=== PATIENT | female | born 1950 | race Caucasian/White ===

== ENCOUNTER → 2017-11-12 09:31 | Outpatient (CLI) | payer MEDICARE, OTHER, SELFPAY ==
[2017-11-12 11:04] LABS: Protein, Urine (Random) 10.1 mg/dL (<11.9); Protein:Creat Ratio 115 mg/g CRE (0-200)
[2017-11-12 11:13] LABS: Albumin, Serum 3.8 g/dL (3.2-5.0); BUN 15 mg/dL (7-18); BUN/Creat Ratio 11.8 RATIO (10-20); Calcium,Total 9.5 mg/dL (8.5-10.1); Chloride 105 mmol/L (98-107); Creatinine, Serum 1.27 mg/dL (0.55-1.02); EST Glomerular Filtration Rate 44 mL/min (>60); Est Glom Filt Rate - Afr Amer 54 mL/min (>60); Glucose 147 mg/dL (74-106); Phosphorus 3.4 mg/dL (2.5-4.9); Potassium 4.6 mmol/L (3.5-5.1); Sodium Level 138 mmol/L (136-145)
== END ==
PROVIDERS: Family Provider Family Medicine; PCP Family Medicine; Visit Provider Internal Medicine Nephrology
DX: E11.22 Type 2 diabetes mellitus with diabetic chronic kidney disease (principal); N18.3 Chronic kidney disease, stage 3 (moderate)
CPT/HCPCS: 36415; 80069; 82570; 84156

== ENCOUNTER → 2018-01-30 15:08 | Outpatient (CLI) | payer MEDICARE, OTHER, SELFPAY ==
--- NOTE | 2018-01-30 15:14 | RAD_ITS ---
STUDY: X-RAY - SACROILIAC JOINTS REASON FOR EXAM: Female, 67 years old. Sacroiliac joint dysfunction TECHNIQUE: 3 view(s) of the sacroiliac joints were obtained. COMPARISON: None. FINDINGS: There are degenerative changes of the bilateral sacroiliac joints left worse than right. Normal visualized sacral ala and sacrum. Normal visualized iliac bones. Normal visualized soft tissue structures. RAD/S-I Jts 3 or More Views IMPRESSION: Degenerative changes of the bilateral sacroiliac joints, as described above. Sacroiliac joints are patent. Electronically Signed: Denver Carter DO at 1:39 EDT , Service support ,
--- NOTE | 2018-01-30 15:14 | RAD_ITS ---
STUDY: X-RAY - PELVIS AND RIGHT HIP REASON FOR EXAM: Female, 67 years old. Sacroiliac joint dysfunction TECHNIQUE: Radiological exam, hip, unilateral, with pelvis when performed; 2 or 3 views. COMPARISON: None. FINDINGS: There is a non-specific bowel gas pattern. Normal visualized soft tissue structures. There is cortical sclerosis of the sacroiliac joints consistent with degenerative osteoarthritic changes. Normal bilateral superior and inferior pubic rami. Normal pubic symphysis. Normal bilateral ischial tuberosities. Normal visualized femoral head. Normal acetabulum. There is mild articular joint space narrowing of the hip. RAD/Hip 2-3 Views with Pelvis IMPRESSION: Mild hip joint space narrowing. No fracture or dislocation. Mild arthrosis of the sacroiliac joints with sclerosis. Electronically Signed: Denver Carter DO at 1:53 EDT , Service support ,
[2018-01-30 17:50] LABS: Absolute Lymphocyte Count 2.26 X10^3/ul (0.83-4.51); Absolute Neutrophil Count 4.5 X10^3/uL (2.0-7.7); Basophil# 0.03 X10^3/uL; Basophil% 0.4 % (0-1); Eosinophil# 0.09 X10^3/uL; Eosinophils% 1.2 % (0-5); Hematocrit 38.9 % (37-47); Hemoglobin 12.9 g/dl (12.0-15.0); Lymphocyte # 2.26 X10^3/ul (4.0); Lymphocyte % 29.5 % (19-41); Mean Corp Hgb Conc 33.2 g/gl (32-36); Mean Corpuscular Hgb 31.9 pg (27.0-32.0); Mean Corpuscular Volume 96.3 fL (81-99); Mean Platelet Vol. 10.2 fl (6.2-12.0); Monocyte# 0.75 X10^3/uL; Monocyte% 9.8 % (0-10); Neutrophil # 4.53 X10^3/uL (2.7-7.7); Platelet Count 259 K/mm3 (150-450); RBC Distribution Width CV 13.3 % (11.6-14.6); RBC Distribution Width SD 45.1 fl (35.1-43.9); Red Blood Count 4.04 M/mm3 (4.2-5.4); White Blood Count 7.7 K/mm3 (4.4-11.0)
[2018-01-30 17:51] LABS: POSITIVE COUNT NO; POSITIVE DIFFERENTIAL NO; POSITIVE MORPHOLOGY NO
[2018-01-30 18:19] LABS: ALB/GLOB Ratio 1.1 RATIO (0.9-2.4); AST(SGOT) 18 U/L (15-37); Alanine Aminotransfer ALT/SGPT 19 U/L (13-56); Albumin, Serum 4.1 g/dL (3.2-5.0); Alkaline Phosphatase 73 U/L (45-117); Anion Gap 10 (5-15); BUN 18 mg/dL (7-18); BUN/Creat Ratio 14.9 RATIO (10-20); CRP < 2.90 mg/L (0.0-3.0); Calcium,Total 9.3 mg/dL (8.5-10.1); Chloride 109 mmol/L (98-107); Cholesterol 103 mg/dL (200); Creatinine, Serum 1.21 mg/dL (0.55-1.02); EST Glomerular Filtration Rate 47 mL/min (>60); Est Glom Filt Rate - Afr Amer 57 mL/min (>60); Globulin 3.6 g/dL (2.2-4.2); Glucose 86 mg/dL (74-106); High Density Lipoprotein 45 mg/dL; Potassium 4.2 mmol/L (3.5-5.1); Protein, Total 7.7 g/dL (6.4-8.2); Sodium Level 141 mmol/L (136-145); T4 Free Direct 1.29 ng/dL (0.76-1.46); Thyroid Stim Hormone (TSH) 1.61 uIU/mL (0.358-3.74); Triglycerides 95 mg/dL; Very Low Density Lipoprotein 19 mg/dL (5-40)
[2018-01-30 18:20] LABS: Hemoglobin A1c 6.8 % (4.2-6.3)
[2018-01-30 18:24] LABS: Microalbumin,Random Urine 22.2 mg/L (NO RANGE EST.); Microalbumin:Creatinine Ratio 28.1 mg/g CRE (<30 mg/g CRE)
== END ==
PROVIDERS: Family Provider Family Medicine; PCP Family Medicine; Visit Provider Family Medicine
DX: M53.3 Sacrococcygeal disorders, not elsewhere classified (principal); I10 Essential (primary) hypertension; E11.8 Type 2 diabetes mellitus with unspecified complications
CPT/HCPCS: 36415; 72202; 73502; 80053; 80061; 82043; 82570; 83036; 84439; 84443; 85025; 86140

== ENCOUNTER → 2018-02-21 12:51 | Outpatient (CLI) | payer MEDICARE, OTHER, SELFPAY ==
--- NOTE | 2018-02-21 12:53 | BI_ITS ---
MAMMOGRAPHY - BILATERAL SCREENING REASON FOR EXAM: Female, 67 years old. Routine annual screening examination. PERTINENT HISTORY: Aunt with breast cancer. TECHNIQUE: Digital bilateral breast tavia (3D mammographic acquisition) in the CC and MLO projections. 2-D mediolateral oblique (MLO) and craniocaudad (CC) views of both breasts were obtained. CAD: Full Field Digital Mammography with Computer Added Detection was performed. COMPARISON: Comparison is made with prior study dated August 30, 2012. FINDINGS: Breast Composition: There are scattered areas of fibroglandular density. There are no dominant masses or suspicious calcifications. Stable benign appearing bilateral axillary lymph nodes. Stable 2.6 mm well-defined nodule in the axillary portion of the right breast suggests a very small lymph node. No other significant abnormalities are identified. There has been no significant change since the prior study. BI/SCREENING MAMM (CAD), BILAT IMPRESSION: Stable bilateral screening mammogram. Yearly follow-up mammogram recommended. (A) ASSESSMENT CATEGORY: BIRADS Category 2: Benign. A letter regarding these results will be sent to the patient by the facility within 30 days. Approximately 10% of breast cancers are not detected by mammography. A normal mammogram should not delay biopsy of a clinically suspicious abnormality. [id number] Electronically Signed: Andrey Berry MD at 15:33 EDT Tel [phone], Service support ,
--- NOTE | 2018-02-21 13:00 | BD_ITS ---
STUDY: DUAL ENERGY X-RAY ABSORPTIOMETRY / DXA REASON FOR EXAM: Female, 67 years old. The patient is postmenopausal. Loss of height. TECHNIQUE: Bone Mineral Density (BMD) measurements of lumbar spine and bilateral hips were obtained. COMPARISON: None. FINDINGS: Lumbar Spine (L1-L4): g/cm2 (1.095) / T-score (-0.6) / Z-score (1.0) Findings are suggestive of normal bone density with a low fracture risk. Left Femur Total: g/cm2 (0.900) / T-score (-0.9) / Z-score (0.6) Left Femoral Neck: g/cm2 (0.853) / T-score (-1.3) / Z-score (0.3) Right Femur Total: g/cm2 (0.882) / T-score (-1.0) / Z-score (0.4) Right Femoral Neck: g/cm2 (0.875) / T-score (-1.2) / Z-score (0.5) BD/Dexa Bone Density Study IMPRESSION: The patient is considered osteopenic as outlined below according to World [place] Organization (WHO) criteria with a moderate fracture risk. Reference Information: The T-score is the number of standard deviations above or below the standard which is normal for young adults at their peak bone mineral density. The World Health Organization (WHO) interprets the T-scores as follows: Above -1 Normal bone density Between -1 and -2.5 Osteopenia Equal to / or below -2.5 Osteoporosis As a practical clinical guideline, osteopenia may be graded as follows: Mild -1 through -1.5 Moderate -1.6 through -2.0 Severe -2.1 through -2.4 The Z-score is the number of standard deviations above or below age-matched controls. A Z-score of less than -1.5 would be considered abnormal. References: 1. NIH Osteoporosis and Related Bone Diseases http://www.osteo.org 2. International Society for Clinical Densitometry http://www.iscd.org 3. National Osteoporosis Foundation http://www.nof.org Electronically Signed: Andrey Berry MD at 15:47 EDT Tel [phone], Service support ,
== END ==
PROVIDERS: Family Provider Family Medicine; PCP Family Medicine; Visit Provider Family Medicine
DX: Z12.31 Encounter for screening mammogram for malignant neoplasm of breast (principal); Z78.0 Asymptomatic menopausal state; M85.80 Other specified disorders of bone density and structure, unspecified site
CPT/HCPCS: 77063; 77067; 77080

== ENCOUNTER → 2018-07-16 08:41 | Outpatient (CLI) | payer MEDICARE, OTHER, SELFPAY ==
[2018-07-16 10:07] LABS: Albumin, Serum 3.7 g/dL (3.2-5.0); BUN 13 mg/dL (7-18); BUN/Creat Ratio 11.5 RATIO (10-20); Calcium,Total 9.3 mg/dL (8.5-10.1); Chloride 108 mmol/L (98-107); Creatinine, Serum 1.13 mg/dL (0.55-1.02); EST Glomerular Filtration Rate 51 mL/min (>60); Est Glom Filt Rate - Afr Amer 61 mL/min (>60); Glucose 122 mg/dL (74-106); Phosphorus 3.6 mg/dL (2.5-4.9); Potassium 4.2 mmol/L (3.5-5.1); Sodium Level 143 mmol/L (136-145)
[2018-07-16 11:14] LABS: Protein, Urine (Random) 12.6 mg/dL (<11.9); Protein:Creat Ratio 105 mg/g CRE (0-200)
== END ==
PROVIDERS: Family Provider Family Medicine; PCP Family Medicine; Referring Provider Internal Medicine Nephrology; Visit Provider Internal Medicine Nephrology
DX: E11.22 Type 2 diabetes mellitus with diabetic chronic kidney disease (principal); N18.3 Chronic kidney disease, stage 3 (moderate)
CPT/HCPCS: 36415; 80069; 82570; 84156

== ENCOUNTER → 2019-02-26 09:00 | Outpatient (CLI) | payer MEDICARE, OTHER, SELFPAY ==
[2018-03-26 13:05] VITALS: BMI 31.8
[2019-02-26 10:30] LABS: Albumin, Serum 3.9 g/dL (3.2-5.0); BUN 17 mg/dL (7-18); BUN/Creat Ratio 13.7 RATIO (10-20); Calcium,Total 9.1 mg/dL (8.5-10.1); Chloride 109 mmol/L (98-107); Creatinine, Serum 1.24 mg/dL (0.55-1.02); EST Glomerular Filtration Rate 45 mL/min (>60); Est Glom Filt Rate - Afr Amer 55 mL/min (>60); Glucose 128 mg/dL (74-106); Phosphorus 3.3 mg/dL (2.5-4.9); Potassium 4.4 mmol/L (3.5-5.1); Sodium Level 140 mmol/L (136-145)
[2019-02-26 10:39] LABS: PTHIN 62.9 pg/mL (18.4-80.1)
[2019-02-26 13:24] LABS: Protein:Creat Ratio 168 mg/g CRE (0-200)
[2019-02-26 16:25] LABS: Hemoglobin A1c 6.7 % (4.2-6.3)
[2019-02-26 16:26] LABS: Thyroid Stim Hormone (TSH) 0.91 uIU/mL (0.358-3.74)
== END ==
PROVIDERS: Internal Medicine Nephrology; Family Provider Family Medicine; PCP Family Medicine; Referring Provider Family Medicine; Visit Provider Family Medicine
DX: E11.22 Type 2 diabetes mellitus with diabetic chronic kidney disease (principal); N18.3 Chronic kidney disease, stage 3 (moderate); E03.9 Hypothyroidism, unspecified
CPT/HCPCS: 36415; 80069; 82570; 83036; 83970; 84156; 84443

== ENCOUNTER → 2019-03-19 14:48 | Outpatient (CLI) | payer MEDICARE, SELFPAY ==
--- NOTE | 2019-03-19 14:54 | BI_ITS ---
MAMMOGRAPHY - BILATERAL SCREENING REASON FOR EXAM: Female, 68 years old. Routine annual screening examination. PERTINENT HISTORY: Aunt with breast cancer. TECHNIQUE: Digital bilateral breast saira (3D mammographic acquisition) in the CC and MLO projections. 2-D mediolateral oblique (MLO) and craniocaudad (CC) views of both breasts were obtained. CAD: Full Field Digital Mammography with Computer Added Detection was performed. COMPARISON: Comparison is made with prior study dated February 21, 2018 and August 30, 2012. FINDINGS: Breast Composition: There are scattered areas of fibroglandular density. There are no dominant masses or suspicious calcifications. Stable 2.6 mm well-defined nodule in the axillary portion of the right breast. Stable appearance of the bilateral axillary lymph nodes. No other significant abnormalities are identified. There has been no significant change since the prior study. BI/SCREEN MAMM (CAD) W/SAIRA BILAT IMPRESSION: Stable bilateral screening mammogram. Yearly follow-up mammogram recommended. (A) ASSESSMENT CATEGORY: BIRADS Category 2: Benign. A letter regarding these results will be sent to the patient by the facility within 30 days. Approximately 10% of breast cancers are not detected by mammography. A normal mammogram should not delay biopsy of a clinically suspicious abnormality. [id number] Electronically Signed: Andrey Berry, at 15:50 EDT , Service support ,
== END ==
PROVIDERS: Family Provider Family Medicine; PCP Family Medicine; Referring Provider Nurse Practitioner Adult Health; Visit Provider Nurse Practitioner Adult Health
DX: Z12.31 Encounter for screening mammogram for malignant neoplasm of breast (principal)
CPT/HCPCS: 77063; 77067

== ENCOUNTER → 2019-03-26 09:25 | Outpatient (CLI) | payer MEDICARE, OTHER, SELFPAY ==
[2019-03-25 12:45] VITALS: BMI 31.5
[2019-03-26 10:33] LABS: BNP,B-Type NATRIURETIC PEPTIDE 202.1 pg/mL (0-100)
[2019-03-26 10:36] LABS: AST(SGOT) 17 U/L (15-37); Alanine Aminotransfer ALT/SGPT 18 U/L (13-56); Albumin, Serum 3.9 g/dL (3.2-5.0); Alkaline Phosphatase 71 U/L (45-117); Anion Gap 6 (5-15); BUN 17 mg/dL (7-18); BUN/Creat Ratio 13.3 RATIO (10-20); Bilirubin, Direct 0.18 mg/dL (0.00-0.30); Calcium,Total 9.2 mg/dL (8.5-10.1); Chloride 109 mmol/L (98-107); Cholesterol 145 mg/dL (200); Creatinine, Serum 1.28 mg/dL (0.55-1.02); EST Glomerular Filtration Rate 44 mL/min (>60); Est Glom Filt Rate - Afr Amer 53 mL/min (>60); Globulin 3.5 g/dL (2.2-4.2); Glucose 136 mg/dL (74-106); High Density Lipoprotein 46 mg/dL; Potassium 4.2 mmol/L (3.5-5.1); Protein, Total 7.4 g/dL (6.4-8.2); Sodium Level 139 mmol/L (136-145); Thyroid Stim Hormone (TSH) 0.91 uIU/mL (0.358-3.74); Triglycerides 171 mg/dL; Very Low Density Lipoprotein 34 mg/dL (5-40)
== END ==
PROVIDERS: Family Provider Family Medicine; PCP Family Medicine; Referring Provider Internal Medicine Cardiovascular Disease; Visit Provider Internal Medicine Cardiovascular Disease
DX: I50.32 Chronic diastolic (congestive) heart failure (principal); E78.2 Mixed hyperlipidemia
CPT/HCPCS: 36415; 80048; 80061; 80076; 83880; 84443

== ENCOUNTER → 2019-04-11 13:44 | Outpatient (CLI) | payer MEDICARE, OTHER, SELFPAY ==
[2019-03-25 12:45] VITALS: BMI 31.5
--- NOTE | 2019-04-11 13:46 | ECHOD_ITS ---
Reason For Study: AFIB/BLUTTER Procedure This was a 2D Doppler, Color Flow transthoracic echocardiogram. The study was technically difficult. Due to arrhythmia. Exam performed in department. Left Ventricle Normal LV size. Left ventricular systolic function is lower limits of normal. The estimated ejection fraction is 53 %. Unable to assess diastolic dysfunction due to arrhythmia. No regional wall motion abnormalities noted. Right Ventricle Normal RV size. Normal systolic function. Atria Normal left atrium. Normal right atrium. Mitral Valve Moderate focal mitral valve calcification, bileaflet. Moderate focal mitral valve calcification of the anterior leaflet. Mild (1+) eccentric mitral valve insufficiency. Tricuspid Valve Normal tricuspid valve. Mild tricuspid valve insufficiency. Pulmonary artery systolic pressure is 26 mmHg. Aortic Valve Trisinus/trileaflet aortic valve. Mild (1+) aortic valve insufficiency. Pulmonic Valve Normal pulmonic valve. Great Vessels Normal aortic root. The pulmonary artery is normal size. Normal inferior vena cava. Pericardium/Pleural No pericardial effusion. MMode/2D Measurements & Calculations LVIDd: 4.1 cm IVSd: 1.0 cm LVOT diam: 2.0 cm LVIDs: 2.9 cm LVPWd: 1.0 cm LVOT area: 3.2 cm2 RVDd: 3.0 cm FS: 29.8 % Ao root diam: 3.5 cm LAV(MOD-bp): 66.5 ml EDV(MOD-sp4): 50.5 ml LAV(MOD-bp) Indexed: 36.1 ml/m2 ESV(MOD-sp4): 20.5 ml LAV(MOD-sp2): 66.9 ml EF(MOD-sp4): 59.5 % LAV(MOD-sp4): 60.4 ml EDV(MOD-sp2): 53.7 ml SV(MOD-sp4): 30.1 ml SV(MOD-sp2): 29.1 ml EF(MOD-sp2): 54.3 % LA A4 area: 19.2 cm2 LA dimension(2D): 4.0 cm RA A4 area: 16.4 cm2 Doppler Measurements & Calculations MV E max tonya: 117.3 cm/sec MV V2 max: 123.8 cm/sec Ao V2 max: 143.0 cm/sec MV max P.1 mmHg Ao max P.2 mmHg MV V2 mean: 59.6 cm/sec Ao V2 mean: 106.9 cm/sec MV mean P.8 mmHg Ao mean P.8 mmHg MV V2 VTI: 30.1 cm Ao V2 VTI: 26.4 cm MVA(VTI): 2.1 cm2 OTIS(I,D): 2.3 cm2 OTIS(V,D): 2.2 cm2 AI max tonya: 410.2 cm/sec LV V1 max: 97.6 cm/sec MR max tonya: 460.4 cm/sec AI max P.3 mmHg LV V1 max P.8 mmHg MR max P.8 mmHg LV V1 mean P.3 mmHg MR mean tonya: 362.1 cm/sec AI dec slope: 179.8 cm/sec2 LV V1 mean: 72.7 cm/sec MR mean P.4 mmHg AI P1/2t: 668.1 msec LV V1 VTI: 19.2 cm MR VTI: 146.7 cm SV(LVOT): 61.8 ml PA V2 max: 73.8 cm/sec TR max tonya: 234.3 cm/sec TR max P.0 mmHg Interpretation Summary Normal LV size. Left ventricular systolic function is lower limits of normal. The estimated ejection fraction is 53 %. Unable to assess diastolic dysfunction due to arrhythmia. Mild tricuspid valve insufficiency. Ordering Physician: Mike Joiner Referring Physician: Cuong Patel Performed By: Blele Pal, FER, RVT
== END ==
PROVIDERS: Family Provider Family Medicine; PCP Family Medicine; Referring Provider Internal Medicine Cardiovascular Disease; Visit Provider Internal Medicine Cardiovascular Disease
DX: I34.0 Nonrheumatic mitral (valve) insufficiency (principal); I34.2 Nonrheumatic mitral (valve) stenosis; I48.91 Unspecified atrial fibrillation
CPT/HCPCS: 93306

== ENCOUNTER → 2019-04-21 07:35 | Outpatient (CLI) | payer MEDICARE, OTHER, SELFPAY ==
[2019-03-25 12:45] VITALS: BMI 31.5
[2019-04-21 08:38] LABS: Albumin, Serum 3.8 g/dL (3.2-5.0); BUN 27 mg/dL (7-18); BUN/Creat Ratio 19.1 RATIO (10-20); Calcium,Total 9.2 mg/dL (8.5-10.1); Chloride 106 mmol/L (98-107); Creatinine, Serum 1.41 mg/dL (0.55-1.02); EST Glomerular Filtration Rate 39 mL/min (>60); Est Glom Filt Rate - Afr Amer 47 mL/min (>60); Glucose 157 mg/dL (74-106); Phosphorus 3.2 mg/dL (2.5-4.9); Sodium Level 142 mmol/L (136-145)
== END ==
PROVIDERS: Family Provider Family Medicine; PCP Family Medicine; Referring Provider Internal Medicine Nephrology; Visit Provider Internal Medicine Nephrology
DX: N18.3 Chronic kidney disease, stage 3 (moderate) (principal)
CPT/HCPCS: 36415; 80069

== ENCOUNTER → 2019-05-16 07:45 | Outpatient (CLI) | payer MEDICARE, OTHER, SELFPAY ==
[2019-03-25 12:45] VITALS: BMI 31.5
[2019-05-16 08:43] LABS: Absolute Lymphocyte Count 2.03 X10^3/uL (0.83-4.51); Absolute Neutrophil Count 5.6 X10^3/uL (2.0-7.7); Basophil# 0.02 X10^3/uL; Basophil% 0.2 % (0-1); Eosinophil# 0.09 X10^3/uL; Eosinophils% 1.1 % (0-5); Hematocrit 40.3 % (37-47); Hemoglobin 13.5 g/dL (12.0-15.0); Lymphocyte # 2.03 X10^3/ul (4.0); Lymphocyte % 23.8 % (19-41); Mean Corp Hgb Conc 33.5 g/dL (32-36); Mean Corpuscular Hgb 32.5 pg (27.0-32.0); Mean Corpuscular Volume 96.9 fL (81-99); Mean Platelet Vol. 9.4 fl (6.2-12.0); Monocyte# 0.81 X10^3/uL; Monocyte% 9.5 % (0-10); NRBC Flagged by Analyzer 0 % (0-5); Neutrophil # 5.55 X10^3/uL (2.7-7.7); Neutrophil % 65.2 % (47-70); Platelet Count 231 K/mm3 (150-450); RBC Distribution Width CV 13.2 % (11.6-14.6); RBC Distribution Width SD 46.6 fl (35.1-43.9); Red Blood Count 4.16 M/mm3 (4.2-5.4); White Blood Count 8.5 K/mm3 (4.4-11.0)
[2019-05-16 09:15] LABS: Anion Gap 8 (5-15); BUN 20 mg/dL (7-18); BUN/Creat Ratio 14.8 RATIO (10-20); Calcium,Total 9.1 mg/dL (8.5-10.1); Chloride 109 mmol/L (98-107); Creatinine, Serum 1.35 mg/dL (0.55-1.02); EST Glomerular Filtration Rate 41 mL/min (>60); Est Glom Filt Rate - Afr Amer 50 mL/min (>60); Glucose 145 mg/dL (74-106); Sodium Level 143 mmol/L (136-145)
== END ==
PROVIDERS: Family Provider Family Medicine; PCP Family Medicine; Referring Provider Physician Assistant Medical; Visit Provider Physician Assistant Medical
DX: I48.1 Persistent atrial fibrillation (principal); I11.0 Hypertensive heart disease with heart failure; I50.32 Chronic diastolic (congestive) heart failure
CPT/HCPCS: 36415; 80048; 83735; 85025

== ENCOUNTER 2023-03-19 18:38 | Inpatient (IN) | payer MEDICARE, OTHER, SELFPAY ==
[2023-03-19] VITALS (21 sets, daily range): BP systolic 66–133; BP diastolic 28–98; PULSE 38–89; RESP 13–25; TEMP 36.2–37.1; O2SAT 89–100; BMI 30.2; BMI 28.3
--- NOTE | 2023-03-19 18:39 | ED.RN ---
This nurse started triaging pt in room d/t no rooms being available. while getting pt in computer pt went unresponsive and HR read 20 on monitor. staff assist called and pt taken back to room 2, dr. vazquez at bedside.
[2023-03-19] MEDS: Atropine Sulfate 1 MG/10 ML Syringe IV (18:42)
[2023-03-19] MEDS: Epinephrine IV 1 mg/10 ml syringe 0.5 MG IV (18:47)
[2023-03-19] MEDS: Metoclopramide 10 MG/2 ML Vial 5 MG IV (18:50)
[2023-03-19 19:03] LABS: Bedside Glucose 185 mg/dL (74-106)
[2023-03-19 19:03] LABS: Absolute Neutrophil Count 5.7 X10^3/uL (2.0-7.7); Basophil# 0.06 X10^3/uL; Basophil% 0.6 % (0-1); Eosinophils% 1.1 % (0-5); Hematocrit 37.4 % (37-47); Hemoglobin 11.8 g/dL (12.0-15.0); Lymphocyte % 27.8 % (19-41); Mean Corp Hgb Conc 31.6 g/dL (32-36); Mean Corpuscular Hgb 29.9 pg (27.0-32.0); Mean Corpuscular Volume 94.7 fL (81-99); Mean Platelet Vol. 10.1 fl (6.2-12.0); Monocyte# 0.83 X10^3/uL; Monocyte% 8.9 % (0-10); NRBC Flagged by Analyzer 0 % (0-5); Neutrophil # 5.72 X10^3/uL (2.7-7.7); Neutrophil % 61.1 % (47-70); Platelet Count 230 K/mm3 (150-450); RBC Distribution Width CV 15.5 % (11.6-14.6); RBC Distribution Width SD 53.3 fl (35.1-43.9); Red Blood Count 3.95 M/mm3 (4.2-5.4); White Blood Count 9.4 K/mm3 (4.4-11.0)
[2023-03-19 19:20] LABS: Anion Gap 10 (5-15); BUN 40 mg/dL (7-18); BUN/Creat Ratio 19.8 RATIO (10-20); Calcium,Total 9.3 mg/dL (8.5-10.1); Chloride 109 mmol/L (98-107); Creatinine, Serum 2.02 mg/dL (0.55-1.02); EST Glomerular Filtration Rate 26 mL/min (>60); Est Glom Filt Rate - Afr Amer 31 mL/min (>60); Estimated Creatinine Clearance 21.99 ml/min; Glucose 205 mg/dL (74-106); Potassium 5.2 mmol/L (3.5-5.1); Sodium Level 137 mmol/L (136-145); Troponin-I HS (w/2H Reflex) 20 pg/mL (3.0-54.0)
[2023-03-19] MEDS: fentaNYL 100 MCG/2 ML Ampul 12.5 MCG IV (19:49)
--- NOTE | 2023-03-19 19:57 | EDS_ITS ---
HPI History of Present Illness Chief Complaint: Chest Pain Detail of Chief Complaint: Syncope Informant: patient and family Onset/Context/Timing Onset: Today Narrative Narrative: Patient presents via private vehicle secondary to syncopal episodes at home. Patient had a syncopal episode in triage with a heart rate documented in the 20s. She was immediately brought back to room 2. She was placed in Trendelenburg position. Blood pressure was 66 systolic and heart rate was in the low 30s. Family states that she is started complaining of some chest pressure not feeling well about 15 minutes before they arrived. Once the patient is awake and able to tell us her history she states that she has not felt well all day. She does report some chest pressure. She does have a history of atrial fibrillation. She denies any recent medication changes. Her doctors are in [place] and she just arrived to the area 4 days ago. It does appear patient used to live locally and we do have some old records on her. Patient is anticoagulated on Eliquis and is confident that she has not missed any doses. [facility] Medical History (Updated 03/19/23 @ 20:[address] Sanam Stubbs MD) Chronic diastolic (congestive) heart failure Chronic kidney disease (CKD) Essential (primary) hypertension Hyperlipidemia Incomplete left bundle branch block (LBBB) Nonrheumatic mitral valve stenosis with insufficiency Nonrheumatic tricuspid (valve) insufficiency Obesity Persistent atrial fibrillation Secondary pulmonary arterial hypertension Type 2 diabetes mellitus Home Medications insulin detemir U-100 100 unit/mL (3 mL) subcutaneous pen 8 unit subcut DAILY 03/26/18 [History Last Taken Unknown] levothyroxine 25 mcg tablet 25 mcg PO QDAY 03/26/18 [History Last Taken Unknown] metformin 500 mg tablet 500 mg PO BID 03/26/18 [History Last Taken Unknown] apixaban 5 mg tablet (Eliquis) 5 mg PO BID #60 tabs 03/09/20 [Rx Last Taken Unknown] diltiazem HCl 300 mg capsule,extended release 24 hr 300 mg PO QDAY #90 caps 04/13/20 [Rx Last Taken Unknown] cyanocobalamin (vitamin B-12) 1,000 mcg tablet (Vitamin B-12) 1,000 mcg PO DAILY 03/19/23 [History Last Taken Unknown] furosemide 20 mg tablet 20 mg PO BID 03/19/23 [History Last Taken Unknown] metoprolol tartrate 100 mg tablet 150 mg PO BID 03/19/23 [History Last Taken Unknown] olmesartan 20 mg tablet 10 mg PO DAILY 03/19/23 [History Last Taken Unknown] rosuvastatin 10 mg tablet 10 mg PO DAILY 03/19/23 [History Last Taken Unknown] Allergy/AdvReac Type Severity Reaction Status Date / Time MARCO Inhibitors AdvReac Cough Verified 03/19/23 18:45 Family History Mother CAD (coronary artery disease) Brother , Age 65 [place] CAD (coronary artery disease) Atrial fibrillation Myocardial infarction Father , in MVA No problems noted. Surgical History History of cholecystectomy S/P ALY (total abdominal hysterectomy) Social History Smoking Status: Former smoker how long ago did patient quit smoking: greater than 20 years alcohol intake: never ROS ROS ED Constitutional Constitutional ED: Denies chills or fever(s) Eyes Eyes: Denies change in vision ENT ENT ED: Denies sore throat Cardiovascular Cardiovascular: Reports chest pain Respiratory/Chest Respiratory/Chest: Denies cough or dyspnea Gastrointestinal Gastrointestinal: Reports nausea and vomiting; Denies abdominal pain Musculoskeletal Musculoskeletal: Denies back pain Neurologic Neurologic: Denies headache(s) or paresthesias EXAM Physical Exam Const Vital Signs: 03/19/23 18:41 03/19/23 18:45 03/19/23 18:52 Temperature 97.2 F L Temperature Source Temporal Pulse Rate 38 L 42 L 81 Respiratory Rate 18 13 Respiratory Effort Respiratory Pattern Blood Pressure 121/28 H 66/49 L 94/65 Blood Pressure Mean 59 54 74 Pulse Ox 97 94 Oxygen Delivery Method Room Air Room Air Oxygen Flow Rate (L/min) 03/19/23 18:55 03/19/23 19:01 03/19/23 19:02 Temperature Temperature Source Pulse Rate 56 L 47 L Respiratory Rate 16 Respiratory Effort Respiratory Pattern Blood Pressure 104/73 78/53 L Blood Pressure Mean 83 61 Pulse Ox 99 95 Oxygen Delivery Method Room Air Nasal Cannula Nasal Cannula Oxygen Flow Rate (L/min) 5 5 03/19/23 19:09 03/19/23 19:14 03/19/23 19:18 Temperature Temperature Source Pulse Rate 48 L 41 L Respiratory Rate 16 15 Respiratory Effort Normal Respiratory Pattern Normal Blood Pressure 81/47 L 78/55 L Blood Pressure Mean 58 62 Pulse Ox 92 Oxygen Delivery Method Nasal Cannula Oxygen Flow Rate (L/min) 5 03/19/23 19:34 03/19/23 19:53 Temperature Temperature Source Pulse Rate 56 L 60 Respiratory Rate 21 H 15 Respiratory Effort Respiratory Pattern Blood Pressure 108/80 122/93 H Blood Pressure Mean 89 102 Pulse Ox 96 95 Oxygen Delivery Method Nasal Cannula Oxygen Flow Rate (L/min) 5 5 Positive well nourished and well developed General Appearance ED: well developed HEENT Reports dry mucous membranes Mouth ED: Yes dry mucous membranes Mouth: dry mucous membranes Eyes EOMs intact bilaterally Chest Wall inspection of chest normal and palpation of chest normal Resp normal respiratory effort and clear to auscultation bilaterally Cardio Rate: bradycardia GI non-tender Palpation: soft Extremity normal to inspection Neuro oriented x3 Neuro Narrative: No focal neurologic deficits. MDM MDM MDM Narrative Medical decision making narrative: Pacer pads were placed and the patient IV line was established. Patient was given atropine with no response in her heart rate. IV fluids are initiated. Patient is given 0.5 epinephrine with improvement in her heart rate and blood pressure. Labwork obtained to evaluate for leukocytosis, anemia, and electrolyte derangement. Chest x-ray obtained to evaluate for acute lung pathology, cardiac size, or mediastinal abnormality. EKG obtained to evaluate for cardiac arrhythmia/ischemia. After several minutes patient's heart rate did slowly drop back down into the 40s and blood pressure did drop. She was initiated on an epinephrine drip. Lab Data Attestation: I reviewed the patient's lab results. Labs: Laboratory Results - last 24 hr 03/19/23 03/19/23 03/19/23 18:42 18:42 18:44 WBC 9.4 RBC 3.95 L Hgb 11.8 L Hct 37.4 MCV 94.7 MCH 29.9 MCHC 31.6 L RDW Std Deviation 53.3 H RDW Coeff of [place] 15.5 H Plt Count 230 MPV 10.1 Immature Gran % (Auto) 0.500 Neut % (Auto) 61.1 Lymph % (Auto) 27.8 [place] % (Auto) 8.9 Eos % (Auto) 1.1 Baso % (Auto) 0.6 Absolute Neuts (auto) 5.7 Absolute Lymphs (auto) 2.60 Nucleated RBC % 0 Sodium 137 Potassium 5.2 H Chloride 109 H Carbon Dioxide 18.0 L Anion Gap 10 BUN 40 H Creatinine 2.02 H Estim Creat Clear Calc 21.99 Est GFR (MDRD) Af Amer 31 L Est GFR (MDRD) Non-Af 26 L BUN/Creatinine Ratio 19.8 Glucose 205 H Calcium 9.3 Troponin I High Sens 20 POC Glucose 185 H EKG Initial EKG: Attestation: I personally reviewed and interpreted this EKG as follows: Interpretation: Atrial Fibrillation (Atrial fibrillation with a ventricular response of 30. No significant ST change.) Follow-up EKG: Attestation: I personally reviewed and interpreted this EKG as follows: Interpretation: Atrial Fibrillation (Atrial fibrillation with a rate of 54 bpm.) Treatment and Re-Evaluation :: CBC is unremarkable. Chemistry studies reveal a bicarb of 18, BUN of 40, creatinine of 2.02. Glucose is 205. Troponin is 20. Chest x-ray is pending at this time. EKG x2 reveals atrial fibrillation with no specific ST change. On epinephrine drip at 0.3 mics per kilo heart rate is in the 50s and blood pressure is between 100-110 systolic. Given that she is on Cardizem she was given calcium gluconate. I spoke with Dr. Wynn, on-call for cardiology. He recommended switching her epinephrine drip to dopamine and placing her in the ICU. Her rate control medicines should be held. I will speak with the hospitalist. Critical Care Time Critical Care Time: Yes Critical care time (excluding procedures): 30-74 minutes (45 mins), Discussing w/Patient &/or Family/Lubricating Machine Tender, Discussing w/Consultants, Arranging Admission or Transfer and Performing Direct Patient Care at Bedside Discharge Plan Triage Chief Complaint: Chest Pain ED Provider: Sanam Stubbs Dx/Rx/DC Orders Clinical Impression: Bradycardia, Syncope Prescriptions: No Action levothyroxine 25 mcg tablet 25 mcg PO QDAY metformin 500 mg tablet 500 mg PO BID insulin detemir U-100 100 unit/mL (3 mL) insulin pen 8 unit SC DAILY metoprolol tartrate 100 mg Tablet 150 mg PO BID furosemide 20 mg Tablet 20 mg PO BID olmesartan 20 mg Tablet 10 mg PO DAILY rosuvastatin 10 mg Tablet 10 mg PO DAILY cyanocobalamin (vitamin B-12) [Vitamin B-12] 1,000 mcg Tablet 1,000 mcg PO DAILY Eliquis 5 mg tablet 5 mg PO BID Qty: 60 11RF diltiazem HCl 300 mg capsule,extended release 24hr 300 mg PO QDAY Qty: 90 3RF Primary Care Provider: Care Physician,No Primary Referrals: Care Physician,No Primary [Primary Care Provider] - Disposition Disposition: Acute Care Hospital [facility]
--- NOTE | 2023-03-19 20:05 | RAD_ITS ---
INDICATION: chest pain EXAMINATION/TECHNIQUE: X-RAY - XR Chest 1 View COMPARISON: Chest x-ray August 11, 2015. FINDINGS: LINES/DEVICES: None. LUNGS: Symmetric normal lung volumes. No airspace opacity or abnormal interstitial pattern. No nodule or mass. No pleural effusion or pneumothorax. MEDIASTINUM AND CARDIOVASCULAR STRUCTURES: Normal size and contour of the cardiomediastinal silhouette. No evidence of pulmonary vascular congestion. Aortic arch intimal calcifications noted. BONES AND SOFT TISSUES: No fracture or focal osseous lesion. Mild lateral curvature lower thoracic spine, convex right. Degenerative endplate changes noted. RAD/Chest 1 View (Portable) IMPRESSION: 1. No radiographic evidence of acute cardiopulmonary disease. Electronically Signed: Gennaro Donaldson DO at 20:33 EDT ,
[2023-03-19] MEDS: DOPamine IV 800 MG/250 ML IV.SOLN. 7.7 MG CONT INF (20:06)
--- NOTE | 2023-03-19 20:28 | HP.PCM.HOS_ITS ---
HPI - General General Date of Admission: 03/19/23 Date of Service: 03/19/23 Chief Complaint: Syncope HPI Narrative AMALIA CORRAL, is a 72 F with a significant history of hypothyroidism; atrial fibrillation; and hypertension who presents emergency department with multiple episodes of syncope on the same day of presentation. Associated with her symptoms is lightheadedness, nausea, vomiting, blurry vision and malaise. At the triage of the emergency department patient's passed out and her heart rate was in the 20s. At the emergency department initially systolic blood pressure was in the 60s and heart rate was in the 30s. Patient was placed in reverse Trendelenburg position. Patient continued to vomit at the emergency department. Patient was given atropine, epinephrine and was started on epinephrine drip. Patient is on calcium channel rajinder at home and also on a beta-rajinder. She was given calcium gluconate in an attempt to reverse the calcium channel rajinder. Emergent department discussed the case with cardiology who recommended the patient be started on dopamine drip. Patient denies any other symptoms except the posterior side of her right knee. She is on Eliquis and reportedly has been compliant with her Eliquis. Reportedly she moved from [place] 2 days ago and lives with a daughter. Her was recently flown to [facility] for head bleed. [facility] Medical History (Updated 03/20/23 @ 07:[address] Geeta Michaud DO) Chronic diastolic (congestive) heart failure Chronic kidney disease (CKD) Essential (primary) hypertension Hyperlipidemia Incomplete left bundle branch block (LBBB) Nonrheumatic mitral valve stenosis with insufficiency Nonrheumatic tricuspid (valve) insufficiency Obesity Persistent atrial fibrillation Secondary pulmonary arterial hypertension Type 2 diabetes mellitus Home Medications insulin detemir U-100 100 unit/mL (3 mL) subcutaneous pen 8 unit subcut DAILY 03/26/18 [History Last Taken Unknown] levothyroxine 25 mcg tablet 25 mcg PO QDAY 03/26/18 [History Last Taken Unknown] metformin 500 mg tablet 500 mg PO BID 03/26/18 [History Last Taken Unknown] apixaban 5 mg tablet (Eliquis) 5 mg PO BID #60 tabs 03/09/20 [Rx Last Taken Unknown] diltiazem HCl 300 mg capsule,extended release 24 hr 300 mg PO QDAY #90 caps 04/13/20 [Rx Last Taken Unknown] cyanocobalamin (vitamin B-12) 1,000 mcg tablet (Vitamin B-12) 1,000 mcg PO DAILY 03/19/23 [History Last Taken Unknown] furosemide 20 mg tablet 20 mg PO BID 03/19/23 [History Last Taken Unknown] metoprolol tartrate 100 mg tablet 150 mg PO BID 03/19/23 [History Last Taken Unknown] olmesartan 20 mg tablet 10 mg PO DAILY 03/19/23 [History Last Taken Unknown] rosuvastatin 10 mg tablet 10 mg PO DAILY 03/19/23 [History Last Taken Unknown] Allergy/AdvReac Type Severity Reaction Status Date / Time MARCO Inhibitors AdvReac Cough Verified 03/19/23 18:45 Family History Mother CAD (coronary artery disease) Brother , Age 65 [place] CAD (coronary artery disease) Atrial fibrillation Myocardial infarction Father , in MVA No problems noted. Surgical History History of cholecystectomy S/P ALY (total abdominal hysterectomy) Social History Smoking Status: Former smoker how long ago did patient quit smoking: greater than 20 years alcohol intake: never ROS ROS Narrative Pertinent positives and pertinent negatives as noted in HPI. All other systems were reviewed and are negative Vital Signs Vital Signs Vital Signs: 03/19/23 18:41 03/19/23 18:45 03/19/23 18:52 Temperature 97.2 F L Temperature Source Temporal Pulse Rate 38 L 42 L 81 Respiratory Rate 18 13 Respiratory Effort Respiratory Pattern Blood Pressure 121/28 H 66/49 L 94/65 Blood Pressure Mean 59 54 74 Pulse Ox 97 94 Oxygen Delivery Method Room Air Room Air Oxygen Flow Rate (L/min) 03/19/23 18:55 03/19/23 19:01 03/19/23 19:02 Temperature Temperature Source Pulse Rate 56 L 47 L Respiratory Rate 16 Respiratory Effort Respiratory Pattern Blood Pressure 104/73 78/53 L Blood Pressure Mean 83 61 Pulse Ox 99 95 Oxygen Delivery Method Room Air Nasal Cannula Nasal Cannula Oxygen Flow Rate (L/min) 5 5 03/19/23 19:09 03/19/23 19:14 03/19/23 19:18 Temperature Temperature Source Pulse Rate 48 L 41 L Respiratory Rate 16 15 Respiratory Effort Normal Respiratory Pattern Normal Blood Pressure 81/47 L 78/55 L Blood Pressure Mean 58 62 Pulse Ox 92 Oxygen Delivery Method Nasal Cannula Oxygen Flow Rate (L/min) 5 03/19/23 19:34 03/19/23 19:53 03/19/23 20:06 Temperature Temperature Source Pulse Rate 56 L 60 46 L Respiratory Rate 21 H 15 15 Respiratory Effort Respiratory Pattern Blood Pressure 108/80 122/93 H 92/59 L Blood Pressure Mean 89 102 70 Pulse Ox 96 95 99 Oxygen Delivery Method Nasal Cannula Nasal Cannula Oxygen Flow Rate (L/min) 5 5 5 03/19/23 20:17 03/19/23 20:25 Temperature 97.6 F L Temperature Source Temporal Pulse Rate 56 L 73 Respiratory Rate 21 H 19 H Respiratory Effort Respiratory Pattern Blood Pressure 83/52 L 95/56 L Blood Pressure Mean 62 69 Pulse Ox 99 99 Oxygen Delivery Method Nasal Cannula Room Air Oxygen Flow Rate (L/min) 5 Weight Weight: 82.5 kg Body Mass Index (BMI) 30.2 Physical Exam Narrative Physical exam: General: Patient in reverse Trendelenburg position and vomiting Head: Normocephalic, atraumatic, no tenderness Eyes: Vision is grossly intact. EOMI ENT, no trauma, moist mucous membranes, no rhinorrhea Neck: Nontender, No thyromegaly. CVS: Bradycardia; irregularly irregular rate and rhythm. Respiratory : clear to auscultation bilaterally, chest wall nontender Abdomen: Soft, nontender, nondistended, normal bowel sounds, no masses : Deferred Back: Nontender, no CVA tenderness, no midline spinal tenderness, deformities, step-offs Extremities: Nontender full range of motion, no trauma Skin: Normal color, no trauma, abrasions Neuro: Alert, oriented, cranial nerves II through XII grossly intact. Psychiatry: Normal mood. Normal affect. Not depressed. Not anxious. Results Lab / Micro Data Result Diagrams: 03/20/23 05:05 03/20/23 05:05 Labs: Laboratory Results - last 24 hr 03/19/23 18:42: WBC 9.4, RBC 3.95 L, Hgb 11.8 L, Hct 37.4, MCV 94.7, MCH 29.9, MCHC 31.6 L, RDW Std Deviation 53.3 H, RDW Coeff of [place] 15.5 H, Plt Count 230, MPV 10.1, Immature Gran % (Auto) 0.500, Neut % (Auto) 61.1, Lymph % (Auto) 27.8, [place] % (Auto) 8.9, Eos % (Auto) 1.1, Baso % (Auto) 0.6, Absolute Neuts (auto) 5.7, Absolute Lymphs (auto) 2.60, Nucleated RBC % 0 03/19/23 18:42: Sodium 137, Potassium 5.2 H, Chloride 109 H, Carbon Dioxide 18.0 L, Anion Gap 10, BUN 40 H, Creatinine 2.02 H, Estim Creat Clear Calc 21.99, Est GFR (MDRD) Af Amer 31 L, Est GFR (MDRD) Non-Af 26 L, BUN/Creatinine Ratio 19.8, Glucose 205 H, Calcium 9.3, Troponin I High Sens 20 03/19/23 18:44: POC Glucose 185 H Assessment & Plan Assessment/Plan (1) Bradycardia: (2) Syncope: PLAN: Plan Symptomatic bradycardia/syncope Syncope EKG independently reviewed A-fib with bradycardia with a QTc prolongation. Home beta-rajinder and calcium channel rajinder held. Also all home antihypertensives held. Lasix held. Check TSH and magnesium. Check echocardiogram. Check echocardiogram. Cardiology consult. Acute anemia Hemoglobin 11.8 on presentation. Etiology unclear. Trend CBC CKD stage IV. Trend Stable Hold home Lasix. DVT prophylaxis: SCDs ordered. Home Eliquis held at this time. Charges/Coding Visit Charges Inpatient E&M: 59750 Init Hosp L3
[2023-03-19] MEDS: proCHLORPERazine 10 MG/2 ML Vial 5 MG IV (20:47)
[2023-03-19 21:00] LABS: Reflex Troponin-HS? (from REC) Y
--- NOTE | 2023-03-19 21:15 | ECHOCS_ITS ---
Reason For Study: Syncope Procedure This was a 2D Doppler, Color Flow transthoracic echocardiogram. The study was technically difficult. Contrast injection was performed. Exam performed portable in ICU/CCU. Left Ventricle Normal size and thickness. Mild global left ventricular systolic dysfunction. The left ventricular ejection fraction is 45 %. At least stage 2 diastolic dysfunction. Right Ventricle Normal right ventricle. Atria The left atrium is severely enlarged. The right atrium is moderately enlarged. Mitral Valve Moderately severe (3+) eccentric mitral valve insufficiency. Tricuspid Valve Moderate (2+) tricuspid valve insufficiency. Right ventricular systolic pressure estimated to be 51 mmHg. Aortic Valve Mild diffuse aortic valve thickening. Mild-Moderate (1-2+) aortic valve insufficiency. Pulmonic Valve The pulmonic valve is not well visualized. Trivial pulmonic valve insufficiency. Great Vessels Mildly dilated aortic root. Pericardium/Pleural Trivial pericardial effusion. Medication Diluted definity 2ml given slow IV push to enhance endocardial definition. MMode/2D Measurements & Calculations LVIDd: 4.8 cm IVSd: 0.91 cm Ao root diam: 3.7 cm LVIDs: 4.1 cm LVPWd: 0.93 cm LA dimension: 4.8 cm RVDd: 4.1 cm FS: 15.1 % LAV(MOD-bp): 116.1 ml LVAd ap4: 33.1 cm2 LVAd ap2: 32.9 cm2 LAV(MOD-bp) Indexed: 62.1 ml/m2 LVLd ap4: 7.8 cm LVLd ap2: 7.2 cm LAV(MOD-sp2): 105.8 ml EDV(MOD-sp4): 117.2 ml EDV(MOD-sp2): 126.1 ml LAV(MOD-sp4): 117.1 ml EDV(sp4-el): 119.9 ml EDV(sp2-el): 127.0 ml LVAs ap4: 23.6 cm2 LVAs ap2: 22.7 cm2 LVLs ap4: 6.7 cm LVLs ap2: 6.4 cm ESV(MOD-sp4): 68.6 ml ESV(MOD-sp2): 69.5 ml ESV(sp4-el): 71.0 ml ESV(sp2-el): 68.6 ml EF(MOD-sp4): 41.4 % EF(MOD-sp2): 44.9 % EF(sp4-el): 40.8 % SV(MOD-sp4): 48.5 ml SV(MOD-sp2): 56.6 ml SV(sp4-el): 48.9 ml LA A4 area: 31.4 cm2 RA A4 area: 20.5 cm2 TAPSE: 1.7 cm Doppler Measurements & Calculations MV E max lit: 181.0 cm/sec Lat Peak E' Lit: 8.9 cm/sec Med Peak E' Lit: 6.4 cm/sec E/E' lat: 20.3 E/E' med: 28.4 MV V2 max: 208.2 cm/sec MV P1/2t max lit: 209.2 cm/sec Ao V2 max: 190.9 cm/sec MV max P.4 mmHg MV P1/2t: 84.1 msec Ao max P.9 mmHg MV V2 mean: 96.2 cm/sec MV dec slope: 728.3 cm/sec2 Ao V2 mean: 133.2 cm/sec MV mean P.8 mmHg Ao mean P.2 mmHg MV V2 VTI: 54.2 cm MVA(P1/2t): 2.6 cm2 Ao V2 VTI: 36.2 cm AV (velocity ratio): 0.68 AI max lit: 448.4 cm/sec LV V1 max: 115.4 cm/sec MR max lit: 576.5 cm/sec AI max P.5 mmHg LV V1 max P.4 mmHg MR max P.9 mmHg AI dec slope: 234.9 cm/sec2 LV V1 mean P.2 mmHg MR mean lit: 447.5 cm/sec AI P1/2t: 559.2 msec LV V1 mean: 85.2 cm/sec MR mean P.4 mmHg LV V1 VTI: 24.6 cm MR VTI: 189.6 cm PA V2 max: 102.6 cm/sec TR max lit: 340.4 cm/sec PA V2 mean: 67.6 cm/sec TR max P.3 mmHg ECHO/Echo Complete W/ Contrast Interpretation Summary Mild global left ventricular systolic dysfunction. The left ventricular ejection fraction is 45 %. At least stage 2 diastolic dysfunction. The left atrium is severely enlarged. The right atrium is moderately enlarged. Moderately severe (3+) eccentric mitral valve insufficiency. Moderate (2+) tricuspid valve insufficiency. Right ventricular systolic pressure estimated to be 51 mmHg. Mild-Moderate (1-2+) aortic valve insufficiency. Mildly dilated aortic root. Ordering Physician: Ricco Rod Performed By: Scotty Love RCS
[2023-03-19 22:18] LABS: Troponin-I HS 27 pg/mL (3.0-54.0)
[2023-03-19] MEDS: APIXABAN 5 MG TABLET PO (23:31)
[2023-03-19] MEDS: Insulin Lispro 100 UNIT/ML INSULN.PEN SC (23:32)
[2023-03-19] MEDS: Atorvastatin Calcium 20 MG Tablet PO (23:32)
[2023-03-19 23:52] LABS: Bedside Glucose 197 mg/dL (74-106)
[2023-03-20] VITALS (34 sets, daily range): BP systolic 79–148; BP diastolic 50–99; PULSE 68–102; RESP 14–29; TEMP 36.4–37.1; O2SAT 84–99; BMI 28.3
[2023-03-20] MEDS: Levothyroxine 25 MCG TABLET PO (05:07)
[2023-03-20 05:13] LABS: Absolute Lymphocyte Count 1.33 X10^3/uL (0.83-4.51); Absolute Neutrophil Count 9.3 X10^3/uL (2.0-7.7); Basophil# 0.04 X10^3/uL; Basophil% 0.3 % (0-1); Hematocrit 34.5 % (37-47); Hemoglobin 11.3 g/dL (12.0-15.0); Lymphocyte # 1.33 X10^3/ul (0.83-4.51); Lymphocyte % 10.9 % (19-41); Mean Corp Hgb Conc 32.8 g/dL (32-36); Mean Corpuscular Hgb 30.3 pg (27.0-32.0); Mean Corpuscular Volume 92.5 fL (81-99); Mean Platelet Vol. 9.5 fl (6.2-12.0); Monocyte# 1.48 X10^3/uL; Monocyte% 12.2 % (0-10); NRBC Flagged by Analyzer 0 % (0-5); Neutrophil # 9.26 X10^3/uL (2.7-7.7); Neutrophil % 76.1 % (47-70); Platelet Count 214 K/mm3 (150-450); RBC Distribution Width SD 50.9 fl (35.1-43.9); Red Blood Count 3.73 M/mm3 (4.2-5.4); White Blood Count 12.2 K/mm3 (4.4-11.0)
[2023-03-20 05:34] LABS: Phosphorus 3.7 mg/dL (2.5-4.9)
[2023-03-20 05:40] LABS: Anion Gap 10 (5-15); BUN 42 mg/dL (7-18); BUN/Creat Ratio 22.5 RATIO (10-20); Calcium,Total 9.2 mg/dL (8.5-10.1); Chloride 113 mmol/L (98-107); Creatinine, Serum 1.87 mg/dL (0.55-1.02); EST Glomerular Filtration Rate 28 mL/min (>60); Est Glom Filt Rate - Afr Amer 34 mL/min (>60); Estimated Creatinine Clearance 24.71 ml/min; Glucose 180 mg/dL (74-106); Magnesium 1.7 mg/dL (1.6-2.6); Potassium 4.7 mmol/L (3.5-5.1); Sodium Level 141 mmol/L (136-145); Thyroid Stim Hormone (TSH) 1.17 uIU/mL (0.358-3.74)
[2023-03-20] MEDS: Insulin Lispro 100 UNIT/ML INSULN.PEN SC ×2 (06:07→16:09)
--- NOTE | 2023-03-20 07:15 | PN.HOSP_ITS ---
Reason for Visit Reason for Visit: Syncope Subjective Subjective Mrs. Ayala is a 72-year-old white female who presented to emergency department at [facility] on 03/19/2023 via private vehicle due to syncopal episodes that were occurring at home. She had a syncopal episode in the triage area and her heart rate was noted to be in the 20s at that time. She was immediately brought back to a room and placed in Trendelenburg position with a noted blood pressure of 66 systolic and a heart rate in the low 30s. Family reported that she was complaining of some chest pressure and not feeling well about 15 minutes before they arrived. Once the patient was more awake she indicated she not been feeling well all day and was having some intermittent chest pressure. The patient does have a noted history of atrial fibrillation and had been living in [place] up until recently (4 days ago). She was noted to be on diltiazem and metoprolol for her history of atrial fibrillation. She takes apixaban and has not missed any doses. Pacer pads were placed immediately and she was given atropine with no response in her heart rate. IV fluids were given and she was given half amp of epinephrine with improvement in her heart rate and blood pressure. Heart rate did drop back down once epinephrine started to wear off with heart rates in the 40s and hypotension as well and she was initiated on epinephrine drip. The case was discussed with the on-call glost placer for the ER and they recommended transitioning her from epinephrine to dopamine. She was given calcium gluconate as well. Her rate limiting medications were held on admission and she was admitted to the ICU. At this time cardiology consult and echocardiogram are pending. Objective Data Objective Data Vital Signs: Vital Signs Temp Pulse Resp BP Pulse Ox O2 Del Method O2 Flow Rate 98.8 F 93 20 H 115/99 H 94 Nasal Cannula 4 03/20/23 04:00 03/20/23 07:00 03/20/23 05:00 03/20/23 05:00 03/20/23 05:00 03/20/23 05:00 03/20/23 05:00 Oxygen Flow Rate (L/min) 4 Oxygen Delivery Method Nasal Cannula Weight: 80 kg Body Mass Index (BMI) 28.3 Intake & Output: Intake and Output for Last 24 Hours 03/18/23 03/19/23 03/20/23 23:59 23:59 23:59 Intake Total 411.86 / 427.36 104.51 / 104.51 Balance 411.86 / 427.36 104.51 / 104.51 Lab / Micro Data Result Diagrams: 03/20/23 05:05 03/20/23 05:05 Labs: Laboratory Results - last 24 hr 03/19/23 18:42: WBC 9.4, RBC 3.95 L, Hgb 11.8 L, Hct 37.4, MCV 94.7, MCH 29.9, MCHC 31.6 L, RDW Std Deviation 53.3 H, RDW Coeff of [place] 15.5 H, Plt Count 230, MPV 10.1, Immature Gran % (Auto) 0.500, Neut % (Auto) 61.1, Lymph % (Auto) 27.8, [place] % (Auto) 8.9, Eos % (Auto) 1.1, Baso % (Auto) 0.6, Absolute Neuts (auto) 5.7, Absolute Lymphs (auto) 2.60, Nucleated RBC % 0 03/19/23 18:42: Sodium 137, Potassium 5.2 H, Chloride 109 H, Carbon Dioxide 18.0 L, Anion Gap 10, BUN 40 H, Creatinine 2.02 H, Estim Creat Clear Calc 21.99, Est GFR (MDRD) Af Amer 31 L, Est GFR (MDRD) Non-Af 26 L, BUN/Creatinine Ratio 19.8, Glucose 205 H, Calcium 9.3, Troponin I High Sens 20 03/19/23 18:44: POC Glucose 185 H 03/19/23 21:30: Troponin I High Sens 27 03/19/23 23:26: POC Glucose 197 H 03/20/23 05:05: WBC 12.2 H, RBC 3.73 L, Hgb 11.3 L, Hct 34.5 L, MCV 92.5, MCH 30.3, MCHC 32.8, RDW Std Deviation 50.9 H, RDW Coeff of [place] 15.0 H, Plt Count 2 14, MPV 9.5, Immature Gran % (Auto) 0.500, Neut % (Auto) 76.1 H, Lymph % (Auto) 10.9 L, [place] % (Auto) 12.2 H, Eos % (Auto) 0.0, Baso % (Auto) 0.3, Absolute Neuts (auto) 9.3 H, Absolute Lymphs (auto) 1.33, Nucleated RBC % 0 03/20/23 05:05: Sodium 141, Potassium 4.7, Chloride 113 H, Carbon Dioxide 18.0 L , Anion Gap 10, BUN 42 H, Creatinine 1.87 H, Estim Creat Clear Calc 24.71, Est GFR (MDRD) Af Amer 34 L, Est GFR (MDRD) Non-Af 28 L, BUN/Creatinine Ratio 22.5 H , Glucose 180 H, Calcium 9.2, Magnesium 1.7, TSH 1.17 03/20/23 05:05: Phosphorus 3.7 Radiography Diagnostic Testing: Radiology Impression Chest X-Ray 03/19/23 20:05 IMPRESSION: 1. No radiographic evidence of acute cardiopulmonary disease. Electronically Signed: Gennaro Donaldson DO at 20:33 EDT , Physical Exam Const alert, oriented x3, no apparent distress and well nourished Constitutional Narrative: Older white female lying in bed, magnetic testing technician at bedside finishing echocardiogram, patient appears comfortable at this time, nontoxic HEENT head/scalp atraumatic HEENT Narrative: Dentition is fair for age, Mallampati is 2, no thrush, mucous membranes are slightly dry Resp normal respiratory effort, no retractions, no use of accessory muscles and clear to auscultation bilaterally Auscultation: Negative for rales, rhonchi or wheezes Cardio regular rate, S1 normal heart sound, S2 normal heart sound, no murmurs, no rub, no gallops and no clicks Cardio Narrative: Irregularly irregular rhythm GI normal to inspection, nondistended, normoactive bowel sounds and soft to palpation Extremity no clubbing, cyanosis or edema Extremity Narrative: Pedal pulses Neuro oriented x3, moves all extremities and no focal motor deficits Speech: speech normal Psych Psych Narrative: Affect is slightly flat however eye contact is good and mood seems to be appr opriate given situation Assessment & Plan Assessment/Plan (1) Bradycardia: (2) Syncope: (3) Elevated serum creatinine: (4) Hypoxia: PLAN: Plan Symptomatic bradycardia -Several syncopal episodes prior to admission -Heart rate in the 20s at lowest -Now on dopamine drip and heart rates are 70-90--> slowly being weaned to keep heart rate greater than 70 per cardiology instructions -No new medications -Continue to hold Cardizem and metoprolol -Echocardiogram pending -Last echocardiogram from 04/11/2019 showed a normal EF at 53% and diastolic dysfunction cannot be estimated due to arrhythmia with atrial fibrillation and moderate mitral valve calcification with stenosis at 1+ insufficiency, pulmonary artery systolic pressures were 26 mmHg -TSH is within normal limits -Cardiology consult pending Hypoxia -Patient is currently on 4 L nasal cannula with oxygen saturations anywhere from 94 to 96% -Etiology is unclear at this time -Echocardiogram is pending -Wean oxygen as able -Chest x-ray is unremarkable Elevated serum creatinine on CKD -Baseline is unclear -Baseline serum creatinine from 2019 appears to be between 1.2 and 1.4 -Creatinine admission was 2.02 with current creatinine at 1.87 -We will follow trend and see if we can establish her current baseline -Avoid nephrotoxins as able -Continue to monitor Persistent atrial fibrillation -Came in with bradycardia -Could be sick sinus syndrome versus medication effect -Continue to monitor on telemetry -Hold rate controlling medications given bradycardia -Continue Eliquis Hypothyroidism -TSH is within normal limits -Continue levothyroxine DM-2 -Continue Lantus 8 units -Monitor closely as patient is currently n.p.o. but a.m. fasting blood sugars 180 -SSI every 6 -Accu-Cheks as ordered -We will start diet if it does not appear that any intervention will be performed today Hyperlipidemia -Continue statin Hypertension -Hypotensive with her bradycardia -Pressures are now better with improved heart rate however we will continue to hold all antihypertensives History of mitral valve stenosis with insufficiency -Echocardiogram is pending Secondary pulmonary hypertension -Suspect who group 2 or 3 -Diuresis currently on hold -We will restart when appropriate -Last echo done in 2019 showed pulmonary artery systolic pressures at 26 mmHg History of tobacco abuse -Remote DVT prophylaxis -Continue Eliquis CODE STATUS -full code Charges/Coding Visit Charges Inpatient E&M: 40690 Subs Hosp L2
[2023-03-20] MEDS: TITRATION PARAMETER CHANGE 1 EACH IV (08:30)
--- NOTE | 2023-03-20 09:01 | PCM.CONS.C ---
Assessment & Plan Assessment/Plan (1) Syncope: PLAN: Secondary to symptomatic bradycardia and hypotension. Likely iatrogenic. Stop calcium channel rajinder. Hold beta-blockers. (2) Bradycardia: PLAN: Underlying rhythm atrial fibrillation. Symptomatic bradycardia with syncope. Stop calcium channel blockers. Hold beta-blockers. Patient's heart rate better this morning. Try to wean off dopamine. If needed, will reintroduce beta-blockers and/or calcium channel blockers at a lower dose and see the response. (3) Chronic kidney disease (CKD): PLAN: As per internal medicine. (4) Essential (primary) hypertension: PLAN: Monitor. (5) Persistent atrial fibrillation: PLAN: On Eliquis. See #1 and 2 above. HPI Consult Data Date of Consult: 03/20/23 HPI Narrative Reason for Consultation: Syncope HPI Narrative: Patient has history of diabetes mellitus, dyslipidemia, hypertension and permanent atrial fibrillation. She presented to the emergency room with complaints of multiple syncopal episodes at home. She complained of lightheadedness nausea vomiting and weakness with these syncopal episodes. No chest pain. In the emergency room triage, she had another syncopal episodes. Her heart rate was noted to be in the 20s and blood pressure in the 60s. She was resuscitated with epinephrine. She became asymptomatic after her heart rate came up and blood pressure improved. Please note that the patient was on diltiazem extended release 300 mg once daily and metoprolol 150 mg twice daily at home. [facility] Medical History (Updated 03/20/23 @ 09:[address] Sharon Wynn MD) Chronic diastolic (congestive) heart failure Chronic kidney disease (CKD) Essential (primary) hypertension Hyperlipidemia Incomplete left bundle branch block (LBBB) Nonrheumatic mitral valve stenosis with insufficiency Nonrheumatic tricuspid (valve) insufficiency Obesity Persistent atrial fibrillation Secondary pulmonary arterial hypertension Type 2 diabetes mellitus Home Medications insulin detemir U-100 100 unit/mL (3 mL) subcutaneous pen 8 unit subcut DAILY 03/26/18 [History Last Taken Unknown] levothyroxine 25 mcg tablet 25 mcg PO QDAY 03/26/18 [History Last Taken Unknown] metformin 500 mg tablet 500 mg PO BID 03/26/18 [History Last Taken Unknown] apixaban 5 mg tablet (Eliquis) 5 mg PO BID #60 tabs 03/09/20 [Rx Last Taken Unknown] diltiazem HCl 300 mg capsule,extended release 24 hr 300 mg PO QDAY #90 caps 04/13/20 [Rx Last Taken Unknown] cyanocobalamin (vitamin B-12) 1,000 mcg tablet (Vitamin B-12) 1,000 mcg PO DAILY 03/19/23 [History Last Taken Unknown] furosemide 20 mg tablet 20 mg PO BID 03/19/23 [History Last Taken Unknown] metoprolol tartrate 100 mg tablet 150 mg PO BID 03/19/23 [History Last Taken Unknown] olmesartan 20 mg tablet 10 mg PO DAILY 03/19/23 [History Last Taken Unknown] rosuvastatin 10 mg tablet 10 mg PO DAILY 03/19/23 [History Last Taken Unknown] Allergy/AdvReac Type Severity Reaction Status Date / Time MARCO Inhibitors AdvReac Cough Verified 03/19/23 18:45 Family History Mother CAD (coronary artery disease) Brother , Age 65 [place] CAD (coronary artery disease) Atrial fibrillation Myocardial infarction Father , in MVA No problems noted. Surgical History History of cholecystectomy S/P ALY (total abdominal hysterectomy) Social History Smoking Status: Former smoker how long ago did patient quit smoking: greater than 20 years alcohol intake: never Physical Exam Narrative Comfortable. No apparent distress. Heart sounds 1 and 2 noted. Irregularly irregular. Chest clear to auscultation bilaterally. Alert oriented x3. No ankle edema noted. Risk Stratification Risk Stratification Applicable: No Objective Data Vital Signs: Vital Signs Temp Pulse Resp BP Pulse Ox O2 Del Method O2 Flow Rate 98.8 F 85 20 H 120/63 94 Nasal Cannula 4 03/20/23 04:00 03/20/23 08:35 03/20/23 05:00 03/20/23 08:35 03/20/23 05:00 03/20/23 05:00 03/20/23 05:00 Oxygen Flow Rate (L/min) 4 Oxygen Delivery Method Nasal Cannula Weight: 176 lb 5.917 oz Body Mass Index (BMI) 28.3 Intake & Output: Intake and Output for Last 24 Hours 03/18/23 03/19/2323 23:59 23:59 23:59 Intake Total 411.86 / 427.36 116.70 / 116.70 Balance 411.86 / 427.36 116.70 / 116.70 Lab / Micro Data Result Diagrams: 03/20/23 05:05 03/20/23 05:05 Labs: Laboratory Results - last 24 hr 03/19/23 18:42: WBC 9.4, RBC 3.95 L, Hgb 11.8 L, Hct 37.4, MCV 94.7, MCH 29.9, MCHC 31.6 L, RDW Std Deviation 53.3 H, RDW Coeff of [place] 15.5 H, Plt Count 230, MPV 10.1, Immature Gran % (Auto) 0.500, Neut % (Auto) 61.1, Lymph % (Auto) 27.8, [place] % (Auto) 8.9, Eos % (Auto) 1.1, Baso % (Auto) 0.6, Absolute Neuts (auto) 5.7, Absolute Lymphs (auto) 2.60, Nucleated RBC % 0 03/19/23 18:42: Sodium 137, Potassium 5.2 H, Chloride 109 H, Carbon Dioxide 18.0 L, Anion Gap 10, BUN 40 H, Creatinine 2.02 H, Estim Creat Clear Calc 21.99, Est GFR (MDRD) Af Amer 31 L, Est GFR (MDRD) Non-Af 26 L, BUN/Creatinine Ratio 19.8, Glucose 205 H, Calcium 9.3, Troponin I High Sens 20 03/19/23 18:44: POC Glucose 185 H 03/19/23 21:30: Troponin I High Sens 27 03/19/23 23:26: POC Glucose 197 H 03/20/23 05:05: WBC 12.2 H, RBC 3.73 L, Hgb 11.3 L, Hct 34.5 L, MCV 92.5, MCH 30.3, MCHC 32.8, RDW Std Deviation 50.9 H, RDW Coeff of [place] 15.0 H, Plt Count 214, MPV 9.5, Immature Gran % (Auto) 0.500, Neut % (Auto) 76.1 H, Lymph % (Auto) 10.9 L, [place] % (Auto) 12.2 H, Eos % (Auto) 0.0, Baso % (Auto) 0.3, Absolute Neuts (auto) 9.3 H, Absolute Lymphs (auto) 1.33, Nucleated RBC % 0 03/20/23 05:05: Sodium 141, Potassium 4.7, Chloride 113 H, Carbon Dioxide 18.0 L, Anion Gap 10, BUN 42 H, Creatinine 1.87 H, Estim Creat Clear Calc 24.71, Est GFR (MDRD) Af Amer 34 L, Est GFR (MDRD) Non-Af 28 L, BUN/Creatinine Ratio 22.5 H, Glucose 180 H, Calcium 9.2, Magnesium 1.7, TSH 1.17 03/20/23 05:05: Phosphorus 3.7 Cardiology Labs/Tests 03/19/23 18:42: WBC 9.4, RBC 3.95 L, Hgb 11.8 L, Hct 37.4, MCV 94.7, MCH 29.9, MCHC 31.6 L, Plt Count 230, MPV 10.1, Immature Gran % (Auto) 0.500, Neut % (Auto) 61.1, Lymph % (Auto) 27.8, [place] % (Auto) 8.9, Eos % (Auto) 1.1, Baso % (Auto) 0.6, Absolute Neuts (auto) 5.7, Nucleated RBC % 0 03/19/23 18:42: Sodium 137, Potassium 5.2 H, Chloride 109 H, Carbon Dioxide 18.0 L, Anion Gap 10, BUN 40 H, Creatinine 2.02 H, Est GFR (MDRD) Af Amer 31 L, Est GFR (MDRD) Non-Af 26 L, BUN/Creatinine Ratio 19.8, Glucose 205 H, Calcium 9.3 03/20/23 05:05: WBC 12.2 H, RBC 3.73 L, Hgb 11.3 L, Hct 34.5 L, MCV 92.5, MCH 30.3, MCHC 32.8, Plt Count 214, MPV 9.5, Immature Gran % (Auto) 0.500, Neut % (Auto) 76.1 H, Lymph % (Auto) 10.9 L, [place] % (Auto) 12.2 H, Eos % (Auto) 0.0, Baso % (Auto) 0.3, Absolute Neuts (auto) 9.3 H, Nucleated RBC % 0 03/20/23 05:05: Sodium 141, Potassium 4.7, Chloride 113 H, Carbon Dioxide 18.0 L, Anion Gap 10, BUN 42 H, Creatinine 1.87 H, Est GFR (MDRD) Af Amer 34 L, Est GFR (MDRD) Non-Af 28 L, BUN/Creatinine Ratio 22.5 H, Glucose 180 H, Calcium 9.2, Magnesium 1.7 03/20/23 05:05: Phosphorus 3.7 Rhythm: EKG: ECHO: Stress Test: Cardiac Cath: PCI: CT Surgery: Holter monitor: EPS: PPM: CXR: Chest CT Scan: Radiography Diagnostic Testing: Radiology Impression Chest X-Ray 03/19/23 20:05 IMPRESSION: 1. No radiographic evidence of acute cardiopulmonary disease. Electronically Signed: Gennaro Donaldson DO at 20:33 EDT ,
[2023-03-20] MEDS: 0.9% Saline Lock 10 ML Syringe IV (09:42)
[2023-03-20] MEDS: APIXABAN 5 MG TABLET PO ×2 (09:43→22:13)
[2023-03-20] MEDS: Cyanocobalamin 500 MCG Tablet 1000 MCG PO (09:44)
[2023-03-20] MEDS: Insulin Glargine-YFGN 100 UNIT/ML Pen 8 UNIT SC (10:47)
[2023-03-20 12:09] LABS: Bedside Glucose 123 mg/dL (74-106)
--- NOTE | 2023-03-20 13:58 | CASEMGMT ---
Addendum entered by Lizett Morin 03/20/23 16:04: Provided pt dtr with a verbal local list of DME companies, she chose [employer] if needed for oxygen, AD at dc. Original Note: REAL CHOI Assessment: Face to Face with pt for initial transition planning/care coordination assessment. REAL CHOI introduced self and role at [facility], pt voices understanding and consents to assessment. Pt with family members present at bedside. Pt agreeable to assessment with family present. Pt on oxygen in no distress. Pt answered all assessment questions. Pt recently moved from [place] 4 days ago with dtr.Pt moved back as well but was life flighted to [facility] for brain bleed. Unclear if pt did not know assessment questions d/t moving back from the area or confusion. Once finished, pt family member came into miguel and states pt is having periods of confusion. She asked for REAL CHOI to call pt dtr Elham. At that time Elham called her phone and REAL CHOI completed assessment with pt dtr. Care providers, pharmacy, and demographics verified/updated. Admitting Dx:symptomatic bradycardia with syncope PCP:Pt to establish at [facility]- dtr working on this Specialists:FELISA Wynn to follow Preferred Pharmacy: [facility] Insurance: [facility], [facility] [place] Prescription Benefit: yes LNOK: Corazon Esquivel, dtr; Callum Ayala, Living Arrangements: Pt lives with dtr, once out of hospital and 10 year old grandson in a two story home with 1 step to enter. Pt living arrangements are on the main level. Transportation: Pt drives self and denies concerns with transportation. Pt dtr is able to transport pt if needed. DME/HHC/SNF: Pt did not use any AD prior. Per dtr, pt will need DME if recommended. Pt has no hx of HHC or SNF stays. Pt states no concerns with going home at time of dc. 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 Pt dtr states she is trying to handle pt and her father at the same time and does not know how to manage this. She is aware that therapy has not yet worked with pt. She states she would be open to any recommendations. Order received per hospitalist. Updated SW on pt recent move and changing life conditions. Pt and dtr states no further concerns/needs. CM to follow. Advised pt to ask CM if any further question/concerns/needs arise, voices understanding. Pt Goal: Home with dtr Plan: TBD pending therapy and course of hospitalization
[2023-03-20 16:30] LABS: Bedside Glucose 152 mg/dL (74-106)
--- NOTE | 2023-03-20 17:38 | NURSING ---
03/20/23@1739- REPORT CALLED TO REAL RAHMAN ON PCU.
[2023-03-20] MEDS: Atorvastatin Calcium 20 MG Tablet PO (22:12)
[2023-03-20] MEDS: Haloperidol Lactate 5 MG/ML Vial 2 MG IM (23:30)
[2023-03-21] VITALS (21 sets, daily range): BP systolic 120–158; BP diastolic 72–120; PULSE 89–139; RESP 14–27; TEMP 36.4–36.7; O2SAT 93–100; BMI 28.6
[2023-03-21] MEDS: DiphenhydrAMINE 25 MG Capsule PO (04:39)
[2023-03-21] MEDS: Amiodarone 360 MG in Dextrose 5% Viaflo Bag 192.8 ML 33.3 MG CONT INF (06:44)
[2023-03-21 06:45] LABS: Absolute Lymphocyte Count 1.43 X10^3/uL (0.83-4.51); Absolute Neutrophil Count 7.7 X10^3/uL (2.0-7.7); Basophil# 0.03 X10^3/uL; Basophil% 0.3 % (0-1); Eosinophil# 0.01 X10^3/uL; Eosinophils% 0.1 % (0-5); Hematocrit 34.3 % (37-47); Hemoglobin 11.3 g/dL (12.0-15.0); Lymphocyte # 1.43 X10^3/ul (0.83-4.51); Lymphocyte % 14.1 % (19-41); Mean Corp Hgb Conc 32.9 g/dL (32-36); Mean Corpuscular Hgb 29.9 pg (27.0-32.0); Mean Corpuscular Volume 90.7 fL (81-99); Mean Platelet Vol. 9.7 fl (6.2-12.0); Monocyte# 0.93 X10^3/uL; Monocyte% 9.1 % (0-10); NRBC Flagged by Analyzer 0 % (0-5); Neutrophil # 7.71 X10^3/uL (2.7-7.7); Neutrophil % 75.8 % (47-70); Platelet Count 210 K/mm3 (150-450); RBC Distribution Width CV 15.1 % (11.6-14.6); RBC Distribution Width SD 49.8 fl (35.1-43.9); Red Blood Count 3.78 M/mm3 (4.2-5.4); White Blood Count 10.2 K/mm3 (4.4-11.0)
[2023-03-21] MEDS: Levothyroxine 25 MCG TABLET PO (06:51)
[2023-03-21] MEDS: Insulin Lispro 100 UNIT/ML INSULN.PEN SC ×2 (06:57→11:06)
[2023-03-21 07:12] LABS: Anion Gap 12 (5-15); BUN 33 mg/dL (7-18); BUN/Creat Ratio 26.2 RATIO (10-20); Calcium,Total 9.9 mg/dL (8.5-10.1); Chloride 111 mmol/L (98-107); Creatinine, Serum 1.26 mg/dL (0.55-1.02); EST Glomerular Filtration Rate 44 mL/min (>60); Est Glom Filt Rate - Afr Amer 53 mL/min (>60); Estimated Creatinine Clearance 36.67 ml/min; Glucose 171 mg/dL (74-106); Potassium 3.7 mmol/L (3.5-5.1); Sodium Level 140 mmol/L (136-145)
[2023-03-21 07:31] LABS: Bedside Glucose 178 mg/dL (74-106)
[2023-03-21] MEDS: APIXABAN 5 MG TABLET PO ×2 (08:40→20:47)
[2023-03-21] MEDS: Cyanocobalamin 500 MCG Tablet 1000 MCG PO (08:40)
[2023-03-21] MEDS: Furosemide 20 MG Tablet PO (08:41)
[2023-03-21] MEDS: Insulin Glargine-YFGN 100 UNIT/ML Pen 8 UNIT SC (08:41)
[2023-03-21] MEDS: Losartan Potassium 50 MG Tablet PO (08:41)
--- NOTE | 2023-03-21 10:07 | PN.CARD_ITS ---
Subjective Subjective Denies any complaints. Overnight she was started on amiodarone for rapid ventricular response with her atrial fibrillation. Objective Data Vital Signs: Vital Signs Temp Pulse Resp BP Pulse Ox O2 Del Method O2 Flow Rate 98 F 123 H 26 H 123/78 H 96 Room Air 2 03/21/23 06:58 03/21/23 09:00 03/21/23 09:00 03/21/23 09:00 03/21/23 09:00 03/21/23 09:00 03/21/23 07:08 FiO2 94 03/21/23 07:08 Oxygen Flow Rate (L/min) 2 Oxygen Delivery Method Room Air Weight: 177 lb 7.554 oz Body Mass Index (BMI) 28.6 Intake & Output: Intake and Output for Last 24 Hours 03/19/23 03/20/23 03/21/23 23:59 23:59 23:59 Intake Total 411.86 / 427.36 549.95 / 549.95 178.50 / 178.50 Balance 411.86 / 427.36 549.95 / 549.95 178.50 / 178.50 Lab / Micro Data Result Diagrams: 03/21/23 05:49 03/21/23 05:49 Labs: Laboratory Results - last 24 hr 03/20/23 10:43: POC Glucose 123 H 03/20/23 16:08: POC Glucose 152 H 03/21/23 05:49: WBC 10.2, RBC 3.78 L, Hgb 11.3 L, Hct 34.3 L, MCV 90.7, MCH 29.9, MCHC 32.9, RDW Std Deviation 49.8 H, RDW Coeff of [place] 15.1 H, Plt Count 210, MPV 9.7, Immature Gran % (Auto) 0.600, Neut % (Auto) 75.8 H, Lymph % (Auto) 14.1 L, [place] % (Auto) 9.1, Eos % (Auto) 0.1, Baso % (Auto) 0.3, Absolute Neuts (auto) 7.7, Absolute Lymphs (auto) 1.43, Nucleated RBC % 0 03/21/23 05:49: Sodium 140, Potassium 3.7, Chloride 111 H, Carbon Dioxide 17.0 L , Anion Gap 12, BUN 33 H, Creatinine 1.26 H, Estim Creat Clear Calc 36.67, Est GFR (MDRD) Af Amer 53 L, Est GFR (MDRD) Non-Af 44 L, BUN/Creatinine Ratio 26.2 H , Glucose 171 H, Calcium 9.9 03/21/23 06:57: POC Glucose 178 H Cardiology Labs/Tests 03/21/23 05:49: WBC 10.2, RBC 3.78 L, Hgb 11.3 L, Hct 34.3 L, MCV 90.7, MCH 29.9, MCHC 32.9, Plt Count 210, MPV 9.7, Immature Gran % (Auto) 0.600, Neut % (Auto) 75.8 H, Lymph % (Auto) 14.1 L, [place] % (Auto) 9.1, Eos % (Auto) 0.1, Baso % (Auto) 0.3, Absolute Neuts (auto) 7.7, Nucleated RBC % 0 03/21/23 05:49: Sodium 140, Potassium 3.7, Chloride 111 H, Carbon Dioxide 17.0 L , Anion Gap 12, BUN 33 H, Creatinine 1.26 H, Est GFR (MDRD) Af Amer 53 L, Est GFR (MDRD) Non-Af 44 L, BUN/Creatinine Ratio 26.2 H, Glucose 171 H, Calcium 9.9 Rhythm: EKG: ECHO: Stress Test: Cardiac Cath: PCI: CT Surgery: Holter monitor: EPS: PPM: CXR: Chest CT Scan: Radiography Diagnostic Testing: Radiology Impression Echocardiogram 03/19/23 21:15 Interpretation Summary Mild global left ventricular systolic dysfunction. The left ventricular ejection fraction is 45 %. At least stage 2 diastolic dysfunction. The left atrium is severely enlarged. The right atrium is moderately enlarged. Moderately severe (3+) eccentric mitral valve insufficiency. Moderate (2+) tricuspid valve insufficiency. Right ventricular systolic pressure estimated to be 51 mmHg. Mild-Moderate (1-2+) aortic valve insufficiency. Mildly dilated aortic root. Ordering Physician: Ricco Rod Performed By: Scotty Love RCS Physical Exam Narrative Comfortable. No apparent distress. Heart sounds 1 and 2 noted. Irregularly irregular. Chest clear to auscultation bilaterally. Alert oriented x3. No ankle edema noted. Assessment & Plan Assessment/Plan (1) Syncope: PLAN: Secondary to symptomatic bradycardia and hypotension. Likely iatrogenic. Resolved with stopping her negative chronotropic medications.. (2) Sick sinus syndrome: PLAN: Presently with rapid ventricular response with her atrial fibrillation. Will reintroduce beta-blockers at a lower dose. Stop amiodarone. Start calcium channel blockers at a low dose as well. If the patient's heart rate would not be controlled with low-dose beta-blockers and calcium channel blockers, then she will probably need a backup pacemaker because of her history of significant bradycardia with higher doses of medications. (3) Persistent atrial fibrillation: PLAN: On Eliquis. See #1 and 2 above. (4) Chronic kidney disease (CKD): PLAN: As per internal medicine. (5) Essential (primary) hypertension: PLAN: Monitor. (6) Diastolic dysfunction without heart failure: PLAN: Start on Lasix. Start on SGLT2 inhibitors.
--- NOTE | 2023-03-21 10:18 | MRI_ITS ---
HISTORY: confusion, EPISODES OF SYNCOPE, BLURRED VISION, HALLUCINATING, NAUSEA AND VOMITING. TECHNIQUE: Multiplanar and multisequence MR images of the brain were obtained before and after the intravenous administration of 15 cc Clariscan. 329 images. COMPARISON: None. FINDINGS: BRAIN PARENCHYMA: Moderate foci and small zones of increased T2 FLAIR signal in the bilateral cerebral white matter. Small chronic left parietal occipital infarct. No enhancing lesion in the brain parenchyma. No abnormal focus of restricted diffusion. No acute intracranial hemorrhage identified. CSF SPACES: Mild generalized volume loss. No significant midline shift or other mass effect.No extra-axial fluid collection. VASCULAR SYSTEM: Major intracranial flow voids are maintained. PARANASAL SINUSES AND MASTOID AIR CELLS: No significant air fluid levels. ORBITS: Symmetric contents. MRI/Brain W/WO Contrast IMPRESSION: No evidence for acute infarct or enhancing intracranial mass. Chronic involutional and white matter changes. Old left occipital infarct. Electronically Signed: Caro Molina MD at 15:59 EDT ,
[2023-03-21 10:27] LABS: Mucous, Urine 0 SEEN /hpf (<or=2+)
[2023-03-21 10:33] LABS: Color, Urine Yellow (Yellow); Glucose, Dipstick 250 mg/dl (Normal); Ketone-Dipstick 15 mg/dl (Negative); Leukocyte Esterase-Dipstick 25 /ul (Negative); Nitrite-Dipstick Positive (Negative); Occult Blood-Urine 150 /ul (Negative); Protein-Dipstick 30 mg/dl (Negative); Specific Gravity, Urine 1.015 (1.002-1.030); Urine Bilirubin Dipstick Negative (Negative); Urine Clarity Sl. Cloudy (Clear); Urine Urobilinogen Normal (Normal)
[2023-03-21 10:42] LABS: Bacteria 1+ /hpf (None Seen); Red Blood Cells-Urine 10-25 SEEN /hpf (0-5); Squamous Epithelial Cells - UA 0-5 SEEN /hpf (5-10); White Blood Cells 0-5 SEEN /hpf (0-5)
[2023-03-21] MEDS: Empagliflozin 10 MG Tablet PO (10:55)
[2023-03-21] MEDS: Metoprolol Tartrate 25 MG Tablet PO ×2 (10:55→20:48)
[2023-03-21] MEDS: dilTIAZem 30 MG Tablet PO ×2 (10:56→16:32)
[2023-03-21 11:24] LABS: Bedside Glucose 235 mg/dL (74-106)
--- NOTE | 2023-03-21 11:56 | PN.HOSP_ITS ---
Reason for Visit Reason for Visit: Syncope Subjective Subjective Patient with marked confusion and agitation overnight. Per discussion with her family who is at the bedside today she does not have any dementia or memory issues at baseline and her behaviors and memory issues while she is hospitalized are completely new. They have talked to her on the phone over the last 4 years but not seen her in person as she was living in [place]. They had no concerning phone conversations with her during that time. That would lead them to believe she was having any issues with dementia or memory loss. Patient also developed RVR overnight. She was placed on amiodarone drip and cardiology has since restarted some beta-rajinder on her. Objective Data Objective Data Vital Signs: Vital Signs Temp Pulse Resp BP Pulse Ox O2 Del Method O2 Flow Rate 98 F 139 H 24 H 158/72 H 97 Room Air 2 03/21/23 06:58 03/21/23 11:00 03/21/23 11:00 03/21/23 11:00 03/21/23 11:00 03/21/23 11:00 03/21/23 07:08 FiO2 94 03/21/23 07:08 Oxygen Flow Rate (L/min) 2 Oxygen Delivery Method Room Air Weight: 80.5 kg Body Mass Index (BMI) 28.6 Intake & Output: Intake and Output for Last 24 Hours 03/19/23 03/20/23 03/21/23 23:59 23:59 23:59 Intake Total 411.86 / 427.36 549.95 / 549.95 245.10 / 245.10 Balance 411.86 / 427.36 549.95 / 549.95 245.10 / 245.10 Lab / Micro Data Result Diagrams: 03/21/23 05:49 03/21/23 05:49 Labs: Laboratory Results - last 24 hr 03/20/23 10:43: POC Glucose 123 H 03/20/23 16:08: POC Glucose 152 H 03/21/23 05:49: WBC 10.2, RBC 3.78 L, Hgb 11.3 L, Hct 34.3 L, MCV 90.7, MCH 29.9, MCHC 32.9, RDW Std Deviation 49.8 H, RDW Coeff of [place] 15.1 H, Plt Count 210, MPV 9.7, Immature Gran % (Auto) 0.600, Neut % (Auto) 75.8 H, Lymph % (Auto) 14.1 L, [place] % (Auto) 9.1, Eos % (Auto) 0.1, Baso % (Auto) 0.3, Absolute Neuts (auto) 7.7, Absolute Lymphs (auto) 1.43, Nucleated RBC % 0 03/21/23 05:49: Sodium 140, Potassium 3.7, Chloride 111 H, Carbon Dioxide 17.0 L , Anion Gap 12, BUN 33 H, Creatinine 1.26 H, Estim Creat Clear Calc 36.67, Est GFR (MDRD) Af Amer 53 L, Est GFR (MDRD) Non-Af 44 L, BUN/Creatinine Ratio 26.2 H , Glucose 171 H, Calcium 9.9 03/21/23 06:57: POC Glucose 178 H 03/21/23 10:20: Urine Color Yellow, Urine Clarity Sl. Cloudy, Urine pH 5.0, Ur Specific [place] 1.015, Urine Protein 30 H, Urine Glucose (UA) 250 H, Urine Ketones 15 H, Urine Occult Blood 150 H, Urine Nitrite Positive H, Urine Bilirubin Negative, Urine Urobilinogen Normal, Ur Leukocyte Esterase 25 H, Urine RBC 10-25 SEEN, Urine WBC 0-5 SEEN, Ur Squamous Epith Cells 0-5 SEEN, Urine Bacteria 1+, Urine Mucus 0 SEEN 03/21/23 11:05: POC Glucose 235 H Physical Exam Const alert, no apparent distress and well nourished Constitutional Narrative: Older white female sitting up in a chair at the bedside, multiple family members including her siblings present at the bedside, patient is confused and only paul ented to self Orientation / Consciousness: confused HEENT head/scalp atraumatic and moist oral mucous membranes HEENT Narrative: Dentition is fair for age, Mallampati is 2-3, no thrush Head and Scalp: normocephalic Eyes PERRL, EOMs intact bilaterally and conjunctivae normal Eyes Narrative: No scleral icterus Neck no lymphadenopathy and supple Neck Narrative: Trachea midline, no thyroid enlargement Resp normal respiratory effort, no retractions, no use of accessory muscles and clear to auscultation bilaterally Auscultation: Negative for rales, rhonchi or wheezes Cardio regular rhythm, S1 normal heart sound, S2 normal heart sound, no murmurs, no rub, no gallops and no clicks Cardio Narrative: Irregularly irregular rhythm, tachycardic GI normal to inspection, nondistended, normoactive bowel sounds, soft to palpation and non-tender Extremity no clubbing, cyanosis or edema Extremity Narrative: Pedal pulses Skin no wounds, skin turgor normal, no jaundice, no petechiae and no mottling Skin Narrative: Ecchymosis in area of left antecubital IV consistent with bruising Neuro CN's II-XII intact bilaterally, moves all extremities and no focal motor deficits Neuro Narrative: Oriented to self only, strength is 4 approximately bilateral lower extremities 4+ proximally bilateral lower extremities and 5 distal upper and lower extremities Sensorium / Orientation: awake, alert and oriented to person Speech: speech normal Psych Psych Narrative: Patient with significant confusion, seems to be somewhat anxious, thought processes tangential Assessment & Plan Assessment/Plan (1) Bradycardia: (2) Syncope: (3) Elevated serum creatinine: (4) Hypoxia: (5) Toxic metabolic encephalopathy: (6) Diastolic dysfunction without heart failure: (7) Sick sinus syndrome: (8) Chronic kidney disease (CKD): PLAN: Plan Symptomatic bradycardia -Several syncopal episodes prior to admission -Heart rate in the 20s at lowest -Suspect iatrogenic related to her calcium channel rajinder and beta-rajinder -Off dopamine drip -Now tachycardic with A-fib with RVR -Echocardiogram shows mild global left ventricular dysfunction with an EF of 45% and at least stage II diastolic dysfunction, severe biatrial enlargement, moderate mitral valve insufficiency, right ventricular systolic pressure 51 mmHg, mild to moderate aortic valve insufficiency, mildly dilated aortic root -Last echocardiogram from 04/11/2019 showed a normal EF at 53% and diastolic dysfunction cannot be estimated due to arrhythmia with atrial fibrillation and moderate mitral valve calcification with stenosis at 1+ insufficiency, pulmonary artery systolic pressures were 26 mmHg -TSH is within normal limits -Cardiology is following Atrial fibrillation with RVR -Suspect SSS -Amiodarone bolus and drip started overnight -Plan is to discontinue amiodarone and restart low-dose beta-rajinder and calcium channel rajinder -It does appear that cardiology feels she may need a backup pacemaker with her history of significant bradycardia at higher doses of her medication -Continue Eliquis -Wait further input from cardiology Toxic/metabolic encephalopathy -Patient with significant delirium through the night -Patient does not have memory impairment at baseline as far as anyone is aware of -We will check MRI of the brain -Start Risperdal 1 mg at at bedtime -Discontinue Haldol -Would avoid antihistamines Possible UTI -Urine culture was obtained earlier this morning -Does have nitrates and leuk esterase with bacteria and small amount of white cells -Check urine culture -Start ceftriaxone 1 g every 24 hours Hypoxia -Resolved SUNNY on CKD stage IIIb -SUNNY has resolved -Baseline appears to be at 1.2-1.4 as noted previously -Creatinine admission was 2.02 with current creatinine at 1.26 -Avoid nephrotoxins as able -Continue to monitor HFpEF -Likely due to diastolic dysfunction -Restart Lasix -Jardiance initiated by cardiology today Hypothyroidism -TSH is within normal limits -Continue levothyroxine DM-2 -Continue Lantus 8 units -SSI before meals and at bedtime -Accu-Cheks as ordered -Cardiac/carb controlled diet Hyperlipidemia -Continue statin Hypertension -Restart home Lasix next-restart home ARB -Beta-rajinder/calcium channel rajinder per cardiology History of mitral valve stenosis with insufficiency -Echocardiogram is pending Secondary pulmonary hypertension -Suspect who group 2 or 3 -Start diuresis -Last echo done in 2018 showed pulmonary artery systolic pressures at 26 mmHg--> worse this echocardiogram showing a right ventricular systolic pressure 51 mmHg History of tobacco abuse -Remote DVT prophylaxis -Continue Eliquis CODE STATUS -full code Charges/Coding Visit Charges Inpatient E&M: 87764 Subs Hosp L3
[2023-03-21] MEDS: Ceftriaxone 1 GM/50 ML BAG IV (13:18)
--- NOTE | 2023-03-21 13:37 | CHAPLAIN ---
Type of Pastoral Visit _x__ Initial Visit ___ Follow-up Visit ___ On-call Visit ___ General Patient Visit ___ Spiritual Assessment ___ Family Conference ___ Bereavement ___ Rapid Response ___ Code Blue ___ Other (describe below) Pastoral Care Referral From ___ Patient _x__ Family ___ Nurse ___ Physician ___ Desktop Specialist ___ Smoke Inspector ___ Other (describe below) Sacrament/Intervention _x__ Active listening ___ Anointing ___ Congregational ___ Bereavement ___ Communion ___ Marlena exploration ___ _x__ Life review _x__ Prayer ___ Reconciliation ___ Sacrament of Sick _x__ Supportive presence ___ Wedding ___ Other (describe below) Pastoral Comments sister of patient is sitting with pt in the room; both are welcoming; sister gives information of pt's recent move back to [place] and then the spouse's brain bleed and hospitalization in [place]; pt admits that this is all overwhelming; pt has difficulty getting some words or correct information out and looks to sister for answers or to fill in the blanks; pt welcomes time to talk and receive the emotional support of another person; pt also welcomes prayer for self and spouse
[2023-03-21] MEDS: LORazepam 1 MG Tablet PO (13:49)
[2023-03-21 16:49] LABS: Bedside Glucose 138 mg/dL (74-106)
[2023-03-21] MEDS: MELATONIN 10 MG TABLET PO (20:47)
[2023-03-21] MEDS: RisperiDONE 1 MG Tablet PO (20:47)
[2023-03-21] MEDS: Atorvastatin Calcium 20 MG Tablet PO (20:50)
[2023-03-21] MEDS: 0.9% Saline Lock 10 ML Syringe IV (21:04)
[2023-03-22] VITALS (10 sets, daily range): BP systolic 101–131; BP diastolic 67–86; PULSE 86–126; RESP 16–18; TEMP 36.6–37; O2SAT 91–100; BMI 26.8
[2023-03-22] MEDS: dilTIAZem 30 MG Tablet PO (05:45)
[2023-03-22] MEDS: Levothyroxine 25 MCG TABLET PO (05:45)
[2023-03-22 07:12] LABS: Absolute Lymphocyte Count 1.06 X10^3/uL (0.83-4.51); Absolute Neutrophil Count 5.7 X10^3/uL (2.0-7.7); Basophil# 0.03 X10^3/uL; Basophil% 0.4 % (0-1); Eosinophil# 0.07 X10^3/uL; Eosinophils% 0.9 % (0-5); Hemoglobin 10.7 g/dL (12.0-15.0); Lymphocyte # 1.06 X10^3/ul (0.83-4.51); Lymphocyte % 13.8 % (19-41); Mean Corp Hgb Conc 32.4 g/dL (32-36); Mean Corpuscular Hgb 30.1 pg (27.0-32.0); Mean Corpuscular Volume 92.7 fL (81-99); Mean Platelet Vol. 9.7 fl (6.2-12.0); Monocyte# 0.77 X10^3/uL; NRBC Flagged by Analyzer 0 % (0-5); Neutrophil # 5.73 X10^3/uL (2.7-7.7); Neutrophil % 74.5 % (47-70); Platelet Count 190 K/mm3 (150-450); RBC Distribution Width CV 15.1 % (11.6-14.6); RBC Distribution Width SD 51.8 fl (35.1-43.9); Red Blood Count 3.56 M/mm3 (4.2-5.4); White Blood Count 7.7 K/mm3 (4.4-11.0)
[2023-03-22 07:19] LABS: Bedside Glucose 81 mg/dL (74-106)
[2023-03-22 08:11] LABS: Anion Gap 9 (5-15); BUN 23 mg/dL (7-18); BUN/Creat Ratio 20.5 RATIO (10-20); Calcium,Total 9.4 mg/dL (8.5-10.1); Chloride 112 mmol/L (98-107); Creatinine, Serum 1.12 mg/dL (0.55-1.02); EST Glomerular Filtration Rate 51 mL/min (>60); Est Glom Filt Rate - Afr Amer 61 mL/min (>60); Estimated Creatinine Clearance 41.25 ml/min; Glucose 79 mg/dL (74-106); Potassium 3.5 mmol/L (3.5-5.1); Sodium Level 142 mmol/L (136-145)
--- NOTE | 2023-03-22 09:58 | PCM.PN.CARD ---
Subjective Subjective Denies any plaints. Heart rate improved but still in the high 90s to low 100s. Objective Data Vital Signs: Vital Signs Temp Pulse Resp BP Pulse Ox O2 Del Method O2 Flow Rate 97.9 F 89 16 121/86 H 91 Room Air 2 03/22/23 04:16 03/22/23 04:16 03/22/23 04:16 03/22/23 04:16 03/22/23 06:48 03/22/23 08:11 03/21/23 07:08 FiO2 94 03/21/23 07:08 Oxygen Flow Rate (L/min) 2 Oxygen Delivery Method Room Air Weight: 166 lb 3.657 oz Body Mass Index (BMI) 26.8 Intake & Output: Intake and Output for Last 24 Hours 03/20/23 03/21/23 03/22/23 23:59 23:59 23:59 Intake Total 549.95 / 549.95 702.28 / 702.28 Output Total 300 / 300 Balance 549.95 / 549.95 402.28 / 402.28 Lab / Micro Data Result Diagrams: 03/22/23 06:41 03/22/23 06:41 Labs: Laboratory Results - last 24 hr 03/21/23 10:20: Urine Color Yellow, Urine Clarity Sl. Cloudy, Urine pH 5.0, Ur Specific [place] 1.015, Urine Protein 30 H, Urine Glucose (UA) 250 H, Urine Ketones 15 H, Urine Occult Blood 150 H, Urine Nitrite Positive H, Urine Bilirubin Negative, Urine Urobilinogen Normal, Ur Leukocyte Esterase 25 H, Urine RBC 10-25 SEEN, Urine WBC 0-5 SEEN, Ur Squamous Epith Cells 0-5 SEEN, Urine Bacteria 1+, Urine Mucus 0 SEEN 03/21/23 11:05: POC Glucose 235 H 03/21/23 16:31: POC Glucose 138 H 03/22/23 06:41: WBC 7.7, RBC 3.56 L, Hgb 10.7 L, Hct 33.0 L, MCV 92.7, MCH 30.1, MCHC 32.4, RDW Std Deviation 51.8 H, RDW Coeff of [place] 15.1 H, Plt Count 190, MPV 9.7, Immature Gran % (Auto) 0.400, Neut % (Auto) 74.5 H, Lymph % (Auto) 13.8 L, [place] % (Auto) 10.0, Eos % (Auto) 0.9, Baso % (Auto) 0.4, Absolute Neuts (auto) 5.7, Absolute Lymphs (auto) 1.06, Nucleated RBC % 0 03/22/23 06:41: Sodium 142, Potassium 3.5, Chloride 112 H, Carbon Dioxide 21.0, Anion Gap 9, BUN 23 H, Creatinine 1.12 H, Estim Creat Clear Calc 41.25, Est GFR (MDRD) Af Amer 61, Est GFR (MDRD) Non-Af 51 L, BUN/Creatinine Ratio 20.5 H, Glucose 79, Calcium 9.4 03/22/23 06:53: POC Glucose 81 Cardiology Labs/Tests 03/21/23 10:20: Urine Color Yellow, Urine Clarity Sl. Cloudy, Urine pH 5.0, Ur Specific [place] 1.015, Urine Protein 30 H, Urine Glucose (UA) 250 H, Urine Ketones 15 H, Urine Occult Blood 150 H, Urine Nitrite Positive H, Urine Bilirubin Negative, Urine Urobilinogen Normal, Ur Leukocyte Esterase 25 H, Urine RBC 10-25 SEEN, Urine WBC 0-5 SEEN 03/22/23 06:41: WBC 7.7, RBC 3.56 L, Hgb 10.7 L, Hct 33.0 L, MCV 92.7, MCH 30.1, MCHC 32.4, Plt Count 190, MPV 9.7, Immature Gran % (Auto) 0.400, Neut % (Auto) 74.5 H, Lymph % (Auto) 13.8 L, [place] % (Auto) 10.0, Eos % (Auto) 0.9, Baso % (Auto) 0.4, Absolute Neuts (auto) 5.7, Nucleated RBC % 0 03/22/23 06:41: Sodium 142, Potassium 3.5, Chloride 112 H, Carbon Dioxide 21.0, Anion Gap 9, BUN 23 H, Creatinine 1.12 H, Est GFR (MDRD) Af Amer 61, Est GFR (MDRD) Non-Af 51 L, BUN/Creatinine Ratio 20.5 H, Glucose 79, Calcium 9.4 Rhythm: EKG: ECHO: Stress Test: Cardiac Cath: PCI: CT Surgery: Holter monitor: EPS: PPM: CXR: Chest CT Scan: Radiography Diagnostic Testing: Radiology Impression Brain MRI 03/21/23 10:18 IMPRESSION: No evidence for acute infarct or enhancing intracranial mass. Chronic involutional and white matter changes. Old left occipital infarct. Electronically Signed: Caro Molina MD at 15:59 EDT , Physical Exam Narrative Comfortable. No apparent distress. Heart sounds 1 and 2 noted. Irregularly irregular. Chest clear to auscultation bilaterally. Alert oriented x3. No ankle edema noted. Assessment & Plan Assessment/Plan (1) Syncope: PLAN: Secondary to symptomatic bradycardia and hypotension. Likely iatrogenic. Resolved with stopping her negative chronotropic medications.. (2) Sick sinus syndrome: PLAN: Atrial fibrillation. Ventricular rate improved but still not optimal. Will increase diltiazem to 60 mg every 6 hours. (3) Persistent atrial fibrillation: PLAN: On Eliquis. See #1 and 2 above. (4) Chronic kidney disease (CKD): PLAN: As per internal medicine. (5) Essential (primary) hypertension: PLAN: Monitor. (6) Diastolic dysfunction without heart failure: PLAN: Started on Lasix. Start on SGLT2 inhibitors.
[2023-03-22] MEDS: Cyanocobalamin 500 MCG Tablet 1000 MCG PO (10:07)
[2023-03-22] MEDS: Empagliflozin 10 MG Tablet PO (10:09)
[2023-03-22] MEDS: RisperiDONE 0.25 MG Tablet PO (10:09)
[2023-03-22] MEDS: Furosemide 20 MG Tablet PO (10:09)
[2023-03-22] MEDS: Insulin Glargine-YFGN 100 UNIT/ML Pen 8 UNIT SC (10:10)
[2023-03-22] MEDS: APIXABAN 5 MG TABLET PO ×2 (10:10→23:49)
[2023-03-22] MEDS: Metoprolol Tartrate 25 MG Tablet PO ×2 (10:12→18:48)
[2023-03-22] MEDS: Ceftriaxone 1 GM/50 ML BAG IV (10:32)
[2023-03-22 11:10] LABS: Bedside Glucose 137 mg/dL (74-106)
--- NOTE | 2023-03-22 11:22 | PCM.PN.HOSP ---
Reason for Visit Reason for Visit: Syncope Subjective Subjective Patient had some mild agitation and confusion last night around 730 but after took her Risperdal she slept well through the night with no further agitation. Mental status seems much improved this morning and daughter who is at the bedside agrees. Her daughter does admit that she does have some baseline mild memory impairment but nothing severe. She still drives and has normal conversations and is able to take care of herself at this point. I did discuss with her the possibility of some mild cognitive impairment at baseline and recommended further testing after discharge to see if there is any signs of early dementia. Heart rates are overall better but still somewhat tachycardic. Cardiology has increased her Cardizem. Physical therapy saw the patient and she will not be needing any further therapy after discharge. Objective Data Objective Data Vital Signs: Vital Signs Temp Pulse Resp BP Pulse Ox O2 Del Method O2 Flow Rate 97.8 F 88 17 101/73 95 Room Air 2 03/22/23 09:30 03/22/23 10:12 03/22/23 09:30 03/22/23 09:30 03/22/23 09:30 03/22/23 09:30 03/21/23 07:08 FiO2 94 03/21/23 07:08 Oxygen Flow Rate (L/min) 2 Oxygen Delivery Method Room Air Weight: 75.4 kg Body Mass Index (BMI) 26.8 Intake & Output: Intake and Output for Last 24 Hours 03/20/23 03/21/23 03/22/23 23:59 23:59 23:59 Intake Total 549.95 / 549.95 702.28 / 702.28 Output Total 300 / 300 Balance 549.95 / 549.95 402.28 / 402.28 Lab / Micro Data Result Diagrams: 03/22/23 06:41 03/22/23 06:41 Labs: Laboratory Results - last 24 hr 03/21/23 11:05: POC Glucose 235 H 03/21/23 16:31: POC Glucose 138 H 03/22/23 06:41: WBC 7.7, RBC 3.56 L, Hgb 10.7 L, Hct 33.0 L, MCV 92.7, MCH 30.1, MCHC 32.4, RDW Std Deviation 51.8 H, RDW Coeff of [place] 15.1 H, Plt Count 190, MPV 9.7, Immature Gran % (Auto) 0.400, Neut % (Auto) 74.5 H, Lymph % (Auto) 13.8 L, [place] % (Auto) 10.0, Eos % (Auto) 0.9, Baso % (Auto) 0.4, Absolute Neuts (auto) 5.7, Absolute Lymphs (auto) 1.06, Nucleated RBC % 0 03/22/23 06:41: Sodium 142, Potassium 3.5, Chloride 112 H, Carbon Dioxide 21.0, Anion Gap 9, BUN 23 H, Creatinine 1.12 H, Estim Creat Clear Calc 41.25, Est GFR (MDRD) Af Amer 61, Est GFR (MDRD) Non-Af 51 L, BUN/Creatinine Ratio 20.5 H, Glucose 79, Calcium 9.4 03/22/23 06:53: POC Glucose 81 03/22/23 10:04: POC Glucose 137 H Micro: Microbiology 03/21/23 10:20 Urine, Clean Catch Urine Culture - Preliminary Presumptive E. coli Radiography Diagnostic Testing: Radiology Impression Brain MRI 03/21/23 10:18 IMPRESSION: No evidence for acute infarct or enhancing intracranial mass. Chronic involutional and white matter changes. Old left occipital infarct. Electronically Signed: Caro Molina MD at 15:59 EDT , Physical Exam Const alert, oriented x3, no apparent distress and well nourished Constitutional Narrative: Older white female sitting up in bed, daughter and grandson at the bedside, patient's orientation and mental status is much improved today with very minimal confusion compared to yesterday HEENT head/scalp atraumatic and moist oral mucous membranes HEENT Narrative: Mallampati is 2, no thrush Head and Scalp: normocephalic Resp normal respiratory effort, no retractions, no use of accessory muscles and clear to auscultation bilaterally Auscultation: Negative for rales, rhonchi or wheezes Cardio S1 normal heart sound, S2 normal heart sound, no murmurs, no rub, no gallops and no clicks Cardio Narrative: Irregularly irregular rhythm, mildly tachycardic GI normal to inspection, nondistended, normoactive bowel sounds, soft to palpation and non-tender Extremity no clubbing, cyanosis or edema Extremity Narrative: Pedal pulses are 2+ Neuro oriented x3, moves all extremities and no focal motor deficits Neuro Narrative: Patient is oriented x3 today, still some mild confusion with current events but remembering her family members and overall mental status is significantly better Speech: speech normal Psych affect normal Psych Narrative: Patient with mild confusion, no anxiety at this time, thought processes is much less tangential Assessment & Plan Assessment/Plan (1) Bradycardia: (2) Syncope: (3) Elevated serum creatinine: (4) Hypoxia: (5) Toxic metabolic encephalopathy: (6) Diastolic dysfunction without heart failure: (7) Sick sinus syndrome: (8) Chronic kidney disease (CKD): (9) E. coli UTI: PLAN: Plan Symptomatic bradycardia -Several syncopal episodes prior to admission -Heart rate in the 20s at lowest -Suspect iatrogenic related to her calcium channel rajinder and beta-rajinder -Now tachycardic with A-fib with RVR but rates improving with up titration of her calcium channel rajinder/beta-rajinder -Echocardiogram showed mild global left ventricular dysfunction with an EF of 45% and at least stage II diastolic dysfunction, severe biatrial enlargement, moderate mitral valve insufficiency, right ventricular systolic pressure 51 mmHg, mild to moderate aortic valve insufficiency, mildly dilated aortic root -Last echocardiogram from 04/11/2019 showed a normal EF at 53% and diastolic dysfunction cannot be estimated due to arrhythmia with atrial fibrillation and moderate mitral valve calcification with stenosis at 1+ insufficiency, pulmonary artery systolic pressures were 26 mmHg -TSH is within normal limits -Cardiology is following-appreciate input -Per documentation they suspect that she will be able to be controlled with medications only and no pacemaker required at this time however that could change Atrial fibrillation with RVR -Suspect SSS -Continue Cardizem and metoprolol -Cardizem was uptitrated slightly today -Backup pacemaker is not off the table at this point however it sounds as if cardiology is going to hold off currently -Continue Eliquis Toxic/metabolic encephalopathy -Suspect multifactorial--> bradycardia, mild cognitive impairment at baseline, UTI, medication induced -Still with some delirium however much improved -Daughter at the bedside today reports some mild cognitive impairment at baseline and forgetfulness but no significant impairment -MRI of the brain done yesterday 03/21/2023 showed no evidence of acute infarct or enhancing intracranial mass but did show chronic involutional and white matter changes and an old left occipital infarct. -Continue Risperdal 1 mg at bedtime -Add respite all 0.5 mg this morning -Overall much improved -I do recommend the patient undergo cognitive testing for memory loss after discharge E. coli UTI -Culture sensitivities are pending -Continue ceftriaxone CKD stage IIIb -Baseline appears to be at 1.2-1.4 as noted previously -Avoid nephrotoxins as able -Continue to monitor Chronic HFpEF-compensated -Likely due to diastolic dysfunction -Continue Lasix -Continue Jardiance and will continue at discharge Hypothyroidism -TSH is within normal limits -Continue levothyroxine DM-2 -Continue Lantus 8 units -SSI before meals and at bedtime -Accu-Cheks as ordered -Cardiac/carb controlled diet Hyperlipidemia -Continue statin Hypertension -Continue Lasix -Continue home ARB -Continue beta-rajinder/calcium channel rajinder per cardiology History of mitral valve stenosis with insufficiency -Currently stable Secondary pulmonary hypertension -Suspect who group 2 or 3 -Continue home Lasix -Last echo done in 2018 showed pulmonary artery systolic pressures at 26 mmHg--> worse this echocardiogram showing a right ventricular systolic pressure 51 mmHg History of tobacco abuse -Remote DVT prophylaxis -Continue Eliquis CODE STATUS -full code Charges/Coding Visit Charges Inpatient E&M: 43927 Subs Hosp L2
[2023-03-22] MEDS: Losartan Potassium 50 MG Tablet PO (12:03)
[2023-03-22] MEDS: dilTIAZem 60 MG Tablet PO ×3 (12:08→23:47)
[2023-03-22 16:14] LABS: Bedside Glucose 99 mg/dL (74-106)
[2023-03-22] MEDS: MELATONIN 10 MG TABLET PO (23:47)
[2023-03-22] MEDS: Atorvastatin Calcium 20 MG Tablet PO (23:48)
[2023-03-22] MEDS: RisperiDONE 1 MG Tablet PO (23:50)
[2023-03-23] VITALS (21 sets, daily range): BP systolic 113–144; BP diastolic 56–96; PULSE 92–154; RESP 13–25; TEMP 36.1–36.8; O2SAT 93–99; BMI 26.6
[2023-03-23 00:22] LABS: Bedside Glucose 113 mg/dL (74-106)
[2023-03-23] MEDS: Amiodarone 360 MG in Dextrose 5% Viaflo Bag 192.8 ML 33.3 MG CONT INF (02:24)
--- NOTE | 2023-03-23 02:55 | NURSING ---
Emergency Charting in effect as of 03/22/23 @ [id number]
--- NOTE | 2023-03-23 03:00 | ED.RN ---
Emergency charting in effect 03/22/23 @ [id number]
[2023-03-23] MEDS: dilTIAZem 60 MG Tablet PO (06:17)
[2023-03-23] MEDS: Levothyroxine 25 MCG TABLET PO (06:18)
[2023-03-23 06:32] LABS: Absolute Lymphocyte Count 1.07 X10^3/uL (0.83-4.51); Absolute Neutrophil Count 5.5 X10^3/uL (2.0-7.7); Basophil# 0.01 X10^3/uL; Basophil% 0.1 % (0-1); Eosinophil# 0.03 X10^3/uL; Eosinophils% 0.4 % (0-5); Hematocrit 35.8 % (37-47); Hemoglobin 11.8 g/dL (12.0-15.0); Lymphocyte # 1.07 X10^3/ul (0.83-4.51); Lymphocyte % 14.7 % (19-41); Mean Corpuscular Hgb 29.7 pg (27.0-32.0); Mean Corpuscular Volume 90.2 fL (81-99); Mean Platelet Vol. 9.4 fl (6.2-12.0); Monocyte% 9.6 % (0-10); NRBC Flagged by Analyzer 0 % (0-5); Neutrophil # 5.48 X10^3/uL (2.7-7.7); Neutrophil % 75.1 % (47-70); Platelet Count 197 K/mm3 (150-450); RBC Distribution Width CV 14.9 % (11.6-14.6); RBC Distribution Width SD 48.8 fl (35.1-43.9); Red Blood Count 3.97 M/mm3 (4.2-5.4); White Blood Count 7.3 K/mm3 (4.4-11.0)
[2023-03-23 06:41] LABS: Bedside Glucose 107 mg/dL (74-106)
[2023-03-23 07:06] LABS: AST(SGOT) 15 U/L (15-37); Alanine Aminotransfer ALT/SGPT 27 U/L (13-56); Albumin, Serum 3.2 g/dL (3.2-5.0); Alkaline Phosphatase 79 U/L (45-117); Anion Gap 10 (5-15); BUN 18 mg/dL (7-18); BUN/Creat Ratio 17.5 RATIO (10-20); Bilirubin, Direct 0.23 mg/dL (0.00-0.30); Calcium,Total 9.2 mg/dL (8.5-10.1); Chloride 109 mmol/L (98-107); Creatinine, Serum 1.03 mg/dL (0.55-1.02); EST Glomerular Filtration Rate 56 mL/min (>60); Est Glom Filt Rate - Afr Amer 67 mL/min (>60); Estimated Creatinine Clearance 44.86 ml/min; Globulin 3.7 g/dL (2.2-4.2); Glucose 101 mg/dL (74-106); Protein, Total 6.9 g/dL (6.4-8.2); Sodium Level 139 mmol/L (136-145)
[2023-03-23] MEDS: APIXABAN 5 MG TABLET PO ×2 (09:48→22:11)
[2023-03-23] MEDS: Losartan Potassium 50 MG Tablet PO (09:48)
[2023-03-23] MEDS: Empagliflozin 10 MG Tablet PO (09:48)
[2023-03-23] MEDS: Cyanocobalamin 500 MCG Tablet 1000 MCG PO (09:49)
[2023-03-23] MEDS: Furosemide 20 MG Tablet PO (09:49)
[2023-03-23] MEDS: RisperiDONE 0.25 MG Tablet PO (09:49)
[2023-03-23] MEDS: 0.9% Saline Lock 10 ML Syringe IV ×2 (09:50→20:29)
[2023-03-23] MEDS: Ceftriaxone 1 GM/50 ML BAG IV (09:53)
[2023-03-23] MEDS: Metoprolol Tartrate 50 MG Tablet PO ×2 (09:54→22:09)
[2023-03-23] MEDS: dilTIAZem CD 120 MG Capsule PO (09:55)
--- NOTE | 2023-03-23 09:55 | PN.CARD_ITS ---
Subjective Subjective Ventricular rate still not optimally controlled. Diltiazem increased this morning. Continue on beta-blockers. Objective Data Vital Signs: Vital Signs Temp Pulse Resp BP Pulse Ox O2 Del Method O2 Flow Rate 98.1 F 106 H 16 123/67 H 97 Room Air 2 03/23/23 06:13 03/23/23 06:13 03/23/23 06:13 03/23/23 06:13 03/23/23 07:30 03/23/23 07:30 03/21/23 07:08 FiO2 94 03/21/23 07:08 Oxygen Flow Rate (L/min) 2 Oxygen Delivery Method Room Air Weight: 165 lb 5.547 oz Body Mass Index (BMI) 26.6 Intake & Output: Intake and Output for Last 24 Hours 03/21/23 03/22/23 03/23/23 23:59 23:59 23:59 Intake Total 702.28 / 702.28 1550 / 1650 422.89 / 422.89 Output Total 300 / 300 Balance 402.28 / 402.28 1550 / 1650 422.89 / 422.89 Lab / Micro Data Result Diagrams: 03/23/23 05:57 03/23/23 05:57 Labs: Laboratory Results - last 24 hr 03/22/23 10:04: POC Glucose 137 H 03/22/23 15:53: POC Glucose 99 03/22/23 23:45: POC Glucose 113 H 03/23/23 05:57: WBC 7.3, RBC 3.97 L, Hgb 11.8 L, Hct 35.8 L, MCV 90.2, MCH 29.7, MCHC 33.0, RDW Std Deviation 48.8 H, RDW Coeff of [place] 14.9 H, Plt Count 197, MPV 9.4, Immature Gran % (Auto) 0.100, Neut % (Auto) 75.1 H, Lymph % (Auto) 14.7 L, [place] % (Auto) 9.6, Eos % (Auto) 0.4, Baso % (Auto) 0.1, Absolute Neuts (auto) 5.5, Absolute Lymphs (auto) 1.07, Nucleated RBC % 0 03/23/23 05:57: Sodium 139, Potassium 3.0 L, Chloride 109 H, Carbon Dioxide 20.0 L, Anion Gap 10, BUN 18, Creatinine 1.03 H, Estim Creat Clear Calc 44.86, Est GFR (MDRD) Af Amer 67, Est GFR (MDRD) Non-Af 56 L, BUN/Creatinine Ratio 17.5, Glucose 101, Calcium 9.2, Total Bilirubin 0.70, Direct Bilirubin 0.23, AST 15, ALT 27, Alkaline Phosphatase 79, Total Protein 6.9, Albumin 3.2, Globulin 3.7 03/23/23 06:11: POC Glucose 107 H Micro: Microbiology 03/21/23 10:20 Urine, Clean Catch Urine Culture - Final Presumptive E. coli Cardiology Labs/Tests 03/23/23 05:57: WBC 7.3, RBC 3.97 L, Hgb 11.8 L, Hct 35.8 L, MCV 90.2, MCH 29.7, MCHC 33.0, Plt Count 197, MPV 9.4, Immature Gran % (Auto) 0.100, Neut % (Auto) 75.1 H, Lymph % (Auto) 14.7 L, [place] % (Auto) 9.6, Eos % (Auto) 0.4, Baso % (Auto) 0.1, Absolute Neuts (auto) 5.5, Nucleated RBC % 0 03/23/23 05:57: Sodium 139, Potassium 3.0 L, Chloride 109 H, Carbon Dioxide 20.0 L, Anion Gap 10, BUN 18, Creatinine 1.03 H, Est GFR (MDRD) Af Amer 67, Est GFR (MDRD) Non-Af 56 L, BUN/Creatinine Ratio 17.5, Glucose 101, Calcium 9.2, Total Bilirubin 0.70, Direct Bilirubin 0.23 Rhythm: EKG: ECHO: Stress Test: Cardiac Cath: PCI: CT Surgery: Holter monitor: EPS: PPM: CXR: Chest CT Scan: Physical Exam Narrative Comfortable. No apparent distress. Heart sounds 1 and 2 noted. Irregularly irregular. Chest clear to auscultation bilaterally. Alert oriented x3. No ankle edema noted. Assessment & Plan Assessment/Plan (1) Syncope: PLAN: Secondary to symptomatic bradycardia and hypotension. Likely iatrogenic. Resolved with stopping her negative chronotropic medications.. (2) Sick sinus syndrome: PLAN: Atrial fibrillation. Ventricular rate improved but still not optimal. Diltiazem and metoprolol dose increased. Monitor. (3) Persistent atrial fibrillation: PLAN: On Eliquis. See #1 and 2 above. (4) Chronic kidney disease (CKD): PLAN: As per internal medicine. (5) Essential (primary) hypertension: PLAN: Monitor. (6) Diastolic dysfunction without heart failure: PLAN: Started on Lasix. Start on SGLT2 inhibitors.
[2023-03-23] MEDS: Insulin Glargine-YFGN 100 UNIT/ML Pen 8 UNIT SC (10:04)
[2023-03-23] MEDS: Potassium Chloride Oral Tablet 20 MEQ 60 MEQ PO (10:14)
[2023-03-23 10:28] LABS: Bedside Glucose 131 mg/dL (74-106)
--- NOTE | 2023-03-23 11:52 | PN.HOSP_ITS ---
Reason for Visit Reason for Visit: Syncope Subjective Subjective No issues overnight. Mental status is back to baseline and no issues with hallucinations or delirium. Heart rates did elevate to as high as 150 through the night. [employer] restarted amiodarone drip but this has since been stopped and adjustments made by cardiology and medication regimen. Patient will be able to be discharged once heart rates are better controlled. I discussed with with her and she voiced understanding. Objective Data Objective Data Vital Signs: Vital Signs Temp Pulse Resp BP Pulse Ox O2 Del Method O2 Flow Rate 97.0 F L 135 H 21 H 113/66 95 Room Air 2 03/23/23 09:00 03/23/23 09:54 03/23/23 09:00 03/23/23 09:54 03/23/23 09:00 03/23/23 09:00 03/21/23 07:08 FiO2 94 03/21/23 07:08 Oxygen Flow Rate (L/min) 2 Oxygen Delivery Method Room Air Weight: 75 kg Body Mass Index (BMI) 26.6 Intake & Output: Intake and Output for Last 24 Hours 03/21/23 03/22/23 03/23/23 23:59 23:59 23:59 Intake Total 702.28 / 702.28 1550 / 1650 553.00 / 553.00 Output Total 300 / 300 Balance 402.28 / 402.28 1550 / 1650 553.00 / 553.00 Lab / Micro Data Result Diagrams: 03/23/23 05:57 03/23/23 05:57 Labs: Laboratory Results - last 24 hr 03/22/23 15:53: POC Glucose 99 03/22/23 23:45: POC Glucose 113 H 03/23/23 05:57: WBC 7.3, RBC 3.97 L, Hgb 11.8 L, Hct 35.8 L, MCV 90.2, MCH 29.7, MCHC 33.0, RDW Std Deviation 48.8 H, RDW Coeff of [place] 14.9 H, Plt Count 197, MPV 9.4, Immature Gran % (Auto) 0.100, Neut % (Auto) 75.1 H, Lymph % (Auto) 14.7 L, [place] % (Auto) 9.6, Eos % (Auto) 0.4, Baso % (Auto) 0.1, Absolute Neuts (auto) 5.5, Absolute Lymphs (auto) 1.07, Nucleated RBC % 0 03/23/23 05:57: Sodium 139, Potassium 3.0 L, Chloride 109 H, Carbon Dioxide 20.0 L, Anion Gap 10, BUN 18, Creatinine 1.03 H, Estim Creat Clear Calc 44.86, Est GFR (MDRD) Af Amer 67, Est GFR (MDRD) Non-Af 56 L, BUN/Creatinine Ratio 17.5, Glucose 101, Calcium 9.2, Total Bilirubin 0.70, Direct Bilirubin 0.23, AST 15, ALT 27, Alkaline Phosphatase 79, Total Protein 6.9, Albumin 3.2, Globulin 3.7 03/23/23 06:11: POC Glucose 107 H 03/23/23 10:03: POC Glucose 131 H Micro: Microbiology 03/21/23 10:20 Urine, Clean Catch Urine Culture - Final Presumptive E. coli Physical Exam Const alert, oriented x3, no apparent distress and well nourished Constitutional Narrative: Older white female, sitting up in bed, appears comfortable and nontoxic, mental status is at baseline, nursing at bedside at time Orientation / Consciousness: Negative for confused, disoriented or lethargic HEENT head/scalp atraumatic and moist oral mucous membranes HEENT Narrative: Mallampati 2, no thrush Head and Scalp: normocephalic Resp normal respiratory effort, no retractions, no use of accessory muscles and clear to auscultation bilaterally Auscultation: Negative for rales, rhonchi or wheezes Cardio regular rate, regular rhythm, S1 normal heart sound, S2 normal heart sound, no murmurs, no rub, no gallops and no clicks Cardio Narrative: Irregularly irregular rhythm, mildly tachycardic with heart rates in the 110-120 range GI normal to inspection, nondistended, normoactive bowel sounds, soft to palpation and non-tender Extremity no clubbing, cyanosis or edema Extremity Narrative: Pedal pulses are 2+ Neuro oriented x3, moves all extremities and no focal motor deficits Neuro Narrative: No confusion and mental status appears to be back to baseline, mild generalized weakness but no focal deficits Sensorium / Orientation: awake, alert, oriented to person, oriented to place and oriented to time Speech: speech normal Psych affect normal Psych Narrative: Very pleasant, appropriately interactive Assessment & Plan Assessment/Plan (1) Bradycardia: (2) Syncope: (3) Elevated serum creatinine: (4) Hypoxia: (5) Toxic metabolic encephalopathy: (6) Diastolic dysfunction without heart failure: (7) Sick sinus syndrome: (8) Chronic kidney disease (CKD): (9) E. coli UTI: (10) Hypokalemia: PLAN: Plan Symptomatic bradycardia -Several syncopal episodes prior to admission -Heart rate in the 20s at lowest -Suspect iatrogenic related to her calcium channel rajinder and beta-rajinder -Remains tachycardic with A-fib with RVR but rates improving with up titration of her calcium channel rajinder/beta-rajinder -Unfortunately had further heart rate elevation to the night and amiodarone drip was reinitiated--> we will stop and make adjustments in beta-rajinder today per discussion with cardiology -Echocardiogram showed mild global left ventricular dysfunction with an EF of 45% and at least stage II diastolic dysfunction, severe biatrial enlargement, moderate mitral valve insufficiency, right ventricular systolic pressure 51 mmHg, mild to moderate aortic valve insufficiency, mildly dilated aortic root -Last echocardiogram from 04/11/2019 showed a normal EF at 53% and diastolic dysfunction cannot be estimated due to arrhythmia with atrial fibrillation and moderate mitral valve calcification with stenosis at 1+ insufficiency, pulmonary artery systolic pressures were 26 mmHg -TSH is within normal limits -Cardiology is following-appreciate input -Per documentation they suspect that she will be able to be controlled with medications only and no pacemaker required at this time -Will need 48-hour Holter monitor at discharge Atrial fibrillation with RVR -Suspect SSS -Continue Cardizem and metoprolol -Cardizem transition to 120 mg p.o. twice daily -Increase metoprolol to 50 mg twice daily (previous home baseline doses were 150 mg p.o. twice daily of metoprolol and 300 mg daily of diltiazem) -Backup pacemaker is not off the table at this point however it sounds as if cardiology is going to hold off currently -Continue Eliquis Hypokalemia -P.o. potassium replacement ordered -Repeat lab in a.m. and check a.m. magnesium level Toxic/metabolic encephalopathy -Suspect multifactorial--> bradycardia, mild cognitive impairment at baseline, UTI, medication induced -Still with some delirium however much improved -Daughter at the bedside today reports some mild cognitive impairment at baseline and forgetfulness but no significant impairment -MRI of the brain done yesterday 03/21/2023 showed no evidence of acute infarct or enhancing intracranial mass but did show chronic involutional and white matter changes and an old left occipital infarct. -Continue Risperdal 1 mg at bedtime -Add respite all 0.5 mg this morning -Overall much improved -I do recommend the patient undergo cognitive testing for memory loss after discharge E. coli UTI -Organism is resistant to ceftriaxone -We will discontinue ceftriaxone and transition to ciprofloxacin 250 mg p.o. twice daily x3 days CKD stage IIIb -Baseline appears to be at 1.2-1.4 as noted previously -Serum creatinine currently 1.03 -Avoid nephrotoxins as able -Continue to monitor Chronic HFpEF-compensated -Likely due to diastolic dysfunction -Continue Lasix -Continue Jardiance and will continue at discharge Hypothyroidism -TSH is within normal limits -Continue levothyroxine DM-2 -Continue Lantus 8 units -SSI before meals and at bedtime -Blood sugars are fairly well controlled with current regimen -Accu-Cheks as ordered -Cardiac/carb controlled diet Hyperlipidemia -Continue statin Hypertension -Continue Lasix -Continue home ARB -Continue beta-rajinder/calcium channel rajinder per cardiology History of mitral valve stenosis with insufficiency -Currently stable Secondary pulmonary hypertension -Suspect who group 2 or 3 -Continue home Lasix -Last echo done in 2019 showed pulmonary artery systolic pressures at 26 mmHg--> worse this echocardiogram showing a right ventricular systolic pressure 51 mmHg History of tobacco abuse -Remote DVT prophylaxis -Continue Eliquis CODE STATUS -full code Charges/Coding Visit Charges Inpatient E&M: 71844 Subs Hosp L2
[2023-03-23] MEDS: Ciprofloxacin 250 MG Tablet PO ×2 (13:00→22:11)
[2023-03-23 17:28] LABS: Bedside Glucose 154 mg/dL (74-106)
[2023-03-23] MEDS: Digoxin 250 MCG/ML Ampul 500 MCG IV (20:25)
[2023-03-23] MEDS: dilTIAZem CD 180 MG Capsule PO (22:08)
[2023-03-23] MEDS: MELATONIN 10 MG TABLET PO (22:09)
[2023-03-23] MEDS: Atorvastatin Calcium 20 MG Tablet PO (22:09)
[2023-03-23] MEDS: RisperiDONE 1 MG Tablet PO (22:10)
[2023-03-24] VITALS (8 sets, daily range): BP systolic 113–152; BP diastolic 52–89; PULSE 74–94; RESP 12–18; TEMP 36.5–36.7; O2SAT 92–100; BMI 25.9
[2023-03-24 02:05] LABS: Bedside Glucose 121 mg/dL (74-106)
[2023-03-24] MEDS: Levothyroxine 25 MCG TABLET PO (06:40)
[2023-03-24 07:10] LABS: Anion Gap 10 (5-15); BUN 17 mg/dL (7-18); Calcium,Total 9.7 mg/dL (8.5-10.1); Chloride 109 mmol/L (98-107); Creatinine, Serum 1.06 mg/dL (0.55-1.02); EST Glomerular Filtration Rate 54 mL/min (>60); Est Glom Filt Rate - Afr Amer 65 mL/min (>60); Estimated Creatinine Clearance 43.59 ml/min; Glucose 79 mg/dL (74-106); Magnesium 2.1 mg/dL (1.6-2.6); Potassium 3.7 mmol/L (3.5-5.1); Sodium Level 139 mmol/L (136-145)
[2023-03-24 07:17] LABS: Bedside Glucose 71 mg/dL (74-106)
--- NOTE | 2023-03-24 09:15 | EKG12_ITS ---
Test Reason : post medication Blood Pressure : / mmHG Vent. Rate : 075 BPM Atrial Rate : 000 BPM P-R Int : 000 ms QRS Dur : 116 ms QT Int : 368 ms P-R-T Axes : 000 -23 168 degrees QTc Int : 410 ms Atrial fibrillation Incomplete left bundle branch block Minimal voltage criteria for LVH, may be normal variant ( [place] product ) ST & T wave abnormality, consider lateral ischemia Abnormal ECG When compared with ECG of 19-MAR-2023 19:01, ST now depressed in Lateral leads T wave inversion now evident in Lateral leads QT has shortened Confirmed by RACQUEL VALLE, JUJU ([id number]), writer editor KRISTA SHOOK ([id number]) on 03/26/2023 2:29:42 PM Referred By: Jaswant Confirmed By:JUJU CLEMENT MD
[2023-03-24] MEDS: Ciprofloxacin 250 MG Tablet PO ×2 (09:49→22:28)
[2023-03-24] MEDS: Insulin Glargine-YFGN 100 UNIT/ML Pen 8 UNIT SC (09:49)
[2023-03-24] MEDS: Losartan Potassium 50 MG Tablet PO (09:49)
[2023-03-24] MEDS: dilTIAZem CD 180 MG Capsule PO ×2 (09:49→22:28)
[2023-03-24] MEDS: APIXABAN 5 MG TABLET PO ×2 (09:49→22:28)
[2023-03-24] MEDS: Furosemide 20 MG Tablet PO (09:50)
[2023-03-24] MEDS: Metoprolol Tartrate 50 MG Tablet PO ×2 (09:50→22:28)
[2023-03-24] MEDS: Empagliflozin 10 MG Tablet PO (09:50)
[2023-03-24] MEDS: RisperiDONE 0.25 MG Tablet PO (09:51)
[2023-03-24] MEDS: Cyanocobalamin 500 MCG Tablet 1000 MCG PO (09:51)
--- NOTE | 2023-03-24 11:58 | PN.CARD_ITS ---
Subjective Subjective Denies any complaints. Ventricular rate better. Objective Data Vital Signs: Vital Signs Temp Pulse Resp BP Pulse Ox O2 Del Method O2 Flow Rate 98.0 F 79 14 150/78 H 99 Room Air 2 03/24/23 09:42 03/24/23 09:50 03/24/23 09:42 03/24/23 09:42 03/24/23 09:42 03/24/23 09:42 03/21/23 07:08 FiO2 94 03/21/23 07:08 Oxygen Flow Rate (L/min) 2 Oxygen Delivery Method Room Air Weight: 160 lb 14.999 oz Body Mass Index (BMI) 25.9 Intake & Output: Intake and Output for Last 24 Hours 03/22/23 03/23/23 03/24/23 23:59 23:59 23:59 Intake Total 1550 / 1650 1273.00 / 1273.00 Balance 1550 / 1650 1273.00 / 1273.00 Lab / Micro Data Result Diagrams: 03/23/23 05:57 03/24/23 05:31 Labs: Laboratory Results - last 24 hr 03/23/23 17:09: POC Glucose 154 H 03/23/23 22:07: POC Glucose 121 H 03/24/23 05:31: Sodium 139, Potassium 3.7, Chloride 109 H, Carbon Dioxide 20.0 L , Anion Gap 10, BUN 17, Creatinine 1.06 H, Estim Creat Clear Calc 43.59, Est GFR (MDRD) Af Amer 65, Est GFR (MDRD) Non-Af 54 L, BUN/Creatinine Ratio 16.0, Gl ucose 79, Calcium 9.7, Magnesium 2.1 03/24/23 06:38: POC Glucose 71 L Micro: Microbiology 03/21/23 10:20 Urine, Clean Catch Urine Culture - Final Presumptive E. coli Cardiology Labs/Tests 03/24/23 05:31: Sodium 139, Potassium 3.7, Chloride 109 H, Carbon Dioxide 20.0 L , Anion Gap 10, BUN 17, Creatinine 1.06 H, Est GFR (MDRD) Af Amer 65, Est GFR (MDRD) Non-Af 54 L, BUN/Creatinine Ratio 16.0, Glucose 79, Calcium 9.7, Magnesium 2.1 Rhythm: EKG: ECHO: Stress Test: Cardiac Cath: PCI: CT Surgery: Holter monitor: EPS: PPM: CXR: Chest CT Scan: Physical Exam Narrative Comfortable. No apparent distress. Heart sounds 1 and 2 noted. Irregularly irregular. Chest clear to auscultation bilaterally. Alert oriented x3. No ankle edema noted. Assessment & Plan Assessment/Plan (1) Syncope: PLAN: Secondary to symptomatic bradycardia and hypotension. Likely iatrogenic. Resolved with stopping her negative chronotropic medications.. (2) Sick sinus syndrome: PLAN: Atrial fibrillation. Ventricular rate controlled. (3) Persistent atrial fibrillation: PLAN: On Eliquis. See #1 and 2 above. (4) Chronic kidney disease (CKD): PLAN: As per internal medicine. (5) Essential (primary) hypertension: PLAN: Monitor. (6) Diastolic dysfunction without heart failure: PLAN: Started on Lasix. Start on SGLT2 inhibitors. (7) Mitral regurgitation: PLAN: Continue diuretics. Continue afterload reduction with angiotensin receptor rajinder. (8) Left ventricular systolic dysfunction (LVSD): PLAN: Continue angiotensin receptor rajinder. Continue beta-blockers. On Jardiance. Will consider outpatient stress test.
[2023-03-24] MEDS: Digoxin 125 MCG Tablet PO (12:45)
--- NOTE | 2023-03-24 13:57 | PN.HOSP_ITS ---
Reason for Visit Reason for Visit: Syncope Subjective Subjective Patient still with intermittent hallucinations and confusion. Per daughter had a really good day yesterday but last evening she got agitated again and was confused and having hallucinations. Is better this morning. Seems back to baseline at this time. I did discuss with the daughter that her urine culture did show E. coli but was unfortunately resistant to the antibiotic we had her on and ceftriaxone and she has been transitioned to ciprofloxacin. EKG this morning shows normal intervals with no QTc prolongation. I do highly suspect that the patient may have some baseline dementia. The daughter states that there are some pill bottles at home and the appropriate amount of medication has not been taken for the dates on the bottles. We will have neurology see her but strongly recommend outpatient neuropsych testing to further assess for cognitive impairment. Heart rates did trend up again last evening. She was given digoxin by cardiology and her heart rates do look better this morning. Objective Data Objective Data Vital Signs: Vital Signs Temp Pulse Resp BP Pulse Ox O2 Del Method O2 Flow Rate 98.0 F 78 14 150/78 H 99 Room Air 2 03/24/23 09:42 03/24/23 12:45 03/24/23 09:42 03/24/23 09:42 03/24/23 09:42 03/24/23 09:42 03/21/23 07:08 FiO2 94 03/21/23 07:08 Oxygen Flow Rate (L/min) 2 Oxygen Delivery Method Room Air Weight: 73 kg Body Mass Index (BMI) 25.9 Intake & Output: Intake and Output for Last 24 Hours 03/22/23 03/23/23 03/24/23 23:59 23:59 23:59 Intake Total 1550 / 1650 1273.00 / 1273.00 Balance 1550 / 1650 1273.00 / 1273.00 Lab / Micro Data Result Diagrams: 03/23/23 05:57 03/24/23 05:31 Labs: Laboratory Results - last 24 hr 03/23/23 17:09: POC Glucose 154 H 03/23/23 22:07: POC Glucose 121 H 03/24/23 05:31: Sodium 139, Potassium 3.7, Chloride 109 H, Carbon Dioxide 20.0 L , Anion Gap 10, BUN 17, Creatinine 1.06 H, Estim Creat Clear Calc 43.59, Est GFR (MDRD) Af Amer 65, Est GFR (MDRD) Non-Af 54 L, BUN/Creatinine Ratio 16.0, Glucose 79, Calcium 9.7, Magnesium 2.1 03/24/23 06:38: POC Glucose 71 L Micro: Microbiology 03/21/23 10:20 Urine, Clean Catch Urine Culture - Final Presumptive E. coli Physical Exam Const alert, oriented x3, no apparent distress and well nourished Constitutional Narrative: Older white female, sitting up in side, daughters at the bedside,, appears comfortable and nontoxic, mental status is at baseline currently Orientation / Consciousness: Negative for confused, disoriented or lethargic HEENT head/scalp atraumatic and moist oral mucous membranes HEENT Narrative: Dentition is fair for age, Mallampati is 2-3, no thrush Head and Scalp: normocephalic Resp normal respiratory effort, no retractions, no use of accessory muscles and clear to auscultation bilaterally Auscultation: Negative for rales, rhonchi or wheezes Cardio regular rate, S1 normal heart sound, S2 normal heart sound, no murmurs, no rub, no gallops and no clicks; Negative for regular rhythm Cardio Narrative: Irregularly irregular rhythm, rhythm is currently well controlled GI normal to inspection, nondistended, normoactive bowel sounds, soft to palpation and non-tender Extremity no clubbing, cyanosis or edema Extremity Narrative: Pedal pulses are 2+ Neuro oriented x3, moves all extremities and no focal motor deficits Neuro Narrative: Mentating well at this time Speech: speech normal Psych affect normal Psych Narrative: Very pleasant, appropriately interactive Assessment & Plan Assessment/Plan (1) Bradycardia: (2) Syncope: (3) Elevated serum creatinine: (4) Hypoxia: (5) Toxic metabolic encephalopathy: (6) Diastolic dysfunction without heart failure: (7) Sick sinus syndrome: (8) Chronic kidney disease (CKD): (9) E. coli UTI: (10) Hypokalemia: PLAN: Plan Symptomatic bradycardia -Several syncopal episodes prior to admission -Heart rate in the 20s at lowest -Suspect iatrogenic related to her calcium channel rajinder and beta-rajinder -Remains tachycardic with A-fib with RVR but rates improving with up titration of her calcium channel rajinder/beta-rajinder -Unfortunately had further heart rate elevation to the night and amiodarone drip was reinitiated--> we will stop and make adjustments in beta-rajinder today per discussion with cardiology -Echocardiogram showed mild global left ventricular dysfunction with an EF of 45% and at least stage II diastolic dysfunction, severe biatrial enlargement, moderate mitral valve insufficiency, right ventricular systolic pressure 51 mmHg, mild to moderate aortic valve insufficiency, mildly dilated aortic root -Last echocardiogram from 04/11/2019 showed a normal EF at 53% and diastolic dysfunction cannot be estimated due to arrhythmia with atrial fibrillation and moderate mitral valve calcification with stenosis at 1+ insufficiency, pulmonary artery systolic pressures were 26 mmHg -TSH is within normal limits -Cardiology is following-appreciate input -Per documentation they suspect that she will be able to be controlled with medications only and no pacemaker required at this time -Will need 48-hour Holter monitor at discharge Atrial fibrillation with RVR -Suspect SSS -Continue Cardizem and metoprolol -Cardizem transition to 120 mg p.o. twice daily -Increase metoprolol to 50 mg twice daily (previous home baseline doses were 150 mg p.o. twice daily of metoprolol and 300 mg daily of diltiazem) -Backup pacemaker is not off the table at this point however it sounds as if cardiology is going to hold off currently -Continue Eliquis Hypokalemia -Resolved Toxic/metabolic encephalopathy -Suspect multifactorial--> bradycardia, mild cognitive impairment at baseline, UTI, medication induced -Still with intermittent delirium that seems more consistent with -MRI of the brain done yesterday 03/21/2023 showed no evidence of acute infarct or enhancing intracranial mass but did show chronic involutional and white matter changes and an old left occipital infarct. -Continue Risperdal 1 mg at bedtime and 0.25 mg in the a.m. -Overall much improved -I do recommend the patient undergo cognitive testing for memory loss after discharge--> we will make referral to geriatric center at [facility] after discharge -Consult neurology to see if they have any further input E. coli UTI -Continue ciprofloxacin 250 mg p.o. twice daily x3 days--> day 2 of 3 CKD stage IIIb -Baseline appears to be at 1.2-1.4 as noted previously -Serum creatinine currently 1.03 -Avoid nephrotoxins as able -Continue to monitor Chronic HFpEF-compensated -Likely due to diastolic dysfunction -Continue Lasix -Continue Jardiance and will continue at discharge Hypothyroidism -TSH is within normal limits -Continue levothyroxine DM-2 -Continue Lantus 8 units -SSI before meals and at bedtime -Blood sugars are well controlled -Accu-Cheks as ordered -Cardiac/carb controlled diet Hyperlipidemia -Continue statin Hypertension -Continue Lasix -Continue home ARB -Continue beta-rajinder/calcium channel rajinder per cardiology History of mitral valve stenosis with insufficiency -Currently stable Secondary pulmonary hypertension -Suspect who group 2 or 3 -Continue home Lasix -Last echo done in 2018 showed pulmonary artery systolic pressures at 26 mmHg--> worse this echocardiogram showing a right ventricular systolic pressure 51 mmHg History of tobacco abuse -Remote DVT prophylaxis -Continue Eliquis CODE STATUS -full code Charges/Coding Visit Charges Inpatient E&M: 49141 Subs Hosp L2
[2023-03-24 16:35] LABS: Bedside Glucose 124 mg/dL (74-106)
[2023-03-24] MEDS: Atorvastatin Calcium 20 MG Tablet PO (22:28)
[2023-03-24] MEDS: RisperiDONE 1 MG Tablet PO (22:28)
[2023-03-24] MEDS: MELATONIN 10 MG TABLET PO (22:28)
[2023-03-24] MEDS: 0.9% Saline Lock 10 ML Syringe IV (22:29)
[2023-03-24 22:51] LABS: Bedside Glucose 109 mg/dL (74-106)
[2023-03-25 04:15] VITALS: BP 109/75; PULSE 87; RESP 16; TEMP 36.6; O2SAT 97
[2023-03-25 04:29] VITALS: BMI 25.9
[2023-03-25] MEDS: Levothyroxine 25 MCG TABLET PO (06:31)
[2023-03-25 06:53] LABS: Bedside Glucose 101 mg/dL (74-106)
[2023-03-25] MEDS: Ciprofloxacin 250 MG Tablet PO (07:43)
[2023-03-25] MEDS: Losartan Potassium 50 MG Tablet PO (07:43)
[2023-03-25] MEDS: dilTIAZem CD 180 MG Capsule PO (07:43)
[2023-03-25] MEDS: Insulin Glargine-YFGN 100 UNIT/ML Pen 8 UNIT SC (07:44)
[2023-03-25] MEDS: APIXABAN 5 MG TABLET PO (07:44)
[2023-03-25] MEDS: Empagliflozin 10 MG Tablet PO (07:44)
[2023-03-25 07:45] VITALS: PULSE 90
[2023-03-25] MEDS: Digoxin 125 MCG Tablet PO (07:45)
[2023-03-25] MEDS: Furosemide 20 MG Tablet PO (07:45)
[2023-03-25] MEDS: Metoprolol Tartrate 50 MG Tablet PO (07:45)
[2023-03-25] MEDS: RisperiDONE 0.25 MG Tablet PO (07:46)
[2023-03-25] MEDS: Cyanocobalamin 500 MCG Tablet 1000 MCG PO (07:46)
[2023-03-25 07:50] VITALS: O2SAT 98
[2023-03-25 08:00] VITALS: BP 109/69; PULSE 90; RESP 14; TEMP 36.7; O2SAT 99
--- NOTE | 2023-03-25 10:45 | PCM.DC.SUM ---
Providers Date of Admission: 03/19/23 Date of Discharge: 03/25/23 Primary Care Physician: No Primary Care Phys Consultations 03/19/23 21:15 Consult: Cardiology Routine Consulting Provider: Sharon Wynn Reason for Consult: Bradycardia with syncope EMERGENT Consult: No MD Notified: Yes Date Notified: 03/19/23 Time Notified: 20:26 Method of Notification: ED Physician Initiated Reason For Visit: SYMPTOMATIC BRADYCARDIA WITH SYNCOPE Diagnosis Discharge Diagnosis (1) Bradycardia: Status: Acute Code(s): R00.1 - Bradycardia, unspecified (2) Syncope: Status: Acute Code(s): R55 - Syncope and collapse (3) Elevated serum creatinine: Status: Acute Code(s): R79.89 - Other specified abnormal findings of blood chemistry (4) Hypoxia: Status: Resolved Code(s): R09.02 - Hypoxemia (5) Toxic metabolic encephalopathy: Status: Acute Code(s): G92.8 - Other toxic encephalopathy (6) Diastolic dysfunction without heart failure: Status: Acute Code(s): I51.89 - Other ill-defined heart diseases (7) Sick sinus syndrome: Status: Acute Code(s): I49.5 - Sick sinus syndrome (8) Chronic kidney disease (CKD): Status: Chronic Code(s): N18.9 - Chronic kidney disease, unspecified (9) E. coli UTI: Status: Acute Code(s): N39.0 - Urinary tract infection, site not specified; B96.20 - Unspecified Escherichia coli [E. coli] as the cause of diseases classified elsewhere (10) Hypokalemia: Status: Acute Code(s): E87.6 - Hypokalemia Medications at Discharge Home Medications insulin detemir U-100 100 unit/mL (3 mL) subcutaneous pen 8 unit subcut DAILY 03/26/18 levothyroxine 25 mcg tablet 25 mcg PO QDAY 03/26/18 metformin 500 mg tablet 500 mg PO BID 03/26/18 apixaban 5 mg tablet (Eliquis) 5 mg PO BID #60 tabs 03/09/20 cyanocobalamin (vitamin B-12) 1,000 mcg tablet (Vitamin B-12) 1,000 mcg PO DAILY 03/19/23 olmesartan 20 mg tablet 10 mg PO DAILY 03/19/23 rosuvastatin 10 mg tablet 10 mg PO DAILY 03/19/23 ciprofloxacin HCl 250 mg tablet 250 mg PO BID #3 tabs 03/25/23 digoxin 125 mcg (0.125 mg) tablet 125 mcg PO DAILY #30 tabs 03/25/23 diltiazem HCl 180 mg capsule,extended release 24 hr 180 mg PO Q12 #60 caps 03/25/23 empagliflozin 10 mg tablet (Jardiance) 10 mg PO DAILY #30 tabs 03/25/23 furosemide 20 mg tablet 20 mg PO DAILY #30 tabs 03/25/23 metoprolol tartrate 50 mg tablet 50 mg PO BID #60 tabs 03/25/23 risperidone 1 mg tablet 1 mg PO QHS #30 tabs 03/25/23 Hospital Course Procedures 2-D Echocardiogram, EKG and - (Chest x-ray/MRI brain) Summary of Care Provided Minutes Spent on Discharge: 38 Hospital Course: Mrs. Ayala is a 72-year-old white female who presented to the emergency department at [facility] on 03/19/2023 via private vehicle due to a syncopal episodes that had been occurring at home. She had a syncopal episode in the triage area and her heart rate was noted to be 20s at that time. She was immediately brought back to a room and placed in Trendelenburg position with a noted blood pressure of 66 systolic and heart rate in the low 30s. Family reported that she was complaining of chest pain prior to presentation and had not been feeling well for about 15 minutes prior to arrival. Once the patient was more awake she indicated she had not been feeling well all day and had been having some intermittent chest pressure. The patient does have a history of atrial fibrillation and had been living in [place] up until recently (4 days ago). She was noted to be on diltiazem and metoprolol at high doses for her history of atrial fibrillation and she is on apixaban chronically. Initially reported that she did not miss any doses however upon further investigation there is high suspicion that she had not been taking any of her regular medications completely as directed. Pacer pads were placed immediately and she was given atropine with no response in her heart rate. IV fluids were given and she was given half amp of epinephrine with improvement of heart rate and blood pressure. Her heart rate did drop back down once epinephrine started to wear off with heart rates in the 40s and hypotension was noted as well. She was started on epinephrine drip at that time. The case was discussed with the on-call tube buffer in the emergency department and they recommended transitioning her from epinephrine to dopamine. The patient was also given calcium gluconate. Her rate limiting medications were held and she was admitted to the ICU on a dopamine drip. She was evaluated by cardiology the following morning and her heart rates had been stable. Her dopamine was weaned at that time and was able to be turned off by the late afternoon of the same day. An echocardiogram was performed and demonstrated an EF of 45%. At least stage II diastolic dysfunction, severe left atrial enlargement and moderate right atrial enlargement, severe mitral valve insufficiency, moderate tricuspid valve insufficiency and a right ventricular systolic pressure of 51 mmHg. There is also some mild to moderate aortic valve insufficiency and a mildly dilated aortic root. Jardiance was started for her heart failure at 10 mg daily and she was discharged with this. Overnight from 03/20/2023 to 03/21/2023 the patient developed worsening tachycardia for which she was started on amiodarone drip. Cardiology came in the next day reevaluated the patient and restarted lower doses of Cardizem and metoprolol. Her tachycardia persisted and these medications were uptitrated and eventually digoxin had to be added at a low dose of 125 mcg daily. The addition of digoxin seem to control her heart rate and rates at discharge or anywhere from 70-95. After her first night of hospitalization she developed some delirium and hallucinations. A UA was performed and was consistent with infection. She was started on ceftriaxone and his urine culture was sent. Urine culture was resulted and unfortunately was resistant to ceftriaxone she was then transition to ciprofloxacin which she continued and was discharged with 3 more tablets to complete a 3-day course. Her mental status during the day seem to be good however in the evening she would develop intermittent delirium, hallucinations, and agitation. This seemed very consistent with sundowning and underlying dementia. None of her family had seen her recently and we were unable to talk to her as he is currently hospitalized at [facility] ([place], [place]) for a spontaneous head bleed. Family had noted some mild forgetfulness but she had never been diagnosed with any dementia and was still caring for herself and driving prior to to coming to [place] from [place]. We started some Risperdal to help with her behaviors in the evening and this did seem to help. She was sent home on this medication at 1 mg nightly. 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 There is no recollection by the patient or family of ever receiving a diagnosis of a stroke. Despite treatment ofHer urinary tract infection she remained with some delirium and hallucinations. We did have neurology see her. Are working diagnosis was probably some underlying dementia in association with some delirium from being hospitalized and having a urinary tract infection. They agreed with our diagnosis and agreed with treatment with respite all. I did discuss with the patient and her family about neurocognitive testing after discharge and information to follow-up with regards to this was given to the patient and family and they were instructed to call for follow-up. They voiced understanding and indicated they would do this. We will have them dose for Risperdal dose at 6 PM as she seems to start at that point. She was able to be discharged in stable condition on 03/25/2023 to her daughter's home. New prescriptions for diltiazem, metoprolol, digoxin, Jardiance, Risperdal, and her ciprofloxacin to complete treatment for her UTI was all sent to local pharmacy prior to discharge. She is to establish with a primary care physician which she has not done so as of yet being new to the area again. We recommended she do this is soon as possible and follow-up as soon as appointment is available. She is to call on 03/26/2023 to set up an appointment to be seen in Dr. Wynn's office for ongoing cardiology care. Discharge diagnoses: Symptomatic bradycardia-suspect iatrogenic A-fib with RVR Hypokalemia-resolved Toxic/metabolic encephalopathy Suspected mild cognitive impairment versus dementia E. coli UTI CKD stage IIIb Chronic HFrEF-compensated Hypothyroidism DM-2 Hyperlipidemia Hypertension History of mitral valve stenosis with insufficiency Secondary pulmonary artery hypertension-who group 2/3 History of tobacco abuse Physical Exam Const alert, oriented x3, no apparent distress and well nourished Constitutional Narrative: Older white female, sitting up in side, watching television, appears comfortable and nontoxic, mental status is at baseline currently General Appearance: cooperative, comfortable, well kempt and well developed Orientation / Consciousness: awake, oriented to person, oriented to place and oriented to time; Negative for confused, disoriented or lethargic Exam Limitations: no limitations Nutritional Appearance: overweight HEENT normocephalic, head/scalp atraumatic, hearing grossly normal bilaterally and moist oral mucous membranes HEENT Narrative: Mallampati 2, no thrush Eyes PERRL, EOMs intact bilaterally and conjunctivae normal Eyes Narrative: No scleral icterus Neck no lymphadenopathy and supple Neck Narrative: Trachea midline, no thyroid enlargement Resp normal respiratory effort, no retractions, no use of accessory muscles and clear to auscultation bilaterally Auscultation: Negative for rales, rhonchi or wheezes Cardio regular rate, S1 normal heart sound, S2 normal heart sound, no murmurs, no rub, no gallops and no clicks; Negative for regular rhythm Cardio Narrative: Irregularly irregular rhythm, rhythm is currently well controlled GI normal to inspection, nondistended, normoactive bowel sounds, soft to palpation and non-tender Extremity no clubbing, cyanosis or edema Extremity Narrative: Pedal pulses are 2+ Skin no rashes or lesions noted, no wounds, skin turgor normal, no jaundice, no petechiae and no mottling Neuro oriented x3, CN's II-XII intact bilaterally, moves all extremities and no focal motor deficits Sensorium / Orientation: awake, alert, oriented to person, oriented to place and oriented to time Speech: speech normal Psych affect normal Psych Narrative: Very pleasant, appropriately interactive Weight / BMI Weight Weight: 73 kg Body Mass Index (BMI) 25.9 ABG / Lab / Microbiology Data Result Diagrams: 03/23/23 05:57 03/24/23 05:31 Laboratory: Laboratory Results - last 24 hr 03/24/23 16:17: POC Glucose 124 H 03/24/23 22:24: POC Glucose 109 H 03/25/23 06:29: POC Glucose 101 Microbiology: Microbiology 03/21/23 10:20 Urine, Clean Catch Urine Culture - Final Presumptive E. coli D/C Instructions Discharge Diet: Low fat / Low cholesterol and 1800 Calorie Control Diet Discharge Activity: Return to Normal Activity and May Not Drive Meaningful Use Info Meaningful Use Diagnoses (Choose all that apply): None applicable Discharge Plan Admission Admit Date/Time: 03/19/23 20:14 Primary Reason for Your Visit: Syncope Attending Provider: Geeta Michaud Primary Care Provider: Care Physician,No Primary Consulting Providers: Ricco Rod ; Sharon Wynn Instructions Additional Instructions / Restrictions: 1. Please call the [facility] at [phone] to have further neurocognitive testing after discharge as I do suspect there is some underlying dementia 2. Would recommend establishing with a primary care physician to be seen as soon as possible as a new patient. 3. Would recommend dosing Risperdal at 6 or 7 PM to help with sundowning issues Discharge Orders/Prescriptions Prescriptions: New ciprofloxacin HCl 250 mg Tablet 250 mg PO BID Qty: 3 0RF digoxin 125 mcg (0.125 mg) Tablet 125 mcg PO DAILY Qty: 30 0RF diltiazem HCl 180 mg Capsule,Extended Release 24hr 180 mg PO Q12 Qty: 60 0RF Jardiance 10 mg Tablet 10 mg PO DAILY Qty: 30 0RF metoprolol tartrate 50 mg Tablet 50 mg PO BID Qty: 60 0RF risperidone 1 mg Tablet 1 mg PO QHS Qty: 30 0RF furosemide 20 mg Tablet 20 mg PO DAILY Qty: 30 0RF Continued levothyroxine 25 mcg tablet 25 mcg PO QDAY metformin 500 mg tablet 500 mg PO BID insulin detemir U-100 100 unit/mL (3 mL) insulin pen 8 unit SC DAILY olmesartan 20 mg Tablet 10 mg PO DAILY rosuvastatin 10 mg Tablet 10 mg PO DAILY cyanocobalamin (vitamin B-12) [Vitamin B-12] 1,000 mcg Tablet 1,000 mcg PO DAILY Eliquis 5 mg tablet 5 mg PO BID Qty: 60 11RF Discontinued metoprolol tartrate 100 mg Tablet 150 mg PO BID furosemide 20 mg Tablet 20 mg PO BID diltiazem HCl 300 mg capsule,extended release 24hr 300 mg PO QDAY Qty: 90 3RF Other Ambulatory Orders: Cardiac Holter Monitor, 48 Hrs (Routine) Timeframe: 1 Day Facility: [facility] - Location: Cardiovascular Services Ordered By: Dr. Geeta Michaud Referrals / Follow Up: Sharon Wynn MD [Med Staff - Active Staff] - See Referral Note (Call on Sunday am 03/26/2023 for appt to be seen in 2 weeks) Care Physician,No Primary [Primary Care Provider] - Disposition Disposition (needs filled in before D/C Order can be placed): Home, Self Care Charges/Coding Visit Charges Inpatient E&M: 36723 Disch Hosp >30min
== END 2023-03-25 13:04 | disposition home or self-care (01) | DRG 308 ==
LOC: ED 20:19 → ICU 20:25 → PCU 03-21 11:58
PROVIDERS: Admitting Provider Hospitalist; Emergency Provider Emergency Medicine; Visit Provider Internal Medicine
DX: R00.1 Bradycardia, unspecified (principal); G92.8 Other toxic encephalopathy; I13.0 Hypertensive heart and chronic kidney disease with heart failure and stage 1 through stage 4 chronic kidney disease, or unspecified chronic kidney disease; F05 Delirium due to known physiological condition; N39.0 Urinary tract infection, site not specified; N17.9 Acute kidney failure, unspecified; I50.32 Chronic diastolic (congestive) heart failure; I27.29 Other secondary pulmonary hypertension; I05.2 Rheumatic mitral stenosis with insufficiency; E11.22 Type 2 diabetes mellitus with diabetic chronic kidney disease; B96.20 Unspecified Escherichia coli [E. coli] as the cause of diseases classified elsewhere; I49.5 Sick sinus syndrome; I48.19 Other persistent atrial fibrillation; Z79.4 Long term (current) use of insulin; N18.32 Chronic kidney disease, stage 3b; F03.90 Unspecified dementia, unspecified severity, without behavioral disturbance, psychotic disturbance, mood disturbance, and anxiety; E03.9 Hypothyroidism, unspecified; E78.5 Hyperlipidemia, unspecified; I08.0 Rheumatic disorders of both mitral and aortic valves; E87.6 Hypokalemia; I95.89 Other hypotension; R09.02 Hypoxemia; Z79.01 Long term (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 of 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; R55 Syncope and collapse; Z79.84 Long term (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 of oral hypoglycemic drugs; Z79.899 Other long term (current) drug therapy; Z87.891 Personal history of nicotine dependence; T46.1X5A Adverse effect of calcium-channel blockers, initial encounter; T44.7X5A Adverse effect of beta-adrenoreceptor antagonists, initial encounter; R00.0 Tachycardia, unspecified
CPT/HCPCS: 36415; 70553; 71045; 80048; 80076; 81001; 82962; 83735; 84100; 84443; 84484; 85025; 87086; 87088; 87186; 93005; 93306; 94762; 97110; 97116; 97162; 97166; 97802; 99285; A9575; J7040; J7050; Q9957; A4216; C8929; J0612

== ENCOUNTER → 2023-03-25 | Outpatient (CLI) | payer MEDICARE, OTHER, SELFPAY | END | disposition home or self-care (01) | LOC: CVS 11:46 | PROVIDERS: Visit Provider Internal Medicine Cardiovascular Disease | DX: Z00.00 Encounter for general adult medical examination without abnormal findings (principal) ==

== ENCOUNTER → 2023-04-12 | Outpatient (CLI) | payer MEDICARE, OTHER, SELFPAY ==
--- NOTE | 2023-04-13 09:10 | STRESSREP ---
Stress Test Report Date: 04/12/2023 Procedure: Pharmacologic stress nuclear imaging study Indications: CHF Consent: Per the patient Procedure: The patient underwent pharmacologic (Regadenoson 0.4mg ) evaluation with a peak heart rate of 81 beats per minute (55%predicted maximal heart rate) and a peak blood pressure of 134/66 mmHg. The baseline ECG demonstrated atrial fibrillation. The peak pharmacologic ECG demonstrated no ischemic change. There were no cardiac dysrhythmias pretest, during pharmacologic infusion, or recovery. There was no complaint of chest discomfort during pharmacologic infusion or recovery. The patient was injected with 11.9 millicuries of technetium 99m Cardiolite and subsequently rest SPECT Cardiolite nuclear imaging was obtained in the horizontal long, vertical long, and short axis views. The patient underwent pharmacologic (Regadenoson) evaluation. The patient was injected with 33.7 millicuries of technetium 99m Cardiolite and subsequently stress SPECT Cardiolite nuclear imaging was obtained in the horizontal long, vertical long, and short axis views. A gated Cardiolite study at peak stress was obtained. The examination was stopped secondary to completion of protocol. Rest and stress SPECT Cardiolite nuclear imaging status post realignment, normalization, and attenuation correction demonstrate small to moderate size anterior and apical reversible defect suggestive of ischemia. There is end systolic thickening and brightening. The gated Cardiolite study demonstrates myocardial thickening and inward wall motion. The reported LVEF is 69%. Impression: 1. Pharmacologic (Regadenoson) evaluation 2. Peak pharmacologic ECG with no ischemic change. 3. There were no cardiac dysrhythmias pretest, during pharmacologic infusion, or recovery. 5. Small to moderate size apical and anterior reversible perfusion defect suggestive of ischemia. 6. The gated Cardiolite study reports an LVEF of 69%. This note was generated with [employer] software. It may contain incorrect words, spelling, and punctuation that were not noted in checking the note before signing.
== END | disposition home or self-care (01) ==
LOC: CVS 06:08
PROVIDERS: PCP Family Medicine; Referring Provider Internal Medicine Cardiovascular Disease; Visit Provider Internal Medicine Cardiovascular Disease
DX: I50.32 Chronic diastolic (congestive) heart failure (principal); I49.5 Sick sinus syndrome; I51.89 Other ill-defined heart diseases; I34.0 Nonrheumatic mitral (valve) insufficiency
CPT/HCPCS: 78452; 93017; A9500; A4216; J2785

== ENCOUNTER → 2023-05-08 | Outpatient (CLI) | payer MEDICARE, OTHER, SELFPAY ==
[2023-05-08 18:01] LABS: Absolute Lymphocyte Count 1.98 X10^3/uL (0.83-4.51); Absolute Neutrophil Count 5.6 X10^3/uL (2.0-7.7); Basophil# 0.04 X10^3/uL; Basophil% 0.5 % (0-1); Eosinophil# 0.04 X10^3/uL; Eosinophils% 0.5 % (0-5); Hematocrit 39.5 % (37-47); Lymphocyte # 1.98 X10^3/ul (0.83-4.51); Lymphocyte % 22.7 % (19-41); Mean Corp Hgb Conc 32.9 g/dL (32-36); Mean Corpuscular Hgb 30.3 pg (27.0-32.0); Mean Corpuscular Volume 92.1 fL (81-99); Mean Platelet Vol. 9.5 fl (6.2-12.0); Monocyte# 0.99 X10^3/uL; Monocyte% 11.4 % (0-10); NRBC Flagged by Analyzer 0 % (0-5); Neutrophil # 5.64 X10^3/uL (2.7-7.7); Neutrophil % 64.6 % (47-70); Platelet Count 286 K/mm3 (150-450); RBC Distribution Width CV 15.6 % (11.6-14.6); RBC Distribution Width SD 52.6 fl (35.1-43.9); Red Blood Count 4.29 M/mm3 (4.2-5.4); White Blood Count 8.7 K/mm3 (4.4-11.0)
[2023-05-08 18:32] LABS: Vitamin B12 588 pg/mL (211-911)
[2023-05-08 18:44] LABS: ALB/GLOB Ratio 1.1 RATIO (0.9-2.4); AST(SGOT) 20 U/L (15-37); Alanine Aminotransfer ALT/SGPT 20 U/L (13-56); Alkaline Phosphatase 74 U/L (45-117); Anion Gap 11 (5-15); BUN 21 mg/dL (7-18); BUN/Creat Ratio 11.7 RATIO (10-20); Calcium,Total 9.4 mg/dL (8.5-10.1); Chloride 104 mmol/L (98-107); EST Glomerular Filtration Rate 29 mL/min (>60); Est Glom Filt Rate - Afr Amer 35 mL/min (>60); Globulin 3.8 g/dL (2.2-4.2); Glucose 122 mg/dL (74-106); Potassium 4.1 mmol/L (3.5-5.1); Protein, Total 7.8 g/dL (6.4-8.2); Sodium Level 137 mmol/L (136-145); Thyroid Stim Hormone (TSH) 3.91 uIU/mL (0.358-3.74)
== END | disposition home or self-care (01) ==
LOC: MFPLAB 16:42
PROVIDERS: Internal Medicine Cardiovascular Disease; PCP Family Medicine; Visit Provider Family Medicine
DX: R94.39 Abnormal result of other cardiovascular function study (principal); E11.8 Type 2 diabetes mellitus with unspecified complications; I51.89 Other ill-defined heart diseases; E53.8 Deficiency of other specified B group vitamins; R41.89 Other symptoms and signs involving cognitive functions and awareness; I44.7 Left bundle-branch block, unspecified
CPT/HCPCS: 36415; 80053; 82607; 82746; 83036; 84439; 84443; 85025

== ENCOUNTER 2023-05-24 08:32 | Day surgery (SDC) | payer MEDICARE, OTHER, SELFPAY ==
[2023-05-23 08:51] VITALS: BMI 25.0
[2023-05-23 14:40] LABS: International Normalized Ratio 1.1; Partial Thromboplast Time 28.7 Seconds (24.1-36.2); Prothrombin Time (Protime)PT. 13.7 SECONDS (11.7-14.9)
[2023-05-24 09:02] LABS: Anion Gap 7 (5-15); BUN 19 mg/dL (7-18); BUN/Creat Ratio 10.8 RATIO (10-20); Calcium,Total 9.6 mg/dL (8.5-10.1); Chloride 105 mmol/L (98-107); Creatinine, Serum 1.76 mg/dL (0.55-1.02); EST Glomerular Filtration Rate 30 mL/min (>60); Est Glom Filt Rate - Afr Amer 36 mL/min (>60); Estimated Creatinine Clearance 26.25 ml/min; Glucose 162 mg/dL (74-106); Potassium 3.9 mmol/L (3.5-5.1); Sodium Level 137 mmol/L (136-145)
--- NOTE | 2023-05-24 10:41 | CL.D_ITS ---
Patient Name: AMALIA CORRAL Study Date: 05/24/2023 Performing: Sharon Wynn MD Ht: 66 inches 167.64 cm : 1950 Wt: 155.01 lbs 70.31 kg Age: 72 Gender: female BSA: 1.79 PROCEDURE(S) PERFORMED DC02-(01974)C/COR CLINICAL PROFILE AND INDICATIONS Indications: Suspected CAD Heart Failure: None Stress/Imaging Stress Test w/SPECT MPI: Yes Result: Positive Intermediate RiskStress Test with SPECT MPI: Positive Intermediate Risk CAD Presentations: No Sxs, no angina. CONCLUSIONS 60% ostial LMCA 90% Prox LAd; 70% Mid LAD 50% Prox RCA; 80% Prox large RPLV RECOMMENDATIONS Surgery consult for coronary revascularization/possible mitral valve repair DESCRIPTION OF PROCEDURE The patient arrived to the procedure lab. The risks and benefits of the procedure as well as a full description of our services here and current unavailability of surgical backup were fully explained to the patient and/or their significant other prior to the catheterization. The Timeout was completed, verifying the correct patient and procedure. The patient's procedural site was prepped and draped in the usual fashion. Local anesthetic was given subcutaneously to right radial region with Lidocaine 2%. Using a modified Seldinger technique, arterial access was obtained via the right radial artery, a 6Fr sheath was inserted. Left Coronary Artery selective angiography was performed in multiple views using a 5 Fr. 4.0 [place] catheter. Right Coronary Artery selective angiography was then performed in multiple views using a 5 Fr. 4.0 [place] catheter.The arterial sheath was pulled and a TR Band was applied for hemostasis w/ 7ml air CORONARY ANGIOGRAPHY DOMINANCE: Right Dominant LEFT MAIN: Eccentric 60% Ostial lesion in Left Main LEFT ANTERIOR DESCENDING ARTERY: LAD: Calcified 90% Proximal lesion in LAD Tubular 70% Mid lesion in LAD CIRCUMFLEX ARTERY: Angiographically normal RIGHT CORONARY ARTERY: RCA: Tubular 50% Proximal lesion in RCA RPLS: Tubular 80% Mid lesion in RPL1 COMPLICATIONS No Complications PROCEDURE MEDICATIONS Versed 1 mg IV Fentanyl 50 mcg IV Baby Aspirin (81mg) 1 Tabs PO @ 05/24/2023 09:29:44 Heparin given IA 05/24/2023 10:13:23 IV Fluids: .9 NaCl IV started @ 100 ml/hr 05/24/2023 09:29:32 SUMMARY OF HEMODYNAMIC DATA Time AIR REST ECG 09:26:53 ECG 10:13:59 AO 88/42 (64) SA 10:16:53 AO 94/54 (68) 10:17:18 AIR REST 10:36:18 Signed By Sharon Wynn MD On 05/24/2023 10:41:21 Sharon Wynn MD
== END 2023-05-24 14:30 | disposition home or self-care (01) ==
LOC: CLSP 08:33
PROVIDERS: PCP Family Medicine; Referring Provider Internal Medicine Cardiovascular Disease; Visit Provider Internal Medicine Cardiovascular Disease
DX: I25.9 Chronic ischemic heart disease, unspecified (principal); I50.32 Chronic diastolic (congestive) heart failure; I13.0 Hypertensive heart and chronic kidney disease with heart failure and stage 1 through stage 4 chronic kidney disease, or unspecified chronic kidney disease; I48.19 Other persistent atrial fibrillation; I49.5 Sick sinus syndrome; Z79.84 Long term (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 of oral hypoglycemic drugs; Z79.890 Hormone replacement therapy; Z79.899 Other long term (current) drug therapy; N18.9 Chronic kidney disease, unspecified; E78.5 Hyperlipidemia, unspecified; E66.9 Obesity, unspecified; Z87.891 Personal history of nicotine dependence; R94.30 Abnormal result of cardiovascular function study, unspecified; Z79.01 Long term (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 of 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; I34.0 Nonrheumatic mitral (valve) insufficiency
CPT/HCPCS: 36415; 80048; 85610; 85730; 93454; 99152; 99153; J7040; Q9967; C1769; C1894

== ENCOUNTER → 2023-05-25 | Outpatient (CLI) | payer MEDICARE, OTHER, SELFPAY ==
[2023-05-25 11:27] LABS: Anion Gap 6 (5-15); BUN 16 mg/dL (7-18); BUN/Creat Ratio 9.7 RATIO (10-20); Calcium,Total 9.1 mg/dL (8.5-10.1); Chloride 107 mmol/L (98-107); Creatinine, Serum 1.65 mg/dL (0.55-1.02); EST Glomerular Filtration Rate 32 mL/min (>60); Est Glom Filt Rate - Afr Amer 39 mL/min (>60); Glucose 284 mg/dL (74-106); Potassium 3.7 mmol/L (3.5-5.1); Sodium Level 137 mmol/L (136-145)
== END | disposition home or self-care (01) ==
LOC: LAB 10:14
PROVIDERS: PCP Family Medicine; Referring Provider Internal Medicine Cardiovascular Disease; Visit Provider Internal Medicine Cardiovascular Disease
DX: R79.89 Other specified abnormal findings of blood chemistry (principal); I50.32 Chronic diastolic (congestive) heart failure; I11.0 Hypertensive heart disease with heart failure
CPT/HCPCS: 36415; 80048

== ENCOUNTER 2023-05-28 21:24 | Emergency (ER) | payer MEDICARE, OTHER, SELFPAY ==
[2023-05-28 21:25] VITALS: BP 117/66; PULSE 74; RESP 18; TEMP 36.6; O2SAT 98
--- NOTE | 2023-05-28 21:33 | EKG12_ITS ---
Test Reason : CP Blood Pressure : / mmHG Vent. Rate : 078 BPM Atrial Rate : 000 BPM P-R Int : 000 ms QRS Dur : 122 ms QT Int : 376 ms P-R-T Axes : 000 -46 137 degrees QTc Int : 428 ms Atrial fibrillation Left anterior fascicular block Minimal voltage criteria for LVH, may be normal variant ( Calhan product ) Septal infarct , age undetermined ST & T wave abnormality, consider lateral ischemia Abnormal ECG Confirmed by BEBETO VALLE, WESLEY ([id number]), purchase request editor JOE AVENDAÑO ([id number]) on 06/21/2023 2:25:09 PM Referred By: Confirmed By:BRITNEY TATE MD
--- NOTE | 2023-05-28 21:35 | RAD_ITS ---
EXAM: XR CHEST, 1 VIEW CLINICAL INDICATION: chest pain TECHNIQUE: Frontal view of the chest. COMPARISON: Single view chest 03/19/2023 FINDINGS: LUNGS AND PLEURAL SPACES: Unremarkable. No consolidation or edema. No pneumothorax. No effusion. HEART: Unremarkable. Cardiac silhouette not enlarged. MEDIASTINUM: Central airways and mediastinal contour are unremarkable. BONES/JOINTS: Unremarkable. SOFT TISSUES: Unremarkable. RAD/Chest 1 View (Portable) IMPRESSION: No radiographic evidence of acute cardiopulmonary disease. Electronically Signed: Gordon Tovar MD at 21:46 EDT ,
[2023-05-28 21:46] LABS: Absolute Lymphocyte Count 0.91 X10^3/uL (0.83-4.51); Absolute Neutrophil Count 12.2 X10^3/uL (2.0-7.7); Basophil# 0.03 X10^3/uL; Basophil% 0.2 % (0-1); Eosinophil# 0.07 X10^3/uL; Eosinophils% 0.5 % (0-5); Hematocrit 44.5 % (37-47); Hemoglobin 14.6 g/dL (12.0-15.0); Lymphocyte # 0.91 X10^3/ul (0.83-4.51); Lymphocyte % 6.4 % (19-41); Mean Corp Hgb Conc 32.8 g/dL (32-36); Mean Corpuscular Hgb 30.8 pg (27.0-32.0); Mean Corpuscular Volume 93.9 fL (81-99); Mean Platelet Vol. 9.2 fl (6.2-12.0); Monocyte# 1.01 X10^3/uL; Monocyte% 7.1 % (0-10); NRBC Flagged by Analyzer 0 % (0-5); Neutrophil # 12.23 X10^3/uL (2.7-7.7); Neutrophil % 85.4 % (47-70); Platelet Count 255 K/mm3 (150-450); RBC Distribution Width CV 15.6 % (11.6-14.6); RBC Distribution Width SD 53.6 fl (35.1-43.9); Red Blood Count 4.74 M/mm3 (4.2-5.4); White Blood Count 14.3 K/mm3 (4.4-11.0)
[2023-05-28 22:08] LABS: Anion Gap 9 (5-15); BUN 18 mg/dL (7-18); BUN/Creat Ratio 10.3 RATIO (10-20); Calcium,Total 9.8 mg/dL (8.5-10.1); Chloride 105 mmol/L (98-107); Creatinine, Serum 1.75 mg/dL (0.55-1.02); EST Glomerular Filtration Rate 30 mL/min (>60); Est Glom Filt Rate - Afr Amer 37 mL/min (>60); Glucose 190 mg/dL (74-106); Potassium 4.1 mmol/L (3.5-5.1); Sodium Level 140 mmol/L (136-145); Troponin-I HS (w/2H Reflex) 33 pg/mL (3.0-54.0)
[2023-05-28 22:13] VITALS: BMI 24.4
--- NOTE | 2023-05-28 22:22 | EDS_ITS ---
HPI History of Present Illness Chief Complaint: Chest Pain Informant: patient Onset/Context/Timing Onset: Today Activity at onset: gradual Timing: Waxes and wanes Quality: Positive for Heaviness Location: Right Chest Current Severity: Mild Maximum Severity: Moderate Narrative Narrative: Patient presents secondary to right-sided chest pain with nausea and vomiting. Symptoms started this afternoon and were gradual in onset. No fever or chills. No diarrhea. Patient was recently seen on May 24 for a heart cath. At that time she was found to have a 90% proximal LAD lesion and a 70% mid LAD lesion. There are other blockages including an 80% proximal large RPLV lesion. Patient was referred to cardiovascular surgery at [facility] and has an appointment in June. We received a phone call from the roof painter here in town stating the patient was coming back into the emergency room. They recommended work-up and transfer to [facility] if at all possible given her current symptoms. [facility] Medical History Chronic diastolic (congestive) heart failure Chronic kidney disease (CKD) Diastolic dysfunction without heart failure Essential (primary) hypertension Hyperlipidemia Incomplete left bundle branch block (LBBB) Left ventricular systolic dysfunction (LVSD) Mitral regurgitation Nonrheumatic mitral valve stenosis with insufficiency Nonrheumatic tricuspid (valve) insufficiency Obesity Persistent atrial fibrillation Secondary pulmonary arterial hypertension Sick sinus syndrome Type 2 diabetes mellitus Home Medications insulin detemir U-100 100 unit/mL (3 mL) subcutaneous pen 8 unit subcut DAILY 03/26/18 [History Last Taken Unknown] metformin 500 mg tablet 500 mg PO BID 03/26/18 [History Last Taken 05/22/23] cyanocobalamin (vitamin B-12) 1,000 mcg tablet (Vitamin B-12) 1,000 mcg PO DAILY 03/19/23 [History Last Taken Unknown] apixaban 5 mg tablet (Eliquis) 5 mg PO BID #60 tabs 03/28/23 [Rx Last Taken 05/21/23] levothyroxine 25 mcg tablet 25 mcg PO QDAY #90 tabs 04/09/23 [Rx Last Taken 05/24/23] rosuvastatin 10 mg tablet 10 mg PO DAILY #90 tabs 04/09/23 [Rx Last Taken Unknown] digoxin 125 mcg (0.125 mg) tablet 125 mcg PO DAILY #90 tabs 04/18/23 [Rx Last Taken 05/24/23] diltiazem HCl 180 mg capsule,extended release 24 hr 180 mg PO Q12 #180 caps 04/18/23 [Rx Last Taken 05/24/23] furosemide 20 mg tablet 20 mg PO DAILY #90 tabs 04/18/23 [Rx Last Taken Unknown] metoprolol tartrate 50 mg tablet 50 mg PO BID #180 tabs 04/18/23 [Rx Last Taken 05/24/23] olmesartan 20 mg tablet 10 mg (1/2 x 20 mg) PO DAILY #90 tabs 04/18/23 [Rx Last Taken Unknown] risperidone 1 mg tablet 1 mg PO QHS 05/07/23 [History Last Taken Unknown] Allergy/AdvReac Type Severity Reaction Status Date / Time MARCO Inhibitors AdvReac Cough Verified 05/07/23 14:12 Family History Mother CAD (coronary artery disease) Brother , Age 65 [place] CAD (coronary artery disease) Atrial fibrillation Myocardial infarction Father , in MVA No problems noted. Surgical History History of cholecystectomy Hx of cardiac catheterization (~05/24/23) S/P ALY (total abdominal hysterectomy) Social History Smoking Status: Former smoker how long ago did patient quit smoking: greater than 20 years alcohol intake: never substance use type: does not use caffeine: Yes Type: coffee Number of servings: 1 ROS ROS ED Constitutional Constitutional ED: Denies chills or fever(s) Eyes Eyes: Denies change in vision ENT ENT ED: Denies rhinorrhea or sore throat Cardiovascular Cardiovascular: Reports chest pain; Denies palpitations Respiratory/Chest Respiratory/Chest: Denies cough or dyspnea Gastrointestinal Gastrointestinal: Reports nausea and vomiting; Denies abdominal pain or diarrhea Genitourinary Genitourinary ED: Denies dysuria Musculoskeletal Musculoskeletal: Denies back pain or extremity pain Integumentary Denies Abrasions or rash Neurologic Neurologic: Denies headache(s) Psychiatric Psychiatric: Denies anxiety or depression Allergic/Immunologic Allergic/Immunologic ED: Denies lip swelling or urticaria EXAM Physical Exam Const Vital Signs: 05/28/23 21:25 05/28/23 22:11 05/28/23 22:39 Temperature 97.9 F Temperature Source Temporal Pulse Rate 74 74 Respiratory Rate 18 21 H Blood Pressure 117/66 115/91 H Blood Pressure Mean 83 99 Pulse Ox 98 96 Oxygen Delivery Method Room Air Room Air Room Air 05/28/23 23:00 05/29/23 00:00 Temperature Temperature Source Pulse Rate 69 77 Respiratory Rate 24 H 19 H Blood Pressure 116/60 120/83 H Blood Pressure Mean 77 94 Pulse Ox 96 98 Oxygen Delivery Method Positive well nourished and well developed General Appearance ED: well developed HEENT Reports normocephalic and head/scalp atraumatic Eyes PERRL and EOMs intact bilaterally Neck supple Chest Wall inspection of chest normal and palpation of chest normal Resp normal respiratory effort and clear to auscultation bilaterally Cardio regular rate and regular rhythm GI GI Narrative: Abdomen soft and nontender. Hypoactive bowel sounds. Palpation: soft Extremity normal to inspection Neuro oriented x3 and no sensory deficits noted Sensorium / Orientation: alert Motor Exam: strength 5/5 throughout Psych mental status grossly normal Skin no rashes or lesions noted Heart Score History: Moderately Suspicious ECG: Normal Age: >/= 65 years Risk Factors: >/= 3 Risk Factors or History of CAD Troponin: </= Normal Limit Score: 5 MDM MDM MDM Narrative Medical decision making narrative: Labs and x-ray initiated via nursing protocol. History & Record Review Discussion w/independent historian: Patient and Family Additional record(s) reviewed:: Prior outpatient record and Prior labs Lab Data Attestation: I reviewed the patient's lab results. Labs: Laboratory Results - last 24 hr 05/28/23 05/28/23 21:37 23:57 WBC 14.3 H RBC 4.74 Hgb 14.6 Hct 44.5 MCV 93.9 MCH 30.8 MCHC 32.8 RDW Std Deviation 53.6 H RDW Coeff of [place] 15.6 H Plt Count 255 MPV 9.2 Immature Gran % (Auto) 0.400 Neut % (Auto) 85.4 H Lymph % (Auto) 6.4 L [place] % (Auto) 7.1 Eos % (Auto) 0.5 Baso % (Auto) 0.2 Absolute Neuts (auto) 12.2 H Absolute Lymphs (auto) 0.91 Nucleated RBC % 0 Sodium 140 Potassium 4.1 Chloride 105 Carbon Dioxide 26.0 Anion Gap 9 BUN 18 Creatinine 1.75 H Est GFR (MDRD) Af Amer 37 L Est GFR (MDRD) Non-Af 30 L BUN/Creatinine Ratio 10.3 Glucose 190 H Calcium 9.8 Troponin I High Sens 33 25 Radiography Chest X-Ray - ED: 1 View, Read by ED Physician, Normal, Heart, Lungs and Mediastinum Diagnostic Testing: Clinical Impression(s) from Imaging Studies Chest X-Ray 05/28/23 21:35 IMPRESSION: No radiographic evidence of acute cardiopulmonary disease. Electronically Signed: Gordon Tovar MD at 21:46 EDT , EKG Initial EKG: Attestation: I personally reviewed and interpreted this EKG as follows: Interpretation: Atrial Fibrillation (Atrial fibrillation at 78 bpm. Left anterior fascicular block. No significant ST change no significant change when compared to prior study.) Treatment and Re-Evaluation :: At the time of my examination patient is ordered Zofran and IV fluids. Labwork is already returned and is reviewed. White count is elevated at 14.3 with 85% neutrophils. This may be from her vomiting. Chemistry studies significant for creatinine 1.75 which appears consistent with her baseline. Glucose is 190. Troponin is normal at 33. Call was placed to [facility]. They are only excepting transfers that require ICU level of care at this time. This was discussed with patient and family at bedside. They are comfortable with any facility capable of caring for the patient. I spoke with Ashia Dyer patient has been accepted to the cafeteria monitor floor. Repeat troponin is 25. On repeat evaluation patient feels improved and has been stable during her ED observation time. Discharge Plan Triage Chief Complaint: Chest Pain ED Provider: Sanam Stubbs Dx/Rx/DC Orders Clinical Impression: Coronary artery disease, Chest pain Prescriptions: No Action metformin 500 mg tablet 500 mg PO BID levothyroxine 25 mcg tablet 25 mcg PO QDAY Qty: 90 3RF rosuvastatin 10 mg tablet 10 mg PO DAILY Qty: 90 3RF risperidone 1 mg tablet 1 mg PO QHS insulin detemir U-100 100 unit/mL (3 mL) insulin pen 8 unit SC DAILY cyanocobalamin (vitamin B-12) [Vitamin B-12] 1,000 mcg Tablet 1,000 mcg PO DAILY Eliquis 5 mg tablet 5 mg PO BID Qty: 60 11RF digoxin 125 mcg (0.125 mg) tablet 125 mcg PO DAILY Qty: 90 3RF diltiazem HCl 180 mg capsule,extended release 24hr 180 mg PO Q12 Qty: 180 3RF furosemide 20 mg tablet 20 mg PO DAILY Qty: 90 3RF metoprolol tartrate 50 mg tablet 50 mg PO BID Qty: 180 3RF olmesartan 20 mg tablet 10 mg PO DAILY Qty: 90 3RF Primary Care Provider: Cuong Patel Referrals: Cuong Patel MD [Primary Care Provider] - Disposition Disposition: Acute Care Hospital Discharge Location: [facility]
[2023-05-28] MEDS: Ondansetron 4 MG/2 ML Vial IV (22:35)
[2023-05-28] MEDS: 0.9% Normal Saline 1,000 ML 150 ML IV (22:38)
[2023-05-28 22:39] VITALS: BP 115/91; PULSE 74; RESP 21; O2SAT 96
[2023-05-28 23:00] VITALS: BP 116/60; PULSE 69; RESP 24; O2SAT 96
[2023-05-28 23:43] LABS: Reflex Troponin-HS? (from REC) Y
[2023-05-29] VITALS: BP 120/83; PULSE 77; RESP 19; O2SAT 98
[2023-05-29 00:33] LABS: Troponin-I HS 25 pg/mL (3.0-54.0)
[2023-05-29 01:00] VITALS: BP 121/67; PULSE 70; RESP 29; O2SAT 97
--- NOTE | 2023-05-29 01:36 | ED.RN ---
[facility] called and gave bed assignment. transport called [id number] daughter called and updated on condition at this time
[2023-05-29 03:08] VITALS: BP 133/62; PULSE 77; RESP 25; O2SAT 98
[2023-05-29 05:42] LABS: Troponin-I HS 28 pg/mL (3.0-54.0)
[2023-05-29 06:10] VITALS: BP 113/81; PULSE 107; RESP 25; TEMP 36.6; O2SAT 98
[2023-05-29] MEDS: dilTIAZem CD 180 MG Capsule PO (07:07)
[2023-05-29] MEDS: Metoprolol Tartrate 25 MG Tablet 50 MG PO (07:07)
[2023-05-29 07:10] VITALS: BP 156/94; PULSE 88; RESP 17; O2SAT 98
== END 2023-05-29 07:18 | disposition short-term general hospital (02) ==
PROVIDERS: Emergency Provider Emergency Medicine; PCP Family Medicine; Visit Provider Emergency Medicine
DX: R07.89 Other chest pain (principal); I13.0 Hypertensive heart and chronic kidney disease with heart failure and stage 1 through stage 4 chronic kidney disease, or unspecified chronic kidney disease; I50.32 Chronic diastolic (congestive) heart failure; I27.21 Secondary pulmonary arterial hypertension; E11.22 Type 2 diabetes mellitus with diabetic chronic kidney disease; I48.19 Other persistent atrial fibrillation; Z79.4 Long term (current) use of insulin; N18.9 Chronic kidney disease, unspecified; Z87.891 Personal history of nicotine dependence; R11.2 Nausea with vomiting, unspecified; I25.10 Atherosclerotic heart disease of native coronary artery without angina pectoris; E78.5 Hyperlipidemia, unspecified; Z79.899 Other long term (current) drug therapy; Z79.01 Long term (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 of 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
CPT/HCPCS: 71045; 80048; 84484; 85025; 93005; 96361; 96374; 99284; J7030; A4216; J2405

== ENCOUNTER → 2023-06-19 | Outpatient (CLI) | payer MEDICARE, OTHER, SELFPAY ==
--- NOTE | 2023-06-19 10:11 | CR.ITP_ITS ---
Diagnosis General Information Admitting Diagnosis: PTCA, PCI w/coronary stenting Non-STEMI Secondary Diagnosis: Hypertension, hyperlipidemia, diabetes type II Personal Learning Style:: Audio/Visual and Written Barriers to Learning: Vision Impairment Stage of change r/t lifestyle modifications:: Action Gave educational material for:: Treating Heart Disease, How The Heart Works, What it means to have Heart Disease, How Coronary Artery Disease is Diagnosed, Heart Procedures, What Heart Medications Do, Risk Factors & Modifications, Living an Active Life, Nutrition, Emotions & Heart Disease, Stress Management & Relaxation and Sleep Disorders & Heart Disease Education/Goals Individual Counseling: Initial Assessment: Abnormal Cholesterol Levels, High Blo od Pressure, Diabetes and Sedentary Lifestyle Cardiac Rehabilitation Goals Personal Goals: Initial Assessment: Improve management of stress and emotions, Improve energy level, Participate in home exercise program, Improve muscle strength and endurance, Improve diet and eating habits (eat healthier) and Control risk factors (learn risk factor modification) Scale for measuring improvement of personal goals Diagnosis & Disease Process Outcomes/Goals: Pt IDs own risk factors & lifestyle modifications by Session 10, Verbalizes symptoms of angina & response by session 3. and Pt independently manages Plan/Interventions: Assist Pt to ID & engage in lifestyle modification to reduce CVD risk, Instruct on individual risk factors, Review symptoms of angina & emergency actions and Review secondary diagnosis & identify educational needs. Safety Referral to Physical Therapy: No Referral to [facility] Case Management: No Fall Risk Assessed:: Yes Assistive Devices:: Walker (assistance with ambulation) Exercise - Initial Assessment Visit Date of Eval: 06/19/23 Session #:: 0 (Pre-cardiac rehab evaluation) Mets: Pre-: >5 METS for 30 minutes by discharge Physician Prescribed Exercise Modalities: Treadmill, Airdyne, NuStep and SciFit Frequency: 3x/week for 12 weeks [36 sessions] Intensity: 60-80% of age predicted maximum heart rate reserve Duration: 30 - 45 minutes METs - Progression 0.5-1.0 weekly:: 3.0 Target Heart Rate:: 88-110 Resting Blood Pressure: 113/68 EKG Type: Persistent atrail fibrillation Current Physical Activity or Exercising minutes: < 1 hour Outcomes & Goals Goals:: Verbalizes understanding of THR, RPE & goal METS by session 6, Documents in home exercise log/reports 30 min aerobic 5 day/wk by DC and Demonstrates accurate pulse taking by DC Intervention & Plan Exercise Program Goals: Instruct on personal THR & RPE, Instruct on MET level & personal MET goal, Show patient to take own pulse /validate performance until accurate and Instruct on home exercise Physical Activity Home Exercise Physical Activity - Home Exercise: Safe Exercise, Warm-up, Self-monitoring, Cool-Down, Home Exercise > 30 min Daily and Sitting Time <3 hours/daily Outcomes & Goals Outcomes/Goals: Demonstrates correct Warm-up/exercise Cool-Down (S3) if = 2.5 METs, Verbalizes symptoms of exercise intolerance by Session 3 (S3) and Demonstrate safe equipment use (S3) & follows exercise prescrition (6) Intervention & Plan Plan/Intervention: Instruct warm-up & cool-down if exercising at > 2 METs, Instruct on symptoms of exercise intolerance & actions to take, Instruct & monitor on saf and Assess intial functional capacity & safety risk Nutrition - Initial Assessment Program Goals Nutrition Program Goals Patient has diagnosis of Hyperlipidemia (ICD E78)?: Yes Visit Date of Eval: 06/19/23 Session #:: 0 (Pre-program evaluation) Cholesterol/Lipids (Other Core Measures) Determine presence & major risk factors that modify LDL goal: Hypertension or hypertensive medication, Family history of premature CHD in Male < 55 years: female <65 yearsFa and Age men > 45 years; women >/= 55 years Outcomes/Goals: Pt IDs own risk factors & lifestyle modifications by Session 10, Verbalizes symptoms of angina & response by session 3. and Pt independently manages Intervention/Plan: Instruct on personal lipid levels & lipid goals/NCEP guidelines and Instruct on cholesterol Referral to dietitian:: Yes Diabetes (Other Core Measures) Diabetes Type: Diagnosis Type II ICD-10 E11 Fasting blood glucose:: 190 Insulin dependent injection/pump?: Yes Non-Insulin Dependent?: Yes Do you monitor your blood sugar at home?: Yes Referral to Diabetic Clinic:: Yes Outcomes/Goals:: Able to state symptoms of, Able to state and Able to state Intervention/Plan:: Instruct on, Refer to and Instruct on Weight Mgt (Other Care) Not Applicable: Yes Height: 5 ft 4 in Weight:: 157 lb BMI: 26.9 Diagnosis Overweight/Obesity BMI> 30% ICD-10 E66: No Diagnosis High BMI/Morbid Obesity BMI> 35% ICD-10 Z68: No Outcomes/Goals: Pt sets, maintains & shows weight loss goal & trend during rehab Intervention/Plan: Instruct on ideal BMI & set weight loss goal w/patient Healthy Eating Habits Will attend diet classes:: Yes Outcomes/Goals:: Consume diet rich in vegs,fruits,whole grain/high fiber,fish,lean meat and Limit sat/trans fats,cholesterol & added salts & sugars Intervention/Plan:: Assess current eating habits Education Gave educational materials for:: Signs & symptoms of hypoglycemia, Signs & symptoms of hyperglycemia, Relate diabetes to coronary artery disease and Healthy eating Core - Initial Assessment Visit Date of Eval: 06/19/23 Session #:: 0 (pre-program evaluation) Medication Compliance Preventative Medication(s):: Aspirin, Statin/lipid and Beta rajinder H/O mental health issues: depression, anxiety, or addiction?: No Doesn?t believe in the benefits of treatment?: No Believes medications are unnecessary or harmful?: No Expresses concern over the cost of medications?: No Outcomes/Goals: Verbalizes medications,desired effect & common side effects @ DC, Pt self-reports following medication regimen and Keeps card in wallet w/medications listed by DC Interventions/plans: Instruct on medication effects & side effects, Review medication list w/patient every two weeks and Instruct importance of taking meds as ordered & assist problem solving Tobacco Use Tobacco Use: Non-smoker Hypertension Hypertension Diagnosis:: Hypertension ICD-10 I10 Resting Blood Pressure:: 113/68 [employer] Hypertension Guidelines Outcomes/Goals: Able to verbalize/achieve optimal blood pressure <130/80 and Incorporates diet changes & exercise for blood pressure control by DC Interventions/plan: Instruct on optimal blood pressure, hypertension & medications and Instruct on effects of sodium, alcohol, stress, exercise &hypertension Tobacco Cessation Referral Individual Education/Counseling:: No Education Schedule Given:: Yes Psychosocial - Initial Assess VIsit Date of Eval: 06/19/23 Session #:: 0 (pre-program evaluation) Not Applicable: Yes History of previous Mental disease:: No Target Goals Target Goals Psychosocial Test Tool Used:: Soricimed QOL Cardiac and PHQ-9 Questionnaire phq-9 Severity Referral to Behavioral Health PS - Interventions: Yes: Attend Stress Management Classes and No: Referral to Behavioral Health if PHQ-9 score >9:, No: Referral to [facility] and No: Referral to Physician if PHQ-9 if score is 5-9: Outcomes/Goals: See list Psychosocial Outcomes/Goals:: ID's personal stressors & 2 strategies to manage stress by discharge Intervention/Plan: See List Interventions/Plan:: Assess stressors,coping strategies & signs of derpression on admission, Instruct/assist pt to develop coping & personal stress Mgt strategies, Instruct patient to recognize signs & symptoms of depression and Instruct patient to recog Patient Health Questionnaire PHQ-9 Screening Initial Assessment: 1. Little interest or pleasure in doing things: Not at all 2. Feeling down, depressed, or hopeless: Not at all 3. Trouble falling or staying asleep, or sleeping too much: More than half the days 4. Feeling tired or having little energy: More than half the days 5. Poor appetite or overeating: More than half the days 6. Feeling bad about yourself -- or that you are a failure or have let yourself or your family down: Several days 7. Trouble concentrating on things, such as reading the newspaper or watching television: Several days 8. Moving or speaking so slowly that other people could have noticed. Or the opposite - being so fidgety or restless that you have been moving around a lot more than usual: Not at all 9. Thoughts that you would be better off , or of hurting yourself in some way: Not at all How difficult have these problems made it for you to do your work, take care of things at home, or get along with other people?: Somewhat difficult Total Score: 8 CRISTHIAN-Q SV Test Statements CAD is a disease of the arteries in the heart: True Examples of risk factors for heart disease: True Angina is chest pain or discomfort: True The benefits of resistance training include: True Eating more meat and dairy products: False Anti-platelet medications such as aspirin are important: I Don't Know The only effective way to manage stress: True An exercise warm-up slowly increases heart rate: True Prepared, processed foods usually have high sodium: False Depression is common after a heart attack: True The statin medications lower cholesterol: True To control blood pressure, lower the amount of sodium: True If someone gets chest discomfort during walking: False Transfats are partially hydrogenated vegetable oils: True Sleep apnea that is not treated increases the risk: True To control cholesterol, one should become a vegetarian: False Someone knows if he/she is exercising at the right level: True Diabetes cannot be prevented with exercise & health eating: False Stress is a large risk for heart attack: True A diet that can help lower blood pressure is rich in: True Total Score Total Correct Responses: 15 Self-Efficacy 6-Item Scale Initial Assessment: We would like to know how confident you are in doing certain activities. Please select your confidence level for: Fatigue Select Number: 4 Physical Discomfort or Pain Select Number: 2 Emotional Distress Select Number: 4 Other Symptoms or Health Problems Select Number: 4 Different Tasks and Activities Select Number: 4 Medication Select Number: 8 Total Score:: 4 Nutrition Survey Nutrition Survey Instructions Scoring Instructions Nutrition Survey Initial: Have you lost >10 lbs over the past 2 months without trying?: Yes Are you following a special diet at home for diabetes, low fat, or low salt?: Yes Are you interested in meeting with a dietitian for help understanding your diet?: No Do you eat less than 3 meals a day?: Yes Do you eat fatty meats (elias, sausage, ribs, etc), fried foods, desserts, large amounts of salad dressings, margarine, butter, or cheese most days?: No Do you have food allergies? [Enter types in comment field]: No Do you eat in restaurants more than 3 times a week?: No Do you season food with salt, seasoning salt, or garlic salt?: Yes Do you used canned, boxed, frozen meals, or soups, seasoning packets?: Yes Total Score:: 5 Exercise - Final/Discharge Physician Prescribed Exercise Modalities: Treadmill, Airdyne, NuStep and SciFit Frequency: 3x/week for 12 weeks [36 sessions] Intensity: 60-80% of age predicted maximum heart rate reserve METs - Progression 0.5-1.0 weekly:: 3.0 Target Heart Rate:: 88-110 Nutrition - 30-Day Assessment Weight Mgt (Other Care) Height: 5 ft 4 in Weight:: 157 lb BMI: 26.9 Nutrition - 60-Day Assessment Weight Mgt (Other Care) Height: 5 ft 4 in Weight:: 157 lb BMI: 26.9 Core - 30-Day Assessment Visit Session #:: 0 (Pre-cardiac rehab evaluation) Core - Final Assessment Hypertension Resting Blood Pressure:: 113/68 [employer] Hypertension Guidelines Core - 60-Day Assessment Hypertension Resting Blood Pressure:: 113/68 [employer] Hypertension Guidelines Psychosocial - 30-Day Assess Target Goals Target Goals Referral to Behavioral Health PS - Interventions: Yes: Attend Stress Management Classes and No: Referral to Behavioral Health if PHQ-9 score >9:, No: Referral to [facility] and No: Referral to Physician if PHQ-9 if score is 5-9: Psychosocial - 60-Day Assess Target Goals Target Goals Referral to Behavioral Health PS - Interventions: Yes: Attend Stress Management Classes and No: Referral to Behavioral Health if PHQ-9 score >9:, No: Referral to [facility] and No: Referral to Physician if PHQ-9 if score is 5-9: Psychosocial - 90-Day Assess Target Goals Target Goals Referral to Behavioral Health PS - Interventions: Yes: Attend Stress Management Classes and No: Referral to Behavioral Health if PHQ-9 score >9:, No: Referral to [facility] and No: Referral to Physician if PHQ-9 if score is 5-9: Psychosocial - Final Assessmen Target Goals Target Goals Referral to Behavioral Health PS - Interventions: Yes: Attend Stress Management Classes and No: Referral to Behavioral Health if PHQ-9 score >9:, No: Referral to [facility] and No: Referral to Physician if PHQ-9 if score is 5-9: Nutrition - 90-Day Assessment Weight Mgt (Other Care) Height: 5 ft 4 in Weight:: 157 lb BMI: 26.9 Nutrition - Final Assessment Program Goals Patient has diagnosis of Hyperlipidemia (ICD E78)?: Yes Weight Mgt (Other Care) Height: 5 ft 4 in Weight:: 157 lb BMI: 26.9
--- NOTE | 2023-06-19 10:11 | CR.HP_ITS ---
CR - History & Physical General Arrival date:: 06/19/23 Arrival time:: 10:15 Date of Referral:: 06/01/23 Date of CR Evaluation:: 06/19/23 Referring Physician: Dr. Hughes Primary Diagnosis: NSTEMI, PCI w/coronary stenting angioplasty History of Present Cardiac Event Onset Date Acute Myocardial Infarction within 12 months:: Yes PTCA or coronary stenting:: Yes Vessel: LAD 90% blockage in the artery Type of Symptoms:: Weakness started around fathers day. Becoming more somber, bradycardia and changed medications. Sick sinus syndrome. Becoming more shortness of breath and weaker. Interventions with present event:: Stress test heart cath here at [facility] and was then transferred to [facility] Were there any complications?: none Medications Ambulatory Orders Medication Instructions Recorded insulin detemir U-100 100 unit/mL 8 unit subcut DAILY 03/26/18 (3 mL) subcutaneous pen metformin 500 mg tablet 1,000 mg PO BID 03/26/18 cyanocobalamin (vitamin B-12) 1,000 mcg PO DAILY 03/19/23 1,000 mcg tablet (Vitamin B-12) apixaban 5 mg tablet (Eliquis) 5 mg PO BID #60 tabs 03/28/23 levothyroxine 25 mcg tablet 25 mcg PO QDAY #90 tabs 04/09/23 digoxin 125 mcg (0.125 mg) tablet 125 mcg PO DAILY #90 tabs 04/18/23 furosemide 20 mg tablet 20 mg PO DAILY #90 tabs 04/18/23 clopidogrel 75 mg tablet 75 mg PO DAILY 06/19/23 metoprolol succinate 25 mg capsule 25 mg PO DAILY 06/19/23 sprinkle, ext. release 24 hr (Kapspargo Sprinkle) Allergies Allergies MARCO Inhibitors Adverse Reaction (Verified 05/07/23 14:12) Cough Sleep Disorder Evaluation Hx of Sleep Apnea: No Do you snore loudly (louder than talking or can be heard through closed doors)?: No Do you often feel tired/ fatigued/ sleepy during daytime?: Yes Has anyone observed you stop breathing during sleep?: No History of Hypertension (for STOP score): Yes STOP Results: Positive Advanced Directives Advanced Directives Power of Chair Pad Maker: Yes (Daughter is her POA healthcare) Living Will: Yes Advance Directives Information Provided: No Advance Directives on File: Yes DNR Order?:: No MOLST See MOLST form: No Past Medical History Covid-19 Screening Physicial Symptoms Fever: No Unexplained muscle aches: No Current respiratory symptoms: No Upper respiratory infections symptoms: No Gastro-intestinal symptoms: No Tto-Piox-Wgench symptoms: No Other Clinical Concerns Has tested positive for COVID-19 in last 30 days: No Exposure Risk Had contact w/person w/symptoms or Covid-19 (+) last 14 days: No Has High Risk Exposures ID'd by Health dept/Inf Control team: No Pertinent Comorbidities 65 years or older:: Yes Lives in Assisted Living facility:: No Has a chronic lung disease or moderate to severe asthma:: No Has a serious heart condition:: No Immunocompromised:: No Severely obese (Body Mass Index of 40 or higher):: No Diabetic:: Yes Has chronic kidney disease undergoing dialysis:: No Has liver disease:: No Past Medical Illness Medical History Chronic diastolic (congestive) heart failure Chronic kidney disease (CKD) Diastolic dysfunction without heart failure Essential (primary) hypertension Hyperlipidemia Incomplete left bundle branch block (LBBB) Left ventricular systolic dysfunction (LVSD) Mitral regurgitation Nonrheumatic mitral valve stenosis with insufficiency Nonrheumatic tricuspid (valve) insufficiency Obesity Persistent atrial fibrillation Secondary pulmonary arterial hypertension Sick sinus syndrome Type 2 diabetes mellitus Past Surgical History Surgical History History of cholecystectomy Hx of cardiac catheterization (~05/24/23) S/P ALY (total abdominal hysterectomy) Surgical History: cholecystectomy and hysterectomy Family History Summary Family History Mother CAD (coronary artery disease) Brother , Age 65 [place] CAD (coronary artery disease) Atrial fibrillation Myocardial infarction Father , in MVA No problems noted. 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 Hobbies, Recreation, Social Activities Hobbies: Sewing and Other (baking) Recreational Activities: I am able to engage in all my recreational activities, I am able to engage in most, but not all activities, I am able to engage in a few activities, I can hardly do any recreational activities and I cannot do any recreational activities at all Social Environment Status Marital Status: Current Living Arrangements Living Environment:: Family and Spouse Children How many children do you have?: 3 Do any of your children live nearby?: Yes Safety Do you feel safe in your surroundings?: Yes Assistance Do you need any assistance at home?: uses a walker for assistance with ambulation Review of Systems Review of Systems Hints Review of Present Symptoms: Reports Shortness of Breath with Exertion, Angina (discomfort in chest area, nothing that would require nitro), Fatigue, Heart Arrhythmia/Irregularities ( atrial fibrillation) and Appetite - Special Diet (Diabetic Type II); Denies Shortness of Breath at Rest, Operative Discomfort, Dizziness/Lightheadedness or Appetite - Normal (loss of appetite been occurring since mid March ) Pain Is Patient Pain Free?: No Pain Location: back (occurs more when walking from arthritis in the lower back.) Pain Level: 10 Risk Factor Assessment Vital Signs Temperature: 98.8 F Respiratory Rate: 14 Pulse Ox: 95 Blood Pressure: 113/68 Nailbeds:: pink good refill Pulse Pulse Rate: 78 Pulse Rhythm: Regular Hypertension On medication(s)?: yes Blood Pressure Sitting - Right Arm: 113/68 Diabetes Diabetic History: Type II Nutrition Referral for Diabetes: Yes Obesity Height: 5 ft 7 in Weight:: 157 lb Weight in Pounds: 157.0 lbs Weight Source: Stated by Patient Body Mass Index (BMI): 24.5 Nutritional Referral for Obesity: No Physical Inactivity Physical Inactivity: None Risk Stratification Risk Guidelines: Lowest Risk: Risk Factor for Smoking, Risk Factor for Obesity, Risk Factor for Hypertension and Risk Factor for Depression, Moderate Risk: Risk Factor for Sedentary Lifestyle (Moderate to high risk) and Highest Risk: Risk Factor for Diabetes (Glucose 190) and Risk Factor for Sedentary Lifestyle (Moderate to high risk) For Smoking Smoking Risk Guidelines For Dyslipidemia Dyslipidemia Risk Guidelines For Diabetes Mellitus Diabetes Risk Guidelines For Obesity/Overweight Obesity/Overweight Risk Guidelines For Hypertension Hypertension Risk Guidelines For Sedentary Lifestyle Sedentary Lifestyle Risk Guidelines For Depression Depression Risk Guidelines Family History Family History Mother CAD (coronary artery disease) Brother CAD (coronary artery disease) Atrial fibrillation Myocardial infarction Father No problems noted. Motivation Motivation to Participate On a scale of 1 to 10, how prepared are you to commit to attending program?: 6 What do you see as barriers to successfully being able to complete the program?: transportation inconvenience of daughter bringing her to What do you see as the benefits of succesfully completing the program? In other words, what do you hope to get out of participating in the program?: feel better, getting around better, being able to shop Are there issues you are dealing with that will interfere with completing the program?: no Do you have a spouse or signficant other, family or friends who will help support you to complete the program?: Yes
[2023-06-19 10:25] VITALS: BP 113/68; PULSE 78; RESP 14; TEMP 37.1; O2SAT 95; BMI 24.5
[2023-06-19 10:34] VITALS: BP 113/68; BMI 26.9
== END | disposition home or self-care (01) ==
LOC: CR 09:29
PROVIDERS: PCP Family Medicine; Referring Provider Internal Medicine Interventional Cardiology; Visit Provider Internal Medicine Interventional Cardiology
DX: Z95.5 Presence of coronary angioplasty implant and graft (principal); I21.4 Non-ST elevation (NSTEMI) myocardial infarction; I10 Essential (primary) hypertension

== ENCOUNTER 2023-06-20 09:23 | Emergency (ER) | payer MEDICARE, OTHER, SELFPAY ==
[2023-06-19 10:34] VITALS: BMI 26.9
[2023-06-20 09:24] VITALS: BP 93/59; PULSE 165; RESP 14; TEMP 36.4; O2SAT 100; BMI 25.2
--- NOTE | 2023-06-20 09:33 | EKG12_ITS ---
Test Reason : POSS A FIB Blood Pressure : / mmHG Vent. Rate : 158 BPM Atrial Rate : 000 BPM P-R Int : 000 ms QRS Dur : 110 ms QT Int : 252 ms P-R-T Axes : 000 -46 130 degrees QTc Int : 408 ms Critical Test Result: High HR Atrial fibrillation with rapid ventricular response Left anterior fascicular block Septal infarct , age undetermined ST & T wave abnormality, consider lateral ischemia Abnormal ECG Confirmed by RACQUEL VALLE, JUJU ([id number]), editor map JOE AVENDAÑO ([id number]) on 07/05/2023 1:55:49 PM Referred By: RU/TA Confirmed By:JUJU CLEMENT MD
--- NOTE | 2023-06-20 09:37 | EDS_ITS ---
HPI History of Present Illness Chief Complaint: Palpitations Detail of Chief Complaint: Tachycardia Informant: patient and family Narrative Narrative: Patient presents to the emergency department from cardiac rehab with concern for tachycardia. Patient is without symptoms and they noted that her heart rate was in the 160s so she was referred to the emergency department. Patient does have history of atrial fibrillation. Daughter tells me patient had 2 cardiac stents placed on June 01 at [facility]. When she came home they had taken her off her digoxin as well as her Cardizem and decrease her metoprolol. Patient denies chest pain or shortness of breath. Denies feeling lightheaded or dizzy. Patient currently on apixaban and 25 mg of metoprolol. Patient developed little bit of a cough this morning and a slight runny nose. [facility] Medical History Chronic diastolic (congestive) heart failure Chronic kidney disease (CKD) Diastolic dysfunction without heart failure Essential (primary) hypertension Hyperlipidemia Incomplete left bundle branch block (LBBB) Left ventricular systolic dysfunction (LVSD) Mitral regurgitation Nonrheumatic mitral valve stenosis with insufficiency Nonrheumatic tricuspid (valve) insufficiency Obesity Persistent atrial fibrillation Secondary pulmonary arterial hypertension Sick sinus syndrome Type 2 diabetes mellitus Home Medications insulin detemir U-100 100 unit/mL (3 mL) subcutaneous pen 8 unit subcut DAILY 03/26/18 [History Last Taken Unknown] metformin 500 mg tablet 1,000 mg PO BID 03/26/18 [History Last Taken 05/22/23] cyanocobalamin (vitamin B-12) 1,000 mcg tablet (Vitamin B-12) 1,000 mcg PO DAILY 03/19/23 [History Last Taken Unknown] apixaban 5 mg tablet (Eliquis) 5 mg PO BID #60 tabs 03/28/23 [Rx Last Taken 05/21/23] levothyroxine 25 mcg tablet 25 mcg PO QDAY #90 tabs 04/09/23 [Rx Last Taken 05/24/23] digoxin 125 mcg (0.125 mg) tablet 125 mcg PO DAILY #90 tabs 04/18/23 [Rx Last Taken 05/24/23] furosemide 20 mg tablet 20 mg PO DAILY #90 tabs 04/18/23 [Rx Last Taken Unknown] clopidogrel 75 mg tablet 75 mg PO DAILY 06/19/23 [History Last Taken Unknown] metoprolol succinate 25 mg capsule sprinkle, ext. release 24 hr (Kapspargo Sprinkle) 25 mg PO DAILY 06/19/23 [History Last Taken Unknown] diltiazem HCl 120 mg capsule,extended release 24 hr (Cardizem CD) 120 mg PO DAILY #30 caps 06/20/23 [Rx Last Taken Unknown] Allergy/AdvReac Type Severity Reaction Status Date / Time MARCO Inhibitors AdvReac Cough Verified 06/20/23 09:24 Family History Mother CAD (coronary artery disease) Brother , Age 65 [place] CAD (coronary artery disease) Atrial fibrillation Myocardial infarction Father , in MVA No problems noted. Surgical History History of cholecystectomy Hx of cardiac catheterization (~05/24/23) S/P ALY (total abdominal hysterectomy) Social History Smoking Status: Former smoker how long ago did patient quit smoking: greater than 20 years alcohol intake: never substance use type: does not use caffeine: Yes Type: coffee Number of servings: 1 ROS ROS ED Review of Systems ROS Unobtainable: other Constitutional Constitutional ED: Reports lethargy; Denies chills, fever(s), sweats or weight loss Eyes Eyes: Denies blurry vision, change in vision or diplopia ENT ENT ED: Denies rhinorrhea or sore throat Cardiovascular Cardiovascular: Reports racing heartbeat; Denies chest pain or orthopnea Respiratory/Chest Respiratory/Chest: Reports cough; Denies dyspnea, dyspnea on exertion, orthopnea or sputum Gastrointestinal Gastrointestinal: Denies abdominal pain, diarrhea, nausea or vomiting Genitourinary Genitourinary ED: Denies dysuria, hematuria or urinary frequency Musculoskeletal Musculoskeletal: Denies arthralgias, back pain, myalgias or neck pain Integumentary Denies abscess, Abrasions or rash Neurologic Neurologic: Denies headache(s) or weakness Psychiatric Psychiatric: Denies anxiety, depression or suicidal thoughts Endocrine Endocrinology: Denies polydipsia, polyphagia or polyuria Hematologic/Lymphatic Hematologic/Lymphatic: Denies easy bleeding, easy bruising or lymphadenopathy Allergic/Immunologic Allergic/Immunologic ED: Denies mouth swelling, tongue swelling or urticaria EXAM Physical Exam Const Vital Signs: 06/20/23 09:24 06/20/23 09:53 06/20/23 10:38 Temperature 97.6 F L Temperature Source Temporal Pulse Rate 165 H 109 H Respiratory Rate 14 16 Respiratory Effort Normal Non-Labored Blood Pressure 93/59 L 96/75 Blood Pressure Mean 70 Pulse Ox 100 98 Oxygen Delivery Method Room Air 06/20/23 11:04 Temperature Temperature Source Pulse Rate 107 H Respiratory Rate 18 Respiratory Effort Blood Pressure 94/61 Blood Pressure Mean 72 Pulse Ox 98 Oxygen Delivery Method Room Air Positive well nourished and well developed General Appearance ED: well developed and NAD HEENT Reports TM's clear and moist mucous membranes normocephalic and atraumatic; Negative for trauma or tenderness Tympanic Membrane ED: Yes TM's clear Eyes PERRL and EOMs intact bilaterally General Eye ED: Negative for pale conjunctiva or scleral icterus Neck no lymphadenopathy, supple and no JVD General: Negative for tenderness Chest Wall inspection of chest normal and palpation of chest normal Chest: Negative for tenderness Resp normal respiratory effort and clear to auscultation bilaterally Effort and Inspection: Negative for respiratory distress or pain with movement Auscultation: Negative for rhonchi, wheezes or diminished lung sounds Cardio S1 normal heart sound, S2 normal heart sound and no murmurs; Negative for regular rate or regular rhythm Rate: tachycardic Rhythm: abnormal rhythm irregularly irregular Peripheral Pulses: pulses 2+ throughout GI normal to inspection, nondistended, normoactive bowel sounds, soft to palpation, non-tender, non-distended and no masses Back/Spine no CVA tenderness and no thoracic nor lumbar tenderness Extremity normal to inspection General Extremety ED: Negative for edema General Extremity: Negative for edema Neuro oriented x3, CN's II-XII intact bilaterally, no sensory deficits noted and gait normal Sensorium / Orientation: awake, alert, oriented to person, oriented to place and oriented to time Motor Exam: strength 5/5 throughout and strength abnormal Psych mental status grossly normal Skin no rashes or lesions noted and no wounds MDM MDM MDM Narrative Medical decision making narrative: Patient presents with asymptomatic tachycardia from cardiac rehab. Known history of A-fib. Recent adjustments in her medications. Patient chronically in A-fib per her daughter. Patient on apixaban. IV line will be established. Patient will be placed on a retarder operator. I will give her 20 mg of Cardizem IV. Basic labs will be obtained. EKG obtained on arrival showed atrial fibrillation with a rate of [address] changes. After Cardizem patient heart rate in the 110's. Patient was ordered metoprolol IV. CBC with differential and chemistries unremarkable. Troponin was normal. I discussed case with cap jewel plate assembler on-call Dr. Farfan who recommended starting patient on Cardizem CD and having her follow-up with her cap jewel plate assembler next week. Patient and daughter comfortable with plan. She will be discharged to home Lab Data Attestation: I reviewed the patient's lab results. Labs: Laboratory Results - last 24 hr 06/20/23 09:40 WBC 9.3 RBC 3.30 L Hgb 10.7 L Hct 32.5 L MCV 98.5 MCH 32.4 H MCHC 32.9 RDW Std Deviation 54.8 H RDW Coeff of [place] 15.3 H Plt Count 371 MPV 8.9 Immature Gran % (Auto) 0.300 Neut % (Auto) 80.2 H Lymph % (Auto) 9.2 L [place] % (Auto) 9.3 Eos % (Auto) 0.6 Baso % (Auto) 0.4 Absolute Neuts (auto) 7.5 Absolute Lymphs (auto) 0.86 Nucleated RBC % 0 Sodium 135 L Potassium 4.3 Chloride 105 Carbon Dioxide 25.0 Anion Gap 5 BUN 21 H Creatinine 1.37 H Estim Creat Clear Calc 32.42 Est GFR (MDRD) Af Amer 48 L Est GFR (MDRD) Non-Af 40 L BUN/Creatinine Ratio 15.3 Glucose 137 H Calcium 9.4 Troponin I High Sens 25 Radiography Diagnostic Testing: Clinical Impression(s) from Imaging Studies Chest X-Ray 06/20/23 09:52 IMPRESSION: No acute amount is seen. Stable examination. Electronically Signed: Andrey Berry MD at 9:59 EDT , 1 view chest x-ray obtained interpreted by myself as no evidence of infiltrate or pneumothorax or acute disease process. EKG Initial EKG: Attestation: I personally reviewed and interpreted this EKG as follows: Comments: Atrial fibrillation with a rate of [address] changes Discharge Plan Triage Chief Complaint: Palpitations ED Provider: Jana Merino Dx/Rx/DC Orders Clinical Impression: Atrial fibrillation Instructions: ED AFIB Prescriptions: New diltiazem HCl [Cardizem CD] 120 mg capsule,extended release 24hr 120 mg PO DAILY Qty: 30 0RF No Action metformin 500 mg tablet 1,000 mg PO BID levothyroxine 25 mcg tablet 25 mcg PO QDAY Qty: 90 3RF insulin detemir U-100 100 unit/mL (3 mL) insulin pen 8 unit SC DAILY cyanocobalamin (vitamin B-12) [Vitamin B-12] 1,000 mcg Tablet 1,000 mcg PO DAILY clopidogrel 75 mg tablet 75 mg PO DAILY Kapspargo Sprinkle 25 mg capsule,sprinkle,ER 24hr 25 mg PO DAILY Eliquis 5 mg tablet 5 mg PO BID Qty: 60 11RF digoxin 125 mcg (0.125 mg) tablet 125 mcg PO DAILY Qty: 90 3RF furosemide 20 mg tablet 20 mg PO DAILY Qty: 90 3RF Primary Care Provider: Cuong Patel Referrals: Sharon Wynn MD [Med Staff - Active Staff] - 3-5 Days Cuong Patel MD [Primary Care Provider] - Disposition Disposition: Home, Self Care Discharge Date/Time: 06/20/23 11:26
[2023-06-20 09:49] LABS: Absolute Lymphocyte Count 0.86 X10^3/uL (0.83-4.51); Absolute Neutrophil Count 7.5 X10^3/uL (2.0-7.7); Basophil# 0.04 X10^3/uL; Basophil% 0.4 % (0-1); Eosinophil# 0.06 X10^3/uL; Eosinophils% 0.6 % (0-5); Hematocrit 32.5 % (37-47); Hemoglobin 10.7 g/dL (12.0-15.0); Lymphocyte # 0.86 X10^3/ul (0.83-4.51); Lymphocyte % 9.2 % (19-41); Mean Corp Hgb Conc 32.9 g/dL (32-36); Mean Corpuscular Hgb 32.4 pg (27.0-32.0); Mean Corpuscular Volume 98.5 fL (81-99); Mean Platelet Vol. 8.9 fl (6.2-12.0); Monocyte# 0.87 X10^3/uL; Monocyte% 9.3 % (0-10); NRBC Flagged by Analyzer 0 % (0-5); Neutrophil # 7.45 X10^3/uL (2.7-7.7); Neutrophil % 80.2 % (47-70); Platelet Count 371 K/mm3 (150-450); RBC Distribution Width CV 15.3 % (11.6-14.6); RBC Distribution Width SD 54.8 fl (35.1-43.9); White Blood Count 9.3 K/mm3 (4.4-11.0)
[2023-06-20] MEDS: 0.9% Normal Saline (1000mL) 1,000 ML 150 ML IV (09:50)
[2023-06-20] MEDS: dilTIAZem 25 MG/5 ML Vial 20 MG IV BOLUS (09:51)
--- NOTE | 2023-06-20 09:52 | RAD_ITS ---
STUDY: X-RAY CHEST REASON FOR EXAM: Female, 72 years old. Tachycardia TECHNIQUE: Single AP portable view of the chest. COMPARISON: Comparison is made with prior study May 28, 2023. FINDINGS: EKG electrodes are seen. Stable mild elevation of the right hemidiaphragm. The lungs are clear and expanded. There is no demonstrated pleural abnormality. Normal size heart. Normal mediastinum and nevaeh. Normal visualized pulmonary arteries. There is atherosclerotic calcification of the aortic arch with tortuosity. There are diffuse degenerative changes of the visualized thoracic spine. There is degenerative osteoarthritis of the bilateral shoulders. There is no demonstrated abnormality of the visualized soft tissue structures of the upper abdomen. RAD/Chest 1 View (Portable) IMPRESSION: No acute amount is seen. Stable examination. Electronically Signed: Andrey Berry MD at 9:59 EDT ,
[2023-06-20 10:06] LABS: Anion Gap 5 (5-15); BUN 21 mg/dL (7-18); BUN/Creat Ratio 15.3 RATIO (10-20); Calcium,Total 9.4 mg/dL (8.5-10.1); Chloride 105 mmol/L (98-107); Creatinine, Serum 1.37 mg/dL (0.55-1.02); EST Glomerular Filtration Rate 40 mL/min (>60); Est Glom Filt Rate - Afr Amer 48 mL/min (>60); Estimated Creatinine Clearance 32.42 ml/min; Glucose 137 mg/dL (74-106); Potassium 4.3 mmol/L (3.5-5.1); Sodium Level 135 mmol/L (136-145); Troponin-I HS 25 pg/mL (3.0-54.0)
[2023-06-20] MEDS: Metoprolol Tartrate 5 MG/5 ML Vial IV ×2 (10:17→10:55)
[2023-06-20] MEDS: 0.9% Normal Saline (500mL Bag) 500 ML 999 ML IV (10:20)
[2023-06-20 10:38] VITALS: BP 96/75; PULSE 109; RESP 16; O2SAT 98
[2023-06-20 11:04] VITALS: BP 94/61; PULSE 107; RESP 18; O2SAT 98
== END 2023-06-20 11:26 | disposition home or self-care (01) ==
PROVIDERS: Emergency Provider Emergency Medicine; PCP Family Medicine; Visit Provider Emergency Medicine
DX: I48.19 Other persistent atrial fibrillation (principal); I13.0 Hypertensive heart and chronic kidney disease with heart failure and stage 1 through stage 4 chronic kidney disease, or unspecified chronic kidney disease; I50.32 Chronic diastolic (congestive) heart failure; I27.21 Secondary pulmonary arterial hypertension; E11.22 Type 2 diabetes mellitus with diabetic chronic kidney disease; Z79.4 Long term (current) use of insulin; N18.9 Chronic kidney disease, unspecified; E78.5 Hyperlipidemia, unspecified; Z79.01 Long term (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 of 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; Z79.890 Hormone replacement therapy; Z79.899 Other long term (current) drug therapy; Z87.891 Personal history of nicotine dependence; Z95.5 Presence of coronary angioplasty implant and graft; Z79.02 Long term (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 of antithrombotics/antiplatelets
CPT/HCPCS: 71045; 80048; 84484; 85025; 93005; 96361; 96374; 99284; J7030; A4216

== ENCOUNTER 2023-07-02 05:35 | Outpatient (RCR) | payer MEDICARE, OTHER, SELFPAY ==
[2023-06-19 10:34] VITALS: BMI 26.9
== END 2023-07-31 23:59 ==
LOC: CR 05:35
PROVIDERS: PCP Family Medicine; Referring Provider Internal Medicine Interventional Cardiology; Visit Provider Internal Medicine Cardiovascular Disease
DX: Z95.5 Presence of coronary angioplasty implant and graft (principal)
CPT/HCPCS: 93798

== ENCOUNTER → 2023-07-11 | Outpatient (CLI) | payer MEDICARE, OTHER, SELFPAY ==
[2023-06-19 10:34] VITALS: BMI 26.9
[2023-07-11 11:11] LABS: Cholesterol 152 mg/dL (200); High Density Lipoprotein 49 mg/dL; Triglycerides 109 mg/dL; Very Low Density Lipoprotein 22 mg/dL (5-40)
== END | disposition home or self-care (01) ==
LOC: LAB 10:04
PROVIDERS: PCP Family Medicine; Referring Provider Internal Medicine Cardiovascular Disease; Visit Provider Internal Medicine Cardiovascular Disease
DX: I10 Essential (primary) hypertension (principal)
CPT/HCPCS: 36415; 80061

== ENCOUNTER 2023-08-01 06:32 | Outpatient (RCR) | payer MEDICARE, OTHER, SELFPAY ==
[2023-06-19 10:34] VITALS: BMI 26.9
== END 2023-08-30 23:59 ==
LOC: CR 06:32
PROVIDERS: PCP Family Medicine; Referring Provider Internal Medicine Interventional Cardiology; Visit Provider Internal Medicine Cardiovascular Disease
DX: I25.2 Old myocardial infarction (principal); Z95.4 Presence of other heart-valve replacement
CPT/HCPCS: 93798

== ENCOUNTER → 2023-08-06 | Outpatient (CLI) | payer MEDICARE, OTHER, SELFPAY ==
[2023-06-19 10:34] VITALS: BMI 26.9
[2023-08-06 09:47] LABS: Vitamin B12 471 pg/mL (211-911)
== END | disposition home or self-care (01) ==
LOC: LAB 08:14
PROVIDERS: PCP Family Medicine
DX: R41.3 Other amnesia (principal)
CPT/HCPCS: 36415; 82607; 82746

== ENCOUNTER → 2023-08-20 | Outpatient (CLI) | payer MEDICARE, OTHER, SELFPAY ==
[2023-06-19 10:34] VITALS: BMI 26.9
[2023-08-20 13:50] LABS: Digoxin Level 1.01 ng/mL (0.80-2.00)
== END | disposition home or self-care (01) ==
LOC: LAB 12:31
PROVIDERS: PCP Family Medicine
DX: R00.2 Palpitations (principal); I50.9 Heart failure, unspecified; Z79.899 Other long term (current) drug therapy
CPT/HCPCS: 36415; 80162

== ENCOUNTER → 2023-09-05 | Outpatient (CLI) | payer MEDICARE, OTHER, SELFPAY ==
[2023-06-19 10:34] VITALS: BMI 26.9
[2023-09-05 10:45] LABS: Hematocrit 40.7 % (37-47); Hemoglobin 12.7 g/dL (12.0-15.0); Mean Corp Hgb Conc 31.2 g/dL (32-36); Mean Corpuscular Hgb 28.6 pg (27.0-32.0); Mean Corpuscular Volume 91.7 fL (81-99); Mean Platelet Vol. 8.7 fl (6.2-12.0); Platelet Count 361 K/mm3 (150-450); RBC Distribution Width CV 15.4 % (11.6-14.6); RBC Distribution Width SD 52.1 fl (35.1-43.9); Red Blood Count 4.44 M/mm3 (4.2-5.4); White Blood Count 8.6 K/mm3 (4.4-11.0)
[2023-09-05 11:36] LABS: ALB/GLOB Ratio 0.8 RATIO (0.9-2.4); AST(SGOT) 15 U/L (15-37); Alanine Aminotransfer ALT/SGPT 15 U/L (13-56); Albumin, Serum 3.8 g/dL (3.2-5.0); Alkaline Phosphatase 76 U/L (45-117); Anion Gap 5 (5-15); BUN 18 mg/dL (7-18); BUN/Creat Ratio 14.4 RATIO (10-20); Calcium,Total 9.9 mg/dL (8.5-10.1); Chloride 109 mmol/L (98-107); Creatinine, Serum 1.25 mg/dL (0.55-1.02); EST Glomerular Filtration Rate 44 mL/min (>60); Est Glom Filt Rate - Afr Amer 54 mL/min (>60); Globulin 4.9 g/dL (2.2-4.2); Glucose 154 mg/dL (74-106); Magnesium 2.1 mg/dL (1.6-2.6); Potassium 4.7 mmol/L (3.5-5.1); Protein, Total 8.7 g/dL (6.4-8.2); Sodium Level 136 mmol/L (136-145)
[2023-09-05 12:12] LABS: Digoxin Level 1.93 ng/mL (0.80-2.00)
== END | disposition home or self-care (01) ==
PROVIDERS: PCP Family Medicine; Referring Provider Family Medicine; Visit Provider Family Medicine
DX: N18.30 Chronic kidney disease, stage 3 unspecified (principal); I48.91 Unspecified atrial fibrillation; Z51.81 Encounter for therapeutic drug level monitoring
CPT/HCPCS: 36415; 80053; 80162; 83735; 85027

== ENCOUNTER → 2023-09-07 | Outpatient (CLI) | payer MEDICARE, OTHER, SELFPAY ==
[2023-06-19 10:34] VITALS: BMI 26.9
[2023-09-07 17:42] LABS: ALB/GLOB Ratio 0.9 RATIO (0.9-2.4); AST(SGOT) 18 U/L (15-37); Alanine Aminotransfer ALT/SGPT 19 U/L (13-56); Albumin, Serum 3.7 g/dL (3.2-5.0); Alkaline Phosphatase 73 U/L (45-117); Anion Gap 3 (5-15); BUN 23 mg/dL (7-18); BUN/Creat Ratio 16.7 RATIO (10-20); Calcium,Total 10.1 mg/dL (8.5-10.1); Chloride 106 mmol/L (98-107); Creatinine, Serum 1.38 mg/dL (0.55-1.02); EST Glomerular Filtration Rate 40 mL/min (>60); Est Glom Filt Rate - Afr Amer 48 mL/min (>60); Globulin 4.3 g/dL (2.2-4.2); Glucose 273 mg/dL (74-106); Potassium 4.8 mmol/L (3.5-5.1); Sodium Level 137 mmol/L (136-145)
[2023-09-07 17:55] LABS: Digoxin Level 1.09 ng/mL (0.80-2.00)
== END | disposition home or self-care (01) ==
LOC: LAB 16:35
PROVIDERS: PCP Family Medicine; Referring Provider Family Medicine; Visit Provider Family Medicine
DX: I48.91 Unspecified atrial fibrillation (principal); Z51.81 Encounter for therapeutic drug level monitoring
CPT/HCPCS: 36415; 80053; 80162

== ENCOUNTER → 2024-03-04 | Outpatient (CLI) | payer MEDICARE, OTHER, MEDICAID, SELFPAY ==
[2023-06-19 10:34] VITALS: BMI 26.9
[2024-03-04 10:02] LABS: AST(SGOT) 24 U/L (15-37); Alanine Aminotransfer ALT/SGPT 33 U/L (13-56); Albumin, Serum 3.7 g/dL (3.2-5.0); Alkaline Phosphatase 72 U/L (45-117); Anion Gap 7 (5-15); BUN 22 mg/dL (7-18); BUN/Creat Ratio 17.2 RATIO (10-20); Calcium,Total 9.9 mg/dL (8.5-10.1); Chloride 110 mmol/L (98-107); Creatinine, Serum 1.28 mg/dL (0.55-1.02); EST Glomerular Filtration Rate 43 mL/min (>60); Est Glom Filt Rate - Afr Amer 52 mL/min (>60); Globulin 3.7 g/dL (2.2-4.2); Glucose 135 mg/dL (74-106); Hemoglobin A1c 6.9 % (3.8-5.6); Potassium 4.7 mmol/L (3.5-5.1); Protein, Total 7.4 g/dL (6.4-8.2); Sodium Level 138 mmol/L (136-145); Thyroid Stim Hormone (TSH) 2.16 uIU/mL (0.358-3.74)
== END | disposition home or self-care (01) ==
LOC: MFPLAB 08:56
PROVIDERS: PCP Family Medicine; Visit Provider Family Medicine
DX: L85.3 Xerosis cutis (principal); E11.8 Type 2 diabetes mellitus with unspecified complications
CPT/HCPCS: 36415; 80053; 83036; 84443

== ENCOUNTER 2024-03-24 09:52 | Emergency (ER) | payer MEDICARE, OTHER, MEDICAID, SELFPAY ==
[2023-06-19 10:34] VITALS: BMI 26.9
[2024-03-24 09:53] VITALS: BP 117/54; PULSE 70; RESP 16; TEMP 37.5; O2SAT 97; BMI 24.7
--- NOTE | 2024-03-24 10:56 | EDS_ITS ---
HPI History of Present Illness Chief Complaint: Confusion Informant: patient and family Onset/Context/Timing Onset: Days (2) Context: Gradual Onset Timing: Waxes and wanes Quality: Confused Location: Generalized Worsened by: Nothing Relieved by: Nothing Narrative Narrative: Patient presents with increasing confusion and urinary incontinence. Daughter states that patient has been having increasing incontinence and foul-smelling urine for the past couple days. Daughter states it is gradually gotten worse. Daughter states her symptoms seem to be waxing and waning. Daughter states patient has been more fatigued than usual. Patient has a history of dementia and is a poor informant. Daughter states patient was complaining of some chills recently. Daughter denies any fevers. Patient admits to a slight cough. [facility] Medical History Atherosclerosis of [place] coronary artery of [place] heart without angina pectoris Coronary artery disease Abnormal cardiovascular stress test Decreased left ventricular systolic function Left ventricular systolic dysfunction (LVSD) Mitral regurgitation E. coli UTI Diastolic dysfunction without heart failure Sick sinus syndrome Obesity Nonrheumatic mitral valve stenosis with insufficiency Chronic diastolic (congestive) heart failure Essential (primary) hypertension Secondary pulmonary arterial hypertension Nonrheumatic tricuspid (valve) insufficiency Incomplete left bundle branch block (LBBB) Chronic kidney disease (CKD) Persistent atrial fibrillation Hyperlipidemia Type 2 diabetes mellitus Home Medications ?Medication ?Instructions ?Recorded ?Last Taken ?Type metformin 500 mg tablet 1,000 mg PO BID 03/26/18 03/24/24 History cyanocobalamin (vitamin B-12) 1,000 mcg PO DAILY 03/19/23 03/24/24 History 1,000 mcg tablet (Vitamin B-12) apixaban 5 mg tablet (Eliquis) 5 mg PO BID #60 tabs 03/28/23 03/24/24 Rx levothyroxine 25 mcg tablet 25 mcg PO QDAY #90 tabs 04/09/23 03/24/24 Rx clopidogrel 75 mg tablet 75 mg PO DAILY 06/19/23 03/24/24 History metoprolol tartrate 50 mg tablet 50 mg PO BID #60 tabs 07/09/23 03/24/24 Rx pravastatin 20 mg tablet 20 mg PO DAILY #90 tabs 07/19/23 03/23/24 Rx nitroglycerin 0.4 mg sublingual 0.4 mg sublingual Q5-15M PRN chest 08/16/23 Unknown History tablet pain cephalexin 500 mg capsule 500 mg PO Q6 #20 CAPSULES 03/24/24 Unknown Rx donepezil 10 mg tablet 10 mg PO QHS 03/24/24 03/24/24 History insulin glargine 100 unit/mL (3 6 unit subcut BID 03/24/24 03/24/24 History mL) subcutaneous pen (Basaglar KwikPen U-100 Insulin) Allergy/AdvReac Type Severity Reaction Status Date / Time MARCO Inhibitors AdvReac Cough Verified 03/24/24 09:52 Family History Mother CAD (coronary artery disease) Brother , Age 65 [place] CAD (coronary artery disease) Atrial fibrillation Myocardial infarction Father , in MVA No problems noted. Surgical History History of coronary artery stent placement Hx of cardiac catheterization (~05/24/23) History of cholecystectomy S/P ALY (total abdominal hysterectomy) Social History Smoking Status: Former smoker how long ago did patient quit smoking: greater than 20 years alcohol intake: never substance use type: does not use caffeine: Yes Type: coffee Number of servings: 1 ROS ROS ED Constitutional Constitutional ED: Reports chills; Denies fever(s) Eyes Eyes: Denies blurry vision or change in vision ENT ENT ED: Denies rhinorrhea or sore throat Cardiovascular Cardiovascular: Denies chest pain or palpitations Respiratory/Chest Respiratory/Chest: Reports cough; Denies dyspnea Gastrointestinal Gastrointestinal: Denies nausea or vomiting Genitourinary Genitourinary ED: Denies dysuria or hematuria Musculoskeletal Musculoskeletal: Denies back pain or neck pain Integumentary Denies abscess or rash Neurologic Neurologic: Denies headache(s) or weakness Allergic/Immunologic Allergic/Immunologic ED: Denies mouth swelling or urticaria EXAM Physical Exam Const Vital Signs: 03/24/24 09:53 03/24/24 12:00 03/24/24 13:25 Temperature 99.5 F H 97.8 F Temperature Source Temporal Pulse Rate 70 77 74 Respiratory Rate 16 16 15 Blood Pressure 117/54 L 123/69 H 143/68 H Blood Pressure Mean 75 87 93 Pulse Ox 97 98 95 Oxygen Delivery Method Room Air Room Air Positive well nourished and well developed General Appearance ED: well developed and NAD HEENT Reports moist mucous membranes Neck supple and no JVD Resp normal respiratory effort and clear to auscultation bilaterally Cardio regular rate and regular rhythm GI non-tender and non-distended Palpation: soft Extremity normal to inspection General Extremety ED: Negative for edema or tenderness General Extremity: Negative for edema Neuro CN's II-XII intact bilaterally and no sensory deficits noted Sensorium / Orientation: alert Psych mental status grossly normal MDM MDM MDM Narrative Medical decision making narrative: Differential diagnosis includes urinary tract infection, sepsis, electrolyte abnormality, cardiac dysrhythmia, cardiac ischemia. EKG will be obtained to assess for cardiac dysrhythmia and cardiac ischemia. Chest x-ray will be obtained to assess for pneumonia and pneumothorax. CBC will be obtained to as sess for leukocytosis and anemia. Basic metabolic profile will be obtained to assess for electrolyte abnormality and renal function. Urinalysis will be obtained to assess for urinary tract infection.. Urine culture will be obtained to assess for urinary tract infection. Lab Data Attestation: I reviewed the patient's lab results. Lab results narrative: CBC was reviewed. There is a mild leukocytosis of 13.8. There is also mild anemia with a hemoglobin of 10.2 and hematocrit 33.3. Platelets were normal. Basic metabolic profile was reviewed. BUN was 23 and creatinine was 1.51. This is consistent with previous results. Urinalysis was reviewed. Leukocyte esterase was 500 with 25-50 white blood cells and 3+ bacteria. Occult blood was 250 with 25-50 red blood cells. Labs: Laboratory Results - last 24 hr 03/24/24 03/24/24 10:05 11:00 WBC 13.8 H RBC 3.96 L Hgb 10.2 L Hct 33.3 L MCV 84.1 MCH 25.8 L MCHC 30.6 L RDW Std Deviation 52.7 H RDW Coeff of [place] 17.1 H Plt Count 261 MPV 8.9 Immature Gran % (Auto) 0.400 Neut % (Auto) 83.2 H Lymph % (Auto) 4.1 L [place] % (Auto) 12.1 H Eos % (Auto) 0.1 Baso % (Auto) 0.1 Absolute Neuts (auto) 11.4 H Absolute Lymphs (auto) 0.57 L Nucleated RBC % [address] Review May foll Reactive Lymphocytes 1+ Sodium 135 L Potassium 3.6 Chloride 105 Carbon Dioxide 23.0 Anion Gap 7 BUN 23 H Creatinine 1.51 H Estim Creat Clear Calc 28.97 Est GFR (MDRD) Af Amer 43 L Est GFR (MDRD) Non-Af 36 L BUN/Creatinine Ratio 15.2 Glucose 125 H Calcium 9.8 Urine Color Yellow Urine Clarity Sl. Cloudy Urine pH 5.0 [address] S [place] 1.015 Urine Protein 100 H Urine Glucose (UA) Normal Urine Ketones 5 H Urine Occult Blood 250 H Urine Nitrite Negative Urine Bilirubin Negative Urine Urobilinogen Normal Ur Leukocyte Esterase 500 H Urine RBC 25-50 SEEN Urine WBC 25-50 SEEN Ur Squamous Epith Cells 0-5 SEEN Urine Bacteria 3+ Urine Mucus 0 SEEN EKG Initial EKG: Attestation: I personally reviewed and interpreted this EKG as follows: Interpretation: Paced (72) Comments: EKG was obtained. On my independent interpretation, it shows a paced rhythm with a rate of 72. There is a left bundle branch block pattern noted. There is no acute ST or T wave changes noted. Treatment and Re-Evaluation :: Patient was given IV fluids. Patient was given a dose of Rocephin here. Urine culture was ordered. Patient was given a prescription for Keflex. Patient was instructed to follow-up with her primary care physician in 3 to 5 days. Patient and family understood and were agreeable with the plan. All questions were answered. Discharge Plan Triage Chief Complaint: Confusion ED Provider: Cuong Campos Dx/Rx/DC Orders Clinical Impression: Urinary tract infection, Confusion Instructions: ED Confusion, ED Cystitis Female Adult Prescriptions: New cephalexin 500 mg capsule 500 mg PO Q6 Qty: 20 0RF No Action metformin 500 mg tablet 1,000 mg PO BID levothyroxine 25 mcg tablet 25 mcg PO QDAY Qty: 90 3RF metoprolol tartrate 50 mg tablet 50 mg PO BID Qty: 60 11RF pravastatin 20 mg tablet 20 mg PO DAILY Qty: 90 3RF nitroglycerin 0.4 mg tablet, sublingual 0.4 mg sublingual Q5-15M PRN (Reason: chest pain) cyanocobalamin (vitamin B-12) [Vitamin B-12] 1,000 mcg Tablet 1,000 mcg PO DAILY clopidogrel 75 mg tablet 75 mg PO DAILY donepezil 10 mg tablet 10 mg PO QHS insulin glargine [Basaglar KwikPen U-100 Insulin] 100 unit/mL (3 mL) insulin pen 6 unit subcut BID Eliquis 5 mg tablet 5 mg PO BID Qty: 60 11RF Primary Care Provider: Cuong Patel Referrals: Cuong Patel MD [Primary Care Provider] - 3-5 Days Print Language: Irish Disposition Disposition: Home, Self Care Discharge Date/Time: 03/24/24 13:30
[2024-03-24 11:04] LABS: Absolute Lymphocyte Count 0.57 X10^3/uL (0.83-4.51); Absolute Neutrophil Count 11.4 X10^3/uL (2.0-7.7); Basophil# 0.02 X10^3/uL; Basophil% 0.1 % (0-1); Eosinophil# 0.01 X10^3/uL; Eosinophils% 0.1 % (0-5); Hematocrit 33.3 % (37-47); Hemoglobin 10.2 g/dL (12.0-15.0); Lymphocyte # 0.57 X10^3/ul (0.83-4.51); Lymphocyte % 4.1 % (19-41); Mean Corp Hgb Conc 30.6 g/dL (32-36); Mean Corpuscular Hgb 25.8 pg (27.0-32.0); Mean Corpuscular Volume 84.1 fL (81-99); Mean Platelet Vol. 8.9 fl (6.2-12.0); Monocyte# 1.67 X10^3/uL; Monocyte% 12.1 % (0-10); NRBC Flagged by Analyzer 0 % (0-5); Neutrophil # 11.43 X10^3/uL (2.7-7.7); Neutrophil % 83.2 % (47-70); POSITIVE DIFFERENTIAL YES; Platelet Count 261 K/mm3 (150-450); RBC Distribution Width CV 17.1 % (11.6-14.6); RBC Distribution Width SD 52.7 fl (35.1-43.9); Red Blood Count 3.96 M/mm3 (4.2-5.4); White Blood Count 13.8 K/mm3 (4.4-11.0)
--- NOTE | 2024-03-24 11:04 | EKG12_ITS ---
Test Reason : CONFUSION Blood Pressure : / mmHG Vent. Rate : 072 BPM Atrial Rate : 059 BPM P-R Int : 000 ms QRS Dur : 170 ms QT Int : 438 ms P-R-T Axes : 000 -77 104 degrees QTc Int : 479 ms Ventricular-paced rhythm Abnormal ECG Confirmed by Gennaro Bello ([id number]), graphic editor JOE AVENDAÑO ([id number]) on 03/25/2024 8:05:03 AM Referred By: Confirmed By:Gennaro Bello
[2024-03-24 11:07] LABS: Differential Indicated SCAN CRITERIA MET
[2024-03-24] MEDS: 0.9% Normal Saline (1000mL) 1,000 ML 1000 ML IV (11:09)
[2024-03-24 11:13] LABS: Mucous, Urine 0 SEEN /hpf (<or=2+)
[2024-03-24 11:14] LABS: Anion Gap 7 (5-15); BUN 23 mg/dL (7-18); BUN/Creat Ratio 15.2 RATIO (10-20); Calcium,Total 9.8 mg/dL (8.5-10.1); Chloride 105 mmol/L (98-107); Creatinine, Serum 1.51 mg/dL (0.55-1.02); EST Glomerular Filtration Rate 36 mL/min (>60); Est Glom Filt Rate - Afr Amer 43 mL/min (>60); Estimated Creatinine Clearance 28.97 ml/min; Glucose 125 mg/dL (74-106); Potassium 3.6 mmol/L (3.5-5.1); Sodium Level 135 mmol/L (136-145)
[2024-03-24 11:37] LABS: Color, Urine Yellow (Yellow); Glucose, Dipstick Normal (Normal); Ketone-Dipstick 5 mg/dl (Negative); Leukocyte Esterase-Dipstick 500 /ul (Negative); Nitrite-Dipstick Negative (Negative); Occult Blood-Urine 250 /ul (Negative); Protein-Dipstick 100 mg/dl (Negative); Specific Gravity, Urine 1.015 (1.002-1.030); Urine Bilirubin Dipstick Negative (Negative); Urine Clarity Sl. Cloudy (Clear); Urine Urobilinogen Normal (Normal)
[2024-03-24 11:43] LABS: Bacteria 3+ /hpf (None Seen); Red Blood Cells-Urine 25-50 SEEN /hpf (0-5); Squamous Epithelial Cells - UA 0-5 SEEN /hpf (5-10); White Blood Cells 25-50 SEEN /hpf (0-5)
[2024-03-24 11:51] LABS: Reactive Lymphocyte 1+
[2024-03-24 12:00] VITALS: BP 123/69; PULSE 77; RESP 16; O2SAT 98
[2024-03-24] MEDS: Ceftriaxone 1 GM/50 ML BAG IV (12:18)
[2024-03-24 13:25] VITALS: BP 143/68; PULSE 74; RESP 15; TEMP 36.6; O2SAT 95
[2024-03-25 13:40] LABS: Pathologist Review Reviewed
== END 2024-03-24 13:30 | disposition home or self-care (01) ==
PROVIDERS: Emergency Provider Emergency Medicine; PCP Family Medicine; Visit Provider Emergency Medicine
DX: N39.0 Urinary tract infection, site not specified (principal); I13.0 Hypertensive heart and chronic kidney disease with heart failure and stage 1 through stage 4 chronic kidney disease, or unspecified chronic kidney disease; I50.32 Chronic diastolic (congestive) heart failure; I27.21 Secondary pulmonary arterial hypertension; F03.90 Unspecified dementia, unspecified severity, without behavioral disturbance, psychotic disturbance, mood disturbance, and anxiety; E11.22 Type 2 diabetes mellitus with diabetic chronic kidney disease; Z79.4 Long term (current) use of insulin; E78.5 Hyperlipidemia, unspecified; N18.9 Chronic kidney disease, unspecified; I25.10 Atherosclerotic heart disease of native coronary artery without angina pectoris; R32 Unspecified urinary incontinence; Z79.01 Long term (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 of 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; Z79.02 Long term (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 of antithrombotics/antiplatelets; Z79.84 Long term (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 of oral hypoglycemic drugs; Z79.890 Hormone replacement therapy; Z79.899 Other long term (current) drug therapy; Z87.891 Personal history of nicotine dependence; Z95.5 Presence of coronary angioplasty implant and graft
CPT/HCPCS: 51702; 80048; 81001; 85025; 87077; 87086; 87088; 87186; 93005; 96361; 96365; 99283; J7030; A4216

== ENCOUNTER → 2024-04-26 | Outpatient (CLI) | payer MEDICARE, OTHER, MEDICAID, SELFPAY ==
[2023-06-19 10:34] VITALS: BMI 26.9
[2024-04-26 11:07] LABS: AST(SGOT) 22 U/L (15-37); Alanine Aminotransfer ALT/SGPT 21 U/L (13-56); Albumin, Serum 3.8 g/dL (3.2-5.0); Alkaline Phosphatase 62 U/L (45-117); Anion Gap 7 (5-15); BUN 22 mg/dL (7-18); Bilirubin, Direct 0.16 mg/dL (0.00-0.30); Calcium,Total 9.6 mg/dL (8.5-10.1); Chloride 112 mmol/L (98-107); Cholesterol 132 mg/dL (200); EST Glomerular Filtration Rate 51 mL/min (>60); Est Glom Filt Rate - Afr Amer 62 mL/min (>60); Globulin 3.8 g/dL (2.2-4.2); Glucose 114 mg/dL (74-106); High Density Lipoprotein 55 mg/dL; Potassium 4.6 mmol/L (3.5-5.1); Protein, Total 7.6 g/dL (6.4-8.2); Sodium Level 140 mmol/L (136-145); Triglycerides 124 mg/dL; Very Low Density Lipoprotein 25 mg/dL (5-40)
== END | disposition home or self-care (01) ==
PROVIDERS: PCP Family Medicine; Referring Provider Internal Medicine Cardiovascular Disease; Visit Provider Internal Medicine Cardiovascular Disease
DX: E78.2 Mixed hyperlipidemia (principal); I49.5 Sick sinus syndrome; I48.19 Other persistent atrial fibrillation; I34.0 Nonrheumatic mitral (valve) insufficiency; I10 Essential (primary) hypertension
CPT/HCPCS: 36415; 80053; 80061; 82248

== ENCOUNTER → 2024-06-23 | Outpatient (CLI) | payer MEDICARE, OTHER, MEDICAID, SELFPAY ==
[2023-06-19 10:34] VITALS: BMI 26.9
--- NOTE | 2024-06-23 13:25 | ECHOD_ITS ---
Reason For Study: CHF, AFib/Flutter Procedure This was a 2D Doppler, Color Flow transthoracic echocardiogram. Exam performed in department. Left Ventricle Mild to moderate LV concentric hypertrophy. Mildly dilated left ventricle. Dyssynchronous LV wall motion. Estimated LVEF 40%. At least grade 2 diastolic dysfunction with elevated left atrial pressures. Right Ventricle Normal right ventricle. Atria There is severe biatrial dilatation. Mitral Valve Moderate to severe posteriorly directed mitral valve regurgitation. Recommend GISELE for further evaluation. Tricuspid Valve Moderately severe (3+) tricuspid valve insufficiency. Right ventricular systolic pressure estimated to be 67 mmHg. Aortic Valve Trisinus/trileaflet aortic valve. Moderate (2+) aortic valve insufficiency. Pulmonic Valve The pulmonic valve is not well visualized. Great Vessels Normal sized aortic root. Pericardium/Pleural No pericardial effusion. MMode/2D Measurements & Calculations RVDd: 4.6 cm LVOT diam: 2.0 cm Ao root diam: 3.8 cm LVOT area: 3.1 cm2 LAV(MOD-bp): 91.4 ml SV(MOD-sp4): 33.6 ml LVAd ap4: 25.4 cm2 LAV(MOD-bp) Indexed: 54.7 ml/m2 LVLd ap4: 6.7 cm LAV(MOD-sp2): 81.0 ml EDV(MOD-sp4): 78.6 ml LAV(MOD-sp4): 93.5 ml EDV(sp4-el): 81.6 ml LVAs ap4: 19.0 cm2 LVLs ap4: 6.2 cm ESV(MOD-sp4): 45.0 ml ESV(sp4-el): 49.0 ml EF(MOD-sp4): 42.8 % EF(sp4-el): 40.0 % SV(sp4-el): 32.6 ml Ao sinus diam: 3.[address] Junction: 2.9 cm LA A4 area: 27.6 cm2 LA dimension(2D): 5.0 cm RA A4 area: 19.1 cm2 TAPSE: 1.4 cm Time Measurements MV dec time: 0.19 sec Doppler Measurements & Calculations MV E max lit: 168.8 cm/sec Lat Peak E' Lit: 3.5 cm/sec Med Peak E' Lit: 4.7 cm/sec E/E' lat: 48.8 E/E' med: 35.7 MV V2 max: 195.5 cm/sec MV P1/2t max lit: 196.8 cm/sec Ao V2 max: 155.3 cm/sec MV max P.3 mmHg MV P1/2t: 77.1 msec Ao max P.7 mmHg MV V2 mean: 91.7 cm/sec Ao V2 mean: 105.6 cm/sec MV mean P.2 mmHg MV dec slope: 747.7 cm/sec2 Ao mean P.1 mmHg MV V2 VTI: 46.3 cm MVA(P1/2t): 2.9 cm2 Ao V2 VTI: 31.0 cm AV (velocity ratio): 0.56 MVA(VTI): 1.2 cm2 OTIS(I,D): 1.7 cm2 OTIS(V,D): 1.8 cm2 AI max lit: 429.4 cm/sec LV V1 max: 88.0 cm/sec MR max lit: 600.6 cm/sec AI max P.8 mmHg LV V1 max P.1 mmHg MR max P.0 mmHg AI dec slope: 301.0 cm/sec2 LV V1 mean P.9 mmHg MR mean lit: 441.2 cm/sec AI P1/2t: 417.8 msec LV V1 mean: 64.7 cm/sec MR mean P.4 mmHg LV V1 VTI: 17.2 cm MR VTI: 198.0 cm SV(LVOT): 53.5 ml PA V2 max: 65.7 cm/sec PI end-d lit: 147.1 cm/sec PA max PG (full): 0.45 mmHg PI dec slope: 325.7 cm/sec2 TR max lit: 363.2 cm/sec TR max P.8 mmHg ECHO/Echo Complete Interpretation Summary Mild to moderate LV concentric hypertrophy. Mildly dilated left ventricle. Dyssynchronous LV wall motion. Estimated LVEF 40%. At least grade 2 diastolic d ysfunction with elevated left atrial pressures. Moderate to severe posteriorly directed mitral valve regurgitation. Recommend T EE for further evaluation. Moderately severe (3+) tricuspid valve insufficiency. Right ventricular systolic pressure estimated to be 67 mmHg. Moderate (2+) aortic valve insufficiency. Ordering Physician: Sharon Wynn Referring Physician: Sharon Wynn Performed By: Scotty Love RCS
== END | disposition home or self-care (01) ==
LOC: CVS 13:23
PROVIDERS: PCP Family Medicine; Referring Provider Internal Medicine Cardiovascular Disease; Visit Provider Internal Medicine Cardiovascular Disease
DX: I11.0 Hypertensive heart disease with heart failure (principal); I50.32 Chronic diastolic (congestive) heart failure; I48.19 Other persistent atrial fibrillation; I25.10 Atherosclerotic heart disease of native coronary artery without angina pectoris
CPT/HCPCS: 93306

== ENCOUNTER → 2024-07-30 | Outpatient (CLI) | payer MEDICARE, OTHER, MEDICAID, SELFPAY ==
[2023-06-19 10:34] VITALS: BMI 26.9
--- NOTE | 2024-07-30 12:30 | BD_ITS ---
STUDY: DUAL ENERGY X-RAY ABSORPTIOMETRY / DXA REASON FOR EXAM: Female, 73 years old. 733.00OsteoporosisBONE DENSITY REASON FOR EXAM TECHNIQUE: Bone Mineral Density (BMD) measurements of lumbar spine and bilateral hips were obtained. COMPARISON: Comparison is made with prior study February 21, 2018. FINDINGS: Lumbar Spine (L1-L4): g/cm2 (0.949) / T-score (-0.9) / Z-score (1.6) Findings are suggestive of normal bone density with a low fracture risk. Left Femur Total: g/cm2 (0.655) / T-score (-2.4) / Z-score (-0.5) Left Femoral Neck: g/cm2 (0.568) / T-score (-2.5) / Z-score (-0.4) Right Femur Total: g/cm2 (0.695) / T-score (-2.0) / Z-score (-0.2) Right Femoral Neck: g/cm2 (0.633) / T-score (-1.9) / Z-score (0.2) The T-Scores on the most recent prior examination were: Lumbar Spine (L1-L4): There has been worsening of bone density since the previous examination. Left Femur Total: which represents a worsening of 21.8. Right Femur Total: which represents a worsening of 15.2%. BD/Dexa Bone Density Study IMPRESSION: The patient is considered osteopenic as outlined below according to [employer] [place] [employer] (WHO) criteria with a high fracture risk. There has been worsening of bone density since the previous examination. Reference Information: The T-score is the number of standard deviations above or below the standard which is normal for young adults at their peak bone mineral density. The World Health Organization (WHO) interprets the T-scores as follows: Above -1 Normal bone density Between -1 and -2.5 Osteopenia Equal to / or below -2.5 Osteoporosis As a practical clinical guideline, osteopenia may be graded as follows: Mild -1 through -1.5 Moderate -1.6 through -2.0 Severe -2.1 through -2.4 The Z-score is the number of standard deviations above or below age-matched controls. A Z-score of less than -1.5 would be considered abnormal. References: 1. NIH Osteoporosis and Related Bone Diseases www osteo.org 2. International Society for Clinical Densitometry www iscd.org 3. National Osteoporosis Foundation www nof.org Electronically Signed: Andrey Berry MD at 10:18 EST ,
== END | disposition home or self-care (01) ==
LOC: OPBD 12:24
PROVIDERS: PCP Family Medicine; Referring Provider Nurse Practitioner Family; Visit Provider Nurse Practitioner Family
DX: M81.0 Age-related osteoporosis without current pathological fracture (principal)
CPT/HCPCS: 77080

== ENCOUNTER → 2024-08-13 | Outpatient (CLI) | payer MEDICARE, OTHER, MEDICAID, SELFPAY ==
[2023-06-19 10:34] VITALS: BMI 26.9
[2024-08-13 18:28] LABS: Vitamin D,25 Hydroxy 24.2 ng/mL
[2024-08-13 18:29] LABS: AST(SGOT) 17 U/L (15-37); Alanine Aminotransfer ALT/SGPT 20 U/L (13-56); Albumin, Serum 3.7 g/dL (3.2-5.0); Alkaline Phosphatase 73 U/L (45-117); Bilirubin, Direct 0.09 mg/dL (0.00-0.30); Cholesterol 157 mg/dL (200); Globulin 4.2 g/dL (2.2-4.2); High Density Lipoprotein 60 mg/dL; Protein, Total 7.9 g/dL (6.4-8.2); Triglycerides 201 mg/dL; Very Low Density Lipoprotein 40 mg/dL (5-40)
== END | disposition home or self-care (01) ==
LOC: MFPLAB 16:29
PROVIDERS: Internal Medicine Cardiovascular Disease; Nurse Practitioner Family; PCP Family Medicine; Referring Provider Family Medicine; Visit Provider Family Medicine
DX: E78.00 Pure hypercholesterolemia, unspecified (principal); M81.0 Age-related osteoporosis without current pathological fracture
CPT/HCPCS: 36415; 80061; 80076; 82306

== ENCOUNTER 2024-09-17 14:00 | Outpatient (RCR) | payer MEDICARE, OTHER, MEDICAID, SELFPAY ==
[2023-06-19 10:34] VITALS: BMI 26.9
--- NOTE | 2024-08-22 14:02 | HP.PTEVAL_ITS ---
Patient's Visit Information Visit Information Visit Information: AMALIA CORRAL is a 73 year old F referred to Physical Therapy by TAYLOR Wilkins with a diagnosis of OP. Date of Evaluation: 08/22/24 Physical Therapist: Cuong Khan, MARINT, OCS, CSCS Visit Plan Frequency: 2x /Week Duration: 4-6 Weeks Plan: up to 2x/week after doing HEP daily at home with during Thanksgiving trip to educate and progress HEP for... 1. walking with wh walker 2x/day 2. WB exercises to spine adn LE for OP and strength 3. stretch HS and progress ex. Pt will do husbands ex adn attempt to walk 2x/day to tolerance for next two weeks then f/u to perform HEP which she willbring with her and check on walking and ex for completeness and progress and change as needed. Decide next session of frequency form that point based on HEP tolerance and compliance. Subjective Subjective: Dtr present. Had a bone scan for MCR review check and has some hip and leg pain. she has Osteoporosis in hips L >R. Feels weakness in L hip to pull it in car. No falls then dtr says fell labor day that patient does not remember. That was at a small step to get in but did not hit the ground(hands were full) No cane or walker but has a cane. Sleeps well without interruption, some back pain. Lives wth dtr for year and a half on lower level. 2 steps to enter. Basic ADLs dressing, bathroom and shower I, then dtr says needs help washing areas. Walk in shower. Has safety bars. Spends day watching TV, goes to [employer] 2x/week for social. Not consistently exercising. Feels like hard work to walk to mailbox and might get SOB. Not walked to mailbox in > 1 yr. Pacemaker adn stents a year ago set her back. Not employed. Hobbies cleaning house. Pain L hip: Pain Intensity (Out of 10): 2 Objective Objective: Walks mildly hunched over and looking down into PT I, slow and tends to short steps. 2x150 feet adn limited by slight SOB but mostly back pain, gone with sitting. Sit to stand without UE I, bed trasnfer I. Steps are reciprocal when cued wiht one railing up and two descending. Weakness obbvious in hips. Core strength 3/5 and unstable with LE seated testing. Hip strength 3/5 abd and extension and flexion. Knee flexion/extension 4-, ankles 4/5. Good coordination on reciprocal toe and heel tap. reflexes 2/3 patella and achilles B Sensation LE WNL to gross light touch. Flexibility is tight in HS at -25 90/90 test B can stand up tall and take long steps with VC but tendency is hunched and short steps Balance/Special Test Scores Functional Gait Assessment Score: 22 % Disability: 26.6700 CATSIB Score (Max score 120 seconds): 100 Lower Extremity Functional Score: 25 Goals Goal 1:: FGA / to redue fall risk. Goal Time Frame: 4-6 Weeks Goal 2:: I appropriate HEP for general strength, WB walking and ex for OP, posture and core/LE strength Goal Time Frame: 4-6 Weeks Goal 3:: Pt feel 50% better in mobiltiy Goal Time Frame: 4-6 Weeks Goal 4:: walk 800 feet without limitations due to back pain Goal Time Frame: 4-6 Weeks Goal 5:: LEFS 45 Goal Time Frame: 4-6 Weeks Rehabilitation Potential Physical Therapy Diagnosis: sedentary and weak limiting mobility and strength limting comfortable funciton. Rehabilitation Potential: Fair Anticipated Interventions Patient/Client Instruction: Educate patient on: Condition and Plan of Care For the Purpose of:: To decrease pain, To improve nutrient delivery to tissue, To improve muscle performance and motor function and To increase tolerance to activity/condition/position Therapeutic Exercise to Include: Strength training, Postural training, Flexibilty training, Gait and locomotor training, Passive ROM and Active ROM For the Purpose of:: To decrease pain, To increase ROM, To improve nutrient delivery to tissue, To improve muscle performance and motor function, To increase tolerance to activity/condition/position, To increase flexibility/ROM and To improve safety Text: Thank you for the opportunity to evaluate your patient. For Medicare and Medicare HMO plans, please review the plan of care and approve it. It will need to be FAXED BACK to us at [phone] for Medicare purposes. For Medicare only, by signing this I certify the plan of care. Please let me know if there are questions or concerns regarding this plan of care. Physician Signature: Date:
--- NOTE | 2024-11-17 14:27 | HP.PT.NRP ---
Patient Information Patient Information: AMALIA CORRAL was seen in my office for initial evaluation on 08/22/24. The following Plan of Care was established for this patient: POC Established Initial Frequency: 2x /Week Initial Duration: 4-6 Weeks Anticipated Interventions Patient/Client Instruction: Educate patient on: Condition and Plan of Care For the Purpose of:: To decrease pain, To improve nutrient delivery to tissue, To improve muscle performance and motor function and To increase tolerance to activity/condition/position Therapeutic Exercise to Include: Strength training, Postural training, Flexibilty training, Gait and locomotor training, Passive ROM and Active ROM For the Purpose of:: To decrease pain, To increase ROM, To improve nutrient delivery to tissue, To improve muscle performance and motor function, To increase tolerance to activity/condition/position, To increase flexibility/ROM and To improve safety Last Seen Last Seen: This patient was last seen in our office 09/17/24. Pertinent comments regarding their Physical therapy will appear below: Pt seen 6 visits of POC but cancelled the remaining visits. at this point, it has been almost two months and I will discontinue due to nonattendance. At this point I will be discontinuing this patient from physical therapy. I would be happy to see this patient again in the future if found appropriate by the physician. Thank you! Cuong Khan, DPT, OCS, CSCS Balance/Gait/Functional tests Balance/Special Test Scores Functional Gait Assessment Score: 22 % Disability: 26.6700 CATSIB Score (Max score 120 seconds): 100 Lower Extremity Functional Score: 25
== END 2024-09-17 19:00 | disposition home or self-care (01) ==
LOC: PT 14:00
PROVIDERS: PCP Family Medicine; Referring Provider Nurse Practitioner Family; Visit Provider Nurse Practitioner Family
DX: M81.0 Age-related osteoporosis without current pathological fracture (principal)
CPT/HCPCS: 97110; 97161

== ENCOUNTER → 2025-01-01 | Outpatient (CLI) | payer MEDICARE, OTHER, MEDICAID, SELFPAY ==
[2023-06-19 10:34] VITALS: BMI 26.9
[2025-01-01 17:49] LABS: ALB/GLOB Ratio 1.2 RATIO (0.9-2.4); AST(SGOT) 28 U/L (<=31); Alanine Aminotransfer ALT/SGPT 20 U/L (<=34); Albumin, Serum 4.5 g/dL (3.4-4.8); Alkaline Phosphatase 72 U/L (35-104); Anion Gap 15 (5-15); BUN 22 mg/dL (4-19); BUN/Creat Ratio 20.1 RATIO (10-20); Calcium,Total 10.1 mg/dL (7.6-11.0); Carbon Dioxide 18.1 mmol/L (21.0-32.0); Chloride 106 mmol/L (98-108); EST Glomerular Filtration Rate 52 (>60); Globulin 3.7 g/dL (2.2-4.2); Glucose 107 mg/dL (70-99); Protein, Total 8.2 g/dL (5.9-8.4); Sodium Level 139 mmol/L (133-145); Total Bilirubin 0.37 mg/dL (0.00-1.30)
[2025-01-01 18:42] LABS: Cholesterol 185 mg/dL (<=200); High Density Lipoprotein 59 mg/dL; Low Density Lipoprotein Calc. 91 mg/dL; Triglycerides 176 mg/dL; Very Low Density Lipoprotein 35 mg/dL (5-40); cholesterol:hdl ratio screen 3.13
[2025-01-01 19:36] LABS: Vitamin D,25 Hydroxy 30.4 ng/mL (30-100)
[2025-01-01 19:37] LABS: Vitamin B12 2308 pg/mL (180-914)
== END | disposition home or self-care (01) ==
LOC: MFPLAB 09:40
PROVIDERS: PCP Family Medicine; Referring Provider Family Medicine; Visit Provider Family Medicine
DX: I25.10 Atherosclerotic heart disease of native coronary artery without angina pectoris (principal); E11.8 Type 2 diabetes mellitus with unspecified complications; E03.8 Other specified hypothyroidism; E53.8 Deficiency of other specified B group vitamins; E55.9 Vitamin D deficiency, unspecified
CPT/HCPCS: 36415; 80053; 80061; 82306; 82607; 82746; 84443

== ENCOUNTER → 2025-07-22 05:00 | Outpatient (REF) | payer MEDICARE, OTHER, MEDICAID, SELFPAY ==
[2023-06-19 10:34] VITALS: BMI 26.9
--- OUTSIDE RECORDS SUMMARY | 2025-07-22 04:11 | XMS RPT_ITS | CCD ---
Author Organization [facility] Care Team Providers Care Hooker Up Name Role Phone Agnieszka RN, Malgorzata A Unavailable Unavailable Agnieszka RN, Malgorzata Mcgowan Unavailable Unavailable Jose RN, Jazmni L Unavailable Jorge Amalia Anne Unavailable Ofelia Estelle L Unavailable Agnieszka RN, Malgorzata Mcgowan Unavailable Unavailable Jorge Amalia Anne Unavailable Care Physician, No Primary Primary Care Provider Unavailable Dr. Sanam Stubbs Emergency Provider Dr. Ricco Rod Admit Provider Dr. Ricco Rod Attending Provider Dr. Ricco Rod Other Provider Dr. Sharon Wynn Other Provider Dr. Geeta Michaud Other Provider Dr. Geeta Michaud Attending Provider Dr. Sharon Wynn Attending Provider Unavailable Primary Care Provider Unavailabl Rajat Taylor Primary Care Provider Care Physician, No Primary Referring Provider Un available Dr. Sharon Wynn Referring Provider Dr. Rajat Patel Primary Care Provider Dr. Rajat Patel Primary Care Provider Dr. Sharon Wynn Referring Provider Dr. Rajat Patel Referring Provider Rajat Patel MD Primary Care Provider Liza Fitzgerald MD Unavailable Roof FIRST LINE SUPERVISOR, FIRST LINE SUPERVISOR-C Marybel Whitten Attending Provider Care Physician, No Primary Primary Care Provider Unavailable Philomena, Dr. Herrera Attending Provider Philomena, Dr. Herrera Other Provider Dr. Rajat Patel Primary Care Provider Philomena, Dr. Herrera Attending Provider Philomena, Dr. Herrera Referring Provider Philomena, Dr. Herrera Other Provider Dr. Rajat Patel Referring Provider Roof FIRST LINE SUPERVISOR, FIRST LINE SUPERVISOR-C Marybel Whitten Attending Provider PHILOMENA, SHARON Referring Unavailable MARYBEL RENEE Attending Unavailable RAJAT PATEL Primary Care Unavailable Dr. Rajat Patel Primary Care Provider Philomena, Dr. Herrera Attending Provider Dr. Rajat Patel Primary Care Provider Dr. Rajat Patel Referring Provider Philomena, Dr. Herrera Attending Provider Jorge VALLE, Rajat Mcgowan Primary Care Provider [phone] MITCHELL VANESSA Attending Unavail MITCHELL Moody Referring Unavail Dr. Rajat Crowell MD Primary Care Provider Venkat FIRST LINE SUPERVISOR-C, Sary Attending Provider Venkat FIRST LINE SUPERVISOR-C, Sary Referring Provider Dr. Rajat Patel MD Attending Provider [phone] Rajat Patel MD Referring Provider [phone] Rajat Patel Attending Unavailable Rajat Patel Referring Unavailable Patel, Rajat Primary Care Unavailable Patel, Rajat Primary Care Unavailable Rajat Patel Attending Unavailable PhilomenaSharon Referring Unavailable Jorge, Rajat Primary Care Unavailable PhilomenaSharon Attending Unavailable Philomena, Sharon Referring Unavailable Patel, Rajat Primary Care Unavailable Philomena, Sharon Attending Unavailable Venkat FIRST LINE SUPERVISOR, Sary Attending Unavailable Venkat FIRST LINE SUPERVISOR, Sary Referring Unavailable Patel, Rajat Primary Care Unavailable Schwiger, Rajat Attending Unavailable Patel, Rajat Primary Care Unavailable Patel, Rajat Attending Unavailable Patel, Rajat Referring Unavailable Patel, Rajat Primary Care Unavailable Patel, Rajat Referring Unavailable Patel, Rajat Primary Care Unavailable Philomena, Sharon Attending Unavailable Patel, Rajat Primary Care Unavailable Philomena, Sharon Attending Unavailable Venkat FIRST LINE SUPERVISOR, Sary Attending Unavailable Venkat FIRST LINE SUPERVISOR, Sary Referring Unavailable Patel, Rajat Primary Care Unavailable PATEL, RAJAT Primary Care Unavailable RASHAWNK, IVANNA Attending Unavailable VADIMIRK, IVANNA Attending Unavailable PATEL, RAJAT Primary Care Unavailable KABAR, IVANNA Attending Unavailable PATEL, RAJAT Primary Care Unavailable YEIMY SALAS MD Admitting Unavailable YEIMY SALAS MD Primary Care Unavailable YEIMY SALAS MD Consulting Unavailable YEIMY SALAS MD Attending Unavailable PROVIDER, UNKNOWN Consulting Unavailable PROVIDER, UNKNOWN Consulting Unavailable PROVIDER, UNKNOWN Consulting Unavailable SAL ABURTO Admitting Unavailable SAL ABURTO Primary Care Unavailable SAL ABURTO Attending Unavailable MITZI GALLEGOS MANUFACTURING ENGINEERING TECHNOLOGIST-C Referring Unavailabl e PATEL, RAJAT A Primary Care Unavailable PATEL, RAJAT A Primary Care Unavailable CONKLE-DESTINY, RANDI Attending Unavaila SELENA Nunez Attending Unava ilable PATEL, RAJAT A Primary Care Unavailable PATEL, RAJAT A Primary Care Unavailable CHLOE STRONG Referring Unavailable PATEL, RAJAT A Primary Care Unavailable CHLOE STRONG Attending Unavailable PATEL, RAJAT A Primary Care Unavailable Cassi Love MD Unavailable PATEL, RAJAT A Primary Care Unavailable PATEL, SANAM Bond Attending Unavailable SANAM URRUTIA Referring Unavailable PROVIDER, UNKNOWN Referring Unavailable PATEL, RAJAT A Primary Care Unavailable ASAEL WRIGHT Attending Unavailable CONKLE-AMENAX, RANDI Referring Unavaila CASSI Blanton Consulting Unavailable PATEL, RAJAT A Primary Care Unavailable PROVIDER, UNKNOWN Attending Unavailable ASHLEY ZAMUDIO Admitting Unavailable Cassi Love MD Unavailable PATEL, RAJAT A Primary Care Unavailable LISA CLEMENTE Referring Unavailable PATEL, RAJAT A Primary Care Unavailable LISA CLEMENTE Attending Unavailable LIZA ORTIZ Referring Unavailable LIZA ORTIZ Attending Unavailable RAJAT PATEL Primary Care Unavailable Allergies Allergy Classification Reported Allergen(s) Allergy Type Date of Onset Reaction(s) Facility (20 sources) Angiotensin Converting Enzyme (Marco) Inhibitors; 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: [MARCO Inhibitors] drug allergy 04-05-2009 Cough [email or web address] [facility] Work Phone: (20 sources) losartan drug allergy 10-03-2015 Rash [place] [employer] [facility] Work Phone: (20 sources) Losartan; 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: [LOSARTAN POTASSIUM] Drug Allergy 11-24-2014 Rash [facility] Work Phone: Medications Current Medications Medication Drug Class(es) Dates Sig (Normalized) Sig (Original) acetylcysteine 600 mg oral capsule (20 sources) Antidote, Mucolytic, Antidote for Acetaminophen Overdose Start: 04-16-2024 take 1 capsule by mouth twice daily Acetylcysteine 600 mg capsule Active 600 mg PO TWICE A DAY April 16, 2024 12:00am Start: 03-24-2024 End: 03-24-2024 take 1 capsule by mouth twice daily Acetylcysteine 600 mg capsule Discontinued 600 mg PO TWICE A DAY March 24, 2024 12:00am March 24, 2024 11:25am apixaban 5 mg oral tablet (20 sources) Factor Xa Inhibitor Start: 10-03-2015 End: 04-28-2024 take 1 tablet by mouth twice daily apixaban (ELIQUIS) 5 mg tab tab(s) Take 1 tablet by mouth twice daily. 60 tablet 12 03/27/2016 Active Start: 10-03-2015 End: 09-04-2017 take 1 tablet by mouth twice daily Apixaban 2.5 MG tablet Discontinued 2.5 mg PO TWICE A DAY October 11, 2015 1:00am September 04, 2017 4:22pm Comment on above: Take 1 tablet by gloria th twice daily. aspirin 81 mg oral tablet (3 sources) Platelet Aggregation Inhibitor, Nonsteroidal Anti-inflammatory Drug take 1 capsule by mouth once daily aspirin 81 mg cap Take 81 mg by mouth once daily. Active End: 11-20-2023 take 1 tablet by mouth once daily aspirin 81 mg chewable tablet Take 81 mg by mouth once daily. 0 11/20/2023 Discontinued Comment on above: Take 81 mg by mouth once daily. cefdinir 300 mg oral capsule (1 source) Cephalosporin Antibacterial Start: 04-23-20 End: 04-25-20 take 1 capsule by mouth twice daily cefdinir (OMNICEF) 300 mg capsule Take 1 capsule by mouth two times a day for 2 days. 4 capsule 04/23/2025 04/25/2025 Active clopidogrel 75 mg oral tablet (20 sources) P2Y12 Platelet Inhibitor Start: 06-03-20 End: 08-22-20 take 1 tablet by mouth once daily Clopidogrel 75 mg tablet Active 75 mg PO DAILY June 19, 2023 12:00am Comment on above: Take 1 tablet by gloria th once daily. dapagliflozin 10 mg oral tablet (20 sources) Sodium-Glucose Cotransporter 2 Inhibitor Start: 04-16-20 End: 03-26-20 take 1 tablet by mouth once daily FARXIGA 10 mg tablet Take 1 tablet by mouth once daily. 90 tablet 1 03/26/2025 Active donepezil hydrochloride 10 mg oral tablet (20 sources) Start: 01-29-20 End: 02-11-20 take 1 tablet by mouth once daily at bedtime donepezil (ARICEPT) 10 mg tablet Take 10 mg by mouth daily at bedtime. 08/12/2024 Active Start: 01-29-2024 End: 04-29-2024 take 1 tablet by mouth once daily donepezil (Aricept) 5 MG tablet Indications: Moderate late onset Alzheimer's dementia without behavioral disturbance, psychotic disturbance, mood disturbance, or anxiety (HCC) Take 1 tablet (5 mg) by mouth Nightly. 30 tablet 01/29/2024 04/29/2024 Discontinued (Dose adjustment) ferrous sulfate 325 mg oral tablet (4 sources) Start: 04-21-2025 End: 04-21-2026 take 1 tablet by mouth every other day ferrous sulfate (IRON) 325 mg (65 mg iron) tablet Take 1 tablet by mouth every other day. 45 tablet 3 04/21/2025 04/21/2026 Active furosemide 20 mg oral tablet (20 sources) Loop Diuretic Start: 06-22-2023 End: 03-24-2024 take 2 tablets by mouth once daily Furosemide 20 mg tablet Discontinued 40 mg PO DAILY 90 June 22, 2023 12:22pm March 24, 2024 11:23am Start: 06-22-2023 take 40 mg by mouth once daily Furosemide Active 40 MG PO DAILY June 22, 2023 11:22am Start: 03-25-2023 End: 04-24-2025 take 1 tablet by mouth once daily furosemide (LASIX) 20 mg tablet Take 1 tablet by mouth once daily. 90 tablet 3 04/24/2025 Active Start: 03-19-2023 End: 03-25-2023 take 1 tablet by mouth twice daily Furosemide 20 mg Tablet Discontinued 20 mg PO TWICE A DAY March 19, 2023 12:00am March 25, 2023 10:46am Start: 03-25-2019 End: 05-16-2019 take 1 tablet by mouth once daily Furosemide (Lasix) 40 mg tablet Discontinued 40 mg PO DAILY March 25, 2019 12:00am May 16, 2019 4:57pm Comment on above: Take 20 mg by mouth once daily. 3 ml insulin glargine 100 unt/ml pen injector (12 sources) Insulin Analog Start: inject 6 [IU] by subcutaneous injection twice daily BASAGLAR KWIKPEN U-100 INSULIN 100 unit/mL (3 mL) INJECT 6 UNITS SUBCUTANEOUSLY TWICE DAILY 07/15/2024 Active Start: 04-16-2024 Insulin Glargi ne (Basaglar Kwikpen U-100 Insulin) 100 unit/mL (3 mL) insulin pen Active 6 U SC DAILY April 16, 2024 10:11am Start: 03-24-2024 End: 04-16-2024 inject 6 [IU] by subcutaneous injection twice daily Insulin Glargine (Insulin Glargine 100 Unit/Ml (3 Ml) Subcutaneous Pen) 100 unit/mL (3 mL) insulin pen Discontinued 6 U SC TWICE A DAY March 24, 2024 12:00am April 16, 2024 10:12am levothyroxine sodium 0.025 mg oral tablet (20 sources) l-Thyroxine Start: 02-20-2017 End: 06-30-2024 take 1 tablet by mouth once daily Levothyroxine 25 mcg tablet Active 25 ug PO daily June 30, 2024 9:24am take 1 capsule by mouth once omar ly Levothyroxine 25 mcg cap Take 25 mcg by mouth once daily. Active Comment on above: Take 25 mcg by mouth once daily. losartan potassium 25 mg oral tablet (20 sources) Angiotensin 2 Receptor Rajinder Start: 11-09-2015 take 1 tablet by mouth once daily losartan (COZAAR) 25 mg tablet Take 25 mg by mouth once daily. 11/09/2015 Active Start: 11-09-2015 take 0.5 tablet by m outh once daily LOSARTAN POTASSIUM 25 MG TABS 1/2 tablet by mouth daily LOSARTAN POTASSIUM [id number] Mike Joiner MD metFORMIN hydrochloride 500 mg oral tablet (20 sources) Biguanide Start: 03-26-2018 take 2 tablets by mouth twice daily Metformin 500 mg tablet Active 1000 mg PO TWICE A DAY March 26, 2018 12:00am Start: 03-26-2018 take 1000 mg by mout h twice daily Metformin Active 1000 MG PO TWICE A DAY March 25, 2018 11:00pm Start: 03-08-2016 End: 07-31-2023 take 500 mg by mouth twice daily Metformin Active 500 MG PO TWICE A DAY March 26, 2018 12:00am Start: 08-09-2015 End: 08-11-2015 take 4 tablets by mouth once daily Metformin 500 MG tablet Discontinued 2000 mg PO DAILY August 09, 2015 1:00am August 11, 2015 4:23pm Start: 08-09-2015 End: 08-11-2015 take 2000 mg by mouth once daily Metformin Discontinued 2000 MG PO DAILY August 09, 2015 12:00am August 11, 2015 3:23pm Comment on above: Take 1,000 mg by gloria th twice daily with meals. metoprolol tartrate 50 mg oral tablet (20 sources) beta-Adrenergic Rajinder Start: 07-09-2023 End: 08-22-2024 take 1 tablet by mouth twice daily Metoprolol Tartrate 50 mg tablet Active 50 mg PO TWICE A DAY 60 August 22, 2024 2:35pm Start: 06-22-2023 End: 07-09-2023 take 1 tablet by mouth twice daily Metoprolol Succinate 25 mg tablet extended release 24 hr Discontinued 25 mg PO TWICE A DAY June 22, 2023 12:23pm July 09, 2023 1:29pm Start: 06-19-2023 End: 06-22-2023 take 1 capsule by mouth once daily, then take 1 capsule by mouth every twenty-four hours Metoprolol Succinate (Kapspargo Sprinkle) 25 mg capsule,sprinkle,ER 24hr Discontinued 25 mg PO DAILY June 19, 2023 12:00am June 22, 2023 11:23am Start: 06-02-2023 End: 07-05-2024 take 1 tablet by mouth once daily Metoprolol Succinate 25 mg tablet extended release 24 hr Discontinued 25 mg PO DAILY June 22, 2023 12:00am June 22, 2023 12:23pm Start: 03-25-2023 End: 06-19-2023 take 1 tablet by mouth twice daily Metoprolol Tartrate 50 mg tablet Discontinued 50 mg PO TWICE A DAY 180 April 18, 2023 10:09am June 19, 2023 10:40am Start: 03-19-2023 End: 03-25-2023 Metoprolol Tartrate 100 mg T ablet Discontinued 150 mg PO TWICE A DAY March 19, 2023 12:00am March 25, 2023 10:46am Start: 03-19-2023 End: 03-25-2023 take 150 mg by mouth twice daily Metoprolol Tartrate Discontinued 150 MG PO TWICE A DAY March 18, 2023 11:00pm March 25, 2023 9:46am Start: 12-02-2022 End: 07-31-2023 metoprolol tartrate (Lopress or) 100 MG tablet take 1 tablet by gloria th twice daily metoprolol succinate ER (TOPROL XL) 50 mg 24 hr tablet Take 50 mg by mouth two times a day. Active Comment on above: Take 1 tablet by gloria th once daily. Take 50 mg by mouth two times a day. nitroglycerin 0.4 mg sublingual tablet (20 sources) Nitrate Vasodilator Start: 06-02-20 End: 08-31-20 nitroglycerin sublingual (NITROQUICK) 0.4 mg SL tablet Dissolve 1 tablet under the tongue every 5 minutes as needed for chest pain. 90 tablet 1 06/02/2023 Active Comment on above: Dissolve 1 tablet un dawna the tongue every 5 minutes as needed for chest pain. pantoprazole 40 mg delayed release oral tablet (4 sources) Proton Pump Inhibitor Start: 04-21-20 End: 04-21-20 take 1 tablet by mouth once daily pantoprazole DR (PROTONIX) 40 mg tablet Take 1 tablet by mouth once daily. 90 tablet 3 04/21/2025 04/21/2026 Active pravastatin sodium 20 mg oral tablet (20 sources) HMG-CoA Reductase Inhibitor Start: 07-19-20 End: 10-12-19 take 1 tablet by mouth once daily pravastatin (PRAVACHOL) 20 mg tablet Take 20 mg by mouth once daily. 07/19/2023 Active Psyllium Seed-Sucrose (METAMUCIL, SUGAR,) (4 sources) Start: 04-23-20 End: 04-23-20 Psyllium Seed-Sucrose (METAMUCIL, SUGAR,) Take 1 Tablespoonful by mouth once daily. Take as directed. 1254 g 3 04/23/2025 04/23/2026 Active sertraline 50 mg oral tablet (20 sources) Serotonin Reuptake Inhibitor Start: 08-12-20 sertraline (ZOLOFT) 50 mg tablet Take 75 mg by mouth once daily. 08/12/2024 Active Start: 08-12-2024 End: 02-10-2025 take 1.5 tablets by mouth once daily sertraline (Zoloft) 50 MG tablet Indications: 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) TAKE 1.5 TABLETS BY MOUTH DAILY 135 tablet 1 02/10/2025 Active Start: 08-05-2024 End: 08-12-2024 take 1 tablet by mouth once daily sertraline (Zoloft) 50 MG tablet Indications: Anger , 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) TAKE 1 TABLET BY MOUTH DAILY 90 tablet 1 08/05/2024 08/12/2024 Discontinued (Reorder) Start: 04-29-2024 End: 08-05-2024 sertraline (Zoloft) 50 MG ta blet Indications: Anger , 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) Take half tablet (25 mg) daily for 2 weeks then increase to 1 tablet (50 mg) daily thereafter 30 tablet 2 04/29/2024 08/05/2024 Discontinued sulfamethoxazole 800 mg / trimethoprim 160 mg oral tablet (1 source) Dihydrofolate Reductase Inhibitor Antibacterial, Sulfonamide Antimicrobial Start: 04-26-2025 End: 05-03-2025 take 1 tablet by mouth twice daily sulfamethoxazole-trimethoprim (BACTRIM DS) 800-160 mg per tablet Take 1 tablet by mouth two times a day for 7 days. 14 tablet 04/26/2025 05/03/2025 Active traZODone hydrochloride 50 mg oral tablet (8 sources) Serotonin Reuptake Inhibitor Start: 02-10-2025 End: 04-28-2025 take 1 tablet by mouth once daily at bedtime traZODone (Desyrel) 50 MG tablet Indications: 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) TAKE 1 TABLET BY MOUTH NIGHTLY 30 MINUTES BEFORE BEDTIME. 90 tablet 1 04/28/2025 Active vitamin b12 1 mg oral tablet (20 sources) Vitamin B12 Start: 03-19-2023 take 1 tablet by mouth once daily Cyanocobalamin (Vitamin B-12) (Vitamin B-12) 1,000 mcg Tablet Active 1000 ug PO DAILY March 19, 2023 12:00am Start: 10-03-2015 End: 11-09-2015 take 1 tablet by mouth once daily VITAMIN B-12 250 MCG TABS One tablet by mouth daily CYANOCOBALAMIN [id number] Mike Joiner MD Start: 08-09-2015 End: 09-04-2017 take 1 tablet by mouth once daily Cyanocobalamin (Vitamin B-12) 2,500 MCG tablet Discontinued 2500 ug PO DAILY August 09, 2015 1:00am September 04, 2017 3:09pm Comment on above: Take 1,000 mcg by [facility] once daily. Completed/Discontinued Medications Medication Drug Class(es) Dates Sig (Normalized) Sig (Original) amiodarone hydrochloride 200 mg oral tablet (14 sources) Antiarrhythmic Start: 10-12-2015 End: 05-02-2016 take 1 tablet by mouth once daily AMIODARONE HCL 200 MG TABS One tablet by mouth daily AMIODARONE HCL [id number] Mike Joiner MD atenolol 100 mg oral tablet (15 sources) beta-Adrenergic Rajinder Start: 08-09-2015 End: 08-11-2015 take 1 tablet by mouth once daily Atenolol 50 MG tablet Discontinued 50 mg PO DAILY August 09, 2015 1:00am August 11, 2015 4:23pm carvedilol 25 mg oral tablet (20 sources) alpha-Adrenergic Rajinder, beta-Adrenergic Rajinder Start: 10-11-2015 End: 09-04-2017 take 1 tablet by mouth twice daily Carvedilol 12.5 MG tablet Discontinued 12.5 mg PO TWICE A DAY October 11, 2015 1:00am September 04, 2017 3:07pm Start: 10-03-2015 End: 07-19-2020 take 1 tablet by mouth twice daily Carvedilol (Coreg) 25 mg tablet Discontinued 25 mg PO TWICE A DAY April 26, 2018 11:40am March 25, 2019 3:00pm cephalexin 500 mg oral capsule (1 source) Cephalosporin Antibacterial Start: 03-24-2024 End: 04-16-2024 take 1 capsule by mouth every six hours Cephalexin 500 mg capsule Discontinued 500 mg PO EVERY 6 HOURS March 24, 2024 12:00am April 16, 2024 10:11am cholecalciferol 0.025 mg oral tablet (20 sources) Vitamin D Start: 08-09-2015 End: 03-26-2018 take 1 tablet by mouth once daily Cholecalciferol (Vitamin D3) 1,000 UNIT tablet Discontinued 1000 U PO DAILY August 09, 2015 1:00am March 26, 2018 1:09pm take 1 tablet by mouth once mariama y cholecalciferol (VITAMIN D3) 5,000 unit tab Take 5,000 Units by mouth once daily. Active ciprofloxacin 250 mg oral tablet (14 sources) Quinolone Antimicrobial Start: 03-25-2023 End: 03-27-2023 take 1 tablet by mouth twice daily Ciprofloxacin Hcl 250 mg Tablet Discontinued 250 mg PO TWICE A DAY March 25, 2023 12:00am March 26, 2023 12:00am March 27, 2023 12:04am digoxin 0.125 mg oral tablet (20 sources) Cardiac Glycoside Start: 09-15-2023 End: 03-24-2024 take 1 tablet by mouth once daily Digoxin 125 mcg (0.125 mg) tablet Discontinued 0.125 mg PO DAILY October 15, 2023 1:00am March 24, 2024 11:23am Start: 08-16-2023 End: 10-15-2023 take 2 tablets by mouth once daily, then take 1 tablet by mouth every six hours, then take 1 tablet by mouth once daily Digoxin 250 mcg (0.25 mg) tablet Discontinued 250 ug PO DAILY August 16, 2023 1:00am October 15, 2023 10:56am Take 2 tablets today followed by 1 more tablet 6 hours later and then 1 tablet every day. Start: 03-25-2023 End: 07-31-2023 take 1 tablet by mouth once daily Digoxin 125 mcg (0.125 mg) tablet Discontinued 125 ug PO DAILY April 18, 2023 10:07am June 22, 2023 11:23am 24 hr dilTIAZem hydrochloride 120 mg extended release oral capsule (20 sources) Calcium Channel Rajinder Start: 04-18-2023 End: 07-19-2023 take 1 capsule by mouth once daily, then take 1 capsule by mouth every twenty-four hours Diltiazem Hcl (Cardizem Cd) 120 mg capsule,extended release 24hr Discontinued 120 mg PO DAILY June 20, 2023 12:00am June 22, 2023 11:23am Start: 04-18-2023 End: 03-24-2024 take 1 capsule by mouth twice daily, then take 1 capsule by mouth every twenty-four hours Diltiazem Hcl (Cardizem Cd) 120 mg capsule,extended release 24hr Discontinued 120 mg PO TWICE A DAY July 19, 2023 2:09pm March 24, 2024 11:23am Start: 03-25-2023 End: 06-19-2023 take 1 capsule by mouth every twelve hours Diltiazem Hcl 180 mg capsule,extended release 24hr Discontinued 180 mg PO EVERY 12 HOURS April 18, 2023 10:08am June 19, 2023 10:39am Start: 10-03-2015 End: 03-25-2023 take 1 capsule by mouth once daily Diltiazem Hcl 300 mg capsule,extended release 24hr Discontinued 300 mg PO daily April 13, 2020 12:36pm March 25, 2023 10:46am Start: 10-03-2015 End: 09-04-2017 take 1 capsule by mouth twice daily Diltiazem Hcl 120 MG capsule Discontinued 120 mg PO TWICE A DAY October 11, 2015 1:21pm September 04, 2017 3:08pm Start: 10-03-2015 take 1 tablet by gloria th twice daily CARDIZEM CD 120 MG [id number] One tablet by mouth twice daily DILTIAZEM HCL COATED BEADS [id number] Mike Joiner MD Start: 10-03-2015 take 1 tablet by gloria th once daily CARDIZEM CD 120 MG [id number] One tablet by mouth daily DILTIAZEM HCL COATED BEADS [id number] Destiny Bowie RN Start: 10-03-2015 take 1 tablet by gloria th twice daily CARDIZEM CD 120 MG [id number] One tablet by mouth twice daily DILTIAZEM HCL COATED BEADS [id number] Mike Joiner MD Start: 10-03-2015 take 1 tablet by gloria th once daily CARDIZEM CD 120 MG [id number] One tablet by mouth daily DILTIAZEM HCL COATED BEADS [id number] Destiny Bowie RN Start: 08-11-2015 End: 10-11-2015 take 1 capsule by mouth once daily Diltiazem Hcl 120 MG capsule Discontinued 120 mg PO DAILY August 11, 2015 1:00am October 11, 2015 1:22pm End: 07-31-2023 take 1 capsule by mouth once daily dilTIAZem XR (Dilacor XR) 180 MG 24 hr capsule Take 180 mg by mouth daily. 0 07/31/2023 Discontinued (Therapy completed) empagliflozin 10 mg oral tablet (20 sources) Sodium-Glucose Cotransporter 2 Inhibitor Start: 03-25-2023 End: 07-31-2023 take 1 tablet by mouth once daily Empagliflozin (Jardiance) 10 mg tablet Discontinued 10 mg PO DAILY April 18, 2023 10:08am May 21, 2023 9:27am glipiZIDE 5 mg oral tablet (20 sources) Sulfonylurea Start: 08-09-2015 End: 03-25-2019 take 1 tablet by mouth once daily Glipizide 5 MG tablet Discontinued 5 mg PO DAILY@729August 09, 2015 1:00am March 25, 2019 2:59pm 3 ml insulin detemir 100 unt/ml pen injector (20 sources) Insulin Analog Start: 09-27-2022 End: 07-31-2023 Levemir FlexTouch 100 UNIT/ML pen Start: 03-26-2018 End: 03-24-2024 Insulin Detemir U-100 100 un it/mL (3 mL) insulin pen Discontinued 8 U SC DAILY March 26, 2018 1:09pm March 24, 2024 11:23am Start: 10-11-2015 End: 03-26-2018 Insulin Detemir U-100 100 UNITS/ML insulin pen Discontinued 0 U SC DAILY October 11, 2015 1:00am March 26, 2018 1:09pm Start: 10-11-2015 End: 03-26-2018 Insulin Detemir U-100 Discontinued 0 UNITS SC DAILY October 11, 2015 12:00am March 26, 2018 12:09pm Start: 10-03-2015 LEVEMIR 100 UN IT/ML SOLN Take as directed INSULIN DETEMIR [id number] Destiny Bowie RN Start: 10-03-2015 LEVEMIR 100 UN IT/ML SOLN Take as directed INSULIN DETEMIR [id number] Destiny Bowie RN inject 8 [IU] by sub cutaneous injection once daily insulin detemir (Levemir) 100 UNIT/ML injection Inject 8 Units under the skin Nightly. Active Comment on above: Inject 8 Units subcu taneously once daily. In the morning lovastatin 20 mg oral tablet (7 sources) HMG-CoA Reductase Inhibitor Start: 6 take 1 tablet by mouth once daily LOVASTATIN 20 MG TABS One tablet by mouth daily LOVASTATIN [id number] Destniy Bowie RN olmesartan medoxomil 20 mg oral tablet (20 sources) Angiotensin 2 Receptor Rajinder Start: 3 End: 3 take 10 mg by mouth once daily Olmesartan 20 mg tablet Discontinued 10 mg PO DAILY April 18, 2023 10:10am June 19, 2023 10:40am On Hold: low bp per daughter Start: 03-19-2023 End: 06-19-2023 take 10 mg by mouth once daily Olmesartan Discontinued 10 MG PO DAILY April 18, 2023 9:10am June 19, 2023 9:40am On Hold: low bp per daughter End: 07-31-2023 take 0.5 tablet by mouth once daily olmesartan (BENIcar) 20 MG tablet Take 20 mg by mouth daily. Take 1/2 tablet by mouth daily 0 07/31/2023 Discontinued (Therapy completed) risperiDONE 1 mg oral tablet (20 sources) Atypical Antipsychotic Start: 04-24-2023 End: 07-31-2023 take 0.5 tablet by mouth once daily as needed for sleep, then take 0.5 tablet by mouth once daily as needed for sleep, then take 0.5 tablet by mouth once daily as needed for sleep risperiDONE (RisperDAL) 1 MG tablet Indications: insomnia Take 0.5 tablets (0.5 mg) by mouth Nightly. Take half tablet nightly for 1 week then half tablet nightly as needed for sleep 30 tablet 1 04/24/2023 07/31/2023 Discontinued (Therapy completed) Start: 03-25-2023 End: 07-31-2023 take 1 tablet by mouth at bedtime Risperidone 1 mg tablet Discontinued 1 mg PO AT BEDTIME June 22, 2023 12:00am July 09, 2023 1:03pm Comment on above: Take 1 mg by mouth d aily at bedtime. rosuvastatin calcium 10 mg oral tablet (20 sources) HMG-CoA Reductase Inhibitor Start: 03-19-20 End: 07-05-20 24 take 1 tablet by mouth once daily Rosuvastatin 10 mg tablet Discontinued 10 mg PO DAILY 90 April 09, 2023 10:30am June 19, 2023 10:40am Comment on above: Take 1 tablet by gloria once daily. spironolactone 25 mg oral tablet (14 sources) Aldosterone Antagonist Start: 10-03-19 16 End: 10-06-19 16 take 1 tablet by mouth once daily ALDACTONE 25 MG TABS One tablet by mouth daily SPIRONOLACTONE [id number] Destiny Bowie RN CHOLECALCIFEROL (7 sources) Start: 10-03-19 16 take 1 tablet by mouth once daily VITAMIN D 1000 UNIT TABS One tablet by mouth daily CHOLECALCIFEROL [id number] Destiny Bowie RN Start: 10-03-2015 take 1 tablet by gloria th once daily VITAMIN D 1000 UNIT TABS One tablet by mouth daily CHOLECALCIFEROL [id number] Destiny Bowie RN Start: 10-03-2015 take 1 tablet by gloria th once daily VITAMIN D 1000 UNIT TABS One tablet by mouth daily CHOLECALCIFEROL [id number] Destiny Bowie RN Problems Active Problems Problem Classification Problem Date Documented Da te Episodic/Chronic Cardiac dysrhythmias (20 sources) Persistent atrial fibrillation; 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: [Atrial fibrillation] Onset: 10-03-2015 Resolved: 04-18-2025 03-08-2016 Chronic Cardiac dysrhythmias (20 sources) Bradycardia; 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: [Bradycardia, unspecified] Onset: 08-17-2023 03-19-2023 Episodic Chronic kidney disease (20 sources) Chronic kidney disease; 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: [Chronic kidney disease, unspecified] Onset: 04-18-2025 03-20-2023 Chronic Chronic kidney disease (1 source) Chronic kidney disease; 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: [Chronic kidney disease, stage 3 unspecified] Onset: 04-09-2025 Complications of surgical procedures or medical care (1 source) Vascular complications following infusion, transfusion and therapeutic injection, initial encounter; 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: [Intravenous infiltration, initial encounter] Onset: 04-26-2025 Episodic Conduction disorders (20 sources) Incomplete left bundle branch block; 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: [Left bundle-branch block, unspecified] Onset: 04-09-2023 Resolved: 04-19-2025 09-04-2017 Chronic Congestive heart failure; nonhypertensive (20 sources) Congestive heart failure; 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: [Chronic diastolic heart failure] Onset: 10-03-2015 Resolved: 04-19-2025 10-03-2015 Chronic Coronary atherosclerosis and other heart disease (20 sources) Coronary arteriosclerosis; 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: [Atherosclerotic heart disease of [place] coronary artery without angina pectoris] Onset: 05-29-2023 Resolved: 01-04-2024 05-29-2023 Chronic Comment on above: S/P stenting to prox imal ID and distal RCA on 06/01/2023 at [facility]; Deficiency and other anemia (4 sources) Anemia; 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: [Anemia, unspecified] Onset: 04-18-2025 04-18-2025 Episodic Deficiency and other anemia (1 source) Iron deficiency anemia, unspecified; 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: [Iron deficiency anemia, unspecified iron deficiency anemia type] Onset: 04-18-2025 Episodic Delirium, dementia, and amnestic and other cognitive disorders (20 sources) Senile dementia; 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] Onset: 02-10-2025 07-31-2023 Chronic Diabetes mellitus with complications (10 sources) Renal disorder due to type 2 diabetes mellitus; 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: [Type 2 diabetes mellitus with unspecified complications] Onset: 10-03-2015 10-03-2015 Chronic Diabetes mellitus without complication (20 sources) Diabetes mellitus; 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: [Type 2 diabetes mellitus without complications] Onset: 12-21-2014 05-29-2023 Chronic Disorders of lipid metabolism (20 sources) Hyperlipidemia; 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: [Hyperlipidemia, unspecified] Onset: 10-03-2015 10-03-2015 Chronic E Codes: Fall (1 source) Unspecified fall, initial encounter; 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: [Unspecified fall, initial encounter] Onset: 08-31-2024 Episodic E Codes: Place of occurrence (1 source) Unspecified place in unspecified non-institutional (private) residence as the place of occurrence of the external cause; 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: [Unspecified place in unspecified non-institutional (private) residence as the place of occurrence of the external cause] Onset: 08-31-2024 Episodic Esophageal disorders (1 source) Gastro-esophageal reflux disease without esophagitis; 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: [Gastro-esophageal reflux disease without esophagitis] Onset: 05-08-2025 Chronic Essential hypertension (20 sources) Hypertensive disorder; 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: [Essential hypertension] Onset: 09-28-2008 Resolved: 04-18-2025 10-03-2015 Chronic Fluid and electrolyte disorders (20 sources) Hypokalemia; 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: [Hypokalemia] 03-23-2023 Episodic Genitourinary symptoms and ill-defined conditions (1 source) Hematuria, unspecified; 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: [Hematuria, unspecified type] Onset: 04-18-2025 Episodic Heart valve disorders (20 sources) Nonrheumatic mitral (valve) insufficiency; 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: [Nonrheumatic tricuspid (valve) insufficiency] Onset: 10-03-2015 10-03-2015 Chronic Hypertension with complications and secondary hypertension (1 source) Hypertensive heart disease with heart failure; 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: [Hypertensive heart disease with heart failure] Onset: 07-20-2024 Chronic Nutritional deficiencies (20 sources) Vitamin D deficiency; 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: [Vitamin D deficiency, unspecified] Onset: 10-15-2008 10-15-2008 Chronic Nutritional deficiencies (1 source) Deficiency of other specified B group vitamins; 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: [Deficiency of other specified B group vitamins] Onset: 04-09-2025 Episodic Osteoporosis (1 source) Age-related osteoporosis without current pathological fracture; 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: [Age-related osteoporosis without current pathological fracture] Onset: 08-19-2024 Chronic Other aftercare (7 sources) 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; 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: [Other detention (current) drug therapy] Onset: 10-03-2015 10-03-2015 Episodic Other aftercare (1 source) Long-term current use of anticoagulant; 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: [jail (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 of 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] 11-19-2024 Episodic Other and ill-defined heart disease (14 sources) Left ventricular systolic dysfunction; 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: [Heart disease, unspecified] 03-24-2023 Chronic Other and ill-defined heart disease (14 sources) Diastolic dysfunction; 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: [Other ill-defined heart diseases] 03-21-2023 Chronic Other and ill-defined heart disease (20 sources) Other ill-defined heart diseases; 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: [Heart disease, unspecified] Onset: 04-16-2024 03-25-2023 Chronic Other and ill-defined heart disease (20 sources) Heart disease, unspecified; 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: [Heart disease, unspecified] Onset: 04-16-2024 03-25-2023 Chronic Other and ill-defined heart disease (12 sources) Depression of left ventricular systolic function; 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: [Heart disease, unspecified] 04-09-2023 Chronic Other endocrine disorders (20 sources) Hyperparathyroidism ; 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: [Hyperparathyroidis m, unspecified] Onset: 01-01-2007 01-01-2007 Chronic Other fractures (4 sources) Fracture of coccyx; 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: [Fracture of coccyx, initial encounter for closed fracture] Onset: 04-19-2025 04-19-2025 Episodic Other fractures (1 source) Fracture of coccyx, initial encounter for closed fracture; 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: [Closed fracture of coccyx, initial encounter ([facility])] Onset: 04-18-2025 Episodic Other gastrointestinal disorders (1 source) Dysphagia, unspecified; 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: [Dysphagia, unspecified type] Onset: 04-18-2025 Episodic Other hematologic conditions (2 sources) Raised cardiac enzyme or marker; 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: [Other specified abnormalities of plasma proteins] Onset: 05-29-2023 05-29-2023 Episodic Other injuries and conditions due to external causes (1 source) Other specified injuries of head, initial encounter; 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: [Other specified injuries of head, initial encounter] Onset: 08-31-2024 Episodic Other lower respiratory disease (15 sources) Dyspnea; 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: [Shortness of breath] 03-24-2019 Episodic Other lower respiratory disease (14 sources) Hypoxia; 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: [Hypoxemia] 03-21-2023 Episodic Other lower respiratory disease (8 sources) Hypoxemia; 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: [Hypoxemia] 03-25-2023 Episodic Other lower respiratory disease (1 source) Shortness of breath; 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: [Exertional shortness of breath] Onset: 04-18-2025 Episodic Other nervous system disorders (20 sources) Toxic metabolic encephalopathy; 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: [Toxic metabolic encephalopathy] 03-21-2023 Episodic Other non-traumatic joint disorders (1 source) Pain in left hip; 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: [Pain in left hip] Onset: 08-31-2024 Episodic Other nutritional; endocrine; and metabolic disorders (7 sources) Body mass index (BMI) 32.0-32.9, adult; 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: [Body mass index (BMI) 32.0-32.9, adult] Onset: 10-03-2015 10-03-2015 Chronic Pulmonary heart disease (20 sources) Other secondary pulmonary hypertension; 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: [Pulmonary arterial hypertension] Onset: 10-03-2015 10-03-2015 Chronic Residual codes; unclassified (2 sources) Amnesia; 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: [Other amnesia] 04-24-2023 Episodic Residual codes; unclassified (1 source) Insomnia; 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: [Insomnia, unspecified] 04-24-2023 Episodic Residual codes; unclassified (1 source) Confusional state; 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: [Disorientation, unspecified] 04-01-2024 Episodic Residual codes; unclassified (2 sources) Disorientation, unspecified; 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: [Disorientation, unspecified] Onset: 03-30-2024 Episodic Syncope (20 sources) Syncope; 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: [Syncope and collapse] 03-19-2023 Episodic Thyroid disorders (1 source) Hypothyroidism, unspecified; 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: [Hypothyroidism, unspecified] Onset: 04-09-2025 Chronic Unclassified (7 sources) Drug therapy finding; 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: [jail (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 of 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] Onset: 10-03-2015 10-03-2015 Unclassified (2 sources) Long-term drug therapy; 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: [Other detention (current) drug therapy] Onset: 10-03-2015 10-03-2015 Unclassified (2 sources) Other persistent atrial fibrillation; 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: [Other persistent atrial fibrillation] Onset: 04-09-2023 Unclassified (1 source) Unspecified fall, initial encounter Onset: 08-31-2024 Unclassified (1 source) Unspecified place in unspecified non-institutional (private) residence as the place of occurrence of the external cause Onset: 08-31-2024 Unclassified (1 source) Other specified injuries of head, initial encounter Onset: 08-31-2024 Unclassified (1 source) Pain in left hip Onset: 08-31-2024 Unclassified (1 source) Dementia in other diseases classified elsewhere, moderate, with agitation (HCC); 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: [Dementia in other diseases classified elsewhere, moderate, with agitation (HCC)] Onset: 02-10-2025 Unclassified (1 source) Dementia in other diseases classified elsewhere, moderate, with other behavioral disturbance (HCC); 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: [Dementia in other diseases classified elsewhere, moderate, with other behavioral disturbance (HCC)] Onset: 08-12-2024 Unclassified (1 source) Dementia in other diseases classified elsewhere, moderate, without behavioral disturbance, psychotic disturbance, mood disturbance, and anxiety (HCC); 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: [Dementia in other diseases classified elsewhere, moderate, without behavioral disturbance, psychotic disturbance, mood disturbance, and anxiety (HCC)] Onset: 04-29-2024 Unclassified (2 sources) Permanent atrial fibrillation; 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: [Permanent atrial fibrillation (HCC)] Onset: 11-19-2023 Urinary tract infections (20 sources) Escherichia coli urinary tract infection; 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: [Urinary tract infection, site not specified] 03-22-2023 Episodic Past or Other Problems Problem Classification Problem Date Documented Date Episodic/Chronic Allergic reactions (14 sources) Contact dermatitis; 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: [Unspecified contact dermatitis, unspecified cause] Onset: 10-11-2007 Resolved: 10-15-2008 10-15-2008 Episodic Anxiety disorders (8 sources) Feeling angry; 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: [Irritability and anger] Onset: 08-12-2024 04-29-2024 Episodic Aspiration pneumonitis; food/vomitus (4 sources) Aspiration pneumonia; 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: [Pneumonitis due to inhalation of food and vomit] Onset: 04-19-2025 Resolved: 04-21-2025 04-21-2025 Episodic Coronary atherosclerosis and other heart disease (15 sources) Presence of coronary angioplasty implant and graft; 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: [Percutaneous transluminal coronary angioplasty status] Onset: 04-16-2024 07-09-2023 Episodic Malaise and fatigue (20 sources) Fatigue; 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: [Other fatigue] Onset: 03-27-2016 Resolved: 04-18-2025 03-27-2016 Episodic Nonspecific chest pain (20 sources) Chest pain; 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: [Chest pain, unspecified] Onset: 02-20-2017 Resolved: 01-04-2024 02-20-2017 Episodic Other aftercare (20 sources) Drug therapy finding; 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: [jail (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 of 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] Onset: 11-19-2023 Resolved: 04-19-2025 11-19-2023 Episodic Other aftercare (1 source) 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; 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: [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 of anticoagulant] Onset: 11-19-2024 Episodic Other bone disease and musculoskeletal deformities (20 sources) Disorder of skeletal system; 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: [Disorder of bone, unspecified] Onset: 07-20-2006 07-20-2006 Episodic Other nutritional; endocrine; and metabolic disorders (7 sources) Body mass index (BMI) 29.0-29.9, adult; 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: [Body mass index (BMI) 29.0-29.9, adult] Onset: 10-03-2015 03-08-2016 Episodic Other screening for suspected conditions (not mental disorders or infectious disease) (20 sources) Serum creatinine raised; 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: [Other specified abnormal findings of blood chemistry] Onset: 05-29-2023 Resolved: 04-19-2025 03-20-2023 Episodic Other skin disorders (14 sources) Ingrowing nail; 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: [Ingrowing nail] Onset: 08-23-2007 Resolved: 10-15-2008 10-15-2008 Episodic Other skin disorders (1 source) Xerosis cutis; 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: [Xerosis cutis] Onset: 03-10-2024 Episodic Pneumonia (except that caused by tuberculosis or sexually transmitted disease) (5 sources) Community acquired pneumonia; 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: [Pneumonia, unspecified organism] Onset: 04-18-2025 Resolved: 04-19-2025 04-19-2025 Episodic Residual codes; unclassified (7 sources) FH: Hypertension; 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: [Family history of ischemic heart disease and other diseases of the circulatory system] 10-03-2015 Episodic Residual codes; unclassified (20 sources) At risk of delirium; 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: [Other specified personal risk factors, not elsewhere classified] Onset: 05-29-2023 05-29-2023 Episodic Residual codes; unclassified (20 sources) Other specified personal risk factors, not elsewhere classified; 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: [Other specified personal history presenting hazards to health] Onset: 11-19-2023 Resolved: 04-18-2025 11-19-2023 Episodic Residual codes; unclassified (20 sources) History of ablation of atrioventricular node; 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: [Other specified postprocedural states] Onset: 11-19-2023 11-20-2023 Episodic Residual codes; unclassified (4 sources) Altered mental status; 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: [Altered mental status, unspecified] Onset: 04-18-2025 Resolved: 04-19-2025 04-19-2025 Episodic Skin and subcutaneous tissue infections (15 sources) Cellulitis and abscess of toe; 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: [Cellulitis of unspecified toe] Onset: 11-06-2007 Resolved: 10-15-2008 10-15-2008 Episodic Spondylosis; intervertebral disc disorders; other back problems (20 sources) Low back pain; 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: [Lumbago] Onset: 09-28-2008 Resolved: 04-18-2025 09-28-2008 Episodic Unclassified (1 source) Dementia in other diseases classified elsewhere, moderate, with agitation (HCC); 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: [Dementia in other diseases classified elsewhere, moderate, with agitation (HCC)] Onset: 02-10-2025 Unclassified (1 source) Dementia in other diseases classified elsewhere, moderate, with other behavioral disturbance (HCC); 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: [Dementia in other diseases classified elsewhere, moderate, with other behavioral disturbance (HCC)] Onset: 08-12-2024 Unclassified (1 source) Dementia in other diseases classified elsewhere, moderate, without behavioral disturbance, psychotic disturbance, mood disturbance, and anxiety (HCC); 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: [Dementia in other diseases classified elsewhere, moderate, without behavioral disturbance, psychotic disturbance, mood disturbance, and anxiety (HCC)] Onset: 04-29-2024 Results Test Name Value Interpretation Reference Range Facility CBC W Auto Differential pane l (Bld)on 05-08-2025 Basophils (Bld) [#/Vol] 0.03 10*3/uL Normal <0.11 [facility] Comment on above: Order Comment: Speci men Type: BLOOD SPECIMEN Ordering Facility: [facility] Address: [address] [place] [address] Performed By: #### 5 7021-8 #### [facility] CLIA [id number] [address] [place] [address] [place] Basophils/100 WBC (Bld) 0.5 % Normal [facility] Comment on above: Order Comment: Speci men Type: BLOOD SPECIMEN Ordering Facility: [facility] Address: [address] [place] [address] Performed By: #### 5 7021-8 #### [facility] CLIA [id number] [address] [place] [address] [place] Differential cell count method Nom (Bld) Auto Normal [facility] Comment on above: Order Comment: Speci men Type: BLOOD SPECIMEN Ordering Facility: [facility] Address: [address] [place] [address] Performed By: #### 5 7021-8 #### [facility] CLIA [id number] [address] [place] [address] [place] Eosinophils (Bld) [#/Vol] 0.09 10*3/uL Normal <0.46 [facility] Comment on above: Order Comment: Speci men Type: BLOOD SPECIMEN Ordering Facility: [facility] Address: [address] [place] [address] Performed By: #### 5 7021-8 #### [facility] CLIA [id number] [address] [place] [address] [place] Eosinophils/100 WBC (Bld) 1.4 % Normal [facility] Comment on above: Order Comment: Speci men Type: BLOOD SPECIMEN Ordering Facility: [facility] Address: [address] [place] [address] Performed By: #### 5 7021-8 #### [facility] CLIA [id number] [address] [place] [address] [place] Erythrocyte distribution width (RBC) [Ratio] 23.2 % High 11.5-15.0 [facility] Comment on above: Order Comment: Speci men Type: BLOOD SPECIMEN Ordering Facility: [facility] Address: [address] [place] [address] Performed By: #### 5 7021-8 #### [facility] CLIA [id number] [address] [place] [address] [place] Hematocrit (Bld) [Volume fraction] 37.4 % Normal 36.0-46.0 [facility] Comment on above: Order Comment: Speci men Type: BLOOD SPECIMEN Ordering Facility: [facility] Address: [address] [place] [address] Performed By: #### 5 7021-8 #### [facility] CLIA [id number] [address] [place] [address] [place] Hemoglobin (Bld) [Mass/Vol] 11.5 g/dL Normal 11.5-15.5 [facility] Comment on above: Order Comment: Speci men Type: BLOOD SPECIMEN Ordering Facility: [facility] Address: [address] [place] [address] Performed By: #### 5 7021-8 #### [facility] CLIA [id number] [address] [place] [address] [place] Immature granulocytes (Bld) [#/Vol] 10*3/uL Normal <0.10 [facility] Comment on above: Order Comment: Speci men Type: BLOOD SPECIMEN Ordering Facility: [facility] Address: [address] [place] [address] Performed By: #### 5 7021-8 #### [facility] CLIA [id number] [address] [place] [address] [place] Immature granulocytes/100 WBC (Bld) 0.3 % Normal [facility] Comment on above: Order Comment: Speci men Type: BLOOD SPECIMEN Ordering Facility: [facility] Address: [address] [place] [address] Performed By: #### 5 7021-8 #### [id number] [address] [place] [address] [place] Lymphocytes (Bld) [#/Vol] 1.08 10*3/uL Normal 1.00-4.00 [facility] Comment on above: Order Comment: Speci men Type: BLOOD SPECIMEN Ordering Facility: [facility] Address: [address] [place] [address] Performed By: #### 5 7021-8 #### [facility] [id number] [address] [place] [address] [place] Lymphocytes/100 WBC (Bld) 17.3 % Normal [facility] Comment on above: Order Comment: Speci men Type: BLOOD SPECIMEN Ordering Facility: [facility] Address: [address] [place] [address] Performed By: #### 5 7021-8 #### [facility] [id number] [address] [place] [address] [place] MCH (RBC) [Entitic mass] 26.3 pg Normal 26.0-34.0 [facility] Comment on above: Order Comment: Speci men Type: BLOOD SPECIMEN Ordering Facility: [facility] Address: [address] [place] [address] Performed By: #### 5 7021-8 #### [facility] CLIA [id number] [address] [place] [address] [place] MCHC (RBC) [Mass/Vol] 30.7 g/dL Normal 30.5-36.0 [facility] Comment on above: Order Comment: Speci men Type: BLOOD SPECIMEN Ordering Facility: [facility] Address: [address] [place] [address] Performed By: #### 5 7021-8 #### [facility] CLIA [id number] [address] [place] [address] [place] MCV (RBC) [Entitic vol] 85.6 fL Normal 80.0-100.0 [facility] Comment on above: Order Comment: Speci men Type: BLOOD SPECIMEN Ordering Facility: [facility] Address: [address] [place] [address] Performed By: #### 5 7021-8 #### [facility] CLIA [id number] [address] [place] [address] [place] Monocytes (Bld) [#/Vol] 0.47 10*3/uL Normal <0.87 [facility] Comment on above: Order Comment: Speci men Type: BLOOD SPECIMEN Ordering Facility: [facility] Address: [address] [place] [address] Performed By: #### 5 7021-8 #### [facility] CLIA [id number] [address] [place] [address] [place] Monocytes/100 WBC (Bld) 7.5 % Normal [facility] Comment on above: Order Comment: Speci men Type: BLOOD SPECIMEN Ordering Facility: [facility] Address: [address] [place] [address] Performed By: #### 5 7021-8 #### [facility] CLIA [id number] [address] [place] [address] [place] Neutrophils (Bld) [#/Vol] 4.56 10*3/uL Normal 1.45-7.50 [facility] Comment on above: Order Comment: Speci men Type: BLOOD SPECIMEN Ordering Facility: [facility] Address: [address] [place] [address] Performed By: #### 5 7021-8 #### [facility] CLIA [id number] [address] [place] [address] [place] Neutrophils/100 WBC (Bld) 73.0 % Normal [facility] [facility] Comment on above: Order Comment: Speci men Type: BLOOD SPECIMEN Ordering Facility: [facility] Address: [address] [place] [address] Performed By: #### 5 7021-8 #### [facility] [id number] [address] [place] [address] [place] Nucleated RBC (Bld) [#/Vol] 10*3/uL Normal <0.01 [facility] Comment on above: Order Comment: Speci men Type: BLOOD SPECIMEN Ordering Facility: [facility] Address: [address] [place] [address] Performed By: #### 5 7021-8 #### [facility] [id number] [address] [place] [address] [place] Nucleated RBC/100 WBC (Bld) [Ratio] 0.0 /100 WBC Normal [facility] Comment on above: Order Comment: Speci men Type: BLOOD SPECIMEN Ordering Facility: [facility] Address: [address] [place] [address] Performed By: #### 5 7021-8 #### [facility] [id number] [address] [place] [address] [place] Platelet mean volume (Bld) [Entitic vol] 8.6 fL Low 9.0-12.7 [facility] Comment on above: Order Comment: Speci men Type: BLOOD SPECIMEN Ordering Facility: [facility] Address: [address] [place] [address] [place] [address] Performed By: #### 5 7021-8 #### [facility] CLIA [id number] [address] [place] [address] [place] Platelets (Bld) [#/Vol] 254 10*3/uL Normal 150-400 [facility] Comment on above: Order Comment: Speci men Type: BLOOD SPECIMEN Ordering Facility: [facility] Address: [address] [place], [place] [address] Performed By: #### 5 7021-8 #### [facility] CLIA [id number] [address] [place] [address] [facility] OF [place] RBC (Bld) [#/Vol] 4.37 10*6/uL Normal 3.90-5.20 [facility] Comment on above: Order Comment: Speci men Type: BLOOD SPECIMEN Ordering Facility: [facility] Address: [address] [place], [place] [address] Performed By: #### 5 7021-8 #### [facility] CLIA [id number] [address] [place] [address] [place] WBC (Bld) [#/Vol] 6.25 10*3/uL Normal 3.70-11.00 [facility] Comment on above: Order Comment: Speci men Type: BLOOD SPECIMEN Ordering Facility: [facility] Address: [address] [place], [place] [address] Performed By: #### 5 7021-8 #### [facility] CLIA [id number] [address] [place] [address] OF [place]DA CNOVSPon 05-08-2025 CNOVSP Visit (SP) Office ([facility]) AMALIA CORRAL ([id number]) 1950 F Date Time Provider Department 05/08/25 10:30 AM LISA CLEMENTE During your visit today, we recorded the following information about you: Temperature Pulse Blood pressure Weight 98.9 degrees 71/minute 115/68 62.1 kg Height 1.626 m Lisa Clemente 05/08/2025 4:13 PM Addendum Progress Note Amalia Corral 1950 Encounter date: 05/08/2025 HPI: Amalia Corral is a 74 year old female presenting with her daughter Aric as a new referral for anemia from ED physician following recent visit. Ms. Corral has a PMHx of CAD, HTN, chronic afib, St 3 CKD, T2DM, osteopenia, and dementia. Ms. Corral lives with her daughter federal java developer at her house. Following a brief respite care stay her daughter noticed worsening cognitive decline prompting her to go [place] ED. During admission she was found to have PNA, UTI, anemia, and a fractured tailbone following a fall. She had a complete GI work up and was found to have ulcers and was started on Protonix and iron supplementation. jail anticoagulation use. She was taken off aspirin. Hgb on admission was 9.9. B12 normal, ferritin 67.7, Iron 29, TIBC 273, Tsat 10.6. Denies Shortness of Breath, CP. No current s/s of infection. Kidney function has been stable for many years. She has a history of internal and external hemorrhoids with occasional bright red blood per rectum, but denies melena or dark stools. She has been experiencing increased stool incontinence since her hospitalization following scopes. She does have upcoming follow up with GI. She denies any dietary restrictions. No OTCs or supplements.She reports a two-year history of pica, specifically craving and chewing ice, which has led to dental issues. She also reports restless legs and occasional tingling and erratic jerking movements at night. She has a family history of polycystic kidney disease. She denies any personal history of cancer. No known personal or family hx or blood or bleeding disorders. PAST MEDICAL HISTORY Diagnosis Date Acute rheumatic heart disease, unspecified Aortic valve insufficiency Atrial fibrillation (HCC) Diabetes mellitus type 2 in obese 03/2012 Heart disease, rheumatic History of PTCA 06/01/2023 LAD AND RCA Hyperlipemia Hypertension Hypothyroid Mitral valve regurgitation Osteopenia Pulmonary hypertension (HCC) Unspecified vitamin D deficiency 10/15/2008 Vit D level 10/09: 15.7, started weekly Vitamin D. PAST SURGICAL HISTORY Procedure Laterality Date AV YESSICA ABLATION 11/19/2023 With Micra implant; Dr. Strong at [facility] CARDIOVERSION x2 CHOLECYSTECTOMY 10/01/1982 Cholecystectomy MICRA AV LEADLESS PACEMAKER 11/19/2023 With AVN catheter ablation; Dr. Strong at [facility] PERCUTANEOUS CORONARY INTERVENTION 06/01/2023 LAD AND RCA TOTAL ABDOMINAL HYSTERECT W/WO RMVL TUBE OVARY 10/01/1975 Hysterectomy, [facility] Current Outpatient Medications Medication Sig Dispense Refill furosemide (LASIX) 20 mg tablet Take 1 tablet by mouth once daily. 90 tablet 3 Psyllium Seed-Sucrose (METAMUCIL, SUGAR,) Take 1 Tablespoonful by mouth once daily. Take as directed. 1254 g 3 ferrous sulfate (IRON) 325 mg (65 mg iron) tablet Take 1 tablet by mouth every other day. [address] (PROTONIX) 40 mg tablet Take 1 tablet by mouth once daily. 90 tablet 3 traZODone (DESYREL) 50 mg tablet Take 50 mg by mouth daily at bedtime. FARXIGA 10 mg tablet Take 1 tablet by mouth once daily. 90 tablet 1 losartan (COZAAR) 25 mg tablet Take 25 mg by mouth once daily. metoprolol tartrate, short acting, (LOPRESSOR) 50 mg tablet Take 50 mg by mouth two times a day. acetylcysteine (NAC) 600 mg capsule Take 600 mg by mouth two times a day. cholecalciferol (VITAMIN D3) 5,000 unit tab Take 5,000 Units by mouth once daily. BASAGLAR KENDALPEN U-100 INSULIN 100 unit/mL (3 mL) INJECT 6 UNITS SUBCUTANEOUSLY TWICE DAILY donepezil (ARICEPT) 10 mg tablet Take 10 mg by mouth daily at bedtime. sertraline (ZOLOFT) 50 mg tablet Take 75 mg by mouth once daily. risperiDONE (RISPERDAL) 1 mg tablet Take 1 mg by mouth as needed. pravastatin (PRAVACHOL) 20 mg tablet Take 20 mg by mouth once daily. metFORMIN (GLUCOPHAGE) 500 mg tablet Take 1,000 mg by mouth twice daily with meals. nitroglycerin sublingual (NITROQUICK) 0.4 mg SL tablet Dissolve 1 tablet under the tongue every 5 minutes as needed for chest pain. 90 tablet 1 cyanocobalamin (VITAMIN B-12) 1,000 mcg tab Take 1,000 mcg by mouth once daily. Levothyroxine 25 mcg cap Take 25 mcg by mouth once daily. apixaban (ELIQUIS) 5 mg tab tab(s) Take 1 tablet by mouth twice daily. 60 tablet 12 No current facility-administered medications for this visit. ALLERGIES Allergen Reactions Marco Inhibitors Cough Losartan Potassium Rash At higher do (more content not included)... Normal [facility] 05-08-2025 KANDYN Telephone (JOSE) AMALIA CORRAL ([id number]) 1950 F Date Time Provider Department 05/08/25 LIZA ORTIZ During your visit today, we recorded the following information about you: Pauline Guillen RN 05/08/2025 3:39 PM Signed BP 05/07/25 80/50 05/08/25 90/60 Patient was recently in the hospital for UTI, fractured coccyx, and pneumonia. BP has been running low since discharge. Daughter has been monitoring it and holding metoprolol. Patient seen by Lisa Clemente today and BP was 115/68. Daughter instructed to continue to monitor the BP and keep a log. She is to call in the results early next week. Patient currently ordered Metoprolol 50mg BID. Daughter asking about decreasing her dose. Please review and advise. REAL Antonio Danelle, RN 05/14/2025 8:24 AM Signed She can decrease to 25 (1/2 of the 50 mg) bid. Should not effect the BP unless heart rate is less than 60 bpm Pauline Reyes RN 05/14/2025 8:24 AM Signed Called and spoke with patients daughterAric. Patient was seen by PCP yesterday they d/c'd the metoprolol. The patient has not taken the metoprolol for a while due to bp being under 100 systolic. Daughter is asking if you would like them to restart it at the lower dose? Pauline Guillen RN Allergies As of Date: 05/08/2025 Noted Allergy Reaction MARCO INHIBITORS 04/05/2009 3 - Cough LOSARTAN POTASSIUM 11/24/2014 2 - Rash Comments: At higher doses (ok at low dose) Date Reviewed: 05/08/2025 Reviewed by: Luis Mckinney MA - Fully Assessed Reason for Visit: Patient Update [1234] Prescriptions as of 06/08/2025 - furosemide (LASIX) 20 mg tablet Take 1 tablet by mouth once daily. - Psyllium Seed-Sucrose (METAMUCIL, SUGAR,) Take 1 Tablespoonful by mouth once daily. Take as directed. - ferrous sulfate (IRON) 325 mg (65 mg iron) tablet Take 1 tablet by mouth every other day. - pantoprazole DR (PROTONIX) 40 mg tablet Take 1 tablet by mouth once daily. - traZODone (DESYREL) 50 mg tablet Take 50 mg by mouth daily at bedtime. - FARXIGA 10 mg tablet Take 1 tablet by mouth once daily. - losartan (COZAAR) 25 mg tablet Take 25 mg by mouth once daily. - metoprolol tartrate, short acting, (LOPRESSOR) 50 mg tablet Take 50 mg by mouth two times a day. - acetylcysteine (NAC) 600 mg capsule Take 600 mg by mouth two times a day. - cholecalciferol (VITAMIN D3) 5,000 unit tab Take 5,000 Units by mouth once daily. - BASAGLAR KWIKPEN U-100 INSULIN 100 unit/mL (3 mL) INJECT 6 UNITS SUBCUTANEOUSLY TWICE DAILY - donepezil (ARICEPT) 10 mg tablet Take 10 mg by mouth daily at bedtime. - sertraline (ZOLOFT) 50 mg tablet Take 75 mg by mouth once daily. - risperiDONE (RISPERDAL) 1 mg tablet Take 1 mg by mouth as needed. - pravastatin (PRAVACHOL) 20 mg tablet Take 20 mg by mouth once daily. - metFORMIN (GLUCOPHAGE) 500 mg tablet Take 1,000 mg by mouth twice daily with meals. - nitroglycerin sublingual (NITROQUICK) 0.4 mg SL tablet Dissolve 1 tablet under the tongue every 5 minutes as needed for chest pain. - cyanocobalamin (VITAMIN B-12) 1,000 mcg tab Take 1,000 mcg by mouth once daily. - Levothyroxine 25 mcg cap Take 25 mcg by mouth once daily. - apixaban (ELIQUIS) 5 mg tab tab(s) Take 1 tablet by mouth twice daily. Meds Comments as of 11/24/2014: Fish oil 1200 mg a day Problem List As Of Date 05/08/2025 Noted Resolved Osteopenia [M89.9, M94.9] 07/20/2006 HYPERPARATHYROIDISM NOS [E21.3] 01/01/2007 INGROWING NAIL [L60.0] 08/23/2007 10/15/2008 DERMATITIS NOS [L25.9] 10/11/2007 10/15/2008 CELLULITIS, TOE NOS [L03.039, L02.619] 11/06/2007 10/15/2008 Lumbago [M54.50] 09/28/2008 04/18/2025 Essential hypertension [I10] 09/28/2008 VITAMIN D DEFICIENCY NOS [E55.9] 10/15/2008 Type 2 diabetes mellitus, with long-term curren*12/21/2014 Persistent atrial fibrillation (HCC) [I48.19] 03/27/2016 01/04/2024 Fatigue [R53.83] 03/27/2016 04/18/2025 Pulmonary HTN (HCC) [I27.20] 03/14/2017 Chest pain [R07.9] 05/29/2023 01/04/2024 Elevated troponin [R79.89] 05/29/2023 04/18/2025 Coronary artery disease involving andreafski morgan*05/29/2023 At risk for delirium [Z91.89] 05/29/2023 Unstable angina (HCC) [I20.0] 05/29/2023 01/04/2024 Permanent atrial fibrillation (HCC) [I48.21] 05/29/2023 04/18/2025 Malnutrition of moderate degree (HCC) [E44.0] 05/30/2023 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] 05/30/2023 Hyperlipidemia [E78.5] 06/01/2023 Chronic atrial fibrillation (HCC) [I48.20] 06/01/2023 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 Normal [facility] COPPER BLOODon 05-08-2025 Copper [Mass/Vol] 126 ug/dL Normal 80-155 [facility] Comment on above: Order Comment: Colten bustamante Type: BLOOD SPECIMEN Ordering Facility: [facility] Address: [address] [place] [address] Result Comment: This test was developed, and its performance characteristics determined by the [facility] Department of Pathology and Laboratory Medicine. It has not been cleared or approved by the FDA. The [facility] Department of Pathology and Laboratory Medicine is regulated under CLIA as qualified to perform high-complexity testing. This test is used for clinical purposes. It should not be regarded as investigational or for research. Performed By: #### 5 763-8, COPPER #### [facility] CLIA [id number] [address] [place] [address] [place] Comprehensive metabolic 2000 panelon 05-08-2025 Albumin [Mass/Vol] 4.5 g/dL Normal 3.9-4.9 [facility] Comment on above: Order Comment: Colten bustamante Type: BLOOD SPECIMEN Ordering Facility: [facility] Address: [address] [place] [address] Performed By: #### 2 4323-8 #### [facility] CLIA [id number] [address] [place] [address] [place] ALP [Catalytic activity/Vol] 75 U/L Normal 34-123 [facility] Comment on above: Order Comment: Speci men Type: BLOOD SPECIMEN Ordering Facility: [facility] Address: [facility] [place] [address] Performed By: #### 2 4323-8 #### [facility] CLIA [id number] [address] [place] [address] [place] ALT [Catalytic activity/Vol] 16 U/L Normal 7-38 [facility] Comment on above: Order Comment: Speci men Type: BLOOD SPECIMEN Ordering Facility: [facility] Address: [address] [place] [address] Performed By: #### 2 4323-8 #### [facility] CLIA [id number] [address] [place] [address] [place] Anion gap [Moles/Vol] 17 mmol/L High 8-15 [facility] Comment on above: Order Comment: Speci men Type: BLOOD SPECIMEN Ordering Facility: [facility] Address: [address] [place] [address] Performed By: #### 2 4323-8 #### [facility] CLIA [id number] [address] [place] [address] [place] AST [Catalytic activity/Vol] 29 U/L Normal 13-35 [facility] Comment on above: Order Comment: Speci men Type: BLOOD SPECIMEN Ordering Facility: [facility] Address: [address] [place] [address] Performed By: #### 2 4323-8 #### [facility] CLIA [id number] [address] [place] [address] [place] Bilirubin [Mass/Vol] 0.2 mg/dL Normal 0.2-1.3 [facility] Comment on above: Order Comment: Speci men Type: BLOOD SPECIMEN Ordering Facility: [facility] Address: [address] [place] [address] Performed By: #### 2 4323-8 #### [facility] CLIA [id number] [address] [place] [address] [place] Calcium [Mass/Vol] 10.1 mg/dL Normal 8.5-10.2 [facility] Comment on above: Order Comment: Speci men Type: BLOOD SPECIMEN Ordering Facility: [facility] Address: [address] [place] [address] Performed By: #### 2 4323-8 #### [facility] CLIA [id number] [address] [place] [address] [place] Chloride [Moles/Vol] 103 mmol/L Normal 98-107 [facility] Comment on above: Order Comment: Speci men Type: BLOOD SPECIMEN Ordering Facility: [facility] Address: [address] [place] [address] Performed By: #### 2 4323-8 #### [facility] CLIA [id number] [address] [place] [address] [place] CO2 [Moles/Vol] 16 mmol/L Low 22-30 [facility] Comment on above: Order Comment: Speci men Type: BLOOD SPECIMEN Ordering Facility: [facility] Address: [address] [place] [address] Performed By: #### 2 4323-8 #### [facility] CLIA [id number] [address] [place] [address] [place] Creatinine [Mass/Vol] 1.35 mg/dL High 0.58-0.96 [facility] Comment on above: Order Comment: Speci men Type: BLOOD SPECIMEN Ordering Facility: [facility] Address: [address] [place] [address] Performed By: #### 2 4323-8 #### [facility] CLIA [id number] [address] [place] [address] [place] eGFRcr SerPlBld CKD-EPI 2020 41 mL/min/1.73m??? Low >=60 [facility] Comment on above: Order Comment: Colten bustamante Type: BLOOD SPECIMEN Ordering Facility: [facility] Address: [address] [place] [address] Result Comment: Haylee mated Glomerular Filtration Rate (eGFR) is calculated using the 2020 CKD-EPI creatinine equation. This equation utilizes serum creatinine, sex, and age as parameters. The creatinine assay has traceable calibration to isotope dilution-mass spectrometry. Refer to KDIGO guidelines for clinical interpretation. In patients with unstable renal function, e.g. those with acute kidney injury, the eGFR may not accurately reflect actual GFR. Performed By: #### 2 4323-8 #### [facility] [id number] [address] [place] [address] [place] Glucose [Mass/Vol] 155 mg/dL High 74-99 [facility] Comment on above: Order Comment: Colten bustamante Type: BLOOD SPECIMEN Ordering Facility: [facility] Address: [address] [place] [address] Result Comment: The [place] Diabetes Association (ADA) provides guidance for cutoff values for fasting glucose and random glucose. The ADA defines fasting as no caloric intake for at least 8 hours. Fasting plasma glucose results between 100 to 125 mg/dL indicate increased risk for diabetes (prediabetes). Fasting plasma glucose results greater than or equal to 126 mg/dL meet the criteria for diagnosis of diabetes. In the absence of unequivocal hyperglycemia, results should be confirmed by repeat testing. In a patient with classic symptoms of hyperglycemia or hyperglycemic crisis, random plasma glucose results greater than or equal to 200 mg/dL meet the criteria for diagnosis of diabetes. Reference: Standards of Medical Care in Diabetes 2016, [place] Diabetes Association. Diabetes Care. 2016.39(Suppl 1). Performed By: #### 2 4323-8 #### [facility] [id number] [address] [place] [address] [place] Potassium [Moles/Vol] 3.9 mmol/L Normal 3.7-5.1 [facility] Comment on above: Order Comment: Speci men Type: BLOOD SPECIMEN Ordering Facility: [facility] Address: [address] [id number] Performed By: #### 2 4323-8 #### [facility] CLIA [id number] [address] [place] [address] [place] Protein [Mass/Vol] 8.0 g/dL Normal 6.3-8.0 [facility] Comment on above: Order Comment: Speci men Type: BLOOD SPECIMEN Ordering Facility: [facility] Address: [address] [place] [address] Performed By: #### 2 4323-8 #### [facility] CLIA [id number] [address] [place] [address] [place] Sodium [Moles/Vol] 136 mmol/L Normal 136-144 [facility] Comment on above: Order Comment: Speci men Type: BLOOD SPECIMEN Ordering Facility: [facility] Address: [address] [place] [address] Performed By: #### 2 4323-8 #### [facility] CLIA [id number] [address] [place] [address] [place] Urea nitrogen [Mass/Vol] 19 mg/dL Normal 7-21 [facility] Comment on above: Order Comment: Speci men Type: BLOOD SPECIMEN Ordering Facility: [facility] Address: [address] [place] [address] Performed By: #### 2 4323-8 #### [facility] CLIA [id number] [address] [place] [address] [place] Ferritin SerPl-mCncon 2024 Ferritin [Mass/Vol] 330.0 ng/mL High 14.7-205.1 [facility] Comment on above: Order Comment: Speci men Type: BLOOD SPECIMEN Ordering Facility: [facility] Address: [address] [place] [address] Performed By: #### 2 4331-1 #### [facility] CLIA [id number] [address] [place], [place] [id number] [place] [facility] CLIA [id number] [address] [place] [address] [place] #### 80912-2, 2275-12 #### [facility] CLIA [id number] [address] [place] [address] [place] Iron and Iron binding capaci ty panelon 05-08-2025 Iron [Mass/Vol] 142 ug/dL Normal 41-186 [facility] Comment on above: Order Comment: Speci men Type: BLOOD SPECIMEN Ordering Facility: [facility] Address: [address] [place] [address] Performed By: #### 2 4331-1 #### [facility] CLIA [id number] [address] [place] [address] [place] [facility] CLIA [id number] [address] [place] [address] [place] #### 29282-7, 2275-12 #### [facility] CLIA [id number] [address] [place] [address] [place] Iron binding capacity [Mass/Vol] 309 ug/dL Normal 232-386 [facility] Comment on above: Order Comment: Speci men Type: BLOOD SPECIMEN Ordering Facility: [facility] Address: [address] [place] [address] Performed By: #### 2 4331-1 #### [facility] CLIA [id number] [address] [place] [address] [place] [facility] CLIA [id number] [address] [place] [address] [place] #### 25132-9, 2275-12 #### [facility] CLIA [id number] [address] [place], [place] [id number] [place] Iron/TIBC [Molar ratio] 46.0 % Normal 15.0-57.0 [facility] Comment on above: Order Comment: Speci men Type: BLOOD SPECIMEN Ordering Facility: [facility] Address: [address] [place] [address] Performed By: #### 2 4331-1 #### [facility] CLIA [id number] [address] [place] [address] [place] [facility] CLIA [id number] [address] [place] [address] [place] #### 01195-8, 2276-4 #### [facility] CLIA [id number] [address] [place] [address] [place] Lipid 1996 panelon 5 Cholesterol [Mass/Vol] 141 mg/dL Normal <200 [facility] Comment on above: Order Comment: Speci men Type: BLOOD SPECIMEN Ordering Facility: [facility] Address: [address] [place] [address] Result Comment: <200 mg/dL, Desirable 200-239 mg/dL, Borderline high >239 mg/dL, High Performed By: #### 2 4331-1 #### [facility] CLIA [id number] [address] [place] [address] [place] [facility] CLIA [id number] [address] [place] [address] [place] #### 38791-8, 6-4 #### [facility] CLIA [id number] [address] [place] [address] [place] Cholesterol in HDL [Mass/Vol] 65 mg/dL Normal >39 [facility] Comment on above: Order Comment: Speci men Type: BLOOD SPECIMEN Ordering Facility: [facility] Address: [address] [place], [place] [id number] Result Comment: 40-5 9 mg/dL, Acceptable >59 mg/dL, High: Negative risk factor for coronary heart disease <40 mg/dL, Low: Positive risk factor for coronary heart disease Performed By: #### 2 4331-1 #### [facility] CLIA [id number] [address] [place] [address] [place] [facility] CLIA [id number] [address] [place] [address] [place] #### 49725-0, 6-4 #### [facility] CLIA [id number] [address] [place] [address] [place] Cholesterol in LDL [Mass/Vol] 47 mg/dL Normal <100 [facility] Comment on above: Order Comment: Speci men Type: BLOOD SPECIMEN Ordering Facility: [facility] Address: [address] [place] [address] Result Comment: <100 mg/dL, Optimal 100-129 mg/dL, Near optimal/above optimal 130-159 mg/dL, Borderline high 160-189 mg/dL, High >189 mg/dL, Very high Secondary prevention optimal LDL Cholesterol levels are recommended to be <70 mg/dL LDL cholesterol is calculated using the Dukes-NIH equation. Performed By: #### 2 4331-1 #### [facility] CLIA [id number] [address] [place] [address] [place] [facility] CLIA [id number] [address] [place] [address] [place] #### 56867-2, 2275- #### [facility] CLIA [id number] [address] [place] [address] STATES OF [facility] Cholesterol in LDL/Cholesterol in HDL [Mass ratio] 0.72 {ratio} Normal <2.54 [facility] Comment on above: Order Comment: Speci men Type: BLOOD SPECIMEN Ordering Facility: [facility] Address: [address] [place] [address] Result Comment: Cirilo malhotra: 1. National Cholesterol Education Program ATP III Guideline At-A-Glance Quick Desk Reference: National Heart, Lung, and Blood [place]. National Institutes of Health. 2001: NIH Publication No. 01-3305. 2. An International Atherosclerosis Society position paper: global recommendations for the management of dyslipidemia: executive summary, Atherosclerosis. 2014: 232(2):410-413. Performed By: #### 2 4331-1 #### [facility] CLIA [id number] [address] [place] [address] [place] [facility] CLIA [id number] [place] [address] [place] #### 28640-5, 2275- #### [facility] CLIA [id number] [address] [place] [address] [place] Cholesterol in VLDL [Mass/Vol] 25 mg/dL Normal <30 [facility] Comment on above: Order Comment: Speci men Type: BLOOD SPECIMEN Ordering Facility: [facility] Address: [address] [place] [address] Performed By: #### 2 4331-1 #### [facility] CLIA [id number] [facility] [address] [place] [facility] CLIA [id number] [place] [address] [place] #### 45636-4, 2275- #### [facility] CLIA [id number] [address] [place] [address] [place] Cholesterol non HDL [Mass/Vol] 76 mg/dL Normal <130 [facility] Comment on above: Order Comment: Speci men Type: BLOOD SPECIMEN Ordering Facility: [facility] Address: [address] [place] [address] Result Comment: <130 mg/dL, Optimal 130-159 mg/dL, Near optimal/above optimal 160-189 mg/dL, Borderline high 190-219 mg/dL, High >219 mg/dL, Very high Secondary prevention optimal non HDL Cholesterol levels are recommended to be <100 mg/dL Performed By: #### 2 4331-1 #### [facility] CLIA [id number] [address] [place] [id number] [place] [facility] CLIA [id number] [address] [place] [address] [place] #### 36937-7, 2275-4 #### [facility] CLIA [id number] [address] [place] [address] [place] Cholesterol.total/Cho lesterol in HDL [Mass ratio] 2.17 {ratio} Normal <5.10 [facility] Comment on above: Order Comment: Speci men Type: BLOOD SPECIMEN Ordering Facility: [facility] Address: [address] [place] [address] Performed By: #### 2 4331-1 #### [facility] CLIA [id number] [address] [place] [address] [place] [id number] [place] [address] [place] #### 16644-3, 2275-12 #### [facility] CLIA [id number] [address] [place], [place] [id number] [place] FASTING TIME 12 hrs Normal [facility] Comment on above: Order Comment: Speci men Type: BLOOD SPECIMEN Ordering Facility: [facility] Address: [address] [place] [address] Performed By: #### 2 4331-1 #### [facility] CLIA [id number] [address] [place], [place] [id number] [place] [facility] CLIA [id number] [address] [place] [address] [place] #### 46752-5, 2276-4 #### [facility] CLIA [id number] [address] [place] [address] [place] Triglyceride [Mass/Vol] 180 mg/dL High <150 [facility] Comment on above: Order Comment: Speci men Type: BLOOD SPECIMEN Ordering Facility: [facility] Address: [address] [place] [address] Result Comment: <150 mg/dL, Normal 150-199 mg/dL, Borderline high 200-499 mg/dL, High >499 mg/dL, Very high Performed By: #### 2 4331-1 #### [facility] CLIA [id number] [address] [place] [address] [place] [facility] CLIA [id number] [address] [place] [address] [place] #### 33943-1, 6-4 #### [facility] CLIA [id number] [address] [place] [address] [place] Zinc SerPl-mCncon 05-08-2025 Zinc [Mass/Vol] 74 ug/dL Normal 60-120 [facility] Comment on above: Order Comment: Speci men Type: BLOOD SPECIMEN Ordering Facility: [facility] Address: [address] [place] [address] Result Comment: This test was developed, and its performance characteristics determined by the [facility] Department of Pathology and Laboratory Medicine. It has not been cleared or approved by the FDA. The [facility] Department of Pathology and Laboratory Medicine is regulated under CLIA as qualified to perform high-complexity testing. This test is used for clinical purposes. It should not be regarded as investigational or for research. Performed By: #### 5 763-8, COPPER #### [facility] CLIA [id number] [address] [place] [address] [place] [facility] CNPN Telephone (HEMAWS) AMALIA CORRAL ([id number]) 1950 F Date Time Provider Department 04/29/25 LISA CLEMENTE During your visit today, we recorded the following information about you: Taylor Joseph 04/29/2025 10:53 AM Signed Patient's daughgter Aric called and stated that Galina was seen at [facility] ER and was referred to see hematology. Please review chart and advise on scheduling, we will call daughter Aric back to schedule at [phone] DX:Iron Deficiency Anemia Referring: Lisa Cadena 05/01/2025 2:17 PM Signed Ok to schedule with me. New Anemia Lisa Clemente APRN.Vanessa Gibbons 05/01/2025 2:30 PM Signed Spoke with daughter and scheduled next available 05/08 Vanessa Mccauley Allergies As of Date: 04/29/2025 Noted Allergy Reaction MARCO INHIBITORS 04/05/2009 3 - Cough LOSARTAN POTASSIUM 11/24/2014 2 - Rash Comments: At higher doses (ok at low dose) Date Reviewed: 04/26/2025 Reviewed by: Usha Goodwin, RN - Fully Assessed Reason for Visit: New Patient [172] Prescriptions as of 05/01/2025 - sulfamethoxazole-trimethopr im (BACTRIM DS) 800-160 mg per tablet Take 1 tablet by mouth two times a day for 7 days. - furosemide (LASIX) 20 mg tablet Take 1 tablet by mouth once daily. - Psyllium Seed-Sucrose (METAMUCIL, SUGAR,) Take 1 Tablespoonful by mouth once daily. Take as directed. - ferrous sulfate (IRON) 325 mg (65 mg iron) tablet Take 1 tablet by mouth every other day. - pantoprazole DR (PROTONIX) 40 mg tablet Take 1 tablet by mouth once daily. - traZODone (DESYREL) 50 mg tablet Take 50 mg by mouth daily at bedtime. - FARXIGA 10 mg tablet Take 1 tablet by mouth once daily. - losartan (COZAAR) 25 mg tablet Take 25 mg by mouth once daily. - metoprolol tartrate, short acting, (LOPRESSOR) 50 mg tablet Take 50 mg by mouth two times a day. - acetylcysteine (NAC) 600 mg capsule Take 600 mg by mouth two times a day. - cholecalciferol (VITAMIN D3) 5,000 unit tab Take 5,000 Units by mouth once daily. - BASAGLAR KWIKPEN U-100 INSULIN 100 unit/mL (3 mL) INJECT 6 UNITS SUBCUTANEOUSLY TWICE DAILY - donepezil (ARICEPT) 10 mg tablet Take 10 mg by mouth daily at bedtime. - sertraline (ZOLOFT) 50 mg tablet Take 75 mg by mouth once daily. - risperiDONE (RISPERDAL) 1 mg tablet Take 1 mg by mouth as needed. - pravastatin (PRAVACHOL) 20 mg tablet Take 20 mg by mouth once daily. - metFORMIN (GLUCOPHAGE) 500 mg tablet Take 1,000 mg by mouth twice daily with meals. - nitroglycerin sublingual (NITROQUICK) 0.4 mg SL tablet Dissolve 1 tablet under the tongue every 5 minutes as needed for chest pain. - cyanocobalamin (VITAMIN B-12) 1,000 mcg tab Take 1,000 mcg by mouth once daily. - Levothyroxine 25 mcg cap Take 25 mcg by mouth once daily. - apixaban (ELIQUIS) 5 mg tab tab(s) Take 1 tablet by mouth twice daily. Meds Comments as of 11/24/2014: Fish oil 1200 mg a day Problem List As Of Date 04/29/2025 Noted Resolved Osteopenia [M89.9, M94.9] 07/20/2006 HYPERPARATHYROIDISM NOS [E21.3] 01/01/2007 INGROWING NAIL [L60.0] 08/23/2007 10/15/2008 DERMATITIS NOS [L25.9] 10/11/2007 10/15/2008 CELLULITIS, TOE NOS [L03.039, L02.619] 11/06/2007 10/15/2008 Lumbago [M54.50] 09/28/2008 04/18/2025 Essential hypertension [I10] 09/28/2008 VITAMIN D DEFICIENCY NOS [E55.9] 10/15/2008 Type 2 diabetes mellitus, with long-term curren*12/21/2014 Persistent atrial fibrillation (HCC) [I48.19] 03/27/2016 01/04/2024 Fatigue [R53.83] 03/27/2016 04/18/2025 Pulmonary HTN (HCC) [I27.20] 03/14/2017 Chest pain [R07.9] 05/29/2023 01/04/2024 Elevated troponin [R79.89] 05/29/2023 04/18/2025 Coronary artery disease involving andreafski morgan*05/29/2023 At risk for delirium [Z91.89] 05/29/2023 Unstable angina (HCC) [I20.0] 05/29/2023 01/04/2024 Permanent atrial fibrillation (HCC) [I48.21] 05/29/2023 04/18/2025 Malnutrition of moderate degree (HCC) [E44.0] 05/30/2023 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] 05/30/2023 Hyperlipidemia [E78.5] 06/01/2023 Chronic atrial fibrillation (HCC) [I48.20] 06/01/2023 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] 06/01/2023 Primary hypertension [I10] 06/01/2023 04/18/2025 Stable angina [I20.89] 11/09/2023 On continuous oral anticoagulation [Z79.01] 11/19/2023 04/19/2025 At risk for stroke [Z91.89] 11/19/2023 04/18/2025 S/P placement of leadless cardiac pacemaker [Z9*11/19/2023 04/19/2025 H/O atrioventricular yessica ablation [Z98.890] 11/19/2023 Complete heart block (HCC) [I44.2] 11/20/2023 Dementia (HCC) [F03.90] 04/18/2025 Community acquired pneumonia of right lower lob*04/18/2025 04/19/2025 Altered mental status [R41.82] 04/18/2025 04/19/2025 Anemia [D64.9] 04/18/2025 Stage 3a chronic kidney disease (HCC) [N18.31] 04/18/2025 Acute combined systolic and diastolic congestiv*04/18/2025 04/19/2025 Elev (more content not included)... Normal [facility] ED NOTEon 04-26-2025 ED NOTE HNO ID: [id number] Author: USHA GOODWIN RN Service: ? Author Type: Registered Nurse Type: ED Notes Filed: 04/26/2025 12:17 Note Text: Patient informed: the name of medication, why we are giving it, possible side effects, what they may expect to feel, and was offered a chance to ask questions, prior to the administration of Bactrim Normal [facility] ED NOTE HNO ID: [id number] Author: USHA GOODWIN RN Service: ? Author Type: Registered Nurse Type: ED Notes Filed: 04/26/2025 10:45 Note Text: Pt arrives with swelling and redness located at right forearm. Pt recently admitted to hospital after fall, spent 6 days in [facility]. Pt discharged on . Normal [facility] ED PROV NOTEon 04-26-2025 ED PROV NOTE HNO ID: [id number] Author: SELENA EUBANKS MD Service: Emergency Medicine Author Type: Physician Type: ED Provider Notes Filed: 04/26/2025 12:11 Note Text: ED Provider Note Patient Name: Amalia Corral : 1950 SERVICE DATE: 04/26/25 History Patient presents with: Edema Patient presents to the ER with her daughter, for concerns of a right forearm pain and swelling. Patient was discharged from the hospital on 724, for pneumonia, congestive heart failure, urinary tract infection. Patient was on cefdinir, last dose was 2 days prior. Since the time of hospital discharge, patient had increased pain, swelling, redness, specifically around the right forearm IV site. Patient is overloaded no fevers. Daughter is a nurse and they have been doing compresses without any improvement Edema Severity: Mild Onset quality: Gradual Duration: 2 days Timing: Intermittent Progression: Worsening Chronicity: New Associated symptoms: rash Associated symptoms: no fever, no nausea and no vomiting PAST MEDICAL HISTORY Diagnosis Date Acute rheumatic heart disease, unspecified Aortic valve insufficiency Atrial fibrillation (HCC) Diabetes mellitus type 2 in obese 03/2012 Heart disease, rheumatic History of PTCA 06/01/2023 LAD AND RCA Hyperlipemia Hypertension Hypothyroid Mitral valve regurgitation Osteopenia Pulmonary hypertension (HCC) Unspecified vitamin D deficiency 10/15/2008 Vit D level 10/09: 15.7, started weekly Vitamin D. PAST SURGICAL HISTORY Procedure Laterality Date AV YESSICA ABLATION 11/19/2023 With Micra implant; Dr. Strong at [facility] CARDIOVERSION x2 CHOLECYSTECTOMY 10/01/1982 Cholecystectomy MICRA AV LEADLESS PACEMAKER 11/19/2023 With AVN catheter ablation; Dr. Strong at [facility] PERCUTANEOUS CORONARY INTERVENTION 06/01/2023 LAD AND RCA TOTAL ABDOMINAL HYSTERECT W/WO RMVL TUBE OVARY 10/01/1975 Hysterectomy, ALY FAMILY HISTORY Problem Relation Age of Onset None Father unknown health Stroke Mother POLYCYSTIC KIDNEY DISEASE,HEART DISEASE ,HYPERTENSION Hypertension Mother Heart Mother ? None Maternal Grandfather black lung other (polycystic kidney disease) Brother Breast Cancer Maternal Aunt Cancer Maternal Aunt leukemia Heart Brother AF None Sister Ischemic Heart Disease Brother [place] 66 Social History Tobacco Use Smoking status: Former Current packs/day: 0.00 Average packs/day: 1.5 packs/day for 15.0 years (22.5 ttl pk-yrs) Types: Cigarettes Start date: 10/01/1974 Quit date: 10/01/1989 Years since quittin.5 Smokeless tobacco: Never Substance and Sexual Activity Alcohol use: Yes Comment: rarely Drug use: No Sexual activity: Not on file ALLERGIES Allergen Reactions Marco Inhibitors Cough Losartan Potassium Rash At higher doses (ok at low dose) Review of Systems Constitutional: Negative for fever. Gastrointestinal: Negative for nausea and vomiting. Skin: Positive for color change and rash. All other systems reviewed and are negative. Physical Exam Vitals [04/26/25 1040] BP Pulse Temp Temp src Resp SpO2 Weight Height 120/87 77 37 ?C (98.6 ?F) Temporal 16 100 % 64.4 kg (142 lb) 1.676 m (5' 6") Physical Exam Vitals and nursing note reviewed. Constitutional: General: She is not in acute distress. Appearance: Normal appearance. She is not ill-appearing or toxic-appearing. HENT: Head: Normocephalic and atraumatic. Eyes: General: Right eye: No discharge. Left eye: No discharge. Pulmonary: Effort: No respiratory distress. Skin: General: Skin is warm and dry. Findings: Bruising, erythema and rash present. Comments: Mid right forearm, along the radial aspect, patient has a 7 x 12 cm area of erythema, with some induration, it is mildly with increased temperature crying the surrounding tissue, has well-demarcated erythematous borders, there is a small scab in the center, there is no fluctuance, there is no satellite lesions, there is no proximal palpable cords, there is no surrounding, approximately standing lymphangitis, he does not cross the elbow crease, and is not circumferential, patient's got good range of motion of her forearm hand with a strong radial pulse Neurological: General: No focal deficit present. Mental Status: She is alert and oriented to person, place, and time. Mental status is at baseline. Psychiatric: Mood and Affect: Mood normal. Behavior: Behavior normal. Diagnostic Testing ED Labs Ordered and Reviewed - No data to display Procedures ED Course / Clinical Impression Clinical Impressions as of 04/26/25 1204 Intravenous infiltration, initial encounter Right forearm cellulitis MDM / Disposition / Plan 74-year-old female presents the ER with her daughter, for concerns over pain and swelling of her right forearm. Patient was discharged in the hospital on 724, for pneumonia, UTI, congestive heart fail (more content not included)... Normal [facility] ANES POSTPROC EVALon 025 ANES POSTPROC EVAL HNO ID: [id number] Author: ASAEL WRIGHT MD Service: ? Author Type: Anesthesiologist Type: Anesthesia Postprocedure Evaluation Filed: 04/23/2025 10:55 Note Text: POST ANESTHESIA EVALUATION NOTE : 1950 Procedure Summary Date: 04/23/25 Room / Location: [facility] Endoscopy Anesthesia Start: 928 Anesthesia Stop: 1013 Procedure: COLONOSCOPY DIAGNOSTIC Diagnosis: Scheduled Providers: Cassi Love MD; Asael Wright MD; Sanam Patel APRN.EDGE STRIPPER Responsible Provider: Asael Wright MD Anesthesia Type: MAC ASA Status: 4 Anesthesia Type: MAC Last Vitals Vitals Value Taken Time BP 123/60 04/23/25 1030 Temp 36.3 ?C (97.3 ?F) 04/23/25 1012 Pulse 77 04/23/25 1037 Resp 47 04/23/25 1037 SpO2 99 % 04/23/25 1037 Vitals shown include unfiled device data. Post Anesthesia Patient Status Patient Evaluation: bedside. Anticipated Disposition: inpatient floor planned admission. Neurological Status: sleepy but arousable. Pulmonary Status: breathing comfortably on supplemental oxygen Airway Control: returned to baseline unsupported. Cardiovascular Status: stable. Pain Management: clinically adequate Postoperative Hydration: acceptable. Intraoperative Events: no significant anesthesia events Post Operative Nausea/Vomiting Status: no significant post operative nausea or vomiting Recommendation: continue current plan of care and pain control. Anesthesia Observations No Documentation SIGNATURE: Asael Wright MD PATIENT NAME: Amalia Corral DATE: April 23, 2025 TIME: 10:55 AM CSN: [id number] Normal [facility] ANES PRE-OPon 04-23-2025 ANES PRE-OP HNO ID: [id number] Author: ASAEL WRIGHT MD Service: ? Author Type: Anesthesiologist Type: Anesthesia Preprocedure Evaluation Filed: 04/23/2025 09:08 Note Text: ANESTHESIOLOGY DAY OF SURGERY NOTE : 1950 Procedure Information Date/Time: 04/23/25 0945 Scheduled providers: Cassi Love MD; Asael Wright MD; Sanam Patel APRN.EDGE STRIPPER Procedure: COLONOSCOPY DIAGNOSTIC Location: [facility] Endoscopy Estimated body mass index is 22.35 kg/m? as calculated from the following: Height as of this encounter: 167.6 cm (5' 6"). Weight as of this encounter: 62.8 kg (138 lb 7.2 oz). Most recent hematocrit and potassium results: Hematocrit 31.5 04/23/2025 Potassium 3.8 04/21/2025 Relevant Problems CARDIO (+) Chronic atrial fibrillation (HCC) (+) Complete heart block (HCC) (+) Coronary artery disease 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 (+) Essential hypertension (+) Pulmonary HTN (HCC) (+) Rheumatic aortic valve insufficiency (+) Stable angina ENDO (+) Type 2 diabetes mellitus, with long-term current use of insulin (HCC) -RENAL (+) Stage 3a chronic kidney disease (HCC) I - PHYSICAL EVALUATION AIRWAY Patient intubated: No. Tracheostomy tube not present Mallampati: II. TM distance: >3 FB. Neck ROM: full ROM without neurological symptoms. Mouth opening: adequate. Short neck: no. Thick neck: no DENTAL Dental findings: teeth intact. II - ANESTHESIA PLAN ASA Score: 4 Anesthetic Plan: MAC The patient is not a current smoker. NPO Status: adequate Beta Rajinder Monitoring Plan Monitoring plan: standard ASA. Post Procedure Analgesic Plan Postoperative analgesic plan: multimodal analgesia. Informed Consent Anesthetic risks, benefits, alternatives, personnel and consent discussed: yes. Patient / Responsible Democrat agrees to proceed: yes Patient / Surrogate agrees to blood products: Yes DNR status not reviewed with patient and/or family prior to surgery. Significant changes in the patient condition since the History and Physical, not otherwise documented in primary service progress note: no. Potential Anesthesia issues that may suggest increased risk of complications or contraindication to planned procedure: none. Vitals Value Taken Time BP 136/66 04/23/25 08 Pulse 73 04/23/25 0824 Resp 16 04/23/25 0824 Temp 36.7 ?C (98.1 ?F) 04/23/25 08 SpO2 97 % 04/23/25 0824 Facility-Administered Medications as of 04/23/2025 Medication Dose Route Frequency [COMPLETED] bisacodyl EC 10 mg tab(s) (DULCOLAX) 10 mg ORAL q 2 H [] polyethylene glycol 3350 34 g oral powder 34 g ORAL q 1 H [Transfer Hold] acetaminophen 650 mg tab(s) (TYLENOL) 650 mg ORAL q 6 H PRN [Transfer Hold] pantoprazole DR 40 mg tab(s) (PROTONIX) 40 mg ORAL BID AC (0600/1600) [Order Held by [facility]] dapagliflozin propanediol 10 mg tab(s) (FARXIGA) 10 mg ORAL DAILY [COMPLETED] peg 3350-Electrolytes 4,000 mL oral liquid (GOLYTELY) 4,000 mL ORAL ONCE [COMPLETED] bisacodyl EC 10 mg tab(s) (DULCOLAX) 10 mg ORAL q 1 H [COMPLETED] ferric gluconate 250 mg in NaCl 0.9% 100 mL (FERRLECIT) 250 mg INTRAVENOUS ONCE AT 6PM [COMPLETED] enoxaparin 60 mg injection (LOVENOX) 60 mg SUBCUTANEOUS ONCE [Transfer Hold] cyanocobalamin 1,000 mcg tab(s) (VITAMIN B-12) 1,000 mcg ORAL DAILY [Order Held by [facility]] furosemide 20 mg tab(s) (LASIX) 20 mg ORAL DAILY [COMPLETED] acetaminophen 650 mg tab(s) (TYLENOL) 650 mg ORAL ONCE [COMPLETED] furosemide 20 mg injection (LASIX) 20 mg INTRAVENOUS ONCE [COMPLETED] cefTRIAXone iv piggyback 1 g in dextrose (iso-osmotic) 50 mL (ROCEPHIN) 1 g INTRAVENOUS ONCE [COMPLETED] azithromycin 500 mg tab(s) (ZITHROMAX) 500 mg ORAL ONCE [Transfer Hold] dextrose 40 % 15 g 15 g ORAL PRN Or [Transfer Hold] glucagon 1 mg injection 1 mg INTRAMUSCULAR PRN Or [Transfer Hold] dextrose 10% iv bolus 12.5 g INTRAVENOUS PRN [Transfer Hold] NaCl 0.9% iv flush bag 20 mL INTRAVENOUS PRN [Transfer Hold] aluminum-magnesium hydroxide-simethicone 200-200-20 mg/5 mL 30 mL 30 mL ORAL q 6 H PRN [Transfer Hold] cefTRIAXone iv piggyback 1 g in dextrose (iso-osmotic) 50 mL (ROCEPHIN) 1 g INTRAVENOUS q 24 H [Transfer Hold] insulin lispro injection (rapid acting) (ADMElog) SUBCUTANEOUS w MEALS [Order Held by [facility]] losartan 25 mg tab(s) (COZAAR) 25 mg ORAL DAILY [Transfer Hold] metoprolol tartrate (short acting) 50 mg tab(s) (LOPRESSOR) 50 mg ORAL BID [Transfer Hold] pravastatin 20 mg tab(s) (PRAVACHOL) 20 mg ORAL AT BEDTIME [Order Held by [facility]] insulin glargine 6 Units pen (long acting) 6 Units SUBCUTANEOUS BID [Transfer Hold] sertraline (ZOLOFT) tab(s) 75 mg 75 mg ORAL DAILY [Transfer Hold] traZODone 50 mg tab(s) (DESYREL) 50 mg ORAL AT BEDTIME [Transfer Hold] donepezil 10 mg tab(s) (ARICEPT) 10 mg ORAL AT BEDTIME [Transfer Hold] levothyroxine 25 mcg tab(s) (SYNTHROID) 25 mcg ORAL DAILY WITH BREAKFAST [Transfer Hold] acetylc (more content not included)... Normal [facility] BRIEF OP NOTon 04-23-2025 BRIEF OP NOT HNO ID: [id number] Author: CASSI LOVE MD Service: Gastroenterology Author Type: Physician Type: Brief Op Note Filed: 04/23/2025 10:08 Note Text: BRIEF OPERATIVE NOTE LOG ID: * No surgery found * SURGERY/PROCEDURE DATE: 04/23/2025 INCISION/PROCEDURE START TIME: 0934 INCISION CLOSE/PROCEDURE END TIME: 1004 SURGEON(S)/PROCEDURALIST(S) AND DEALER CARD ROOM(S): Cassi Love MD PROCEDURE(S): Colonoscopywith snare polypectomy ANESTHESIA: MAC FINDINGS: see dictated note ESTIMATED BLOOD LOSS: minimal SPECIMENS: Descending colon polyp COMPLICATIONS: None PRE-OP/PRE-PROCEDURE DIAGNOSIS: Iron deficiency anemia POST-OP/POST-PROCEDURE DIAGNOSIS: #1. 7 mm descending colon polyp #2. left-sided diverticula-most pronounced in sigmoid #3. small internal and external hemorrhoids SIGNATURE: Cassi Love MD PATIENT NAME: Amalia Corral DATE: April 23, 2025 TIME: 9:26 AM PAGER/CONTACT #: Normal [facility] Basic metabolic 2000 panelon 04-23-2025 Anion gap [Moles/Vol] 15 mmol/L Normal 8-15 [facility] Comment on above: Order Comment: Colten bustamante Type: BLOOD SPECIMEN Ordering Facility: [facility] Address: [address] [place] [address] Performed By: #### 2 4321-2, #### [facility] CLIA [id number] [address] [place] [address] [place] Calcium [Mass/Vol] 8.8 mg/dL Normal 8.5-10.2 [facility] Comment on above: Order Comment: Colten bustamante Type: BLOOD SPECIMEN Ordering Facility: [facility] Address: [address] [place] [address] Performed By: #### 2 4321-2, #### [facility] CLIA [id number] [address] [place] [address] [place] Chloride [Moles/Vol] 106 mmol/L Normal 98-107 [facility] Comment on above: Order Comment: Guyi men Type: BLOOD SPECIMEN Ordering Facility: [facility] Address: [address] [place] [address] Performed By: #### 2 432-2, #### [facility] CLIA [id number] [address] [place] [address] [place] CO2 [Moles/Vol] 21 mmol/L Low 22-30 [facility] Comment on above: Order Comment: Colten bustamante Type: BLOOD SPECIMEN Ordering Facility: [facility] Address: [address] [place] [address] Performed By: #### 2 2, #### [facility] CLIA [id number] [address] [place] [address] [place] Creatinine [Mass/Vol] 1.14 mg/dL High 0.58-0.96 [facility] Comment on above: Order Comment: Colten bustamante Type: BLOOD SPECIMEN Ordering Facility: [facility] Address: [address] [place] [address] Performed By: #### 2 2, #### [facility] CLIA [id number] [address] [place] [address] [place] eGFRcr SerPlBld CKD-EPI 2020 50 mL/min/1.73m??? Low >=60 [facility] Comment on above: Order Comment: Colten bustamante Type: BLOOD SPECIMEN Ordering Facility: [facility] Address: [address] [place] [address] Result Comment: Haylee mated Glomerular Filtration Rate (eGFR) is calculated using the 2020 CKD-EPI creatinine equation. This equation utilizes serum creatinine, sex, and age as parameters. The creatinine assay has traceable calibration to isotope dilution-mass spectrometry. Refer to KDIGO guidelines for clinical interpretation. In patients with unstable renal function, e.g. those with acute kidney injury, the eGFR may not accurately reflect actual GFR. Performed By: #### 2 432-2, #### [facility] CLIA [id number] [address] [place] [address] [place] Glucose [Mass/Vol] 95 mg/dL Normal 74-99 [facility] Comment on above: Order Comment: Colten bustamante Type: BLOOD SPECIMEN Ordering Facility: [facility] Address: [address] [id number] Result Comment: The [place] Diabetes Association (ADA) provides guidance for cutoff values for fasting glucose and random glucose. The ADA defines fasting as no caloric intake for at least 8 hours. Fasting plasma glucose results between 100 to 125 mg/dL indicate increased risk for diabetes (prediabetes). Fasting plasma glucose results greater than or equal to 126 mg/dL meet the criteria for diagnosis of diabetes. In the absence of unequivocal hyperglycemia, results should be confirmed by repeat testing. In a patient with classic symptoms of hyperglycemia or hyperglycemic crisis, random plasma glucose results greater than or equal to 200 mg/dL meet the criteria for diagnosis of diabetes. Reference: Standards of Medical Care in Diabetes 2016, [place] [employer] Association. Diabetes Care. 2016.39(Suppl 1). Performed By: #### 2 4320-, #### [facility] CLIA [id number] [address] [place] [address] [place] Potassium [Moles/Vol] 3.6 mmol/L Low 3.7-5.1 [facility] Comment on above: Order Comment: Speci men Type: BLOOD SPECIMEN Ordering Facility: [facility] Address: [address] [place] [address] Performed By: #### 2 4320-11, #### [facility] CLIA [id number] [address] [place] [address] [place] Sodium [Moles/Vol] 142 mmol/L Normal 136-144 [facility] Comment on above: Order Comment: Colten men Type: BLOOD SPECIMEN Ordering Facility: [facility] Address: [address] [id number] Performed By: #### 2 4320-11, #### [facility] CLIA [id number] [address] [place] [address] [place] Urea nitrogen [Mass/Vol] 10 mg/dL Normal 7-21 [facility] Comment on above: Order Comment: Colten men Type: BLOOD SPECIMEN Ordering Facility: [facility] Address: [address] [id number] Performed By: #### 2 4320-11, #### [facility] CLIA [id number] [address] CBC panel Auto (Bld)on 04-23 Erythrocyte distribution width (RBC) [Ratio] 21.5 % High 11.5-15.0 [facility] Comment on above: Order Comment: Speci men Type: BLOOD SPECIMEN Ordering Facility: [facility] Address: [address] [place] [address] Performed By: #### 5 8410-2 #### [facility] CLIA [id number] [address] Hematocrit (Bld) [Volume fraction] 31.5 % Low 36.0-46.0 [facility] Comment on above: Order Comment: Speci men Type: BLOOD SPECIMEN Ordering Facility: [facility] Address: [address] [place] [address] Performed By: #### 5 8410-2 #### [facility] CLIA [id number] [address] Hemoglobin (Bld) [Mass/Vol] 9.6 g/dL Low 11.5-15.5 [facility] Comment on above: Order Comment: Speci men Type: BLOOD SPECIMEN Ordering Facility: [facility] Address: [address] [place] [address] Performed By: #### 5 8410-2 #### [facility] CLIA [id number] [address] MCH (RBC) [Entitic mass] 24.9 pg Low 26.0-34.0 [facility] Comment on above: Order Comment: Speci men Type: BLOOD SPECIMEN Ordering Facility: [facility] Address: [address] [place] [address] Performed By: #### 5 8410-2 #### [facility] CLIA [id number] [address] MCHC (RBC) [Mass/Vol] 30.5 g/dL Normal 30.5-36.0 [facility] Comment on above: Order Comment: Speci men Type: BLOOD SPECIMEN Ordering Facility: [facility] Address: [address] [place] [address] Performed By: #### 5 8410-2 #### [facility] CLIA [id number] [address] MCV (RBC) [Entitic vol] 81.6 fL Normal 80.0-100.0 [facility] Comment on above: Order Comment: Speci men Type: BLOOD SPECIMEN Ordering Facility: [facility] Address: [address] [place] [address] Performed By: #### 5 8410-2 #### [facility] CLIA [id number] [address] [place] Nucleated RBC (Bld) [#/Vol] 10*3/uL Normal <0.01 [facility] Comment on above: Order Comment: Speci men Type: BLOOD SPECIMEN Ordering Facility: [facility] Address: [address] [place] [address] Performed By: #### 5 8410-2 #### [facility] CLIA [id number] [address] OF [facility] Platelet mean volume (Bld) [Entitic vol] 9.0 fL Normal 9.0-12.7 [facility] Comment on above: Order Comment: Speci men Type: BLOOD SPECIMEN Ordering Facility: [facility] Address: [address] [place] [address] Performed By: #### 5 8410-2 #### [facility] CLIA [id number] [address] Platelets (Bld) [#/Vol] 339 10*3/uL Normal 150-400 [facility] Comment on above: Order Comment: Speci men Type: BLOOD SPECIMEN Ordering Facility: [facility] Address: [address] [place] [address] Performed By: #### 5 8410-2 #### [facility] CLIA [id number] [address] [place] RBC (Bld) [#/Vol] 3.86 10*6/uL Low 3.90-5.20 [facility] Comment on above: Order Comment: Speci men Type: BLOOD SPECIMEN Ordering Facility: [facility] Address: [address] [place] [address] Performed By: #### 5 8410-2 #### [facility] CLIA [id number] [address] [place] [address] [facility] WBC (Bld) [#/Vol] 8.65 10*3/uL Normal 3.70-11.00 [facility] Comment on above: Order Comment: Speci men Type: BLOOD SPECIMEN Ordering Facility: [facility] Address: [address] [place] [address] Performed By: #### 5 8410-2 #### [facility] CLIA [id number] [address] [place] [address] [facility] CNDSon 04-23-2025 CNDS HNO ID: [id number] Author: SAL SANTIAGO MD Service: Hospital Medicine Author Type: Physician Type: Discharge Summary Filed: 04/23/2025 11:14 Note Text: DISCHARGE SUMMARY PATIENT NAME: Amalia Corral Code Status: DNR-CCA Highest Readmission Risk Score: 22 The 30 day readmissions risk score is derived from an internally validated risk model which evaluates patient level characteristics, utilization history, medication orders and lab results up until the day of discharge. Patients with a score of 39 or above are considered highest risk for readmission. Specific patient level drivers will be listed at the bottom of the summary. Admission Information Admission Information ADMIT DATE: 04/18/2025 DISCHARGE DATE: 04/23/25 MY DOCTORS AND MEDICAL TEAM: [facility] Doctor: Sal Santiago MD Primary Care Provider: Rajat Patel MD My Medical Team Members: Treatment Team: Attending Provider: Sal Santiago MD Primary Service: , [facility] Consulting: Cassi Love MD MY CONDITION AT DISCHARGE: Stable REASON I WAS IN THE HOSPITAL: Fall at SNF with tailbone fracture. The fracture is non-displaced and will heal over time. Use tylenol for pain relief. Avoid ibuprofen/motrin/naproxen. You had a pneumonia and bladder infection. Complete the pill antibiotic course. You have iron deficiency anemia. Take iron every other day to improve blood counts. Discontinue aspirin. You had an endoscopy to look at the stomach. You have stomach inflammation and a narrowed esophagus that was dilated to avoid future trouble swallowing food. Take pantoprazole to heal stomach inflammation and avoid anemia. Follow up with Hematology to track blood counts and Gastroenterology to monitor your intestine health. Referral to Hematology and Gastroenterology placed. Sunday-Sunday after 9 am, call mimeograph operator at [phone] ext-[phone] and ask for the appointment line to schedule an appointment. You had a colonoscopy showing a colon polyp (removed during the procedure), hemorrhoids, and diverticulosis. Take metamucil to reduce bleed risk from hemorrhoids and diverticulosis. SUMMARY OF WHAT HAPPENED WHILE I WAS IN THE HOSPITAL: see above OTHER PROBLEMS/DIAGNOSIS: Principal Problem (Resolved): Community acquired pneumonia of right lower lobe of lung Active Problems: Coronary artery disease 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 Type 2 diabetes mellitus, with long-term current use of insulin (HCC) Chronic atrial fibrillation (HCC) Complete heart block (HCC) Dementia (HCC) Anemia Stage 3a chronic kidney disease (HCC) Coccygeal fracture (HCC) Chronic systolic CHF (congestive heart failure) (HCC) Resolved Problems: Permanent atrial fibrillation (HCC) Primary hypertension On continuous oral anticoagulation S/P placement of leadless cardiac pacemaker Altered mental status Acute combined systolic and diastolic congestive heart failure (HCC) Elevated brain natriuretic peptide (BNP) level Abnormal CT scan, lumbar spine Aspiration pneumonia (HCC) OPERATIONS PERFORMED WHILE IN THE HOSPITAL: None IMPORTANT TEST/PROCEDURES: No procedures performed TEST RESULTS NOT AVAILABLE AT THIS TIME: No pending results Discharge Disposition Discharge Disposition: Home With Self Care Follow Up Appointments Follow-Up Appointment With: Patient's Primary Care Provider When: In: Patient/Parents to call for appointment?: Yes First available, usual location Additional Provider to Provider Information: Ms. Corral, your 74 years have been affected by Dm2 afib CKD3 HTN CAD with prior stents (2023 most recent), CHB s/p pacemaker, S-CHF, HPL dementia. You presented to the hospital with multiple issues after returning home from a SNF. Patient was at a SNF recently while daughter was on vacation. 1. Had fall at SNF. 2. Had episodes of N/V at SNF. 3. Had episode of Shortness of Breath while at store with daughter after returning home prompting ED eval. Cystitis and aspiration PNA - resolved with abx -fell at SNF. Has evidence of non-displaced coccygeal fracture. Family declined PT OT. Patient ambulating. Iron def anemia improved with iron. Rx iron, ppi, dc aspirin. Had EGD with gastritis/schatzki ring s/p dilation. F/u with hemonc and GI for anemia and colonoscopy respectively. Had colonoscopy during stay as well. Polyp removed. Diverticulosis and hemorrhoids seen. DC on metamucil.s Transitions of Care Critical Issues: SPECIALIST FOLLOW-UP: GI and hematology [facility] MEDICATION CHANGES: see med list LABS AND PROCEDURES PENDING AT DISCHARGE: No pending results. FOLLOW-UP APPOINTMENTS ALREADY SCHEDULED WITH A [facility] PROVIDER: Future Appointments Date Time Provider Department Center 11/18/2025 11:40 AM Chloe Strong MD [facility] ALLERGIES Allergen Reactions Marco Inhibitors Cough Losartan Po (more content not included)... Normal [facility] HISTORY PHYSICALon HISTORY PHYSICAL HNO ID: [id number] Author: CASSI LOVE MD Service: Gastroenterology Author Type: Physician Type: H&P Filed: 04/23/2025 09:25 Note Text: UPDATED HISTORY AND PHYSICAL EXAMINATION PATIENT NAME: Amalia Corral DATE of SERVICE: 04/23/2025 TIME of SERVICE: 9:25 AM PHYSICAL EXAM MUST BE COMPLETED ON ADMISSION The History and Physical (completed in the past 30 days) has been reviewed and the patient has been examined. The contents accurately reflect the patient's condition with the following additions or revisions since the HANDP was completed. Examination indicates no changes SIGNATURE: Cassi Love MD DATE: April 23, 2025 TIME: 9:25 AM [facility] OPERATIVE NOon 04-23-2025 OPERATIVE NO HNO ID: [id number] Author: CASSI LOVE MD Service: Gastroenterology Author Type: Physician Type: Operative Report Filed: 04/23/2025 15:58 Note Text: [facility] - Operative Report AMALIA CORRAL : 1950 AGE: 74. SEX: F PATIENT TYPE: I HOSP SVC: Medical LOCATION: [facility] ATTENDING PHYSICIAN: SLA SANTIAGO CSN NUMBER: [id number] DATE OF SURGERY/PROCEDURE: 04/23/2025 INCISION/PROCEDURE START TIME: The scope in time was 09:34. INCISION CLOSE/PROCEDURE END TIME: The scope out time was 10:04. PREOPERATIVE DIAGNOSIS: Iron-deficiency anemia. POSTOPERATIVE DIAGNOSIS: 1. Descending colon polyp. 2. Diverticular disease of left colon. 3. Small internal and external hemorrhoids. SURGEON: Cassi Love M.D. DEALER CARD ROOM: Esme Goldman. SURGERY/PROCEDURE: Colonoscopy with snare polypectomy. ANESTHESIA: MAC. INDICATIONS: The patient is a 74-year-old female, who presents with iron- deficiency anemia. A colonoscopy undertaken to rule out a colonic etiology. CONSENT: The procedure was explained to the patient and her daughter. Informed consent was obtained from the patient's daughter prior to the procedure. She has durable power of waist cutter. DESCRIPTION OF PROCEDURE: The procedure was performed using monitored anesthesia care. She was positioned in the left lateral position. The Olympus PCF-H190L video colonoscope was advanced to the cecum under direct vision without difficulty. The position was confirmed by transillumination and by identification of cecal landmarks. The bowel preparation was adequate and visualization optimal. A 7 mm sessile polyp was seen in the descending colon. This was transected using a snare cautery and was recovered via the suction channel for histological assessment. Multiple diverticula were seen in the left colon. These were most pronounced in the sigmoid. The colonic mucosa was otherwise unremarkable. There was no evidence of colitis, and no additional polyps or tumors were seen. Angiodysplasias were not present. Small internal and external hemorrhoids were seen. After inspection of the colon, the endoscope was gently retrieved. The patient tolerated the procedure well and was returned to the recovery area in good condition. IMPRESSION: 1. Descending colon polyp. 2. Diverticular disease of left colon-most pronounced in sigmoid. 3. Small internal and external hemorrhoids. RECOMMENDATIONS: 1. Await histology. 2. Continue Protonix 40 mg p.o. twice daily. 3. May discharge home with close outpatient followup. Cassi Love M.D. JACQUE:[id number] [facility] Pathology biopsy report Art (Tiss)on 04-23-2025 AP DISCLAIMER [facility] Comment on above: Order Comment: Speci men Type: BLOOD SPECIMEN Ordering Facility: [facility] Address: [address] [place] [address] Result Comment: Brandon Genao Test (LDT) Disclaimer: Performance characteristics of immunohistochemical, immunofluorescent, and chromogenic in-situ hybridization tests have been determined by the performing laboratory within [facility] Pathology and Laboratory Medicine Department ([facility], [facility], [facility], [facility], [facility], [facility], or [facility]) in a manner consistent with CLIA requirements. One or more of these tests may not have been cleared or approved by the FDA. [facility] is regulated under CLIA as qualified to perform high-complexity testing. These tests are used for clinical purposes. These should not be regarded as investigational or for research. Positive and negative controls stain appropriately. Performed By: #### 5 8410-2 #### [facility] CLIA [id number] [address] CASE REPORT Normal [facility] Comment on above: Order Comment: Speci men Type: BLOOD SPECIMEN Ordering Facility: [facility] Address: [address] [place] [address] Result Comment: [facility] Pathology Report Case: [id number] Authorizing Provider: Cassi Love MD Collected: 04/23/2025 10:01 AM Ordering Location: [facility] Endoscopy Received: 04/23/2025 11:48 AM Pathologist: Marine Staton MD Specimen: Colon, Descending, Polyp Performed By: #### 5 8410-2 #### [facility] CLIA [id number] [address] [place] CLINICAL HISTORY AP Normal [facility] Comment on above: Order Comment: Speckorey bustamante Type: BLOOD SPECIMEN Ordering Facility: [facility] Address: [address] [place] [address] Performed By: #### 5 8410-2 #### [facility] CLIA [id number] [address] [place] FINAL DIAGNOSIS [facility] Comment on above: Order Comment: Speci men Type: BLOOD SPECIMEN Ordering Facility: [facility] Address: [address] [place] [address] Result Comment: Juan M. Jung shanks, descending, polyp, biopsy - Tubular adenoma at 1537 EDT Performed By: #### 5 8410-2 #### [facility] CLIA [id number] [address] FINAL PERFORMING LAB Normal [facility] Comment on above: Order Comment: Speci men Type: BLOOD SPECIMEN Ordering Facility: [facility] Address: [address] [place] [address] Result Comment: Diag nostic interpretation performed at: [facility], [address] [place] [address], [place] [address] CLIA# [id number] Manufacturing Engineering Technologist: Nico Carson MD Performed By: #### 5 8410-2 #### [facility] CLIA [id number] [address] GROSS DESCRIPTION Normal [facility] Comment on above: Order Comment: Speci men Type: BLOOD SPECIMEN Ordering Facility: [facility] Address: [address] [place] [address] Result Comment: Juan M. Jung shanks, Rodney, Polyp Received in formalin is one piece of ennis-brown, soft tissue measuring 0.5 x 0.4 x 0.3 cm. Totally submitted in one cassette. DL April 23, 2025 8:21 PM Gross examination performed at [facility], [address] [place] [address] Performed By: #### 5 8410-2 #### [facility] CLIA [id number] [address] THERAPY NTon 04-23-2025 THERAPY NT HNO ID: [id number] Author: DORI BERGERON PTA Service: Physical Therapy Author Type: Sample Maker Type: Therapy (PT/OT/Speech/Resp) Filed: 04/23/2025 09:03 Note Text: Attestation signed by Elena Larsen PT at 04/23/2025 6:05 PM I reviewed and agree with the documentation corresponding to this therapy visit. SIGNATURE: Elena Larsen PT DATE: April 23, 2025 TIME: 6:05 PM Summary: PT Treat PHYSICAL THERAPY MISSED VISIT SERVICE DATE: 04/23/2025 SERVICE TIME: 902 ROOM: [facility] (02) Patient not seen due to Test / Procedure. Will re-attempt as pt is available SIGNATURE: Dori Bergeron PTA PATIENT NAME: Amalia Corral DATE: April 23, 2025 TIME: 9:03 AM [facility] 04-22-2025 [facility] HNO ID: [id number] Author: SAL SANTIAGO MD Service: Hospital Medicine Author Type: Physician Type: Discharge Summary Filed: 04/22/2025 12:35 Note Text: DISCHARGE SUMMARY PATIENT NAME: Amalia Corral Code Status: DNR-CCA Highest Readmission Risk Score: 22 The 30 day readmissions risk score is derived from an internally validated risk model which evaluates patient level characteristics, utilization history, medication orders and lab results up until the day of discharge. Patients with a score of 39 or above are considered highest risk for readmission. Specific patient level drivers will be listed at the bottom of the summary. Acute metabolic encephalopathy on dementia, on admission. Chronic combined CHF on admission, stable. Addendum: Inadequate prep. Colonoscopy rescheduled to tomorrow am.s Admission Information Admission Information ADMIT DATE: 04/18/2025 DISCHARGE DATE: 04/22/25 MY DOCTORS AND MEDICAL TEAM: My Main Hospital Doctor: Sal Santiago MD Primary Care Provider: Rajat Patel MD My Medical Team Members: Treatment Team: Attending Provider: Sal Santiago MD Primary Service: 3, [facility] Consulting: Cassi Love MD MY CONDITION AT DISCHARGE: Stable REASON I WAS IN THE HOSPITAL: REASON I WAS IN THE HOSPITAL: Fall at SNF with tailbone fracture. The fracture is non-displaced and will heal over time. Use tylenol for pain relief. Avoid ibuprofen/motrin/naproxen. You had a pneumonia and bladder infection. Complete the pill antibiotic course. You have iron deficiency anemia. Take iron every other day to improve blood counts. Discontinue aspirin. You had an endoscopy to look at the stomach. You have stomach inflammation and a narrowed esophagus that was dilated to avoid future trouble swallowing food. Take pantoprazole to heal stomach inflammation and avoid anemia. Follow up with Hematology to track blood counts and Gastroenterology to monitor your intestine health. Referral to Hematology and Gastroenterology placed. Sunday-Sunday after 9 am, call mimeograph operator at [phone] ext-[phone] and ask for the appointment line to schedule an appointment. You had a colonoscopy during your hospital stay to evaluate for any problems that could cause anemia. SUMMARY OF WHAT HAPPENED WHILE I WAS IN THE HOSPITAL: see above OTHER PROBLEMS/DIAGNOSIS: Principal Problem (Resolved): Community acquired pneumonia of right lower lobe of lung Active Problems: Coronary artery disease 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 Type 2 diabetes mellitus, with long-term current use of insulin (HCC) Chronic atrial fibrillation (HCC) Complete heart block (HCC) Dementia (HCC) Anemia Stage 3a chronic kidney disease (HCC) Coccygeal fracture (HCC) Chronic systolic CHF (congestive heart failure) (HCC) Resolved Problems: Permanent atrial fibrillation (HCC) Primary hypertension On continuous oral anticoagulation S/P placement of leadless cardiac pacemaker Altered mental status Acute combined systolic and diastolic congestive heart failure (HCC) Elevated brain natriuretic peptide (BNP) level Abnormal CT scan, lumbar spine Aspiration pneumonia (HCC) OPERATIONS PERFORMED WHILE IN THE HOSPITAL: None IMPORTANT TEST/PROCEDURES: No procedures performed TEST RESULTS NOT AVAILABLE AT THIS TIME: No pending results Discharge Disposition Discharge Disposition: Home With Self Care Follow Up Appointments Follow-Up Appointment With: Patient's Primary Care Provider When: In: Patient/Parents to call for appointment?: Yes First available, usual location Additional Provider to Provider Information: Ms. Corral, your 74 years have been affected by Dm2 afib CKD3 HTN CAD with prior stents (2023 most recent), CHB s/p pacemaker, S-CHF, HPL dementia. You presented to the hospital with multiple issues after returning home from a SNF. Patient was at a SNF recently while daughter was on vacation. 1. Had fall at SNF. 2. Had episodes of N/V at SNF. 3. Had episode of Shortness of Breath while at store with daughter after returning home prompting ED eval. Cystitis and aspiration PNA - resolved with abx -fell at SNF. Has evidence of non-displaced coccygeal fracture. Family declined PT OT. Patient ambulating. Iron def anemia improved with iron. Rx iron, ppi, dc aspirin. Had EGD with gastritis/schatzki ring s/p dilation. F/u with hemonc and GI for anemia and colonoscopy respectively. Had colonoscopy during stay as well. Transitions of Care Critical Issues: SPECIALIST FOLLOW-UP: GI and hematology CHAUDHARY MEDICATION CHANGES: see med list LABS AND PROCEDURES PENDING AT DISCHARGE: No pending results. FOLLOW-UP APPOINTMENTS ALREADY SCHEDULED WITH A [facility] PROVIDER: Future Appointments Date Time Provider Department Center 04/22/2025 11:15 AM Cassi Love MD [facility] 11/18/2025 11:40 AM Se Ligia (more content not included)... Normal [facility] CONSULT PROGon 04-22-2025 CONSULT PROG HNO ID: [id number] Author: CASSI LOVE MD Service: Gastroenterology Author Type: Physician Type: Consult Progress Note Filed: 04/22/2025 14:14 Note Text: GASTROENTEROLOGY CONSULT PROGRESS NOTE Patient Name: Amalia Corral SERVICE DATE: April 22, 2025 SERVICE TIME: 11:07 AM ASSESSMENT MIMA Intermittent dysphagia to solids Intermittent fecal incontinence UTI Chronic atrial fibrillation on Eliquis Reports of weight loss (10#/2 months) Possible right pneumonia vs atelectasis CAD s/p RYAN to RCA (2022), CHB s/p pacemaker, severe pulmonary HTN, DM2, CKD 3A, HTN, hyperlipidemia, dementia Rogers's esophagus PLAN - Plan for colonoscopy in am - Monitor for overt or occult GI blood loss - Eliquis on hold (last dose 04/19 am) - Ferrlecit 250 mg IV daily X 4 doses - Pantoprazole 40 mg twice daily - Zithromax/Rocephin as per IM - Cardiology following - Daily CBC, BMP, Mg - Discussed EGD and colonoscopy with daughter/POA Aric Block ([phone]) and she is agreeable to proceed. - Of note, patient is DNR-CCA, DNI. Daughter agreeable to rescind code status for procedures. Patient seen and examined. Discussed with mid level provider. Chaudhary findings confirmed. Plan as outlined. Will reschedule colonoscopy for tomorrow as prep was inadequate today. Cassi Love MD April 22, 2025 2:13 PM INTERVAL HPI: Patient with inadequate bowel prep last night therefore colonoscopy is cancelled for today. She is without complaints of abdominal pain, nausea or vomiting. EGD pathology with Rogers's Esophagus and no dysplasia PHYSICAL EXAM: Patient Vitals for the past 24 hrs: BP Temp Temp src Pulse Resp SpO2 Weight 04/22/25 0824 137/65 36.7 ?C (98.1 ?F) Temporal Art 72 16 97 % -- 04/22/25 0500 -- -- -- -- -- -- 63.6 kg (140 lb 3.4 oz) 04/21/254 96/57 -- -- 78 -- 96 % -- 04/21/25 2243 90/52 36.7 ?C (98.1 ?F) Oral 77 18 96 % -- 04/21/252040 128/61 -- -- 71 -- 99 % -- 04/21/25 1927 100/68 36.7 ?C (98.1 ?F) Oral 68 18 97 % -- GENERAL: Alert AND oriented x 2 (self and place, not time). Cooperative. NAD EYES: No scleral icterus SKIN: [place] in color. No jaundice LUNGS: Clear to auscultation anteriorly CARDIAC: RRR ABDOMEN: BS x 4. Abdomen soft, non tender, non distended, no palpable masses or organomegaly. No guarding or rebound tenderness elicited EXTREMITIES: No upper or lower extremity edema MEDICATIONS: Current Facility-Administered Medications Medication Dose Route Frequency dextrose 40 % 15 g 15 g ORAL PRN Or glucagon 1 mg injection 1 mg INTRAMUSCULAR PRN Or dextrose 10% iv bolus 12.5 g INTRAVENOUS PRN NaCl 0.9% iv flush bag 20 mL INTRAVENOUS PRN aluminum-magnesium hydroxide-simethicone 200-200-20 mg/5 mL 30 mL 30 mL ORAL q 6 H PRN cefTRIAXone iv piggyback 1 g in dextrose (iso-osmotic) 50 mL (ROCEPHIN) 1 g INTRAVENOUS q 24 H insulin lispro injection (rapid acting) (ADMElog) SUBCUTANEOUS w MEALS azithromycin 250 mg tab(s) (ZITHROMAX) 250 mg ORAL DAILY losartan 25 mg tab(s) (COZAAR) 25 mg ORAL DAILY metoprolol tartrate (short acting) 50 mg tab(s) (LOPRESSOR) 50 mg ORAL BID pravastatin 20 mg tab(s) (PRAVACHOL) 20 mg ORAL AT BEDTIME insulin glargine 6 Units pen (long acting) 6 Units SUBCUTANEOUS BID sertraline (ZOLOFT) tab(s) 75 mg 75 mg ORAL DAILY traZODone 50 mg tab(s) (DESYREL) 50 mg ORAL AT BEDTIME donepezil 10 mg tab(s) (ARICEPT) 10 mg ORAL AT BEDTIME levothyroxine 25 mcg tab(s) (SYNTHROID) 25 mcg ORAL DAILY WITH BREAKFAST acetylcysteine 600 mg cap(s) (NAC) 600 mg ORAL BID cyanocobalamin 1,000 mcg tab(s) (VITAMIN B-12) 1,000 mcg ORAL DAILY furosemide 20 mg tab(s) (LASIX) 20 mg ORAL DAILY ferric gluconate 250 mg in NaCl 0.9% 100 mL (FERRLECIT) 250 mg INTRAVENOUS ONCE AT 6PM acetaminophen 650 mg tab(s) (TYLENOL) 650 mg ORAL q [address] 40 mg tab(s) (PROTONIX) 40 mg ORAL BID AC (0600/1600) [Order Held by [facility]] dapagliflozin propanediol 10 mg tab(s) (FARXIGA) 10 mg ORAL DAILY LABS: CBC, Coags, BMP, Mg, Phos Recent Labs 04/21/25 0447 04/20/25 0422 WBC 6.71 5.82 HB 9.6* 9.2* HCT 31.5* 30.7* PLT 313 281 NA 142 139 K 3.8 3.6* CHLOR 106 103 CO2 23 23 BUN 25* 34* CREAT 1.32* 1.24* GLUC 85 95 CA 9.1 8.9 MG 2.3 2.1 MISC LABS Latest Ref Rng 04/18/2025 Color Yellow Yellow Clarity Clear Cloudy ! Glucose, Urine Negative 2+ ! Bilirubin, Urine Negative Negative Ketones, Urine Negative Negative Specific [place], Ur 1.005 - 1.030 1.015 Hemoglobin/Blood,Ur Negative 3+ ! pH, Urine 5.0 - 8.0 5.0 Protein, Urine Negative 1+ ! Urobilinogen 0.2-1.0 EU/dL 0.2 EU/dL Nitrites Negative Negative Leukest Negative 1+ ! WBC, Urine 0-5 /HPF 0-5 /HPF RBC, Urine 0-3 /HPF >25 /HPF ! Bacteria None Seen /HPF Moderate ! Epithelial Cells /HPF Few Non-Squamous Epithelial Cells None Seen /HPF Few ! SARS-CoV-2 (Agent of (more content not included)... Normal [facility] NURSING PROGon 04-22-2025 NURSING PROG HNO ID: [id number] Author: MORGAN MENDOZA, REAL Service: Nursing Author Type: Registered Nurse Type: Nursing Progress Note Filed: 04/22/2025 14:12 Note Text: PATIENT EDUCATION HEART FAILURE PATIENT NAME: Amalia Corral PATIENT LOCATION: [id number] SURVIVAL SKILLS: Low Sodium Diet Weight Monitoring and Dry Weight Importance of Follow Up after Discharge Fluid Restriction, if applicable Heart Failure Medications Symptom Management related to heart failure Activity / Physical Exercise Recommendations Smoking cessation counseling if applicable When Patient Should Call Provider Attempt visit for Chronic CHF education. No family @ BS. Not a good teaching opportunity d/t dementia diagnosis. Electronically Signed By: Morgan Mendoza [facility] ANES POSTPROC EVALon 025 ANES POSTPROC EVAL HNO ID: [id number] Author: ASAEL WRIGHT MD Service: ? Author Type: Anesthesiologist Type: Anesthesia Postprocedure Evaluation Filed: 04/21/2025 15:15 Note Text: POST ANESTHESIA EVALUATION NOTE : 1950 Procedure Summary Date: 04/21/25 Room / Location: [facility] Endoscopy Anesthesia Start: 903 Anesthesia Stop: 926 Procedure: EGD DIAGNOSTIC Diagnosis: Scheduled Providers: Cassi Love MD; Asael Wright MD Responsible Provider: Asael Wright MD Anesthesia Type: MAC ASA Status: 3 Anesthesia Type: MAC Last Vitals Vitals Value Taken Time BP 136/77 04/21/25 1045 Temp 36.6 ?C (97.8 ?F) 04/21/25 1045 Pulse 89 04/21/25 1045 Respiratory Rate (Per End Tidal CO2) 15 04/21/25 0945 SpO2 96 % 04/21/25 1045 Post Anesthesia Patient Status Patient Evaluation: bedside. Anticipated Disposition: inpatient floor planned admission. Neurological Status: sleepy but arousable. Pulmonary Status: breathing comfortably on room air Airway Control: returned to baseline unsupported. Cardiovascular Status: stable. Pain Management: clinically adequate Postoperative Hydration: acceptable. Intraoperative Events: no significant anesthesia events Post Operative Nausea/Vomiting Status: no significant post operative nausea or vomiting Recommendation: continue current plan of care and pain control. Anesthesia Observations No Documentation SIGNATURE: Asael Wright MD PATIENT NAME: Amalia Corral DATE: April 21, 2025 TIME: 3:15 PM CSN: [id number] [facility] ANES PRE-OPon 04-21-2025 ANES PRE-OP HNO ID: [id number] Author: ASAEL WRIGHT MD Service: ? Author Type: Anesthesiologist Type: Anesthesia Preprocedure Evaluation Filed: 04/21/2025 08:48 Note Text: ANESTHESIOLOGY DAY OF SURGERY NOTE : 1950 Procedure Information Date/Time: 04/21/25 0845 Scheduled providers: Cassi Love MD; Asael Wright MD Procedure: EGD DIAGNOSTIC Location: [facility] Endoscopy Estimated body mass index is 22.63 kg/m? as calculated from the following: Height as of this encounter: 167.6 cm (5' 6"). Weight as of this encounter: 63.6 kg (140 lb 3.4 oz). Most recent hematocrit and potassium results: Hematocrit 31.5 04/21/2025 Potassium 3.8 04/21/2025 Relevant Problems CARDIO (+) Chronic atrial fibrillation (HCC) (+) Complete heart block (HCC) (+) Coronary artery disease 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 (+) Essential hypertension (+) Pulmonary HTN (HCC) (+) Rheumatic aortic valve insufficiency (+) Stable angina ENDO (+) Type 2 diabetes mellitus, with long-term current use of insulin (HCC) -RENAL (+) Stage 3a chronic kidney disease (HCC) PULMONARY (+) Aspiration pneumonia (HCC) I - PHYSICAL EVALUATION AIRWAY Patient intubated: No. Tracheostomy tube not present Mallampati: II. TM distance: >3 FB. Neck ROM: full ROM without neurological symptoms. Mouth opening: adequate. Short neck: no. Thick neck: no DENTAL Dental findings: poor dentition. II - ANESTHESIA PLAN ASA Score: 3 Anesthetic Plan: MAC The patient is not a current smoker. NPO Status: adequate Beta Rajinder Administration of chronic beta rajinder medication planned. Monitoring Plan Monitoring plan: standard ASA. Post Procedure Analgesic Plan Postoperative analgesic plan: multimodal analgesia. Informed Consent Anesthetic risks, benefits, alternatives, personnel and consent discussed: yes. Patient / Responsible Democrat agrees to proceed: yes Patient / Surrogate agrees to blood products: Yes DNR status not reviewed with patient and/or family prior to surgery. Significant changes in the patient condition since the History and Physical, not otherwise documented in primary service progress note: no. Potential Anesthesia issues that may suggest increased risk of complications or contraindication to planned procedure: none. No vitals data found for the desired time range. Facility-Administered Medications as of 04/21/2025 Medication Dose Route Frequency [Transfer Hold] acetaminophen 650 mg tab(s) (TYLENOL) 650 mg ORAL q 6 H PRN [Transfer Hold] ferric gluconate 250 mg in NaCl 0.9% 100 mL (FERRLECIT) 250 mg INTRAVENOUS ONCE AT 6PM [COMPLETED] enoxaparin 60 mg injection (LOVENOX) 60 mg SUBCUTANEOUS ONCE [Transfer Hold] cyanocobalamin 1,000 mcg tab(s) (VITAMIN B-12) 1,000 mcg ORAL DAILY [Transfer Hold] furosemide 20 mg tab(s) (LASIX) 20 mg ORAL DAILY [COMPLETED] acetaminophen 650 mg tab(s) (TYLENOL) 650 mg ORAL ONCE [COMPLETED] furosemide 20 mg injection (LASIX) 20 mg INTRAVENOUS ONCE [COMPLETED] cefTRIAXone iv piggyback 1 g in dextrose (iso-osmotic) 50 mL (ROCEPHIN) 1 g INTRAVENOUS ONCE [COMPLETED] azithromycin 500 mg tab(s) (ZITHROMAX) 500 mg ORAL ONCE [Transfer Hold] dextrose 40 % 15 g 15 g ORAL PRN Or [Transfer Hold] glucagon 1 mg injection 1 mg INTRAMUSCULAR PRN Or [Transfer Hold] dextrose 10% iv bolus 12.5 g INTRAVENOUS PRN [Transfer Hold] NaCl 0.9% iv flush bag 20 mL INTRAVENOUS PRN [Transfer Hold] aluminum-magnesium hydroxide-simethicone 200-200-20 mg/5 mL 30 mL 30 mL ORAL q 6 H PRN [Transfer Hold] cefTRIAXone iv piggyback 1 g in dextrose (iso-osmotic) 50 mL (ROCEPHIN) 1 g INTRAVENOUS q 24 H [Transfer Hold] insulin lispro injection (rapid acting) (ADMElog) SUBCUTANEOUS w MEALS [Transfer Hold] azithromycin 250 mg tab(s) (ZITHROMAX) 250 mg ORAL DAILY [Transfer Hold] losartan 25 mg tab(s) (COZAAR) 25 mg ORAL DAILY [Transfer Hold] metoprolol tartrate (short acting) 50 mg tab(s) (LOPRESSOR) 50 mg ORAL BID [Transfer Hold] pravastatin 20 mg tab(s) (PRAVACHOL) 20 mg ORAL AT BEDTIME [Transfer Hold] insulin glargine 6 Units pen (long acting) 6 Units SUBCUTANEOUS BID [Order Held by [facility]] dapagliflozin propanediol 10 mg tab(s) (FARXIGA) 10 mg ORAL DAILY [Transfer Hold] sertraline (ZOLOFT) tab(s) 75 mg 75 mg ORAL DAILY [Transfer Hold] traZODone 50 mg tab(s) (DESYREL) 50 mg ORAL AT BEDTIME [Transfer Hold] donepezil 10 mg tab(s) (ARICEPT) 10 mg ORAL AT BEDTIME [Transfer Hold] levothyroxine 25 mcg tab(s) (SYNTHROID) 25 mcg ORAL DAILY WITH BREAKFAST [Transfer Hold] acetylcysteine 600 mg cap(s) (NAC) 600 mg ORAL BID Outpatient Medications as of 04/21/2025 Medication Sig FARXIGA 10 mg tablet Take 1 tablet by mouth once daily. aspirin 81 mg cap Take 81 mg by mouth once daily. losartan (COZAAR) 25 mg tablet Take 25 mg by mouth once daily. metoprolol tartrate, short acting, (LOPRESSOR) 50 mg tablet Take 50 mg by mouth two (more content not included)... [facility] BRIEF OP NOTon 04-21-2025 BRIEF OP NOT HNO ID: [id number] Author: CASSI LOVE MD Service: Gastroenterology Author Type: Physician Type: Brief Op Note Filed: 04/21/2025 09:28 Note Text: BRIEF OPERATIVE NOTE LOG ID: [id number] SURGERY/PROCEDURE DATE: 04/21/2025 INCISION/PROCEDURE START TIME: 909 INCISION CLOSE/PROCEDURE END TIME: 922 SURGEON(S)/PROCEDURALIST(S) AND DEALER CARD ROOM(S): Surgeons and Role: * Cassi Love MD - Proceduralist No Additional Staff PROCEDURE(S): #1 esophagogastroduodenoscopy with biopsies #2 indirect dilation of the esophagus using 58 Citizen [place] Baeza dilator ANESTHESIA: MAC FINDINGS: see dictated note ESTIMATED BLOOD LOSS: minimal SPECIMENS: #1 duodenal biopsies #2 antral biopsies #3 irregular GE junction COMPLICATIONS: None PRE-OP/PRE-PROCEDURE DIAGNOSIS: #1 iron deficiency anemia #2 intermittent heartburn #3 intermittent dysphagia with solids POST-OP/POST-PROCEDURE DIAGNOSIS: #1 mild erosive antritis #2. 2 cm hiatus hernia #3 slightly irregular GE junction #4 mild Schatzki's ring at the GE junction (acquired)-uneventful dilation SIGNATURE: Cassi Love MD PATIENT NAME: Amalia Corral DATE: April 21, 2025 TIME: 9:08 AM PAGER/CONTACT #: Normal [facility] Basic metabolic 2000 panelon 04-21-2025 Anion gap [Moles/Vol] 13 mmol/L Normal 8-15 [facility] Comment on above: Order Comment: Speci men Type: BLOOD SPECIMEN Ordering Facility: [facility] Address: [address] [place] [address] Performed By: #### 2 4321-2, #### [facility] CLIA [id number] [address] [place] [address] [place] Calcium [Mass/Vol] 9.1 mg/dL Normal 8.5-10.2 [facility] Comment on above: Order Comment: Speci men Type: BLOOD SPECIMEN Ordering Facility: [facility] Address: [address] [place] [address] Performed By: #### 2 4321-2, #### [facility] CLIA [id number] [address] [place] [address] [place] Chloride [Moles/Vol] 106 mmol/L Normal 98-107 [facility] Comment on above: Order Comment: Speci men Type: BLOOD SPECIMEN Ordering Facility: [facility] Address: [address] [place] [address] Performed By: #### 2 4321-2, #### [facility] CLIA [id number] [address] [place] [address] [place] CO2 [Moles/Vol] 23 mmol/L Normal 22-30 [facility] Comment on above: Order Comment: Speci men Type: BLOOD SPECIMEN Ordering Facility: [facility] Address: [address] [place] [address] Performed By: #### 2 4321-2, #### [facility] CLIA [id number] [address] [place] [address] [place] Creatinine [Mass/Vol] 1.32 mg/dL High 0.58-0.96 [facility] Comment on above: Order Comment: Speci men Type: BLOOD SPECIMEN Ordering Facility: [facility] Address: [address] [place] [address] Performed By: #### 2 4321-2, #### [facility] CLIA [id number] [address] [place] [address] [place] eGFRcr SerPlBld CKD-EPI 2020 42 mL/min/1.73m??? Low >=60 [facility] Comment on above: Order Comment: Colten bustamante Type: BLOOD SPECIMEN Ordering Facility: [facility] Address: [address] [place] [address] Result Comment: Haylee mated Glomerular Filtration Rate (eGFR) is calculated using the 2020 CKD-EPI creatinine equation. This equation utilizes serum creatinine, sex, and age as parameters. The creatinine assay has traceable calibration to isotope dilution-mass spectrometry. Refer to KDIGO guidelines for clinical interpretation. In patients with unstable renal function, e.g. those with acute kidney injury, the eGFR may not accurately reflect actual GFR. Performed By: #### 2 432-, #### [facility] CLIA [id number] [address] [place] [address] [place] Glucose [Mass/Vol] 85 mg/dL Normal 74-99 [facility] Comment on above: Order Comment: Colten bustamante Type: BLOOD SPECIMEN Ordering Facility: [facility] Address: [address] [place] [address] Result Comment: The [place] Diabetes Association (ADA) provides guidance for cutoff values for fasting glucose and random glucose. The ADA defines fasting as no caloric intake for at least 8 hours. Fasting plasma glucose results between 100 to 125 mg/dL indicate increased risk for diabetes (prediabetes). Fasting plasma glucose results greater than or equal to 126 mg/dL meet the criteria for diagnosis of diabetes. In the absence of unequivocal hyperglycemia, results should be confirmed by repeat testing. In a patient with classic symptoms of hyperglycemia or hyperglycemic crisis, random plasma glucose results greater than or equal to 200 mg/dL meet the criteria for diagnosis of diabetes. Reference: Standards of Medical Care in Diabetes 2016, [place] Diabetes Association. Diabetes Care. 2016.39(Suppl 1). Performed By: #### 2 4321-2, #### [facility] CLIA [id number] [address] [place] [address] [place] Potassium [Moles/Vol] 3.8 mmol/L Normal 3.7-5.1 [facility] Comment on above: Order Comment: Speci men Type: BLOOD SPECIMEN Ordering Facility: [facility] Address: [address] [place] [address] Performed By: #### 2 432-2, #### [facility] CLIA [id number] [address] STATES OF [facility] Sodium [Moles/Vol] 142 mmol/L Normal 136-144 [facility] Comment on above: Order Comment: Speci men Type: BLOOD SPECIMEN Ordering Facility: [facility] Address: [address] [place] [address] Performed By: #### 2 4320-2, #### [facility] CLIA [id number] [address] [place] Urea nitrogen [Mass/Vol] 25 mg/dL High 7-21 [facility] Comment on above: Order Comment: Speci men Type: BLOOD SPECIMEN Ordering Facility: [facility] Address: [address] [place] [address] Performed By: #### 2 4320-2, #### [facility] CLIA [id number] [address] [place] CBC panel Auto (Bld)on 04-21 Erythrocyte distribution width (RBC) [Ratio] 20.7 % High 11.5-15.0 [facility] Comment on above: Order Comment: Speci men Type: BLOOD SPECIMEN Ordering Facility: [facility] Address: [address] [place] [address] Performed By: #### 2 4320-2, #### [facility] CLIA [id number] [address] Hematocrit (Bld) [Volume fraction] 31.5 % Low 36.0-46.0 [facility] Comment on above: Order Comment: Speci men Type: BLOOD SPECIMEN Ordering Facility: [facility] Address: [address] [place] [address] Performed By: #### 2 4320-2, #### [facility] CLIA [id number] [address] Hemoglobin (Bld) [Mass/Vol] 9.6 g/dL Low 11.5-15.5 [facility] Comment on above: Order Comment: Speci men Type: BLOOD SPECIMEN Ordering Facility: [facility] Address: [address] [place] [address] Performed By: #### 2 4321-2, #### [facility] CLIA [id number] [address] MCH (RBC) [Entitic mass] 24.8 pg Low 26.0-34.0 [facility] Comment on above: Order Comment: Speci men Type: BLOOD SPECIMEN Ordering Facility: [facility] Address: [address] [place] [address] Performed By: #### 2 2, #### [facility] CLIA [id number] [address] MCHC (RBC) [Mass/Vol] 30.5 g/dL Normal 30.5-36.0 [facility] Comment on above: Order Comment: Speci men Type: BLOOD SPECIMEN Ordering Facility: [facility] Address: [address] [place] [address] Performed By: #### 2 4320-2, #### [facility] CLIA [id number] [address] MCV (RBC) [Entitic vol] 81.4 fL Normal 80.0-100.0 [facility] Comment on above: Order Comment: Speci men Type: BLOOD SPECIMEN Ordering Facility: [facility] Address: [address] [place] [address] Performed By: #### 2 4320-2, #### [facility] CLIA [id number] [address] Nucleated RBC (Bld) [#/Vol] 10*3/uL Normal <0.01 [facility] Comment on above: Order Comment: Speci men Type: BLOOD SPECIMEN Ordering Facility: [facility] Address: [address] [place] [address] Performed By: #### 2 4321-2, #### [facility] CLIA [id number] [address] [place] [address] [place] Platelet mean volume (Bld) [Entitic vol] 9.1 fL Normal 9.0-12.7 [facility] Comment on above: Order Comment: Speci men Type: BLOOD SPECIMEN Ordering Facility: [facility] Address: [address] [place] [address] Performed By: #### 2 4320-2, #### [facility] CLIA [id number] [address] [place] [address] [place] Platelets (Bld) [#/Vol] 313 10*3/uL Normal 150-400 [facility] Comment on above: Order Comment: Speci men Type: BLOOD SPECIMEN Ordering Facility: [facility] Address: [address] [place] [address] Performed By: #### 2 4320-2, #### [facility] CLIA [id number] [address] [place] [address] [place] RBC (Bld) [#/Vol] 3.87 10*6/uL Low 3.90-5.20 [facility] Comment on above: Order Comment: Speci men Type: BLOOD SPECIMEN Ordering Facility: [facility] Address: [address] [place] [address] Performed By: #### 2 4320-2, #### [facility] CLIA [id number] [address] [place] WBC (Bld) [#/Vol] 6.71 10*3/uL Normal 3.70-11.00 [facility] Comment on above: Order Comment: Speci men Type: BLOOD SPECIMEN Ordering Facility: [facility] Address: [address] [place] [address] Performed By: #### 2 4320-2, #### [facility] CLIA [id number] [address] [place] CNDSon 04-21-2025 CNDS HNO ID: [id number] Author: SAL SANTIAGO MD Service: Hospital Medicine Author Type: Physician Type: Discharge Summary Filed: 04/21/2025 11:23 Note Text: DISCHARGE SUMMARY PATIENT NAME: Amalia Corral Code Status: DNR-CCA Highest Readmission Risk Score: 22 The 30 day readmissions risk score is derived from an internally validated risk model which evaluates patient level characteristics, utilization history, medication orders and lab results up until the day of discharge. Patients with a score of 39 or above are considered highest risk for readmission. Specific patient level drivers will be listed at the bottom of the summary. Addendum: DC cancelled. GI wants to do a colonoscopy. Plan for DC tomorrow Admission Information Admission Information ADMIT DATE: 04/18/2025 DISCHARGE DATE: 04/21/25 MY DOCTORS AND MEDICAL TEAM: My Main Hospital Doctor: Sal Santiago MD Primary Care Provider: Rajat Patel MD My Medical Team Members: Treatment Team: Attending Provider: Sal Santiago MD Primary Service: , [facility] Consulting: Cassi Love MD MY CONDITION AT DISCHARGE: Stable REASON I WAS IN THE HOSPITAL: Fall at SNF with tailbone fracture. The fracture is non-displaced and will heal over time. Use tylenol for pain relief. Avoid ibuprofen/motrin/naproxen. You had a pneumonia and bladder infection. Complete the pill antibiotic course. You have iron deficiency anemia. Take iron every other day to improve blood counts. Discontinue aspirin. You had an endoscopy to look at the stomach. You have stomach inflammation and a narrowed esophagus that was dilated to avoid future trouble swallowing food. Take pantoprazole to heal stomach inflammation and avoid anemia. Follow up with Hematology to track blood counts and Gastroenterology to do a colonoscopy if still anemic in the future. Referral to Hematology and Gastroenterology placed. Sunday-Sunday after 9 am, call mimeograph operator at [phone] ext-[phone] and ask for the appointment line to schedule an appointment. Eat soft foods until 04/23 since you had an endoscopy with dilation. SUMMARY OF WHAT HAPPENED WHILE I WAS IN THE HOSPITAL: see above OTHER PROBLEMS/DIAGNOSIS: Principal Problem (Resolved): Community acquired pneumonia of right lower lobe of lung Active Problems: Coronary artery disease 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 Type 2 diabetes mellitus, with long-term current use of insulin (HCC) Chronic atrial fibrillation (HCC) Complete heart block (HCC) Dementia (HCC) Anemia Stage 3a chronic kidney disease (HCC) Coccygeal fracture (HCC) Chronic systolic CHF (congestive heart failure) (HCC) Resolved Problems: Permanent atrial fibrillation (HCC) Primary hypertension On continuous oral anticoagulation S/P placement of leadless cardiac pacemaker Altered mental status Acute combined systolic and diastolic congestive heart failure (HCC) Elevated brain natriuretic peptide (BNP) level Abnormal CT scan, lumbar spine Aspiration pneumonia (HCC) OPERATIONS PERFORMED WHILE IN THE HOSPITAL: None IMPORTANT TEST/PROCEDURES: No procedures performed TEST RESULTS NOT AVAILABLE AT THIS TIME: No pending results Discharge Disposition Discharge Disposition: Home With Self Care Follow Up Appointments Follow-Up Appointment With: Patient's Primary Care Provider When: In: Patient/Parents to call for appointment?: Yes First available, usual location Additional Provider to Provider Information: Ms. Corral, your 74 years have been affected by Dm2 afib CKD3 HTN CAD with prior stents (2023 most recent), CHB s/p pacemaker, S-CHF, HPL dementia. You presented to the hospital with multiple issues after returning home from a SNF. Patient was at a SNF recently while daughter was on vacation. 1. Had fall at SNF. 2. Had episodes of N/V at SNF. 3. Had episode of Shortness of Breath while at store with daughter after returning home prompting ED eval. Cystitis and aspiration PNA - resolved with abx -fell at SNF. Has evidence of non-displaced coccygeal fracture. Family declined PT OT. Patient ambulating. Iron def anemia improved with iron. Rx iron, ppi, dc aspirin. Had EGD with gastritis/schatzki ring s/p dilation. F/u with hemonc and GI for anemia and colonoscopy respectively. Soft foods until 04/23. Transitions of Care Critical Issues: SPECIALIST FOLLOW-UP: GI and hematology [place] MEDICATION CHANGES: see med list LABS AND PROCEDURES PENDING AT DISCHARGE: No pending results. FOLLOW-UP APPOINTMENTS ALREADY SCHEDULED WITH A [facility] PROVIDER: Future Appointments Date Time Provider Department Center 11/18/2025 11:40 AM Chloe Strong MD [facility] ALLERGIES Allergen Reactions Marco Inhibitors Cough Losartan Potassium Rash At higher doses (ok at low dose) DISCHARGE MEDICATION: Medication List START taking these (more content not included)... Normal [facility] HISTORY PHYSICALon HISTORY PHYSICAL HNO ID: [id number] Author: CASSI LOVE MD Service: Gastroenterology Author Type: Physician Type: H&P Filed: 04/21/2025 09:06 Note Text: UPDATED HISTORY AND PHYSICAL EXAMINATION PATIENT NAME: Amalia Corral DATE of SERVICE: 04/21/2025 TIME of SERVICE: 9:06 AM PHYSICAL EXAM MUST BE COMPLETED ON ADMISSION The History and Physical (completed in the past 30 days) has been reviewed and the patient has been examined. The contents accurately reflect the patient's condition with the following additions or revisions since the HANDP was completed. Examination indicates no changes SIGNATURE: Cassi Love MD DATE: April 21, 2025 TIME: 9:06 AM Normal [facility] Magnesium SerPl-mCncon 04-21 Magnesium [Mass/Vol] 2.3 mg/dL Normal 1.7-2.3 [facility] Comment on above: Order Comment: Speci men Type: BLOOD SPECIMEN Ordering Facility: [facility] Address: [address] [place] [address] Performed By: #### 2 4321-2, 27566-3 #### [facility] CLIA [id number] [address] [place] [id number] [place] [address] OF [facility] OPERATIVE NOon 04-21-2025 OPERATIVE NO HNO ID: [id number] Author: CASSI LOVE MD Service: Gastroenterology Author Type: Physician Type: Operative Report Filed: 04/21/2025 14:08 Note Text: [facility] - Operative Report AMALIA CORRAL : 1950 AGE: 74. SEX: F PATIENT TYPE: I HOSP SVC: Medical [facility] ATTENDING PHYSICIAN: SAL SANTIAGO CSN NUMBER: [id number] DATE OF SURGERY/PROCEDURE: 04/21/2025 INCISION/PROCEDURE START TIME: The scope in time was 09:10. INCISION CLOSE/PROCEDURE END TIME: The scope out time was 09:23. PREOPERATIVE DIAGNOSIS: 1. Iron-deficiency anemia. 2. Intermittent heartburn. 3. Intermittent dysphagia with solids. POSTOPERATIVE DIAGNOSIS: 1. Mild erosive antritis. 2. 2 cm hiatal hernia. 3. Slightly irregular gastroesophageal junction, histology pending. 4. Mild Schatzki ring at the GE junction (acquired), uneventful dilation. SURGEON: Cassi Love M.D. DEALER CARD ROOM: Bina [facility]. SURGERY/PROCEDURE: 1. Esophagogastroduodenoscopy with biopsies. 2. Indirect dilation of esophagus. ANESTHESIA: MAC. INDICATIONS: The patient is a 74-year-old female, who presents with iron- deficiency anemia. She has history of intermittent heartburn as well as intermittent dysphagia with solids. Hence, an upper GI endoscopy was undertaken for further assessment. CONSENT: The procedure was explained to the patient and her daughter. Informed consent was obtained from the patient's daughter prior to the procedure. DESCRIPTION OF PROCEDURE: Esophagogastroduodenoscopy: The procedure was performed using monitored anesthesia care. She was positioned in the left lateral position. The Olympus GIF-H190 video endoscope was advanced under direct vision to the second part of the duodenum without difficulty. A 2 cm hiatal hernia was present. The gastroesophageal junction was slightly irregular and hence, biopsies were obtained from the GE junction to rule out intestinal metaplasia and dysplasia. A mild concentric ring was also seen at the GE junction. There was no evidence for esophagitis. No varices were seen either in the esophagus or the gastric fundus. The mucosa of the gastric fundus and body revealed no abnormality. The mucosa of the gastric antrum revealed mild erosive antritis. Biopsies were obtained from the antrum for H pylori. The pylorus was normal in size and shape. The duodenum appeared unremarkable up to the second part. After inspection of the upper GI tract, the endoscope was gently retrieved. It was then elected to undertake indirect dilation of the esophagus. Indirect dilation of esophagus: The esophagus was dilated using 58-Citizen Of [place] Baeza dilator. The patient tolerated the procedure well and was returned to the recovery area in good condition. IMPRESSION: 1. Mild erosive antritis. 2. 2 cm hiatal hernia. 3. Slightly irregular gastroesophageal junction, histology pending. 4. Mild Schatzki ring, uneventful dilation. RECOMMENDATIONS: 1. Await histology. 2. Commence pantoprazole 40 mg twice daily. 3. Continue Ferrlecit 250 mg IV daily x4 doses. 4. A colonoscopy should be undertaken for further evaluation of iron-deficiency anemia. Cassi Love M.D. BKS:[id number] /[id number] Normal [facility] Pathology biopsy report Art (Tiss)on 04-21-2025 AP DISCLAIMER Normal [facility] Comment on above: Order Comment: Colten bustamante Type: BLOOD SPECIMEN Ordering Facility: [facility] Address: [address] [place] [address] Result Comment: Brandon camara Developed Test (LDT) Disclaimer: Performance characteristics of immunohistochemical, immunofluorescent, and chromogenic in-situ hybridization tests have been determined by the performing laboratory within [facility] Pathology and Laboratory Medicine Department ([facility], [facility], [facility], [facility], [facility], [facility], or [facility]) in a manner consistent with CLIA requirements. One or more of these tests may not have been cleared or approved by the FDA. [facility] is regulated under CLIA as qualified to perform high-complexity testing. These tests are used for clinical purposes. These should not be regarded as investigational or for research. Positive and negative controls stain appropriately. Performed By: #### 5 8410-2 #### [facility] CLIA [id number] [address] CASE REPORT Normal [facility] Comment on above: Order Comment: Colten bustamante Type: BLOOD SPECIMEN Ordering Facility: [facility] Address: [address] [place] [address] Result Comment: Surg [facility] Pathology Report Case: [id number] Authorizing Provider: Cassi oLve MD Collected: 04/21/2025 09:12 AM Ordering Location: [facility] Endoscopy Received: 04/21/2025 09:56 AM Pathologist: Marybel Lion MD Specimens: A) - Small Bowel, Duodenum, Biopsy, R/O Celiac B) - Stomach, Biopsy, R/O H Pylori C) - Esophagogastric Junction, Biopsy, R/O Rogers's Performed By: #### 5 8410-2 #### [facility] CLIA [id number] [address] DIAGNOSIS COMMENT C. Correlation with the endoscopic findings is required in order to determine if this fulfills the criteria for Rogers's esophagus. [facility] Comment on above: Order Comment: Speci men Type: BLOOD SPECIMEN Ordering Facility: [facility] Address: [address] [place] [address] Performed By: #### 5 8410-2 #### [facility] CLIA [id number] [address] FINAL DIAGNOSIS [facility] Comment on above: Order Comment: Speci men Type: BLOOD SPECIMEN Ordering Facility: [facility] Address: [address] [place] [address] Result Comment: Aguilar Spann uodenum, biopsy: - No significant pathologic change. B. Stomach, biopsy: - Focal erosion and changes consistent with reactive gastropathy. - No morphologic evidence of Helicobacter pylori. C. Esophagogastric junction, biopsy: - Squamocolumnar mucosa with focal intestinal metaplasia, negative for dysplasia. See comment. CAROL/darrick 04/22/2025 at 1047 EDT Performed By: #### 5 8410-2 #### [facility] CLIA [id number] [address] FINAL PERFORMING LAB [facility] Comment on above: Order Comment: Speci men Type: BLOOD SPECIMEN Ordering Facility: [facility] Address: [address] [place] [address] Result Comment: Diag nostic interpretation performed at: [facility], [address] [place] [address], [facility] [place] [address] CLIA# [id number] Manufacturing Engineering Technologist: Nico Carson MD Performed By: #### 5 8410-2 #### [facility] CLIA [id number] [address] GROSS DESCRIPTION [facility] Comment on above: Order Comment: Speci men Type: BLOOD SPECIMEN Ordering Facility: [facility] Address: [address], [place] [address] Result Comment: A. S mall Bowel, Duodenum, Biopsy Received in formalin are multiple pieces of ennis, soft tissue aggregating to 1.0 x 0.7 x 0.3 cm. Totally submitted in one cassette. B. Stomach, Biopsy Received in formalin are multiple pieces of ennis-pink, soft tissue aggregating to 0.9 x 0.5 x 0.3 cm. Totally submitted in one cassette. C. Esophagogastric Junction, Biopsy Received in formalin are multiple pieces of ennis, soft tissue aggregating to 0.9 x 0.5 x 0.3 cm. Totally submitted in one cassette. CL April 21, 2025 2:27 PM Gross examination performed at [facility], [address] [place] [address] Performed By: #### 5 8410-2 #### [facility] CLIA [id number] [address] [place] [address] [facility] THERAPY NTon 04-21-2025 THERAPY NT HNO ID: [id number] Author: RANDI WIN OT/L Service: Occupational Therapy Author Type: Occupational Therapist Type: Therapy (PT/OT/Speech/Resp) Filed: 04/21/2025 12:05 Note Text: Summary: OT Evaluation Occupational Therapy Evaluation Summary SERVICE DATE: 04/21/2025 SERVICE TIME: 1128 to 1151 ROOM: [place] [address] OT 6 Clicks Score: 20 DISCHARGE RECOMMENDATIONS Home OT Recommended Discharge Disposition Comments: with 23/04 supervision and assistance for ADLs, IADLs, functional mobility and transfers Anticipated Discharge Needs: Physical Assist at Home, Supervision at Home Physical Assist at Home for: Cleaning, Laundry, Meals, Medication Management, Safety, Self Care, Shopping, Transportation, Finances, Stairs Supervision at Home due to: Impaired cognition, Decreased safety awareness Recommended Discharge Equipment: No equipment needs anticipated ASSESSMENT Response to Therapy Interventions: Cognitive Deficits, Good Participation in Activities, On-Track to Achieve Discharge Goals pt is pleasantly confused throughout session although able to follow simple commands appropriately with minimal cueing. Deficits in memory, sequencing, problem solving noted on Short Blessed Test (see results below). Pt currently requires no more than CGA with ADL with a walker for safety and stability. Anticipate safe d/c home with Home OT and 24/7 supervision/assistance PRECAUTIONS Fall Risk, Bed/Chair Alarm, Impulsive with Activity CURRENT HOSPITAL COURSE SOB, s/p falls. non-displaced coccygeal fracture. Relevant Past Medical History: Osteopenia, DM, HLD, HTN, a-fib, hypothyroid, CKD HOME LIVING Patient Lives With: Spouse, Family, Other: See Comment Comments: spouse and daughter Assistance Available: 24-Hour, Other: See Comment Comments: per CM note, daughter is caregiver and patient also goes to adult daycare 3 days per week. Entry To Home: Stairs, With Rail Number Of Stairs Into Home: 3 Number Of Stairs To Bed/Bath: 0 Tub/Shower Type: walk-in shower with grab bars Laundry: on main level. Patient completes. Equipment Owned: Grab Bars- Shower, Rollator, Walker- Wheeled, Elevated Toilet Seat, Shower Chair, Hand Held Shower, Cane, Wheelchair- Manual (transport wc) PRIOR FUNCTIONAL LEVEL Within Functional Limits, Required Assistance, History of Falls Assistance Required With: Finances, Laundry, Cleaning, Meals, Medication Management, Stairs, Safety, Self Care, Shopping, Transportation Patient is a poor historian. Per daughter, patient requires sup/indep without AD at baseline, 2 falls in the last 6 months. Daughter provides near 24/7 supervision and assistance with ADL, IADL tasks, med management, shopping and transportation. SUBJECTIVE RN cleared to work with pt; pt pleasant and agreeable to this session COGNITION Orientation Deficits: Not oriented to Time, Not oriented to Situation (able to state current month/day with use of white board, states 2021 for current year) Responsiveness: Alert, Awake Follows Commands: 1-step Commands, Cueing Needed Cueing to Follow Commands: Minimum Memory Deficits: Short Term, Recall of Recent Events Executive Function Deficits: Insight to Deficits Short Blessed Final Score: 24 (04/21/25) The Short Blessed Test is a cognitive assessment that measures in the domains of orientation, concentration/attention, and short-term recall. Please note that this assessment is not used to diagnose dementia but rather is used as a screening tool for early detection of cognitive changes and need for further assessment/testing. Scoring guidelines are as follows: 0-8: Normal to minimal impairment 9-19: Moderate impairment 20-28: Severe impairment Based on clinical research findings from the Memory and Aging Project, the following cut points may be considered: ? 0 - 4: Normal cognition ? 5 - 9: Questionable impairment (evaluate for early dementing disorder) ? 10 or more: Impairment consistent with dementia (evaluate for dementing disorder) THERAPY DIAGNOSIS Reduced mobility-other, Decreased activities of daily living (ADL), Signs and Symptoms Involving Cognitive Functions and Awareness TREATMENT INTERVENTIONS Evaluation, Therapeutic Activity (43210) Timed Code Treatment (minutes): 8 Skilled Treatment Time (minutes): 23 TRAINING AND EDUCATION PROVIDED Assistive Device Use, Benefits of In-Hospital Mobility, Cognitive Skills, Cognitive Prosthetics, Command Following, Discharge Planning, Executive Functions/Problem Solving, Functional Mobility Involving ADLs, Grooming Tasks, Identification of Systems of Support, Role of Occupational Therapy, Safety/Judgment, Standing Balance to Improve Cache with ADLs/Self-Care, Transfer - Bed to Chair, Transfer - Sit to Stand (more content not included)... [facility] THERAPY NT HNO ID: [id number] Author: RANDI WIN OT/Natalie Service: Occupational Therapy Author Type: Occupational Therapist Type: Therapy (PT/OT/Speech/Resp) Filed: 04/21/2025 08:22 Note Text: OCCUPATIONAL THERAPY MISSED VISIT SERVICE DATE: 04/21/2025 SERVICE TIME: 820 ROOM: [facility] (01) Patient not seen due to Test / Procedure. Will re-attempt as schedule allows. SIGNATURE: TAVO Meraz PATIENT NAME: Amalia Corral DATE: April 21, 2025 TIME: 8:21 AM [facility] Basic metabolic 2000 panelon 04-20-2025 Anion gap [Moles/Vol] 13 mmol/L Normal 8-15 [facility] Comment on above: Order Comment: Speci men Type: BLOOD SPECIMEN Ordering Facility: [facility] Address: [address] [place] [address] Performed By: #### 2 4321-2, #### [facility] CLIA [id number] [address] [place] [address] [place] Calcium [Mass/Vol] 8.9 mg/dL Normal 8.5-10.2 [facility] Comment on above: Order Comment: Speci men Type: BLOOD SPECIMEN Ordering Facility: [facility] Address: [address] [place] [address] Performed By: #### 2 4321-2, #### [facility] CLIA [id number] [address] [place] [address] [place] Chloride [Moles/Vol] 103 mmol/L Normal 98-107 [facility] Comment on above: Order Comment: Speci men Type: BLOOD SPECIMEN Ordering Facility: [facility] Address: [address] [place] [address] Performed By: #### 2 4321-2, #### [facility] CLIA [id number] [address] [place] [address] [place] CO2 [Moles/Vol] 23 mmol/L Normal 22-30 [facility] Comment on above: Order Comment: Speci men Type: BLOOD SPECIMEN Ordering Facility: [facility] Address: [address] [place] [address] Performed By: #### 2 4321-2, #### [facility] CLIA [id number] [address] [place] [address] [place] Creatinine [Mass/Vol] 1.24 mg/dL High 0.58-0.96 [facility] Comment on above: Order Comment: Speci men Type: BLOOD SPECIMEN Ordering Facility: [facility] Address: [address] [place] [address] Performed By: #### 2 4321-2, #### [facility] CLIA [id number] [address] [place] [address] [place] eGFRcr SerPlBld CKD-EPI 2020 45 mL/min/1.73m??? Low >=60 [facility] Comment on above: Order Comment: Colten bustamante Type: BLOOD SPECIMEN Ordering Facility: [facility] Address: [address] [place] [address] Result Comment: Haylee mated Glomerular Filtration Rate (eGFR) is calculated using the 2020 CKD-EPI creatinine equation. This equation utilizes serum creatinine, sex, and age as parameters. The creatinine assay has traceable calibration to isotope dilution-mass spectrometry. Refer to KDIGO guidelines for clinical interpretation. In patients with unstable renal function, e.g. those with acute kidney injury, the eGFR may not accurately reflect actual GFR. Performed By: #### 2 4321-2, #### [facility] CLIA [id number] [address] [place] [address] [place] Glucose [Mass/Vol] 95 mg/dL Normal 74-99 [facility] Comment on above: Order Comment: Colten bustamante Type: BLOOD SPECIMEN Ordering Facility: [facility] Address: [address] [place] [address] Result Comment: The [place] Diabetes Association (ADA) provides guidance for cutoff values for fasting glucose and random glucose. The ADA defines fasting as no caloric intake for at least 8 hours. Fasting plasma glucose results between 100 to 125 mg/dL indicate increased risk for diabetes (prediabetes). Fasting plasma glucose results greater than or equal to 126 mg/dL meet the criteria for diagnosis of diabetes. In the absence of unequivocal hyperglycemia, results should be confirmed by repeat testing. In a patient with classic symptoms of hyperglycemia or hyperglycemic crisis, random plasma glucose results greater than or equal to 200 mg/dL meet the criteria for diagnosis of diabetes. Reference: Standards of Medical Care in Diabetes 2016, [place] Diabetes Association. Diabetes Care. 2016.39(Suppl 1). Performed By: #### 2 4321-2, #### [facility] CLIA [id number] [address] [place] [address] [place] Potassium [Moles/Vol] 3.6 mmol/L Low 3.7-5.1 [facility] Comment on above: Order Comment: Speci men Type: BLOOD SPECIMEN Ordering Facility: [facility] Address: [address] [place] [address] Performed By: #### 2 4321-2, #### [facility] CLIA [id number] [address] Sodium [Moles/Vol] 139 mmol/L Normal 136-144 [facility] Comment on above: Order Comment: Speci men Type: BLOOD SPECIMEN Ordering Facility: [facility] Address: [address] [place] [address] Performed By: #### 2 4321-2, #### [facility] CLIA [id number] [address] [place] Urea nitrogen [Mass/Vol] 34 mg/dL High 04-20 [facility] Comment on above: Order Comment: Speci men Type: BLOOD SPECIMEN Ordering Facility: [facility] Address: [address] [place] [address] Performed By: #### 2 432-2, #### [facility] CLIA [id number] [address] CBC panel Auto (Bld)on 04-20 Erythrocyte distribution width (RBC) [Ratio] 20.4 % High 11.5-15.0 [facility] Comment on above: Order Comment: Speci men Type: BLOOD SPECIMEN Ordering Facility: [facility] Address: [address] [place] [address] Performed By: #### 5 8410-2 #### [facility] CLIA [id number] [address] Hematocrit (Bld) [Volume fraction] 30.7 % Low 36.0-46.0 [facility] Comment on above: Order Comment: Speci men Type: BLOOD SPECIMEN Ordering Facility: [facility] Address: [address] [place] [address] Performed By: #### 5 8410-2 #### [facility] CLIA [id number] [address] [place] Hemoglobin (Bld) [Mass/Vol] 9.2 g/dL Low 11.5-15.5 [facility] Comment on above: Order Comment: Speci men Type: BLOOD SPECIMEN Ordering Facility: [facility] Address: [facility] [place] [address] Performed By: #### 5 8410-2 #### [facility] CLIA [id number] [address] MCH (RBC) [Entitic mass] 24.1 pg Low 26.0-34.0 [facility] Comment on above: Order Comment: Speci men Type: BLOOD SPECIMEN Ordering Facility: [facility] Address: [address] [place] [address] Performed By: #### 5 8410-2 #### [facility] CLIA [id number] [address] MCHC (RBC) [Mass/Vol] 30.0 g/dL Low 30.5-36.0 [facility] Comment on above: Order Comment: Speci men Type: BLOOD SPECIMEN Ordering Facility: [facility] Address: [address] [place] [address] Performed By: #### 5 8410-2 #### [facility] CLIA [id number] [address] MCV (RBC) [Entitic vol] 80.4 fL Normal 80.0-100.0 [facility] Comment on above: Order Comment: Speci men Type: BLOOD SPECIMEN Ordering Facility: [facility] Address: [address] [place] [address] Performed By: #### 5 8410-2 #### [facility] CLIA [id number] [address] Nucleated RBC (Bld) [#/Vol] 10*3/uL Normal <0.01 [facility] Comment on above: Order Comment: Speci men Type: BLOOD SPECIMEN Ordering Facility: [facility] Address: [address] [place] [address] Performed By: #### 5 8410-2 #### [facility] CLIA [id number] [address] [place] [address] [place] Platelet mean volume (Bld) [Entitic vol] 9.1 fL Normal 9.0-12.7 [facility] Comment on above: Order Comment: Colten bustamante Type: BLOOD SPECIMEN Ordering Facility: [facility] Address: [address] [place] [address] Performed By: #### 5 8410-2 #### [facility] CLIA [id number] [address] [place] Platelets (Bld) [#/Vol] 281 10*3/uL Normal 150-400 [facility] Comment on above: Order Comment: Colten bustamante Type: BLOOD SPECIMEN Ordering Facility: [facility] Address: [address] [place] [address] Performed By: #### 5 8410-2 #### [facility] CLIA [id number] [address] RBC (Bld) [#/Vol] 3.82 10*6/uL Low 3.90-5.20 [facility] Comment on above: Order Comment: Colten bustamante Type: BLOOD SPECIMEN Ordering Facility: [facility] Address: [address] [place] [address] Performed By: #### 5 8410-2 #### [facility] CLIA [id number] [address] WBC (Bld) [#/Vol] 5.82 10*3/uL Normal 3.70-11.00 [facility] Comment on above: Order Comment: Colten bustamante Type: BLOOD SPECIMEN Ordering Facility: [facility] Address: [address] [place] [address] Performed By: #### 5 8410-2 #### [facility] CLIA [id number] [address] CONSULTon 04-20-2025 CONSULT HNO ID: [id number] Author: CASSI LOVE MD Service: Gastroenterology Author Type: Physician Type: Consults Filed: 04/20/2025 12:19 Note Text: GASTROENTEROLOGY CONSULT NOTE PATIENT NAME: Amalia Corral SERVICE DATE: April 20, 2025 SERVICE TIME: 8:23 AM PRIMARY CARE PHYSICIAN: Rajat Patel MD ATTENDING PHYSICIAN: Dr. Santiago REASON FOR ADMISSION: Altered mental status, pneumonia, acute cystitis, and possible CHF. REASON FOR CONSULTATION: ? EGD HPI: This is a 74 year old female with a past medical history significant for DM2, chronic atrial fibrillation on Eliquis, CKD 3A, hypertension, CAD, CHB s/p pacemaker, hyperlipidemia, and dementia who presents with shortness of breath/chest pain. Labs with CKD, normocytic anemia (Hgb 8.5 and previously 11.8 in 11/2023), CXR with possible pneumonia vs atelectasis. UA with UTI. She was admitted for management of altered mental status, pneumonia, acute cystitis, and possible CHF. Iron studies obtained which showed MIMA, thus GI consult requested for question of need for EGD. She is a poor historian. She denies abdominal pain, dysphagia, odynophagia, nausea or vomiting. States has intermittent heartburn and states use of AlkaSeltzer prn "not that often." Denies changes in bowel habits, constipation or diarrhea. States BMs are once daily and states use of fiber prn. States she feels she may have lost ~10#/2 months. Per home medications, takes ASA 81 mg daily and Eliquis 5 mg BID. States use of Aleve ~ 2x/month for back pain. No prior EGD or colonoscopy per patient. Per discussion with daughter/POA, Aric Block ([phone]), with whom patient lives with, states intermittent dysphagia with solids for the past ~ 3-4 months and will need to cough/vomit her foods up at time. States intermittent fecal incontinence but no overt GI bleeding. Endoscopic evaluation discussed and she is agreeable to proceed with EGD +/- colonoscopy. She is also agreeable to rescind code status for procedures. Last 10 Encounter Wt Readings: Date: Wt: 04/18/2025 64.6 kg (142 lb 6.7 oz) 04/18/2025 61.2 kg (135 lb) 11/19/2024 61.2 kg (135 lb) 09/15/2024 66.2 kg (146 lb) 01/07/2024 67.6 kg (149 lb) 11/01/2023 64 kg (141 lb) 10/27/2023 65.8 kg (145 lb) 10/24/2023 65.3 kg (144 lb) 10/02/2023 64 kg (141 lb) 10/02/2023 68.5 kg (151 lb) ALLERGIES: ALLERGIES Allergen Reactions Marco Inhibitors Cough Losartan Potassium Rash At higher doses (ok at low dose) PAST MEDICAL HISTORY: PAST MEDICAL HISTORY Diagnosis Date Acute rheumatic heart disease, unspecified Aortic valve insufficiency Atrial fibrillation (HCC) Diabetes mellitus type 2 in obese 03/2012 Heart disease, rheumatic History of PTCA 06/01/2023 LAD AND RCA Hyperlipemia Hypertension Hypothyroid Mitral valve regurgitation Osteopenia Pulmonary hypertension (HCC) Unspecified vitamin D deficiency 10/15/2008 Vit D level 10/09: 15.7, started weekly Vitamin D. PAST SURGICAL HISTORY: PAST SURGICAL HISTORY Procedure Laterality Date AV YESSICA ABLATION 11/19/2023 With Micra implant; Dr. Strong at [facility] CARDIOVERSION x2 CHOLECYSTECTOMY 10/01/1982 Cholecystectomy MICRA AV LEADLESS PACEMAKER 11/19/2023 With AVN catheter ablation; Dr. Strong at [facility] PERCUTANEOUS CORONARY INTERVENTION 06/01/2023 LAD AND RCA TOTAL ABDOMINAL HYSTERECT W/WO RMVL TUBE OVARY 10/01/1975 Hysterectomy, ALY MEDICATIONS: Prior to Admission Medications: traZODone (DESYREL) 50 mg tablet, Take 50 mg by mouth daily at bedtime., Disp: , Rfl: , Taking FARXIGA 10 mg tablet, Take 1 tablet by mouth once daily., Disp: 90 tablet, Rfl: 1, 04/17/2025 Morning aspirin 81 mg cap, Take 81 mg by mouth once daily., Disp: , Rfl: , 04/17/2025 Morning losartan (COZAAR) 25 mg tablet, Take 25 mg by mouth once daily., Disp: , Rfl: , 04/17/2025 Morning metoprolol tartrate, short acting, (LOPRESSOR) 50 mg tablet, Take 50 mg by mouth two times a day., Disp: , Rfl: , 04/17/2025 Evening acetylcysteine (NAC) 600 mg capsule, Take 600 mg by mouth two times a day., Disp: , Rfl: , 04/17/2025 Evening cholecalciferol (VITAMIN D3) 5,000 unit tab, Take 5,000 Units by mouth once daily., Disp: , Rfl: , 04/17/2025 Morning BASAGLAR KWIKPEN U-100 INSULIN 100 unit/mL (3 mL), INJECT 6 UNITS SUBCUTANEOUSLY TWICE DAILY, Disp: , Rfl: , 04/17/2025 Evening donepezil (ARICEPT) 10 mg tablet, Take 10 mg by mouth daily at bedtime., Disp: , Rfl: , Taking sertraline (ZOLOFT) 50 mg tablet, Take 75 mg by mouth once daily., Disp: , Rfl: , 04/17/2025 Morning pravastatin (PRAVACHOL) 20 mg tablet, Take 20 mg by mouth once daily., Disp: , Rfl: , 04/17/2025 Morning metFORMIN (GLUCOPHAGE) 500 mg tablet, Take 1,000 mg by mouth twice daily with meals., Disp: , Rfl: , 04/17/2025 Evening cyanocobalamin (VITAMIN B-12) 1,000 mcg tab, Take 1,000 mcg by mouth once daily., Disp: , Rfl: , 04/17/2025 Morning Levothyroxine 25 mcg cap, Take 25 (more content not included)... Normal [facility] Magnesium SerPl-mCncon 04-20 Magnesium [Mass/Vol] 2.1 mg/dL Normal 1.7-2.3 [facility] Comment on above: Order Comment: Speci men Type: BLOOD SPECIMEN Ordering Facility: [facility] Address: [address] [place] [address] Performed By: #### 2 4321-2, 88901-0 #### [facility] CLIA [id number] [address] [place] [address] OF [facility] THERAPY NTon 04-20-2025 THERAPY NT HNO ID: [id number] Author: RANDI WIN OT/Natalie Service: Occupational Therapy Author Type: Occupational Therapist Type: Therapy (PT/OT/Speech/Resp) Filed: 04/20/2025 14:47 Note Text: Summary: OT Missed Visit OCCUPATIONAL THERAPY MISSED VISIT SERVICE DATE: 04/20/2025 SERVICE TIME: 1446 ROOM: [place] [address] Patient not seen due to Patient Not Available. PT working with pt at bedside. Will re-attempt as schedule allows. SIGNATURE: TAVO Meraz PATIENT NAME: Amalia Corral DATE: April 20, 2025 TIME: 2:46 PM [facility] THERAPY NT HNO ID: [id number] Author: MARC REZA PT Service: Physical Therapy Author Type: Physical Therapist Type: Therapy (PT/OT/Speech/Resp) Filed: 04/20/2025 15:44 Note Text: Summary: PT evaluation Physical Therapy Evaluation Summary SERVICE DATE: 04/20/2025 SERVICE TIME: 1444 to 1517 ROOM: [place] [address] PT 6 Clicks Score: 20 DISCHARGE RECOMMENDATIONS Home PT Recommended Discharge Disposition Comments: Patient with exacerbation of pain, impaired balance, impaired safety awareness and limited activity tolerance, causing her to require assistance with mobility and placing her at a risk of falls. Home health PT is indicated to address her impairments and promote return to prior level of independence and mobility. Anticipated Discharge Needs: Physical Assist at Home, Supervision at Home Physical Assist at Home for: Cleaning, Laundry, Meals, Self Care, Shopping, Transportation, Stairs, Finances, Medication Management, Safety Supervision at Home due to: Decreased safety awareness, Impaired cognition Recommended Discharge Equipment: No equipment needs anticipated ASSESSMENT Response to Therapy Interventions: Good Participation in Activities, Improved Tolerance for Activity, On-Track to Achieve Discharge Goals, Notable Progression with Functional Activities/Skills Patient functioning below baseline, requiring CGA/SBA for mobility with a wheeled walker. Good carryover and safety demonstrated with mobility techniques within PT session, but occasionally abandoning walker to turn and sit. PRECAUTIONS Fall Risk, Bed/Chair Alarm, Impulsive with Activity CURRENT HOSPITAL COURSE SOB, s/p falls. non-displaced coccygeal fracture. Relevant Past Medical History: Osteopenia, DM, HLD, HTN, a-fib, hypothyroid, CKD HOME LIVING Patient Lives With: Spouse Assistance Available: 24-Hour, Other: See Comment Comments: per CM note, daughter is caregiver and patient also goes to adult daycare 3 days per week. Entry To Home: Stairs, With Rail Number Of Stairs Into Home: 3 Number Of Stairs To Bed/Bath: 0 Tub/Shower Type: walk-in shower with grab bars Laundry: on main level. Patient completes. Equipment Owned: Grab Bars- Shower, Rollator, Walker- Wheeled, Elevated Toilet Seat, Shower Chair, Hand Held Shower, Cane, Wheelchair- Manual (transport wc) PRIOR FUNCTIONAL LEVEL Within Functional Limits, Required Assistance, History of Falls Assistance Required With: Finances, Laundry, Cleaning, Meals, Medication Management, Stairs, Safety, Self Care, Shopping, Transportation Patient is a poor historian. Per daughter, patient requires sup/indep without AD at baseline, 2 falls in the last 6 months. Daughter provides near 24/7 supervision and assistance with ADL, IADL tasks, med management, shopping and transportation. SUBJECTIVE Patient resting in bed upon approach. Alert and oriented to self and location. Agreeable to PT evaluation THERAPY DIAGNOSIS Reduced mobility-other, Muscle Weakness (generalized) TREATMENT INTERVENTIONS Evaluation, Therapeutic Activity (06950), Gait Training (24988) Timed Code Treatment (minutes): 18 Skilled Treatment Time (minutes): 33 $ Evaluation-Low (41096) Billed Units: 1 unit Therapeutic Activity (69493) Treatment Minutes: 4 $ Therapeutic Activity (05065) Billed Units: 0 units Gait Training (23510) Treatment Minutes: 14 $ Gait Training (63128) Billed Units: 1 unit TRAINING AND EDUCATION PROVIDED Advanced Balance Activities, Assistive Device Use, Bed Mobility, Benefits of In-Hospital Mobility, Discharge Planning, Energy Conservation, Expected Functional Level, Falls Prevention, Gait Pattern, Reduction of Deviations, Home Safety, Role of Physical Therapy, Standing Balance, Transfers, Positioning THERAPEUTIC SKILLS USED Activity Dosing, Cuing Tactile, Cuing Verbal, Facilitation of Joint Range of Motion, Movement Facilitation, Physical Assist, Postural Alignment Correction, Assessment of Tolerance Including Vitals Response to Activity FUNCTIONAL STATUS Bed Mobility Supine To Sit: Supervision Sit to Supine: Additional Information OOB in chair at end of session Scooting: Stand By Assistance, Additional Information from seated position, anterior to EOB in preparation for transfers. Cues for hand placement. Transfers Sit To Stand: Contact Guard Assistance, Stand By Assistance, Additional Information from EOB and arm chair throughout session with cues for hand placement. Carryover 50-75% of the time with progression from CGA to SBA with repetition. Stand To Sit: Stand By Assistance, Additional Information cues for safe hand placement and eccentric control to chair. Bed to Chair Stand By Assistance, Additional Information Bed To Chair Transfer Type: Stepping Bed To Chair Transfer Eq (more content not included)... [facility] Bacteria Ur Culton Bacteria identified Cx Nom (U) CULTURE, URINE: No growth (<1,000 CFU/ml) Normal [facility] Comment on above: Performed By: #### 2 4321-2, #### [facility] CLIA [id number] [address] [place] [address] [place] Basic metabolic 2000 panelon 04-19-2025 Anion gap [Moles/Vol] 14 mmol/L Normal 8-15 [facility] Comment on above: Order Comment: Speci men Type: BLOOD SPECIMEN Ordering Facility: [facility] Address: [address] [place] [address] Performed By: #### 2 4321-2, #### [facility] CLIA [id number] [address] [place] [address] [place] Calcium [Mass/Vol] 8.9 mg/dL Normal 8.5-10.2 [facility] Comment on above: Order Comment: Speci men Type: BLOOD SPECIMEN Ordering Facility: [facility] Address: [address] [place] [address] Performed By: #### 2 4321-2, #### [facility] CLIA [id number] [address] [place] [address] [place] Chloride [Moles/Vol] 105 mmol/L Normal 98-107 [facility] Comment on above: Order Comment: Speci men Type: BLOOD SPECIMEN Ordering Facility: [facility] Address: [address] [place] [address] Performed By: #### 2 4321-2, #### [facility] CLIA [id number] [address] [place] [address] [place] CO2 [Moles/Vol] 21 mmol/L Low 22-30 [facility] Comment on above: Order Comment: Speci men Type: BLOOD SPECIMEN Ordering Facility: [facility] Address: [address] [place] [address] Performed By: #### 2 4321-2, #### [facility] CLIA [id number] [address] [place] [address] [place] Creatinine [Mass/Vol] 1.22 mg/dL High 0.58-0.96 [facility] Comment on above: Order Comment: Speci men Type: BLOOD SPECIMEN Ordering Facility: [facility] Address: [address] [place] [address] Performed By: #### 2 4321-2, #### [facility] CLIA [id number] [address] [place] [address] [place] eGFRcr SerPlBld CKD-EPI 2020 46 mL/min/1.73m??? Low >=60 [facility] Comment on above: Order Comment: Speci men Type: BLOOD SPECIMEN Ordering Facility: [facility] Address: [address] [place] [address] Result Comment: Haylee mated Glomerular Filtration Rate (eGFR) is calculated using the 2020 CKD-EPI creatinine equation. This equation utilizes serum creatinine, sex, and age as parameters. The creatinine assay has traceable calibration to isotope dilution-mass spectrometry. Refer to KDIGO guidelines for clinical interpretation. In patients with unstable renal function, e.g. those with acute kidney injury, the eGFR may not accurately reflect actual GFR. Performed By: #### 2 432-, #### [facility] CLIA [id number] [address] [place] [address] [place] Glucose [Mass/Vol] 86 mg/dL Normal 74-99 [facility] Comment on above: Order Comment: Colten bustamante Type: BLOOD SPECIMEN Ordering Facility: [facility] Address: [address] [place] [id number] Result Comment: The [place] Diabetes Association (ADA) provides guidance for cutoff values for fasting glucose and random glucose. The ADA defines fasting as no caloric intake for at least 8 hours. Fasting plasma glucose results between 100 to 125 mg/dL indicate increased risk for diabetes (prediabetes). Fasting plasma glucose results greater than or equal to 126 mg/dL meet the criteria for diagnosis of diabetes. In the absence of unequivocal hyperglycemia, results should be confirmed by repeat testing. In a patient with classic symptoms of hyperglycemia or hyperglycemic crisis, random plasma glucose results greater than or equal to 200 mg/dL meet the criteria for diagnosis of diabetes. Reference: Standards of Medical Care in Diabetes 2016, [place] Diabetes Association. Diabetes Care. 2016.39(Suppl 1). Performed By: #### 2 4320-11, #### [facility] CLIA [id number] [address] [place] [address] [place] Potassium [Moles/Vol] 3.8 mmol/L Normal 3.7-5.1 [facility] Comment on above: Order Comment: Colten bustamante Type: BLOOD SPECIMEN Ordering Facility: [facility] Address: [address] [place] [address] Performed By: #### 2 4320-, #### [facility] CLIA [id number] [address] [place] [address] [place] Sodium [Moles/Vol] 140 mmol/L Normal 136-144 [facility] Comment on above: Order Comment: Speci men Type: BLOOD SPECIMEN Ordering Facility: [facility] Address: [address] [place] [address] Performed By: #### 2 4321-2, 15284-5 #### [facility] CLIA [id number] [address] [place] Urea nitrogen [Mass/Vol] 28 mg/dL High 7-21 [facility] Comment on above: Order Comment: Speci men Type: BLOOD SPECIMEN Ordering Facility: [facility] Address: [address] [place] [address] Performed By: #### 2 4321-2, 31187-1 #### [facility] CLIA [id number] [address] [place] CBC panel Auto (Bld)on 04-19 Erythrocyte distribution width (RBC) [Ratio] 20.1 % High 11.5-15.0 [facility] Comment on above: Order Comment: Speci men Type: BLOOD SPECIMEN Ordering Facility: [facility] Address: [address] [place] [address] Performed By: #### 5 8410-2 #### [facility] CLIA [id number] [address] Hematocrit (Bld) [Volume fraction] 28.8 % Low 36.0-46.0 [facility] Comment on above: Order Comment: Speci men Type: BLOOD SPECIMEN Ordering Facility: [facility] Address: [address] [place] [address] Performed By: #### 5 8410-2 #### [facility] CLIA [id number] [address] [place] Hemoglobin (Bld) [Mass/Vol] 8.5 g/dL Low 11.5-15.5 [facility] Comment on above: Order Comment: Speci men Type: BLOOD SPECIMEN Ordering Facility: [facility] Address: [address] [place] [address] Performed By: #### 5 8410-2 #### [facility] CLIA [id number] [address] [place] MCH (RBC) [Entitic mass] 23.6 pg Low 26.0-34.0 [facility] Comment on above: Order Comment: Speci men Type: BLOOD SPECIMEN Ordering Facility: [facility] Address: [facility] [place] [address] Performed By: #### 5 8410-2 #### [facility] CLIA [id number] [address] [place] MCHC (RBC) [Mass/Vol] 29.5 g/dL Low 30.5-36.0 [facility] Comment on above: Order Comment: Speci men Type: BLOOD SPECIMEN Ordering Facility: [facility] Address: [address] [place] [address] Performed By: #### 5 8410-2 #### [facility] CLIA [id number] [address] MCV (RBC) [Entitic vol] 80.0 fL Normal 80.0-100.0 [facility] Comment on above: Order Comment: Speci men Type: BLOOD SPECIMEN Ordering Facility: [facility] Address: [address] [place] [address] Performed By: #### 5 8410-2 #### [facility] CLIA [id number] [address] Nucleated RBC (Bld) [#/Vol] 10*3/uL Normal <0.01 [facility] Comment on above: Order Comment: Speci men Type: BLOOD SPECIMEN Ordering Facility: [facility] Address: [address] [place] [address] Performed By: #### 5 8410-2 #### [facility] CLIA [id number] [address] [place] Platelet mean volume (Bld) [Entitic vol] 9.0 fL Normal 9.0-12.7 [facility] Comment on above: Order Comment: Speci men Type: BLOOD SPECIMEN Ordering Facility: [facility] Address: [address] [place] [address] Performed By: #### 5 8410-2 #### [facility] CLIA [id number] [address] Platelets (Bld) [#/Vol] 253 10*3/uL Normal 150-400 [facility] Comment on above: Order Comment: Speci men Type: BLOOD SPECIMEN Ordering Facility: [facility] Address: [address] [place] [address] Performed By: #### 5 8410-2 #### [facility] CLIA [id number] [address] RBC (Bld) [#/Vol] 3.60 10*6/uL Low 3.90-5.20 [facility] Comment on above: Order Comment: Speci men Type: BLOOD SPECIMEN Ordering Facility: [facility] Address: [address] [place] [address] Performed By: #### 5 8410-2 #### [facility] CLIA [id number] [address] WBC (Bld) [#/Vol] 6.43 10*3/uL Normal 3.70-11.00 [facility] Comment on above: Order Comment: Speci men Type: BLOOD SPECIMEN Ordering Facility: [facility] Address: [address] [place] [address] Performed By: #### 5 8410-2 #### [facility] CLIA [id number] [address] CONSULTon 04-19-2025 CONSULT HNO ID: [id number] Author: MCKENZIE SWANN MD Service: Cardiovascular Disease Author Type: Physician Type: Consults Filed: 04/19/2025 12:15 Note Text: [facility] [place] [facility] Department of Cardiovascular Medicine SECTION OF REGIONAL CARDIOLOGY Clinical Cardiology Consultation Note Name: Amalia Corral : 1950 Primary Physician: Rajat Patel MD Consulting Physician: Sal Santiago MD Primary Surgical Technician: Reason of Consultation: Acute decompensated heart failure SERVICE DATE: April 19, 2025 Assessment/ Plan: Permanent atrial fibrillation, [id number] score 7 (age, female, coronary disease, heart failure, hypertension, diabetes) Tachybradycardia syndrome status post status post AV node ablation and leadless pacemaker ([employer] MICRA) implantation Coronary artery disease status post RYAN (2.75 x 22 mm) to proximal LAD and RYAN (2.75 x 22 mm) distal RCA in 2022 (40% LM, 60-70% diffuse mid LAD, 60% ostial LCx, 50% proximal RCA, LHC 2023) Ischemic cardiomyopathy (EF 40%), NYHA class III, ACC stage C Moderate aortic regurgitation Severe pulmonary hypertension (RVSP 67 mmHg) Chronic kidney disease (baseline creatinine 1.2) Acute anemia Hypokalemia Amalia Corral is doing okay from cardiac standpoint. She is not in acute decompensated heart failure. Will switch furosemide back to 20 mg daily. She has acute anemia. Will stop aspirin. Continue apixaban 5 mg twice daily. Apixaban may need to be stopped if hemoglobin continues to trend down. Her iron is low. She might benefit from iron infusion. She will need evaluation for her anemia as well. Maintain K > 4 and Mg > 2. Continue metoprolol tartrate 50 mg twice daily, pravastatin 20 mg daily, dapagliflozin 10 mg daily. She will need to follow-up with cardiology following discharge. History: Amalia Corral is a 74 year old female with history of permanent atrial fibrillation, tachybradycardia syndrome status post status post AV node ablation and leadless pacemaker ([employer] MICRA) implantation, coronary artery disease status post RYAN (2.75 x 22 mm) to proximal LAD and RYAN (2.75 x 22 mm) distal RCA in 2022 (40% LM, 60-70% diffuse mid LAD, 60% ostial LCx, 50% proximal RCA, C 2023), ischemic cardiomyopathy (EF 40%), moderate aortic regurgitation, severe pulmonary hypertension (RVSP 67 mmHg), type 2 diabetes mellitus, hypertension, chronic kidney disease (baseline creatinine 1.2), dementia, presented on 04/18 with shortness of breath. She is being treated for pneumonia. Cardiology consulted for heart failure management. Amalia Corral presented with fatigue and shortness of breath. Shortness of breath has been progressing. The patient denies chest pain, palpitations, dizziness, syncope, or swelling lower extremities. Patient is non-smoker and drinks socially, denies recreational drug use. Lives with her Functional capacity: Limited Subjective PAST MEDICAL HISTORY Diagnosis Date Acute rheumatic heart disease, unspecified Aortic valve insufficiency Atrial fibrillation (HCC) Diabetes mellitus type 2 in obese 03/2012 Heart disease, rheumatic History of PTCA 06/01/2023 LAD AND RCA Hyperlipemia Hypertension Hypothyroid Mitral valve regurgitation Osteopenia Pulmonary hypertension (HCC) Unspecified vitamin D deficiency 10/15/2008 Vit D level 10/09: 15.7, started weekly Vitamin D. PAST SURGICAL HISTORY Procedure Laterality Date AV YESSICA ABLATION 11/19/2023 With Micra implant; Dr. Strong at [facility] CARDIOVERSION x2 CHOLECYSTECTOMY 10/01/1982 Cholecystectomy MICRA AV LEADLESS PACEMAKER 11/19/2023 With AVN catheter ablation; Dr. Strong at [facility] PERCUTANEOUS CORONARY INTERVENTION 06/01/2023 LAD AND RCA TOTAL ABDOMINAL HYSTERECT W/WO RMVL TUBE OVARY 10/01/1975 Hysterectomy, ALY FAMILY HISTORY Problem Relation Age of Onset None Father unknown health Stroke Mother POLYCYSTIC KIDNEY DISEASE,HEART DISEASE ,HYPERTENSION Hypertension Mother Heart Mother ? None Maternal Grandfather black lung other (polycystic kidney disease) Brother Breast Cancer Maternal Aunt Cancer Maternal Aunt leukemia Heart Brother AF None Sister Ischemic Heart Disease Brother [place] 66 Social History Tobacco Use Smoking status: Former Current packs/day: 0.00 Average packs/day: 1.5 packs/day for 15.0 years (22.5 ttl pk-yrs) Types: Cigarettes Start date: 10/01/1974 Quit date: 10/01/1989 Years since quittin.5 Smokeless tobacco: Never Substance Use Topics Alcohol use: Yes Comment: rarely Drug use: No Current Facility-Administered Medications Medication Dose Route Frequency dextrose 40 % 15 g 15 g ORAL PRN Or glucagon 1 mg injection 1 mg INTRAMUSCULAR PRN Or dextrose 10% iv bolus 12.5 g INTRAVENOUS PRN NaCl 0.9% iv flush bag 20 mL INTRAVENOUS PRN aluminum-ma (more content not included)... Normal [facility] Legionella Ag Ur Qlon 2024 Legionella sp Ag Ql (U) Negative Normal Negative [facility] Comment on above: Order Comment: Speci men Type: URINE SPECIMEN Ordering Facility: [facility] Address: [address] [place] [address] Result Comment: Jyotsna tavera urinary antigen test is used as an aid in diagnosis of infection with Legionella pneumophila serogroup 1. It may be detected from a few days to several months after onset of signs and symptoms despite antibiotic therapy or disease resolution. A negative result cannot exclude Legionellosis. Clinical correlation is required. Performed By: #### 3 2781-7 #### [facility] CLIA [id number] [address] [place] [address] [place] [address] [place] Magnesium SerPl-mCncon 04-19 Magnesium [Mass/Vol] 2.5 mg/dL High 1.7-2.3 [facility] Comment on above: Order Comment: Speci men Type: BLOOD SPECIMEN Ordering Facility: [facility] Address: [address] [place] [address] Performed By: #### 2 4321-2, 60110-8 #### [facility] CLIA [id number] [address] [place] [address] [place] STREPTOCOCCUS PNEUMONIAE ANT IGEN URINEon 04-19-2025 STREPTOCOCCUS PNEUMONIAE ANTIGEN URINE STREP PNEUMO AG RESULT: Negative for Streptococcus pneumoniae antigen. Presumptive negative for pneumococcal pneumonia, suggesting no current or recent pneumococcal infection. Infection due to S.pneumoniae cannot be ruled out since the antigen present in the sample may be below the detection limit of the test. Normal [facility] Comment on above: Performed By: #### 2 276-4, 66552-4 #### [facility] CLIA [id number] [address] [place] [address] [place] ALLIED HEALTHon 04-18-2025 ALLIED HEALTH HNO ID: [id number] Author: KAR DICKINSON RT(R) Service: Radiology Author Type: Technologist Type: Allied Health Filed: 04/18/2025 15:12 Note Text: Radiology Service Progress Note PATIENT NAME: Amalia Corral DATE OF SERVICE: April 18, 2025 TIME: 3:11 PM PATIENT IDENTITY VERIFICATION COMPLETED USING TWO (2) IDENTIFIERS: Name and Date of confirmed by patient verbally. FALL SCREENING: Has the patient had 2 falls in the last year or 1 fall with injury or currently using an Ambulatory Assistive Device (Walker, Cane, Wheelchair, Crutches, etc.)? Emergency Room Patient: Screened in ED PATIENT GENDER DATA: Assigned female at . status: : No status: NO. PATIENT RELEVANT IMPLANT DATA REVIEWED: Not Applicable PATIENT PRESENTS WITH AN IMPLANTABLE OR ATTACHED DEVELOPMENTAL MATHEMATICS INSTRUCTOR: No RADIOLOGY DEPARTMENT: CT; Exam(s) Completed: Abdomen/Pelvis PERIPHERAL IV DATA: Not applicable SIGNED BY: RT Lam(R) April 18, 2025 3:11 PM [facility] ALLIED HEALTH HNO ID: [id number] Author: KAR DICKINSON RT(Litzy) Service: Radiology Author Type: Technologist Type: Allied Health Filed: 04/18/2025 13:03 Note Text: Radiology Service Progress Note PATIENT NAME: Amalia Corral DATE OF SERVICE: April 18, 2025 TIME: 1:02 PM PATIENT IDENTITY VERIFICATION COMPLETED USING TWO (2) IDENTIFIERS: Name and Date of confirmed by patient verbally. FALL SCREENING: Has the patient had 2 falls in the last year or 1 fall with injury or currently using an Ambulatory Assistive Device (Walker, Cane, Wheelchair, Crutches, etc.)? Emergency Room Patient: Screened in ED PATIENT GENDER DATA: Assigned female at . status: : No status: NO. PATIENT RELEVANT IMPLANT DATA REVIEWED: Not Applicable PATIENT PRESENTS WITH AN IMPLANTABLE OR ATTACHED DEVELOPMENTAL MATHEMATICS INSTRUCTOR: No RADIOLOGY DEPARTMENT: CT; Exam(s) Completed: Brain and Spine and General X-ray: Exam(s) Completed: Chest X-Ray Spine X-Ray(s): Sacrum/Coccyx Pelvis X-Ray: Pelvis General AP PERIPHERAL IV DATA: Not applicable SIGNED BY: RT Lam(R) April 18, 2025 1:02 PM [facility] Bacteria Ur Culton Bacteria identified Cx Nom (U) ORGANISM ID: 1 50,000-<100,000 CFU/ml Escherichia coli ORGANISM ID: 1 (ESCHERICHIA COLI) --------- ANTIBIOTIC INTERPRETATION LETICIA STATUS REFERENCE RANGE --------- Ampicillin S <=4 F Susceptible <=8 , Intermediate >8 , Resistant >16 Cefazolin S 2 F Susceptible 0-16 , Intermediate <0 or >16 , Resistant >16 For uncomplicated urinary tract infections, cefazolin results can be used to predict susceptibility or resistance to cephalexin. Ceftriaxone S <=1 F Susceptible <=1 , Intermediate >1 , Resistant >=4 Cefepime S <=1 F Susceptible <=2 , Susceptible-Dose Dependent >2 , Resistant >=16 Ertapenem S <=0.25 F Susceptible <=0.5 , Intermediate >.5 , Resistant >1 Meropenem S <=0.5 F Susceptible <=1 , Intermediate >1 , Resistant >2 Aztreonam S <=2 F Susceptible <=4 , Intermediate >4 , Resistant >=16 Ampicillin/Sulbact S 2 F Piperacillin/Tazobac S <=2 F Gentamicin S <=2 F Susceptible <=2 , Intermediate >2 , Resistant >4 Trimeth sulfameth S <=0.5 F Ciprofloxacin R >2 F Susceptible <0.5 , Intermediate >=.5 , Resistant >=1 Nitrofurantoin S <=16 F Susceptible <=32 , Intermediate >32 , Resistant >64 Abnormal [facility] Comment on above: Performed By: #### 6 30-4 #### [facility] CLIA [id number] [address] [place] [address] [place] Basic metabolic 2000 panelon 04-18-2025 Anion gap [Moles/Vol] 19 mmol/L High 8-15 [facility] Comment on above: Order Comment: Speci men Type: BLOOD SPECIMEN Ordering Facility: [facility] Address: [address] [place] [address] Performed By: #### 2 4321-2, 99113-4 #### [facility] CLIA [id number] [address] [place] [address] [place] Calcium [Mass/Vol] 9.9 mg/dL Normal 8.5-10.2 [facility] Comment on above: Order Comment: Speci men Type: BLOOD SPECIMEN Ordering Facility: [facility] Address: [address] [place] [address] Performed By: #### 2 4321-2, 33588-5 #### [facility] CLIA [id number] [address] [place] [address] [place] Chloride [Moles/Vol] 100 mmol/L Normal 98-107 [facility] Comment on above: Order Comment: Speci men Type: BLOOD SPECIMEN Ordering Facility: [facility] Address: [address] [place] [address] Performed By: #### 2 4321-2, 11028-8 #### [facility] CLIA [id number] [address] [place] [address] [place] CO2 [Moles/Vol] 18 mmol/L Low 22-30 [facility] Comment on above: Order Comment: Speci men Type: BLOOD SPECIMEN Ordering Facility: [facility] Address: [address] [place] [address] Performed By: #### 2 4321-2, 18344-9 #### [facility] CLIA [id number] [address] [place] [address] [place] Creatinine [Mass/Vol] 1.26 mg/dL High 0.58-0.96 [facility] Comment on above: Order Comment: Speci men Type: BLOOD SPECIMEN Ordering Facility: [facility] Address: [address] [place] [address] Performed By: #### 2 4321-2, 39705-8 #### [facility] CLIA [id number] [address] [place] [address] [place] eGFRcr SerPlBld CKD-EPI 2020 44 mL/min/1.73m??? Low >=60 [facility] Comment on above: Order Comment: Colten bustamante Type: BLOOD SPECIMEN Ordering Facility: [facility] Address: [address] [place] [address] Result Comment: Haylee mated Glomerular Filtration Rate (eGFR) is calculated using the 2020 CKD-EPI creatinine equation. This equation utilizes serum creatinine, sex, and age as parameters. The creatinine assay has traceable calibration to isotope dilution-mass spectrometry. Refer to KDIGO guidelines for clinical interpretation. In patients with unstable renal function, e.g. those with acute kidney injury, the eGFR may not accurately reflect actual GFR. Performed By: #### 2 4321-2, 56627-8 #### [facility] CLIA [id number] [address] [place] [address] [place] Glucose [Mass/Vol] 146 mg/dL High 74-99 [facility] Comment on above: Order Comment: Colten bustamante Type: BLOOD SPECIMEN Ordering Facility: [facility] Address: [address] [place] [address] Result Comment: The [place] Diabetes Association (ADA) provides guidance for cutoff values for fasting glucose and random glucose. The ADA defines fasting as no caloric intake for at least 8 hours. Fasting plasma glucose results between 100 to 125 mg/dL indicate increased risk for diabetes (prediabetes). Fasting plasma glucose results greater than or equal to 126 mg/dL meet the criteria for diagnosis of diabetes. In the absence of unequivocal hyperglycemia, results should be confirmed by repeat testing. In a patient with classic symptoms of hyperglycemia or hyperglycemic crisis, random plasma glucose results greater than or equal to 200 mg/dL meet the criteria for diagnosis of diabetes. Reference: Standards of Medical Care in Diabetes 2016, [place] Diabetes Association. Diabetes Care. 2016.39(Suppl 1). Performed By: #### 2 4321-2, 18221-3 #### [facility] CLIA [id number] [address] [place] [address] [place] Potassium [Moles/Vol] 4.3 mmol/L Normal 3.7-5.1 [facility] Comment on above: Order Comment: Colten bustamante Type: BLOOD SPECIMEN Ordering Facility: [facility] Address: [address] [place] [address] Performed By: #### 2 4321-2, 42978-8 #### [facility] CLIA [id number] [address] [place] [address] [place] Sodium [Moles/Vol] 137 mmol/L Normal 136-144 [facility] Comment on above: Order Comment: Speci men Type: BLOOD SPECIMEN Ordering Facility: [facility] Address: [address] [place] [address] Performed By: #### 2 4321-2, 49403-2 #### [facility] CLIA [id number] [address] [place] [address] [place] Urea nitrogen [Mass/Vol] 31 mg/dL High 7-21 [facility] Comment on above: Order Comment: Speci men Type: BLOOD SPECIMEN Ordering Facility: [facility] Address: [address] [place] [address] Performed By: #### 2 4321-2, 45143-7 #### [facility] CLIA [id number] [address] [place] [address] [place] CBC W Auto Differential pane l (Bld)on 04-18-2025 Basophils (Bld) [#/Vol] 10*3/uL Normal <0.11 [facility] Comment on above: Order Comment: Speci men Type: BLOOD SPECIMEN Ordering Facility: [facility] Address: [address] [place] [address] Performed By: #### 5 7021-8 #### [facility] CLIA [id number] [address] [place] Basophils/100 WBC (Bld) 0.2 % Normal [facility] Comment on above: Order Comment: Speci men Type: BLOOD SPECIMEN Ordering Facility: [facility] Address: [address] [place] [address] Performed By: #### 5 7021-8 #### [facility] CLIA [id number] [address] Differential cell count method Nom (Bld) Auto Normal [facility] Comment on above: Order Comment: Speci men Type: BLOOD SPECIMEN Ordering Facility: [facility] Address: [address] [place] [address] Performed By: #### 5 7021-8 #### [facility] CLIA [id number] [address] [place] [address] [facility] [place] Eosinophils (Bld) [#/Vol] 0.05 10*3/uL Normal <0.46 [facility] Comment on above: Order Comment: Speci men Type: BLOOD SPECIMEN Ordering Facility: [facility] Address: [address] [place] [address] Performed By: #### 5 7021-8 #### [facility] CLIA [id number] [address] [place] [id number] [facility] Eosinophils/100 WBC (Bld) 0.6 % Normal [facility] Comment on above: Order Comment: Speci men Type: BLOOD SPECIMEN Ordering Facility: [facility] Address: [address] [place] [address] Performed By: #### 5 7021-8 #### [facility] CLIA [id number] [address] [place] Erythrocyte distribution width (RBC) [Ratio] 20.3 % High 11.5-15.0 [facility] Comment on above: Order Comment: Speci men Type: BLOOD SPECIMEN Ordering Facility: [facility] Address: [address] [place] [address] Performed By: #### 5 7021-8 #### [facility] CLIA [id number] [address] [place] [address] [facility] [place] Hematocrit (Bld) [Volume fraction] 33.1 % Low 36.0-46.0 [facility] Comment on above: Order Comment: Speci men Type: BLOOD SPECIMEN Ordering Facility: [facility] Address: [address] [place] [address] Performed By: #### 5 7021-8 #### [facility] CLIA [id number] [address] [place] [address] [place] Hemoglobin (Bld) [Mass/Vol] 9.9 g/dL Low 11.5-15.5 [facility] Comment on above: Order Comment: Speci men Type: BLOOD SPECIMEN Ordering Facility: [facility] Address: [address] [place] [address] Performed By: #### 5 7021-8 #### [facility] CLIA [id number] [address] [place] [address] [place] Immature granulocytes (Bld) [#/Vol] 10*3/uL Normal <0.10 [facility] Comment on above: Order Comment: Speci men Type: BLOOD SPECIMEN Ordering Facility: [facility] Address: [address] [place] [address] Performed By: #### 5 7021-8 #### [facility] CLIA [id number] [address] [place] [address] [place] Immature granulocytes/100 WBC (Bld) 0.2 % Normal [facility] Comment on above: Order Comment: Speci men Type: BLOOD SPECIMEN Ordering Facility: [facility] Address: [address] [place] [address] Performed By: #### 5 7021-8 #### [facility] CLIA [id number] [address] [place] [address] [place] Lymphocytes (Bld) [#/Vol] 0.37 10*3/uL Low 1.00-4.00 [facility] Comment on above: Order Comment: Speci men Type: BLOOD SPECIMEN Ordering Facility: [facility] Address: [address] [place] [address] Performed By: #### 5 7021-8 #### [facility] CLIA [id number] [address] [place] [id number] [place] Lymphocytes/100 WBC (Bld) 4.1 % Normal [facility] Comment on above: Order Comment: Speci men Type: BLOOD SPECIMEN Ordering Facility: [facility] Address: [address] [place] [address] Performed By: #### 5 7021-8 #### [facility] CLIA [id number] [address] [place] [address] [place] [facility] MCH (RBC) [Entitic mass] 24.2 pg Low 26.0-34.0 [facility] Comment on above: Order Comment: Speci men Type: BLOOD SPECIMEN Ordering Facility: [facility] Address: [address] [place] [address] Performed By: #### 5 7021-8 #### [facility] CLIA [id number] [address] [place] [address] [place] MCHC (RBC) [Mass/Vol] 29.9 g/dL Low 30.5-36.0 [facility] Comment on above: Order Comment: Speci men Type: BLOOD SPECIMEN Ordering Facility: [facility] Address: [address] [place] [address] Performed By: #### 5 7021-8 #### [facility] CLIA [id number] [address] [place] [address] [place] MCV (RBC) [Entitic vol] 80.9 fL Normal 80.0-100.0 [facility] Comment on above: Order Comment: Speci men Type: BLOOD SPECIMEN Ordering Facility: [facility] Address: [address] [place] [address] Performed By: #### 5 7021-8 #### [facility] CLIA [id number] [address] [place] [address] [place] Monocytes (Bld) [#/Vol] 0.88 10*3/uL High <0.87 [facility] Comment on above: Order Comment: Speci men Type: BLOOD SPECIMEN Ordering Facility: [facility] Address: [address] [place] [address] Performed By: #### 5 7021-8 #### [facility] CLIA [id number] [address] [place] [address] [facility] [place] Monocytes/100 WBC (Bld) 9.8 % Normal [facility] Comment on above: Order Comment: Speci men Type: BLOOD SPECIMEN Ordering Facility: [facility] Address: [address] [place] [address] Performed By: #### 5 7021-8 #### [facility] CLIA [id number] [address] [place] [address] [place] Neutrophils (Bld) [#/Vol] 7.63 10*3/uL High 1.45-7.50 [facility] Comment on above: Order Comment: Speci men Type: BLOOD SPECIMEN Ordering Facility: [facility] Address: [address] [place] [address] Performed By: #### 5 7021-8 #### [facility] CLIA [id number] [address] [place] [address] [place] Neutrophils/100 WBC (Bld) 85.1 % Normal [facility] Comment on above: Order Comment: Speci men Type: BLOOD SPECIMEN Ordering Facility: [facility] Address: [address] [place] [address] Performed By: #### 5 7021-8 #### [facility] CLIA [id number] [address] [place] [address] [place] Nucleated RBC (Bld) [#/Vol] Normal [facility] Comment on above: Order Comment: Speci men Type: BLOOD SPECIMEN Ordering Facility: [facility] Address: [address] [place] [address] Performed By: #### 5 7021-8 #### [facility] CLIA [id number] [address] [place] [address] [place] Nucleated RBC/100 WBC (Bld) [Ratio] Normal [facility] Comment on above: Order Comment: Speci men Type: BLOOD SPECIMEN Ordering Facility: [facility] Address: [address] [place] [address] Performed By: #### 5 7021-8 #### [facility] CLIA [id number] [address] [place] [address] [place] Platelet mean volume (Bld) [Entitic vol] 9.1 fL Normal 9.0-12.7 [facility] Comment on above: Order Comment: Speci men Type: BLOOD SPECIMEN Ordering Facility: [facility] Address: [address] [place] [address] Performed By: #### 5 7021-8 #### [facility] CLIA [id number] [address] [place] [address] [place] Platelets (Bld) [#/Vol] 275 10*3/uL Normal 150-400 [facility] Comment on above: Order Comment: Speci men Type: BLOOD SPECIMEN Ordering Facility: [facility] Address: [address] [place] [address] Performed By: #### 5 7021-8 #### [facility] CLIA [id number] [address] [place] [address] [place] RBC (Bld) [#/Vol] 4.09 10*6/uL Normal 3.90-5.20 [facility] Comment on above: Order Comment: Speci men Type: BLOOD SPECIMEN Ordering Facility: [facility] Address: [address] [place] [address] Performed By: #### 5 7021-8 #### [facility] CLIA [id number] [address] [place] [address] [place] WBC (Bld) [#/Vol] 8.97 10*3/uL Normal 3.70-11.00 [facility] Comment on above: Order Comment: Speci men Type: BLOOD SPECIMEN Ordering Facility: [facility] Address: [address] [place] [address] Performed By: #### 5 7021-8 #### [facility] CLIA [id number] [address] [place] [address] ABD/PEL WO IVCONon 2024 CT ABD/PEL WO IVCON * * *Final Report* * * DATE OF EXAM: Apr 18 2025 3:10PM [facility] 0531 - CT ABD/PEL WO IVCON / PROCEDURE REASON: Hematuria, microscopic, no increased risk for urinary tract malignancy * * * * Physician Interpretation * * * * EXAMINATION: CT ABDOMEN AND PELVIS WITHOUT IV CONTRAST CLINICAL HISTORY: Microscopic hematuria. Recent fall. TECHNIQUE: Non-IV contrast imaging of the abdomen and pelvis was performed using standard technique, scanning from just above the dome of the diaphragm to the symphysis pubis. Unenhanced imaging is limited for the evaluation of some intra-abdominal and pelvic pathology. MQ: [id number] Contrast: IV: None CT Radiation dose: Integrated Dose-length product (DLP) for this visit = 260.37 mGy*cm. CT Dose Reduction Employed: Automated exposure control(AEC) and iterative recon COMPARISON: None. RESULT: Abdomen / Pelvis: Liver: 1.3 cm probable cyst dome of the liver on 2:17. Biliary: Status post cholecystectomy. No bile duct dilatation. Spleen: No splenomegaly. Pancreas: Unremarkable. Adrenals: No mass. Kidneys: Right: 3.2 cm suspected cyst arising off the lateral midpole. No renal or ureteral stone. No hydronephrosis. Left: No renal or ureteral stone. No hydronephrosis. 3.5 cm cyst arising off lower pole. GI Tract: No bowel dilation. Diverticulosis of the descending and sigmoid colon without radiographic evidence of acute diverticulitis. The appendix is not clearly identified. Lymph Nodes: No lymphadenopathy. Mesentery/peritoneum: No ascites. Retroperitoneum: No mass. Vasculature: Abdominal aorta is not aneurysmally dilated. Pelvis: No mass or ascites. Status post hysterectomy. Bones/Soft Tissues: Multilevel degenerative facet changes. Lower thorax: Unremarkable. Localizer images: No additional findings. IMPRESSION: 1. No renal or ureteral stone. No hydronephrosis. 2. Bilateral renal cysts. 3. Diverticulosis of the descending and sigmoid colon without radiographic evidence of acute diverticulitis. Hay Stacker Operator: PSCB Transcribe Date/Time: Apr 18 2025 4:01P Dictated by : CHER BERNAL MD This examination was interpreted and the report reviewed and electronically signed by: CHER BERNAL MD on Apr 18 2025 4:09PM EST [id number] [facility] CT BRAIN WO IVCONon 04-18-20 CT BRAIN WO IVCON * * *Final Report* * * DATE OF EXAM: Apr 18 2025 12:56PM [facility] 0504 - CT BRAIN WO IVCON / PROCEDURE REASON: Head trauma, minor (Age >= 65y) * * * * Physician Interpretation * * * * EXAMINATION: CT BRAIN WO IVCON, CT CERVICAL SPINE WO IVCON CLINICAL HISTORY: Multiple recent fall. Pain. CT SCAN OF THE BRAIN WITHOUT IV CONTRAST: TECHNIQUE: Serial axial images without IV contrast were obtained from the vertex to the foramen magnum. MQ: CTBWO_3 CT Radiation dose: Integrated Dose-Length Product (DLP) for this visit = 707.24 (accession [id number]), 208.83 (accession [id number]) mGy*cm CT Dose Reduction Employed: No dose reduction techniques were required COMPARISON: None. RESULT: Localizer images: No additional findings. Post-operative change: None. Acute change: No evidence of an acute infarct or other acute parenchymal process. Hemorrhage: No evidence of acute intracranial hemorrhage. Mass Lesion / Mass Effect: There is no evidence of an intracranial mass or extraaxial fluid collection. No significant mass effect. Chronic change: Fairly extensive white matter hypodensities in the periventricular and subcortical white matter both cerebral hemispheres. [place] to represent areas of chronic ischemic change secondary to small vessel occlusive disease. Parenchyma: Mild generalized parenchymal volume loss. Ventricles: The ventricles are within normal limits of size and configuration for age. Paranasal sinuses: Clear. Calvarium: Intact. CT SCAN CERVICAL SPINE: Technique: Without intravenous contrast, a series of axial images were taken from skull base to upper thoracic spine. Findings: Fracture:None. Alignment:Straightening of the normal cervical lordosis. Degenerative changes:Severe degenerative disc changes noted at C3-4, C4-5, C5-6, and C6-7. Generalized bulge of the disc with posterior osteophyte formation noted particularly at C3-4, C4-5, and C5-6 with greatest degree of changes at C5-C6 leading to moderate degree of central canal stenosis and moderate neural foraminal stenosis particularly on the left side. Multilevel facet arthropathy noted. Paraspinous soft tissues:No significant additional findings. IMPRESSION: 1. No acute intracranial findings radiographically. 2. No acute radiographic findings involving cervical spine. 3. Multilevel degenerative disc disease and facet arthropathy. Hay Stacker Operator: DEENA Transcribe Date/Time: Apr 18 2025 1:53P Dictated by : CHER BERNAL MD This examination was interpreted and the report reviewed and electronically signed by: CHER BERNAL MD on Apr 18 2025 2:00PM EST [id number] [facility] CT CERVICAL SPINE WO IVCONon 04-18-2025 CT CERVICAL SPINE WO IVCON * * *Final Report* * * DATE OF EXAM: Apr 18 2025 12:56PM [facility] 0505 - CT CERVICAL SPINE WO IVCON / PROCEDURE REASON: Neck trauma (Age >= 65y) * * * * Physician Interpretation * * * * EXAMINATION: CT BRAIN WO IVCON, CT CERVICAL SPINE WO IVCON CLINICAL HISTORY: Multiple recent fall. Pain. CT SCAN OF THE BRAIN WITHOUT IV CONTRAST: TECHNIQUE: Serial axial images without IV contrast were obtained from the vertex to the foramen magnum. MQ: CTBWO_3 CT Radiation dose: Integrated Dose-Length Product (DLP) for this visit = 707.24 (accession [id number]), 208.83 (accession [id number]) mGy*cm CT Dose Reduction Employed: No dose reduction techniques were required COMPARISON: None. RESULT: Localizer images: No additional findings. Post-operative change: None. Acute change: No evidence of an acute infarct or other acute parenchymal process. Hemorrhage: No evidence of acute intracranial hemorrhage. Mass Lesion / Mass Effect: There is no evidence of an intracranial mass or extraaxial fluid collection. No significant mass effect. Chronic change: Fairly extensive white matter hypodensities in the periventricular and subcortical white matter both cerebral hemispheres. [place] to represent areas of chronic ischemic change secondary to small vessel occlusive disease. Parenchyma: Mild generalized parenchymal volume loss. Ventricles: The ventricles are within normal limits of size and configuration for age. Paranasal sinuses: Clear. Calvarium: Intact. CT SCAN CERVICAL SPINE: Technique: Without intravenous contrast, a series of axial images were taken from skull base to upper thoracic spine. Findings: Fracture:None. Alignment:Straightening of the normal cervical lordosis. Degenerative changes:Severe degenerative disc changes noted at C3-4, C4-5, C5-6, and C6-7. Generalized bulge of the disc with posterior osteophyte formation noted particularly at C3-4, C4-5, and C5-6 with greatest degree of changes at C5-C6 leading to moderate degree of central canal stenosis and moderate neural foraminal stenosis particularly on the left side. Multilevel facet arthropathy noted. Paraspinous soft tissues:No significant additional findings. IMPRESSION: 1. No acute intracranial findings radiographically. 2. No acute radiographic findings involving cervical spine. 3. Multilevel degenerative disc disease and facet arthropathy. Hay Stacker Operator: DEENA Transcribe Date/Time: Apr 18 2025 1:53P Dictated by : CHER BERNAL MD This examination was interpreted and the report reviewed and electronically signed by: CHER BERNAL MD on Apr 18 2025 2:00PM EST [id number] [facility] CT LUMBAR SPINE WO IVCONon 0 04-18-2025 CT LUMBAR SPINE WO IVCON * * *Final Report* * * DATE OF EXAM: Apr 18 2025 12:56PM [facility] 0508 - CT LUMBAR SPINE WO IVCON / PROCEDURE REASON: Back trauma, no prior imaging (Age >= 16y) * * * * Physician Interpretation * * * * EXAMINATION: CT LUMBAR SPINE WO IVCON CLINICAL HISTORY: Lumbar back pain. Clinical history of mechanical fall. TECHNIQUE: Spiral, high resolution axial unenhanced images were obtained from the thoracolumbar junction to the sacrum with sagittal and coronal planar reconstructions. MQ: CTLSPWO_3 CT Radiation dose: Integrated Dose-Length Product (DLP) for this visit = 594.54 mGy*cm. CT Dose Reduction Employed: Automated exposure control(AEC) and iterative recon COMPARISON: None. RESULT: Counting reference: Lumbosacral junction. For the purposes of this report, L4-5 is considered the level of the iliac crest and assume there are 5 lumbar-type vertebrae. Anatomic variant: None. Installer Interior Assemblies (topogram) images: Electronic device left lower chest. Alignment: Mild levocurvature. Minimal anterolisthesis at the L5-S1 level. Bone marrow / fracture: No evidence of a lytic or blastic process in the visualized spine. No evidence of acute or chronic fracture in the lumbar region. Buckling of cortex anterior first coccygeal segment. Lumbar paraspinal soft tissues: The paraspinal soft tissues planes are maintained. Canal and foramina: Severe canal narrowing at L1-2 through L4-5 levels. Bilateral multilevel moderate and severe foraminal narrowing. Degenerative changes: Moderate disc space narrowing at the L1-2 and L2-3 levels. Multilevel endplate osteophyte, most pronounced at the L1-2 and L2-3 levels. Multilevel vacuum phenomena. Multilevel facet osteoarthrosis. Sacrum and iliac wings: The visualized sacrum and iliac wings are within normal limits. Other: Small hiatal hernia. Colonic diverticulosis. Cholecystectomy clips. IMPRESSION: No acute fracture in the lumbar region. Cortical buckling anterior first coccygeal segment possibly related to nondisplaced fracture. Anatomic Lumbar Variant: Hay Stacker Operator: PSCB Transcribe Date/Time: Apr 18 2025 2:00P Dictated by : LUIS STEWART MD This examination was interpreted and the report reviewed and electronically signed by: LUIS STEWART MD on Apr 18 2025 2:20PM EST [id number] [facility] CT THORACIC SPINE WO IVCONon 04-18-2025 CT THORACIC SPINE WO IVCON * * *Final Report* * * DATE OF EXAM: Apr 18 2025 12:56PM [facility] 0514 - CT THORACIC SPINE WO IVCON / PROCEDURE REASON: Back trauma, no prior imaging (Age >= 16y) * * * * Physician Interpretation * * * * EXAMINATION: CT THORACIC SPINE WO IVCON CLINICAL HISTORY: Back pain. Clinical history of mechanical fall. TECHNIQUE: Spiral, high resolution unenhanced axial images were obtained from the cervicothoracic junction to the thoracolumbar junction with sagittal and coronal planar reconstructions. MQ: CTTSWO_3 CT Radiation dose: Integrated Dose-Length Product (DLP) for this visit = 772.36 mGy*cm. CT Dose Reduction Employed: Automated exposure control(AEC) and iterative recon COMPARISON: CT chest 10/27/2023 and chest radiographs 10/24/2023. RESULT: Counting reference: Cervicothoracic and lumbosacral junctions. Assume first thoracic rib is the T1 level. For the purposes of this report, 12 rib-bearing thoracic vertebra. [employer]ies (topogram) images: No additional findings. Alignment: Mild serpentine curvature. Bone marrow / fracture: No evidence of a lytic or blastic process in the visualized spine. No evidence of acute or chronic fracture. Thoracic paraspinal soft tissues: The paraspinal soft tissues planes are maintained. Canal and foramina: The bony thoracic canal and foramina are patent. Degenerative changes: Multilevel disc space narrowing and endplate osteophyte. Multilevel facet osteoarthrosis. Other: Cardiomegaly. Coronary artery calcification. Small hiatal hernia. Cholecystectomy clips. IMPRESSION: No acute osseous abnormality of the thoracic spine. Anatomic Thoracic/Lumbar Variant: Hay Stacker Operator: PSCB Transcribe Date/Time: Apr 18 2025 1:59P Dictated by : LUIS STEWART MD This examination was interpreted and the report reviewed and electronically signed by: LUIS STEWART MD on Apr 18 2025 2:20PM EST [id number] [facility] ECG COMPLETEon 04-18-2025 ECG COMPLETE Ventricular Rate : 7 0 BPM Atrial Rate : 70 BPM QRS Duration : 162 ms Q-T Interval : 440 ms QTC Calculation(Bazett) : 475 ms Calculated R [place] : 268 degrees Calculated T [place] : 97 degrees Ventricular-paced rhythm ABNORMAL ECG NO PREVIOUS ECGS AVAILABLE Confirmed by MD MARTINEZ VINAYAK ([id number]) on 04/21/2025 12:25:34 PM NAME : AMALIA CORRAL PID : [id number] : 1950 Gender : Female Race : ORD : [id number] Procedure Date : Apr 18 2025 11:12:17 Edit Date : Apr 21 2025 12:25:38 Diagnosis: Ventricular-paced rhythm ABNORMAL ECG NO PREVIOUS ECGS AVAILABLE Confirmed by MD MARTINEZ VINAYAK ([id number]) on 04/21/2025 12:25:34 PM Test Reason : Chest Pain Location : 191 : [facility] ED Overread By : MD MARTINEZ VINAYAK Edited By : MD MARTINEZ VINAYAK Referred By : JONATHAN, Acquired by : RAJAT ISAAC [facility] ED NOTEon 04-18-2025 ED NOTE HNO ID: [id number] Author: JORGE ALBERTO LYMAN RN Service: Emergency Medicine Author Type: Registered Nurse Type: ED Notes Filed: 04/18/2025 18:24 Note Text: Report given to transport [facility] ED NOTE HNO ID: [id number] Author: JORGE ALBERTO LYMAN RN Service: Emergency Medicine Author Type: Registered Nurse Type: ED Notes Filed: 04/18/2025 18:04 Note Text: Doctor Jonathan at bedside to update pt and daughter [facility] ED NOTE HNO ID: [id number] Author: JORGE ALBERTO LYMAN RN Service: Emergency Medicine Author Type: Registered Nurse Type: ED Notes Filed: 04/18/2025 17:35 Note Text: [place] 307-1 Report [phone] [facility] ETA 1830 [facility] ED NOTE HNO ID: [id number] Author: JORGE ALBERTO LYMAN RN Service: Emergency Medicine Author Type: Registered Nurse Type: ED Notes Filed: 04/18/2025 14:23 Note Text: Pt given crackers with meds. [facility] ED NOTE HNO ID: [id number] Author: JORGE ALBERTO LYMAN RN Service: Emergency Medicine Author Type: Registered Nurse Type: ED Notes Filed: 04/18/2025 11:29 Note Text: Daughter at bedside with pt, sts pt has dementia but can tell pt is more confused than she normally is. [facility] ED NOTE HNO ID: [id number] Author: JORGE ALBERTO LYMAN RN Service: Emergency Medicine Author Type: Registered Nurse Type: ED Notes Filed: 04/18/2025 11:16 Note Text: Brought in by daughter for eval, daughter has multiple concerns, pt fell last week, has been more confused over the past week, today while shopping in [place], pt c/o headache CP and Shortness of Breath. Daughter refused to call 911 when offered by grocery store employees and drove to [place] ED for eval. [facility] ED PROV NOTEon 04-18-2025 ED PROV NOTE HNO ID: [id number] Author: RANDI DYE DO Service: Emergency Medicine Author Type: Physician Type: ED Provider Notes Filed: 04/18/2025 16:47 Note Text: ED Provider Note Patient Name: Amalia Corral : 1950 SERVICE DATE: 04/18/25 History Patient presents with: Shortness of Breath Chest Pain Back Pain Fall Headache Altered Level Of Consciousness Amalia Corral is a 74 year old female with history of multiple chronic medical problems who presents with Shortness of Breath and Chest Pain. - Symptoms began today per daughter. - Severity: moderate - Symptoms are associated with fall on , headache, tailbone pain. - Symptoms are not associated with unable to specify - patient pleasantly confused. Patient presents with daughter due to concern concern for increased confusion since she picked her up from facility on . Patient typically lives with the daughter, the daughter was gone for 10 days and had the patient staying in a facility while she was gone. She picked her up evening and noticed that she was more confused than her normal baseline with her history of dementia. She states that she was told that the patient had fallen earlier on and was found on her back. Daughter reports the facility said that she was checked out. She is on Eliquis. Daughter notes that the patient was complaining of her tailbone hurting and is difficulty walking from her normal baseline due to the tailbone pain. Patient currently is pleasantly confused. She denies any pain currently when asked. Daughter notes that the patient was complaining of a headache, chest pressure and shortness of breath earlier today. Daughter notes the patient is increasingly short of breath with exertion. PAST MEDICAL HISTORY Diagnosis Date Acute rheumatic heart disease, unspecified Aortic valve insufficiency Atrial fibrillation (HCC) Diabetes mellitus type 2 in obese 03/2012 Heart disease, rheumatic History of PTCA 06/01/2023 LAD AND RCA Hyperlipemia Hypertension Hypothyroid Mitral valve regurgitation Osteopenia Pulmonary hypertension (HCC) Unspecified vitamin D deficiency 10/15/2008 Vit D level 10/09: 15.7, started weekly Vitamin D. PAST SURGICAL HISTORY Procedure Laterality Date AV YESSICA ABLATION 11/19/2023 With Micra implant; Dr. Strong at [facility] CARDIOVERSION x2 CHOLECYSTECTOMY 10/01/1982 Cholecystectomy MICRA AV LEADLESS PACEMAKER 11/19/2023 With AVN catheter ablation; Dr. Strong at [facility] PERCUTANEOUS CORONARY INTERVENTION 06/01/2023 LAD AND RCA TOTAL ABDOMINAL HYSTERECT W/WO RMVL TUBE OVARY 10/01/1975 Hysterectomy, ALY FAMILY HISTORY Problem Relation Age of Onset None Father unknown health Stroke Mother POLYCYSTIC KIDNEY DISEASE,HEART DISEASE ,HYPERTENSION Hypertension Mother Heart Mother ? None Maternal Grandfather black lung other (polycystic kidney disease) Brother Breast Cancer Maternal Aunt Cancer Maternal Aunt leukemia Heart Brother AF None Sister Ischemic Heart Disease Brother [place] 66 Social History Tobacco Use Smoking status: Former Current packs/day: 0.00 Average packs/day: 1.5 packs/day for 15.0 years (22.5 ttl pk-yrs) Types: Cigarettes Start date: 10/01/1974 Quit date: 10/01/1989 Years since quittin.5 Smokeless tobacco: Never Substance and Sexual Activity Alcohol use: Yes Comment: rarely Drug use: No Sexual activity: Not on file ALLERGIES Allergen Reactions Marco Inhibitors Cough Losartan Potassium Rash At higher doses (ok at low dose) Review of Systems Unable to perform ROS: Dementia Physical Exam Vitals [04/18/25 1110] BP Pulse Temp Temp src Resp SpO2 Weight Height 121/73 70 36.6 ?C (97.8 ?F) -- 18 98 % 61.2 kg (135 lb) -- Physical Exam Vitals and nursing note reviewed. Constitutional: Appearance: She is not toxic-appearing or diaphoretic. HENT: Head: Normocephalic and atraumatic. Mouth/Throat: Mouth: Mucous membranes are moist. Eyes: General: No scleral icterus. Extraocular Movements: Extraocular movements intact. Pupils: Pupils are equal, round, and reactive to light. Cardiovascular: Rate and Rhythm: Normal rate and regular rhythm. Pulses: Normal pulses. Pulmonary: Effort: Pulmonary effort is normal. Breath sounds: Normal breath sounds. Abdominal: General: Abdomen is flat. Bowel sounds are normal. There is no distension. Palpations: Abdomen is soft. Tenderness: There is no abdominal tenderness. Musculoskeletal: Cervical back: No tenderness or bony tenderness. Thoracic back: No signs of trauma, tenderness or bony tenderness. Lumbar back: No signs of trauma, tenderness or bony tenderness. Skin: General: Skin is warm and dry. Capillary Refill: Capillary refill takes less than 2 seconds. Neurological: Mental Status: She is alert. She is disoriented and confused. GCS: GCS eye subsco (more content not included)... [facility] Ferritin SerPl-ncon 2024 Ferritin [Mass/Vol] 67.7 ng/mL Normal 14.7-205.1 [facility] Comment on above: Order Comment: Speci men Type: BLOOD SPECIMEN Ordering Facility: [facility] Address: [address] [place] [address] Performed By: #### 2 276-4, 33935-6 #### [facility] CLIA [id number] [address] [place] [address] [place] Folate SerPl-mCncon 04-18-20 25 Folate [Mass/Vol] 14.6 ng/mL Normal >4.7 [facility] Comment on above: Order Comment: Speci men Type: BLOOD SPECIMEN Ordering Facility: [facility] Address: [address] [place] [address] Performed By: #### 2 4321-2, 94424-4 #### [facility] CLIA [id number] [address] [place] [id number] [place] HIGH SENSITIVITY TROPONIN T (INITIAL)on 04-18-2025 Troponin T.cardiac High sensitivity method [Mass/Vol] 34 ng/L High <12 [facility] Comment on above: Order Comment: Colten men Type: BLOOD SPECIMEN Ordering Facility: [facility] Address: [address] [place] [address] Performed By: #### L [id number] #### [facility] CLIA [id number] [address] HIGH SENSITIVITY TROPONIN T (SECOND)on 04-18-2025 Troponin T.cardiac High sensitivity method [Mass/Vol] 29 ng/L High <12 [facility] Comment on above: Order Comment: Speckorey men Type: BLOOD SPECIMEN Ordering Facility: [facility] Address: [address] [place] [address] Performed By: #### 2 4321-2, 90327-8 #### [facility] CLIA [id number] [address] [place] [address] [facility] HIGH SENSITIVITY TROPONIN T (THIRD) 3 HRS AFTER INITIALon 04-18-2025 Troponin T.cardiac High sensitivity method [Mass/Vol] 28 ng/L High <12 [facility] Comment on above: Order Comment: Guyi men Type: BLOOD SPECIMEN Ordering Facility: [facility] Address: [address] [place] [address] Performed By: #### L [id number] #### [facility] CLIA [id number] [address] [place] [address] [place] HISTORY PHYSICALon HISTORY PHYSICAL HNO ID: [id number] Author: TANGELA FOLEY APRN.CNP Service: Hospital Medicine Author Type: Nurse Practitioner Type: H&P Filed: 04/18/2025 22:39 Note Text: Attestation signed by Ashley Zamudio DO at 05/26/2025 10:25 PM Attending Note I have not personally performed a face to face assessment of the patient. I have reviewed the EVELINE note. Signature: Ashley Zamudio Date: 05/26/2025 Time: 10:25 PM [facility] OF [facility] MEDICINE HISTORY AND PHYSICAL EXAM SERVICE DATE: 04/18/2025 SERVICE TIME: 8:29 PM Primary Care Physician: Rajat Patel MD NIGHT AND WEEKEND COVERAGE: [facility]: Days: [phone], please page attending physician. Nights: [phone], please page [place] [facility] Night coverage pager [phone]. Subjective CHIEF COMPLAINT: SOB HPI: This is a 74 year old female with a past medical history notable for DM2, chronic atrial fibrillation on Eliquis, CKD 3A, hypertension, CAD, CHB s/p pacemaker, hyperlipidemia, and dementia who presents with shortness of breath/chest pain. As the patient is a poor historian, this HPI was obtained via interview with her as well as her daughter, Aric, whom the patient lives with. According to her daughter, Amalia was in a nursing facility until this past for a period of 10 days. This was due to her dementia and Aric taking a trip and needing respite care. When Aric picked her up, the nursing facility reported that the patient had fallen "sometime" during her stay there. There appeared to be no issues and the patient had no complaints, so she was not formally evaluated as far as her daughter knows. Unfortunately, yesterday during the day the patient went shopping with her daughter, and started having increasing shortness of breath. Her daughter stated it seemed to get worse and worse and the only thing that seemed to relieve it was sitting still. Amalia also complained of feeling weak and dizziness but did not have any appreciable syncope per Aric. Her daughter also noticed that she seems slightly more confused than her baseline, which is variable. Because of all these issues, Aric decided to bring her into the emergency room for evaluation. Patient herself has no acute complaints at this time. In the [place] ED the patient was found to be afebrile and hemodynamically stable on room air. Labs are notable for creatinine of 1.26, blood glucose of 146, anion gap of 19, BNP of 6758, high-sensitivity troponin of 34 -->29-->28, hemoglobin of 9.9, and WBC of 8.97. UA was notable for +1 LE, greater than 25 RBC, and moderate bacteria. Chest x-ray demonstrated cardiomegaly and question of atelectasis versus developing pneumonia in the medial right lung base. X-ray of the sacrum and coccyx showed no acute osseous abnormality. X-ray of the hip showed no acute osseous abnormalities as well. CT of the brain and C-spine were performed which showed no acute intracranial findings, no acute radiographic findings involving the cervical spine, but did note multilevel degenerative disc disease and facet arthropathy. CT of the thoracic spine showed no acute osseous abnormality of the thoracic spine. CT of the lumbar spine showed no acute fracture in the lumbar region but did note cortical bulking anterior first coccygeal segment possibly related to nondisplaced fracture. CT of the abdomen and pelvis demonstrated bilateral renal cyst, diverticulosis of the descending and sigmoid colon without radiographic evidence of acute diverticulitis, and no renal/ureteral stone/hydronephrosis. She received doses of Lasix, Rocephin, azithromycin, and Tylenol. She is being transferred to hospital medicine at [place] for further workup and management of her altered mental status, pneumonia, acute cystitis, and possible CHF. PAST MEDICAL HISTORY Diagnosis Date Acute rheumatic heart disease, unspecified Aortic valve insufficiency Atrial fibrillation (HCC) Diabetes mellitus type 2 in obese 03/2012 Heart disease, rheumatic History of PTCA 06/01/2023 LAD AND RCA Hyperlipemia Hypertension Hypothyroid Mitral valve regurgitation Osteopenia Pulmonary hypertension (HCC) Unspecified vitamin D deficiency 10/15/2008 Vit D level 10/09: 15.7, started weekly Vitamin D. PAST SURGICAL HISTORY Procedure Laterality Date AV YESSICA ABLATION 11/19/2023 With Micra implant; Dr. Strong at [facility] CARDIOVERSION x2 CHOLECYSTECTOMY 10/01/1982 Cholecystectomy MICRA AV LEADLESS PACEMAKER 11/19/2023 With AVN catheter ablation; Dr. Strong at [facility] PERCUTANEOUS CORONARY INTERVENTION 06/01/2023 LAD AND RCA TOTAL ABDOMINAL HYSTERECT W/WO RMVL TUBE OVARY 10/01/1975 Hysterectomy, ALY FAMILY HISTORY Problem Relation Age of Onset None Father unknown health Stroke Mother KAREY (more content not included)... Normal [facility] HbA1c (Bld)on 04-18-2025 Average glucose Estimated from glycated hemoglobin (Bld) [Mass/Vol] 157 mg/dL Normal [facility] Comment on above: Order Comment: Colten bustamante Type: BLOOD SPECIMEN Ordering Facility: [facility] Address: [address] [place] [address] Result Comment: eAG: (Estimated average glucose) is a calculated value from HgbA1c and is counter sales representative of the average blood glucose level in the last 2-3 month period. Performed By: #### 5 5454-3 #### [facility] CLIA [id number] [address] [place] [address] [place] HbA1c (Bld) [Mass fraction] 7.1 % High 4.3-5.6 [facility] Comment on above: Order Comment: Colten bustamante Type: BLOOD SPECIMEN Ordering Facility: [facility] Address: [address] [place] [address] Result Comment: Pauly [place] Diabetes Association guidelines indicate that patients with HgbA1c in the range 5.7-6.4% are at increased risk for development of diabetes, and intervention by lifestyle modification may be beneficial. HgbA1c greater or equal to 6.5% is considered diagnostic of diabetes. Performed By: #### 5 5454-3 #### [facility] CLIA [id number] [address] [place] [address] [place] Iron and Iron binding capaci ty panelon 04-18-2025 Iron [Mass/Vol] 29 ug/dL Low 41-186 [facility] Comment on above: Order Comment: Speci men Type: BLOOD SPECIMEN Ordering Facility: [facility] Address: [address] [place] [address] Performed By: #### 2 276-4, 44088-6 #### [facility] CLIA [id number] [address] [place] [address] [place] Iron binding capacity [Mass/Vol] 273 ug/dL Normal 232-386 [facility] Comment on above: Order Comment: Speci men Type: BLOOD SPECIMEN Ordering Facility: [facility] Address: [address] [place] [address] Performed By: #### 2 276-4, 67770-0 #### [facility] CLIA [id number] [address] [place] [address] [place] Iron/TIBC [Molar ratio] 10.6 % Low 15.0-57.0 [facility] Comment on above: Order Comment: Speci men Type: BLOOD SPECIMEN Ordering Facility: [facility] Address: [address] [place] [address] Performed By: #### 2 276-4, 05377-8 #### [facility] CLIA [id number] [address] [place] [address] [place] NT-proBNP [facility] 04-18 Natriuretic peptide.B prohormone N-Terminal [Mass/Vol] 6758 pg/mL High <450 [facility] Comment on above: Order Comment: Speci men Type: BLOOD SPECIMEN Ordering Facility: [facility] Address: [address] [place] [address] Performed By: #### 2 4321-2, 46450-6 #### [facility] CLIA [id number] [address] [place] [address] [place] Procalcitonin SerPl-mCncon 0 04-18-2025 Procalcitonin [Mass/Vol] 1.64 ng/mL High <0.09 [facility] Comment on above: Order Comment: Speci men Type: BLOOD SPECIMEN Ordering Facility: [facility] Address: [address] [place] [address] Result Comment: For a guided interpretation of test results, please visit the Change in Procalcitonin Calculator, [email or web address]. Performed By: #### 2 4321-2, 92926-7 #### [facility] CLIA [id number] [address] [place] [address] [facility] Urinalysis complete panel (U )on 04-18-2025 Bacteria LM.HPF (Urine sed) [#/Area] Moderate Abnormal None Seen [facility] Comment on above: Order Comment: Speci men Type: URINE SPECIMEN Ordering Facility: [facility] Address: [address] [place] [address] Performed By: #### 2 4356-8 #### [facility] CLIA [id number] [address] [place] [address] [place] Bilirubin Ql (U) Negative Normal Negative [facility] Comment on above: Order Comment: Speci men Type: URINE SPECIMEN Ordering Facility: [facility] Address: [address] [place] [address] Performed By: #### 2 4356-8 #### [facility] CLIA [id number] [address] [place] [address] [place] Clarity (Unsp spec) Cloudy Abnormal Clear [facility] Comment on above: Order Comment: Speci men Type: URINE SPECIMEN Ordering Facility: [facility] Address: [address] [place] [address] Performed By: #### 2 4356-8 #### [facility] CLIA [id number] [address] [place] [address] [place] Color (U) Yellow Normal Yellow [facility] Comment on above: Order Comment: Speci men Type: URINE SPECIMEN Ordering Facility: [facility] Address: [address] [place] [address] Performed By: #### 2 4356-8 #### [facility] CLIA [id number] [address] [place] [address] [place] Epithelial cells LM.HPF (Urine sed) [#/Area] Few Normal [facility] Comment on above: Order Comment: Speci men Type: URINE SPECIMEN Ordering Facility: [facility] Address: [address] [place] [address] Result Comment: Few Performed By: #### 2 4356-8 #### [facility] CLIA [id number] [address] [place] [address] [facility] Glucose Test strip (U) [Mass/Vol] 2+ Abnormal Negative [facility] Comment on above: Order Comment: Speci men Type: URINE SPECIMEN Ordering Facility: [facility] Address: [address] [place] [address] Performed By: #### 2 4356-8 #### [facility] CLIA [id number] [address] [place] [address] [place] Hemoglobin Ql (U) 3+ Abnormal Negative [facility] Comment on above: Order Comment: Speci men Type: URINE SPECIMEN Ordering Facility: [facility] Address: [address] [place] [address] Performed By: #### 2 4356-8 #### [facility] CLIA [id number] [address] [place] [address] [place] Ketones Ql (U) Negative Normal Negative [facility] Comment on above: Order Comment: Speci men Type: URINE SPECIMEN Ordering Facility: [facility] Address: [address] [place] [address] Performed By: #### 2 4356-8 #### [facility] CLIA [id number] [address] [place] [address] [place] Leukocyte esterase Test strip Ql (U) 1+ Abnormal Negative [facility] Comment on above: Order Comment: Speci men Type: URINE SPECIMEN Ordering Facility: [facility] Address: [address] [place] [address] Performed By: #### 2 4356-8 #### [facility] CLIA [id number] [address] [place] [address] [place] Nitrite Ql (U) Negative Normal Negative [facility] Comment on above: Order Comment: Speci men Type: URINE SPECIMEN Ordering Facility: [facility] Address: [address] [place] [address] Performed By: #### 2 4356-8 #### [facility] CLIA [id number] [address] [place] [address] [place] pH (U) 5.0 [pH] Normal 5.0-8.0 [facility] Comment on above: Order Comment: Speci men Type: URINE SPECIMEN Ordering Facility: [facility] Address: [address] [place] [address] Performed By: #### 2 4356-8 #### [facility] CLIA [id number] [address] [place] [address] [place] Protein (U) [Mass/Vol] 1+ Abnormal Negative [facility] Comment on above: Order Comment: Speci men Type: URINE SPECIMEN Ordering Facility: [facility] Address: [address] [place] [address] Performed By: #### 2 4356-8 #### [facility] CLIA [id number] [address] [place], [place] [id number] [place] RBC LM.HPF (Urine sed) [#/Area] /[HPF] Abnormal 0-3 /HPF [facility] Comment on above: Order Comment: Speci men Type: URINE SPECIMEN Ordering Facility: [facility] Address: [address] [place] [address] Performed By: #### 2 4356-8 #### [facility] CLIA [id number] [address] [place] [address] [place] Specific gravity (U) [Rel density] 1.015 Normal 1.005-1.03 0 [facility] Comment on above: Order Comment: Speci men Type: URINE SPECIMEN Ordering Facility: [facility] Address: [address] [place] [address] Performed By: #### 2 4356-8 #### [facility] CLIA [id number] [address] [place] [address] [place] Urobilinogen Ql (U) 0.2 EU/dL Normal 0.2-1.0 EU/dL [facility] Comment on above: Order Comment: Speci men Type: URINE SPECIMEN Ordering Facility: [facility] Address: [address] [place] [address] Performed By: #### 2 4356-8 #### [facility] CLIA [id number] [address] [place], [place] [id number] [place] WBC LM.HPF (Urine sed) [#/Area] 0-5 /HPF Normal 0-5 /HPF [facility] Comment on above: Order Comment: Speci men Type: URINE SPECIMEN Ordering Facility: [facility] Address: [address] [place] [address] Performed By: #### 2 4356-8 #### [facility] CLIA [id number] [address] [place], [place] [id number] [place] VITAMIN B1 (THIAMINE), WHOLE BLOODon 04-18-2025 Thiamine (Bld) [Moles/Vol] 176.1 nmol/L Normal 84.3-213.3 [facility] Comment on above: Order Comment: Speci men Type: BLOOD SPECIMEN Ordering Facility: [facility] Address: [address] [place] [address] Result Comment: This assay measures the concentration of thiamine diphosphate (TDP), the primary active form of vitamin B1. Approximately 90 percent of vitamin B1 present in whole blood is TDP. Thiamine and thiamine monophosphate, which comprise the remaining 10 percent, are not measured. This test was developed, and its performance characteristics determined by the [facility] Department of Pathology and Laboratory Medicine. It has not been cleared or approved by the FDA. The [facility] Department of Pathology and Laboratory Medicine is regulated under CLIA as qualified to perform high-complexity testing. This test is used for clinical purposes. It should not be regarded as investigational or for research. Performed By: #### B 1WB #### [facility] CLIA [id number] [address] [place] [address] [place] Vit B12 SerPl-mCncon 025 Cobalamin (Vitamin B12) [Mass/Vol] 981 pg/mL Normal 232-1245 [facility] Comment on above: Order Comment: Speci men Type: BLOOD SPECIMEN Ordering Facility: [facility] Address: [address] [place] [address] Performed By: #### 2 4321-2, 29076-5 #### [facility] CLIA [id number] [address] [place] [address] [place] XR CHEST 1V FRONTALon 2024 XR CHEST 1V FRONTAL * * *Final Report* * * DATE OF EXAM: Apr 18 2025 1:00PM LDX 5290 - XR CHEST 1V FRONTAL / PROCEDURE REASON: Shortness of breath * * * * Physician Interpretation * * * * EXAMINATION: CHEST RADIOGRAPH (SINGLE VIEW AP OR PA) CLINICAL HISTORY: Shortness of breath MQ: XC1_5 Comparison: 10/24/2023 RESULT: Lines, tubes, and devices: air sampling and monitoring leads. Suspected cardiac loop recorder projected over the heart. Lungs and pleura: Question diminished aeration medial right lung base. Lungs are otherwise clear. Cardiomediastinal silhouette: Cardiomegaly. Other: No significant additional findings. IMPRESSION: 1. Question atelectasis versus developing pneumonia medial right lung base. 2. Cardiomegaly. Hay Stacker Operator: DEENA Transcribe Date/Time: Apr 18 2025 2:00P Dictated by : CHER BERNAL MD This examination was interpreted and the report reviewed and electronically signed by: CHER BERNAL MD on Apr 18 2025 2:02PM EST [id number] Normal [facility] XR PELVIS 1V APon 04-18-2025 XR PELVIS 1V AP * * *Final Report* * * DATE OF EXAM: Apr 18 2025 1:02PM LDX 5239 - XR PELVIS 1V AP / PROCEDURE REASON: Other * * * * Physician Interpretation * * * * PELVIS, AP: SACRUM AND COCCYX, AP, AP TILT AND LATERAL: CLINICAL INDICATION: Pelvic pain. Sacrococcygeal pain. Clinical history of mechanical fall. COMPARISON: CT lumbar spine same day. Pelvis: The osseous pelvis appears intact. The SI joints are maintained. There are degenerative changes at symphysis pubis. There are moderate degenerative changes bilateral hip joints. Sacrum and coccyx: The SI joints are maintained. There is no displaced sacrococcygeal fracture. IMPRESSION (combined): No acute osseous abnormality. Hay Stacker Operator: [facility] Transcribe Date/Time: Apr 18 2025 2:01P Dictated by : LUIS STEWART MD This examination was interpreted and the report reviewed and electronically signed by: LUIS STEWART MD on Apr 18 2025 2:20PM EST [id number] Normal [facility] XR SACRUM/COCCYX 3V AP/LATon 04-18-2025 XR SACRUM/COCCYX 3V AP/LAT * * *Final Report* * * DATE OF EXAM: Apr 18 2025 1:01PM LDX 5246 - XR SACRUM/COCCYX 3V AP/LAT / PROCEDURE REASON: Coccydynia pain * * * * Physician Interpretation * * * * PELVIS, AP: SACRUM AND COCCYX, AP, AP TILT AND LATERAL: CLINICAL INDICATION: Pelvic pain. Sacrococcygeal pain. Clinical history of mechanical fall. COMPARISON: CT lumbar spine same day. Pelvis: The osseous pelvis appears intact. The SI joints are maintained. There are degenerative changes at symphysis pubis. There are moderate degenerative changes bilateral hip joints. Sacrum and coccyx: The SI joints are maintained. There is no displaced sacrococcygeal fracture. IMPRESSION (combined): No acute osseous abnormality. Hay Stacker Operator: [facility] Transcribe Date/Time: Apr 18 2025 2:01P Dictated by : LUIS STEWART MD This examination was interpreted and the report reviewed and electronically signed by: LUIS STEWART MD on Apr 18 2025 2:20PM EST [id number] Normal [facility] Office Visiton 02-10-2025 Follow-up visit [id number] José Antonio Corral 1950 F Date Provider Department Center 02/10/2025 [id number], IVANNA MG [facility] CS None Family History Problem Relation Age of Onset Hypertension Mother Kidney failure Mother Heart disease Mother No Known Problems Father Heart disease Brother Family Status - Relation Status Age at Mother Father Brother Level of Service:57426 [place] OFFICE/OUTPATIENT ESTABLISHED HIGH MDM 40 MIN Reason for Visit and Comments: Memory Loss [66] Normal [facility] Progress Noteon 02-10-2025 Progress Note - Cognitive testing grossly stable over the past year - Remains in moderate stage - Continue donepezil 10 mg daily as currently prescribed for memory loss. Tolerating current dose of medication. Will continue to follow along with medication and adjust PRN. - For anger,/agitation continue sertraline 75 mg daily. Dtr initially saw improvement in anger when medication increased at last visit. Not helping as much now. Continue sertraline as is. Start low dose trazodone 50 mg nightly to help with agitation and hallucinations. Asked dtr to contact me in 4-6 weeks to let me know how pt is responding to medication. Call for any problems with medication before then. Will continue to monitor and adjust medications as needed for behaviors/mood. - Continue non-pharmacologic interventions for memory - Has adequate supervision over 5 Ms- dtr providing - F/u in 6 months for routine visit/memory testing Normal [facility] Progress Note Review of Systems Constitutional: Positive for appetite change. Negative for fatigue and unexpected weight change. HENT: Positive for dental problem and trouble swallowing. Negative for hearing loss. Eyes: Negative for visual disturbance. Gastrointestinal: Positive for diarrhea. Negative for constipation. Genitourinary: Negative for difficulty urinating and dysuria. Musculoskeletal: Positive for back pain and gait problem. Neurological: Positive for speech difficulty and weakness. Negative for tremors. Psychiatric/Behavioral: Positive for agitation, confusion, hallucinations and sleep disturbance. Negative for dysphoric mood. The patient is nervous/anxious. Normal [facility] Progress Note [facility] [place] [address] [facility] [address] Dept: [phone] Dept Loc: [phone] Visit type: [facility] Follow Up Visit Reason for Visit: Memory Loss Visit Date: 02/10/2025 Assessment and Plan 1. 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 Tolerating current dose of medication. Will continue to follow along with medication and adjust PRN. - For anger,/agitation continue sertraline 75 mg daily. Dtr initially saw improvement in anger when medication increased at last visit. Not helping as much now. Continue sertraline as is. Start low dose trazodone 50 mg nightly to help with agitation and hallucinations. Asked dtr to contact me in 4-6 weeks to let me know how pt is responding to medication. Call for any problems with medication before then. Will continue to monitor and adjust medications as needed for behaviors/mood. - Continue non-pharmacologic interventions for memory - Has adequate supervision over 5 Ms- dtr providing - F/u in 6 months for routine visit/memory testing Orders: - traZODone (Desyrel) 50 MG tablet; Take 1 tablet (50 mg) by mouth Nightly. Give 30 minutes before bedtime, Starting Sun02/10/2025, Normal - sertraline (Zoloft) 50 MG tablet; TAKE 1.5 TABLETS BY MOUTH DAILY, Normal - donepezil (Aricept) 10 MG tablet; Take 1 tablet (10 mg) by mouth daily., Starting Sun02/10/2025, Normal Follow up in about 6 months (around 08/13/2025). Subjective HPI: Amalia Corral is a 74 y.o. female who presents to the [facility] for a follow-up visit. The patient is known to me. Established pt, initially seen in 03/2023, diagnosed with early moderate Alzheimer's disease in 07/2023. Last seen in 08/2024- [place] 14 (MIS 2), CDT 5, moderate stage, continued donepezil 10 mg but changed to AM dosing due to vivid dreams, increased sertraline to 75 mg daily due to increased anger towards hsbd. History obtained from caregiver(s): Pt is here with her dtr Rick. Memory- Slow progressive decline in short term memory over the past 6 months since last visit in 08/2024. Has good days and bad days. Seems to remember better when there's an emotional connection. Function- Dtr is having to help her more now. Driving- no longer driving. Personal care- has incontinence even if she's napping during the daytime. Wearing depends all the time now. Safety issues- Had an unwitnessed fall but no injuries. Not using any kitchen appliances. No wandering outside the home. Mood/behaviors- Good most of the time. Behaviors- has had a few incidents of agitation. Has broken some plates or glasses in the sink. Has happened 3-4 times over the past month. Hallucinating in the evening at times. Seeing a man in her room at night. Appetite- Good. Will eat too much at times. No noticeable weight loss. Sleep- Usually sleeps well unless she's having hallucinations. History obtained from patient: Doing well. Not having pain. Mood: Good most of the time. Doesn't feel depressed. Gets anxious sometimes. Appetite: Good most of the time. Sleep: No issues. Reviewed progress notes completed by ANMOL FERNANDO) and social work. Allergies[1] Current Medications[2] Medical History[3] Social History Tobacco Use Smoking status: Never Smokeless tobacco: Never Substance Use Topics Alcohol use: Never Surgical History[4] Family History[5] Family Status Relation Name Status Mother (Not Specified) Father (Not Specified) Brother No partnership data on file Objective Vitals: 02/10/25 1047 BP: 98/59 BP Location: Right arm Patient Position: Sitting BP Cuff Size: Adult Pulse: 77 Weight: 147 lb 3.2 oz (66.8 kg) Wt Readings from Last 3 Encounters: 02/10/25 147 lb 3.2 oz (66.8 kg) 08/12/24 147 lb 9.6 oz (67 kg) 04/29/24 154 lb 6.4 oz (70 kg) Physical Exam Constitutional: General: She is not in acute distress. Appearance: She is not ill-appearing. Comments: Elderly female. Pleasant and cooperative. Well kempt, well nourished. HENT: Head: Normocephalic. Comments: Wears glasses. No hearing aids. Right Ear: External ear normal. Left Ear: External ear normal. Cardiovascular: Rate and Rhythm: Normal rate and regular rhythm. Heart sounds: No murmur heard. Pulmonary: Effort: Pulmonary effort is normal. No respiratory distress. Breath sounds: Normal breath sounds. Abdominal: General: Abdomen is flat. Bowel sounds are normal. Palpations: Abdomen is soft. Tenderness: There is no abdominal tenderness. Musculoskeletal: General: No swelling (BLE). Deformity: 1-2+ BLE. Comments: Muscle strength 4/5 BLE Skin: General: Skin is warm and dry. Neurological: Comments: Al (more content not included)... Normal [facility] Progress Note [facility]/Cristina atri Social History Present at visit: patient, daughter- Rick Marital status: Children: 3 children (1 local) Living arrangement: patient and spouse lives with mode Cabrera >>01/29/24 same >>08/12/24 same >>02/10/25 same (goes back and forth between daughter's 2 homes- 1 in [facility]) Household safety problems: none >>01/29/24 burned pop-tart in microwave >>08/12/24 one fall, no injury, >>02/10/25 one fall Concerning Behaviors: Hallucinations during hospital stay/UTI >>01/29/24 none >>02/10/25 some hallucinations Wandering potential: No >>01/29/24 no >>08/12/24 no >>02/10/25 no Pets: No Guns in the home: None Elder abuse: No/Denied Concerns >>01/29/24 no >>02/10/25 no Alcohol/Tobacco/Marijuana/D rug Use History: none service: Spouse was a [place] ([place]) Highest level of education: 11th grade 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 Activities: exercise video 30 min/day, prep food for meals, journaling, cleaning, friends/family visting, talks on phone daily with friends >>01/29/24 cleaning, gets together with friends, goes to [employer] to shop >>08/12/24 Adult Day Program 2 days, will have friends come to visit >>02/10/25 Adult Day Program 2-3 days per week, cleans, does errands with daughter Exercise: exercise 30 min/day Finances: has savings, over $2000, SS income $1900 Healthcare Power of Marketing Strategy Manager: Yes: mode Cabrera Financial Power of Marketing Strategy Manager: Yes: mode Cabrera Living Will: Yes Guardian: No Code Status: Full Code Primary Caregiver: mode Cabrera Current care plan/supervision: >>01/29/24 daughter with them most of the time, has someone stay if going to be gone, can leave a few hours >>08/12/24 daughter with patient most of the time if patient not at Adult Day Program >>02/10/25 same Community resources: None >>01/29/24 video monitoring >>08/12/24 on Passport now, Adult Day Program 2 days per week, video monitoring >>02/10/25 did not qualify for Passport, private pay Adult Day Program, video monitoring, life alert Caregiver stressors: some caregiver stress due to medical needs of both patient and spouse >>01/29/24 daughter denies too much stress >>08/12/24 daughter managing stress better since Passport services started >>02/10/25 Not eligible for Passport at this time, denies too much stress Goals for care: evaluate memory, keep patient at home with daughter As a Caregiver, What Matters Most to You: Increase understanding of community resources >>04/24/23 Patient and had been living in [place] with another one of their children. Has moved here 5 weeks ago. Getting lost driving. Daughter Rick noticed that patient is having memory issues and having confusion. Had a hospitalization due to low heart rate, very confused in the hospital. Rick is having some stress due to caregiving for both patient and patient's spouse- both having much medical issues. >>01/29/24 Patient having some slight decline on memory test today. Daughter continues to be main caregiver for patient and spouse. Daughter denies too much caregiver stress. Daughter is considering taking patient and spouse to Adult Day Program to get them engaged in activities. SW gave some tips on how to approach that- encouraged her to try in order to give her some respite. No resources given today. >>08/12/24 Patient now has Passport services, patient and spouse are going to Adult Day Program 2 days per week, may increase days in the future. SW talked to daughter about all the services that Passport can provide, aides, Depends, medical equipment, respite stays at facilities. [facility] Sub[facility] about these things. Patient staying stable on memory test today; daughter noticing some slight decline in function. SW encouraged daughter to bring in Healthcare Power of Marketing Strategy Manager and living will so that we can scan into patient's chart. No resources given today. >>02/10/25 Patient more angry, having some hallucinations. Patient having good days and bad days. Patient's memory test and function staying stable. Resources given today: hallucinations, anger Functional Status (I: Independent, A: Assisted, D: Dependent) ADLs I A D Notes Bathing [] [] [x] Needs reminders/cuing, shower set up. >>01/29/24 same >>08/12/24 needs hands on help >>02/10/25 same Dressing [] [] [x] Would wear the same clothes if not cued >>01/29/24 will put clean clothes in laundry, daughter cues her to change clothes >>08/12/24 hands on help with dressing >>02/10/25 same Toileting [] [x] [] No issues >>01/29/24 puts too much toilet paper in toilet, clogging toilet, goes through 3 rolls in 2 days >>08/12/24 wearing Depends all the time now, keeps taking off Depends>>02/10/25 same Transfers [x] [] [] No issues >>01/29/24 with some difficulty >>02/10/25 same Feeding [] [x] [] No issues >>01/29/24 unable to cut meat anymore >>08/12/24 same >>02/10/25 same Ambula (more content not included)... Normal [facility] Anion gap in Serum or Plasma Ordered By: Rajat Patel on 01-01-2025 Anion gap [Moles/Vol] 15 mmol/L 5- [facility] BUN/creatinine ratioOrdered By: Rajat Patel on 01-01-2025 Urea nitrogen/Creatinine [Mass ratio] 20.1 mg/mg High - [facility] Bilirubin, totalOrdered By: Rajat Patel on 01-01-2025 Bilirubin [Mass/Vol] 0.37 mg/dL 0.00-1.30 [facility] Calculated very low density lipoprotein (VLDL) cholesterol measurementOrdered By: Rajat Patel on 01-01-2025 VLDL Cholesterol 35 mg/dL 5-40 [facility] Carbon dioxide, total [Moles /volume] in Central venous bloodOrdered By: Rajat Patel on 01-01-2025 CO2 [Moles/Vol] 18.1 mmol/L Low 21.0-32.0 [facility] Chloride assayOrdered By: Alfonso Patel on 01-01-2025 Chloride [Moles/Vol] 106 mmol/L 98-108 [facility] Comprehensive Metabolic Prof ilon 01-01-2025 Albumin [Mass/Vol] 4.5 g/dL Normal 3.4-4.8 [facility] Comment on above: Order Comment: Order Date: 01/01/25 Order Info: 07 - CMP Order Info: - LIPID Order Info: 3 - TSH Order Info: 8 - FOLS Performed By: #### L 501.9520, L500.4050, L500.4100 #### [facility] [address] [place], [place], [address] Albumin/Globulin [Mass ratio] 1.2 {ratio} Normal 0.9-2.4 [facility] Comment on above: Order Comment: Order Date: 01/01/25 Order Info: 785-10 - CMP Order Info: - LIPID Order Info: 3 - TSH Order Info: 8 - FOLS Performed By: #### L [id number], L500.4050, L500.4100 #### [facility] [address] [place], [address] ALK PHOS 72 U/L Normal 35-104 [facility] Comment on above: Order Comment: Order Date: 01/01/25 Order Info: 0786 - CMP Order Info: - LIPID Order Info: 3 - TSH Order Info: 8 - FOLS Performed By: #### L 501.9520, L500.4050, L500.4100 #### [facility] [address] [place], [address] ALT [Catalytic activity/Vol] 20 U/L Normal <=34 [facility] Comment on above: Order Comment: Order Date: 01/01/25 Order Info: 785- - CMP Order Info: - LIPID Order Info: 3015-11 - TSH Order Info: 8 - FOLS Performed By: #### L 501.9520, L500.4050, L500.4100 #### [facility] [address] [place], [address] AST [Catalytic activity/Vol] 28 U/L Normal <=31 [facility] Comment on above: Order Comment: Order Date: 01/01/25 Order Info: 785- - CMP Order Info: - LIPID Order Info: 3015-11 - TSH Order Info: [id number] - FOLS Performed By: #### L [id number], L500.4050, L500.4100 #### [facility] [address] [place], [address] Bilirubin [Mass/Vol] 0.37 mg/dL Normal 0.00-1.30 [facility] Comment on above: Order Comment: Order Date: 01/01/25 Order Info: 785-10 - CMP Order Info: - LIPID Order Info: [id number] - TSH Order Info: 8 - FOLS Performed By: #### L [id number], L500.4050, L500.4100 #### [facility] [address] [place], [address] BUN/CRE 20.1 RATIO High 10-20 [facility] Comment on above: Order Comment: Order Date: 01/01/25 Order Info: 785-10 - CMP Order Info: - LIPID Order Info: [id number] - TSH Order Info: 8 - FOLS Performed By: #### L [id number], L500.4050, L500.4100 #### [facility] [address] [place], [address] Calcium [Mass/Vol] 10.1 mg/dL Normal 7.6-11.0 [facility] Comment on above: Order Comment: Order Date: 01/01/25 Order Info: 07-1 - CMP Order Info: [id number] - LIPID Order Info: 3 - TSH Order Info: 2288 - FOLS Performed By: #### L [id number], L500.4050, L500.4100 #### [facility] [address] [place], [address] Chloride [Moles/Vol] 106 mmol/L Normal 98-108 [facility] Comment on above: Order Comment: Order Date: 01/01/25 Order Info: 785-10 - CMP Order Info: - LIPID Order Info: [id number] - TSH Order Info: 8 - FOLS Performed By: #### L [id number], L500.4050, L500.4100 #### [facility] [address] [place], [address] CO2 [Moles/Vol] 18.1 mmol/L Low 21.0-32.0 [facility] Comment on above: Order Comment: Order Date: 01/01/25 Order Info: 0786 - CMP Order Info: [id number] - LIPID Order Info: 3015-11 - TSH Order Info: 2288 - FOLS Performed By: #### L [id number], L500.4050, L500.4100 #### [facility] [address] [place], [address] Creatinine [Mass/Vol] 1.10 mg/dL Normal 0.70-1.20 [facility] Comment on above: Order Comment: Order Date: 01/01/25 Order Info: 0786-1 - CMP Order Info: [id number] - LIPID Order Info: 3 - TSH Order Info: 228-8 - FOLS Performed By: #### L 501.9520, L500.4050, L500.4100 #### [facility] [address] [place], [address] GAP 15 Normal 5-15 [facility] Comment on above: Order Comment: Order Date: 01/01/25 Order Info: 0786-1 - CMP Order Info: [id number] - LIPID Order Info: 3016-3 - TSH Order Info: 228-8 - FOLS Performed By: #### L 501.9520, L500.4050, L500.4100 #### [facility] [address] [place], [address] GFR/1.73 sq M.predicted among non-blacks MDRD (S/P/Bld) [Vol rate/Area] 52 mL/min/{1.73_m2} Low >60 [facility] Comment on above: Order Comment: Order Date: 01/01/25 Order Info: 0786- - CMP Order Info: [id number] - LIPID Order Info: 3 - TSH Order Info: 228-8 - FOLS Result Comment: mL/m in/1.73m2 CKD-EPI Creatinine Equation (2020) Performed By: #### L 501.9520, L500.4050, L500.4100 #### [facility] [address] [place], [address] Globulin (S) [Mass/Vol] 3.7 g/dL Normal 2.2-4.2 [facility] Comment on above: Order Comment: Order Date: 01/01/25 Order Info: 0786-1 - CMP Order Info: [id number] - LIPID Order Info: 3016-3 - TSH Order Info: 2284-8 - FOLS Performed By: #### L 501.9520, L500.4050, L500.4100 #### [facility] [address] [place], [address] Glucose [Mass/Vol] 107 mg/dL High 70-99 [facility] Comment on above: Order Comment: Order Date: 01/01/25 Order Info: 0786-1 - CMP Order Info: [id number] - LIPID Order Info: 3015-11 - TSH Order Info: 8 - FOLS Performed By: #### L 501.9520, L500.4050, L500.4100 #### [facility] [address] [place], [address] Potassium [Moles/Vol] 5.0 mmol/L Normal 3.3-5.1 [facility] Comment on above: Order Comment: Order Date: 01/01/25 Order Info: 0786 - CMP Order Info: - LIPID Order Info: 3015-11 - TSH Order Info: 2284-05 - FOLS Performed By: #### L [id number], L500.4050, L500.4100 #### [facility] [address] [place], [address] Sodium [Moles/Vol] 139 mmol/L Normal 133-145 [facility] Comment on above: Order Comment: Order Date: 01/01/25 Order Info: 0786 - CMP Order Info: - LIPID Order Info: [id number] - TSH Order Info: 2284-05 - FOLS Performed By: #### L 501.9520, L500.4050, L500.4100 #### [facility] [address] [place], [address] T PROT 8.2 g/dL Normal 5.9-8.4 [facility] Comment on above: Order Comment: Order Date: 01/01/25 Order Info: 0786 - CMP Order Info: [id number] - LIPID Order Info: 3015-11 - TSH Order Info: 8 - FOLS Performed By: #### L 501.9520, L500.4050, L500.4100 #### [facility] [address] [place], [address] Urea nitrogen [Mass/Vol] 22 mg/dL High 4-19 [facility] Comment on above: Order Comment: Order Date: 01/01/25 Order Info: 0786-1 - CMP Order Info: [id number] - LIPID Order Info: 3 - TSH Order Info: 2288 - FOLS Performed By: #### L 501.9520, L500.4050, L500.4100 #### [facility] [address] [place], [place], [address] Folate [Moles/Vol]Ordered By : Rajat Patel on 01-01-2025 Serum Folate 11.20 ng/mL 4.60-34.80 [facility] Folates,Serum (Folic Acid)on 01-01-2025 FOLATES,SERUM 11.20 ng/mL Normal 4.60-34.80 [facility] Comment on above: Order Comment: Order Date: 01/01/25 Order Info: 0786-1 - CMP Order Info: [id number] - LIPID Order Info: 3 - TSH Order Info: 2288 - FOLS Performed By: #### L 501.9520, L500.4050, L500.4100 #### [facility] [address] [place], [place], [address] GFR/1.73 sq M.predicted ynes g non-blacks MDRD (S/P/Bld) [Vol rate/Area]Ordered By: Rajat Patel on 01-01-2025 Estimated GFR (MDRD) Non-Af Amer 52 Low >60 [facility] Comment on above: mL/min/1.73m2 CKD-EP I Creatinine Equation (2020) LDL calc ser/plasOrdered By: Rajat Patel on 01-01-2025 LDL Cholesterol, Calculated 91 mg/dL [facility] Comment on above: Jkodhpeoed=805-880 m g/dL & Higher Qmkd=437 mg/dL or greater Laboratory - Chemistry and C hemistry - challengeOrdered By: Rajat Patel on 01-01-2025 AST [Catalytic activity/Vol] 28 U/L <32 [facility] Lipid Profileon 01-01-2025 CHOL:HDL 3.13 Normal [facility] Comment on above: Order Comment: Order Date: 01/01/25 Order Info: 0786-1 - CMP Order Info: [id number] - LIPID Order Info: [id number] - TSH Order Info: 8 - FOLS Performed By: #### L 501.9520, L500.4050, L500.4100 #### [facility] [address] [place], [address] Cholesterol [Mass/Vol] 185 mg/dL Normal <=200 [facility] Comment on above: Order Comment: Order Date: 01/01/25 Order Info: 0786-1 - CMP Order Info: [id number] - LIPID Order Info: 3 - TSH Order Info: 8 - FOLS Result Comment: Chol esterol level, Desirable <200 mg/dL Borderline high cholesterol 200-239 mg/dL High cholesterol >=240 mg/dL Recommendations of the NCEP Adult Treatment Panel for the following risk-cutoff thresholds for the [place] population. Performed By: #### L 501.9520, L500.4050, L500.4100 #### [facility] [address] [place], [address] Cholesterol in HDL [Mass/Vol] 59 mg/dL Normal [facility] Comment on above: Order Comment: Order Date: 01/01/25 Order Info: 0786-1 - CMP Order Info: [id number] - LIPID Order Info: 3 - TSH Order Info: [id number] - FOLS Result Comment: Ariadna onal Cholesterol Education Program (NCEP) guidelines: <40 mg/dL: Low HDL-cholesterol (major risk factor for CHD) >= 60 mg/dL: High HDL-cholesterol (negative risk factor for CHD) HDL-cholesterol is affected by a number of factors, e.g. smoking, exercise, hormones, sex and age. Performed By: #### L 501.9520, L500.4050, L500.4100 #### [facility] [address] [place], [address] Cholesterol in LDL [Mass/Vol] 91 mg/dL Normal [facility] Comment on above: Order Comment: Order Date: 01/01/25 Order Info: 0786-1 - CMP Order Info: [id number] - LIPID Order Info: 3 - TSH Order Info: [id number] - FOLS Result Comment: Bord pbjkwz=330-890 mg/dL Higher Cvaq=791 mg/dL or greater Performed By: #### L 501.9520, L500.4050, L500.4100 #### [facility] [address] [place], [address] Cholesterol in VLDL [Mass/Vol] 35 mg/dL Normal 5-40 [facility] Comment on above: Order Comment: Order Date: 01/01/25 Order Info: 0786 - CMP Order Info: - LIPID Order Info: [id number] - TSH Order Info: [id number] - FOLS Performed By: #### L 501.9520, L500.4050, L500.4100 #### [facility] [address] [place], [address] Triglyceride [Mass/Vol] 176 mg/dL Normal [facility] Comment on above: Order Comment: Order Date: 01/01/25 Order Info: 0786 - CMP Order Info: - LIPID Order Info: 3 - TSH Order Info: 8 - FOLS Result Comment: The drugs N-Acetylcysteine and Metamizole may falsely depress this assay. Normal range: <150 mg/dL Borderline High: 150-199 mg/dL High: 200-499 mg/dL Very High: >500 mg/dL Performed By: #### L 501.9520, L500.4050, L500.4100 #### [facility] [address] [place], [address] Potassium (Unsp spec) [Mass/ Vol]Ordered By: Rajat Patel on 01-01-2025 Potassium [Moles/Vol] 5.0 mmol/L 3.3-5.1 [facility] Screening total cholesterol/ high density lipoprotein (HDL) cholesterol ratioOrdered By: Rajat Patel on 01-01-2025 Cholesterol.total/Cho lesterol in HDL [Mass ratio] 3.13 {ratio} [facility] Serum creatinine measurement (mass/volume)Ordered By: Rajat Patel on 01-01-2025 Creatinine [Mass/Vol] 1.10 mg/dL 0.70-1.20 [facility] Serum globulin measurementOr dered By: Rajat Patel on 01-01-2025 Globulin (S) [Mass/Vol] 3.7 g/dL 2.2-4.2 [facility] Serum glucose measurement (m ass/volume)Ordered By: Rajat Patel on 01-01-2025 Glucose [Mass/Vol] 107 mg/dL High 70-99 [facility] Serum or plasma alanine hoffmann otransferase (ALT) measurementOrdered By: Rajat Patel on 01-01-2025 ALT [Catalytic activity/Vol] 20 U/L <35 [facility] Serum or plasma albumin teressa urement (mass/volume)Ordered By: Rajat Patel on 01-01-2025 Albumin [Mass/Vol] 4.5 g/dL 3.4-4.8 [facility] Serum or plasma albumin/glob ulin mass ratioOrdered By: Rajat Patel on 01-01-2025 Albumin/Globulin [Mass ratio] 1.2 {ratio} 0.9-2.4 [facility] Serum or plasma alkaline chong sphatase measurementOrdered By: Rajat Patel on 01-01-2025 ALP [Catalytic activity/Vol] 72 U/L 35-104 [facility] Serum or plasma calcium teressa urement (mass/volume)Ordered By: Rajat Patel on 01-01-2025 Calcium [Mass/Vol] 10.1 mg/dL 7.6-11.0 [facility] Serum or plasma cholesterol in HDL measurement (mass/volume)Ordered By: Rajat Patel on 01-01-2025 Cholesterol in HDL [Mass/Vol] 59 mg/dL >40 [facility] Comment on above: National Cholesterol Education Program (NCEP) guidelines:<40 mg/dL: Low HDL-cholesterol (major risk factor for CHD)>= 60 mg/dL: High HDL-cholesterol (negative risk factor for CHD)HDL-cholesterol is affected by a number of factors, e.g. smoking, exercise, hormones, sex and age. Serum or plasma cholesterol measurement (mass/volume)Ordered By: Rajat Patel on 01-01-2025 Cholesterol [Mass/Vol] 185 mg/dL <201 [facility] Comment on above: Cholesterol level, D esirable <200 mg/dLBorderline high cholesterol 200-239 mg/dLHigh cholesterol >=240 mg/dLRecommendations of the NCEP Adult Treatment Panel for the following risk-cutoff thresholds for the [place] population. Serum or plasma urea nitroge n measurement (mass/volume)Ordered By: Rajat Patel on 01-01-2025 Urea nitrogen [Mass/Vol] 22 mg/dL High 4-19 [facility] Sodium levelOrdered By: Rajat Patel on 01-01-2025 Sodium [Moles/Vol] 139 mmol/L 133-145 [facility] TSH DL <= 0.005 mIU/L QnOrde red By: Rajat Patel on 01-01-2025 Thyroid Stimulating Hormone (TSH) 2.500 uIU/mL 0.300-4.20 0 [facility] Thyroid Stim Hormone (TSH)on 01-01-2025 TSH 2.500 uIU/mL Normal 0.300-4.20 0 [facility] Comment on above: Order Comment: Order Date: 01/01/25 Order Info: 0786-1 - CMP Order Info: [id number] - LIPID Order Info: [id number] - TSH Order Info: [id number] - FOLS Performed By: #### L 501.9520, L500.4050, L500.4100 #### [facility] [address] [place] [address]. [place], [place], [address] Total proteinOrdered By: Ayanna Patel on 01-01-2025 Protein [Mass/Vol] 8.2 g/dL 5.9-8.4 [facility] Triglycerides measurementOrd ered By: Rajat Patel on 01-01-2025 Triglyceride [Mass/Vol] 176 mg/dL <199 [facility] Comment on above: The drugs N-Acetylcy steine and Metamizole may falsely depress this assay. Normal range: <150 mg/dLBorderline High: 150-199 mg/dLHigh: 200-499 mg/dLVery High: >500 mg/dL Vitamin B12on 01-01-2025 Cobalamin (Vitamin B12) [Mass/Vol] 2308 pg/mL High 180-914 [facility] Comment on above: Order Comment: Order Date: 01/01/25 Order Info: 0786 - CMP Order Info: [id number] - LIPID Order Info: [id number] - TSH Order Info: [id number] - FOLS Performed By: #### L 501.9520, L500.4050, L500.4100 #### [facility] [address] [place], [place], [address] Vitamin B12 ser/plasOrdered By: Rajat Patel on 01-01-2025 Cobalamin (Vitamin B12) [Mass/Vol] 2308 pg/mL High 180-914 [facility] Vitamin D, 25-hydroxyOrdered By: Rajat Patel on 01-01-2025 Vitamin D 25-Hydroxy 30.4 ng/mL 30-100 [facility] Comment on above: Vitamin D StatusDefi ciency: <20 ng/mL (50nmol/L)Insufficiency: 20-30 ng/mL (50-75 nmol/L)Sufficiency: 30-100 ng/mL (75-250 nmol/L)Toxicity: >100 ng/mL (>250 nmol/L) Vitamin D,25 Hydroxyon 01-01 Vitamin D 25-OH 30.4 ng/mL Normal 30-100 [facility] Comment on above: Order Comment: Order Date: 01/01/25 Order Info: 0786 - CMP Order Info: - LIPID Order Info: [id number] - TSH Order Info: [id number] - FOLS Result Comment: Constance min D Status Deficiency: <20 ng/mL (50nmol/L) Insufficiency: 20-30 ng/mL (50-75 nmol/L) Sufficiency: 30-100 ng/mL (75-250 nmol/L) Toxicity: >100 ng/mL (>250 nmol/L) Performed By: #### L 501.9520, L500.4050, L500.4100 #### [facility] [address] [place], [place], [address] CNOVon 11-19-2024 [facility] Office Visit (DANIEL POB) AMALIA CORRAL ([id number]) 1950 F Date Time Provider Department 11/19/24 10:40 AM [facility] During your visit today, we recorded the following information about you: Pulse Respiration Blood pressure Weight 86/minute 18/minute 98/62 61.2 kg Height 1.626 m Chloe Strong MD 11/19/2024 10:57 AM [facility] [place] [facility] SECTION OF CARDIAC PACING and ELECTROPHYSIOLOGY OUTPATIENT VISIT DATE November 19, 2024 OUTPATIENT VISIT TYPE ESTABLISHED PRIMARY CARE PHYSICIAN: Rajat Patel (Jung) [facility] [employer] [facility] [address] [place] [address] HISTORY OF PRESENT ILLNESS: 73-year-old female with history of essential hypertension, diabetes, coronary artery disease, status post PCI to LAD and RCA in June 2023, permanent atrial fibrillation, on rate control and anticoagulation strategy. The patient was seen in the hospital in the summer 2022 when she presented with atrial fibrillation with slow ventricular rate while on several negative dromotropic agents. After medication adjustment ventricular rates normalized. Later the patient was noted to have significant episodes of tachycardia. She is maintained on diltiazem, metoprolol, and now digoxin. A recent event monitor showed atrial fibrillation with average ventricular rate of 106 beats minute with fast rates up to 190 beats minute and slows in the 40s. Her daughter, who who has medical background is a critical care nurse, has been struggling with ventricular rates, as she experiences frequent episodes of hypotension, and her rate control medications have to be held. ECG today shows atrial fibrillation with ventricular rate of 71 beats minute and a narrow QRS complex. Echo in 2022 showed preserved LV systolic function. Interval history: Pat presents for follow-up. She received leadless pacemaker and AV node ablation in early 2023. Reports feeling much better, no longer has dizziness or sensation of rapid heartbeat, remains on Eliquis with no obvious bleeding complications. ECG today shows ventricularly paced rhythm at 77 beats minute. Device interrogation from earlier today showed normal function, ongoing ventricular pacing, battery longevity of more than 10 years. PAST MEDICAL HISTORY Diagnosis Date Acute rheumatic heart disease, unspecified Aortic valve insufficiency Atrial fibrillation (HCC) Diabetes mellitus type 2 in obese 03/2012 Heart disease, rheumatic History of PTCA 06/01/2023 LAD AND RCA Hyperlipemia Hypertension Hypothyroid Mitral valve regurgitation Osteopenia Pulmonary hypertension (HCC) Unspecified vitamin D deficiency 10/15/2008 Vit D level 10/09: 15.7, started weekly Vitamin D. MEDICATIONS: aspirin 81 mg cap Take 81 mg by mouth once daily. FARXIGA 10 mg tablet Take 10 mg by mouth once daily. losartan (COZAAR) 25 mg tablet Take 25 mg by mouth once daily. metoprolol tartrate, short acting, (LOPRESSOR) 50 mg tablet Take 50 mg by mouth two times a day. acetylcysteine (NAC) 600 mg capsule Take 600 mg by mouth two times a day. cholecalciferol (VITAMIN D3) 5,000 unit tab Take 5,000 Units by mouth once daily. SHELBY PEREZ U-100 INSULIN 100 unit/mL (3 mL) INJECT 6 UNITS SUBCUTANEOUSLY TWICE DAILY donepezil (ARICEPT) 10 mg tablet Take 10 mg by mouth daily at bedtime. sertraline (ZOLOFT) 50 mg tablet Take 75 mg by mouth once daily. risperiDONE (RISPERDAL) 1 mg tablet Take 1 mg by mouth as needed. pravastatin (PRAVACHOL) 20 mg tablet Take 20 mg by mouth once daily. metFORMIN (GLUCOPHAGE) 500 mg tablet Take 1,000 mg by mouth twice daily with meals. cyanocobalamin (VITAMIN B-12) 1,000 mcg tab Take 1,000 mcg by mouth once daily. Levothyroxine 25 mcg cap Take 25 mcg by mouth once daily. apixaban (ELIQUIS) 5 mg tab tab(s) Take 1 tablet by mouth twice daily. nitroglycerin sublingual (NITROQUICK) 0.4 mg SL tablet Dissolve 1 tablet under the tongue every 5 minutes as needed for chest pain. furosemide (LASIX) 20 mg tablet Take 20 mg by mouth once daily. (Patient not taking: Reported on 09/15/2024) insulin detemir (LEVEMIR) 100 unit/mL injection Inject 8 Units subcutaneously once daily. In the morning (Patient not taking: Reported on 09/15/2024) Review of Systems Constitutional: Negative for fatigue. Respiratory: Negative for shortness of breath. Cardiovascular: Negative for chest pain and palpitations. Neurological: Negative for syncope. Psychiatric/Behavioral: The patient is not nervous/anxious. PHYSICAL EXAMINATION: BP 98/62 (BP Site: Right Arm, BP Position: Sitting, BP Cuff Size: Large Adult) Pulse 86 Resp 18 Ht 5' 4" (1.626 m) Wt 135 lb (61.2 kg) SpO2 93% BMI 23.17 kg/m? BP w/Orthostatic Vitals Date and Time Orthostatic BP Orthostati (more content not included)... Normal [facility] ECG B/O W INTERP (MED OFFICE )on 11-19-2024 Electronic ventricul ar pacemaker at 77 bpm. [facility] No Panel Informationon 11-19 [facility] PACEMAKER CLINIC CHECKon Battery Voltage (volts) 3.07 V [facility] BLANK _ [facility] Won RA Sensing Blanking Period (ms) 550 ms [facility] Won RV Pacing Amplitude (volts) 1.13 V [facility] Won RV Pacing Pulse Width (ms) 0.24 ms [facility] Won RV Sensing Amplitude (mvolts) 2.0 mV [facility] Won RV Sensing Blanking Period (ms) 240 ms [facility] Implant Date 11/19/2023 [facility] Lower Rate (bpm) 70 {beats}/min [facility] Max Sensor Rate (bmp) 120 {beats}/min [facility] Model [id number] Micra VR2 [facility] Pacemaker Dependent? YES [facility] Pacing Mode VVIR [facility] PM-Device Mfg MDT [facility] PM-Percent Pacing (V) 99.29 % [facility] PM-Rate Modulation Acceleration Reaction 30 s [facility] PM-Rate Modulation ADL Rate (bpm) 95 {beats}/min [facility] PM-Rate Modulation Deceleration Exercise [facility] PM-Rate Modulation [place] 3 [facility] Rhythm No R waves @ VVI [address] [facility] Serial Number [id number] [facility] Thresh RV Capture Amplitude (volts) 0.63 V [facility] Thresh RV Capture Duration (ms) 0.24 ms [facility] 11/19/2024 Formattin g of this note might be different from the original. PPM check, (single lead) Micra system with programming. ID x2. Here for routine PM evaluation. Offers no complaints. 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 Interrogation shows no observations based on current interrogation. Recommended replacement time is >10 yrs. Lead impedances and pacing threshold stable. Counters cleared. Next device check scheduled for patient, questions answered. Desiree Moss RN NOTE TO PROVIDERS: "CARD" Flowsheets contain detailed device programming and testing data. Paceart/Interrogation PDF can be found under CARDIAC DATA AND REPORT, "Scanned Documents" section. [facility] PACEMAKER REMOTE CHECKon Battery Voltage (volts) 3.07 V [facility] BLANK _ [facility] Won RA Sensing Blanking Period (ms) 550 ms [facility] Won RV Pacing Amplitude (volts) 1.13 V [facility] Won RV Pacing Pulse Width (ms) 0.24 ms [facility] Won RV Sensing Amplitude (mvolts) 2.0 mV [facility] Won RV Sensing Blanking Period (ms) 240 ms [facility] Implant Date 11/19/2023 [facility] Lower Rate (bpm) 70 {beats}/min [facility] Max Sensor Rate (bmp) 120 {beats}/min [facility] Model [id number] Micra VR2 [facility] Pacing Mode VVIR [facility] PM-Device Mfg MDT [facility] PM-Percent Pacing (V) 99.17 % [facility] PM-Rate Modulation Acceleration Reaction 30 s [facility] PM-Rate Modulation ADL Rate (bpm) 95 {beats}/min [facility] PM-Rate Modulation Deceleration Exercise [facility] PM-Rate Modulation [place] 3 [facility] RV Bipolar Impedance ohms 440 ohm [facility] Serial Number [id number] [facility] Thresh RV Capture Amplitude (volts) 0.63 V [facility] Thresh RV Capture Duration (ms) 0.24 ms [facility] PM remote interrogat ion. Presenting EGM shows MANOMETER TECHNICIAN @ 75 ppm. Interrogation shows no new observations since last check. Electrode impedance and sensing measurements stable. Battery voltage stable. Recommended replacement time is >10 years. [facility] CVT NOTE TO PROVIDERS: "CARD" Flowsheets contain detailed device programming and testing data. Paceart/Interrogation PDF can be found under CARDIAC DATA AND REPORT, "Scanned Documents" section. PACE[facility] 09/29/2024 Formattin g of this note might be different from the original. PM remote interrogation. Presenting EGM shows MANOMETER TECHNICIAN @ 75 ppm. Interrogation shows no new observations since last check. Electrode impedance and sensing measurements stable. Battery voltage stable. Recommended replacement time is >10 years. [facility] CVT NOTE TO PROVIDERS: "CARD" Flowsheets contain detailed device programming and testing data. Paceart/Interrogation PDF can be found under CARDIAC DATA AND REPORT, "Scanned Documents" section. [facility] CNOVon 09-15-2024 CNOV Office Visit (CAWSTR ) SHAYNAAMALIA ([id number]) 1950 F Date Time Provider Department 09/15/24 2:20 PM LIZA ORTIZ [facility] During your visit today, we recorded the following information about you: Pulse Blood pressure Weight 75/minute 120/70 66.2 kg Liza Ortiz MD 09/15/2024 2:45 PM Signed [facility] Cardiology ([address]) [address] [facility] [id number] OUTPATIENT VISIT DATE 09/15/2024 PRIMARY CARE PHYSICIAN: Rajat Patel (John) [address] [place] [address] HISTORY OF PRESENT ILLNESS: Ms. Corral is a 74 year old pleasant woman with a history of coronary artery disease with complex intervention of the LAD and RCA in June 2023, mitral valve and tricuspid valve regurgitation, paroxysmal atrial fibrillation, history of AV node ablation with pacemaker placement, hypertension, dyslipidemia who is here today for routine follow-up. According to her daughter, she has been doing well. They have noticed improvement in her functional capacity since she underwent coronary intervention. She has not had chest pain, chest pressure, or dyspnea on exertion. She has not had symptoms concerning for congestive heart failure including PND, orthopnea, or lower extremity edema. PAST MEDICAL HISTORY Diagnosis Date Acute rheumatic heart disease, unspecified Aortic valve insufficiency Atrial fibrillation (HCC) Diabetes mellitus type 2 in obese 03/2012 Heart disease, rheumatic History of PTCA 06/01/2023 LAD AND RCA Hyperlipemia Hypertension Hypothyroid Mitral valve regurgitation Osteopenia Pulmonary hypertension (HCC) Unspecified vitamin D deficiency 10/15/2008 Vit D level 10/09: 15.7, started weekly Vitamin D. PAST SURGICAL HISTORY Procedure Laterality Date AV YESSICA ABLATION 11/19/2023 With Micra implant; Dr. Strong at [facility] CARDIOVERSION x2 CHOLECYSTECTOMY 10/01/1982 Cholecystectomy MICRA AV LEADLESS PACEMAKER 11/19/2023 With AVN catheter ablation; Dr. Strong at [facility] PERCUTANEOUS CORONARY INTERVENTION 06/01/2023 LAD AND RCA TOTAL ABDOMINAL HYSTERECT W/WO RMVL TUBE OVARY 10/01/1975 Hysterectomy, ALY SOCIAL HISTORY Social History Tobacco Use Smoking status: Former Current packs/day: 0.00 Average packs/day: 1.5 packs/day for 15.0 years (22.5 ttl pk-yrs) Types: Cigarettes Start date: 10/01/1974 Quit date: 10/01/1989 Years since quittin.9 Smokeless tobacco: Never Substance Use Topics Alcohol use: Yes Comment: rarely Drug use: No FAMILY HISTORY Problem Relation Age of Onset None Father unknown health Stroke Mother POLYCYSTIC KIDNEY DISEASE,HEART DISEASE ,HYPERTENSION Hypertension Mother Heart Mother ? None Maternal Grandfather black lung other (polycystic kidney disease) Brother Breast Cancer Maternal Aunt Cancer Maternal Aunt leukemia Heart Brother AF None Sister Ischemic Heart Disease Brother [place] 66 ALLERGIES: ALLERGIES Allergen Reactions Marco Inhibitors Cough Losartan Potassium Rash At higher doses (ok at low dose) MEDICATIONS: FARXIGA 10 mg tablet Take 10 mg by mouth once daily. losartan (COZAAR) 25 mg tablet Take 25 mg by mouth once daily. metoprolol tartrate, short acting, (LOPRESSOR) 50 mg tablet Take 50 mg by mouth two times a day. acetylcysteine (NAC) 600 mg capsule Take 600 mg by mouth two times a day. cholecalciferol (VITAMIN D3) 5,000 unit tab Take 5,000 Units by mouth once daily. BASAGLAR KWIKPEN U-100 INSULIN 100 unit/mL (3 mL) INJECT 6 UNITS SUBCUTANEOUSLY TWICE DAILY donepezil (ARICEPT) 10 mg tablet Take 10 mg by mouth daily at bedtime. sertraline (ZOLOFT) 50 mg tablet Take 75 mg by mouth once daily. risperiDONE (RISPERDAL) 1 mg tablet Take 1 mg by mouth as needed. clopidogrel (PLAVIX) 75 mg tablet Take 1 tablet by mouth once daily pravastatin (PRAVACHOL) 20 mg tablet metFORMIN (GLUCOPHAGE) 500 mg tablet Take 1,000 mg by mouth twice daily with meals. nitroglycerin sublingual (NITROQUICK) 0.4 mg SL tablet Dissolve 1 tablet under the tongue every 5 minutes as needed for chest pain. cyanocobalamin (VITAMIN B-12) 1,000 mcg tab Take 1,000 mcg by mouth once daily. Levothyroxine 25 mcg cap Take 25 mcg by mouth once daily. apixaban (ELIQUIS) 5 mg tab tab(s) Take 1 tablet by mouth twice daily. metoprolol succinate ER (TOPROL XL) 50 mg 24 hr tablet Take 50 mg by mouth two times a day. (Patient not taking: Reported on 09/15/2024) furosemide (LASIX) 20 mg tablet Take 20 mg by mouth once daily. (Patient not taking: Reported on 09/15/2024) insulin detemir (LEVEMIR) 100 unit/mL injection Inject 8 Units subcutaneously once daily. In the morning (Patient not taking: Reported on 09/15/2024) REVIEW OF SYSTEMS: Review of System (more content not included)... Normal [facility] CT CERVICAL SPINE WO CONTRAS Ton 08-31-2024 CT CERVICAL SPINE WO CONTRAST CT CERVICAL SPINE WO CONTRAST HISTORY: Neck trauma (Age >= 65y) fall COMPARISON: None TECHNIQUE: Axial CT images with coronal and sagittal reconstructions of the cervical spine NOTE: If there are questions about the content of this report, please contact [facility] radiology by calling [phone] FINDINGS: ALIGNMENT: Unremarkable BONES: Unremarkable. No aggressive osseous lesion or fracture SOFT TISSUES: Unremarkable DISC LEVELS: Mild to moderate multilevel disc space loss with associated degenerative endplate changes. FACET JOINTS: Normal alignment maintained. Mild to moderate multilevel facet arthrosis. OTHER: None IMPRESSION: Mild to moderate degenerative change of the cervical spine without acute fracture or malalignment. SIGNED BY: Pedro Myers on 08/31/2024 11:[address] [facility] Imaging Report - Main Call Center - [facility] Call Center: Normal [facility] CT HEAD WO CONTRASTon 2023 CT HEAD WO CONTRAST CT HEAD WO CONTRAST HISTORY: Head trauma, moderate-severe fall, hit head COMPARISON: None TECHNIQUE: Noncontrast multiplanar CT images of the head NOTE: If there are questions about the content of this report, please contact [facility] radiology by calling [phone] FINDINGS: BRAIN PARENCHYMA: No intraparenchymal hemorrhage or mass. Moderate patchy low-attenuation throughout the periventricular white matter and basal ganglia. Martino-white matter differentiation is maintained. VENTRICLES/SULCI: Mild diffuse proportionate dilation of ventricles and sulci, consistent with age-related volume loss. No hydrocephalus EXTRA-AXIAL SPACES: Unremarkable PARANASAL SINUSES/MASTOIDS: Unremarkable BONES: Unremarkable OTHER: None IMPRESSION: No acute intracranial abnormality Moderate periventricular white matter disease, likely related to chronic small vessel ischemia SIGNED BY: Pedro Myers on 08/31/2024 11:[address] [facility] Imaging Report - Main Call Center - [facility] Call Center: Normal [facility] ED PROV NOTEon 08-31-2024 ED PROV NOTE Trekking Guide Authentication Interface Message Text [facility] EMERGENCY DEPARTMENT ED Encounter Arrival Date: 08/31/24 Feli6 Amalia Corral : 1950 No address on file. [facility]: [phone] [facility]: [phone] EMERGENCY DEPARTMENT - GENERAL NOTE ARRIVAL COMPLAINT NECK AND RIB PAIN DUE TO FALL CHIEF COMPLAINT Chief Complaint Patient presents with Fall Hand Injury Patient to the ED following a fall at home on Sunday. Patient's daughter reports patient fell out of bed, thinks she got her feet caught in the blanket and fell on the wooden floor. Unknown if the patient hit her head, daughter does not believe there was any LOC, but is concerned because the patients mentation has not been the same since last evening. Patient complains of left sided neck, ribs, and hip pain. Reports having known osteoporosis in the left hip, has been able to ambulate since. NATACHA Corral is a 74 year old female who presents with endorsed neck pain left rib pain left hip pain per daughter after a fall on Sunday as well as a small laceration to right first digit that occurred today PAST MEDICAL HISTORY Past Medical History: Diagnosis Date Alzheimer dementia (HCC) Congestive heart failure (CHF) (HCC) Coronary atherosclerosis Dementia (HCC) Diabetes mellitus type 2, controlled, without complications (HCC) Hypertension Osteoporosis Pulmonary hypertension (HCC) Renal disorder Rheumatic heart disease SURGICAL HISTORY Past Surgical History: Procedure Laterality Date *PACEMAKER CURRENT MEDICATIONS Prior to Admission medications Medication Sig Start Date End Date Taking? Authorizing Provider ibandronate (BONIVA) 150 MG TABS Take 150 mg by mouth every 30 (thirty) days. Yes HISTORICAL MED Acetylcysteine (NAC 600 PO) Take 600 mg by mouth 2 (two) times daily. Yes HISTORICAL MED losartan (COZAAR) 25 MG TABS Take 25 mg by mouth daily. Yes HISTORICAL MED cholecalciferol (VITAMIN D) 5000 units (125 mcg) TABS Take 5,000 units by mouth daily. Yes HISTORICAL MED vitamin B-12 (CYANOCOBALAMIN) 1000 MCG TABS Take 1,000 mcg by mouth daily. Yes HISTORICAL MED metFORMIN (GLUCOPHAGE) 500 MG TABS Take 1,000 mg by mouth 2 (two) times daily with meals. Yes HISTORICAL MED nitroGLYCERIN (NITROSTAT) 0.[address] 0.4 mg under the tongue every 5 (five) minutes as needed. Yes HISTORICAL MED levothyroxine (SYNTHROID, LEVOTHROID) 25 MCG TABS Take 25 mcg by mouth daily. Yes HISTORICAL MED clopidogrel (PLAVIX) 75 mg TABS Take 75 mg by mouth daily. Yes HISTORICAL MED apixaban (ELIQUIS) 5 mg tablet Take 5 mg by mouth 2 (two) times daily. Yes HISTORICAL MED dapagliflozin (FARXIGA) 10 mg tablet Take 10 mg by mouth daily. Yes HISTORICAL MED sertraline (ZOLOFT) 50 MG TABS Take 50 mg by mouth daily. Yes HISTORICAL MED pravastatin (PRAVACHOL) 20 MG TABS Take 20 mg by mouth daily. Yes HISTORICAL MED metoprolol tartrate (LOPRESSOR) 50 MG TABS Take 50 mg by mouth 2 (two) times daily. Yes HISTORICAL MED donepezil (ARICEPT) 10 MG TABS Take 10 mg by mouth at bedtime. Yes HISTORICAL MED Insulin Glargine (BASAGLAR KWIKPEN SC) Inject 6 units under the skin 2 (two) times daily. Yes HISTORICAL MED risperiDONE (RISPERDAL) 1 MG TABS Take 1 mg by mouth 2 (two) times daily. HISTORICAL MED ALLERGIES No Known Allergies FAMILY HISTORY History reviewed. No pertinent family history. SOCIAL HISTORY Social History Socioeconomic History Marital status: Tobacco Use Smoking status: Never Smokeless tobacco: Never Vaping Use Vaping status: Never Used Substance and Sexual Activity Alcohol use: Not Currently Drug use: Never Social Drivers of Health Financial Resource Strain: Low Risk (05/29/2023) Received from [facility] Overall Financial Resource Strain (CARDIA) Difficulty of Paying Living Expenses: Not hard at all Food Insecurity: No Food Insecurity (05/29/2023) Received from [facility] Hunger Vital Sign Worried About Running Out of Food in the Last Year: Never true Ran Out of Food in the Last Year: Never true Transportation Needs: No Transportation Needs (05/29/2023) Received from [facility] PRAPARE - Transportation Lack of Transportation (Medical): No Lack of Transportation (Non-Medical): No Housing Stability: Unknown (05/29/2023) Received from [facility] Housing Stability Vital Sign Unable to Pay for Housing in the Last Year: No Unstable Housing in the Last Year: No REVIEW OF SYSTEMS Constitutional: Negative for headache Musculoskeletal: Currently denies pain Skin: Negative for rash. Neurological: Negative for focal weakness All systems negative except as marked. PHYSICAL EXAM VITAL SIGNS: BP 107/67 (Patient Position: Semi-Fowlers) Pulse 71 Temp 98 F (36.7 C) (Oral) Resp 17 SpO2 98% Constitutional: Cooperative HENT: Normocephalic, Atraumatic, Bilateral external ears normal, Orophar (more content not included)... Normal [facility] XR CHEST PA AND LATERALon XR CHEST PA AND LATERAL XR CHEST PA AND LATERAL HISTORY: s/p mech fall onto L side s/p mechanical fall to left side COMPARISON: None NOTE: If there are questions about the content of this report, please contact [facility] radiology by calling [phone] FINDINGS: LINES/DEVICES: None LUNGS/PLEURA: Unremarkable HEART: Mildly enlarged. Radiodense device projects over the left heart MEDIASTINUM/CLIFTON: Tortuous thoracic aorta BONES: Unremarkable OTHER: None IMPRESSION: Mild enlargement of cardiopericardial silhouette. Cardiomegaly versus pericardial effusion Radiodense device projecting over the left heart SIGNED BY: Vanessa Jose on 08/31/2024 11:[address] [facility] Imaging Report - Main Call Center - [facility] Call Center: Normal [facility] XR HIP LEFT AP AND LAT W OR WO PELVISon 08-31-2024 XR HIP LEFT AP AND LAT W OR WO PELVIS XR HIP LEFT AP AND LAT W OR WO PELVIS HISTORY: L hip pain s/p fall left hip pain s/p fall COMPARISON: None NOTE: If there are questions about the content of this report, please contact [facility] radiology by calling [phone] FINDINGS: BONES: Unremarkable. No acute displaced fracture or aggressive osseous lesion JOINTS: Osteoarthritic changes involve both hips with prominent osteophyte formation and mild to moderate joint space loss. Degenerative findings also seen lower lumbar spine incompletely assessed. SOFT TISSUES: Unremarkable OTHER: None IMPRESSION: No definite acute osseous process seen. If there is continued clinical concern for subtle injury, such as significant pain, CT or MRI could be utilized for additional evaluation. Osteoarthritic changes. If additional evaluation is sought, particularly in relation to internal derangement, MRI could be used for further evaluation. SIGNED BY: Sal Hughes on 08/31/2024 11:[address] [facility] Imaging Report - Main Call Center - [facility] Call Center: Normal [facility] Inital Evaluation (1) - PTon 08-22-2024 Inital Evaluation (1) - PT [facility] Physical Therapy [facility] [address] [place] [address] [address] [place] [address] / REHABILITATION SERVICES INITIAL EVALUATION MR#: [id number] Acct: [id number] Name: AMALIA CORRAL Rep #: [id number] : 1950 73 From: Rajat Khan DPT, OCS, CSCS Referring Dr.: TAYLOR Wilkins Status: REG RC R Insurance: MEDICARE PART A B [facility] Patient's Visit Information Visit Information Visit Information: AMALIA CORRAL is a 73 year old F referred to Physical Therapy by TAYLOR Wilkins with a diagnosis of OP. Date of Evaluation: 08/22/24 Physical Therapist: Rajat Khan DPT, OCS, CSCS Visit Plan Frequency: 2x /Week Duration: 4-6 Weeks Plan: up to 2x/week after doing HEP daily at home with during Thanksgiving trip to educate and progress HEP for... 1. walking with wh walker 2x/day 2. WB exercises to spine adn LE for OP and strength 3. stretch HS and progress ex. Pt will do husbands ex adn attempt to walk 2x/day to tolerance for next two weeks then f/u to perform HEP which she willbring with her and check on walking and ex for completeness and progress and change as needed. Decide next session of frequency form that point based on HEP tolerance and compliance. Subjective Subjective: Dtr present. Had a bone scan for MCR review check and has some hip and leg pain. she has Osteoporosis in hips L >R. Feels weakness in L hip to pull it in car. No falls then dtr says fell labor day that patient does not remember. That was at a small step to get in but did not hit the ground(hands were full) No cane or walker but has a cane. Sleeps well without interruption, some back pain. Lives wth dtr for year and a half on lower level. 2 steps to enter. Basic ADLs dressing, bathroom and shower I, then dtr says needs help washing areas. Walk in shower. Has safety bars. Spends day watching TV, goes to [employer] 2x/week for social. Not consistently exercising. Feels like hard work to walk to mailbox and might get SOB. Not walked to mailbox in > 1 yr. Pacemaker adn stents a year ago set her back. Not employed. Hobbies cleaning house. Pain L hip: Pain Intensity (Out of 10): 2 Objective Objective: Walks mildly hunched over and looking down into PT I, slow and tends to short steps. 2x150 feet adn limited by slight SOB but mostly back pain, gone with sitting. Sit to stand without UE I, bed trasnfer I. Steps are reciprocal when cued wiht one railing up and two descending. Weakness obbvious in hips. Core strength 3/5 and unstable with LE seated testing. Hip strength 3/5 abd and extension and flexion. Knee flexion/extension 4-, ankles 4/5. Good coordination on reciprocal toe and heel tap. reflexes 2/3 patella and achilles B Sensation LE WNL to gross light touch. Flexibility is tight in HS at -25 90/90 test B can stand up tall and take long steps with VC but tendency is hunched and short steps Balance/Special Test Scores Functional Gait Assessment Score: 22 % Disability: 26.6700 CATSIB Score (Max score 120 seconds): 100 Lower Extremity Functional Score: 25 Goals Goal 1:: FGA / to redue fall risk. Goal Time Frame: 4-6 Weeks Goal 2:: I appropriate HEP for general strength, WB walking and ex for OP, posture and core/LE strength Goal Time Frame: 4-6 Weeks Goal 3:: Pt feel 50% better in mobiltiy Goal Time Frame: 4-6 Weeks Goal 4:: walk 800 feet without limitations due to back pain Goal Time Frame: 4-6 Weeks Goal 5:: LEFS 45 Goal Time Frame: 4-6 Weeks Rehabilitation Potential Physical Therapy Diagnosis: sedentary and weak limiting mobility and strength limting comfortable funciton. Rehabilitation Potential: Fair Anticipated Interventions Patient/Client Instruction: Educate patient on: Condition and Plan of Care For the Purpose of:: To decrease pain, To improve nutrient delivery to tissue, To improve muscle performance and motor function and To increase tolerance to activity/condition/position Therapeutic Exercise to Include: Strength training, Postural training, Flexibilty training, Gait and locomotor training, Passive ROM and Active ROM For the Purpose of:: To decrease pain, To increase ROM, To improve nutrient delivery to tissue, To improve muscle performance and motor function, To increase tolerance to activity/condition/position , To increase flexibility/ROM and To improve safety Text: Thank you for the opportunity to evaluate your patient. For Medicare and Medicare HMO plans, please review the plan of care and approve it. It will need to be FAXED BACK to us at [phone] for Medicare purposes. For Medicare only, by signing this I certify the plan of care. Please let me know if there are questions or concerns regarding this plan of care. Physician Signature: Date: (more content not included)... Normal [facility] Lipid Profileon 08-13-2024 Cholesterol [Mass/Vol] 157 mg/dL Normal 200 [facility] Comment on above: Result Comment: <200 mg/dL Desirable 200-240 mg/dL Borderline >240 mg/dL High Risk Performed By: #### L 500.3400, L500.4100 #### [facility] [address] [place], [address] Cholesterol in HDL [Mass/Vol] 60 mg/dL Normal [facility] Comment on above: Result Comment: The drugs N-Acetylcysteine and Metamizole may falsely depress this assay. Reference Range HDL <40 mg/dL Low HDL Cholesterol HDL >or= 60 mg/dL High HDL Cholesterol Performed By: #### L 500.3400, L500.4100 #### [facility] [address] [place], [address] Cholesterol in LDL [Mass/Vol] 57 mg/dL Normal 0-130 [facility] Comment on above: Performed By: #### L 500.3400, L500.4100 #### [facility] [address] [place], [address] Cholesterol in VLDL [Mass/Vol] 40 mg/dL Normal 5-40 [facility] Comment on above: Performed By: #### L 500.3400, L500.4100 #### [facility] [address] [place], [address] Triglyceride [Mass/Vol] 201 mg/dL High [facility] Comment on above: Result Comment: The drugs N-Acetylcysteine and Metamizole may falsely depress this assay. Serum Triglycerides Reference Interval Normal <150 mg/dL Borderline high 150 - 199 mg/dL High 200 - 499 mg/dL Very High > or = 500 mg/dL Performed By: #### L 500.3400, L500.4100 #### [facility] [address] [place], [address] Liver Profileon 08-13-2024 Albumin [Mass/Vol] 3.7 g/dL Normal 3.2-5.0 [facility] Comment on above: Performed By: #### L 500.3400, L500.4100 #### [facility] [address] [place], [address] ALK P 73 U/L Normal 45-117 [facility] Comment on above: Performed By: #### L 500.3400, L500.4100 #### [facility] [address] [place], [address] ALT [Catalytic activity/Vol] 20 U/L Normal 13-56 [facility] Comment on above: Performed By: #### L 500.3400, L500.4100 #### [facility] [address] [place], [address] AST [Catalytic activity/Vol] 17 U/L Normal 15-37 [facility] Comment on above: Performed By: #### L 500.3400, L500.4100 #### [facility] [address] [place], [address] Bilirubin [Mass/Vol] 0.30 mg/dL Normal 0.20-1.00 [facility] Comment on above: Result Comment: For patients on eltrombopag therapy, use of Dimension [place] TBIL is not recommended. Performed By: #### L 500.3400, L500.4100 #### [facility] [address] [place], [address] Bilirubin.direct [Mass/Vol] 0.09 mg/dL Normal 0.00-0.30 [facility] Comment on above: Performed By: #### L 500.3400, L500.4100 #### [facility] [address] [place], [address] Globulin (S) [Mass/Vol] 4.2 g/dL Normal 2.2-4.2 [facility] Comment on above: Performed By: #### L 500.3400, L500.4100 #### [facility] [address] [place], [address] T PROT 7.9 g/dL Normal 6.4-8.2 [facility] Comment on above: Performed By: #### L 500.3400, L500.4100 #### [facility] [address] [place], [address] Vitamin D,25 Hydroxyon 08-13 Vitamin D 25-OH 24.2 ng/mL Normal [facility] Comment on above: Order Comment: Order Date: 08/13/24 Order Info: [id number] - [id number] Result Comment: Constance min D 25(OH) Status Range Deficiency <20 ng/mL (50nmol/L) Insufficiency 20 - 30 ng/mL (50 - 75 nmol/L) Sufficiency 30 - 100 ng/mL (75 - 250 nmol/L) Toxicity >100 ng/mL (>250 nmol/L) Performed By: #### L 506.1000 #### [facility] [address] [place], [address] Office Visiton 08-12-2024 Follow-up visit [id number] José Antonio Corral 1950 F Date Provider Department Center 08/12/2024 12522-NSUUZIVANNA ESCUDERO [facility] None Family History Problem Relation Age of Onset Hypertension Mother Kidney failure Mother Heart disease Mother No Known Problems Father Heart disease Brother Family Status - Relation Status Age at Mother Father Brother Level of Service:13340 [place] OFFICE/OUTPATIENT ESTABLISHED HIGH MDM 40 MIN Reason for Visit and Comments: Memory Loss [66] Normal [facility] Progress Noteon 08-12-2024 Progress Note Review of Systems Constitutional: Positive for fatigue. Negative for appetite change. HENT: Positive for dental problem. Negative for hearing loss and trouble swallowing. Eyes: Negative for visual disturbance. Gastrointestinal: Negative for constipation and diarrhea. Genitourinary: Negative for difficulty urinating and dysuria. Musculoskeletal: Positive for arthralgias, back pain and gait problem. Neurological: Negative for tremors, speech difficulty and weakness. Psychiatric/Behavioral: Positive for agitation, confusion and hallucinations. Negative for dysphoric mood and sleep disturbance. The patient is nervous/anxious. Normal [facility] Progress Note [facility] [address] [facility] [address] Dept: [phone] Dept Loc: [phone] Visit type: [facility] Follow Up Visit Reason for Visit: Memory Loss Visit Date: 08/12/2024 Assessment and Plan 1. 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 Anger - sertraline (Zoloft) 50 MG tablet; TAKE 1.5 TABLETS BY MOUTH DAILY, Normal - Cognitive testing was stable compared to last testing in 12/2023. - Remains in moderate stage - Continue donepezil 10 mg daily for memory loss but switch to AM dosing due to vivid dreams. Tolerating current dose of medication. Will continue to follow along with medication and adjust PRN. - For anger, increase Sertraline to 75 mg daily. Pt is having increased anger/agitation towards hsbd in the evening. No safety issues at this time. Briefly discussed additional medication options (such as Mirtazapine, Trazodone or antipsychotics) if agitation escalates. Will continue to follow along at future visits. - Continue non-pharmacologic interventions for memory - Has adequate supervision over 5 Ms - F/u in 6 months for routine visit/memory testing Follow up in about 6 months (around 02/09/2025). Subjective HPI: Amalia Corral is a 73 y.o. female who presents to the [facility] for a follow-up visit. The patient is known to me. Established pt, initially seen in 03/2023, diagnosed with early moderate Alzheimer's disease in 07/2023. Last testing done in 12/2023- [place] 13 (MIS 2), CDT 5. Last seen in 03/2024- continued donepezil, started sertraline for mood/anger/crying episodes. History obtained from caregiver(s): Pt is here with her dtr Rick. Memory- Slow progressive decline in short term memory over the past few months since last visit in 03/2024. Function- Going to [facility] twice per week. Pt needs direct in the shower and someone there for safety. Personal care- gets agitated when dtr asks her to take a shower sometimes. Pt is wearing depends during the day and at night now. Increased urinary incontinence while she's sleeping or taking a nap. Safety issues- Had a fall on . No injuries. No other falls. No kitchen safety issues. Pt will help wash dishes and prep food with dtr. No wandering outside the home. Mood/behaviors- Still has some picking/scatching. Behaviors- gets upset with hsbd in the evening. Will throw the TV remote sometimes. Not happening often. Appetite- Good. Has lost some weight because she's been more active and eating healthy. Sleep- Gets up a few times to go to the bathroom. Sometimes has bad dreams, paranoid. Advanced directives: Power of Marketing Strategy Manager- completed but NOT scanned into Epic Living Will- completed and scanned into Epic DNR- not discussed today History obtained from patient: Doing well. Not having pain. Mood- good, better than it was." Not feeling depressed or anxious. Sleep- no issues. Appetite- too good." Reviewed progress notes completed by ANMOL (KARINE) and social work. Allergies Allergen Reactions Marco Inhibitors Cough Losartan Rash Current Outpatient Medications Medication Sig Dispense Refill Acetylcysteine (NAC) 600 MG capsule capsule Take 600 mg by mouth in the morning and 600 mg in the evening. One tablet by mouth twice daily. apixaban (Eliquis) 5 MG tablet Take 5 mg by mouth 2 times daily. Take one tablet by mouth twice daily clopidogrel (Plavix) 75 MG tablet Take 75 mg by mouth daily. cyanocobalamin (Vitamin B-12) 1000 MCG tablet Take 1,000 mcg by mouth daily. Take one tablet by mouth daily dapagliflozin (Farxiga) 10 MG tablet Take 10 mg by mouth daily. One tablet by mouth once daily donepezil (Aricept) 10 MG tablet Take 1 tablet (10 mg) by mouth daily. 90 tablet 1 insulin detemir (Levemir) 100 UNIT/ML injection Inject 8 Units under the skin Nightly. levothyroxine (Synthroid, Levoxyl) 25 MCG tablet Take 25 mcg by mouth every morning (before breakfast). Take one tablet by mouth daily losartan (Cozaar) 25 MG tablet Take 25 mg by mouth daily. One tablet by mouth once daily metFORMIN (Glucophage) 500 MG tablet Take 1,000 mg by mouth in the morning and 1,000 mg in the evening. Take with meals. metoprolol tartrate (Lopressor) 50 MG tablet Take 50 mg by mouth 2 times daily. Take one tablet by mouth twice daily nitroglycerin (Nitrostat) 0.[address] 0.4 mg under the tongue every 5 minutes as needed for chest pain. sertraline (Zoloft) 50 MG tablet TAKE 1.5 TABLETS BY MOUTH DAILY 135 tablet 1 [employer] Short Pen [place] 31G X 8 MM [facility] No current facility-administered medications for this visit. Past Medical History: Diagnosis Date A (more content not included)... Normal [facility] Progress Note [facility] Social History Present at visit: patient, daughter- Rick Marital status: Children: 3 children (1 local) Living arrangement: patient and spouse lives with daughter Rick >>01/29/24 same >>08/12/24 same Household safety problems: none >>01/29/24 burned pop-tart in microwave >>08/12/24 one fall, no injury, Concerning Behaviors: Hallucinations during hospital stay/UTI >>01/29/24 none Wandering potential: No >>01/29/24 no >>08/12/24 no Pets: No Guns in the home: None Elder abuse: No/Denied Concerns >>01/29/24 no Alcohol/Tobacco/Marijuana/D rug Use History: none service: Spouse was a [place] ([place]) Highest level of education: 11th grade 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 Activities: exercise video 30 min/day, prep food for meals, journaling, cleaning, friends/family visting, talks on phone daily with friends >>01/29/24 cleaning, gets together with friends, goes to [employer] to shop >>08/12/24 Adult Day Program 2 days, will have friends come to visit Exercise: exercise 30 min/day Finances: has savings, over $2000, SS income $1900 Healthcare Power of Marketing Strategy Manager: Yes: mode Cabrera Financial Power of Marketing Strategy Manager: Yes: mode Cabrera Living Will: Yes Guardian: No Code Status: Full Code Primary Caregiver: mode Cabrera Current care plan/supervision: >>01/29/24 daughter with them most of the time, has someone stay if going to be gone, can leave a few hours >>08/12/24 daughter with patient most of the time if patient not at Adult Day Program Community resources: None >>01/29/24 video monitoring >>08/12/24 on [employer] now, Adult Day Program 2 days per week, video monitoring Caregiver stressors: some caregiver stress due to medical needs of both patient and spouse >>01/29/24 daughter denies too much stress >>08/12/24 daughter managing stress better since [employer] services started Goals for care: evaluate memory, keep patient at home with daughter As a Caregiver, What Matters Most to You: Increase understanding of community resources >>04/24/23 Patient and had been living in [place] with another one of their children. Has moved here 5 weeks ago. Getting lost driving. Daughter Rick noticed that patient is having memory issues and having confusion. Had a hospitalization due to low heart rate, very confused in the hospital. Rick is having some stress due to caregiving for both patient and patient's spouse- both having much medical issues. >>01/29/24 Patient having some slight decline on memory test today. Daughter continues to be main caregiver for patient and spouse. Daughter denies too much caregiver stress. Daughter is considering taking patient and spouse to Adult Day Program to get them engaged in activities. SW gave some tips on how to approach that- encouraged her to try in order to give her some respite. No resources given today. >>08/12/24 Patient now has Passport services, patient and spouse are going to Adult Day Program 2 days per week, may increase days in the future. SW talked to daughter about all the services that [employer] can provide, aides, Depends, medical equipment, respite stays at facilities. [facility] these things. Patient staying stable on memory test today; daughter noticing some slight decline in function. SW encouraged daughter to bring in Healthcare Power of Marketing Strategy Manager and living will so that we can scan into patient's chart. No resources given today. Functional Status (I: Independent, A: Assisted, D: Dependent) ADLs I A D Notes Bathing [] [] [x] Needs reminders/cuing, shower set up. >>01/29/24 same >>08/12/24 needs hands on help Dressing [] [] [x] Would wear the same clothes if not cued >>01/29/24 will put clean clothes in laundry, daughter cues her to change clothes >>08/12/24 hands on help with dressing Toileting [] [x] [] No issues >>01/29/24 puts too much toilet paper in toilet, clogging toilet, goes through 3 rolls in 2 days >>08/12/24 wearing Depends all the time now, keeps taking of Depends Transfers [x] [] [] No issues >>01/29/24 with some difficulty Feeding [] [x] [] No issues >>01/29/24 unable to cut meat anymore >>08/12/24 same Ambulation [] [] [] Has a walker, not always using it Assistive devices: Cane, Raised toilet seat, Shower chair, and Walker IADLs I A D Telephone [] [x] [] Has a cell phone that she shares with spouse, can call and answer, sometimes needs some help using the phone, daughter sets up own appointments, needs reminders, was missing appointments >>01/29/24 same >>08/12/24 can call someone who just called her, harder to find contacts on phone, needs assistance Transportation [] [] [x] Driving safety concerns: Not currently driving, was driving until she came here, daughter keeping keys until she knows if she can drive or not >>01/29/24 no driving Shopping [] [] [x] Patient goes with daughter, could follow a li (more content not included)... Normal [facility] Dexa Bone Density Studyon Dexa Bone Density Study [facility] [address] [place], [place] [id number] Dexa Bone Density Study MR#: [id number] Acct: [id number] Name: AMALIA CORRAL AISSATOU Rep #: [id number] : 1950 F 73 From: Andrey cross MD PCP: Dr. Rajat Patel MD Status: [facility] Study: Dexa Bone Density Study Date of Exam: 07/30/24 Exam# [id number] Ordering Dr: Sary Robledo FIRST LINE SUPERVISOR FIRST LINE SUPERVISOR-C [id number] STUDY: DUAL ENERGY X-RAY ABSORPTIOMETRY / DXA REASON FOR EXAM: Female, 73 years old. 733.00OsteoporosisBONE DENSITY REASON FOR EXAM TECHNIQUE: Bone Mineral Density (BMD) measurements of lumbar spine and bilateral hips were obtained. COMPARISON: Comparison is made with prior study February 21, 2018. FINDINGS: Lumbar Spine (L1-L4): g/cm2 (0.949) / T-score (-0.9) / Z-score (1.6) Findings are suggestive of normal bone density with a low fracture risk. Left Femur Total: g/cm2 (0.655) / T-score (-2.4) / Z-score (-0.5) Left Femoral Neck: g/cm2 (0.568) / T-score (-2.5) / Z-score (-0.4) Right Femur Total: g/cm2 (0.695) / T-score (-2.0) / Z-score (-0.2) Right Femoral Neck: g/cm2 (0.633) / T-score (-1.9) / Z-score (0.2) The T-Scores on the most recent prior examination were: Lumbar Spine (L1-L4): There has been worsening of bone density since the previous examination. Left Femur Total: which represents a worsening of 21.8. Right Femur Total: which represents a worsening of 15.2%. BD/Dexa Bone Density Study IMPRESSION: The patient is considered osteopenic as outlined below according to [employer] [place] [employer] (WHO) criteria with a high fracture risk. There has been worsening of bone density since the previous examination. Reference Information: The T-score is the number of standard deviations above or below the standard which is normal for young adults at their peak bone mineral density. The World Health Organization (WHO) interprets the T-scores as follows: Above -1 Normal bone density Between -1 and -2.5 Osteopenia Equal to / or below -2.5 Osteoporosis As a practical clinical guideline, osteopenia may be graded as follows: Mild -1 through -1.5 Moderate -1.6 through -2.0 Severe -2.1 through -2.4 The Z-score is the number of standard deviations above or below age-matched controls. A Z-score of less than -1.5 would be considered abnormal. References: 1. NIH Osteoporosis and Related Bone Diseases www osteo.org 2. International Society for Clinical Densitometry www iscd.org 3. National Osteoporosis Foundation www nof.org Electronically Signed: Andrey Berry MD at 10:18 EST , CC: TAYLOR Robledo; Dr. Rajat Patel MD Hay Stacker Operator: Signed Normal [facility] 07-03-2024 CNPN Telephone (CAWSTR) AMALIA CORRAL ([id number]) 1950 F Date Time Provider Department 07/03/24 LIZA ORTIZ CAWSTR During your visit today, we recorded the following information about you: Ciera Bennett MA 07/03/2024 4:55 PM Addendum Pts daughter calling to inform provider that pt had ECHO dont 06/23 at [facility] and they are telling her that it is worse and that she needs a GISELE. She saw [facility] inadvertently. Pt has dementia and the appt was on the books without the daughters knowledge apparently. ECHO, EKG, and consult obtained from [facility] and scanned into [employer]. Dr. Ortiz will review on Sunday while here at [place] site. ANMOL Buchanan Laurie, MA 07/07/2024 4:[address] Ortiz. They were already aware of the mitral valve regurgitation. It is up to the family if they want her to be more fully evaluated with GISELE. He is unsure what benefit it would provide since she is not likely a surgical candidate. Can discuss in more detail at August office visit. ANMOL Buchanan Laurie, MA 07/08/2024 4:29 PM Signed Pt's daughter notified of providers response. She verbalized understanding and is leaning toward not pursuing the GISELE. Will keep Dec appt and call in the interim with any concerns. Ciera Bennett MA Allergies As of Date: 07/03/2024 Noted Allergy Reaction MARCO INHIBITORS 04/05/2009 3 - Cough LOSARTAN POTASSIUM 11/24/2014 2 - Rash Comments: At higher doses (ok at low dose) Date Reviewed: 01/07/2024 Reviewed by: Liza Ortiz MD - Fully Assessed Reason for Visit: Patient Update [1234] Results [95] Prescriptions as of 07/08/2024 - metoprolol succinate ER (TOPROL XL) 50 mg 24 hr tablet Take 50 mg by mouth two times a day. - pravastatin (PRAVACHOL) 20 mg tablet - clopidogrel (PLAVIX) 75 mg tablet Take 1 tablet by mouth once daily. - metFORMIN (GLUCOPHAGE) 500 mg tablet Take 1,000 mg by mouth twice daily with meals. - nitroglycerin sublingual (NITROQUICK) 0.4 mg SL tablet Dissolve 1 tablet under the tongue every 5 minutes as needed for chest pain. - cyanocobalamin (VITAMIN B-12) 1,000 mcg tab Take 1,000 mcg by mouth once daily. - furosemide (LASIX) 20 mg tablet Take 20 mg by mouth once daily. - Levothyroxine 25 mcg cap Take 25 mcg by mouth once daily. - insulin detemir (LEVEMIR) 100 unit/mL injection Inject 8 Units subcutaneously once daily. In the morning - apixaban (ELIQUIS) 5 mg tab tab(s) Take 1 tablet by mouth twice daily. Meds Comments as of 11/24/2014: Fish oil 1200 mg a day Problem List As Of Date 07/03/2024 Noted Resolved Osteopenia [M89.9, M94.9] 07/20/2006 HYPERPARATHYROIDISM NOS [E21.3] 01/01/2007 INGROWING NAIL [L60.0] 08/23/2007 10/15/2008 DERMATITIS NOS [L25.9] 10/11/2007 10/15/2008 CELLULITIS, TOE NOS [L03.039, L02.619] 11/06/2007 10/15/2008 LUMBAGO [M54.50] 09/28/2008 Essential hypertension [I10] 09/28/2008 VITAMIN D DEFICIENCY NOS [E55.9] 10/15/2008 Diabetes (HCC) [E11.9] 12/21/2014 Persistent atrial fibrillation (HCC) [I48.19] 03/27/2016 01/04/2024 Fatigue [R53.83] 03/27/2016 Pulmonary HTN (HCC) [I27.20] 03/14/2017 Chest pain [R07.9] 05/29/2023 01/04/2024 Elevated troponin [R79.89] 05/29/2023 Coronary artery disease involving andreafski morgan*05/29/2023 At risk for delirium [Z91.89] 05/29/2023 Unstable angina (HCC) [I20.0] 05/29/2023 01/04/2024 Permanent atrial fibrillation (HCC) [I48.21] 05/29/2023 Malnutrition of moderate degree (HCC) [E44.0] 05/30/2023 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] 05/30/2023 Hyperlipidemia [E78.5] 06/01/2023 Chronic atrial fibrillation (HCC) [I48.20] 06/01/2023 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 states heart doctor started 2 new medications since last visit but she doesn't feel that's the issue with how obsessive she is with it. Daughter Has noticed bumpy areas but she isnt sure if its from her rubbing on her skin so much prior to her tearing the skin open. but also stated they were out of their normal laundry soap that she uses so she grabbed tide and didn't think that would be an issue but she will go back to the store to grab the previous soap used along with the loratadine and will follow back up on Sunday if no changes are seen. [facility] 36 Please advise dtr of the following: - I would recommend that pt starts taking OTC loratadine or similar product to see if itching improves. I would NOT try benadryl because this can increase risk of falls and confusion. - If the OTC allergy medicine doesn't help, I can start a medicine called hydroxyzine at a very low dose to avoid excessive sedation. - Is the dtr able to identify a trigger for the itching? Any new detergents or skin care products? Any new medicines or supplements since our last visit? Any rash associated with the itching? [facility] [facility]: Dtr Rick calling [facility] for pt w/ itching B: Months; YASMANI 04/29/24; NOV 08/12/24 A: Dtr reports pt w/ excessive scratching & picking at her skin. States she has ripped skin open to her arms and back. Dtr states she talked to [facility] re: sx last visit but is getting worse. Dtr asking for medication for her sx. Dtr concerned that pt keeps damaging her skin & has hx of DM. States she has tried the cristina gloves as advised and pt removes them. Dtr has also kept pt's nails short and layers her clothing & placed clothes backwards but pt removes. Dtr also takes pt to adult daycare twice a week to help distract pt. Also reports pt being more alert lately but behavior is obsessive/compulsive. R: Informed dtr that RN will send TE to provider for recommendation & office will call back to advise. Reason for Disposition Itching is a chronic symptom (recurrent or ongoing AND present > 4 weeks) Protocols used: Itching - [id number]-CI [facility] Echo Completeon 06-23-2024 Echo Complete [facility] [address] [place] [address] Echo Complete 06/23/24 1355 MR#: [id number] Acct: [id number] Name: AMALIA CORRAL AISSATOU Rep #: [id number] : 1950 73 From: Sharon Wynn MD Attending Dr: Dr. Sharon Wynn MD Status: REG CLI Ordering Dr: Sharon Wynn MD Date: 06/23/24 Location: [facility] Sex: F C Admitted: Reason For Study: CHF, AFib/Flutter Procedure This was a 2D Doppler, Color Flow transthoracic echocardiogram. Exam performed in department. Left Ventricle Mild to moderate LV concentric hypertrophy. Mildly dilated left ventricle. Dyssynchronous LV wall motion. Estimated LVEF 40%. At least grade 2 diastolic dysfunction with elevated left atrial pressures. Right Ventricle Normal right ventricle. Atria There is severe biatrial dilatation. Mitral Valve Moderate to severe posteriorly directed mitral valve regurgitation. Recommend GISELE for further evaluation. Tricuspid Valve Moderately severe (3+) tricuspid valve insufficiency. Right ventricular systolic pressure estimated to be 67 mmHg. Aortic Valve Trisinus/trileaflet aortic valve. Moderate (2+) aortic valve insufficiency. Pulmonic Valve The pulmonic valve is not well visualized. Great Vessels Normal sized aortic root. Pericardium/Pleural No pericardial effusion. MMode/2D Measurements Calculations RVDd: 4.6 cm LVOT diam: 2.0 cm Ao root diam: 3.8 cm LVOT area: 3.1 cm2 LAV(MOD-bp): 91.4 ml SV(MOD-sp4): 33.6 ml LVAd ap4: 25.4 cm2 LAV(MOD-bp) Indexed: 54.7 ml/m2 LVLd ap4: 6.7 cm LAV(MOD-sp2): 81.0 ml EDV(MOD-sp4): 78.6 ml LAV(MOD-sp4): 93.5 ml EDV(sp4-el): 81.6 ml LVAs ap4: 19.0 cm2 LVLs ap4: 6.2 cm ESV(MOD-sp4): 45.0 ml ESV(sp4-el): 49.0 ml EF(MOD-sp4): 42.8 % EF(sp4-el): 40.0 % SV(sp4-el): 32.6 ml Ao sinus diam: 3.[address] Junction: 2.9 cm LA A4 area: 27.6 cm2 LA dimension(2D): 5.0 cm RA A4 area: 19.1 cm2 TAPSE: 1.4 cm Time Measurements MV dec time: 0.19 sec Doppler Measurements Calculations MV E max tonya: 168.8 cm/sec Lat Peak E' Tonya: 3.5 cm/sec Med Peak E' Tonya: 4.7 cm/sec E/E' lat: 48.8 E/E' med: 35.7 MV V2 max: 195.5 cm/sec MV P1/2t max tonya: 196.8 cm/sec Ao V2 max: 155.3 cm/sec MV max P.3 mmHg MV P1/2t: 77.1 msec Ao max P.7 mmHg MV V2 mean: 91.7 cm/sec Ao V2 mean: 105.6 cm/sec MV mean P.2 mmHg MV dec slope: 747.7 cm/sec2 Ao mean P.1 mmHg MV V2 VTI: 46.3 cm MVA(P1/2t): 2.9 cm2 Ao V2 VTI: 31.0 cm AV (velocity ratio): 0.56 MVA(VTI): 1.2 cm2 OTIS(I,D): 1.7 cm2 OTIS(V,D): 1.8 cm2 AI max tonya: 429.4 cm/sec LV V1 max: 88.0 cm/sec MR max tonya: 600.6 cm/sec AI max P.8 mmHg LV V1 max P.1 mmHg MR max P.0 mmHg AI dec slope: 301.0 cm/sec2 LV V1 mean P.9 mmHg MR mean tonya: 441.2 cm/sec AI P1/2t: 417.8 msec LV V1 mean: 64.7 cm/sec MR mean P.4 mmHg LV V1 VTI: 17.2 cm MR VTI: 198.0 cm SV(LVOT): 53.5 ml PA V2 max: 65.7 cm/sec PI end-d tonya: 147.1 cm/sec PA max PG (full): 0.45 mmHg PI dec slope: 325.7 cm/sec2 TR max tonya: 363.2 cm/sec TR max P.8 mmHg ECHO/Echo Complete Interpretation Summary Mild to moderate LV concentric hypertrophy. Mildly dilated left ventricle. Dyssynchronous LV wall motion. Estimated LVEF 40%. At least grade 2 diastolic dysfunction with elevated left atrial pressures. Moderate to severe posteriorly directed mitral valve regurgitation. Recommend GISELE for further evaluation. Moderately severe (3+) tricuspid valve insufficiency. Right ventricular systolic pressure estimated to be 67 mmHg. Moderate (2+) aortic valve insufficiency. Ordering Physician: Sharon Wynn Referring Physician: Sharon Wynn Performed By: Scotty Love RCS 07/02/24 1612 Date Sharon Wynn MD CC: Dr. Sharon Wynn MD; Dr. 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 Operator: Signed Normal [facility] PACEMAKER REMOTE CHECKon Battery Voltage (volts) 3.08 V [facility] BLANK _ [facility] Won RA Sensing Blanking Period (ms) 550 ms [facility] Won RV Pacing Amplitude (volts) 1.13 V [facility] Won RV Pacing Pulse Width (ms) 0.24 ms [facility] Won RV Sensing Amplitude (mvolts) 2.0 mV [facility] Won RV Sensing Blanking Period (ms) 240 ms [facility] Implant Date 11/19/2023 [facility] Lower Rate (bpm) 70 {beats}/min [facility] Max Sensor Rate (bmp) 120 {beats}/min [facility] Model [id number] Micra VR2 [facility] Pacing Mode VVIR [facility] PM-Device Arcenio RAMIREZ [facility] PM-Percent Pacing (V) 98.74 % [facility] PM-Rate Modulation Acceleration Reaction 30 s [facility] PM-Rate Modulation ADL Rate (bpm) 95 {beats}/min [facility] PM-Rate Modulation Deceleration Exercise [facility] PM-Rate Modulation [place] 3 [facility] RV Bipolar Impedance ohms 470 ohm [facility] Serial Number [id number] [facility] Thresh RV Capture Amplitude (volts) 0.5 V [facility] Thresh RV Capture Duration (ms) 0.24 ms [facility] PM remote interrogat ion. 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 Interrogation shows no ventricular high rate episodes since last check. Electrode impedance and sensing measurements stable. Battery voltage stable. Recommended replacement time is > 10 years. Bryanna CVT NOTE TO PROVIDERS: "CARD" Flowsheets contain detailed device programming and testing data. Paceart/Interrogation PDF can be found under CARDIAC DATA AND REPORT, "Scanned Documents" section. PACEART 06/16/2024 Formattin g of this note might be different from the original. PM remote interrogation. 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 Interrogation shows no ventricular high rate episodes since last check. Electrode impedance and sensing measurements stable. Battery voltage stable. Recommended replacement time is > 10 years. Bryanna CVT NOTE TO PROVIDERS: "CARD" Flowsheets contain detailed device programming and testing data. Paceart/Interrogation PDF can be found under CARDIAC DATA AND REPORT, "Scanned Documents" section. [facility] Office Visiton 04-29-2024 Follow-up visit [id number] José Antonio Corral 1950 F Date Provider Department Center 04/29/2024 [id number] PATEL [facility] CS None Family History Problem Relation Age of Onset Hypertension Mother Kidney failure Mother Heart disease Mother No Known Problems Father Heart disease Brother Family Status - Relation Status Age at Mother Father Brother Level of Service:21813 [place] OFFICE/OUTPATIENT ESTABLISHED MOD MDM 30 MIN Reason for Visit and Comments: Memory Loss [66] Normal [facility] PATINSon 04-29-2024 PATINS Mrs. Corral was se en today for memory. No memory testing today. Will repeat at next visit. Medications: - Continue donepezil (Aricept) 10 mg nightly as is. Refill sent to pharmacy today for when you need it next time. - For mood, start Sertraline. Take half tablet (25 mg) daily for 2 weeks, then increase to 1 tablet (50 mg) daily thereafter. Side effects include upset stomach and diarrhea. If you're having any problems with the medication, call me right away. Avoiding medications that cause confusion and falls - Tylenol PM, Benadryl Recommend physical, mental, and social activity - Ex [facility], Trevor Liangkerradha. Recommend routines, schedules, and organization. Recommend getting adequate sleep and eating balanced diet. Continue regular visits with primary care provider to maintain chronic health conditions. 5 M?s - supervision/assistance with medications, medical care, meals, money, mobility (falls). Follow-up visit in 3 months for medication check. Normal [facility] Progress Noteon 04-29-2024 Progress Note Review of Systems Constitutional: Negative for fatigue, fever and unexpected weight change. HENT: Positive for dental problem and trouble swallowing. Negative for hearing loss. Eyes: Negative for visual disturbance. Respiratory: Positive for cough and shortness of breath. Cardiovascular: Negative for leg swelling. Gastrointestinal: Negative for constipation and diarrhea. Genitourinary: Negative for difficulty urinating and dysuria. Musculoskeletal: Positive for arthralgias, back pain and gait problem. Neurological: Negative for tremors, speech difficulty and weakness. Psychiatric/Behavioral: Positive for agitation and confusion. Negative for dysphoric mood, hallucinations and sleep disturbance. The patient is nervous/anxious. Normal [facility] Progress Note [facility] [address] [address] Dept: [phone] Dept Loc: [phone] Visit type: [facility] Follow Up Visit Reason for Visit: Memory Loss Visit Date: 04/29/2024 Assessment and Plan 1. 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 Anger - sertraline (Zoloft) 50 MG tablet; Take half tablet (25 mg) daily for 2 weeks then increase to 1 tablet (50 mg) daily thereafter, Normal - No cognitive testing today, will repeat at next visit in 3 months - Still moderate stage - Continue medications: Donepezil 10 mg nightly for memory, tolerating - Anger/mood- More mood issues since UTI. Having crying episodes and increased anger towards hsbd. Start Sertraline 25 mg daily for 2 weeks then increase to 50 mg daily thereafter. Discussed SE and to contact office with problems. Will follow-up on medication in 3 months. - Continue non-pharmacologic interventions for memory - Has adequate level of supervision at this time-- dtr providing - F/u in 3 months for medication check and repeat memory testing/routine visit Follow up in about 3 months (around 07/30/2024) for mediation check and repeat memory testing. Subjective HPI: Amalia Corral is a 73 y.o. female who presents to the [facility] for a follow-up visit. The patient is known to me. Initially seen in 03/2023, diagnosed with early moderate Alzheimer's disease in 07/2023. Last seen in 12/2023- [place] 13 (MIS 2), CDT 5, still moderate stage, more physically active after ablation, started on donepezil. History obtained from caregiver(s) and patient together: Pt is here with her dtr Rick. Memory- No progressive declines in short term memory over the past few months since last visit in 12/2023. Function- Per daughter, pt has been picking the skin on her arms. Pt states that sometimes her arms or itchy. Sometimes she picks until she has open areas. Dtr has tried covering them, which seems to help. No big changes with day-to-day function otherwise. Safety issues- No recent falls. Walking is better, even since last visit. No wandering outside the home. Sometimes pt/hsbd pack their things, like they want to go home. No kitchen safety issues. Sleep- Gets up once per night to go to the bathroom. No issues. Mood- More anger/frustration with since UTI. Hasn't improved like other symptoms. Will having crying episodes 2-3 days/week. Had UTI about 1-2 months ago. Was having increased incontinence, confusion, and hallucinations. Ended up in ER. Symptoms improved gradually after she was treated for UTI. Reviewed progress notes completed by ANMOL FERNANDO) and social work. Allergies Allergen Reactions Marco Inhibitors Cough Losartan Rash Current Outpatient Medications Medication Sig Dispense Refill Acetylcysteine (NAC) 600 MG capsule capsule Take 600 mg by mouth in the morning and 600 mg in the evening. One tablet by mouth twice daily. dapagliflozin (Farxiga) 10 MG tablet Take 10 mg by mouth daily. One tablet by mouth once daily losartan (Cozaar) 25 MG tablet Take 25 mg by mouth daily. One tablet by mouth once daily apixaban (Eliquis) 5 MG tablet Take 5 mg by mouth 2 times daily. Take one tablet by mouth twice daily clopidogrel (Plavix) 75 MG tablet Take 75 mg by mouth daily. cyanocobalamin (Vitamin B-12) 1000 MCG tablet Take 1,000 mcg by mouth daily. Take one tablet by mouth daily donepezil (Aricept) 10 MG tablet Take 1 tablet (10 mg) by mouth Nightly. 90 tablet 1 insulin detemir (Levemir) 100 UNIT/ML injection Inject 8 Units under the skin Nightly. levothyroxine (Synthroid, Levoxyl) 25 MCG tablet Take 25 mcg by mouth every morning (before breakfast). Take one tablet by mouth daily metFORMIN (Glucophage) 500 MG tablet Take 1,000 mg by mouth in the morning and 1,000 mg in the evening. Take with meals. metoprolol tartrate (Lopressor) 50 MG tablet Take 50 mg by mouth 2 times daily. Take one tablet by mouth twice daily nitroglycerin (Nitrostat) 0.[address] 0.4 mg under the tongue every 5 minutes as needed for chest pain. sertraline (Zoloft) 50 MG tablet Take half tablet (25 mg) daily for 2 weeks then increase to 1 tablet (50 mg) daily thereafter 30 tablet 2 UltiCare Short Pen [place] 31G X 8 MM [facility] No current facility-administered medications for this visit. Past Medical History: Diagnosis Date Alzheimer's dementia (HCC) diagnosed 07/2023 Diabetes mellitus (HCC) Disease of thyroid gland Heart disease Hyperlipemia Hypertension Pacemaker Toxic encephalopathy Urinary tract infection Social History Tobacco U (more content not included)... Normal [facility] 36on 04-28-2024 36 Left message on phar errol line to notify med was discharged. Normal [facility] Bilirubin, Directon 04-26-20 24 Bilirubin.direct [Mass/Vol] 0.16 mg/dL Normal 0.00-0.30 [facility] Comment on above: Performed By: #### L 500.4100, L500.4050, L501.4700 #### [facility] [address] [place], [address] Comprehensive Metabolic Prof ilon 04-26-2024 Albumin [Mass/Vol] 3.8 g/dL Normal 3.2-5.0 [facility] Comment on above: Performed By: #### L 500.4100, L500.4050, L501.4700 #### [facility] [address] [place], [address] Albumin/Globulin [Mass ratio] 1.0 {ratio} Normal 0.9-2.4 [facility] Comment on above: Performed By: #### L 500.4100, L500.4050, L501.4700 #### [facility] [address] [place], [address] ALK P 62 U/L Normal 45-117 [facility] Comment on above: Performed By: #### L 500.4100, L500.4050, L501.4700 #### [facility] [address] [place], [address] ALT [Catalytic activity/Vol] 21 U/L Normal 13-56 [facility] Comment on above: Performed By: #### L 500.4100, L500.4050, L501.4700 #### [facility] [address] [place], [address] AST [Catalytic activity/Vol] 22 U/L Normal 15-37 [facility] Comment on above: Performed By: #### L 500.4100, L500.4050, L501.4700 #### [facility] [address] [place], [address] Bilirubin [Mass/Vol] 0.60 mg/dL Normal 0.20-1.00 [facility] Comment on above: Result Comment: For patients on eltrombopag therapy, use of Dimension [place] TBIL is not recommended. Performed By: #### L 500.4100, L500.4050, L501.4700 #### [facility] [address] [place], [address] BUN/CRE 20.0 RATIO Normal 10-20 [facility] Comment on above: Performed By: #### L 500.4100, L500.4050, L501.4700 #### [facility] [address] [place], [address] CA,Total 9.6 mg/dL Normal 8.5-10.1 [facility] Comment on above: Performed By: #### L 500.4100, L500.4050, L501.4700 #### [facility] [address] [place], [address] Chloride [Moles/Vol] 112 mmol/L High 98-107 [facility] Comment on above: Performed By: #### L 500.4100, L500.4050, L501.4700 #### [facility] [address] [place], [address] CO2 [Moles/Vol] 21.0 mmol/L Normal 21.0-32.0 [facility] Comment on above: Performed By: #### L 500.4100, L500.4050, L501.4700 #### [facility] [address] [place], [address] Creatinine [Mass/Vol] 1.10 mg/dL High 0.55-1.02 [facility] Comment on above: Result Comment: The validity of the calculated GFR GFRAA in patients over 70 years has not been determined. Clinical correlation is essential. Performed By: #### L 500.4100, L500.4050, L501.4700 #### [facility] [address] [place], [address] EST GFR - AA 62 mL/min Normal >60 [facility] Comment on above: Result Comment: Afri can Hungarian GFR Calc Performed By: #### L 500.4100, L500.4050, L501.4700 #### [facility] [address] [place], [address] GAP 7 Normal 5-15 [facility] Comment on above: Performed By: #### L 500.4100, L500.4050, L501.4700 #### [facility] [address] [place], [address] GFR/1.73 sq M.predicted among non-blacks MDRD (S/P/Bld) [Vol rate/Area] 51 mL/min/{1.73_m2} Low >60 [facility] Comment on above: Result Comment: Non- GFR Calc Performed By: #### L 500.4100, L500.4050, L501.4700 #### [facility] [address] [place], [address] Globulin (S) [Mass/Vol] 3.8 g/dL Normal 2.2-4.2 [facility] Comment on above: Performed By: #### L 500.4100, L500.4050, L501.4700 #### [facility] [address] [place], [address] Glucose [Mass/Vol] 114 mg/dL High 74-106 [facility] Comment on above: Result Comment: Fast ing Glucose result from 100 to 125 mg/dL suggests IMPAIRED HOMEOSTASIS per A.D.A. criteria. Performed By: #### L 500.4100, L500.4050, L501.4700 #### [facility] [address] [place], [address] Potassium [Moles/Vol] 4.6 mmol/L Normal 3.5-5.1 [facility] Comment on above: Performed By: #### L 500.4100, L500.4050, L501.4700 #### [facility] [address] [place], [address] Sodium [Moles/Vol] 140 mmol/L Normal 136-145 [facility] Comment on above: Performed By: #### L 500.4100, L500.4050, L501.4700 #### [facility] [address] [place], [address] T PROT 7.6 g/dL Normal 6.4-8.2 [facility] Comment on above: Performed By: #### L 500.4100, L500.4050, L501.4700 #### [facility] [address] [place], [address] Urea nitrogen [Mass/Vol] 22 mg/dL High 7-18 [facility] Comment on above: Performed By: #### L 500.4100, L500.4050, L501.4700 #### [facility] [address] [place], [address] Lipid Profileon 04-26-2024 Cholesterol [Mass/Vol] 132 mg/dL Normal 200 [facility] Comment on above: Result Comment: <200 mg/dL Desirable 200-240 mg/dL Borderline >240 mg/dL High Risk Performed By: #### L 500.4100, L500.4050, L501.4700 #### [facility] [address] [place], [address] Cholesterol in HDL [Mass/Vol] 55 mg/dL Normal [facility] Comment on above: Result Comment: The drugs N-Acetylcysteine and Metamizole may falsely depress this assay. Reference Range HDL <40 mg/dL Low HDL Cholesterol HDL >or= 60 mg/dL High HDL Cholesterol Performed By: #### L 500.4100, L500.4050, L501.4700 #### [facility] [address] [place], [address] Cholesterol in LDL [Mass/Vol] 52 mg/dL Normal 0-130 [facility] Comment on above: Performed By: #### L 500.4100, L500.4050, L501.4700 #### [facility] [address] [place], [address] Cholesterol in VLDL [Mass/Vol] 25 mg/dL Normal 5-40 [facility] Comment on above: Performed By: #### L 500.4100, L500.4050, L501.4700 #### [facility] [address] [place], [address] Triglyceride [Mass/Vol] 124 mg/dL Normal [facility] Comment on above: Result Comment: The drugs N-Acetylcysteine and Metamizole may falsely depress this assay. Serum Triglycerides Reference Interval Normal <150 mg/dL Borderline high 150 - 199 mg/dL High 200 - 499 mg/dL Very High > or = 500 mg/dL Performed By: #### L 500.4100, L500.4050, L501.4700 #### [facility] [address] [place], [address] 36on 04-25-2024 36 This medication was stopped due to pt having side effects. Please advise pharmacy that this was stopped. Normal [facility] Cardiology Visit Reporton Cardiology Visit Report [facility] [address] [place] [address] OFFICE VISIT Date of Service: 04/16/24 MR#: [id number] Acct: [id number] Name: AMALIA CORRAL AISSATOU Rep #: [id number] : 1950 Provider: Dr. Sharon Wynn MD Age/Sex: 73/F Location: [facility] Status: Signed HPI HPI History of Present Illness Details: This lady with history of coronary artery disease status post percutaneous intervention with drug- eluting stents to the proximal LAD and distal right coronary artery at [facility] in June of last year comes for routine follow-up visit. She also has history of sick sinus syndrome with permanent atrial fibrillation, status post AV yessica ablation and placement of permanent pacemaker. Doing good. Denies any complaints. No chest pains. No shortness of breath. No orthopnea or PND. No ankle edema. No lightheadedness or dizziness. No syncope or presyncope. Intake Vital Signs 10/15/23 09:55 03/24/24 09:53 04/16/24 10:10 Height 5 ft 5 in 5 ft 5 in 5 ft 5 in Weight: 149 lb BMI 24.7 BP 139/78 H Blood Pressure Location Lt brachial Position Sitting Respiration 16 Pulse 71 Pulse Source Monitor Intake Visit Reasons: 6 M Esol Teacher Required: No Accompanied by: Daughter Is patient in pain?: No Allergies MARCO Inhibitors Adverse Reaction (Verified 04/16/24 10:11) Cough Medications ???Medication ???Instructions ???Recorded ???Confirmed ???Type metformin 500 mg tablet 1,000 mg PO BID 03/26/18 04/16/24 History cyanocobalamin (vitamin B-12) 1,000 mcg PO DAILY 03/19/23 04/16/24 History 1,000 mcg tablet (Vitamin B-12) apixaban 5 mg tablet (Eliquis) 5 mg PO BID #60 tabs 03/28/23 04/16/24 Rx clopidogrel 75 mg tablet 75 mg PO DAILY 06/19/23 04/16/24 History metoprolol tartrate 50 mg tablet 50 mg PO BID #60 tabs 07/09/23 04/16/24 Rx pravastatin 20 mg tablet 20 mg PO DAILY #90 tabs 07/19/23 04/16/24 Rx nitroglycerin 0.4 mg sublingual 0.4 mg sublingual Q5-15M PRN chest 08/16/23 04/16/24 History tablet pain donepezil 10 mg tablet 10 mg PO QHS 03/24/24 04/16/24 History levothyroxine 25 mcg tablet 25 mcg PO QDAY #90 tabs 04/04/24 04/16/24 Rx acetylcysteine 600 mg capsule 600 mg PO BID 04/16/24 04/16/24 History insulin glargine 100 unit/mL (3 6 unit subcut DAILY 04/16/24 04/16/24 History mL) subcutaneous pen (Basaglar KwikPen U-100 Insulin) Ejection fraction %: 45 Have you fallen in the past year?: No PFSH Medical History Dyslipidemia Atherosclerosis of andreafski coronary artery 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 Coronary artery disease Abnormal cardiovascular stress test Decreased left ventricular systolic function Left ventricular systolic dysfunction (LVSD) Mitral regurgitation E. coli UTI Diastolic dysfunction without heart failure Sick sinus syndrome Obesity Nonrheumatic mitral valve stenosis with insufficiency Chronic diastolic (congestive) heart failure Essential (primary) hypertension Secondary pulmonary arterial hypertension Nonrheumatic tricuspid (valve) insufficiency Incomplete left bundle branch block (LBBB) Chronic kidney disease (CKD) Persistent atrial fibrillation Hyperlipidemia Type 2 diabetes mellitus Surgical History History of permanent cardiac pacemaker placement ( 11/20/23) History of coronary artery stent placement Hx of cardiac catheterization ( 11/09/23) History of cholecystectomy S/P ALY (total abdominal hysterectomy) Family History Mother CAD (coronary artery disease) Brother , Age 65 [place] CAD (coronary artery disease) Atrial fibrillation Myocardial infarction Father , in MVA No problems noted. Social History Smoking Status: Former smoker how long ago did patient quit smoking: greater than 20 years alcohol intake: never substance use type: does not use caffeine: Yes Type: coffee Number of servings: 1 ROS Const Const: Negative for fatigue, weakness, headache(s), frequent falls, difficulty sleeping or excessive sweating Eyes Eyes: Negative for loss of peripheral vision, transient loss of vision, blurry vision, double vision or tunnel vision ENT ENT: Positive for balance problems; Negative for headache(s), dizziness or Nosebleed/epistaxis Cardio Chest Pain: No Palpitations: Yes (if gets upset with hubby) feels like its: fast and skipping Resp Respiratory: Positive for SOB with activity; Negative for SOB at rest, SOB orthopnea SOB lying down, Cough or paroxysmal nocturnal dyspnea GI GI: Negative nausea, vomiting, heartburn or black,tarry stools : Negative for hematuria Musc Musc: Positi (more content not included)... Normal [facility] Urine Cultureon 03-26-2024 URC Escherichia coli [place] Count >100,000 Escherichia coli: REACTION Ampicillin Islt LETICIA <=2 S Ampicillin+Sulbac Islt LETICIA <=2 S ceFAZolin Islt LETICIA <=4 S Cefepime Islt LETICIA <=0.12 S cefTRIAXone Islt LETICIA <=0.25 S Ciprofloxacin Islt LETICIA >=4 R Ertapenem Islt LETICIA <=0.12 S B-Lactamase Extended Susc Islt NEG Gentamicin Islt LETICIA <=1 S Imipenem Islt LETICIA <=0.25 S levoFLOXacin Islt LETICIA >=8 R Nitrofurantoin Islt LETICIA <=16 S Pip+Tazo Islt LETICIA <=4 S Tobramycin Islt LETICIA <=1 S TMP SMX Islt LETICIA <=20 S Normal [facility] Comment on above: Performed By: #### L 501.9520, L500.4050, L500.4100 #### [facility] [address] [place], [address] CBC W/Diff, Automatedon 03-02 PATH REV Reviewed Normal [facility] Comment on above: Result Comment: Neut rophilic leukocytosis. Clinical correlation necessary. Jose Otero M.D. 03/25/24 AMENDED REPORT 03/25/24 1340 PATH REV previously reported as: Coleen diana Performed By: #### L 501.9520, L500.4050, L500.4100 #### [facility] [address] [place], [address] 12 Lead EKGon 03-24-2024 12 Lead EKG [facility] [address] [place] [address] 12 Lead EKG 03/24/24 1109 MR#: [id number] Acct: [id number] Name: AMALIA CORRAL AISSATOU Rep #: [id number] : 1950 73 From: Sal Bello MD Attending Dr: Status: DEP ER Ordering Dr: Rajat Campos DO Date: 03/24/24 Location: ED Sex: F C Admitted: Test Reason : CONFUSION Blood Pressure : / mmHG Vent. Rate : 072 BPM Atrial Rate : 059 BPM P-R Int : 000 ms QRS Dur : 170 ms QT Int : 438 ms P-R-T Axes : 000 -77 104 degrees QTc Int : 479 ms Ventricular-paced rhythm Abnormal ECG Confirmed by Sal Bello ([id number]), development editor JOE AVENDAÑO ([id number]) on 03/25/2024 8:05:03 AM Referred By: Confirmed By:Sal Bello 03/25/24804 Date Sal Bello MD CC: Dr. Rajat Campos DO; Dr. Rajat Patel MD Signed Normal [facility] Basic Metabolic Profile (BMP )on 03-24-2024 BUN/CRE 15.2 RATIO Normal 10-20 [facility] Comment on above: Performed By: #### L 501.9520, L500.4050, L500.4100 #### [facility] [address] [place], [address] CA,Total 9.8 mg/dL Normal 8.5-10.1 [facility] Comment on above: Performed By: #### L 501.9520, L500.4050, L500.4100 #### [facility] [address] [place], [address] Chloride [Moles/Vol] 105 mmol/L Normal 98-107 [facility] Comment on above: Performed By: #### L 501.9520, L500.4050, L500.4100 #### [facility] [address] [place], [address] CO2 [Moles/Vol] 23.0 mmol/L Normal 21.0-32.0 [facility] Comment on above: Performed By: #### L 501.9520, L500.4050, L500.4100 #### [facility] [address] [place], [address] Creatinine [Mass/Vol] 1.51 mg/dL High 0.55-1.02 [facility] Comment on above: Result Comment: The validity of the calculated GFR GFRAA in patients over 70 years has not been determined. Clinical correlation is essential. Performed By: #### L 501.9520, L500.4050, L500.4100 #### [facility] [address] [place], [address] ECRCL 28.97 ml/min Normal [facility] Comment on above: Performed By: #### L 501.9520, L500.4050, L500.4100 #### [facility] [address] [place], [address] EST GFR - AA 43 mL/min Low >60 [facility] Comment on above: Result Comment: Afri can Hungarian GFR Calc Performed By: #### L 501.9520, L500.4050, L500.4100 #### [facility] [address] [place], [address] GAP 7 Normal 5-15 [facility] Comment on above: Performed By: #### L 501.9520, L500.4050, L500.4100 #### [facility] [address] [place], [address] GFR/1.73 sq M.predicted among non-blacks MDRD (S/P/Bld) [Vol rate/Area] 36 mL/min/{1.73_m2} Low >60 [facility] Comment on above: Result Comment: Non- GFR Calc Performed By: #### L 501.9520, L500.4050, L500.4100 #### [facility] [address] [place], [address] Glucose [Mass/Vol] 125 mg/dL High 74-106 [facility] Comment on above: Result Comment: Fast ing Glucose result from 100 to 125 mg/dL suggests IMPAIRED HOMEOSTASIS per A.D.A. criteria. Performed By: #### L 501.9520, L500.4050, L500.4100 #### [facility] [address] [place], [address] Potassium [Moles/Vol] 3.6 mmol/L Normal 3.5-5.1 [facility] Comment on above: Performed By: #### L 501.9520, L500.4050, L500.4100 #### [facility] [address] [place], [address] Sodium [Moles/Vol] 135 mmol/L Low 136-145 [facility] Comment on above: Performed By: #### L 501.9520, L500.4050, L500.4100 #### [facility] [address] [place], [address] Urea nitrogen [Mass/Vol] 23 mg/dL High 7-18 [facility] Comment on above: Performed By: #### L 501.9520, L500.4050, L500.4100 #### [facility] [address] [place], [address] Emergency Department Summary on 03-24-2024 Emergency Department Summary [facility] Medical Records Department [address] [place] [address] Emergency Department Summary 03/24/24 MR#: [id number] Acct: [id number] Name: AMALIA CORRAL AISSATOU Rep #: [id number] : 1950 73 From: Rajat Campos DO PCP: Dr. Rajat Patel MD Status:DEP ER Location: ED HPI History of Present Illness Chief Complaint: Confusion Informant: patient and family Onset/Context/Timing Onset: Days (2) Context: Gradual Onset Timing: Waxes and wanes Quality: Confused Location: Generalized Worsened by: Nothing Relieved by: Nothing Narrative Narrative: Patient presents with increasing confusion and urinary incontinence. Daughter states that patient has been having increasing incontinence and foul-smelling urine for the past couple days. Daughter states it is gradually gotten worse. Daughter states her symptoms seem to be waxing and waning. Daughter states patient has been more fatigued than usual. Patient has a history of dementia and is a poor informant. Daughter states patient was complaining of some chills recently. Daughter denies any fevers. Patient admits to a slight cough. [facility] Medical History Atherosclerosis of andreafski coronary artery 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 Coronary artery disease Abnormal cardiovascular stress test Decreased left ventricular systolic function Left ventricular systolic dysfunction (LVSD) Mitral regurgitation E. coli UTI Diastolic dysfunction without heart failure Sick sinus syndrome Obesity Nonrheumatic mitral valve stenosis with insufficiency Chronic diastolic (congestive) heart failure Essential (primary) hypertension Secondary pulmonary arterial hypertension Nonrheumatic tricuspid (valve) insufficiency Incomplete left bundle branch block (LBBB) Chronic kidney disease (CKD) Persistent atrial fibrillation Hyperlipidemia Type 2 diabetes mellitus Home Medications ???Medication ???Instructions ???Recorded ???Last Taken ???Type metformin 500 mg tablet 1,000 mg PO BID 03/26/18 03/24/24 History cyanocobalamin (vitamin B-12) 1,000 mcg PO DAILY 03/19/23 03/24/24 History 1,000 mcg tablet (Vitamin B-12) apixaban 5 mg tablet (Eliquis) 5 mg PO BID #60 tabs 03/28/23 03/24/24 Rx levothyroxine 25 mcg tablet 25 mcg PO QDAY #90 tabs 04/09/23 03/24/24 Rx clopidogrel 75 mg tablet 75 mg PO DAILY 06/19/23 03/24/24 History metoprolol tartrate 50 mg tablet 50 mg PO BID #60 tabs 07/09/23 03/24/24 Rx pravastatin 20 mg tablet 20 mg PO DAILY #90 tabs 07/19/23 03/23/24 Rx nitroglycerin 0.4 mg sublingual 0.4 mg sublingual Q5-15M PRN chest 08/16/23 Unknown History tablet pain cephalexin 500 mg capsule 500 mg PO Q6 #20 CAPSULES 03/24/24 Unknown Rx donepezil 10 mg tablet 10 mg PO QHS 03/24/24 03/24/24 History insulin glargine 100 unit/mL (3 6 unit subcut BID 03/24/24 03/24/24 History mL) subcutaneous pen (Basaglar KwikPen U-100 Insulin) Allergy/AdvReac Type Severity Reaction Status Date / Time MARCO Inhibitors AdvReac Cough Verified 03/24/24 09:52 Family History Mother CAD (coronary artery disease) Brother , Age 65 [place] CAD (coronary artery disease) Atrial fibrillation Myocardial infarction Father , in MVA No problems noted. Surgical History History of coronary artery stent placement Hx of cardiac catheterization ( 05/24/23) History of cholecystectomy S/P ALY (total abdominal hysterectomy) Social History Smoking Status: Former smoker how long ago did patient quit smoking: greater than 20 years alcohol intake: never substance use type: does not use caffeine: Yes Type: coffee Number of servings: 1 ROS ROS ED Constitutional Constitutional ED: Reports chills; Denies fever(s) Eyes Eyes: Denies blurry vision or change in vision ENT ENT ED: Denies rhinorrhea or sore throat Cardiovascular Cardiovascular: Denies chest pain or palpitations Respiratory/Chest Respiratory/Chest: Reports cough; Denies dyspnea Gastrointestinal Gastrointestinal: Denies nausea or vomiting Genitourinary Genitourinary ED: Denies dysuria or hematuria Musculoskeletal Musculoskeletal: Denies back pain or neck pain Integumentary Denies abscess or rash Neurologic Neurologic: Denies headache(s) or weakness Allergic/Immunologic Allergic/Immunologic ED: Denies mouth swelling or urticaria EXAM Physical Exam Const Vital Signs: 03/24/24 09:53 03/24/24 12:00 03/24/24 13:25 Temperature 99.5 F H 97.8 F Temperature Source Temporal Pulse Rate 70 77 74 Respiratory Rate 16 16 15 Blood Pressure 117/54 L 123/69 H 143/68 H Blood Press (more content not included)... Normal [facility] Erythrocyte Sed Rateon 03-24 SED RATE Normal 0-30 [facility] Comment on above: Result Comment: Roger mckeon via OM: Ordered Performed By: #### L 101.9900 #### [facility] [address] [place], [address] Urinalysis, Completeon 03-24 BACTERIA 3+ /hpf Normal None Seen [facility] Comment on above: Order Comment: Order Date: 01/01/25 Order Info: [id number] - CMP Order Info: [id number] - LIPID Order Info: [id number] - TSH Order Info: [id number] - FOLS Performed By: #### L 501.9520, L500.4050, L500.4100 #### [facility] [address] [place], [address] EPI,SQUAMOUS 0-5 SEEN Normal 5-10 [facility] Comment on above: Order Comment: Order Date: 01/01/25 Order Info: [id number] - CMP Order Info: [id number] - LIPID Order Info: [id number] - TSH Order Info: [id number] - FOLS Performed By: #### L 501.9520, L500.4050, L500.4100 #### [facility] [address] [place], [address] RBC 25-50 SEEN Normal 0-5 [facility] Comment on above: Order Comment: Order Date: 01/01/25 Order Info: [id number] - CMP Order Info: [id number] - LIPID Order Info: [id number] - TSH Order Info: [id number] - FOLS Performed By: #### L 501.9520, L500.4050, L500.4100 #### [facility] [address] [place], [address] WBC 25-50 SEEN Normal 0-5 [facility] Comment on above: Order Comment: Order Date: 01/01/25 Order Info: [id number] - CMP Order Info: [id number] - LIPID Order Info: [id number] - TSH Order Info: [id number] - FOLS Performed By: #### L 501.9520, L500.4050, L500.4100 #### [facility] [address] [place], [address] Mucus Ql (Urine sed) 0 SEEN Normal [facility] Comment on above: Order Comment: Order Date: 01/01/25 Order Info: [id number] - CMP Order Info: [id number] - LIPID Order Info: [id number] - TSH Order Info: 228-8 - FOLS Performed By: #### L 501.9520, L500.4050, L500.4100 #### [facility] [address] [place], [address] Comprehensive Metabolic Prof ilon 03-04-2024 Albumin [Mass/Vol] 3.7 g/dL Normal 3.2-5.0 [facility] Comment on above: Order Comment: Order Date: 01/01/25 Order Info: [id number] - CMP Order Info: [id number] - LIPID Order Info: [id number] - TSH Order Info: 228-8 - FOLS Performed By: #### L 501.9520, L500.4050, L500.4100 #### [facility] [address] [place], [address] Albumin/Globulin [Mass ratio] 1.0 {ratio} Normal 0.9-2.4 [facility] Comment on above: Order Comment: Order Date: 01/01/25 Order Info: [id number] - CMP Order Info: [id number] - LIPID Order Info: [id number] - TSH Order Info: [id number] - FOLS Performed By: #### L 501.9520, L500.4050, L500.4100 #### [facility] [address] [place], [address] ALK P 72 U/L Normal 45-117 [facility] Comment on above: Order Comment: Order Date: 01/01/25 Order Info: [id number] - CMP Order Info: [id number] - LIPID Order Info: [id number] - TSH Order Info: [id number] - FOLS Performed By: #### L 501.9520, L500.4050, L500.4100 #### [facility] [address] [place], [address] ALT [Catalytic activity/Vol] 33 U/L Normal 13-56 [facility] Comment on above: Order Comment: Order Date: 01/01/25 Order Info: [id number] - CMP Order Info: [id number] - LIPID Order Info: 3 - TSH Order Info: 8 - FOLS Performed By: #### L 501.9520, L500.4050, L500.4100 #### [facility] [address] [place], [address] AST [Catalytic activity/Vol] 24 U/L Normal 15-37 [facility] Comment on above: Order Comment: Order Date: 01/01/25 Order Info: [id number] - CMP Order Info: [id number] - LIPID Order Info: 3 - TSH Order Info: 8 - FOLS Performed By: #### L 501.9520, L500.4050, L500.4100 #### [facility] [address] [place], [address] Bilirubin [Mass/Vol] 0.70 mg/dL Normal 0.20-1.00 [facility] Comment on above: Order Comment: Order Date: 01/01/25 Order Info: [id number] - CMP Order Info: [id number] - LIPID Order Info: 6-3 - TSH Order Info: [id number] - FOLS Result Comment: For patients on eltrombopag therapy, use of Dimension [place] TBIL is not recommended. Performed By: #### L 501.9520, L500.4050, L500.4100 #### [facility] [address] [place], [address] BUN/CRE 17.2 RATIO Normal 10-20 [facility] Comment on above: Order Comment: Order Date: 01/01/25 Order Info: [id number] - CMP Order Info: - LIPID Order Info: [id number] - TSH Order Info: 8 - FOLS Performed By: #### L 501.9520, L500.4050, L500.4100 #### [facility] [address] [place], [address] CA,Total 9.9 mg/dL Normal 8.5-10.1 [facility] Comment on above: Order Comment: Order Date: 01/01/25 Order Info: [id number]- - CMP Order Info: - LIPID Order Info: [id number] - TSH Order Info: 8 - FOLS Performed By: #### L 501.9520, L500.4050, L500.4100 #### [facility] [address] [place], [address] Chloride [Moles/Vol] 110 mmol/L High 98-107 [facility] Comment on above: Order Comment: Order Date: 01/01/25 Order Info: [id number] - CMP Order Info: - LIPID Order Info: [id number] - TSH Order Info: 8 - FOLS Performed By: #### L 501.9520, L500.4050, L500.4100 #### [facility] [address] [place], [address] CO2 [Moles/Vol] 21.0 mmol/L Normal 21.0-32.0 [facility] Comment on above: Order Comment: Order Date: 01/01/25 Order Info: 07 - CMP Order Info: - LIPID Order Info: [id number] - TSH Order Info: [id number] - FOLS Performed By: #### L 501.9520, L500.4050, L500.4100 #### [facility] [address] [place], [address] Creatinine [Mass/Vol] 1.28 mg/dL High 0.55-1.02 [facility] Comment on above: Order Comment: Order Date: 01/01/25 Order Info: 07- - CMP Order Info: - LIPID Order Info: 3 - TSH Order Info: [id number] - FOLS Result Comment: The validity of the calculated GFR GFRAA in patients over 70 years has not been determined. Clinical correlation is essential. Performed By: #### L 501.9520, L500.4050, L500.4100 #### [facility] [address] [place], [address] EST GFR - AA 52 mL/min Low >60 [facility] Comment on above: Order Comment: Order Date: 01/01/25 Order Info: [id number] - CMP Order Info: - LIPID Order Info: 3 - TSH Order Info: [id number] - FOLS Result Comment: Afri can Hungarian GFR Calc Performed By: #### L 501.9520, L500.4050, L500.4100 #### [facility] [address] [place], [address] GAP 7 Normal 5-15 [facility] Comment on above: Order Comment: Order Date: 01/01/25 Order Info: 0786 - CMP Order Info: - LIPID Order Info: 3 - TSH Order Info: [id number] - FOLS Performed By: #### L 501.9520, L500.4050, L500.4100 #### [facility] [address] [place], [address] GFR/1.73 sq M.predicted among non-blacks MDRD (S/P/Bld) [Vol rate/Area] 43 mL/min/{1.73_m2} Low >60 [facility] Comment on above: Order Comment: Order Date: 01/01/25 Order Info: [id number]- - CMP Order Info: - LIPID Order Info: [id number] - TSH Order Info: [id number] - FOLS Result Comment: Non- GFR Calc Performed By: #### L 501.9520, L500.4050, L500.4100 #### [facility] [address] [place], [address] Globulin (S) [Mass/Vol] 3.7 g/dL Normal 2.2-4.2 [facility] Comment on above: Order Comment: Order Date: 01/01/25 Order Info: [id number] - CMP Order Info: [id number] - LIPID Order Info: 3 - TSH Order Info: [id number] - FOLS Performed By: #### L 501.9520, L500.4050, L500.4100 #### [facility] [address] [place], [address] Glucose [Mass/Vol] 135 mg/dL High 74-106 [facility] Comment on above: Order Comment: Order Date: 01/01/25 Order Info: 0786- - CMP Order Info: - LIPID Order Info: [id number] - TSH Order Info: [id number] - FOLS Result Comment: Fast ing Glucose result greater than or equal to 126 mg/dL suggests DIABETES MELLITUS per A.D.A. criteria. Performed By: #### L 501.9520, L500.4050, L500.4100 #### [facility] [address] [place], [address] Potassium [Moles/Vol] 4.7 mmol/L Normal 3.5-5.1 [facility] Comment on above: Order Comment: Order Date: 01/01/25 Order Info: [id number] - CMP Order Info: [id number] - LIPID Order Info: 3 - TSH Order Info: 8 - FOLS Performed By: #### L 501.9520, L500.4050, L500.4100 #### [facility] [address] [place], [address] Sodium [Moles/Vol] 138 mmol/L Normal 136-145 [facility] Comment on above: Order Comment: Order Date: 01/01/25 Order Info: [id number] - CMP Order Info: - LIPID Order Info: [id number] - TSH Order Info: 8 - FOLS Performed By: #### L 501.9520, L500.4050, L500.4100 #### [facility] [address] [place], [address] T PROT 7.4 g/dL Normal 6.4-8.2 [facility] Comment on above: Order Comment: Order Date: 01/01/25 Order Info: [id number] - CMP Order Info: - LIPID Order Info: [id number] - TSH Order Info: [id number] - FOLS Performed By: #### L 501.9520, L500.4050, L500.4100 #### [facility] [address] [place], [address] Urea nitrogen [Mass/Vol] 22 mg/dL High 7-18 [facility] Comment on above: Order Comment: Order Date: 01/01/25 Order Info: [id number] - CMP Order Info: - LIPID Order Info: [id number] - TSH Order Info: [id number] - FOLS Performed By: #### L 501.9520, L500.4050, L500.4100 #### [facility] [address] [place], [address] Hemoglobin A1con 03-04-2024 HbA1c (Bld) [Mass fraction] 6.9 % High 3.8-5.6 [facility] Comment on above: Order Comment: Order Date: 01/01/25 Order Info: [id number] - CMP Order Info: - LIPID Order Info: [id number] - TSH Order Info: [id number] - FOLS Result Comment: Norm al < 5.7 % Prediabetic 5.7 - 6.4 % Diabetic >or= 6.5 % Please note range changes. Performed By: #### L 501.9520, L500.4050, L500.4100 #### [facility] [address] [place], [place], [address] Thyroid Stim Hormone (TSH)on 03-04-2024 TSH 2.16 uIU/mL Normal 0.358-3.74 [facility] Comment on above: Order Comment: Order Date: 01/01/25 Order Info: [id number] - CMP Order Info: [id number] - LIPID Order Info: [id number] - TSH Order Info: [id number] - FOLS Performed By: #### L 501.9520, L500.4050, L500.4100 #### [facility] [address] [place], [place], [id number] [facility] Battery Voltage (volts) 3.07 V [facility] BLANK _ [facility] Won RA Sensing Blanking Period (ms) 550 ms [facility] Won RV Pacing Amplitude (volts) 2.0 V [facility] Won RV Pacing Pulse Width (ms) 0.24 ms [facility] Won RV Sensing Amplitude (mvolts) 2.0 mV [facility] Won RV Sensing Blanking Period (ms) 240 ms [facility] Implant Date 11/19/2023 [facility] Lower Rate (bpm) 70 {beats}/min [facility] Max Sensor Rate (bmp) 120 {beats}/min [facility] Model [id number] Micra VR2 [facility] Pacing Mode VVIR [facility] PM-Device Mfg MDT [facility] PM-Percent Pacing (V) 98.34 % [facility] PM-Rate Modulation Acceleration Reaction 30 s [facility] PM-Rate Modulation ADL Rate (bpm) 95 {beats}/min [facility] PM-Rate Modulation Deceleration Exercise [facility] [facility] PM-Rate Modulation [place] [facility] Rhythm Atrial fib w/ CHB. N o R waves w/ rate decreased [facility] Serial Number [id number] [facility] Thresh RV Capture Amplitude (volts) 0.5 V [facility] Thresh RV Capture Duration (ms) 0.24 ms [facility] CHECKon Battery Voltage (volts) 3.06 V [facility] BLANK _ [facility] Won RA Sensing Blanking Period (ms) 550 ms [facility] Won RV Pacing Amplitude (volts) 2.13 V [facility] Won RV Pacing Pulse Width (ms) 0.24 ms [facility] Won RV Sensing Amplitude (mvolts) 2.0 mV [facility] Won RV Sensing Blanking Period (ms) 240 ms [facility] Implant Date 11/19/2023 [facility] Lower Rate (bpm) 80 {beats}/min [facility] Max Sensor Rate (bmp) 120 {beats}/min [facility] Model [id number] Micra 2 [facility] Pacemaker Dependent? YES [facility] Pacing Mode VVIR [facility] PM-Device Mfg MDT [facility] PM-Percent Pacing (V) 99.93 % [facility] PM-Rate Modulation Acceleration Reaction 30 s [facility] PM-Rate Modulation ADL Rate (bpm) 95 {beats}/min [facility] PM-Rate Modulation Deceleration Exercise [facility] PM-Rate Modulation [place] [facility] Rhythm no R wave @ VVI 40; s/p AVJ ablation [facility] Serial Number [id number] [facility] Thresh RV Capture Amplitude (volts) 0.5 V [facility] Thresh RV Capture Duration (ms) 0.24 ms [facility] Thresh RV Sensing Amplitude (mvolts) paced [facility] CLINIC CHECKon Battery Voltage (volts) 3.07 V [facility] BLANK _ [facility] Won RA Sensing Blanking Period (ms) 550 ms [facility] Won RV Pacing Amplitude (volts) 2.25 V [facility] Won RV Pacing Pulse Width (ms) 0.24 ms [facility] Won RV Sensing Amplitude (mvolts) 2.0 mV [facility] Won RV Sensing Blanking Period (ms) 240 ms [facility] Implant Date 11/19/2023 [facility] Lower Rate (bpm) 90 {beats}/min [facility] Max Sensor Rate (bmp) 120 {beats}/min [facility] Model [id number] Micra VR2 [facility] Pacemaker Dependent? YES [facility] Pacing Mode VVIR [facility] PM-Device Mfg T [facility] PM-Percent Pacing (V) 99.96 % [facility] PM-Rate Modulation Acceleration Reaction 30 s [facility] PM-Rate Modulation ADL Rate (bpm) 95 {beats}/min [facility] PM-Rate Modulation Deceleration Exercise [facility] PM-Rate Modulation [place] 3 [facility] Rhythm dep @ VVI 40 bpm [facility] Serial Number [id number] [facility] Thresh RV Capture Amplitude (volts) 0.5 V [facility] Thresh RV Capture Duration (ms) 0.24 ms [facility] Basophil percentageOrdered B y: Rajat Patel on 09-07-2023 Bilirubin [Mass/Vol] 0.30 mg/dL 0.20-1.00 [facility] Comment on above: For patients on eltr ombopag therapy, use of Dimension [place] TBIL is not recommended. Chloride [Moles/Vol] 106 mmol/L 98-107 [facility] Glucose [Mass/Vol] 273 mg/dL 74-106 [facility] Comment on above: Glucose result great er than or equal to 200 mg/dLsuggests DIABETES MELLITUS per A.D.A. criteria. Potassium [Moles/Vol] 4.8 mmol/L 3.5-5.1 [facility] Protein [Mass/Vol] 8.0 g/dL 6.4-8.2 [facility] Sodium [Moles/Vol] 137 mmol/L 136-145 [facility] Laboratory - Chemistry and C hemistry - challengeOrdered By: Rajat Patel on 09-07-2023 ALP [Catalytic activity/Vol] 73 U/L 45-117 [facility] ALT [Catalytic activity/Vol] 19 U/L 13-56 [facility] CO2 [Moles/Vol] 28.0 mmol/L 21.0-32.0 [facility] Globulin (S) [Mass/Vol] 4.3 g/dL 2.2-4.2 [facility] Urea nitrogen/Creatinine [Mass ratio] 16.7 mg/mg 10-20 [facility] No Panel InformationOrdered By: Rajat Patel on 09-07-2023 Digoxin Level 1.09 ng/mL 0.80-2.00 [facility] Estimated GFR (MDRD) Amer 48 mL/min >60 [facility] Comment on above: GFR Calc Estimated GFR (MDRD) Non-Af Amer 40 mL/min >60 [facility] Comment on above: Non- GFR Calc Serum or plasma albumin teressa urement (mass/volume)Ordered By: Rajat Patel on 09-07-2023 Albumin [Mass/Vol] 3.7 g/dL 3.2-5.0 [facility] Serum or plasma albumin/glob ulin mass ratioOrdered By: Rajat Patel on 09-07-2023 Albumin/Globulin [Mass ratio] 0.9 {ratio} 0.9-2.4 [facility] Serum or plasma calcium teressa urement (mass/volume)Ordered By: Rajat Patel on 09-07-2023 Calcium [Mass/Vol] 10.1 mg/dL 8.5-10.1 [facility] Serum or plasma creatinine m easurement (mass/volume)Ordered By: Rajat Patel on 09-07-2023 Creatinine [Mass/Vol] 1.38 mg/dL 0.55-1.02 [facility] Comment on above: The validity of the calculated GFR & GFRAA in patients over 70 years has not been determined. Clinical correlation is essential. Serum or plasma urea nitroge n measurement (mass/volume)Ordered By: Rajat Patel on 09-07-2023 Urea nitrogen [Mass/Vol] 23 mg/dL 7-18 [facility] Thin prep Papanicolaou smear with manual screeningOrdered By: Rajat Patel on 09-07-2023 Thin prep Papanicolaou smear with manual screening 18 U/L 15-37 [facility] Thin prep Papanicolaou smear with manual screening 3 5-15 [facility] Basophil percentageOrdered B y: Rajat Patel on 09-05-2023 Bilirubin [Mass/Vol] 0.40 mg/dL 0.20-1.00 [facility] Comment on above: For patients on eltr ombopag therapy, use of Dimension [place] TBIL is not recommended. Chloride [Moles/Vol] 109 mmol/L 98-107 [facility] Glucose [Mass/Vol] 154 mg/dL 74-106 [facility] Comment on above: Fasting Glucose resu lt greater than or equal to 126 mg/dL suggests DIABETES MELLITUS per A.D.A. criteria. Potassium [Moles/Vol] 4.7 mmol/L 3.5-5.1 [facility] Protein [Mass/Vol] 8.7 g/dL 6.4-8.2 [facility] Sodium [Moles/Vol] 136 mmol/L 136-145 [facility] WBC (Bld) [#/Vol] 8.6 10*3/uL 4.4-11.0 [facility] Blood erythrocytes count (nu mber/volume)Ordered By: Rajat Patel on 09-05-2023 RBC (Bld) [#/Vol] 4.44 10*6/uL 4.2-5.4 [facility] Blood hemoglobin measurement (mass/volume)Ordered By: Rajat Patel on 09-05-2023 Hemoglobin (Bld) [Mass/Vol] 12.7 g/dL 12.0-15.0 [facility] Blood platelet mean volumeOr dered By: Rajat Patel on 09-05-2023 Platelet mean volume (Bld) [Entitic vol] 8.7 fL 6.2-12.0 [facility] Determination of erythrocyte mean corpuscular volume (MCV)Ordered By: Rajat Patel on 09-05-2023 MCV (RBC) [Entitic vol] 91.7 fL 81-99 [facility] Hematocrit Auto (Bld) [Volum e fraction]Ordered By: Rajat Patel on 09-05-2023 Hematocrit (Bld) [Volume fraction] 40.7 % 37-47 [facility] Laboratory - Chemistry and C hemistry - challengeOrdered By: Rajat Patel on 09-05-2023 ALP [Catalytic activity/Vol] 76 U/L 45-117 [facility] ALT [Catalytic activity/Vol] 15 U/L 13-56 [facility] CO2 [Moles/Vol] 22.0 mmol/L 21.0-32.0 [facility] Globulin (S) [Mass/Vol] 4.9 g/dL 2.2-4.2 [facility] Magnesium [Mass/Vol] 2.1 mg/dL 1.6-2.6 [facility] Urea nitrogen/Creatinine [Mass ratio] 14.4 mg/mg 10-20 [facility] Laboratory - Hematology and Cell countsOrdered By: Rajat Patel on 09-05-2023 Erythrocyte distribution width (RBC) [Entitic vol] 52.1 fL 35.1-43.9 [facility] Erythrocyte distribution width (RBC) [Ratio] 15.4 % 11.6-14.6 [facility] MCH (RBC) [Entitic mass] 28.6 pg 27.0-32.0 [facility] MCHC Auto (RBC) [Mass/Vol]Or dered By: Rajat Patel on 09-05-2023 MCHC (RBC) [Mass/Vol] 31.2 g/dL 32-36 [facility] No Panel InformationOrdered By: Rajat Patel on 09-05-2023 Digoxin Level 1.93 ng/mL 0.80-2.00 [facility] Estimated GFR (MDRD) Amer 54 mL/min >60 [facility] Comment on above: GFR Calc Estimated GFR (MDRD) Non-Af Amer 44 mL/min >60 [facility] Comment on above: Non- GFR Calc Platelets bldOrdered By: Ayanna Patel on 09-05-2023 Platelets (Bld) [#/Vol] 361 10*3/uL 150-450 [facility] Serum or plasma albumin teressa urement (mass/volume)Ordered By: Rajat Patel on 09-05-2023 Albumin [Mass/Vol] 3.8 g/dL 3.2-5.0 [facility] Serum or plasma albumin/glob ulin mass ratioOrdered By: Rajat Patel on 09-05-2023 Albumin/Globulin [Mass ratio] 0.8 {ratio} 0.9-2.4 [facility] Serum or plasma calcium teressa urement (mass/volume)Ordered By: Rajat Patel on 09-05-2023 Calcium [Mass/Vol] 9.9 mg/dL 8.5-10.1 [facility] Serum or plasma creatinine m easurement (mass/volume)Ordered By: Rajat Patel on 09-05-2023 Creatinine [Mass/Vol] 1.25 mg/dL 0.55-1.02 [facility] Comment on above: The validity of the calculated GFR & GFRAA in patients over 70 years has not been determined. Clinical correlation is essential. Serum or plasma urea nitroge n measurement (mass/volume)Ordered By: Rajat Patel on 09-05-2023 Urea nitrogen [Mass/Vol] 18 mg/dL 7-18 [facility] Thin prep Papanicolaou smear with manual screeningOrdered By: Rajat Patel on 09-05-2023 Thin prep Papanicolaou smear with manual screening 15 U/L 15-37 [facility] Thin prep Papanicolaou smear with manual screening 5 5-15 [facility] No Panel Informationon 08-20 Digoxin Level 1.01 ng/mL 0.80-2.00 [facility] Laboratory - Chemistry and C hemistry - challengeon 08-06-2023 Cobalamin (Vitamin B12) [Mass/Vol] 471 pg/mL 211-911 [facility] Serum or plasma folate measu rement (mass/volume)on 08-06-2023 Folate [Mass/Vol] 10.50 ng/mL 3.1-55.4 [facility] Basophil percentageOrdered B y: Sharon Wynn on 07-11-2023 Cholesterol [Mass/Vol] 152 mg/dL <200 [facility] Comment on above: <200 mg/dL Desirable 200-240 mg/dL Borderline >240 mg/dL High Risk Triglyceride [Mass/Vol] 109 mg/dL <199 [facility] Comment on above: The drugs N-Acetylcy steine and Metamizole may falsely depress this assay.Serum Triglycerides Reference Interval Normal <150 mg/dL Borderline high 150 - 199 mg/dL High 200 - 499 mg/dL Very High > or = 500 mg/dL Serum or plasma cholesterol in HDL measurement (mass/volume)Ordered By: Sharon Wynn on 07-11-2023 Cholesterol in HDL [Mass/Vol] 49 mg/dL >40 [facility] Comment on above: The drugs N-Acetylcy steine and Metamizole may falsely depress this assay. Reference Range HDL <40 mg/dL Low HDL Cholesterol HDL >or= 60 mg/dL High HDL Cholesterol Serum or plasma cholesterol in VLDL measurement (mass/volume)Ordered By: Sharon Wynn on 07-11-2023 Cholesterol in VLDL [Mass/Vol] 22 mg/dL 5-40 [facility] Serum or plasma low density lipoprotein (LDL) cholesterol measurement (mass/volume)Ordered By: Sharon Wynn on 07-11-2023 Cholesterol in LDL [Mass/Vol] 81 mg/dL 0-130 [facility] Absolute lymphocyte countOrd ered By: Jana Merino on 06-20-2023 Lymphocytes Auto (Unsp spec) [#/Vol] 0.86 10*3/uL 0.83-4.51 [facility] Basophil percentageOrdered B y: Jana Merino on 06-20-2023 Basophils/100 WBC (Bld) 0.4 % 0-1 [facility] Chloride [Moles/Vol] 105 mmol/L 98-107 [facility] Eosinophils/100 WBC (Bld) 0.6 % 0-5 [facility] Glucose [Mass/Vol] 137 mg/dL 74-106 [facility] Comment on above: Fasting Glucose resu lt greater than or equal to 126 mg/dL suggests DIABETES MELLITUS per A.D.A. criteria. Neutrophils (Bld) [#/Vol] 7.5 10*3/uL 2.0-7.7 [facility] Neutrophils/100 WBC (Bld) 80.2 % 47-70 [facility] Potassium [Moles/Vol] 4.3 mmol/L 3.5-5.1 [facility] Sodium [Moles/Vol] 135 mmol/L 136-145 [facility] WBC (Bld) [#/Vol] 9.3 10*3/uL 4.4-11.0 [facility] Blood erythrocytes count (nu mber/volume)Ordered By: Jana Merino on 06-20-2023 RBC (Bld) [#/Vol] 3.30 10*6/uL 4.2-5.4 [facility] Blood hemoglobin measurement (mass/volume)Ordered By: Jana Merino on 06-20-2023 Hemoglobin (Bld) [Mass/Vol] 10.7 g/dL 12.0-15.0 [facility] Blood lymphocytes/100 leukoc ytesOrdered By: Jana Merino on 06-20-2023 Lymphocytes/100 WBC (Bld) 9.2 % 19-41 [facility] Blood monocytes/100 leukocyt esOrdered By: Jana Merino on 06-20-2023 Monocytes/100 WBC (Bld) 9.3 % 0-10 [facility] Blood platelet mean volumeOr dered By: Jana Merino on 06-20-2023 Platelet mean volume (Bld) [Entitic vol] 8.9 fL 6.2-12.0 [facility] Determination of erythrocyte mean corpuscular volume (MCV)Ordered By: Jana Merino on 06-20-2023 MCV (RBC) [Entitic vol] 98.5 fL 81-99 [facility] Hematocrit Auto (Bld) [Volum e fraction]Ordered By: Jana Merino on 06-20-2023 Hematocrit (Bld) [Volume fraction] 32.5 % 37-47 [facility] Laboratory - Chemistry and C hemistry - challengeOrdered By: [facility] CO2 [Moles/Vol] 25.0 mmol/L 21.0-32.0 [facility] Urea nitrogen/Creatinine [Mass ratio] 15.3 mg/mg 10-20 [facility] Laboratory - Hematology and Cell countsOrdered By: [facility] Mer[facility] on 06-20-2023 Erythrocyte distribution width (RBC) [Entitic vol] 54.8 fL 35.1-43.9 [facility] Erythrocyte distribution width (RBC) [Ratio] 15.3 % 11.6-14.6 [facility] Immature granulocytes/100 WBC (Bld) 0.300 % 0.0-0.9 [facility] Comment on above: IG% - Immature Granu locytes (promyelocytes, myelocytes and metamyelocytes) > 1% indicates that a LEFT SHIFT is Present. MCH (RBC) [Entitic mass] 32.4 pg 27.0-32.0 [facility] Nucleated RBC/100 WBC (Bld) [Ratio] 0 % 0-5 [facility] MCHC Auto (RBC) [Mass/Vol]Or dered By: Jana Merino on 06-20-2023 MCHC (RBC) [Mass/Vol] 32.9 g/dL 32-36 [facility] No Panel InformationOrdered By: Jana Merino on 06-20-2023 Estimated Creatinine Clearance Calc 32.42 ml/min [facility] Estimated GFR (MDRD) Amer 48 mL/min >60 [facility] Comment on above: GFR Calc Estimated GFR (MDRD) Non-Af Amer 40 mL/min >60 [facility] Comment on above: Non- GFR Calc Troponin I High Sensitivity 25 pg/mL 3.0-54.0 [facility] Comment on above: Please Note: New [place] t Units and Gender Specific Reference Ranges. For more information see Policy Stat Procedure [place] High Sensitivity Troponin (TNIH) and attachments. Platelets bldOrdered By: Rem us Unglorie on 06-20-2023 Platelets (Bld) [#/Vol] 371 10*3/uL 150-450 [facility] Serum or plasma calcium teressa urement (mass/volume)Ordered By: [facility] on 06-20-2023 Calcium [Mass/Vol] 9.4 mg/dL 8.5-10.1 [facility] Serum or plasma creatinine m easurement (mass/volume)Ordered By: [facility] on 06-20-2023 Creatinine [Mass/Vol] 1.37 mg/dL 0.55-1.02 [facility] Comment on above: The validity of the calculated GFR & GFRAA in patients over 70 years has not been determined. Clinical correlation is essential. Serum or plasma urea nitroge n measurement (mass/volume)Ordered By: [facility] on 06-20-2023 Urea nitrogen [Mass/Vol] 21 mg/dL 7-18 [facility] Thin prep Papanicolaou smear with manual screeningOrdered By: [facility] on 06-20-2023 Thin prep Papanicolaou smear with manual screening 5 5-15 [facility] No Panel InformationOrdered By: Sanam Stubbs on 05-29-2023 Troponin I High Sensitivity 28 pg/mL 3.0-54.0 [facility] Comment on above: Please Note: New [place] t Units and Gender Specific Reference Ranges. For more information see Policy Stat Procedure [place] High Sensitivity Troponin (TNIH) and attachments. Absolute lymphocyte countOrd ered By: ED PROVIDER on 05-28-2023 Lymphocytes Auto (Unsp spec) [#/Vol] 0.91 10*3/uL 0.83-4.51 [facility] Basophil percentageOrdered B y: ED PROVIDER on 05-28-2023 Basophils/100 WBC (Bld) 0.2 % 0-1 [facility] Chloride [Moles/Vol] 105 mmol/L 98-107 [facility] Eosinophils/100 WBC (Bld) 0.5 % 0-5 [facility] Glucose [Mass/Vol] 190 mg/dL 74-106 [facility] Comment on above: Fasting Glucose resu lt greater than or equal to 126 mg/dL suggests DIABETES MELLITUS per A.D.A. criteria. Neutrophils (Bld) [#/Vol] 12.2 10*3/uL 2.0-7.7 [facility] Neutrophils/100 WBC (Bld) 85.4 % 47-70 [facility] Potassium [Moles/Vol] 4.1 mmol/L 3.5-5.1 [facility] Comment on above: Moderate Hemolysis, Result may be falsely increased. Sodium [Moles/Vol] 140 mmol/L 136-145 [facility] WBC (Bld) [#/Vol] 14.3 10*3/uL 4.4-11.0 [facility] Blood erythrocytes count (nu mber/volume)Ordered By: ED PROVIDER on 05-28-2023 RBC (Bld) [#/Vol] 4.74 10*6/uL 4.2-5.4 [facility] Blood hemoglobin measurement (mass/volume)Ordered By: ED PROVIDER on 05-28-2023 Hemoglobin (Bld) [Mass/Vol] 14.6 g/dL 12.0-15.0 [facility] Blood lymphocytes/100 leukoc ytesOrdered By: ED PROVIDER on 05-28-2023 Lymphocytes/100 WBC (Bld) 6.4 % 19-41 [facility] Blood monocytes/100 leukocyt esOrdered By: ED PROVIDER on 05-28-2023 Monocytes/100 WBC (Bld) 7.1 % 0-10 [facility] Blood platelet mean volumeOr dered By: ED PROVIDER on 05-28-2023 Platelet mean volume (Bld) [Entitic vol] 9.2 fL 6.2-12.0 [facility] Determination of erythrocyte mean corpuscular volume (MCV)Ordered By: ED PROVIDER on 05-28-2023 MCV (RBC) [Entitic vol] 93.9 fL 81-99 [facility] Hematocrit Auto (Bld) [Volum e fraction]Ordered By: ED PROVIDER on 05-28-2023 Hematocrit (Bld) [Volume fraction] 44.5 % 37-47 [facility] Laboratory - Chemistry and C hemistry - challengeOrdered By: ED PROVIDER on 05-28-2023 CO2 [Moles/Vol] 26.0 mmol/L 21.0-32.0 [facility] Urea nitrogen/Creatinine [Mass ratio] 10.3 mg/mg 10-20 [facility] Laboratory - Hematology and Cell countsOrdered By: ED PROVIDER on 05-28-2023 Erythrocyte distribution width (RBC) [Entitic vol] 53.6 fL 35.1-43.9 [facility] Erythrocyte distribution width (RBC) [Ratio] 15.6 % 11.6-14.6 [facility] Immature granulocytes/100 WBC (Bld) 0.400 % 0.0-0.9 [facility] Comment on above: IG% - Immature Granu locytes (promyelocytes, myelocytes and metamyelocytes) > 1% indicates that a LEFT SHIFT is Present. MCH (RBC) [Entitic mass] 30.8 pg 27.0-32.0 [facility] Nucleated RBC/100 WBC (Bld) [Ratio] 0 % 0-5 [facility] MCHC Auto (RBC) [Mass/Vol]Or dered By: ED PROVIDER on 05-28-2023 MCHC (RBC) [Mass/Vol] 32.8 g/dL 32-36 [facility] No Panel InformationOrdered By: ED PROVIDER on 05-28-2023 Estimated GFR (MDRD) Amer 37 mL/min >60 [facility] Comment on above: GFR Calc Estimated GFR (MDRD) Non-Af Amer 30 mL/min >60 [facility] Comment on above: Non- GFR Calc Platelets bldOrdered By: ED PROVIDER on 05-28-2023 Platelets (Bld) [#/Vol] 255 10*3/uL 150-450 [facility] Serum or plasma calcium teressa urement (mass/volume)Ordered By: ED PROVIDER on 05-28-2023 Calcium [Mass/Vol] 9.8 mg/dL 8.5-10.1 [facility] Serum or plasma creatinine m easurement (mass/volume)Ordered By: ED PROVIDER on 05-28-2023 Creatinine [Mass/Vol] 1.75 mg/dL 0.55-1.02 [facility] Comment on above: The validity of the calculated GFR & GFRAA in patients over 70 years has not been determined. Clinical correlation is essential. Serum or plasma urea nitroge n measurement (mass/volume)Ordered By: ED PROVIDER on 05-28-2023 Urea nitrogen [Mass/Vol] 18 mg/dL 7-18 [facility] Thin prep Papanicolaou smear with manual screeningOrdered By: ED PROVIDER on 05-28-2023 Thin prep Papanicolaou smear with manual screening 9 5-15 [facility] Basophil percentageOrdered B y: Sharon Wynn on 05-25-2023 Chloride [Moles/Vol] 107 mmol/L 98-107 [facility] Glucose [Mass/Vol] 284 mg/dL 74-106 [facility] Comment on above: Glucose result great er than or equal to 200 mg/dLsuggests DIABETES MELLITUS per A.D.A. criteria. Potassium [Moles/Vol] 3.7 mmol/L 3.5-5.1 [facility] Sodium [Moles/Vol] 137 mmol/L 136-145 [facility] Laboratory - Chemistry and C hemistry - challengeOrdered By: Sharon Wynn on 05-25-2023 CO2 [Moles/Vol] 24.0 mmol/L 21.0-32.0 [facility] Urea nitrogen/Creatinine [Mass ratio] 9.7 mg/mg 10-20 [facility] No Panel InformationOrdered By: Sharon Wynn on 05-25-2023 Estimated GFR (MDRD) Amer 39 mL/min >60 [facility] Comment on above: GFR Calc Estimated GFR (MDRD) Non-Af Amer 32 mL/min >60 [facility] Comment on above: Non- GFR Calc Serum or plasma calcium teressa urement (mass/volume)Ordered By: Sharon Wynn on 05-25-2023 Calcium [Mass/Vol] 9.1 mg/dL 8.5-10.1 [facility] Serum or plasma creatinine m easurement (mass/volume)Ordered By: Sharon Wynn on 05-25-2023 Creatinine [Mass/Vol] 1.65 mg/dL 0.55-1.02 [facility] Comment on above: The validity of the calculated GFR & GFRAA in patients over 70 years has not been determined. Clinical correlation is essential. Serum or plasma urea nitroge n measurement (mass/volume)Ordered By: Sharon Wynn on 05-25-2023 Urea nitrogen [Mass/Vol] 16 mg/dL 7-18 [facility] Thin prep Papanicolaou smear with manual screeningOrdered By: Sharon Wynn on 05-25-2023 Thin prep Papanicolaou smear with manual screening 6 5-15 [facility] Basophil percentageOrdered B y: Sharon Wynn on 05-24-2023 Chloride [Moles/Vol] 105 mmol/L 98-107 [facility] Glucose [Mass/Vol] 162 mg/dL 74-106 [facility] Comment on above: Fasting Glucose resu lt greater than or equal to 126 mg/dL suggests DIABETES MELLITUS per A.D.A. criteria. Potassium [Moles/Vol] 3.9 mmol/L 3.5-5.1 [facility] Sodium [Moles/Vol] 137 mmol/L 136-145 [facility] Laboratory - Chemistry and C hemistry - challengeOrdered By: Sharon Wynn on 05-24-2023 CO2 [Moles/Vol] 25.0 mmol/L 21.0-32.0 [facility] Urea nitrogen/Creatinine [Mass ratio] 10.8 mg/mg 10-20 [facility] No Panel InformationOrdered By: Sharon Wynn on 05-24-2023 Estimated Creatinine Clearance Calc 26.25 ml/min [facility] Estimated GFR (MDRD) Amer 36 mL/min >60 [facility] Comment on above: GFR Calc Estimated GFR (MDRD) Non-Af Amer 30 mL/min >60 [facility] Comment on above: Non- GFR Calc Serum or plasma calcium teressa urement (mass/volume)Ordered By: Sharon Wynn on 05-24-2023 Calcium [Mass/Vol] 9.6 mg/dL 8.5-10.1 [facility] Serum or plasma creatinine m easurement (mass/volume)Ordered By: Sharon Wynn on 05-24-2023 Creatinine [Mass/Vol] 1.76 mg/dL 0.55-1.02 [facility] Comment on above: The validity of the calculated GFR & GFRAA in patients over 70 years has not been determined. Clinical correlation is essential. Serum or plasma urea nitroge n measurement (mass/volume)Ordered By: Sharon Wynn on 05-24-2023 Urea nitrogen [Mass/Vol] 19 mg/dL 7-18 [facility] Thin prep Papanicolaou smear with manual screeningOrdered By: Sharon Wynn on 05-24-2023 Thin prep Papanicolaou smear with manual screening 7 5-15 [facility] INR in Blood by Coagulation assayOrdered By: Sharon Wynn on 05-23-2023 INR Coag (Bld) [Relative time] 1.1 {INR} [facility] Laboratory - CoagulationOrde red By: Sharon Wynn on 05-23-2023 aPTT Coag (Bld) [Time] 28.7 s 24.1-36.2 [facility] PT Coag (PPP) [Time] 13.7 s 11.7-14.9 [facility] Absolute lymphocyte countOrd ered By: Sharon Wynn on 05-08-2023 Lymphocytes Auto (Unsp spec) [#/Vol] 1.98 10*3/uL 0.83-4.51 [facility] Basophil percentageOrdered B y: Sharon Wynn on 05-08-2023 Basophils/100 WBC (Bld) 0.5 % 0-1 [facility] Eosinophils/100 WBC (Bld) 0.5 % 0-5 [facility] Neutrophils (Bld) [#/Vol] 5.6 10*3/uL 2.0-7.7 [facility] Neutrophils/100 WBC (Bld) 64.6 % 47-70 [facility] WBC (Bld) [#/Vol] 8.7 10*3/uL 4.4-11.0 [facility] Basophil percentageOrdered B y: Rajat Patel on 05-08-2023 Bilirubin [Mass/Vol] 0.60 mg/dL 0.20-1.00 [facility] Comment on above: For patients on eltr ombopag therapy, use of Dimension [place] TBIL is not recommended. Chloride [Moles/Vol] 104 mmol/L 98-107 [facility] Glucose [Mass/Vol] 122 mg/dL 74-106 [facility] Comment on above: Fasting Glucose resu lt from 100 to 125 mg/dL suggests IMPAIRED HOMEOSTASIS per A.D.A. criteria. Potassium [Moles/Vol] 4.1 mmol/L 3.5-5.1 [facility] Protein [Mass/Vol] 7.8 g/dL 6.4-8.2 [facility] Sodium [Moles/Vol] 137 mmol/L 136-145 [facility] Blood erythrocytes count (nu mber/volume)Ordered By: Sharon Wynn on 05-08-2023 RBC (Bld) [#/Vol] 4.29 10*6/uL 4.2-5.4 [facility] Blood hemoglobin measurement (mass/volume)Ordered By: Sharon Wynn on 05-08-2023 Hemoglobin (Bld) [Mass/Vol] 13.0 g/dL 12.0-15.0 [facility] Blood lymphocytes/100 leukoc ytesOrdered By: Sharonchuck Wynn on 05-08-2023 Lymphocytes/100 WBC (Bld) 22.7 % 19-41 [facility] Blood monocytes/100 leukocyt esOrdered By: Sharonchuck Wynn on 05-08-2023 Monocytes/100 WBC (Bld) 11.4 % 0-10 [facility] Blood platelet mean volumeOr dered By: Sharon Wynn on 05-08-2023 Platelet mean volume (Bld) [Entitic vol] 9.5 fL 6.2-12.0 [facility] Determination of erythrocyte mean corpuscular volume (MCV)Ordered By: Sharon Wynn on 05-08-2023 MCV (RBC) [Entitic vol] 92.1 fL 81-99 [facility] Hematocrit Auto (Bld) [Volum e fraction]Ordered By: Sharon Wynn on 05-08-2023 Hematocrit (Bld) [Volume fraction] 39.5 % 37-47 [facility] Laboratory - Chemistry and C hemistry - challengeOrdered By: Rajat Patel on 05-08-2023 ALP [Catalytic activity/Vol] 74 U/L 45-117 [facility] ALT [Catalytic activity/Vol] 20 U/L 13-56 [facility] CO2 [Moles/Vol] 22.0 mmol/L 21.0-32.0 [facility] Cobalamin (Vitamin B12) [Mass/Vol] 588 pg/mL 211-911 [facility] Free T4 [Mass/Vol] 1.30 ng/dL 0.76-1.46 [facility] Globulin (S) [Mass/Vol] 3.8 g/dL 2.2-4.2 [facility] Urea nitrogen/Creatinine [Mass ratio] 11.7 mg/mg 10-20 [facility] Laboratory - Hematology and Cell countsOrdered By: Sharon Wynn on 05-08-2023 Erythrocyte distribution width (RBC) [Entitic vol] 52.6 fL 35.1-43.9 [facility] Erythrocyte distribution width (RBC) [Ratio] 15.6 % 11.6-14.6 [facility] Immature granulocytes/100 WBC (Bld) 0.300 % 0.0-0.9 [facility] Comment on above: IG% - Immature Granu locytes (promyelocytes, myelocytes and metamyelocytes) > 1% indicates that a LEFT SHIFT is Present. MCH (RBC) [Entitic mass] 30.3 pg 27.0-32.0 [facility] Nucleated RBC/100 WBC (Bld) [Ratio] 0 % 0-5 [facility] MCHC Auto (RBC) [Mass/Vol]Or dered By: Sharon Wynn on 05-08-2023 MCHC (RBC) [Mass/Vol] 32.9 g/dL 32-36 [facility] No Panel InformationOrdered By: Rajat Patel on 05-08-2023 Estimated GFR (MDRD) Amer 35 mL/min >60 [facility] Comment on above: GFR Calc Estimated GFR (MDRD) Non-Af Amer 29 mL/min >60 [facility] Comment on above: Non- GFR Calc Thyroid Stimulating Hormone (TSH) 3.91 uIU/mL 0.358-3.74 [facility] Platelets bldOrdered By: Erika Wnyn on 05-08-2023 Platelets (Bld) [#/Vol] 286 10*3/uL 150-450 [facility] Serum or plasma albumin teressa urement (mass/volume)Ordered By: Rajat Patel on 05-08-2023 Albumin [Mass/Vol] 4.0 g/dL 3.2-5.0 [facility] Serum or plasma albumin/glob ulin mass ratioOrdered By: Rajat Patel on 05-08-2023 Albumin/Globulin [Mass ratio] 1.1 {ratio} 0.9-2.4 [facility] Serum or plasma calcium teressa urement (mass/volume)Ordered By: Rajat Patel on 05-08-2023 Calcium [Mass/Vol] 9.4 mg/dL 8.5-10.1 [facility] Serum or plasma creatinine m easurement (mass/volume)Ordered By: Rajat Patel on 05-08-2023 Creatinine [Mass/Vol] 1.80 mg/dL 0.55-1.02 [facility] Comment on above: The validity of the calculated GFR & GFRAA in patients over 70 years has not been determined. Clinical correlation is essential. Serum or plasma folate measu rement (mass/volume)Ordered By: Rajat Patel on 05-08-2023 Folate [Mass/Vol] 10.00 ng/mL 3.1-55.4 [facility] Serum or plasma urea nitroge n measurement (mass/volume)Ordered By: Rajat Patel on 05-08-2023 Urea nitrogen [Mass/Vol] 21 mg/dL 7-18 [facility] Thin prep Papanicolaou smear with manual screeningOrdered By: Rajat Patel on 05-08-2023 Thin prep Papanicolaou smear with manual screening 20 U/L 15-37 [facility] Thin prep Papanicolaou smear with manual screening 11 5-15 [facility] Whole blood hemoglobin A1c/t otal hemoglobin ratio (mass fraction)Ordered By: Rajat Patel on 05-08-2023 HbA1c (Bld) [Mass fraction] 7.0 % 3.8-5.6 [facility] Comment on above: Normal < 5.7 % Predi abetic 5.7 - 6.4 % Diabetic >or= 6.5 % Please note range changes. Glucose Glucometer (BldC) [M ass/Vol]Ordered By: Dr. Michaud on 03-25-2023 Glucose [Mass/Vol] 101 mg/dL 74-106 [facility] Comment on above: MANAGEMENT OF PATIEN T CARE PER NURSING PROTOCOL Basophil percentageOrdered B y: Dr. Michaud on 03-24-2023 Chloride [Moles/Vol] 109 mmol/L 98-107 [facility] Glucose [Mass/Vol] 79 mg/dL 74-106 [facility] Potassium [Moles/Vol] 3.7 mmol/L 3.5-5.1 [facility] Sodium [Moles/Vol] 139 mmol/L 136-145 [facility] Laboratory - Chemistry and C hemistry - challengeOrdered By: Dr. Michaud on 03-24-2023 CO2 [Moles/Vol] 20.0 mmol/L 21.0-32.0 [facility] Magnesium [Mass/Vol] 2.1 mg/dL 1.6-2.6 [facility] Urea nitrogen/Creatinine [Mass ratio] 16.0 mg/mg 10-20 [facility] No Panel InformationOrdered By: Dr. Michaud on 03-24-2023 Estimated Creatinine Clearance Calc 43.59 ml/min [facility] Estimated GFR (MDRD) Amer 65 mL/min >60 [facility] Comment on above: GFR Calc Estimated GFR (MDRD) Non-Af Amer 54 mL/min >60 [facility] Comment on above: Non- GFR Calc Serum or plasma calcium teressa urement (mass/volume)Ordered By: Dr. Michaud on 03-24-2023 Calcium [Mass/Vol] 9.7 mg/dL 8.5-10.1 [facility] Serum or plasma creatinine m easurement (mass/volume)Ordered By: Dr. Michaud on 03-24-2023 Creatinine [Mass/Vol] 1.06 mg/dL 0.55-1.02 [facility] Comment on above: The validity of the calculated GFR & GFRAA in patients over 70 years has not been determined. Clinical correlation is essential. Serum or plasma urea nitroge n measurement (mass/volume)Ordered By: Dr. Michaud on 03-24-2023 Urea nitrogen [Mass/Vol] 17 mg/dL 7-18 [facility] Thin prep Papanicolaou smear with manual screeningOrdered By: Dr. Michaud on 03-24-2023 Thin prep Papanicolaou smear with manual screening 10 5-15 [facility] Absolute lymphocyte countOrd ered By: Dr. Michaud on 03-23-2023 Lymphocytes Auto (Unsp spec) [#/Vol] 1.07 10*3/uL 0.83-4.51 [facility] Basophil percentageOrdered B y: Dr. Michaud on 03-23-2023 Basophils/100 WBC (Bld) 0.1 % 0-1 [facility] Bilirubin [Mass/Vol] 0.70 mg/dL 0.20-1.00 [facility] Comment on above: For patients on eltr ombopag therapy, use of Dimension [place] TBIL is not recommended. Eosinophils/100 WBC (Bld) 0.4 % 0-5 [facility] Neutrophils (Bld) [#/Vol] 5.5 10*3/uL 2.0-7.7 [facility] Neutrophils/100 WBC (Bld) 75.1 % 47-70 [facility] Protein [Mass/Vol] 6.9 g/dL 6.4-8.2 [facility] WBC (Bld) [#/Vol] 7.3 10*3/uL 4.4-11.0 [facility] Blood erythrocytes count (nu mber/volume)Ordered By: Dr. Michaud on 03-23-2023 RBC (Bld) [#/Vol] 3.97 10*6/uL 4.2-5.4 [facility] Blood hemoglobin measurement (mass/volume)Ordered By: Dr. Michaud on 03-23-2023 Hemoglobin (Bld) [Mass/Vol] 11.8 g/dL 12.0-15.0 [facility] Blood lymphocytes/100 leukoc ytesOrdered By: Dr. Michaud on 03-23-2023 Lymphocytes/100 WBC (Bld) 14.7 % 19-41 [facility] Blood monocytes/100 leukocyt esOrdered By: Dr. Michaud on 03-23-2023 Monocytes/100 WBC (Bld) 9.6 % 0-10 [facility] Blood platelet mean volumeOr dered By: Dr. Michaud on 03-23-2023 Platelet mean volume (Bld) [Entitic vol] 9.4 fL 6.2-12.0 [facility] Culture, urineOrdered By: Dr Rubén Michaud on 03-23-2023 Bacteria identified Cx Nom (U) Presumptive E. coli [facility] Determination of erythrocyte mean corpuscular volume (MCV)Ordered By: Dr. Michaud on 03-23-2023 MCV (RBC) [Entitic vol] 90.2 fL 81-99 [facility] Direct bilirubinOrdered By: Dr. Michaud on 03-23-2023 Bilirubin.direct [Mass/Vol] 0.23 mg/dL 0.00-0.30 [facility] Hematocrit Auto (Bld) [Volum e fraction]Ordered By: Dr. Michaud on 03-23-2023 Hematocrit (Bld) [Volume fraction] 35.8 % 37-47 [facility] Laboratory - Chemistry and C hemistry - challengeOrdered By: Dr. Michaud on 03-23-2023 ALP [Catalytic activity/Vol] 79 U/L 45-117 [facility] ALT [Catalytic activity/Vol] 27 U/L 13-56 [facility] Globulin (S) [Mass/Vol] 3.7 g/dL 2.2-4.2 [facility] Laboratory - Hematology and Cell countsOrdered By: Dr. Michaud on 03-23-2023 Erythrocyte distribution width (RBC) [Entitic vol] 48.8 fL 35.1-43.9 [facility] Erythrocyte distribution width (RBC) [Ratio] 14.9 % 11.6-14.6 [facility] Immature granulocytes/100 WBC (Bld) 0.100 % 0.0-0.9 [facility] Comment on above: IG% - Immature Granu locytes (promyelocytes, myelocytes and metamyelocytes) > 1% indicates that a LEFT SHIFT is Present. MCH (RBC) [Entitic mass] 29.7 pg 27.0-32.0 [facility] Nucleated RBC/100 WBC (Bld) [Ratio] 0 % 0-5 [facility] MCHC Auto (RBC) [Mass/Vol]Or dered By: Dr. Michaud on 03-23-2023 MCHC (RBC) [Mass/Vol] 33.0 g/dL 32-36 [facility] Platelets bldOrdered By: Dr. Michaud on 03-23-2023 Platelets (Bld) [#/Vol] 197 10*3/uL 150-450 [facility] Serum or plasma albumin teressa urement (mass/volume)Ordered By: Dr. Michaud on 03-23-2023 Albumin [Mass/Vol] 3.2 g/dL 3.2-5.0 [facility] Thin prep Papanicolaou smear with manual screeningOrdered By: Dr. Michaud on 03-23-2023 Thin prep Papanicolaou smear with manual screening 15 U/L 15-37 [facility] Basophil percentageOrdered B y: Dr. Rod on 03-21-2023 Basophil percentage 0-5 SEEN /hpf 0-5 [facility] Bilirubin Test strip Ql (U)O rdered By: Dr. Rod on 03-21-2023 Bilirubin Ql (U) Negative Negative [facility] Culture, urineOrdered By: Rod Michaud on 03-21-2023 Bacteria identified Cx Nom (U) Presumptive E. coli [facility] Ketones Test strip Ql (U)Ord ered By: Dr. Rod on 03-21-2023 Ketones Ql (U) 15 mg/dl Negative [facility] Mucus LM Ql (Urine sed)Order ed By: Dr. Rod on 03-21-2023 Mucus Ql (Urine sed) 0 SEEN /hpf [facility] Nitrite Test strip Ql (U)Ord ered By: Dr. Rod on 03-21-2023 Nitrite Ql (U) Positive Negative [facility] Protein Test strip Ql (U)Ord ered By: Dr. Rod on 03-21-2023 Protein Ql (U) 30 mg/dl Negative [facility] Squamous epithelial cells de tection in urine sediment by light microscopyOrdered By: Dr. Rod on 03-21-2023 Epithelial cells.squamous LM Ql (Urine sed) 0-5 SEEN /hpf 5-10 [facility] Urine blood detectionOrdered By: Dr. Rod on 03-21-2023 RBC Ql (U) 150 /ul Negative [facility] RBC Ql (U) 10-25 SEEN /hpf 0-5 [facility] Urine clarityOrdered By: Dr. Rod on 03-21-2023 Clarity (U) Sl. Cloudy Clear [facility] Urine color determinationOrd ered By: Dr. Rod on 03-21-2023 Color (U) Yellow Yellow [facility] Urine glucose detectionOrder ed By: Dr. Rod on 03-21-2023 Glucose Ql (U) 250 mg/dl Normal [facility] Urine leukocyte esterase det ection by dipstickOrdered By: Dr. Rod on 03-21-2023 Leukocyte esterase Test strip Ql (U) 25 /ul Negative [facility] Urine pHOrdered By: Dr. Sharmila wing on 03-21-2023 pH (U) 5.0 [pH] 5.0 - 8.0 [facility] Urine sediment bacteria coun t by microscopy (number/high power field)Ordered By: Dr. Rod on 03-21-2023 Bacteria LM.HPF (Urine sed) [#/Area] 1 /[HPF] None Seen [facility] Urine specific gravity measu rementOrdered By: Dr. Rod on 03-21-2023 Specific gravity (U) [Rel density] 1.015 1.002-1.03 0 [facility] Urobilinogen Auto test strip Ql (U)Ordered By: Dr. Rod on 03-21-2023 Urobilinogen Ql (U) Normal mg/dl Normal [facility] Basophil percentageOrdered B y: Dr. Rod on 03-20-2023 Basophil percentage 3.7 mg/dL 2.5-4.9 [facility] No Panel InformationOrdered By: Dr. Rod on 03-20-2023 Thyroid Stimulating Hormone (TSH) 1.17 uIU/mL 0.358-3.74 [facility] Absolute lymphocyte countOrd ered By: Dr. Stubbs on 03-19-2023 Lymphocytes Auto (Unsp spec) [#/Vol] 2.60 10*3/uL 0.83-4.51 [facility] Basophil percentageOrdered B y: Dr. Stubbs on 03-19-2023 Basophils/100 WBC (Bld) 0.6 % 0-1 [facility] Chloride [Moles/Vol] 109 mmol/L 98-107 [facility] Eosinophils/100 WBC (Bld) 1.1 % 0-5 [facility] Glucose [Mass/Vol] 205 mg/dL 74-106 [facility] Comment on above: Glucose result great er than or equal to 200 mg/dLsuggests DIABETES MELLITUS per A.D.A. criteria. Neutrophils (Bld) [#/Vol] 5.7 10*3/uL 2.0-7.7 [facility] Neutrophils/100 WBC (Bld) 61.1 % 47-70 [facility] Potassium [Moles/Vol] 5.2 mmol/L 3.5-5.1 [facility] Sodium [Moles/Vol] 137 mmol/L 136-145 [facility] WBC (Bld) [#/Vol] 9.4 10*3/uL 4.4-11.0 [facility] Blood erythrocytes count (nu mber/volume)Ordered By: Dr. Stubbs on 03-19-2023 RBC (Bld) [#/Vol] 3.95 10*6/uL 4.2-5.4 [facility] Blood hemoglobin measurement (mass/volume)Ordered By: Dr. Stubbs on 03-19-2023 Hemoglobin (Bld) [Mass/Vol] 11.8 g/dL 12.0-15.0 [facility] Blood lymphocytes/100 leukoc ytesOrdered By: Dr. Stubbs on 03-19-2023 Lymphocytes/100 WBC (Bld) 27.8 % 19-41 [facility] Blood monocytes/100 leukocyt esOrdered By: Dr. Stubbs on 03-19-2023 Monocytes/100 WBC (Bld) 8.9 % 0-10 [facility] Blood platelet mean volumeOr dered By: Dr. Stubbs on 03-19-2023 Platelet mean volume (Bld) [Entitic vol] 10.1 fL 6.2-12.0 [facility] Determination of erythrocyte mean corpuscular volume (MCV)Ordered By: Dr. Stubbs on 03-19-2023 MCV (RBC) [Entitic vol] 94.7 fL 81-99 [facility] Glucose Glucometer (BldC) [M ass/Vol]Ordered By: Dr. Stubbs on 06-19-2023 Glucose [Mass/Vol] 185 mg/dL 74-106 [facility] Comment on above: MANAGEMENT OF PATIEN T CARE PER NURSING PROTOCOL Hematocrit Auto (Bld) [Volum e fraction]Ordered By: Dr. Stubbs on 03-19-2023 Hematocrit (Bld) [Volume fraction] 37.4 % 37-47 [facility] Laboratory - Chemistry and C hemistry - challengeOrdered By: Dr. Stubbs on 03-19-2023 CO2 [Moles/Vol] 18.0 mmol/L 21.0-32.0 [facility] Urea nitrogen/Creatinine [Mass ratio] 19.8 mg/mg 10-20 [facility] Laboratory - Hematology and Cell countsOrdered By: Dr. Stubbs on 03-19-2023 Erythrocyte distribution width (RBC) [Entitic vol] 53.3 fL 35.1-43.9 [facility] Erythrocyte distribution width (RBC) [Ratio] 15.5 % 11.6-14.6 [facility] Immature granulocytes/100 WBC (Bld) 0.500 % 0.0-0.9 [facility] Comment on above: IG% - Immature Granu locytes (promyelocytes, myelocytes and metamyelocytes) > 1% indicates that a LEFT SHIFT is Present. MCH (RBC) [Entitic mass] 29.9 pg 27.0-32.0 [facility] Nucleated RBC/100 WBC (Bld) [Ratio] 0 % 0-5 [facility] MCHC Auto (RBC) [Mass/Vol]Or dered By: Dr. Stubbs on 03-19-2023 MCHC (RBC) [Mass/Vol] 31.6 g/dL 32-36 [facility] No Panel InformationOrdered By: Dr. Stubbs on 03-19-2023 Troponin I High Sensitivity 27 pg/mL 3.0-54.0 [facility] Comment on above: Please Note: New Orly t Units and Gender Specific Reference Ranges. For more information see Policy Stat Procedure [place] High Sensitivity Troponin (TNIH) and attachments. Estimated Creatinine Clearance Calc 21.99 ml/min [facility] Estimated GFR (MDRD) Amer 31 mL/min >60 [facility] Comment on above: GFR Calc Estimated GFR (MDRD) Non-Af Amer 26 mL/min >60 [facility] Comment on above: Non- GFR Calc Troponin I High Sensitivity 20 pg/mL 3.0-54.0 [facility] Comment on above: Please Note: New Orly t Units and Gender Specific Reference Ranges. For more information see Policy Stat Procedure [place] High Sensitivity Troponin (TNIH) and attachments. Platelets bldOrdered By: Dr. Stubbs on 03-19-2023 Platelets (Bld) [#/Vol] 230 10*3/uL 150-450 [facility] Serum or plasma calcium teressa urement (mass/volume)Ordered By: Dr. Stubbs on 03-19-2023 Calcium [Mass/Vol] 9.3 mg/dL 8.5-10.1 [facility] Serum or plasma creatinine m easurement (mass/volume)Ordered By: Dr. Stubbs on 03-19-2023 Creatinine [Mass/Vol] 2.02 mg/dL 0.55-1.02 [facility] Comment on above: The validity of the calculated GFR & GFRAA in patients over 70 years has not been determined. Clinical correlation is essential. Serum or plasma urea nitroge n measurement (mass/volume)Ordered By: Dr. Stubbs on 03-19-2023 Urea nitrogen [Mass/Vol] 40 mg/dL 7-18 [facility] Thin prep Papanicolaou smear with manual screeningOrdered By: Dr. Stubbs on 03-19-2023 Thin prep Papanicolaou smear with manual screening 10 5-15 [facility] Chart Maintenanceon 08-09-20 17 HbA1c 6.5 % Invalid Interpretation Code [facility] Work Phone: Clinical Lists Update: Clini deana Noteon 03-20-2017 Left ventricular Ejection fraction 60 % Invalid Interpretation Code [facility] Work Phone: [phone] Office Visiton 02-20-2017 Documentation of current medications (procedure) Done Invalid Interpretation Code [facility] Work Phone: [phone] Fall risk assessment No Invalid Interpretation Code [facility] Work Phone: [phone] Replaced Document: Humberto FORD Observationson 02-20-2017 EKG QRS axis -39 deg [facility] Work Phone: [phone] electrocardiogram interpretation Atrial fibrillation -Nonspecific QRS widening and anterior fascicular block. - Nonspecific T-abnormality. ABNORMAL Invalid Interpretation Code [employer] Phone: [phone] GE use only - for [employer] import when terms are not otherwise specified 411 ms Invalid Interpretation Code [facility] Work Phone: [phone] Interpretation Atrial fibrillation -Nonspecific QRS widening and anterior fascicular block. - Nonspecific T-abnormality. ABNORMAL [facility] Work Phone: [phone] P [place] 1 deg [facility] Work Phone: [phone] P wave axis, electrocardiogram 1 deg Invalid Interpretation Code [facility] Work Phone: [phone] [place] Interval 0 ms [facility] Work Phone: [phone] [place] interval, electrocardiogram 0 ms Invalid Interpretation Code [facility] Phone: [phone] Pulse (Heart Rate) 77 /min Invalid Interpretation Code [facility] Phone: [phone] QRS axis, electrocardiogram -39 deg Invalid Interpretation Code [facility] Phone: [phone] QRS Duration 128 ms [employer] [facility] Work Phone: [phone] QRS duration, electrocardiogram 128 ms Invalid Interpretation Code [facility] Phone: [phone] QT Interval new path ms [employer] [facility] Work Phone: [phone] QT interval, electrocardiogram new path ms Invalid Interpretation Code [facility] Phone: [phone] QTc [place] 411 ms [employer] [facility] Work Phone: [phone] T [place] 90 deg [employer] [facility] Work Phone: [phone] T wave axis, electrocardiogram 90 deg Invalid Interpretation Code [facility] Phone: [phone] Clinical Lists Update: Pre02-19-2017 Left ventricular Ejection fraction 55 % Invalid Interpretation Code [facility] Phone: [phone] Clinical Lists Update: 01-10-2017 Albumin [Mass/Vol] 4.0 g/dL Invalid Interpretation Code [facility] Phone: [phone] Albumin/Globulin [Mass ratio] 1.1 {ratio} Invalid Interpretation Code [employer] [facility] Work Phone: [phone] Alkaline phosphatase (ALP) 67 U/L Invalid Interpretation Code [facility] Work Phone: [phone] ALP (Bld) [Catalytic activity/Vol] 67 U/L [facility] Work Phone: [phone] ALT [Catalytic activity/Vol] 22 U/L Invalid Interpretation Code [facility] Work Phone: [phone] Anion gap 8 mmol/L Invalid Interpretation Code [facility] Work Phone: [phone] Anion gap [Moles/Vol] 8 mmol/L [employer] Work Phone: [phone] AST [Catalytic activity/Vol] 16 U/L Invalid Interpretation Code [facility] Work Phone: [phone] Bilirubin [Mass/Vol] 0.50 mg/dL Invalid Interpretation Code [facility] Work Phone: [phone] Calcium [Mass/Vol] 9.4 mg/dL Invalid Interpretation Code [facility] Work Phone: [phone] Chloride [Moles/Vol] 105 mmol/L Invalid Interpretation Code [employer] [facility] Work Phone: [phone] CO2 28.0 mmol/L Invalid Interpretation Code [facility] Work Phone: [phone] CO2 (BldV) [Partial pressure] 28.0 mmol/L [facility] Work Phone: [phone] Creatinine [Mass/Vol] 1.28 mg/dL High [employer] Work Phone: [phone] eGFR (non-black) 53 mL/min/{1.73_m2} Low [employer] Work Phone: [phone] Free T4 [Mass/Vol] 0.95 ng/dL Invalid Interpretation Code [employer] Work Phone: [phone] GFR/1.73 sq M predicted among non-blacks MDRD (S/P/Bld) [Vol rate/Area] 44 mL/min/{1.73_m2} Low [employer] Work Phone: [phone] Globulin 3.6 g/dL High [employer] Work Phone: [phone] Globulin (S) [Mass/Vol] 3.6 g/dL High [facility] Work Phone: [phone] Glomerular Filtration Rate 53 mL/min/1.73m2 Low [facility] Work Phone: [phone] Glucose 122 mg/dL High [facility] Work Phone: [phone] Glucose [Mass/Vol] 122 mg/dL High [facility] Work Phone: [phone] Potassium [Moles/Vol] 4.2 mmol/L Invalid Interpretation Code [facility] Work Phone: [phone] Protein [Mass/Vol] 7.6 g/dL Invalid Interpretation Code [facility] Work Phone: [phone] Sodium [Moles/Vol] 141 mmol/L Invalid Interpretation Code [facility] Work Phone: [phone] T4 [Mass/Vol] 8.3 ug/dL Invalid Interpretation Code [facility] Work Phone: [phone] TSH Qn 9.65 u[iU]/mL High [facility] Work Phone: [phone] Urea nitrogen [Mass/Vol] 21 mg/dL High [facility] Work Phone: [phone] Urea nitrogen/Creatinine [Mass ratio] 16.4 mg/mg Invalid Interpretation Code [facility] Work Phone: [phone] Append: Cardiac Referralon 1 11-07-2015 Clinical consultation report (record artifact) [id number]^03/13/2016 Invalid Interpretation Code [facility] Work Phone: [phone] Office Visit: [facility] 03-08-20 16 Dietary management education, guidance, and counseling (procedure) yes Invalid Interpretation Code [facility] Work Phone: [phone] Replaced Document: [facility] E CG Observationson 03-08-2016 EKG QRS axis -42 deg [facility] Work Phone: [phone] Interpretation Possible atrial fibrillation -Intraventricular conduction defect and left axis -possible anterior fascicular block consider ventricular hypertrophy. ABNORMAL [email or web address] Work Phone: [phone] P [place] 1 deg [facility] Work Phone: [phone] [place] Interval 0 ms [facility] Work Phone: [phone] QRS Duration 136 ms [facility] Work Phone: 1 QT Interval new path ms [facility] Work Phone: [phone] QTc [place] 445 ms [facility] Work Phone: [phone] T [place] 45 deg [facility] Work Phone: [phone] Office Visiton 11-09-2015 Tobacco smoking status NHIS Tobacco smoking status NHIS Invalid Interpretation Code [facility] Work Phone: Tobacco smoking status CAIS Former smoker [facility] Work Phone: [phone] Tobacco use [facility] Former smoker Invalid Interpretation Code [facility] Work Phone: [phone] Office Visiton 10-06-2015 cardiac risk group C Invalid Interpretation Code [facility] Work Phone: [phone] General cardiovascular disease 10Y risk [#] [place] Not enough information Invalid Interpretation Code [facility] Work Phone: [phone] Clinical Lists Update: P[employer] glass [employer] 08-10-2015 Erythrocytes (RBC) 3.95 10*6/uL [facility] Work Phone: [phone] Hematocrit (Bld) [Volume fraction] 37.6 % [facility] Work Phone: [phone] Hematocrit (HCT) 37.6 % Invalid Interpretation Code [facility] Work Phone: [phone] Hemoglobin (Bld) [Mass/Vol] 12.7 g/dL Invalid Interpretation Code [facility] Work Phone: [phone] Natriuretic peptide B (Bld) [Mass/Vol] 338.2 pg/mL High [facility] Work Phone: [phone] Platelets 197 10*3/mm3 Invalid Interpretation Code [facility] Work Phone: [phone] Platelets (Bld) [#/Vol] 197 10*3/mm3 [facility] Work Phone: [phone] RBC (Bld) [#/Vol] 3.95 10*6/uL Low [facility] Work Phone: [phone] WBC (Bld) [#/Vol] 10.5 10*3/uL [facility] Work Phone: [phone] WBC (Leukocytes) 10.5 10*3/uL Invalid Interpretation Code [facility] Work Phone: [phone] Vital Signs Date Time Vital Sign Value Performing Clinician Facility 02-10-2025 10:47-0400 Body mass index (BMI) [Ratio] 26.08 kg/m2 Ivanna Reynairk REPRESENTATIVE PHLEBOTOMY SERVICES - LUMBER TYING MACHINE OPERATOR Work Phone: [facility] 02-10-2025 10:47-0400 Body weight 66.77 kg Ivanna Vadimirk REPRESENTATIVE PHLEBOTOMY SERVICES - LUMBER TYING MACHINE OPERATOR Work Phone: [facility] 02-10-2025 10:47-0400 Diastolic blood pressure 59 mm[Hg] Ivanna Rashawndesiree REPRESENTATIVE PHLEBOTOMY SERVICES - LUMBER TYING MACHINE OPERATOR Work Phone: [facility] 02-10-2025 10:47-0400 Heart rate 77 /min Ivanna Vadimirdesiree REPRESENTATIVE PHLEBOTOMY SERVICES - LUMBER TYING MACHINE OPERATOR Work Phone: [facility] 02-10-2025 10:47-0400 Systolic blood pressure 98 mm[Hg] Ivanna Vadimirdesiree REPRESENTATIVE PHLEBOTOMY SERVICES - LUMBER TYING MACHINE OPERATOR Work Phone: [facility] 11-19-2024 10:20-0500 Body height 162.6 cm Chloe Strong MD Work Phone: [facility] 11-19-2024 10:20-0500 Body mass index (BMI) [Ratio] 23.17 kg/m2 Chloe Strong MD Work Phone: [facility] 11-19-2024 10:20-0500 Body weight 61.24 kg Chloe Strong MD Work Phone: [facility] 11-19-2024 10:20-0500 Diastolic blood pressure 62 mm[Hg] Chloe Strong MD Work Phone: [facility] 11-19-2024 10:20-0500 Heart rate 86 /min Chloe Strong MD Work Phone: [facility] 11-19-2024 10:20-0500 Respiratory rate 18 /min Chloe Strong MD Work Phone: [facility] 11-19-2024 10:20-0500 SaO2% (BldA) [Mass fraction] 93 % Chloe Strong MD Work Phone: [facility] 11-19-2024 10:20-0500 Systolic blood pressure 98 mm[Hg] Chloe Strong MD Work Phone: [facility] 08-12-2024 11:04-0500 Body mass index (BMI) [Ratio] 26.15 kg/m2 Ivanna Quirk REPRESENTATIVE PHLEBOTOMY SERVICES - LUMBER TYING MACHINE OPERATOR Work Phone: [facility] 08-12-2024 11:04-0500 Body weight 66.95 kg Ivanna Quirk REPRESENTATIVE PHLEBOTOMY SERVICES - LUMBER TYING MACHINE OPERATOR Work Phone: [facility] 08-12-2024 11:04-0500 Diastolic blood pressure 62 mm[Hg] Ivanna Reynairk REPRESENTATIVE PHLEBOTOMY SERVICES - LUMBER TYING MACHINE OPERATOR Work Phone: [facility] 08-12-2024 11:04-0500 Heart rate 75 /min Ivanna Quirk REPRESENTATIVE PHLEBOTOMY SERVICES - LUMBER TYING MACHINE OPERATOR Work Phone: [facility] 08-12-2024 11:04-0500 Systolic blood pressure 104 mm[Hg] Ivanna Reynairk REPRESENTATIVE PHLEBOTOMY SERVICES - LUMBER TYING MACHINE OPERATOR Work Phone: [facility] 04-29-2024 11:03-0400 Body mass index (BMI) [Ratio] 27.35 kg/m2 Ivanna Quirk REPRESENTATIVE PHLEBOTOMY SERVICES - LUMBER TYING MACHINE OPERATOR Work Phone: [facility] 04-29-2024 11:03-0400 Body weight 70.03 kg Ivanna Quirk REPRESENTATIVE PHLEBOTOMY SERVICES - LUMBER TYING MACHINE OPERATOR Work Phone: [facility] 04-29-2024 11:03-0400 Diastolic blood pressure 64 mm[Hg] Ivanna Reynairk REPRESENTATIVE PHLEBOTOMY SERVICES - LUMBER TYING MACHINE OPERATOR Work Phone: [facility] 04-29-2024 11:03-0400 Heart rate 86 /min Ivanna Reynairk REPRESENTATIVE PHLEBOTOMY SERVICES - LUMBER TYING MACHINE OPERATOR Work Phone: [facility] 04-29-2024 11:03-0400 Systolic blood pressure 111 mm[Hg] Ivanna Reynairdesiree REPRESENTATIVE PHLEBOTOMY SERVICES - LUMBER TYING MACHINE OPERATOR Work Phone: [facility] 01-29-2024 13:40-0400 Body mass index (BMI) [Ratio] 26.93 kg/m2 vIanna Reynairdesiree REPRESENTATIVE PHLEBOTOMY SERVICES - LUMBER TYING MACHINE OPERATOR Work Phone: [facility] 01-29-2024 13:40-0400 Body weight 68.95 kg Ivanna Reynairdesiree REPRESENTATIVE PHLEBOTOMY SERVICES - LUMBER TYING MACHINE OPERATOR Work Phone: [facility] 01-29-2024 13:40-0400 Diastolic blood pressure 68 mm[Hg] Ivanna Reynairdesiree REPRESENTATIVE PHLEBOTOMY SERVICES - LUMBER TYING MACHINE OPERATOR Work Phone: [facility] 01-29-2024 13:40-0400 Systolic blood pressure 115 mm[Hg] Ivanna Reynairdesiree REPRESENTATIVE PHLEBOTOMY SERVICES - LUMBER TYING MACHINE OPERATOR Work Phone: [facility] 01-07-2024 11:29-0400 Body weight 67.59 kg Liza Ortiz MD Work Phone: [facility] 01-07-2024 11:29-0400 Diastolic blood pressure 65 mm[Hg] Liza Ortiz MD Work Phone: [facility] 01-07-2024 11:29-0400 Heart rate 75 /min Liza Ortiz MD Work Phone: [facility] 01-07-2024 11:29-0400 SaO2% (BldA) [Mass fraction] 98 % Liza Ortiz MD Work Phone: [facility] 01-07-2024 11:29-0400 Systolic blood pressure 113 mm[Hg] Liza Ortiz MD Work Phone: [facility] 08-16-2023 09:40-0500 Body height 165.[address] Rajat Patel Work Phone: [facility] 08-16-2023 09:40-0500 Body mass index (BMI) [Ratio] 24.4 kg/m2 Dr. Rajat Patel Work Phone: [facility] 08-16-2023 09:40-0500 Body weight 66.[address] Rajat Patel Work Phone: [facility] 08-16-2023 09:40-0500 Diastolic blood pressure 61 mm[Hg] Dr. Rajat Patel Work Phone: [facility] 08-16-2023 09:40-0500 Heart rate 123 /min Dr. Rajat Patel Work Phone: [facility] 08-16-2023 09:40-0500 Respiratory rate 18 /min Dr. Rajat Patel Work Phone: [facility] 08-16-2023 09:40-0500 Systolic blood pressure 97 mm[Hg] Dr. aRjat Patel Work Phone: [facility] 07-31-2023 10:57-0400 Body mass index (BMI) [Ratio] 26.43 kg/m2 Ivanna Ren REPRESENTATIVE PHLEBOTOMY SERVICES - LUMBER TYING MACHINE OPERATOR Work Phone: [facility] 07-31-2023 10:57-0400 Body weight 67.68 kg Ivanna Ren REPRESENTATIVE PHLEBOTOMY SERVICES - LUMBER TYING MACHINE OPERATOR Work Phone: [facility] 07-19-2023 13:23-0400 Body height 165.1 cm No Primary Care Physician [facility] 07-19-2023 13:23-0400 Body mass index (BMI) [Ratio] 25.2 kg/m2 No Primary Care Physician [facility] 07-19-2023 13:23-0400 Body weight 68.94 kg No Primary Care Physician [facility] 07-19-2023 13:23-0400 Diastolic blood pressure 64 mm[Hg] No Primary Care Physician [facility] 07-19-2023 13:23-0400 Heart rate 124 /min No Primary Care Physician [facility] 07-19-2023 13:23-0400 Respiratory rate 24 /min No Primary Care Physician [facility] 07-19-2023 13:23-0400 Systolic blood pressure 104 mm[Hg] No Primary Care Physician [facility] 07-09-2023 12:59-0400 Body height 165.1 cm No Primary Care Physician [facility] 07-09-2023 12:59-0400 Body mass index (BMI) [Ratio] 25 kg/m2 No Primary Care Physician [facility] 07-09-2023 12:59-0400 Body weight 68.03 kg No Primary Care Physician [facility] 07-09-2023 12:59-0400 Diastolic blood pressure 70 mm[Hg] No Primary Care Physician [facility] 07-09-2023 12:59-0400 Heart rate 124 /min No Primary Care Physician [facility] 07-09-2023 12:59-0400 Respiratory rate 24 /min No Primary Care Physician [facility] 07-09-2023 12:59-0400 Systolic blood pressure 112 mm[Hg] No Primary Care Physician [facility] 07-06-2023 10:56-0400 Body height 162.6 cm Randi Villa APRN.CNP Work Phone: [facility] 07-06-2023 10:56-0400 Body weight 67.31 kg Randi Villa APRN.LUMBER TYING MACHINE OPERATOR Work Phone: [facility] 07-06-2023 10:56-0400 Diastolic blood pressure 62 mm[Hg] Randi Villa APRN.LUMBER TYING MACHINE OPERATOR Work Phone: [facility] 07-06-2023 10:56-0400 Heart rate 78 /min Randi Villa APRN.LUMBER TYING MACHINE OPERATOR Work Phone: [facility] 07-06-2023 10:56-0400 Respiratory rate 18 /min Randi Villa APRN.LUMBER TYING MACHINE OPERATOR Work Phone: [facility] 07-06-2023 10:56-0400 SaO2% (BldA) [Mass fraction] 99 % Randi Villa APRN.LUMBER TYING MACHINE OPERATOR Work Phone: [facility] 07-06-2023 10:56-0400 Systolic blood pressure 96 mm[Hg] Randi Villa APRN.LUMBER TYING MACHINE OPERATOR Work Phone: [facility] 06-22-2023 12:08-0400 Heart rate 132 /min No Primary Care Physician [facility] 06-22-2023 11:20-0400 Body height 165.1 cm No Primary Care Physician [facility] 06-22-2023 11:20-0400 Body mass index (BMI) [Ratio] 25 kg/m2 No Primary Care Physician [facility] 06-22-2023 11:20-0400 Body weight 68.03 kg No Primary Care Physician [facility] 06-22-2023 11:20-0400 Diastolic blood pressure 71 mm[Hg] No Primary Care Physician [facility] 06-22-2023 11:20-0400 Respiratory rate 18 /min No Primary Care Physician [facility] 06-22-2023 11:20-0400 SaO2% (BldA) [Mass fraction] 96 % No Primary Care Physician [facility] 06-22-2023 11:20-0400 Systolic blood pressure 112 mm[Hg] No Primary Care Physician [facility] 06-20-2023 11:04-0400 Diastolic blood pressure 61 mm[Hg] No Primary Care Physician [facility] 06-20-2023 11:04-0400 Heart rate 107 /min No Primary Care Physician [facility] 06-20-2023 11:04-0400 Respiratory rate 18 /min No Primary Care Physician [facility] 06-20-2023 11:04-0400 SaO2% (BldA) [Mass fraction] 98 % No Primary Care Physician [facility] 06-20-2023 11:04-0400 Systolic blood pressure 94 mm[Hg] No Primary Care Physician [facility] 06-20-2023 09:24-0400 Body mass index (BMI) [Ratio] 25.2 kg/m2 No Primary Care Physician [facility] 06-20-2023 09:24-0400 Body temperature 97.6 [degF] No Primary Care Physician [facility] 06-20-2023 09:24-0400 Body weight 68.62 kg No Primary Care Physician [facility] 06-19-2023 10:34-0400 Body weight 71.21 kg No Primary Care Physician [facility] 06-19-2023 10:25-0400 Body mass index (BMI) [Ratio] 24.5 kg/m2 No Primary Care Physician [facility] 06-19-2023 10:25-0400 Body temperature 98.8 [degF] No Primary Care Physician [facility] 06-19-2023 10:25-0400 Diastolic blood pressure 68 mm[Hg] No Primary Care Physician [facility] 06-19-2023 10:25-0400 Heart rate 78 /min No Primary Care Physician [facility] 06-19-2023 10:25-0400 Respiratory rate 14 /min No Primary Care Physician [facility] 06-19-2023 10:25-0400 SaO2% (BldA) [Mass fraction] 95 % No Primary Care Physician [facility] 06-19-2023 10:25-0400 Systolic blood pressure 113 mm[Hg] No Primary Care Physician [facility] 05-29-2023 07:10-0400 Diastolic blood pressure 94 mm[Hg] No Primary Care Physician [facility] 05-29-2023 07:10-0400 Heart rate 88 /min No Primary Care Physician [facility] 05-29-2023 07:10-0400 Respiratory rate 17 /min No Primary Care Physician [facility] 05-29-2023 07:10-0400 SaO2% (BldA) [Mass fraction] 98 % No Primary Care Physician [facility] 05-29-2023 07:10-0400 Systolic blood pressure 156 mm[Hg] No Primary Care Physician [facility] 05-29-2023 06:10-0400 Body temperature 97.8 [degF] No Primary Care Physician [facility] 05-28-2023 22:13-0400 Body mass index (BMI) [Ratio] 24.4 kg/m2 No Primary Care Physician [facility] 05-28-2023 22:13-0400 Body weight 70.76 kg No Primary Care Physician [facility] 05-28-2023 21:25-0400 Body height 170.18 cm No Primary Care Physician [facility] 05-24-2023 09:23-0400 Body weight 70.3 kg No Primary Care Physician [facility] 05-23-2023 08:51-0400 Body mass index (BMI) [Ratio] 25 kg/m2 No Primary Care Physician [facility] 05-07-2023 14:16-0400 Body weight 70.3 kg No Primary Care Physician [facility] 05-07-2023 14:16-0400 Diastolic blood pressure 67 mm[Hg] No Primary Care Physician [facility] 05-07-2023 14:16-0400 Heart rate 89 /min No Primary Care Physician [facility] 05-07-2023 14:16-0400 Respiratory rate 22 /min No Primary Care Physician [facility] 05-07-2023 14:16-0400 Systolic blood pressure 110 mm[Hg] No Primary Care Physician [facility] 05-07-2023 12:55-0400 Body height 167.64 cm No Primary Care Physician [facility] 04-24-2023 10:56-0400 Diastolic blood pressure 68 mm[Hg] Ivnana Ren REPRESENTATIVE PHLEBOTOMY SERVICES - LUMBER TYING MACHINE OPERATOR Work Phone: [facility] 04-24-2023 10:56-0400 Heart rate 90 /min Ivanna Reynairdesiree REPRESENTATIVE PHLEBOTOMY SERVICES - LUMBER TYING MACHINE OPERATOR Work Phone: [facility] 04-24-2023 10:56-0400 Systolic blood pressure 112 mm[Hg] Ivanna Ren REPRESENTATIVE PHLEBOTOMY SERVICES - LUMBER TYING MACHINE OPERATOR Work Phone: [facility] 04-24-2023 10:55-0400 Body height 160 cm Ivanna Reynairdesiree REPRESENTATIVE PHLEBOTOMY SERVICES - LUMBER TYING MACHINE OPERATOR Work Phone: [facility] 04-24-2023 10:55-0400 Body mass index (BMI) [Ratio] 28.56 kg/m2 Ivanna Reynairdesiree REPRESENTATIVE PHLEBOTOMY SERVICES - LUMBER TYING MACHINE OPERATOR Work Phone: [facility] 04-24-2023 10:55-0400 Body weight 73.12 kg Ivanna Ren REPRESENTATIVE PHLEBOTOMY SERVICES - LUMBER TYING MACHINE OPERATOR Work Phone: [facility] 04-09-2023 10:07-0400 Body height 167.64 cm No Primary Care Physician [facility] 04-09-2023 10:07-0400 Body mass index (BMI) [Ratio] 26.4 kg/m2 No Primary Care Physician [facility] 04-09-2023 10:07-0400 Body weight 74.38 kg No Primary Care Physician [facility] 04-09-2023 10:07-0400 Diastolic blood pressure 68 mm[Hg] No Primary Care Physician [facility] 04-09-2023 10:07-0400 Heart rate 78 /min No Primary Care Physician [facility] 04-09-2023 10:07-0400 Respiratory rate 16 /min No Primary Care Physician [facility] 04-09-2023 10:07-0400 Systolic blood pressure 113 mm[Hg] No Primary Care Physician [facility] 03-25-2023 08:00-0400 Body temperature 98 [degF] No Primary Care Physician [facility] 03-25-2023 08:00-0400 Diastolic blood pressure 69 mm[Hg] No Primary Care Physician [facility] 03-25-2023 08:00-0400 Heart rate 90 /min No Primary Care Physician [facility] 03-25-2023 08:00-0400 Respiratory rate 14 /min No Primary Care Physician [facility] 03-25-2023 08:00-0400 SaO2% (BldA) [Mass fraction] 99 % No Primary Care Physician [facility] 03-25-2023 08:00-0400 Systolic blood pressure 109 mm[Hg] No Primary Care Physician [facility] 03-25-2023 04:29-0400 Body mass index (BMI) [Ratio] 25.9 kg/m2 No Primary Care Physician [facility] 03-25-2023 04:29-0400 Body weight 73 kg No Primary Care Physician [facility] 03-21-2023 07:08-0400 Inhaled oxygen concentration 94 % No Primary Care Physician [facility] 03-21-2023 07:08-0400 Inhaled oxygen flow rate 2 L/min No Primary Care Physician [facility] 03-20-2023 14:23-0400 Body height 167.64 cm No Primary Care Physician [facility] 03-19-2023 21:18-0400 Body height 167.64 cm [facility] 03-19-2023 21:18-0400 Body mass index (BMI) [Ratio] 28.3 kg/m2 [facility] 03-19-2023 21:18-0400 Body weight 79.7 kg [facility] 03-19-2023 21:00-0400 Diastolic blood pressure 55 mm[Hg] [facility] 03-19-2023 21:00-0400 Heart rate 79 /min [facility] 03-19-2023 21:00-0400 Inhaled oxygen flow rate 5 L/min [facility] 03-19-2023 21:00-0400 Respiratory rate 25 /min [facility] 03-19-2023 21:00-0400 SaO2% (BldA) [Mass fraction] 100 % [facility] 03-19-2023 21:00-0400 Systolic blood pressure 96 mm[Hg] [facility] 03-19-2023 20:25-0400 Body temperature 97.6 [degF] [facility] 02-20-2017 14:29-0400 Heart rate 77 /min [facility] Work Phone: 02-20-2017 14:14-0400 BMI (Body Mass Index) 29.37 kg/m2 [facility] Work Phone: 02-20-2017 14:14-0400 BP Diastolic 60 mm[Hg] [facility] Work Phone: 02-20-2017 14:14-0400 BP Systolic 104 mm[Hg] [facility] Work Phone: 02-20-2017 14:14-0400 Height 167.64 cm [facility] Work Phone: 02-20-2017 14:14-0400 Pulse (Heart Rate) 68 /min [facility] Work Phone: 02-20-2017 14:14-0400 Weight 82.56 kg [facility] Work Phone: 07-31-2016 13:18-0400 BMI (Body Mass Index) 29.11 kg/m2 [facility]gorzata [facility] [employer] [facility] Work Phone: 07-31-2016 13:18-0400 Body weight 81.83 kg Malgorzata Aaron RN [facility] Work Phone: 07-31-2016 13:18-0400 BP Diastolic 68 mm[Hg] Malgorzata Aaron RN [facility] Work Phone: 07-31-2016 13:18-0400 BP Systolic 112 mm[Hg] Malgorzata Aaron RN [facility] Work Phone: 07-31-2016 13:18-0400 BSA (Body Surface Area) 1.92 m2 Malgorzata Aaron RN [facility] Work Phone: 07-31-2016 13:18-0400 Pulse (Heart Rate) 68 /min Malgorzata Aaron RN [facility] Work Phone: 07-31-2016 13:18-0400 Respiratory Rate 20 /min Malgorzata Aaron RN [facility] Work Phone: 03-08-2016 10:40-0400 Heart rate 96 /min Malgorzata Aaron RN [facility] Work Phone: 10-06-2015 14:31-0500 Height 167.64 cm Malgorzata Aaron RN [facility] Work Phone: 07-19-2010 13:12-0400 Body Temperature 98.6 [degF] Malgorzata Aaron RN [facility] Work Phone: Encounters Encounter Date Encounter Type Care Provider Facility Start: 05-12-2025 End: 05-12-2025 Follow-up encounter Lisa Clemente Work Phone: Hematology/Oncology Start: 05-08-2025 End: 06-08-2025 Telephone encounter Liza Ortiz MD Work Phone: Cardiology Comment on above: Patient Update Start: 05-08-2025 End: 05-08-2025 ambulatory RAJAT PATEL Facility:[facility] Start: 05-08-2025 End: 05-08-2025 ambulatory RAJATLEDA PATEL Facility:[facility] Start: 04-29-2025 End: 05-01-2025 Telephone encounter Lisa Clemente Work Phone: Hematology/Oncology Comment on above: New Patient Start: 04-26-2025 End: 04-26-2025 Emergency department patient visit SELENA EUBANKS Facility:[facility] Start: 04-25-2025 End: 04-28-2025 Refill Ivanna Ren REPRESENTATIVE PHLEBOTOMY SERVICES - LUMBER TYING MACHINE OPERATOR Work Phone: [facility] [employer] Comment on above: 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) Start: 04-24-2025 End: 04-24-2025 Refill Liza Ortiz MD Work Phone: Cardiology Comment on above: Refill Request Start: 04-23-2025 End: 04-23-2025 Evaluation and management of inpatient RAJAT PATEL Facility:[facility] Start: 04-21-2025 End: 04-21-2025 Evaluation and management of inpatient UNKNOWN PROVIDER [facility] [facility] Start: 04-18-2025 End: 04-23-2025 Evaluation and management of inpatient RANDI MARIODUSTIN-DESTINY Facility:[facility] Start: 04-18-2025 End: 04-18-2025 Emergency department patient visit RAJAT PATEL Facility:[facility] Start: 04-09-2025 End: 04-16-2025 ambulatory [facility] Start: 03-26-2025 End: 03-26-2025 Refill Liza Ortiz MD Work Phone: Pulmonary Medicine Comment on above: Refill Request Start: 02-10-2025 End: 02-10-2025 Office outpatient visit 40 minutes Ivanna Ren REPRESENTATIVE PHLEBOTOMY SERVICES - LUMBER TYING MACHINE OPERATOR Work Phone: [facility] Comment on above: 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 Rajat Patel MD Work Phone: [facility] Work Phone: Start: 01-01-2025 End: 01-01-[address] 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 Start: 11-19-2024 End: 11-19-2024 ambulatory RAJAT PATEL Facility:[facility] Start: 09-29-2024 End: 09-29-2024 Professional / ancillary services management Chloe Strong MD Work Phone: [facility] Start: 09-29-2024 End: 09-29-2024 ambulatory RAJAT PATEL Facility:[facility] Start: 09-29-2024 End: 09-29-2024 Follow-up encounter hCloe Strong MD Work Phone: [facility] Comment on above: Remote Pacemaker Fol low Up Start: 09-29-2024 End: 09-29-2024 Patient encounter procedure Rem Device Ck [facility] Start: 09-17-2024 End: 09-17-2024 ambulatory Sary Robledo NP Facility:[facility] Start: 09-17-2024 End: 09-17-2024 Discharged Recurring Sary Robledo FIRST LINE SUPERVISOR-C -Physical Therapy Work Phone: Start: 09-15-2024 End: 09-15-2024 ambulatory LIZA ORTIZ Facility:[facility] Start: 08-31-2024 ambulatory MITCHELL VANESSA [facility] Start: 08-31-2024 End: 08-31-2024 Emergency department patient visit MITCHELL VANESSA [facility] Start: 08-22-2024 End: 08-22-2024 Refill Randi Villa APRN.CNP Work Phone: [facility] Cardiology [place] Comment on above: Refill Request Start: 08-12-2024 End: 08-12-2024 Office outpatient visit 40 minutes Ivanna Ren REPRESENTATIVE PHLEBOTOMY SERVICES - LUMBER TYING MACHINE OPERATOR [facility] Phone: [facility] Comment on above: 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) (Primary Dx); Anger Start: 08-12-2024 End: 08-13-2024 ambulatory Rajat Patel Facility:[facility] Start: 08-03-2024 End: 08-05-2024 Refill Ivanna Ren REPRESENTATIVE PHLEBOTOMY SERVICES - LUMBER TYING MACHINE OPERATOR Work Phone: [facility] Comment on above: Anger; 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) Start: 07-30-2024 End: 07-30-2024 ambulatory Sary Robledo NP Facility:[facility] Start: 07-03-2024 End: 07-08-2024 Telephone encounter Liza Ortiz MD Work Phone: Cardiology Comment on above: Patient Update; Resu lts Start: 06-25-2024 End: 07-14-2024 ambulatory [facility] Start: 06-25-2024 End: 07-14-2024 Patient encounter procedure [facility] Start: 06-23-2024 ambulatory Rajat Patel Facility:[facility] Start: 06-23-2024 End: 06-23-2024 ambulatory Sharon Philomena Facility:[facility] Start: 06-16-2024 End: 06-16-2024 Professional / ancillary services management Chloe Strong MD Work Phone: [facility] Start: 06-16-2024 End: 06-16-2024 ambulatory RAJAT Juan M PATEL Facility:[facility] Start: 06-16-2024 End: 06-16-2024 Follow-up encounter Chloe Strong MD Work Phone: [facility] Comment on above: Remote Pacemaker Fol low Up Start: 06-16-2024 End: 06-16-2024 Patient encounter procedure Rem Device Ck [facility] Start: 05-05-2024 End: 05-06-2024 ambulatory EYIMY VALLE [facility] Start: 04-29-2024 End: 04-29-2024 Office outpatient visit 15 minutes Ivanna Ren APRN - LUMBER TYING MACHINE OPERATOR Work Phone: [facility] Geriatrics Comment on above: 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) (Primary Dx); Anger Start: 04-29-2024 End: 04-29-2024 Office outpatient visit 25 minutes Ivanna Ren APRN - LUMBER TYING MACHINE OPERATOR Work Phone: [facility] Geriatrics Comment on above: 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) (Primary Dx); Anger Start: 04-29-2024 End: 04-29-2024 ambulatory IVANNA REN [facility] Start: 04-26-2024 End: 04-26-2024 ambulatory Sharon Philomena Facility:[facility] Start: 04-16-2024 End: 04-16-20[facility] Start: 03-24-2024 End: 03-24-2024 Emergency department patient visit Rajat Campos Facility:[facility] Start: 03-04-2024 End: 03-04-2024 ambulatory [facility] Facility:[facility] Start: 01-29-2024 End: 01-29-2024 Office outpatient visit 40 minutes Ivanna Ren APRN - LUMBER TYING MACHINE OPERATOR Work Phone: [facility] Geriatrics Comment on above: Moderate late onset Alzheimer's dementia without behavioral disturbance, psychotic disturbance, mood disturbance, or anxiety (HCC) (Primary Dx) Start: 01-23-2024 Telephone encounter Ivanna garza APRN - LUMBER TYING MACHINE OPERATOR Work Phone: 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 Comment on above: Permanent Pacemaker Start: 12-10-2023 End: 12-10-2023 ambulatory Device 1 [facility] Comment on above: Permanent Pacemaker Start: 12-10-2023 Follow-up encounter Chloe Strong MD Work Phone: [facility] Start: 12-10-2023 End: 12-10-2023 Patient encounter procedure Device Clinic 1 [facility] Start: 11-20-2023 Follow-up encounter Chloe Strong MD Work Phone: [facility] Start: 11-20-2023 Patient encounter procedure Chloe Strong MD Work Phone: [facility] Start: 11-20-2023 Telephone encounter Do fishman APRN.LUMBER TYING MACHINE OPERATOR Work Phone: [facility] Comment on above: Appointment Start: 11-06-2023 Telephone encounter Randi Villa APRN.LUMBER TYING MACHINE OPERATOR Work Phone: [facility] Cardiology [place] Comment on above: Results Start: 09-07-[address] Rajat Patel Work Phone: [facility]-Laboratory Work Phone: Start: 09-05-2023 End: 09-05-[address] Rajat Patel Work Phone: [facility] Work Phone: Start: 09-05-2023 End: 09-05-[address] Rajat Patel Work Phone: [facility]-Laboratory Work Phone: Start: 08-27-2023 Telephone encounter Randi Villa APRN.LUMBER TYING MACHINE OPERATOR Work Phone: [facility] [place] Start: 08-20-2023 End: 08-20-[address] Rajat Patel Work Phone: [facility] Work Phone: Start: 08-20-2023 End: 08-20-[address] [facility]: Start: 08-17-[facility]23 [facility] Start: 08-16-2023 End: 08-16-[address] Rajat Patel Work Phone: [facility] Work Phone: Start: 08-06-2023 Telephone encounter Randi Villa APRN.LUMBER TYING MACHINE OPERATOR Work Phone: Cardiology Comment on above: Orders Start: 08-06-2023 End: 08-06-[address] Rajat Patel Work Phone: [facility] Work Phone: Start: 08-06-2023 End: 08-06-2023 Patient encounter procedure Ekg Card Admin [facility] Work Phone: Cardiology Comment on above: PAF (paroxysmal atri al fibrillation) (HCC) (Primary Dx) Start: 08-01-2023 End: 08-30-[address] Rajat Patel Work Phone: [facility] Work Phone: Start: 08-01-2023 End: 08-30-[address] Rajat Patel Work Phone: [facility]-Cardiac Rehab Work Phone: Start: 08-01-[address] Rajat Patel Work Phone: [facility]Cardiac Rehab Work Phone: Start: 07-31-2023 End: 07-31-2023 Office outpatient visit 25 minutes Ivanna Ren APRN - LUMBER TYING MACHINE OPERATOR Work Phone: [facility] Geriatrics Comment on above: Moderate late onset Alzheimer's dementia without behavioral disturbance, psychotic disturbance, mood disturbance, or anxiety (HCC) (Primary Dx) Start: 07-19-2023 End: 07-19-2023 Patient encounter procedure No Primary Care Physician [facility] Work Phone: Start: 07-11-2023 End: 07-11-2023 ambulatory No Primary Care Physician [facility] Work Phone: Start: 07-11-2023 End: 07-11-2023 Patient encounter procedure No Primary Care Physician [facility]-Laboratory Work Phone: Start: 07-09-2023 End: 07-09-2023 Patient encounter procedure No Primary Care Physician [facility] Work Phone: Start: 07-06-2023 Telephone encounter Randi Villa APRN.LUMBER TYING MACHINE OPERATOR Work Phone: Cardiology Comment on above: Orders; Appointment Start: 07-06-2023 End: 07-06-2023 Patient encounter procedure Randi Villa APRN.LUMBER TYING MACHINE OPERATOR Work Phone: [facility] Cardiology [place] Comment on above: Coronary artery dise ase 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 (Primary Dx); Primary hypertension; Mixed hyperlipidemia; Rheumatic mitral valve disease; Chronic atrial fibrillation (HCC); Type 2 diabetes mellitus without complication, with long-term current use of insulin (HCC) Start: 07-02-2023 End: 07-31-2023 ambulatory No Primary Care Physician [facility] Work Phone: Start: 07-02-2023 End: 07-31-2023 Discharged Recurring No Primary Care Physician [facility]-Cardiac Rehab Work Phone: Start: 07-02-2023 Registered Recurring No Primar y Care Physician [facility] Work Phone: Start: 06-22-2023 End: 06-22-2023 Patient encounter procedure No Primary Care Physician [facility] Work Phone: Start: 06-20-2023 End: 06-20-2023 Emergency department patient visit No Primary Care Physician [facility]-Emergency Department Work Phone: Start: 06-19-2023 End: 06-19-2023 ambulatory No Primary Care Physician [facility] Work Phone: Start: 06-19-2023 End: 06-19-2023 Patient encounter procedure No Primary Care Physician [facility]-Cardiac Rehab Work Phone: Start: 06-05-2023 Telephone encounter Liza Ortiz MD Work Phone: Cardiology Comment on above: Erroneous encounter- disregard Appointment Start: 05-31-2023 Telephone encounter Ivanna garza REPRESENTATIVE PHLEBOTOMY SERVICES - LUMBER TYING MACHINE OPERATOR Work Phone: [facility] Geriatrics Comment on above: Appointment (Patient needs to cancel appt with Ivanna ) Start: 05-28-2023 End: 05-29-2023 Emergency department patient visit No Primary Care Physician [facility]-Emergency Department Work Phone: Start: 05-25-2023 End: 05-25-2023 ambulatory No Primary Care Physician [facility] Work Phone: Start: 05-25-2023 End: 05-25-2023 Patient encounter procedure No Primary Care Physician [facility]-Laboratory Work Phone: Start: 05-24-2023 End: 05-24-2023 Admission to same day surgery center No Primary Care Physician [facility]-Nutrient Management Specialist/Special Procedures Work Phone: Start: 05-21-2023 Telephone encounter Rajat hamilton Work Phone: [facility] Clinical Communication Start: 05-08-2023 End: 05-08-2023 ambulatory No Primary Care Physician [facility] Work Phone: Start: 05-08-2023 End: 05-08-2023 Patient encounter procedure No Primary Care Physician [facility]-Theresa Campos Start: 05-07-2023 End: 05-07-2023 Patient encounter procedure No Primary Care Physician [facility] Work Phone: Start: 05-04-2023 Orders Only Ivanna LARIOS RN - LUMBER TYING MACHINE OPERATOR Work Phone: [facility] Geriatrics Comment on above: Memory loss (Primary Dx) Start: 04-24-2023 End: 04-24-2023 Office outpatient new 60 minutes Ivanna Ren REPRESENTATIVE PHLEBOTOMY SERVICES - LUMBER TYING MACHINE OPERATOR Work Phone: [facility] Geriatrics Comment on above: Memory loss (Primary Dx); Insomnia, unspecified type Start: 04-13-2023 Non-patient / Non-visit No Kristy bucio [facility] Physician [facility] Start: 04-12-2023 End: 04-12-2023 ambulatory No Primary Care Physician [facility] Work Phone: Start: 04-12-2023 End: 04-12-2023 Patient encounter procedure No Primary Care Physician [facility]-Cardiovascul ar Services Work Phone: Start: 04-12-2023 Non-patient / Non-visit No Kristy bucio [facility] Physician [facility] Start: 04-09-2023 ambulatory [facility] Facility:[facility] Start: 04-09-2023 End: 04-09-2023 Patient encounter procedure No Primary Care Physician [facility] Work Phone: Start: 03-26-2023 Telephone encounter Sanam Richardson DO Work Phone: [facility] Clinical Communication Comment on above: Appointment Request Start: 03-25-2023 End: 03-25-2023 ambulatory No Primary Care Physician [facility] Work Phone: Start: 03-25-2023 End: 03-25-2023 Patient encounter procedure No Primary Care Physician [facility]-Cardiovascul ar Services Start: 03-25-2023 Non-patient / Non-visit No Kristy [facility] Physicians Start: 03-24-2023 Non-patient / Non-visit No Kristy bucio Care Physician [facility] Inpatient Physicians Start: 03-24-2023 Non-patient / Non-visit No Kristy bucio Care Physician [facility] Start: 03-23-2023 Non-patient / Non-visit No Kristy bucio Care Physician [facility] Inpatient Physicians Start: 03-23-2023 Non-patient / Non-visit No Kristy bucio Care Physician [facility] Start: 03-22-2023 Non-patient / Non-visit No Kristy bucio Care Physician [facility] Inpatient Physicians Start: 03-22-2023 Non-patient / Non-visit No Kristy bucio Care Physician [facility] Start: 03-21-2023 Non-patient / Non-visit No Kristy Pradhan Physician [facility] Inpatient Physicians Start: 03-21-2023 Non-patient / Non-visit No Kristy bucio Care Physician [facility] Start: 03-20-2023 Non-patient / Non-visit No Kristy bucio Care Physician [facility] Start: 03-20-2023 Non-patient / Non-visit No Kristy bucio Care Physician [facility] Inpatient Physicians Start: 03-19-2023 Non-patient / Non-visit No Kristy Pradhan Physician [facility] Inpatient Physicians Start: 03-19-2023 End: 03-25-2023 Evaluation and management of inpatient [facility]-Intensive Care Unit Procedures Date Procedure Procedure Detail Performing Clinician Start: 02-10-2025 Adult depression scr eening assessment Ivanna Ren REPRESENTATIVE PHLEBOTOMY SERVICES - LUMBER TYING MACHINE OPERATOR Work Phone: Start: 11-19-2024 Ecg routine ecg w/le ast 12 lds w/i&r Chloe Strong MD Work Phone: Start: 11-19-2024 PACEMAKER CLINIC CHECK Chloe Strong MD Work Phone: Start: 09-29-2024 PACEMAKER REMOTE CHECK Chloe Strong MD Work Phone: Start: 08-12-2024 Adult depression scr eening assessment Ivanna Ren REPRESENTATIVE PHLEBOTOMY SERVICES - LUMBER TYING MACHINE OPERATOR Work Phone: Start: 06-16-2024 PACEMAKER REMOTE CHECK Chloe Strong MD Work Phone: Start: 01-29-2024 Adult depression scr eening assessment Ivanna Ren APRN [facility] Work Phone: Start: 12-31-2023 PACEMAKER CLINIC CHECK Chloe Strong MD Work Phone: Start: 12-10-2023 PACEMAKER CLINIC CHECK Chloe Strong MD Work Phone: Start: 11-20-2023 PACEMAKER CLINIC CHECK Chloe Strong MD Work Phone: Start: 06-20-2023 Plain chest X-ray No Pr imary Care Physician Start: 05-28-2023 Plain chest X-ray No Pr imary Care Physician Start: 04-24-2023 Adult depression scr eening assessment Ivanna Ren REPRESENTATIVE PHLEBOTOMY SERVICES [facility] Work Phone: Start: 04-12-2023 Cardiovascular stres s test using pharmacologic stress agent No Primary Care Physician Start: 03-21-2023 Urine culture No Primar y Care Physician Start: 03-21-2023 MRI of brain with contrast No Primary Care Physician Start: 03-19-2023 Plain chest X-ray Start: 03-27-2017 Colonoscopy Liza young MD Work Phone: Start: 02-20-2017 End: 03-20-2017 Echocardiography Mike Joiner MD Start: 02-20-2017 End: 03-21-2017 Electrocardiogram, complete Mike Joiner MD Start: 02-20-2017 End: 08-29-2017 Follow Up Appt 6 months Terri Bennett Start: 02-20-2017 End: 08-29-2017 MAGDALENO Joiner MD Start: 02-20-2017 End: 03-21-2017 Nuclear stress test -exercise Mike Joiner MD Start: 07-31-2016 End: 07-31-2016 Documentation of current medications Malgorzata Aaron RN Start: 07-31-2016 End: 07-31-2016 SOLAR CONSULTANT Jazmin Zhou PA-C Work Phone: Start: 07-31-2016 End: 07-31-2016 Follow Up Appt 6 months Jazmin kwok PA-C Work Phone: Start: 05-02-2016 End: 05-02-2016 Follow Up Appt 3 months Terri Bennett Start: 05-02-2016 End: 05-02-2016 MAGDALENO Joiner MD Start: 03-13-2016 End: 03-14-2016 Referral to circuit breaker mechanic Mike Joiner MD Start: 03-08-2016 End: 03-08-2016 Dietary management education, guidance, and counseling Malgorzata Aaron RN Start: 03-08-2016 End: 03-08-2016 Electrocardiogram, complete Jazmin Zhou PA-C Work Phone: Start: 03-08-2016 End: 03-08-2016 Follow Up Appt Other Jazmin bond PA-C Work Phone: Start: 11-09-2015 End: 11-09-2015 Electrocardiogram, complete Mike Joiner MD Start: 11-09-2015 End: 11-09-2015 Follow Up Appt 4 months Terri Bennett Start: 11-09-2015 End: 11-09-2015 MAGDALENO Joiner MD Start: 10-19-2015 End: 11-02-2015 Cardioversion Mike Joiner MD Start: 10-19-2015 End: 11-02-2015 Electrocardiogram, complete Mike Joiner MD Start: 10-06-2015 End: 10-26-2015 *BMP Mike Joiner MD Start: 10-06-2015 End: 10-13-2015 Cardioversion Mike Joiner MD Start: 10-06-2015 End: 02-16-2016 Electrocardiogram, complete Mike Joiner MD Start: 10-06-2015 End: 02-16-2016 Follow Up Appt 6 weeks Mike Joiner MD Start: 10-06-2015 End: 02-16-2016 MMM Mike Joiner MD Start: 10-06-2015 End: 11-02-2015 Transesophageal echocardiogram (GISELE) Mike Joiner MD Start: 11-30-2014 Mammography Liza young MD Work Phone: History of placement of stent for coronary artery disease History of coronary artery stent placement No Primary Care Physician Comment on above: S/P stenting to prox imal LAD 2.75 x 22 mm Vesper RYAN and distal RCA 2.75 x 22 mm Vesper YRAN on 06/01/2023 at [facility]; Urine culture No Primary Car e Physician Plan of Treatment Date Care Activity Detail Author Start: 08-31-2034 DTaP/Tdap/Td Vaccine s (4 - Td or Tdap) DTaP/Tdap/Td Vaccines (4 - Td or Tdap) [facility] Start: 08-31-2034 Urine microalbumin profile DTaP,Tdap,Td Vaccine (4 - Td or Tdap) [facility] Start: 03-04-2029 DTaP/Tdap/Td Vaccine s (3 - Td or Tdap) DTaP/Tdap/Td Vaccines (3 - Td or Tdap) [facility] Start: 03-04-2029 Urine microalbumin profile DTaP,Tdap,Td Vaccine (3 - Td or Tdap) [facility] Start: 05-08-2026 [facility] blood [facility] Start: 05-08-2026 Creatinine measurement Serum Creatin ine [facility] Start: 05-08-2026 Hepatitis B surface antibody level LDL Cholesterol [facility] Start: 04-23-2026 Complete blood count Hemoglobin/Vu [facility] Start: 04-23-2026 Creatinine measurement Serum Creatin ine [facility] Start: 04-23-2026 Diabetes: Estimated Glomerular Filtration Rate for Kidney [facility] Diabetes: Estimated Glomerular Filtration Rate for Kidney [facility] Start: 02-10-2026 Depression Screening Depression Scre ening [facility] Start: 11-19-2025 BP Controlled (<130/80) BP Controlle d (<130/80) [facility] Start: 11-18-2025 End: 11-18-2025 Patient encounter procedure 11/18/2025 11:40 AM EST Office Visit [facility] Cardiology [place] [address] [place] [address] Chloe Strong MD [address] [place] [phone] 1 year follow up [facility] Cardiology [place] Comment on above: 1 year follow up Start: 10-19-2025 Hemoglobin A1c measurement HbA1C [facility] Start: 09-15-2025 BP Controlled (<130/80) BP Controlle d (<130/80) [facility] Start: 08-12-2025 Depression Screening Depression Scre ing [facility] Start: 08-11-2025 End: 08-11-2025 Patient encounter procedure 08/11/2025 11:00 AM EST Office Visit [facility] [place] [phone] Ivanna Ren, REPRESENTATIVE PHLEBOTOMY SERVICES - LUMBER TYING MACHINE OPERATOR [address] [place] [address] [facility] Start: 06-01-2025 Influenza vaccination Influenza Vacc ine (#1) [facility] Start: 05-08-2025 End: 05-08-2025 ambulatory 05/08/2025 10:30 AM EDT Visit (SP) Office Hematology/Oncology [address] [place], [place] [id number] Lsia Clemente [address] [place], [place] [id number] FIRST LINE SUPERVISOR/DX:Iron Deficiency AnemiaReferring/Dr.Micha josh Santiago*1st available Hematology/Oncology Comment on above: FIRST LINE SUPERVISOR/DX:Iron Deficienc y AnemiaReferring/Dr.Michael Santiago*1st available Start: 02-18-2025 End: 02-18-2025 Patient encounter procedure 02/18/2025 8:00 AM EDT Procedure [facility] [facility] [place], [place] [id number] PM/SV [facility] Comment on above: PM/SV Start: 02-10-2025 End: 02-10-2025 Patient encounter procedure 02/10/2025 11:00 AM EDT Office Visit [facility] [address] [place] [address] Ivanna Ren, MAHAMED - LUMBER TYING MACHINE OPERATOR [address] [address] [facility] [place] Start: 01-28-2025 Depression Screening Depression [facility] Start: 01-27-2025 End: 01-27-2025 Patient encounter procedure 01/27/2025 8:00 AM EDT Procedure [facility] [place], [place] [id number] PM/SV [facility] Comment on above: PM/SV Start: 01-06-2025 BP Controlled (<130/80) BP Controlle d (<130/80) [facility] Start: 11-19-2024 Diabetes: Estimated Glomerular Filtration Rate for Kidney Health Diabetes: Estimated Glomerular Filtration Rate for Kidney Health [facility] Start: 11-19-2024 End: 11-19-2024 Patient encounter procedure [facility] Comment on above: mdtpm/sv/persafib/sv appt to follow at 1040 1 year follow up s/p micra implant Start: 10-01-2024 Advance Directive Discussion Advance Directive Discussion [facility] Start: 09-29-2024 End: 09-29-2024 Patient encounter procedure [facility] Comment on above: PM/SV PM/SV - MANUAL TRANS [place]. Per dtr -please mail letters for ALL appts. cm Start: 09-15-2024 End: 09-15-2024 Patient encounter procedure 09/15/2024 2:20 PM EST Office Visit Cardiology [address] [place] [id number] Liza Ortiz MD [address] [place] [address] 6 mo follow up Cardiology Comment on above: 6 mo follow up Start: 08-12-2024 End: 08-12-[address] [facility] Start: 07-06-2024 BP Controlled (<130/80) BP Controlle d (<130/80) [facility] Start: 06-01-2024 Covid-19 Vaccine ( season) Covid-19 Vaccine ( season) [facility] Start: 06-01-2024 Covid-19 Vaccine ( season) Covid-19 Vaccine ( season) [facility] Start: 06-01-2024 [facility] Start: 05-29-2024 Hepatitis B surface antibody level LDL CHOLESTEROL [facility] Start: 04-29-2024 End: 04-29-2024 Patient encounter procedure 04/29/2024 10:45 AM EDT Office Visit [facility] [address] [place] [address] Ivanna Ren, REPRESENTATIVE PHLEBOTOMY SERVICES - LUMBER TYING MACHINE OPERATOR [address] [place] [address] [facility] Start: 04-24-2024 Depression Screening Depression [facility] Start: 04-07-2024 End: 12-30-2024 CBC panel - Blood by Automated count CBC Lab Routine Coronary artery disease 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 Expected: 04/07/2024, Expires: 12/30/2024 [facility] Work Phone: Comment on above: Expected: 04/07/2024 , Expires: 12/30/2024 Start: 04-07-2024 End: 12-30-2024 Comprehensive metabolic 2000 panel - Serum or Plasma COMP METABOLIC PANEL Lab Routine Coronary artery disease 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 Mixed hyperlipidemia Expected: 04/07/2024, Expires: 12/30/2024 [facility] Work Phone: Comment on above: Expected: 04/07/2024 , Expires: 12/30/2024 Start: 04-07-2024 End: 12-30-2024 Lipid 1996 panel - Serum or Plasma LIPID PANEL BASIC Lab Routine Mixed hyperlipidemia Expected: 04/07/2024, Expires: 12/30/2024 [facility] Work Phone: Comment on above: Expected: 04/07/2024 , Expires: 12/30/2024 Start: 01-29-2024 End: 01-29-2024 Patient encounter procedure 01/29/2024 1:45 PM EDT Office Visit [facility] Geriatric[facility] [address] [place] [address] Ivanna Ren, REPRESENTATIVE PHLEBOTOMY SERVICES - LUMBER TYING MACHINE OPERATOR [address] [address] [facility] Start: 10-01-2023 Advance Directive Discussion Advance Directive Discussion [facility] Start: 10-01-2023 Behavioral Health Screening Behavioral Health Screening [facility] Start: 10-01-2023 Depression Assessment Depression Ass essment [facility] Start: 2023 RSV Immunization for Adults (1 - 1-dose 75+ series) RSV Immunization for Adults (1 - 1-dose 75+ series) [facility] Start: 2023 RSV Vaccine (1 - 1-d ose 75+ series) RSV Vaccine (1 - 1-dose 75+ series) [facility] Start: 06-19-2023 [facility] Start: 06-19-2023 Patient referral to dietitian [facility] Start: 06-01-2023 Covid-19 Vaccine ( season) Covid-19 Vaccine ( season) [facility] Start: 06-01-2023 Influenza vaccination [facility] Start: 05-28-2023 [facility] Start: 05-24-2023 Patient discharge [facility] Start: 05-22-2023 End: 05-22-2023 Patient encounter procedure 05/22/2023 9:45 AM EDT Office Visit [facility] [place] [address] Ivanna Ren, REPRESENTATIVE PHLEBOTOMY SERVICES - LUMBER TYING MACHINE OPERATOR [address] [id number] [facility] Start: 05-04-2023 End: 05-04-2024 Cobalamin (Vitamin B12) [Mass/volume] in Serum or Plasma Vitamin B12 Lab Routine Memory loss Expected: 05/04/2023 (Approximate), Expires: 05/04/2024 [facility] Comment on above: Expected: 05/04/2023 (Approximate), Expires: 05/04/2024 Start: 05-04-2023 End: 05-04-2024 Folate [Mass/volume] in Serum or Plasma Folate Lab Routine Memory loss Expected: 05/04/2023 (Approximate), Expires: 05/04/2024 [facility] Work Phone: Comment on above: Expected: 05/04/2023 (Approximate), Expires: 05/04/2024 Start: 04-24-2023 End: 04-24-2023 Patient encounter procedure 04/24/2023 10:45 AM EDT Office Visit [facility] [place] [address] Ivanna Ren, REPRESENTATIVE PHLEBOTOMY SERVICES - LUMBER TYING MACHINE OPERATOR [address] [id number] [facility] Start: 04-09-2023 Patient referral [facility] Work Phone: Start: 03-25-2023 Patient discharge [facility] Start: 03-24-2023 Telepractice consultation [facility] Start: 03-24-2023 [facility] Start: 03-23-2023 Care planning and pr oblem solving actions [facility] Start: 03-23-2023 Care planning and pr oblem solving actions [facility] Start: 03-21-2023 Care planning and pr oblem solving actions [facility] Start: 03-21-2023 Care planning and pr oblem solving actions [facility] Start: 03-20-2023 Introduction of urin galilea catheter [facility] Start: 03-20-2023 Oxygen therapy [facility] Start: 03-20-2023 Referral to occupati onal therapist [facility] Start: 03-20-2023 Referral to service [facility] Start: 03-20-2023 [facility] Start: 03-20-2023 Blood chemistry [facility] Start: 03-20-2023 Thyroid stimulating hormone measurement [facility] Start: 03-20-2023 [facility] Start: 03-19-2023 Following clinical pathway protocol [facility] Start: 03-19-2023 Application of intermittent pneumatic compression device [facility] Start: 03-19-2023 Assessment of risk o f venous thromboembolism [facility] Start: 03-19-2023 Cardiac monitoring [facility] Start: 03-19-2023 Care regimes management [facility] Start: 03-19-2023 Continuous pulse oximetry [facility] Start: 03-19-2023 Insertion of cathete r into peripheral vein [facility] Start: 03-19-2023 Measuring intake and output [facility] Start: 03-19-2023 Notification of physician [facility] Start: 03-19-2023 Patient referral to dietitian [facility] Start: 03-19-2023 Providing care accor ding to standard [facility] Start: 03-19-2023 Referral to circuit breaker mechanic [facility] Start: 03-19-2023 Vital signs measurements [facility] Start: 03-19-2023 [facility] Start: 03-19-2023 Troponin I measurement [facility] Start: 03-19-2023 Verification routine [facility] Start: 03-19-2023 Admission procedure [facility] Start: 10-01-2022 ADVANCE DIRECTIVE DISCUSSION ADVANCE DIRECTIVE DISCUSSION [facility] Start: 10-01-2022 DEPRESSION ASSESSMENT DEPRESSION ASS ESSMENT [facility] Start: 03-27-2018 Colonoscopy COLONOSCOPY [facility] Start: 03-27-2018 COLORECTAL CANCER SCREENING COLORECTAL CANCER SCREENING [facility] Start: 03-27-2018 Screening for malign ant neoplasm of colon [facility] Start: 09-04-2017 End: 09-04-2017 Appointment Appointment [email or web address] Work Phone: Start: 09-04-2017 End: 09-04-2017 Appointment Appointment [facility] Work Phone: Start: 07-26-2017 Pneumococcal Vaccine : 50+ Years (2 of 2 - PPSV23) Pneumococcal Vaccine: 50+ Years (2 of 2 - PPSV23) [facility] Start: 07-26-2017 Pneumococcal Vaccine : 65+ Years (2 of 2 - PPSV23 or PCV20) Pneumococcal Vaccine: 65+ Years (2 of 2 - PPSV23 or PCV20) [facility] Start: 02-20-2017 End: 02-20-2017 Appointment Appointment [email or web address] Work Phone: Start: 02-20-2017 End: 02-20-2017 Echocardiography Echocardiogram (complete) [email or web address] Work Phone: Start: 02-20-2017 End: 03-21-2017 Electrocardiogram, complete EKG (In office) [email or web address] Work Phone: Start: 02-20-2017 End: 08-29-2017 Follow Up Appt 6 months Follow Up Appt 6 months [email or web address] Work Phone: Start: 02-20-2017 End: 08-29-2017 MMM MMM [email or web address] Work Phone: Start: 02-20-2017 End: 02-20-2017 Nuclear stress test -exercise Nuclear stress test -exercise [facility] Work Phone: Start: 09-20-2016 Pneumococcal Vaccine : 50+ (2 of 2 - PPSV23) Pneumococcal Vaccine: 50+ (2 of 2 - PPSV23) [facility] Start: 09-20-2016 Pneumococcal Vaccine : 50+ (2 of 2 - PPSV23, PCV20, or PCV21) Pneumococcal Vaccine: 50+ (2 of 2 - PPSV23, PCV20, or PCV21) [facility] Start: 09-20-2016 Pneumococcal Vaccine : 65+ (2 - PPSV23 or PCV20) Pneumococcal Vaccine: 65+ (2 - PPSV23 or PCV20) [facility] Start: 09-20-2016 Pneumococcal Vaccine : 65+ (2 of 2 - PPSV23 or PCV20) Pneumococcal Vaccine: 65+ (2 of 2 - PPSV23 or PCV20) [facility] Start: 07-31-2016 End: 07-31-2016 SOLAR CONSULTANT SOLAR CONSULTANT [facility] Work Phone: Start: 07-31-2016 End: 07-31-2016 Follow Up Appt 6 months Follow Up Appt 6 months [facility] Work Phone: Start: 07-20-2016 DTaP/Tdap/Td Vaccine s (2 - Td or Tdap) DTaP/Tdap/Td Vaccines (2 - Td or Tdap) [facility] Start: 07-20-2016 Urine microalbumin profile [facility] Start: 05-02-2016 End: 05-02-2016 Follow Up Appt 3 months Follow Up Appt 3 months [facility] Work Phone: Start: 05-02-2016 End: 05-02-2016 MMM MMM [facility] Phone: Start: 03-13-2016 End: 03-13-2016 Cardiac Referral Cardiac Referral [facility], [address], [place], [address] [facility] Work Phone: Start: 03-08-2016 End: 03-08-2016 Electrocardiogram, complete EKG (In office) [facility] Work Phone: Start: 03-08-2016 End: 03-08-2016 Follow Up Appt Other Follow Up Appt Other [facility] Work Phone: Start: 12-01-2015 Mammography [facility] Start: 11-24-2015 3 comp foot exam completed DIABETIC FOOT EXAM [facility] Start: 11-24-2015 Diabetic foot examination Diabetic F oot Exam [facility] Start: 11-09-2015 End: 11-09-2015 Electrocardiogram, complete EKG (In office) [facility] Work Phone: Start: 11-09-2015 End: 11-09-2015 Follow Up Appt 4 months Follow Up Appt 4 months [facility] Work Phone: Start: 11-09-2015 End: 11-09-2015 MMM MMM [facility] Work Phone: Start: 10-19-2015 End: 10-19-2015 Cardioversion Cardioversion [facility] Work Phone: Start: 10-19-2015 End: 10-19-2015 Electrocardiogram, complete EKG (In office) [facility] Work Phone: Start: 10-17-2015 Hemoglobin A1c measurement HbA1C [facility] Start: 10-17-2015 Hemoglobin A1c/Hemoglobin.total in Blood HBA1C [facility] Start: 10-06-2015 End: 10-26-2015 *BMP *BMP [facility] Work Phone: Start: 10-06-2015 End: 10-07-2015 Cardioversion Cardioversion [facility] Work Phone: Start: 10-06-2015 End: 10-19-2015 Electrocardiogram, complete EKG (In office) [facility] Work Phone: Start: 10-06-2015 End: 02-16-2016 Follow Up Appt 6 weeks Follow Up Appt 6 weeks [facility] Work Phone: Start: 10-06-2015 End: 02-16-2016 MMM MMM [facility] Work Phone: Start: 10-06-2015 End: 10-07-2015 Transesophageal echocardiogram (GISELE) Transesophageal echocardiogram (GISELE) [facility] Work Phone: Start: 03-23-2015 Hepatitis B screening URINE AL BUMIN:CREATININE RATIO [facility] Start: 06-23-2014 SHINGRIX VACCINE (2 of 3) FARRAR GRIX VACCINE (2 of 3) [facility] Start: 06-23-2014 Zoster Vaccines (2 of 3) Zoster Vacc violet (2 of 3) [facility] Start: 2013 Pneumococcal Vaccine : 65+ Years (1 - PCV) Pneumococcal Vaccine: 65+ Years (1 - PCV) [facility] Start: 2013 Pneumococcal Vaccine : 65+ Years (1 of 1 - PCV) Pneumococcal Vaccine: 65+ Years (1 of 1 - PCV) [facility] Start: 08-01-2013 Medicare Annual Well ness Visit Medicare Annual Wellness Visit [facility] Start: 2008 Hepatitis B Vaccine (1 of 3 - Risk 3-dose series) Hepatitis B Vaccine (1 of 3 - Risk 3-dose series) [facility] Start: 2008 Hepatitis B Vaccines (1 of 3 - Risk 3-dose series) Hepatitis B Vaccines (1 of 3 - Risk 3-dose series) [facility] Start: 2008 RSV Immunization age d 60 or older (1 - 1-dose 60+ series) RSV Immunization aged 60 or older (1 - 1-dose 60+ series) [facility] Start: 2008 RSV Vaccine (1 - 1-d ose 60+ series) RSV Vaccine (1 - 1-dose 60+ series) [facility] Start: 1998 Zoster Vaccines (1 of 2) Zoster Vacc violet (1 of 2) [facility] Start: 1993 COLOGUARD (FIT-DNA) COLOGUARD (FIT-D NA) [facility] Start: [address] COLONOGRAPHY [facility] Start: 1993 FECAL OCCULT BLOOD FECAL OCCULT BLOO D [facility] Start: 1993 Screening for malign ant neoplasm of colon [facility] Start: 1993 SIG[facility]OSCOPY [facility] Start: 1988 Screening for malign ant neoplasm of breast Mammogram [facility] Start: 1967 DTaP/Tdap/Td Vaccine s (1 - Tdap) DTaP/Tdap/Td Vaccines (1 - Tdap) [facility] Start: 1966 ANNUAL PCP TEAM JORDAN MAN TOVA DISEASE VISIT ANNUAL PCP TEAM CHRONIC DISEASE VISIT [facility] Start: 1966 Anxiety Screening Anxiety Screening [facility] Start: 1966 BP CONTROLLED (<130/80) BP CONTROLLE D (<130/80) [facility] Start: 1966 Depression Screening Depression Scre ening [facility] Start: 1966 Diabetes: Estimated Glomerular Filtration Rate for Kidney [facility] Diabetes: Estimated Glomerular Filtration Rate for Kidney Health [facility] Start: 1966 Diabetes: Urine Albumin-Creatinine Ratio for Kidney [facility] Diabetes: Urine Albumin-Creatinine Ratio for Kidney Health [facility] Start: 1966 Hepatitis C screening Hepatitis C Sc [facility] Start: 1966 HEPATITIS C SCREENING HEPATITIS C SC [facility] Start: 1960 Depression Screening Depression Scre ening [facility] Start: 1958 Diabetic foot examination Diabetes: Foot Exam [facility] Start: 1958 Glaucoma screening [facility] Start: 1958 Hepatitis C antibody , confirmatory test DILATED RETINAL EXAM [facility] Start: 1958 Preventive dental service Diabetes: Dental Exam [facility] Start: 1954 Pneumococcal Vaccine : 65+ (1 - PCV) Pneumococcal Vaccine: 65+ (1 - PCV) [facility] Start: 1954 PNEUMOCOCCAL: 65+ (1 - PCV) PNEUMOCOCCAL: 65+ (1 - PCV) [facility] Start: 02-25-1949 COVID-19 Vaccine (#1) COVID-19 Vacci ne (#1) [facility] Start: 1948 Creatinine measurement Creatinine Le tonya [facility] Start: 1948 Echocardiography Echocardiogram [facility] Start: 1948 Hemoglobin A1c measurement Diabetes: Hemoglobin A1C [facility] Start: 1948 Lipid panel Lipid Panel [facility] Start: 1948 Medicare Annual Well ness (AWV) Medicare Annual Wellness (AWV) [facility] Start: 1948 Potassium measurement Potassium Leve l [facility] Start: 1948 Screening for malign ant neoplasm of colon [facility] Start: 1948 Screening for osteoporosis Bone Density Scan [facility] Start: 1948 Thyroid stimulating hormone measurement TSH Level [facility] Ambulatory [facility] Anion gap measurement [facility] BUN/Creatinine ratio [facility] Calcium [Mass/volume ] in Serum or Plasma [facility] Carbon dioxide, tota l [Moles/volume] in Serum or Plasma [facility] Catheterization of l eft heart [facility] Chloride [Moles/volu me] in Serum or Plasma [facility] Creatinine [Moles/vo lume] in Serum or Plasma [facility] Glucose [Mass/volume ] in Serum or Plasma [facility] Hematocrit [Volume Fraction] of Blood [facility] Hemoglobin [Mass/vol ume] in Blood [facility] Leukocytes [#/volume ] in Blood [facility] Magnesium [Mass/volu me] in Serum or Plasma [facility] Mean corpuscular hemoglobin concentration determination [facility] Mean corpuscular hemoglobin determination [facility] Measurement of renal function [facility] Neutrophil count [facility] Neutrophil percent differential count [facility] OUTSIDE VENDOR CARDI AC OUTPATIENT EXTENDED RHYTHM RECORDING (WITHOUT TELEMETRY) OUTSIDE VENDOR CARDIAC OUTPATIENT EXTENDED RHYTHM RECORDING (WITHOUT TELEMETRY) Holter Routine PAF (paroxysmal atrial fibrillation) (HCC) Ordered: 07/06/2023 [facility] Work Phone: Comment on above: Ordered: 07/06/2023 OUTSIDE VENDOR CARDI AC OUTPATIENT EXTENDED RHYTHM RECORDING (WITHOUT TELEMETRY) OUTSIDE VENDOR CARDIAC OUTPATIENT EXTENDED RHYTHM RECORDING (WITHOUT TELEMETRY) Holter Routine Permanent atrial fibrillation (HCC) Ordered: 08/06/2023 [facility] Work Phone: Comment on above: Ordered: 08/06/2023 Partial thromboplast in time, activated [facility] Patient Education ED AFIB [facility] Work Phone: Patient referral [facility] Work Phone: Platelets [#/volume] in Blood [facility] Potassium [Moles/vol ume] in Serum or Plasma [facility] Prothrombin time [facility] Red blood cell count [facility] Red cell distributio n width determination [facility] Sodium [Moles/volume ] in Serum or Plasma [facility] Urea nitrogen [Mass/volume] in Serum or Plasma [facility] Immunizations Immunization Date Immunization Notes Care Provider Jaren altman 08-04-2024 influenza virus vaccine, unspecified formulation Liza Ortiz MD Work Phone: [facility] 07-25-2018 influenza virus vaccine, unspecified formulation Randi Daisy REPRESENTATIVE PHLEBOTOMY SERVICES.LUMBER TYING MACHINE OPERATOR Work Phone: [facility] 08-10-2015 influenza, injectabl e, quadrivalent, preservative free No Primary Care Physician [facility] 08-10-2015 influenza, seasonal, injectable [facility] 08-10-2015 influenza virus vaccine, unspecified formulation Ivanna Ren REPRESENTATIVE PHLEBOTOMY SERVICES - LUMBER TYING MACHINE OPERATOR Work Phone: [facility] 07-28-2014 influenza, seasonal, injectable Liza Ortiz MD Work Phone: [facility] Work Phone: 07-28-2014 influenza virus vaccine, unspecified formulation Liza Ortiz MD Work Phone: [facility] 04-28-2014 zoster vaccine, live Liza snider MD Work Phone: [facility] 08-10-2008 influenza virus vaccine, unspecified formulation Liza Ortiz MD Work Phone: [facility] 07-20-2006 influenza virus vaccine, unspecified formulation Liza Ortiz MD Work Phone: [facility] 07-20-2006 tetanus toxoid, redu ragini diphtheria toxoid, and acellular pertussis vaccine, adsorbed Liza Ortiz MD Work Phone: [facility] Payers Date Payer Category Payer care--Care provided to Veterans [facility] [id number] 2024 Medicaid [id number] 2024 Medicaid [id number] 2024 Self-pay [id number] 2023 Government (not [facility] or Medicaid) [facility] [id number] 2023 Unknown [id number] 2021 Medicare supplementa l policy (as second payer) [facility] MEDICARE SUPPLEMENT [id number] 2021 Private Health Insurance [employer] MED ICARE SUPPLEMENT Member Subscriber Plan / Payer (Effective 2021-Present) Name: Amalia Corral Relation to Subscriber: Self Name: Amalia Corral Payer ID: Not on file Type: Indemnity Address: [place] [id number] 2021 Unknown [id number] 2018 Unknown [id number] 2013 Medicare [id number] 2013 Medicare [id number] 1948 Unknown [id number] [id number] .594 1948 Unknown [id number] 2.16840.1.009999.3.579.2 .594 1948 Unknown [id number] 2.16840.1.207883.3.579.2 .1287 1948 Unknown [id number] 2.16840.1.938705.3.579.2 .1287 1948 Unknown [id number] 2.16840.1.941481.3.579.2 .128 1948 Unknown [id number] 2.16840.1.147535.3.579.2 .1287 1948 Unknown [id number] 2.16840.1.485832.3.579.2 .651 1948 Unknown [id number] 2.16.840.1.943494.3.579.2 .651 Unknown COMMERCIAL OTHER [id number] Unknown [id number] 2.16.840.1.459668.3.579.2 .462 Unknown [id number] 2.16.840.1.238307.3.579.2 .462 Unknown [id number] 2.16.840.1.039286.3.579.2 .462 Unknown [id number] 2.16.840.1.967682.3.579.2 .462 Unknown [id number] 2.16.840.1.007334.3.579.2 .462 Unknown [id number] 2.16.840.1.854806.3.579.2 .462 Unknown [id number] 2.16.840.1.624284.3.579.2 .462 Unknown [id number] 2.16.840.1.426835.3.579.2 .462 Unknown [id number] 2.16.840.1.712488.3.579.2 .462 Unknown [id number] 2.16.840.1.883879.3.579.2 .462 Social History Date Type Detail Facility Start: 03-19-2023 End: 08-16-2023 Tobacco smoking status NHIS Unknown if ever smoked [facility] Start: 08-10-2015 None [facility] Start: 08-10-2015 Spouse/ Signif icant Other [facility] Start: 08-10-2015 Non-smoker [facility] Start: 1950 Sex Assigned At Female [facility] Start: 1950 Sex Assigned At Not on file [facility] Start: 04-24-2023 End: 07-06-2023 Gender identity Not on file [facility] Start: 04-24-2023 Tobacco smoking status NHIS Never smoked tobacco [facility] Start: 04-24-2023 End: 09-15-2024 Tobacco use and exposure Smokeless tobacco non-user [facility] Start: 04-24-2023 End: 02-10-2025 Alcohol intake Lifetime non-drinker (finding) [facility] Start: 04-24-2023 End: 07-06-2023 History of Social function [facility] Start: 04-14-2023 End: 04-24-2023 Exposure to SARS-CoV-2 (event) Not sure [facility] Start: 03-27-2016 End: 09-15-2024 Tobacco smoking status NHIS Ex-smoker [facility] Start: 10-01-1974 End: 10-01-1989 History of tobacco use Current smoker [facility] Start: 10-01-1974 End: 10-01-1989 History of tobacco use Cigarette Smoker [facility] Start: 05-29-2023 End: 05-08-2025 Alcohol intake Current drinker of alcohol (finding) [facility] Start: 09-01-2012 How hard is it for you to pay for the very basics like food, housing, medical care, and heating Not hard at all [facility] (I/We) worried whether (my/our) food would run out before (I/we) got money to buy more. Never true [facility] In the past 12 months, was there a time when you were not able to pay the mortgage or rent on time? No [facility] Start: 03-26-2023 End: 01-07-2025 Sex Female (finding) [facility] Medical Equipment Procedure Code Equipment Code Equipment Origin al Text Equipment Identifier Dates [id number] Start: 01-05-2023 Goals Date Patient Goal Desired Activity /State Personal health goal Functional Status Date Assessment Result Facility 04-23-2025 Are you deaf, or do you have serious difficulty hearing No 04/23/2025 12:18 PM Tiana Alejandra RN No [facility] 04-23-2025 Are you blind, or do you have serious difficulty seeing, even when wearing glasses No 04/23/2025 12:18 PM Tiana Alejandra, REAL No [facility] 04-23-2025 Do you have serious difficulty walking or climbing stairs Yes 04/23/2025 12:18 PM Tiana Alejandra REAL Yes [facility] 04-23-2025 Do you have difficul ty dressing or bathing No 04/23/2025 12:18 PM Tiana Alejandra, REAL No [facility] 04-23-2025 Because of a physica l, mental, or emotional condition, do you have difficulty doing errands alone such as visiting a physician's office or shopping Yes 04/23/2025 12:18 PM EDTiana Galvin, REAL Yes [facility] 02-10-2025 Patient Health Quest ionnaire 2 item (PHQ-2) [Reported] [facility] 11-20-2023 Are you deaf, or do you have serious difficulty hearing No 11/20/2023 10:25 AM Jenni Darnell RN No [facility] 11-20-2023 Are you blind, or do you have serious difficulty seeing, even when wearing glasses No 11/20/2023 10:25 AM Jenni Darnell RN No [facility] 11-20-2023 Do you have serious difficulty walking or climbing stairs No 11/20/2023 10:25 AM Jenni Darnell RN No [facility] 11-20-2023 Do you have difficul ty dressing or bathing No 11/20/2023 10:25 AM Jenni Darnell RN No [facility] 11-20-2023 Because of a physica l, mental, or emotional condition, do you have difficulty doing errands alone such as visiting a physician's office or shopping No 11/20/2023 10:25 AM Jenni Darnell RN No [facility] 03-25-2023 Functional status Activity Abili ty Standby Assist [facility] Work Phone: 03-25-2023 Functional status Ambulates [facility] Work Phone: Mental Status Date Assessment Result Facility 04-23-2025 Because of a physica l, mental, or emotional condition, do you have serious difficulty concentrating, remembering, or making decisions Yes 04/23/2025 12:18 PM Tiana Alejandra, REAL Yes [facility] 11-20-2023 Because of a physica l, mental, or emotional condition, do you have serious difficulty concentrating, remembering, or making decisions No 11/20/2023 10:25 AM Jenni Darnell, REAL No [facility] 06-20-2023 Cognitive function Voice/Name [facility] Work Phone: 05-28-2023 Cognitive function Level Of Cons ciousness Awake [facility] Work Phone: 03-25-2023 Cognitive function Voice/Name [facility] Work Phone: 03-19-2023 Cognitive function Level Of Cons ciousness Awake;Alert [facility] Work Phone: Clinical Notes 11-06-2007 to 05-14-2025 Telephone Encounter - Pauline Guillen RN - 05/14/2025 8:20 AM EDTTelephone Encounter - Pauline Guillen RN - 05/14/2025 8:20 AM EDTTelephone Encounter - Pauline Guillen RN - 05/14/2025 8:20 AM EDT Note Date & Type Note Facility 05-14-2025 Telephone encounter Note Called and spoke with patients Aric malone. Patient was seen by PCP yesterday they d/c'd the metoprolol. The patient has not taken the metoprolol for a while due to bp being under 100 systolic. Daughter is asking if you would like them to restart it at the lower dose? Pauline Guillen RN [facility] 05-14-2025 Telephone encounter Note She can decrease to 25 (1/2 of the 50 mg) bid. Should not effect the BP unless heart rate is less than 60 bpm Wes Ortiz [facility] 05-14-2025 Miscellaneous Notes Called and spoke with patients Aric malone. Patient was seen by PCP yesterday they d/c'd the metoprolol. The patient has not taken the metoprolol for a while due to bp being under 100 systolic. Daughter is asking if you would like them to restart it at the lower dose? Pauline Guillen RN She can decrease to 25 (1/2 of the 50 mg) bid. Should not effect the BP unless heart rate is less than 60 bpm Wes Ortiz BP 05/07/25 80/50 05/08/25 90/60 Patient was recently in the hospital for UTI, fractured coccyx, and pneumonia. BP has been running low since discharge. Daughter has been monitoring it and holding metoprolol. Patient seen by Lisa Clemente today and BP was 115/68. Daughter instructed to continue to monitor the BP and keep a log. She is to call in the results early next week. Patient currently ordered Metoprolol 50mg BID. Daughter asking about decreasing her dose. Please review and advise. Pauline Guillen RN documented in this encounter [facility] 05-12-2025 Telephone encounter Note Relayed message to daughter [facility] Work Phone: 05-12-2025 Miscellaneous Notes Relayed message to daughter Called to review lab results. No answer, LVM to return call to office. Anemia has resolved at this time. No concerns. OK to discontinue PO iron. Can continue to follow with PCP. No need for follow up with hematology. Lisa Clemente APRN.LUMBER TYING MACHINE OPERATOR documented in this encounter [facility] 05-12-2025 Telephone encounter Note Called to review lab results. No answer, LVM to return call to office. Anemia has resolved at this time. No concerns. OK to discontinue PO iron. Can continue to follow with PCP. No need for follow up with hematology. Lisa Clemente APRN.LUMBER TYING MACHINE OPERATOR [facility] Work Phone: 05-08-2025 Telephone encounter Note BP 05/07/25 80/50 05/08/25 90/60 Patient was recently in the hospital for UTI, fractured coccyx, and pneumonia. BP has been running low since discharge. Daughter has been monitoring it and holding metoprolol. Patient seen by Lisa Clemente today and BP was 115/68. Daughter instructed to continue to monitor the BP and keep a log. She is to call in the results early next week. Patient currently ordered Metoprolol 50mg BID. Daughter asking about decreasing her dose. Please review and advise. Pauline Guillen RN [facility] 05-08-2025 Note HNO ID: [id number] Author: LISA CLEMENTE, ? Service: ? Author Type: Nurse Practitioner Type: Progress Notes Filed: 05/08/2025 16:13 Note Text: Progress Note Amalia Corral 1950 Encounter date: 05/08/2025 HPI: Amalia Corral is a 74 year old female presenting with her daughter Aric as a new referral for anemia from ED physician following recent visit. Ms. Corral has a PMHx of CAD, HTN, chronic afib, St 3 CKD, T2DM, osteopenia, and dementia. Ms. Corral lives with her daughter federal java developer at her house. Following a brief respite care stay her daughter noticed worsening cognitive decline prompting her to go [place] ED. During admission she was found to have PNA, UTI, anemia, and a fractured tailbone following a fall. She had a complete GI work up and was found to have ulcers and was started on Protonix and iron supplementation. jail anticoagulation use. She was taken off aspirin. Hgb on admission was 9.9. B12 normal, ferritin 67.7, Iron 29, TIBC 273, Tsat 10.6. Denies Shortness of Breath, CP. No current s/s of infection. Kidney function has been stable for many years. She has a history of internal and external hemorrhoids with occasional bright red blood per rectum, but denies melena or dark stools. She has been experiencing increased stool incontinence since her hospitalization following scopes. She does have upcoming follow up with GI. She denies any dietary restrictions. No OTCs or supplements.She reports a two-year history of pica, specifically craving and chewing ice, which has led to dental issues. She also reports restless legs and occasional tingling and erratic jerking movements at night. She has a family history of polycystic kidney disease. She denies any personal history of cancer. No known personal or family hx or blood or bleeding disorders. PAST MEDICAL HISTORY Diagnosis Date Acute rheumatic heart disease, unspecified Aortic valve insufficiency Atrial fibrillation (HCC) Diabetes mellitus type 2 in obese 03/2012 Heart disease, rheumatic History of PTCA 06/01/2023 LAD AND RCA Hyperlipemia Hypertension Hypothyroid Mitral valve regurgitation Osteopenia Pulmonary hypertension (HCC) Unspecified vitamin D deficiency 10/15/2008 Vit D level 10/09: 15.7, started weekly Vitamin D. PAST SURGICAL HISTORY Procedure Laterality Date AV YESSICA ABLATION 11/19/2023 With Micra implant; Dr. Strong at [facility] CARDIOVERSION x2 CHOLECYSTECTOMY 10/01/1982 Cholecystectomy MICRA AV LEADLESS PACEMAKER 11/19/2023 With AVN catheter ablation; Dr. Strong at [facility] PERCUTANEOUS CORONARY INTERVENTION 06/01/2023 LAD AND RCA TOTAL ABDOMINAL HYSTERECT W/WO RMVL TUBE OVARY 10/01/1975 Hysterectomy, ALY Current Outpatient Medications Medication Sig Dispense Refill furosemide (LASIX) 20 mg tablet Take 1 tablet by mouth once daily. 90 tablet 3 Psyllium Seed-Sucrose (METAMUCIL, SUGAR,) Take 1 Tablespoonful by mouth once daily. Take as directed. 1254 g 3 ferrous sulfate (IRON) 325 mg (65 mg iron) tablet Take 1 tablet by mouth every other day. [address] (PROTONIX) 40 mg tablet Take 1 tablet by mouth once daily. 90 tablet 3 traZODone (DESYREL) 50 mg tablet Take 50 mg by mouth daily at bedtime. FARXIGA 10 mg tablet Take 1 tablet by mouth once daily. 90 tablet 1 losartan (COZAAR) 25 mg tablet Take 25 mg by mouth once daily. metoprolol tartrate, short acting, (LOPRESSOR) 50 mg tablet Take 50 mg by mouth two times a day. acetylcysteine (NAC) 600 mg capsule Take 600 mg by mouth two times a day. cholecalciferol (VITAMIN D3) 5,000 unit tab Take 5,000 Units by mouth once daily. BASAGLAR KWIKPEN U-100 INSULIN 100 unit/mL (3 mL) INJECT 6 UNITS SUBCUTANEOUSLY TWICE DAILY donepezil (ARICEPT) 10 mg tablet Take 10 mg by mouth daily at bedtime. sertraline (ZOLOFT) 50 mg tablet Take 75 mg by mouth once daily. risperiDONE (RISPERDAL) 1 mg tablet Take 1 mg by mouth as needed. pravastatin (PRAVACHOL) 20 mg tablet Take 20 mg by mouth once daily. metFORMIN (GLUCOPHAGE) 500 mg tablet Take 1,000 mg by mouth twice daily with meals. nitroglycerin sublingual (NITROQUICK) 0.4 mg SL tablet Dissolve 1 tablet under the tongue every 5 minutes as needed for chest pain. 90 tablet 1 cyanocobalamin (VITAMIN B-12) 1,000 mcg tab Take 1,000 mcg by mouth once daily. Levothyroxine 25 mcg cap Take 25 mcg by mouth once daily. apixaban (ELIQUIS) 5 mg tab tab(s) Take 1 tablet by mouth twice daily. 60 tablet 12 No current facility-administered medications for this visit. ALLERGIES Allergen Reactions Marco Inhibitors Cough Losartan Potassium Rash At higher doses (ok at low dose) FAMILY HISTORY Problem Relation Age of Onset Stroke Mother POLYCYSTIC KIDNEY DISEASE,HEART DISEASE ,HYPERTENSION Hypertension Mother Heart Mother ? None Father unknown health None Sister other (polycystic kidney disease) Brother Heart Brother AF (more content not included)... [facility] 05-01-2025 Telephone encounter Note Spoke with daughter and scheduled next available 05/08 Vanessa Mccauley [facility] 05-01-2025 Miscellaneous Notes Spoke with daughter and scheduled next available 05/08 Vanessa Mccauley Ok to schedule with me. New Anemia Lisa Clemente APRN.LUMBER TYING MACHINE OPERATOR Patient's kera Chandra called and stated that Pat was seen at [facility] ER and was referred to see hematology. Please review chart and advise on scheduling, we will call mode Chandra back to schedule at [phone] DX:Iron Deficiency Anemia Referring: Dr.Michael Jeet Kothari documented in this encounter [facility] 05-01-2025 Telephone encounter Note Ok to schedule with me. New Anemia Lisa Clemente APRN.LUMBER TYING MACHINE OPERATOR [facility] Work Phone: 04-29-2025 Telephone encounter Note Patient's kera Chandra called and stated that Pat was seen at [facility] ER and was referred to see hematology. Please review chart and advise on scheduling, we will call mode Chandra back to schedule at [phone] DX:Iron Deficiency Anemia Referring: Dr.Michael Jeet Pastr[facility] Pss [facility] 04-24-2025 Telephone encounter Note Physician: liza ortiz Call from patient daughter requesting refill. Please E-Scribe Requested Prescriptions Pending Prescriptions Disp Refills furosemide (LASIX) 20 mg tablet 90 tablet Sig: Take 1 tablet by mouth once daily. Pharmacy Name: [facility] Phone #: [phone] Viviana Patel LPN [facility] Work Phone: 04-24-2025 Miscellaneous Notes Physician: liza ortiz Call from patient daughter requesting refill. Please E-Scribe Requested Prescriptions Pending Prescriptions Disp Refills furosemide (LASIX) 20 mg tablet 90 tablet Sig: Take 1 tablet by mouth once daily. Pharmacy Name: [facility] Phone #: [phone] Viviana Patel LPN documented in this encounter [facility] 04-23-2025 Note HNO ID: [id number] Author: MANJU RODRIGUEZ LSW Service: Care Management Author Type: Brick Tester Type: Care Mgt Progress Note Filed: 04/23/2025 11:22 Note Text: CARE MANAGEMENT DISCHARGE NOTE SERVICE DATE: April 23, 2025 SERVICE TIME: 11:21 AM Admission Date: 04/18/2025 LOS: 5 days Discharge Arrangement Discharge Arrangement: Home with Relative Services Arranged None Caregiver Assessment Caregiver is ready, willing and able to meet the patient's needs as recommended by the inter-professional team: Yes Name of Caregiver: Daughter Transportation Arrangements Transportation Arrangements: Car Date of Trip: 04/23/25 Destination: Home Handoff Communication: Handoff to: Primary Care Physician Primary Care Physician Name/Phone: Rajat Patel MD/[phone] Discharge order placed. Patient is discharging home with her daughter who will transport her home. Patient's daughter is aware and agreeable to discharge plan, declining HHC. Rounded with RN. No additional CM needs. SIGNATURE: MARY Patton PATIENT NAME: Amalia Corral DATE: April 23, 2025 TIME: 11:20 AM [facility] 04-22-2025 Note HNO ID: [id number] Author: MANJU RODRIGUEZ LSW Service: Care Management Author Type: Brick Tester Type: Care Mgt Progress Note Filed: 04/22/2025 09:45 Note Text: CARE MANAGEMENT PROGRESS NOTE SERVICE DATE: 04/22/2025 SERVICE TIME: 9:45 AM LOS: 4 days Needs Prior to Discharge: To Be Determined, Discharge Transportation, Other: See Comment (medical clearance) IMM Follow Up Copy Given: Yes Copy given to:: Patient Water Sander Water Sander Name/Relationship: Aric Block (ENEIDA) Method: By Phone IMM SIGNATURE: MARY Patton PATIENT NAME: Amalia Corral DATE: April 22, 2025 TIME: 9:45 AM [facility] 04-21-2025 Note HNO ID: [id number] Author: MANJU RODRIGUEZ LSW Service: Care Management Author Type: Brick Tester Type: Care Mgt Progress Note Filed: 04/21/2025 11:28 Note Text: CARE MANAGEMENT DISCHARGE NOTE SERVICE DATE: April 21, 2025 SERVICE TIME: 11:02 AM Admission Date: 04/18/2025 LOS: 3 days Discharge Arrangement Discharge Arrangement: Home with Relative Services Arranged None Caregiver Assessment Caregiver is ready, willing and able to meet the patient's needs as recommended by the inter-professional team: Yes Name of Caregiver: Aric Malone Transportation Arrangements Transportation Arrangements: Car Date of Trip: 04/21/25 Destination: Home Handoff Communication: Handoff to: Primary Care Physician Primary Care Physician Name/Phone: Rajat Patel MD/[phone] Discharge order placed. Patient is discharging home with her daughter who will transport patient home. Patient's daughter Aric is aware and agreeable to discharge plan. Aric is declining HHC at this time and states that they will follow up with PCP if they feel they need HHC services after patient is back home. Rounded with RN. No additional CM needs. Updated 11:27 am: DC cancelled for today as GI plans to do colonoscopy tomorrow. SIGNATURE: MARY Patton PATIENT NAME: Amalia Corral DATE: April 21, 2025 TIME: 11:01 AM [facility] 04-21-2025 Note HNO ID: [id number] Author: MANJU RODRIGUEZ LSW Service: Care Management Author Type: Brick Tester Type: Care Mgt Progress Note Filed: 04/21/2025 11:00 Note Text: CARE MANAGEMENT PROGRESS NOTE SERVICE DATE: 04/21/2025 SERVICE TIME: 10:56 AM LOS: 3 days Needs Prior to Discharge: To Be Determined, Discharge Transportation, Other: See Comment (medical clearance) [place] of Choice Given: Yes Level of Care Discussed: Home Care CMSW called and spoke to the patient's daughter, Aric, to discuss PT recommending Home PT; OT evaluation is pending. Aric is declining HHC at this time stating that they will follow up with the patient's PCP if they feel they need HHC services after discharge. CMSW emailed Aric and list of private duty agency and long-term planning professionals just in case she needs those resources in the future. CMSW rounded with MD who advised that plan is for patient to discharge later this evening. Patient's daughter will transport patient home. CM assigned will continue to follow for discharge needs. SIGNATURE: MARY Patton PATIENT NAME: Amalia Corral DATE: April 21, 2025 TIME: 10:56 AM [facility] 04-20-2025 Note HNO ID: [id number] Author: SAL SANTIAGO MD Service: Hospital Medicine Author Type: Physician Type: Progress Notes Filed: 04/20/2025 10:44 Note Text: HOSPITAL MEDICINE PROGRESS NOTE History: No new symptoms. Exam: BP 126/64 Pulse 79 Temp 37.3 ?C (99.1 ?F) (Oral) Resp 14 Ht 167.6 cm (5' 6") Wt 64.6 kg (142 lb 6.7 oz) SpO2 97% BMI 22.99 kg/m? Physical Exam Cardiovascular: Rate and Rhythm: Normal rate and regular rhythm. Pulmonary: Effort: Pulmonary effort is normal. Breath sounds: Normal breath sounds. Musculoskeletal: General: No swelling. Neurological: Mental Status: She is disoriented. ASSESSMENT: Ms. Corral, your 74 years have been affected by Dm2 afib CKD3 HTN CAD with prior stents (2023 most recent), CHB s/p pacemaker, S-CHF, HPL dementia. You presented to the hospital with multiple issues after returning home from a SNF. Patient was at a SNF recently while daughter was on vacation. 1. Had fall at SNF. 2. Had episodes of N/V at SNF. 3. Had episode of Shortness of Breath while at store with daughter after returning home prompting ED eval. Possible cystitis and aspiration PNA - finish course of abx. CHF stable. -iron def anemia (low sat) - GI doing endoscopy. Continue iron Rx. -fell at SNF. Has evidence of non-displaced coccygeal fracture. PT OT consults. Likely can be PT OT at home. Cardiology dc'ed aspirin. Discharge once endoscopies are complete Lovenox timed to end tonight to allow endoscopy tomorrow. Active Hospital Problems Diagnosis Date Noted Coronary artery disease 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 05/29/2023 Priority: C Coccygeal fracture ([facility]) 04/19/2025 Chronic systolic CHF (congestive heart failure) ([facility]) 04/19/2025 Aspiration pneumonia ([facility]) 04/19/2025 Dementia ([facility]) 04/18/2025 Anemia 04/18/2025 Stage 3a chronic kidney disease ([facility]) 04/18/2025 Complete heart block ([facility]) 11/20/2023 Chronic atrial fibrillation ([facility]) 06/01/2023 Type 2 diabetes mellitus, with long-term current use of insulin ([facility]) 12/21/2014 Leg blood clot prevention: lovenox SIGNATURE: Sal Santiago MD DATE: 04/20/2025 TIME: 10:43 AM [facility] 04-19-2025 Note HNO ID: [id number] Author: SHILOH PINZON LSW Service: Care Management Author Type: Brick Tester Type: Care Mgt Initial Assessment Filed: 04/19/2025 12:30 Note Text: CARE MANAGEMENT: ASSESSMENT AND DISCHARGE PLAN SERVICE DATE: April 19, 2025 SERVICE TIME: 12:27 PM PCP: Rajat Patel MD/reviewed Primary Contact: Extended Emergency Contact Information Primary Emergency Contact: Aric Block Mobile Relation: Daughter Secondary Emergency Contact: Abril Worrell Relation: Sister Admission Status: Inpatient Insurance Provider: MEDICARE A AND B Discharge Planning requested by: Per Department Practice Potential Transition Plans Home, Home OT/PT, Care Home Facility/Intermediate Care Facility, To Be Determined Advance Directives Current Advance Directive: Health Care Power of Marketing Strategy Manager In Chart: Yes Up To Date and Valid: Yes Current Living Arrangements and Support Lives with: Children, Spouse/significant other (Spouse in home--he has VA aid services--and daughter is also his caregiver.) Type of Residence: Private Residence (House) Does the patient have to climb stairs at home?: Yes, stairs outside the home (2 outside) Support: Children How do you manage to accomplish the following: Needs Assistance: Ambulation, Bathe/Shower, Dress, Meals/Meal Prep, Going to the bathroom, Transportation to appointments/community, Medication Management Current Services/Equipment Current Post-Acute Service(s): None Discharge Planning Patient Goal(s): General wellness, Increase strength, Ambulate a little better [place] of Choice Explained: [place] of Choice Given: No Reason Not Given: No placements necessary Are you interested in bedside delivery of your medications? No Discharge Planning Participant(s): Family Patient/Family Comments: Daughter plans for d/c home when medically clear. Caregiver Assessment: Caregiver is ready, willing and able to meet the patient's needs as recommended by the inter-professional team: Yes Name of Caregiver: Daughter Transport at Discharge: Transportation Arrangements: Car Needs Prior to Discharge: Needs Prior to Discharge: To Be Determined, OT/PT Evaluation Post-Acute Discharge Plan: CM reviewed EMR. Diagnosis include: History of DM2, chronic atrial fibrillation on Eliquis, CKD 3A, hypertension, CAD, CHB s/p pacemaker, hyperlipidemia, and dementia. Pt admitted due to CHF, AMS. Consult Cardiovascular. Dx Dementia. Lives with daughter. Uses cane, as needed. Recent respite stay d/c from [facility]-increased confusion and fall at [place]. No hx of SNF. [facility] Daycare 3x per week. No in-home services. Daughter transports. Spouse is also in the home--he has [facility] aid services--and daughter is also his caregiver. [facility], in [place]. Daughter picks up pt on d/c. CM will follow with d/c planning needs. SIGNATURE: MARY Monk, ACM PATIENT NAME: Amalia Corral DATE: April 19, 2025 TIME: 12:27 PM [facility] 04-19-2025 Note HNO ID: [id number] Author: SAL SANTIAGO MD Service: Hospital Medicine Author Type: Physician Type: Progress Notes Filed: 04/19/2025 11:52 Note Text: HOSPITAL MEDICINE PROGRESS NOTE History: No new symptoms. Hx limited by dementia. Denies feeling SOB Exam: BP 111/57 Pulse 73 Temp 36.8 ?C (98.2 ?F) (Oral) Resp 18 Ht 167.6 cm (5' 6") Wt 64.6 kg (142 lb 6.7 oz) SpO2 97% BMI 22.99 kg/m? Physical Exam Cardiovascular: Rate and Rhythm: Normal rate and regular rhythm. Pulmonary: Effort: Pulmonary effort is normal. Breath sounds: Normal breath sounds. Musculoskeletal: General: No swelling. Neurological: Mental Status: She is disoriented. ASSESSMENT: Ms. Corral, your 74 years have been affected by Dm2 afib CKD3 HTN CAD with prior stents (2023 most recent), CHB s/p pacemaker, S-CHF, HPL dementia. You presented to the hospital with multiple issues after returning home from a SNF. Patient was at a SNF recently while daughter was on vacation. 1. Had fall at SNF. 2. Had episodes of N/V at SNF. 3. Had episode of Shortness of Breath while at store with daughter after returning home prompting ED eval. Possible cystitis - Rx abx. -Nausea and vomiting episode reported by daughter while patient was at SNF - ?aspiration PNA. Will tx with abx. -elevated BNP. Doesn't appear to be in clinical CHF. Had been off lasix per daughter. Will resume -iron def anemia (low sat) - will switch to lovenox and consult GI for possible EGD. Hgb 8.5 compared to 9.9 yesterday. No clinical acute bleeding. -fell at SNF. Has evidence of non-displaced coccygeal fracture. PT OT consults. Likely can be PT OT at home. Cardiology reports to stop aspirin due to anemia and just use a/c when able. Likely DC Sunday if EGD done Sunday. Last dose of eliquis was am of 04/19. Active Hospital Problems Diagnosis Date Noted Coronary artery disease 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 05/29/2023 Priority: C Coccygeal fracture (HCC) 04/19/2025 Chronic systolic CHF (congestive heart failure) (HCC) 04/19/2025 Aspiration pneumonia (HCC) 04/19/2025 Dementia ([facility]) 04/18/2025 Anemia 04/18/2025 Stage 3a chronic kidney disease (HCC) 04/18/2025 Complete heart block (HCC) 11/20/2023 Chronic atrial fibrillation (HCC) 06/01/2023 Type 2 diabetes mellitus, with long-term current use of insulin (HCC) 12/21/2014 Leg blood clot prevention: lovenox SIGNATURE: Sal Santiago MD DATE: 04/19/2025 TIME: 11:52 AM [facility] 04-18-2025 Note SARS-COV-2 (AGENT OF COVID-19) RNA: Not detected INFLUENZA A RNA: Not detected INFLUENZA B RNA: Not detected RESPIRATORY SYNCYTIAL VIRUS (RSV) RNA: Not detected [facility] Comment on above: Performed By: #### 2 [id number], [id number] #### [facility] CLIA [id number] [address] [place] [address] OF [facility] 03-26-2025 Telephone encounter Note Patient phones requesting refills as follows: Requested Prescriptions Pending Prescriptions Disp Refills FARXIGA 10 mg tablet 90 tablet 1 Sig: Take 1 tablet by mouth once daily. Please review and advise. Kristina Trevino LPN [facility] 03-26-2025 Miscellaneous Notes Patient phones requesting refills as follows: Requested Prescriptions Pending Prescriptions Disp Refills FARXIGA 10 mg tablet 90 tablet 1 Sig: Take 1 tablet by mouth once daily. Please review and advise. 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 Tolerating current dose of medication. Will continue to follow along with medication and adjust PRN. - For anger,/agitation continue sertraline 75 mg daily. Dtr initially saw improvement in anger when medication increased at last visit. Not helping as much now. Continue sertraline as is. Start low dose trazodone 50 mg nightly to help with agitation and hallucinations. Asked dtr to contact me in 4-6 weeks to let me know how pt is responding to medication. Call for any problems with medication before then. Will continue to monitor and adjust medications as needed for behaviors/mood. 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 Tolerating current dose of medication. Will continue to follow along with medication and adjust PRN. - For anger,/agitation continue sertraline 75 mg daily. Dtr initially saw improvement in anger when medication increased at last visit. Not helping as much now. Continue sertraline as is. Start low dose trazodone 50 mg nightly to help with agitation and hallucinations. Asked dtr to contact me in 4-6 weeks to let me know how pt is responding to medication. Call for any problems with medication before then. Will continue to monitor and adjust medications as needed for behaviors/mood. - Continue non-pharmacologic interventions for memory - Has adequate supervision over 5 Ms- dtr providing - F/u in 6 months for routine visit/memory testing documented in this encounter [facility] 02-10-2025 History of Present illness Narrative Review of Systems Constitutional: Positive for appetite change. Negative for fatigue and unexpected weight change. HENT: Positive for dental problem and trouble swallowing. Negative for hearing loss. Eyes: Negative for visual disturbance. Gastrointestinal: Positive for diarrhea. Negative for constipation. Genitourinary: Negative for difficulty urinating and dysuria. Musculoskeletal: Positive for back pain and gait problem. Neurological: Positive for speech difficulty and weakness. Negative for tremors. Psychiatric/Behavioral: Positive for agitation, confusion, hallucinations and sleep disturbance. Negative for dysphoric mood. The patient is nervous/anxious. Images from the original note were not included. [facility] [address] [facility] [address] Dept: [phone] Dept Loc: [phone] Visit type: [facility] Follow Up Visit Reason for Visit: Memory Loss Visit Date: 02/10/2025 Assessment and Plan 1. 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 Tolerating current dose of medication. Will continue to follow along with medication and adjust PRN. - For anger,/agitation continue sertraline 75 mg daily. Dtr initially saw improvement in anger when medication increased at last visit. Not helping as much now. Continue sertraline as is. Start low dose trazodone 50 mg nightly to help with agitation and hallucinations. Asked dtr to contact me in 4-6 weeks to let me know how pt is responding to medication. Call for any problems with medication before then. Will continue to monitor and adjust medications as needed for behaviors/mood. - Continue non-pharmacologic interventions for memory - Has adequate supervision over 5 Ms- dtr providing - F/u in 6 months for routine visit/memory testing Orders: - traZODone (Desyrel) 50 MG tablet; Take 1 tablet (50 mg) by mouth Nightly. Give 30 minutes before bedtime, Starting Sun02/10/2025, Normal - sertraline (Zoloft) 50 MG tablet; TAKE 1.5 TABLETS BY MOUTH DAILY, Normal - donepezil (Aricept) 10 MG tablet; Take 1 tablet (10 mg) by mouth daily., Starting Sun02/10/2025, Normal Follow up in about 6 months (around 08/13/2025). Subjective HPI: Amalia Corral is a 74 y.o. female who presents to the [facility] for a follow-up visit. The patient is known to me. Established pt, initially seen in 03/2023, diagnosed with early moderate Alzheimer's disease in 07/2023. Last seen in 08/2024- [place] 14 (MIS 2), CDT 5, moderate stage, continued donepezil 10 mg but changed to AM dosing due to vivid dreams, increased sertraline to 75 mg daily due to increased anger towards hsbd. History obtained from caregiver(s): Pt is here with her dtr Rick. Memory- Slow progressive decline in short term memory over the past 6 months since last visit in 08/2024. Has good days and bad days. Seems to remember better when there's an emotional connection. Function- Dtr is having to help her more now. Driving- no longer driving. Personal care- has incontinence even if she's napping during the daytime. Wearing depends all the time now. Safety issues- Had an unwitnessed fall but no injuries. Not using any kitchen appliances. No wandering outside the home. Mood/behaviors- Good most of the time. Behaviors- has had a few incidents of agitation. Has broken some plates or glasses in the sink. Has happened 3-4 times over the past month. Hallucinating in the evening at times. Seeing a man in her room at night. Appetite- Good. Will eat too much at times. No noticeable weight loss. Sleep- Usually sleeps well unless she's having hallucinations. History obtained from patient: Doing well. Not having pain. Mood: Good most of the time. Doesn't feel depressed. Gets anxious sometimes. Appetite: Good most of the time. Sleep: No issues. Reviewed progress notes completed by ANMOL (KARINE) and social work. Allergies[1] Current Medications[2] Medical History[3] Social History Tobacco Use Smoking status: Never Smokeless tobacco: Never Substance Use Topics Alcohol use: Never Surgical History[4] Family History[5] Family Status Relation Name Status Mother (Not Specified) Father (Not Specified) Brother No partnership data on file Objective Vitals: 02/10/25 1047 BP: 98/59 BP Location: Right arm Patient Position: Sitting BP Cuff Size: Adult Pulse: 77 Weight: 147 lb 3.2 oz (66.8 kg) Wt Readings from Last 3 Encounters: 02/10/25 147 lb 3.2 oz (66.8 kg) 08/12/24 147 lb 9.6 oz (67 kg) 04/29/24 154 lb 6.4 oz (70 kg) Physical Exam Constitutional: General: She is not in acute distress. Appearance: She is not ill-appearing. Comments: Elderly female. Pleasant and cooperative. Well kempt, well nourished. HENT: Head: Normocephalic. Comments: Wears glasses. No hearing aids. Right Ear: External ear normal. Left Ear: External ear normal. Cardiovascular: Rate and Rhythm: Normal rate and regular rhythm. Heart sounds: No murmur heard. Pulmonary: Effort: Pulmonary effort is normal. No respiratory distress. Breath sounds: Normal breath sounds. Abdominal: General: Abdomen is flat. Bowel sounds are normal. Palpations: Abdomen is soft. Tenderness: There is no abdominal tenderness. Musculoskeletal: General: No swelling (BLE). Deformity: 1-2+ BLE. Comments: Muscle strength 4/5 BLE Skin: General: Skin is warm and dry. Neurological: Comments: Alert and oriented x 2 (to self and place, doesn't know year but knows month). Speech clear and appropriate. Follows commands. No tremors BUE. Psychiatric: Comments: Flat affect. Appropriate behavior Data Reviewed and Summarized Testing: The following tests were performed at today's visit and scanned in to thechart: MoCA score: 13, MIS score: 1 Clock drawing score: 5 PHQ-9 score: 2 KAITLYNN score: not done I independently reviewed the [place] Cognitive Assessment from 02/10/2025. Test scanned in to the chart. I spent total time of 60 minutes face to face with the patient and/or family discussing the diagnosis and importance of compliance with the treatment plan as well as documenting on the day of the visit. In addition, that total time includes the following (this does not include the time spent in Advanced Care Planning which, if done, was documented elsewhere in the note): -Reviewing previous notes, -Reviewing previous cognitive tests, -Obtaining and/or reviewing separately obtained history, -Ordering prescription medications, tests and procedures, -Communicating results to the patient/family/caregiver, -Counseling/educating the patient/family/caregiver, -Documenting clinical information in the patients electronic record, -Coordination of care for the patient, and -Performing a medically appropriate exam and/or evaluation I, Ivanna Ren, MAHAMED - KANDY, furnish ongoing care related to Amalia Corral single, serious and complex condition(s) Alzheimer's dementia. I assume responsibility for the patient's ongoing medical care of this condition. [1] Allergies Allergen Reactions Marco Inhibitors Cough Losartan Rash [2] Current Outpatient Medications Medication Sig Dispense Refill Acetylcysteine (NAC) 600 MG capsule capsule Take 600 mg by mouth in the morning and 600 mg in the evening. One tablet by mouth twice daily. apixaban (Eliquis) 5 MG tablet Take 5 mg by mouth 2 times daily. Take one tablet by mouth twice daily clopidogrel (Plavix) 75 MG tablet Take 75 mg by mouth daily. cyanocobalamin (Vitamin B-12) 1000 MCG tablet Take 1,000 mcg by mouth daily. Take one tablet by mouth daily dapagliflozin (Farxiga) 10 MG tablet Take 10 mg by mouth daily. One tablet by mouth once daily donepezil (Aricept) 10 MG tablet Take 1 tablet (10 mg) by mouth daily. 90 tablet 1 insulin detemir (Levemir) 100 UNIT/ML injection Inject 8 Units under the skin Nightly. levothyroxine (Synthroid, Levoxyl) 25 MCG tablet Take 25 mcg by mouth every morning (before breakfast). Take one tablet by mouth daily losartan (Cozaar) 25 MG tablet Take 25 mg by mouth daily. One tablet by mouth once daily metFORMIN (Glucophage) 500 MG tablet Take 1,000 mg by mouth in the morning and 1,000 mg in the evening. Take with meals. metoprolol tartrate (Lopressor) 50 MG tablet Take 50 mg by mouth 2 times daily. Take one tablet by mouth twice daily nitroglycerin (Nitrostat) 0.[address] 0.4 mg under the tongue every 5 minutes as needed for chest pain. sertraline (Zoloft) 50 MG tablet TAKE 1.5 TABLETS BY MOUTH DAILY 135 tablet 1 traZODone (Desyrel) 50 MG tablet Take 1 tablet (50 mg) by mouth Nightly. Give 30 minutes before bedtime 30 tablet 2 [employer]Care Short Pen [place] 31G X 8 MM [facility] No current facility-administered medications for this visit. [3] Past Medical History: Diagnosis Date Alzheimer's dementia (HCC) diagnosed 07/2023 Diabetes mellitus (HCC) Disease of thyroid gland Heart disease Hyperlipemia Hypertension Osteoporosis Pacemaker Toxic encephalopathy Urinary tract infection [4] Past Surgical History: Procedure Laterality Date CARDIAC CATHETERIZATION 2023 CARDIAC PACEMAKER PLACEMENT 11/19/2023 CHOLECYSTECTOMY CORONARY ANGIOPLASTY WITH STENT PLACEMENT 06/01/2023 HYSTERECTOMY [5] Family History Problem Relation Name Age of Onset Hypertension Mother Kidney failure Mother Heart disease Mother No Known Problems Father Heart disease Brother Senior Services/Geriatrics Social History Present at visit: patient, daughter- Rick Marital status: Children: 3 children (1 local) Living arrangement: patient and spouse lives with mode Cabrera >>01/29/24 same >>08/12/24 same >>02/10/25 same (goes back and forth between daughter's 2 homes- 1 in [facility]) Household safety problems: none >>01/29/24 burned pop-tart in microwave >>08/12/24 one fall, no injury, >>02/10/25 one fall Concerning Behaviors: Hallucinations during hospital stay/UTI >>01/29/24 none >>02/10/25 some hallucinations Wandering potential: No >>01/29/24 no >>08/12/24 no >>02/10/25 no Pets: No Guns in the home: None Elder abuse: No/Denied Concerns >>01/29/24 no >>02/10/25 no Alcohol/Tobacco/Marijuana/Drug Use History: none service: Spouse was a [place] ([place]) Highest level of education: 11th grade 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 Activities: exercise video 30 min/day, prep food for meals, journaling, cleaning, friends/family visting, talks on phone daily with friends >>01/29/24 cleaning, gets together with friends, goes to [employer] to shop >>08/12/24 Adult Day Program 2 days, will have friends come to visit >>02/10/25 Adult Day Program 2-3 days per week, cleans, does errands with daughter Exercise: exercise 30 min/day Finances: has savings, over $2000, SS income $1900 Healthcare Power of Marketing Strategy Manager: Yes: mode Cabrera Financial Power of Marketing Strategy Manager: Yes: mode Cabrera Living Will: Yes Guardian: No Code Status: Full Code Primary Caregiver: mode Cabrera Current care plan/supervision: >>01/29/24 daughter with them most of the time, has someone stay if going to be gone, can leave a few hours >>08/12/24 daughter with patient most of the time if patient not at Adult Day Program >>02/10/25 same Community resources: None >>01/29/24 video monitoring >>08/12/24 on Passport now, Adult Day Program 2 days per week, video monitoring >>02/10/25 did not qualify for Passport, private pay Adult Day Program, video monitoring, life alert Caregiver stressors: some caregiver stress due to medical needs of both patient and spouse >>01/29/24 daughter denies too much stress >>08/12/24 daughter managing stress better since Passport services started >>02/10/25 Not eligible for Passport at this time, denies too much stress Goals for care: evaluate memory, keep patient at home with daughter As a Caregiver, What Matters Most to You: Increase understanding of community resources >>04/24/23 Patient and had been living in [place] with another one of their children. Has moved here 5 weeks ago. Getting lost driving. Daughter Rick noticed that patient is having memory issues and having confusion. Had a hospitalization due to low heart rate, very confused in the hospital. Rick is having some stress due to caregiving for both patient and patient's spouse- both having much medical issues. >>01/29/24 Patient having some slight decline on memory test today. Daughter continues to be main caregiver for patient and spouse. Daughter denies too much caregiver stress. Daughter is considering taking patient and spouse to Adult Day Program to get them engaged in activities. YAKOV gave some tips on how to approach that- encouraged her to try in order to give her some respite. No resources given today. >>08/12/24 Patient now has Passport services, patient and spouse are going to Adult Day Program 2 days per week, may increase days in the future. YAKOV talked to daughter about all the services that [facility] can provide, aides, Depends, medical equipment, respite stays at facilities. Daughter will talk to [facility] Program Director Substance Abuse about these things. Patient staying stable on memory test today; daughter noticing some slight decline in function. SW encouraged daughter to bring in Healthcare Power of Marketing Strategy Manager and living will so that we can scan into patient's chart. No resources given today. >>02/10/25 Patient more angry, having some hallucinations. Patient having good days and bad days. Patient's memory test and function staying stable. Resources given today: hallucinations, anger Functional Status (I: Independent, A: Assisted, D: Dependent) ADLs I A D Notes Bathing [] [] [x] Needs reminders/cuing, shower set up. >>01/29/24 same >>08/12/24 needs hands on help >>02/10/25 same Dressing [] [] [x] Would wear the same clothes if not cued >>01/29/24 will put clean clothes in laundry, daughter cues her to change clothes >>08/12/24 hands on help with dressing >>02/10/25 same Toileting [] [x] [] No issues >>01/29/24 puts too much toilet paper in toilet, clogging toilet, goes through 3 rolls in 2 days >>08/12/24 wearing Depends all the time now, keeps taking off Depends>>02/10/25 same Transfers [x] [] [] No issues >>01/29/24 with some difficulty >>02/10/25 same Feeding [] [x] [] No issues >>01/29/24 unable to cut meat anymore >>08/12/24 same >>02/10/25 same Ambulation [] [] [] Has a walker, not always using it Assistive devices: Cane, Raised toilet seat, Shower chair, and Walker IADLs I A D Telephone [] [x] [] Has a cell phone that she shares with spouse, can call and answer, sometimes needs some help using the phone, daughter sets up own appointments, needs reminders, was missing appointments >>01/29/24 same >>08/12/24 can call someone who just called her, harder to find contacts on phone, needs assistance >>02/10/25 same Transportation [] [] [x] Driving safety concerns: Not currently driving, was driving until she came here, daughter keeping keys until she knows if she can drive or not >>01/29/24 no driving Shopping [] [] [x] Patient goes with daughter, could follow a list in the store, daughter assists >>01/29/24 daughter keeps patient on task >>08/12/24 daughter shops Meal prep [] [x] [] Does help with meal prep with daughter's cuing, not using oven/stove top, can use microwave- always just presses 1 on the microwave >>01/29/24 no longer using oven or microwave, does help some with meal prep >>08/12/24 same >>02/10/25 same Housework [] [x] [] Cleaning unprompted, may do it more than once >>01/29/24 not always rinsing dishes, they may have soap still on them >>08/12/24 makes bed with assistance, tries to do some cleaning tasks >>02/10/25 same Medications [] [] [x] Daughter administers medications, was having a lot of trouble with them >>01/29/24 same >>08/12/24 same, meds are locked up >>02/10/25 same Finances [] [] [x] Daughter assists with paying bills, not on account >>01/29/24 daughter does sit with patient to do bills , now on account >>08/12/24 daughter manages now >>02/10/25 same documented in this encounter [facility] 02-10-2025 Instructions MAHAMED Oliva CNP - 02/10/2025 11:00 AM EDT Mrs. Corral was seen today for memory/geriatric evaluation. Memory testing today was about the same compared to last 2 tests over the past year. Medications: - Continue donepezil 10 mg daily as is. Refill sent today. - Continue sertraline 75 mg daily as is. Refill sent today. - Start trazodone 50 mg nightly for anger/hallucinations. Take about 30 minutes before bedtime. Side effects include drowsiness and dry mouth. Let me know right away if you're having problems with the medication. 5 M s - supervision/assistance with medications, medical care, meals, money, mobility (driving, falls). Avoiding medications that cause confusion and falls - Tylenol PM, Benadryl. Avoid smoking or drinking alcohol. General recommendations for safe drinkin drink per day for females, 2 drinks per day for males. Recommend physical, mental, and social activity - Ex [employer], [employer] Sneakers. Recommend routines, schedules, and organization. Recommend getting adequate sleep and eating balanced diet. Continue regular visits with primary care provider to maintain chronic health conditions. Follow-up visit in 6 months for repeat memory testing/routine visit. Call me in 4-6 weeks to let me know how you're doing on the new medication. documented in this encounter [facility] 02-10-2025 Note Mrs. Corral was se en today for memory/geriatric evaluation. Memory testing today was about the same compared to last 2 tests over the past year. Medications: - Continue donepezil 10 mg daily as is. Refill sent today. - Continue sertraline 75 mg daily as is. Refill sent today. - Start trazodone 50 mg nightly for anger/hallucinations. Take about 30 minutes before bedtime. Side effects include drowsiness and dry mouth. Let me know right away if you're having problems with the medication. 5 M?s - supervision/assistance with medications, medical care, meals, money, mobility (driving, falls). Avoiding medications that cause confusion and falls - Tylenol PM, Benadryl. Avoid smoking or drinking alcohol. General recommendations for safe drinkin drink per day for females, 2 drinks per day for males. Recommend physical, mental, and social activity - Ex Phase Vision, Silver Sneakers. Recommend routines, schedules, and organization. Recommend getting adequate sleep and eating balanced diet. Continue regular visits with primary care provider to maintain chronic health conditions. Follow-up visit in 6 months for repeat memory testing/routine visit. Call me in 4-6 weeks to let me know how you're doing on the new medication. [facility] 11-19-2024 Note HNO ID: [id number] Author: CHLOE STRONG MD Service: ? Author Type: Physician Type: Progress Notes Filed: 11/19/2024 10:57 Note Text: Heart and Vascular [place] [facility] SECTION OF CARDIAC PACING and ELECTROPHYSIOLOGY OUTPATIENT VISIT DATE November 19, 2024 OUTPATIENT VISIT TYPE ESTABLISHED PRIMARY CARE PHYSICIAN: Rajat Patel (Jung) [address] [place] [address] HISTORY OF PRESENT ILLNESS: 73-year-old female with history of essential hypertension, diabetes, coronary artery disease, status post PCI to LAD and RCA in June 2023, permanent atrial fibrillation, on rate control and anticoagulation strategy. The patient was seen in the hospital in the summer 2022 when she presented with atrial fibrillation with slow ventricular rate while on several negative dromotropic agents. After medication adjustment ventricular rates normalized. Later the patient was noted to have significant episodes of tachycardia. She is maintained on diltiazem, metoprolol, and now digoxin. A recent event monitor showed atrial fibrillation with average ventricular rate of 106 beats minute with fast rates up to 190 beats minute and slows in the 40s. Her daughter, who who has medical background is a critical care nurse, has been struggling with ventricular rates, as she experiences frequent episodes of hypotension, and her rate control medications have to be held. ECG today shows atrial fibrillation with ventricular rate of 71 beats minute and a narrow QRS complex. Echo in 2022 showed preserved LV systolic function. Interval history: Pat presents for follow-up. She received leadless pacemaker and AV node ablation in early 2023. Reports feeling much better, no longer has dizziness or sensation of rapid heartbeat, remains on Eliquis with no obvious bleeding complications. ECG today shows ventricularly paced rhythm at 77 beats minute. Device interrogation from earlier today showed normal function, ongoing ventricular pacing, battery longevity of more than 10 years. PAST MEDICAL HISTORY Diagnosis Date Acute rheumatic heart disease, unspecified Aortic valve insufficiency Atrial fibrillation (HCC) Diabetes mellitus type 2 in obese 03/2012 Heart disease, rheumatic History of PTCA 06/01/2023 LAD AND RCA Hyperlipemia Hypertension Hypothyroid Mitral valve regurgitation Osteopenia Pulmonary hypertension (HCC) Unspecified vitamin D deficiency 10/15/2008 Vit D level 10/09: 15.7, started weekly Vitamin D. MEDICATIONS: aspirin 81 mg cap Take 81 mg by mouth once daily. FARXIGA 10 mg tablet Take 10 mg by mouth once daily. losartan (COZAAR) 25 mg tablet Take 25 mg by mouth once daily. metoprolol tartrate, short acting, (LOPRESSOR) 50 mg tablet Take 50 mg by mouth two times a day. acetylcysteine (NAC) 600 mg capsule Take 600 mg by mouth two times a day. cholecalciferol (VITAMIN D3) 5,000 unit tab Take 5,000 Units by mouth once daily. BASAGLAR KWIKPEN U-100 INSULIN 100 unit/mL (3 mL) INJECT 6 UNITS SUBCUTANEOUSLY TWICE DAILY donepezil (ARICEPT) 10 mg tablet Take 10 mg by mouth daily at bedtime. sertraline (ZOLOFT) 50 mg tablet Take 75 mg by mouth once daily. risperiDONE (RISPERDAL) 1 mg tablet Take 1 mg by mouth as needed. pravastatin (PRAVACHOL) 20 mg tablet Take 20 mg by mouth once daily. metFORMIN (GLUCOPHAGE) 500 mg tablet Take 1,000 mg by mouth twice daily with meals. cyanocobalamin (VITAMIN B-12) 1,000 mcg tab Take 1,000 mcg by mouth once daily. Levothyroxine 25 mcg cap Take 25 mcg by mouth once daily. apixaban (ELIQUIS) 5 mg tab tab(s) Take 1 tablet by mouth twice daily. nitroglycerin sublingual (NITROQUICK) 0.4 mg SL tablet Dissolve 1 tablet under the tongue every 5 minutes as needed for chest pain. furosemide (LASIX) 20 mg tablet Take 20 mg by mouth once daily. (Patient not taking: Reported on 09/15/2024) insulin detemir (LEVEMIR) 100 unit/mL injection Inject 8 Units subcutaneously once daily. In the morning (Patient not taking: Reported on 09/15/2024) Review of Systems Constitutional: Negative for fatigue. Respiratory: Negative for shortness of breath. Cardiovascular: Negative for chest pain and palpitations. Neurological: Negative for syncope. Psychiatric/Behavioral: The patient is not nervous/anxious. PHYSICAL EXAMINATION: BP 98/62 (BP Site: Right Arm, BP Position: Sitting, BP Cuff Size: Large Adult) Pulse 86 Resp 18 Ht 5' 4" (1.626 m) Wt 135 lb (61.2 kg) SpO2 93% BMI 23.17 kg/m? BP w/Orthostatic Vitals Date and Time Orthostatic BP Orthostatic Pulse BP Pulse BP Position BP Site BP Cuff Size 11/19/24 1020 -- -- 98/62 86 Sitting Right Arm Large Adult Peak Flow Date and Time PF Resp 11/19/24 1020 -- 18 Physical Exam Constitutional: Appearance: Normal appearance. HENT: Head: Normocephalic and atraumatic. Eyes: Conjunctiva/sclera: Conjunctivae normal. C (more content not included)... [facility] 11-19-2024 History of Present illness Narrative Images from the original note were not included. Heart and Vascular [place] [facility] SECTION OF CARDIAC PACING and ELECTROPHYSIOLOGY OUTPATIENT VISIT DATE November 19, 2024 OUTPATIENT VISIT TYPE ESTABLISHED PRIMARY CARE PHYSICIAN: Rajat Patel (John) [address] [place] [address] HISTORY OF PRESENT ILLNESS: 73-year-old female with history of essential hypertension, diabetes, coronary artery disease, status post PCI to LAD and RCA in June 2023, permanent atrial fibrillation, on rate control and anticoagulation strategy. The patient was seen in the hospital in the summer 2022 when she presented with atrial fibrillation with slow ventricular rate while on several negative dromotropic agents. After medication adjustment ventricular rates normalized. Later the patient was noted to have significant episodes of tachycardia. She is maintained on diltiazem, metoprolol, and now digoxin. A recent event monitor showed atrial fibrillation with average ventricular rate of 106 beats minute with fast rates up to 190 beats minute and slows in the 40s. Her daughter, who who has medical background is a critical care nurse, has been struggling with ventricular rates, as she experiences frequent episodes of hypotension, and her rate control medications have to be held. ECG today shows atrial fibrillation with ventricular rate of 71 beats minute and a narrow QRS complex. Echo in 2022 showed preserved LV systolic function. Interval history: Pat presents for follow-up. She received leadless pacemaker and AV node ablation in early 2023. Reports feeling much better, no longer has dizziness or sensation of rapid heartbeat, remains on Eliquis with no obvious bleeding complications. ECG today shows ventricularly paced rhythm at 77 beats minute. Device interrogation from earlier today showed normal function, ongoing ventricular pacing, battery longevity of more than 10 years. PAST MEDICAL HISTORY Diagnosis Date Acute rheumatic heart disease, unspecified Aortic valve insufficiency Atrial fibrillation (HCC) Diabetes mellitus type 2 in obese 03/2012 Heart disease, rheumatic History of PTCA 06/01/2023 LAD & RCA Hyperlipemia Hypertension Hypothyroid Mitral valve regurgitation Osteopenia Pulmonary hypertension (HCC) Unspecified vitamin D deficiency 10/15/2008 Vit D level 10/09: 15.7, started weekly Vitamin D. MEDICATIONS: aspirin 81 mg cap Take 81 mg by mouth once daily. FARXIGA 10 mg tablet Take 10 mg by mouth once daily. losartan (COZAAR) 25 mg tablet Take 25 mg by mouth once daily. metoprolol tartrate, short acting, (LOPRESSOR) 50 mg tablet Take 50 mg by mouth two times a day. acetylcysteine (NAC) 600 mg capsule Take 600 mg by mouth two times a day. cholecalciferol (VITAMIN D3) 5,000 unit tab Take 5,000 Units by mouth once daily. BASAGLAR KWLINDSAYPEN U-100 INSULIN 100 unit/mL (3 mL) INJECT 6 UNITS SUBCUTANEOUSLY TWICE DAILY donepezil (ARICEPT) 10 mg tablet Take 10 mg by mouth daily at bedtime. sertraline (ZOLOFT) 50 mg tablet Take 75 mg by mouth once daily. risperiDONE (RISPERDAL) 1 mg tablet Take 1 mg by mouth as needed. pravastatin (PRAVACHOL) 20 mg tablet Take 20 mg by mouth once daily. metFORMIN (GLUCOPHAGE) 500 mg tablet Take 1,000 mg by mouth twice daily with meals. cyanocobalamin (VITAMIN B-12) 1,000 mcg tab Take 1,000 mcg by mouth once daily. Levothyroxine 25 mcg cap Take 25 mcg by mouth once daily. apixaban (ELIQUIS) 5 mg tab tab(s) Take 1 tablet by mouth twice daily. nitroglycerin sublingual (NITROQUICK) 0.4 mg SL tablet Dissolve 1 tablet under the tongue every 5 minutes as needed for chest pain. furosemide (LASIX) 20 mg tablet Take 20 mg by mouth once daily. (Patient not taking: Reported on 09/15/2024) insulin detemir (LEVEMIR) 100 unit/mL injection Inject 8 Units subcutaneously once daily. In the morning (Patient not taking: Reported on 09/15/2024) Review of Systems Constitutional: Negative for fatigue. Respiratory: Negative for shortness of breath. Cardiovascular: Negative for chest pain and palpitations. Neurological: Negative for syncope. Psychiatric/Behavioral: The patient is not nervous/anxious. PHYSICAL EXAMINATION: BP 98/62 (BP Site: Right Arm, BP Position: Sitting, BP Cuff Size: Large Adult) Pulse 86 Resp 18 Ht 5' 4" (1.626 m) Wt 135 lb (61.2 kg) SpO2 93% BMI 23.17 kg/m BP w/Orthostatic Vitals Date and Time Orthostatic BP Orthostatic Pulse BP Pulse BP Position BP Site BP Cuff Size 11/19/24 1020 -- -- 98/62 86 Sitting Right Arm Large Adult Peak Flow Date and Time PF Resp 11/19/24 1020 -- 18 Physical Exam Constitutional: Appearance: Normal appearance. HENT: Head: Normocephalic and atraumatic. Eyes: Conjunctiva/sclera: Conjunctivae normal. Cardiovascular: Rate and Rhythm: Normal rate and regular rhythm. Pulmonary: Effort: Pulmonary effort is normal. No respiratory distress. Breath sounds: No stridor. Skin: General: Skin is dry. Coloration: Skin is not pale. Neurological: Mental Status: She is alert and oriented to person, place, and time. Psychiatric: Mood and Affect: Mood normal. I have personally reviewed the Electrocardiogram. Assessment PLAN AND RECOMMENDATIONS: ASSESSMENT/PLAN: 1. Permanent atrial fibrillation (HCC) - ICD9: 427.31, ICD10: I48.21 (primary diagnosis) Status post pacemaker implantation/AV node ablation, stable - ECG B/O W INTERP (MED OFFICE) 2. 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 Chloe Strong MD CONTACT INFORMATION: Chloe Strong MD documented in this encounter [facility] 11-19-2024 Note PPM check, (single l ead) Micra system with programming. ID x2. Here for routine PM evaluation. Offers no complaints. 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 Interrogation shows no observations based on current interrogation. Recommended replacement time is >10 yrs. Lead impedances and pacing threshold stable. Counters cleared. Next device check scheduled for patient, questions answered. Desiree Moss RN NOTE TO PROVIDERS: "CARD" Flowsheets contain detailed device programming and testing data. Paceart/Interrogation PDF can be found under CARDIAC DATA AND REPORT, "Scanned Documents" section. [facility] 09-15-2024 Note HNO ID: [id number] Author: LIZA ORTIZ MD Service: ? Author Type: Physician Type: Progress Notes Filed: 09/15/2024 14:45 Note Text: [facility] SECTION OF REGIONAL CARDIOLOGY Cardiology ([address]) [address] [facility] [id number] OUTPATIENT VISIT DATE 09/15/2024 PRIMARY CARE PHYSICIAN: Rajat Patel ([facility]) [address] [place] [address] HISTORY OF PRESENT ILLNESS: Ms. Corral is a 74 year old pleasant woman with a history of coronary artery disease with complex intervention of the LAD and RCA in June 2023, mitral valve and tricuspid valve regurgitation, paroxysmal atrial fibrillation, history of AV node ablation with pacemaker placement, hypertension, dyslipidemia who is here today for routine follow-up. According to her daughter, she has been doing well. They have noticed improvement in her functional capacity since she underwent coronary intervention. She has not had chest pain, chest pressure, or dyspnea on exertion. She has not had symptoms concerning for congestive heart failure including PND, orthopnea, or lower extremity edema. PAST MEDICAL HISTORY Diagnosis Date Acute rheumatic heart disease, unspecified Aortic valve insufficiency Atrial fibrillation (HCC) Diabetes mellitus type 2 in obese 03/2012 Heart disease, rheumatic History of PTCA 06/01/2023 LAD AND RCA Hyperlipemia Hypertension Hypothyroid Mitral valve regurgitation Osteopenia Pulmonary hypertension (HCC) Unspecified vitamin D deficiency 10/15/2008 Vit D level 10/09: 15.7, started weekly Vitamin D. PAST SURGICAL HISTORY Procedure Laterality Date AV YESSICA ABLATION 11/19/2023 With Micra implant; Dr. Strong at [facility] CARDIOVERSION x2 CHOLECYSTECTOMY 10/01/1982 Cholecystectomy MICRA AV LEADLESS PACEMAKER 11/19/2023 With AVN catheter ablation; Dr. Strong at [facility] PERCUTANEOUS CORONARY INTERVENTION 06/01/2023 LAD AND RCA TOTAL ABDOMINAL HYSTERECT W/WO RMVL TUBE OVARY 10/01/1975 Hysterectomy, ALY SOCIAL HISTORY Social History Tobacco Use Smoking status: Former Current packs/day: 0.00 Average packs/day: 1.5 packs/day for 15.0 years (22.5 ttl pk-yrs) Types: Cigarettes Start date: 10/01/1974 Quit date: 10/01/1989 Years since quittin.9 Smokeless tobacco: Never Substance Use Topics Alcohol use: Yes Comment: rarely Drug use: No FAMILY HISTORY Problem Relation Age of Onset None Father unknown health Stroke Mother POLYCYSTIC KIDNEY DISEASE,HEART DISEASE ,HYPERTENSION Hypertension Mother Heart Mother ? None Maternal Grandfather black lung other (polycystic kidney disease) Brother Breast Cancer Maternal Aunt Cancer Maternal Aunt leukemia Heart Brother AF None Sister Ischemic Heart Disease Brother [place] 66 ALLERGIES: ALLERGIES Allergen Reactions Marco Inhibitors Cough Losartan Potassium Rash At higher doses (ok at low dose) MEDICATIONS: FARXIGA 10 mg tablet Take 10 mg by mouth once daily. losartan (COZAAR) 25 mg tablet Take 25 mg by mouth once daily. metoprolol tartrate, short acting, (LOPRESSOR) 50 mg tablet Take 50 mg by mouth two times a day. acetylcysteine (NAC) 600 mg capsule Take 600 mg by mouth two times a day. cholecalciferol (VITAMIN D3) 5,000 unit tab Take 5,000 Units by mouth once daily. BASAGLAR KWLINDSAYPEN U-100 INSULIN 100 unit/mL (3 mL) INJECT 6 UNITS SUBCUTANEOUSLY TWICE DAILY donepezil (ARICEPT) 10 mg tablet Take 10 mg by mouth daily at bedtime. sertraline (ZOLOFT) 50 mg tablet Take 75 mg by mouth once daily. risperiDONE (RISPERDAL) 1 mg tablet Take 1 mg by mouth as needed. clopidogrel (PLAVIX) 75 mg tablet Take 1 tablet by mouth once daily pravastatin (PRAVACHOL) 20 mg tablet metFORMIN (GLUCOPHAGE) 500 mg tablet Take 1,000 mg by mouth twice daily with meals. nitroglycerin sublingual (NITROQUICK) 0.4 mg SL tablet Dissolve 1 tablet under the tongue every 5 minutes as needed for chest pain. cyanocobalamin (VITAMIN B-12) 1,000 mcg tab Take 1,000 mcg by mouth once daily. Levothyroxine 25 mcg cap Take 25 mcg by mouth once daily. apixaban (ELIQUIS) 5 mg tab tab(s) Take 1 tablet by mouth twice daily. metoprolol succinate ER (TOPROL XL) 50 mg 24 hr tablet Take 50 mg by mouth two times a day. (Patient not taking: Reported on 09/15/2024) furosemide (LASIX) 20 mg tablet Take 20 mg by mouth once daily. (Patient not taking: Reported on 09/15/2024) insulin detemir (LEVEMIR) 100 unit/mL injection Inject 8 Units subcutaneously once daily. In the morning (Patient not taking: Reported on 09/15/2024) REVIEW OF SYSTEMS: Review of Systems Constitutional: Negative for chills, fever, malaise/fatigue and weight loss. HENT: Negative for hearing loss and sore throat. Eyes: Negative for blurred vision and double vision. Respiratory: Negative. Cardiovascular: Negative. Genitourinary: Negative for (more content not included)... [facility] 08-31-2024 Note Trekking Guide Authen tication Interface Message Text CURRENT STATUS IS EMERGENCY . : Any questions regarding PATIENT CLASS/STATUS should be directed to the Care Management Departments: [facility] [phone] or [facility] [phone] or [facility] [phone]. [facility] 08-22-2024 Telephone encounter Note Patient's request for medication is as follows: Requested Prescriptions Pending Prescriptions Disp Refills clopidogrel (PLAVIX) 75 mg tablet [Pharmacy Med Name: Clopidogrel Bisulfate 75 MG Oral Tablet] 90 tablet 0 Sig: Take 1 tablet by mouth once daily Patient last seen on 07/06/2023. Follow up scheduled on 09/15/2024. Prescription(s) as above. Please process accordingly. Kay Madera LPN [facility] 08-22-2024 Miscellaneous Notes Patient's request for medication is as follows: Requested Prescriptions Pending Prescriptions Disp Refills clopidogrel (PLAVIX) 75 mg tablet [Pharmacy Med Name: Clopidogrel Bisulfate 75 MG Oral Tablet] 90 tablet 0 Sig: Take 1 tablet by mouth once daily Patient last seen on 07/06/2023. Follow up scheduled on 09/15/2024. Prescription(s) as above. Please process accordingly. Kay Madera LPN documented in this encounter [facility] 08-12-2024 History of Present illness Narrative Images from the original note were not included. [facility] [place] [facility] [place] [address] Dept: [phone] Dept Loc: [phone] Visit type: [facility] Follow Up Visit Reason for Visit: Memory Loss Visit Date: 08/12/2024 Assessment and Plan 1. 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 Anger - sertraline (Zoloft) 50 MG tablet; TAKE 1.5 TABLETS BY MOUTH DAILY, Normal - Cognitive testing was stable compared to last testing in 12/2023. - Remains in moderate stage - Continue donepezil 10 mg daily for memory loss but switch to AM dosing due to vivid dreams. Tolerating current dose of medication. Will continue to follow along with medication and adjust PRN. - For anger, increase Sertraline to 75 mg daily. Pt is having increased anger/agitation towards hsbd in the evening. No safety issues at this time. Briefly discussed additional medication options (such as Mirtazapine, Trazodone or antipsychotics) if agitation escalates. Will continue to follow along at future visits. - Continue non-pharmacologic interventions for memory - Has adequate supervision over 5 Ms - F/u in 6 months for routine visit/memory testing Follow up in about 6 months (around 02/09/2025). Subjective HPI: Amalia Corral is a 73 y.o. female who presents to the [facility] for a follow-up visit. The patient is known to me. Established pt, initially seen in 03/2023, diagnosed with early moderate Alzheimer's disease in 07/2023. Last testing done in 12/2023- [place] 13 (MIS 2), CDT 5. Last seen in 03/2024- continued donepezil, started sertraline for mood/anger/crying episodes. History obtained from caregiver(s): Pt is here with her dtr Rick. Memory- Slow progressive decline in short term memory over the past few months since last visit in 03/2024. Function- Going to [facility] twice per week. Pt needs direct in the shower and someone there for safety. Personal care- gets agitated when dtr asks her to take a shower sometimes. Pt is wearing depends during the day and at night now. Increased urinary incontinence while she's sleeping or taking a nap. Safety issues- Had a fall on . No injuries. No other falls. No kitchen safety issues. Pt will help wash dishes and prep food with dtr. No wandering outside the home. Mood/behaviors- Still has some picking/scatching. Behaviors- gets upset with hsbd in the evening. Will throw the TV remote sometimes. Not happening often. Appetite- Good. Has lost some weight because she's been more active and eating healthy. Sleep- Gets up a few times to go to the bathroom. Sometimes has bad dreams, paranoid. Advanced directives: Power of Marketing Strategy Manager- completed but NOT scanned into Epic Living Will- completed and scanned into [facility] DNR- not discussed today History obtained from patient: Doing well. Not having pain. Mood- good, "better than it was." Not feeling depressed or anxious. Sleep- no issues. Appetite- "too good." Reviewed progress notes completed by ANMOL (ROS) and social work. Allergies Allergen Reactions Marco Inhibitors Cough Losartan Rash Current Outpatient Medications Medication Sig Dispense Refill Acetylcysteine (NAC) 600 MG capsule capsule Take 600 mg by mouth in the morning and 600 mg in the evening. One tablet by mouth twice daily. apixaban (Eliquis) 5 MG tablet Take 5 mg by mouth 2 times daily. Take one tablet by mouth twice daily clopidogrel (Plavix) 75 MG tablet Take 75 mg by mouth daily. cyanocobalamin (Vitamin B-12) 1000 MCG tablet Take 1,000 mcg by mouth daily. Take one tablet by mouth daily dapagliflozin (Farxiga) 10 MG tablet Take 10 mg by mouth daily. One tablet by mouth once daily donepezil (Aricept) 10 MG tablet Take 1 tablet (10 mg) by mouth daily. 90 tablet 1 insulin detemir (Levemir) 100 UNIT/ML injection Inject 8 Units under the skin Nightly. levothyroxine (Synthroid, Levoxyl) 25 MCG tablet Take 25 mcg by mouth every morning (before breakfast). Take one tablet by mouth daily losartan (Cozaar) 25 MG tablet Take 25 mg by mouth daily. One tablet by mouth once daily metFORMIN (Glucophage) 500 MG tablet Take 1,000 mg by mouth in the morning and 1,000 mg in the evening. Take with meals. metoprolol tartrate (Lopressor) 50 MG tablet Take 50 mg by mouth 2 times daily. Take one tablet by mouth twice daily nitroglycerin (Nitrostat) 0.[address] 0.4 mg under the tongue every 5 minutes as needed for chest pain. sertraline (Zoloft) 50 MG tablet TAKE 1.5 TABLETS BY MOUTH DAILY 135 tablet 1 [employer]iCare Short Pen [place] 31G X 8 MM [facility] No current facility-administered medications for this visit. Past Medical History: Diagnosis Date Alzheimer's dementia (HCC) diagnosed 07/2023 Diabetes mellitus (HCC) Disease of thyroid gland Heart disease Hyperlipemia Hypertension Osteoporosis Pacemaker Toxic encephalopathy Urinary tract infection Social History Tobacco Use Smoking status: Never Smokeless tobacco: Never Substance Use Topics Alcohol use: Never Past Surgical History: Procedure Laterality Date CARDIAC CATHETERIZATION 2023 CARDIAC PACEMAKER PLACEMENT 11/19/2023 CHOLECYSTECTOMY CORONARY ANGIOPLASTY WITH STENT PLACEMENT 06/01/2023 HYSTERECTOMY Family History Problem Relation Name Age of Onset Hypertension Mother Kidney failure Mother Heart disease Mother No Known Problems Father Heart disease Brother Family Status Relation Name Status Mother (Not Specified) Father (Not Specified) Brother No partnership data on file Objective Vitals: 08/12/24 1104 BP: 104/62 BP Location: Left arm Patient Position: Sitting BP Cuff Size: Adult Pulse: 75 Weight: 147 lb 9.6 oz (67 kg) Wt Readings from Last 3 Encounters: 08/12/24 147 lb 9.6 oz (67 kg) 04/29/24 154 lb 6.4 oz (70 kg) 01/29/24 152 lb (68.9 kg) Physical Exam Constitutional: General: She is not in acute distress. Appearance: She is not ill-appearing. Comments: Elderly female. Pleasant and cooperative. Well kempt, well nourished. HENT: Head: Normocephalic. Comments: Wears glasses. No hearing aids. Right Ear: External ear normal. Left Ear: External ear normal. Cardiovascular: Rate and Rhythm: Normal rate and regular rhythm. Heart sounds: No murmur heard. Pulmonary: Effort: Pulmonary effort is normal. No respiratory distress. Breath sounds: Normal breath sounds. Abdominal: General: Abdomen is flat. Bowel sounds are normal. Palpations: Abdomen is soft. Tenderness: There is no abdominal tenderness. Musculoskeletal: General: Swelling (trace, sock lines BLE) present. Deformity: 1-2+ BLE. Comments: Muscle strength 4/5 BLE Skin: General: Skin is warm and dry. Neurological: Comments: Alert and oriented x 2 (to self and place, doesn't know year but knows month). Knows 911. Speech clear and appropriate. Follows commands. No tremors BUE. Psychiatric: Comments: Flat affect. Appropriate behavior Data Reviewed and Summarized Testing: The following tests were performed at today's visit and scanned in to thechart: MoCA score: 14, MIS score: 2 Clock drawing score: 5 PHQ-9 score: 0 KAITLYNN score: not done I independently reviewed the Reji Cognitive Assessment from 08/12/2024. Test scanned in to the chart. I spent total time of 44 minutes face to face with the patient and/or family discussing the diagnosis and importance of compliance with the treatment plan as well as documenting on the day of the visit. In addition, that total time includes the following (this does not include the time spent in Advanced Care Planning which, if done, was documented elsewhere in the note): -Reviewing previous notes, -Reviewing previous cognitive tests, -Obtaining and/or reviewing separately obtained history, -Ordering prescription medications, tests and procedures, -Communicating results to the patient/family/caregiver, -Counseling/educating the patient/family/caregiver, -Documenting clinical information in the patients electronic record, -Coordination of care for the patient, and -Performing a medically appropriate exam and/or evaluation I, MAHAMED Sanchez CNP, furnish ongoing care related to Amalia donis, serious and complex condition(s) Alzheimer's dementia. I assume responsibility for the patient's ongoing medical care of this condition. Review of Systems Constitutional: Positive for fatigue. Negative for appetite change. HENT: Positive for dental problem. Negative for hearing loss and trouble swallowing. Eyes: Negative for visual disturbance. Gastrointestinal: Negative for constipation and diarrhea. Genitourinary: Negative for difficulty urinating and dysuria. Musculoskeletal: Positive for arthralgias, back pain and gait problem. Neurological: Negative for tremors, speech difficulty and weakness. Psychiatric/Behavioral: Positive for agitation, confusion and hallucinations. Negative for dysphoric mood and sleep disturbance. The patient is nervous/anxious. Senior Services/Geriatrics Social History Present at visit: patient, daughter- Rick Marital status: Children: 3 children (1 local) Living arrangement: patient and spouse lives with mode Cabrera >>01/29/24 same >>08/12/24 same Household safety problems: none >>01/29/24 burned pop-tart in microwave >>08/12/24 one fall, no injury, Concerning Behaviors: Hallucinations during hospital stay/UTI >>01/29/24 none Wandering potential: No >>01/29/24 no >>08/12/24 no Pets: No Guns in the home: None Elder abuse: No/Denied Concerns >>01/29/24 no Alcohol/Tobacco/Marijuana/Drug Use History: none service: Spouse was a [place] ([place]) Highest level of education: 11th grade 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 Activities: exercise video 30 min/day, prep food for meals, journaling, cleaning, friends/family visting, talks on phone daily with friends >>01/29/24 cleaning, gets together with friends, goes to [employer] to shop >>08/12/24 Adult Day Program 2 days, will have friends come to visit Exercise: exercise 30 min/day Finances: has savings, over $2000, SS income $1900 Healthcare Power of Marketing Strategy Manager: Yes: daughter Rick Financial Power of Marketing Strategy Manager: Yes: mode Cabrera Living Will: Yes Guardian: No Code Status: Full Code Primary Caregiver: mode Cabrera Current care plan/supervision: >>01/29/24 daughter with them most of the time, has someone stay if going to be gone, can leave a few hours >>08/12/24 daughter with patient most of the time if patient not at Adult Day Program Community resources: None >>01/29/24 video monitoring >>08/12/24 on [employer] now, Adult Day Program 2 days per week, video monitoring Caregiver stressors: some caregiver stress due to medical needs of both patient and spouse >>01/29/24 daughter denies too much stress >>08/12/24 daughter managing stress better since [facility] started Goals for care: evaluate memory, keep patient at home with daughter As a Caregiver, What Matters Most to You: Increase understanding of community resources >>04/24/23 Patient and had been living in [place] with another one of their children. Has moved here 5 weeks ago. Getting lost driving. Daughter Rick noticed that patient is having memory issues and having confusion. Had a hospitalization due to low heart rate, very confused in the hospital. Rick is having some stress due to caregiving for both patient and patient's spouse- both having much medical issues. >>01/29/24 Patient having some slight decline on memory test today. Daughter continues to be main caregiver for patient and spouse. Daughter denies too much caregiver stress. Daughter is considering taking patient and spouse to Adult Day Program to get them engaged in activities. SW gave some tips on how to approach that- encouraged her to try in order to give her some respite. No resources given today. >>08/12/24 [facility], patient and spouse are going to Adult Day Program 2 days per week, may increase days in the future. SW talked to daughter about all the services that [facility] can provide, aides, Depends, medical equipment, respite stays at facilities. Daughter will talk to [facility] Program Director Substance Abuse about these things. Patient staying stable on memory test today; daughter noticing some slight decline in function. SW encouraged daughter to bring in Healthcare Power of Marketing Strategy Manager and living will so that we can scan into patient's chart. No resources given today. Functional Status (I: Independent, A: Assisted, D: Dependent) ADLs I A D Notes Bathing [] [] [x] Needs reminders/cuing, shower set up. >>01/29/24 same >>08/12/24 needs hands on help Dressing [] [] [x] Would wear the same clothes if not cued >>01/29/24 will put clean clothes in laundry, daughter cues her to change clothes >>08/12/24 hands on help with dressing Toileting [] [x] [] No issues >>01/29/24 puts too much toilet paper in toilet, clogging toilet, goes through 3 rolls in 2 days >>08/12/24 wearing Depends all the time now, keeps taking of Depends Transfers [x] [] [] No issues >>01/29/24 with some difficulty Feeding [] [x] [] No issues >>01/29/24 unable to cut meat anymore >>08/12/24 same Ambulation [] [] [] Has a walker, not always using it Assistive devices: Cane, Raised toilet seat, Shower chair, and Walker IADLs I A D Telephone [] [x] [] Has a cell phone that she shares with spouse, can call and answer, sometimes needs some help using the phone, daughter sets up own appointments, needs reminders, was missing appointments >>01/29/24 same >>08/12/24 can call someone who just called her, harder to find contacts on phone, needs assistance Transportation [] [] [x] Driving safety concerns: Not currently driving, was driving until she came here, daughter keeping keys until she knows if she can drive or not >>01/29/24 no driving Shopping [] [] [x] Patient goes with daughter, could follow a list in the store, daughter assists >>01/29/24 daughter keeps patient on task >>08/12/24 daughter shops Meal prep [] [x] [] Does help with meal prep with daughter's cuing, not using oven/stove top, can use microwave- always just presses 1 on the microwave >>01/29/24 no longer using oven or microwave, does help some with meal prep >>08/12/24 same Housework [] [x] [] Cleaning unprompted, may do it more than once >>01/29/24 not always rinsing dishes, they may have soap still on them >>08/12/24 makes bed with assistance, tries to do some cleaning tasks Medications [] [] [x] Daughter administers medications, was having a lot of trouble with them >>01/29/24 same >>08/12/24 same, meds are locked up Finances [] [] [x] Daughter assists with paying bills, not on account >>01/29/24 daughter does sit with patient to do bills , now on account >>08/12/24 daughter manages now documented in this encounter [facility] 08-12-2024 Instructions Ivanna Ren, REPRESENTATIVE PHLEBOTOMY SERVICES - LUMBER TYING MACHINE OPERATOR - 08/12/2024 11:00 AM EST Mrs. Corral was seen today for memory/geriatric evaluation. Memory testing today was about the same compared to last visit. Medications: - Continue donepezil 10 mg but switch to taking this every morning. Refill sent today. - Increase sertraline to 75 mg (1.5 tablets) daily for mood. If evening agitation escalates, please let me know right away. - Contact me at any time if you're having problems with the medication adjustments. 5 M s - supervision/assistance with medications, medical care, meals, money, mobility (falls). Avoiding medications that cause confusion and falls - Tylenol PM, Benadryl. Avoid smoking or drinking alcohol. General recommendations for safe drinkin drink per day for females, 2 drinks per day for males. Recommend physical, mental, and social activity - Ex [employer] [facility], Silver Sneakers. Recommend routines, schedules, and organization. Recommend getting adequate sleep and eating balanced diet. Continue regular visits with primary care provider to maintain chronic health conditions. Follow-up visit in 6 months for repeat memory testing/routine visit. documented in this encounter [facility] 08-12-2024 Note Mrs. Corral was se en today for memory/geriatric evaluation. Memory testing today was about the same compared to last visit. Medications: - Continue donepezil 10 mg but switch to taking this every morning. Refill sent today. - Increase sertraline to 75 mg (1.5 tablets) daily for mood. If evening agitation escalates, please let me know right away. - Contact me at any time if you're having problems with the medication adjustments. 5 M?s - supervision/assistance with medications, medical care, meals, money, mobility (falls). Avoiding medications that cause confusion and falls - Tylenol PM, Benadryl. Avoid smoking or drinking alcohol. General recommendations for safe drinkin drink per day for females, 2 drinks per day for males. Recommend physical, mental, and social activity - Ex [employer] [facility], Silver Sneakers. Recommend routines, schedules, and organization. Recommend getting adequate sleep and eating balanced diet. Continue regular visits with primary care provider to maintain chronic health conditions. Follow-up visit in 6 months for repeat memory testing/routine visit. [facility] 07-08-2024 Telephone encounter Note Pt's daughter notified of providers response. She verbalized understanding and is leaning toward not pursuing the GISELE. Will keep Dec appt and call in the interim with any concerns. Ciera Bennett MA [facility] 07-08-2024 Miscellaneous Notes Pt's daughter notified of providers response. She verbalized understanding and is leaning toward not pursuing the GISELE. Will keep Dec appt and call in the interim with any concerns. Ciera Bennett MA Per Dr. Ortiz. They were already aware of the mitral valve regurgitation. It is up to the family if they want her to be more fully evaluated with GISELE. He is unsure what benefit it would provide since she is not likely a surgical candidate. Can discuss in more detail at August office visit. Ciera Bennett MA Pts daughter calling to inform provider that pt had ECHO dont 06/23 at [facility] and they are telling her that it is worse and that she needs a GISELE. She saw [facility] inadvertently. Pt has dementia and the appt was on the books without the daughters knowledge apparently. ECHO, EKG, and consult obtained from [facility] and scanned into [employer]. Dr. Ortiz will review on Sunday while here at [facility]. Ciera Bennett MA documented in this encounter [facility] 07-07-2024 Telephone encounter Note Per Dr. Ortiz. They were already aware of the mitral valve regurgitation. It is up to the family if they want her to be more fully evaluated with GISELE. He is unsure what benefit it would provide since she is not likely a surgical candidate. Can discuss in more detail at August office visit. Ciera Bennett MA [facility] 07-03-2024 Telephone encounter Note Pts daughter calling to inform provider that pt had ECHO dont 06/23 at [facility] and they are telling her that it is worse and that she needs a GISELE. She saw [facility] inadvertently. Pt has dementia and the appt was on the books without the daughters knowledge apparently. ECHO, EKG, and consult obtained from [facility] and scanned into [employer]. Dr. Ortiz will review on Sunday while here at [place] site. Ciera Bennett MA [facility] 06-25-2024 Telephone encounter Note PCP has tried niacin to help but that's not helping. [facility] heart doctor started 2 new medications since last visit but she doesn't feel that's the issue with how obsessive she is with it. Daughter Has noticed bumpy areas but she isnt sure if its from her rubbing on her skin so much prior to her tearing the skin open. but also stated they were out of their normal laundry soap that she uses so she grabbed tide and didn't think that would be an issue but she will go back to the store to grab the previous soap used along with the loratadine and will follow back up on Sunday if no changes are seen. [facility] 06-25-2024 Miscellaneous Notes PCP has tried niacin to help but that's not helping. [facility] heart doctor started 2 new medications since last visit but she doesn't feel that's the issue with how obsessive she is with it. Daughter Has noticed bumpy areas but she isnt sure if its from her rubbing on her skin so much prior to her tearing the skin open. but also stated they were out of their normal laundry soap that she uses so she grabbed tide and didn't think that would be an issue but she will go back to the store to grab the previous soap used along with the loratadine and will follow back up on Sunday if no changes are seen. Please advise dtr of the following: - I would recommend that pt starts taking OTC loratadine or similar product to see if itching improves. I would NOT try benadryl because this can increase risk of falls and confusion. - If the OTC allergy medicine doesn't help, I can start a medicine called hydroxyzine at a very low dose to avoid excessive sedation. - Is the dtr able to identify a trigger for the itching? Any new detergents or skin care products? Any new medicines or supplements since our last visit? Any rash associated with the itching? S: Dtr Rick calling [facility] for pt w/ itching B: Months; YASMANI 04/29/24; NOV 08/12/24 A: Dtr reports pt w/ excessive scratching & picking at her skin. States she has ripped skin open to her arms and back. Dtr states she talked to Tierra re: sx last visit but is getting worse. Dtr asking for medication for her sx. Dtr concerned that pt keeps damaging her skin & has hx of DM. States she has tried the cristina gloves as advised and pt removes them. Dtr has also kept pt's nails short and layers her clothing & placed clothes backwards but pt removes. Dtr also takes pt to adult daycare twice a week to help distract pt. Also reports pt being more alert lately but behavior is obsessive/compulsive. R: Informed dtr that RN will send TE to provider for recommendation & office will call back to advise. Reason for Disposition Itching is a chronic symptom (recurrent or ongoing AND present > 4 weeks) Protocols used: Itching - [id number] documented in this encounter [facility] 06-25-2024 Telephone encounter Note Please advise dtr of the following: - I would recommend that pt starts taking OTC loratadine or similar product to see if itching improves. I would NOT try benadryl because this can increase risk of falls and confusion. - If the OTC allergy medicine doesn't help, I can start a medicine called hydroxyzine at a very low dose to avoid excessive sedation. - Is the dtr able to identify a trigger for the itching? Any new detergents or skin care products? Any new medicines or supplements since our last visit? Any rash associated with the itching? T [facility] 06-25-2024 Telephone encounter Note S: Dtr Rick calling [facility] for pt w/ itching B: Months; YASMANI 04/29/24; NOV 08/12/24 A: Dtr reports pt w/ excessive scratching & picking at her skin. States she has ripped skin open to her arms and back. Dtr states she talked to Tierra re: sx last visit but is getting worse. Dtr asking for medication for her sx. Dtr concerned that pt keeps damaging her skin & has hx of DM. States she has tried the cristina gloves as advised and pt removes them. Dtr has also kept pt's nails short and layers her clothing & placed clothes backwards but pt removes. Dtr also takes pt to adult daycare twice a week to help distract pt. Also reports pt being more alert lately but behavior is obsessive/compulsive. R: Informed dtr that RN will send TE to provider for recommendation & office will call back to advise. Reason for Disposition Itching is a chronic symptom (recurrent or ongoing AND present > 4 weeks) Protocols used: Itching - [id number] [facility] 04-29-2024 History of Present illness Narrative Review of Systems Constitutional: Negative for fatigue, fever and unexpected weight change. HENT: Positive for dental problem and trouble swallowing. Negative for hearing loss. Eyes: Negative for visual disturbance. Respiratory: Positive for cough and shortness of breath. Cardiovascular: Negative for leg swelling. Gastrointestinal: Negative for constipation and diarrhea. Genitourinary: Negative for difficulty urinating and dysuria. Musculoskeletal: Positive for arthralgias, back pain and gait problem. Neurological: Negative for tremors, speech difficulty and weakness. Psychiatric/Behavioral: Positive for agitation and confusion. Negative for dysphoric mood, hallucinations and sleep disturbance. The patient is nervous/anxious. Images from the original note were not included. [facility] [address] [place] [address] Dept: [phone] Dept Loc: [phone] Visit type: [facility] Follow Up Visit Reason for Visit: Memory Loss Visit Date: 04/29/2024 Assessment and Plan 1. 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 Anger - sertraline (Zoloft) 50 MG tablet; Take half tablet (25 mg) daily for 2 weeks then increase to 1 tablet (50 mg) daily thereafter, Normal - No cognitive testing today, will repeat at next visit in 3 months - Still moderate stage - Continue medications: Donepezil 10 mg nightly for memory, tolerating - Anger/mood- More mood issues since UTI. Having crying episodes and increased anger towards hsbd. Start Sertraline 25 mg daily for 2 weeks then increase to 50 mg daily thereafter. Discussed SE and to contact office with problems. Will follow-up on medication in 3 months. - Continue non-pharmacologic interventions for memory - Has adequate level of supervision at this time-- dtr providing - F/u in 3 months for medication check and repeat memory testing/routine visit Follow up in about 3 months (around 07/30/2024) for mediation check and repeat memory testing. Subjective HPI: Amalia Corral is a 73 y.o. female who presents to the [facility] for a follow-up visit. The patient is known to me. Initially seen in 03/2023, diagnosed with early moderate Alzheimer's disease in 07/2023. Last seen in 12/2023- [place] 13 (MIS 2), CDT 5, still moderate stage, more physically active after ablation, started on donepezil. History obtained from caregiver(s) and patient together: Pt is here with her dtr Rick. Memory- No progressive declines in short term memory over the past few months since last visit in 12/2023. Function- Per daughter, pt has been picking the skin on her arms. Pt states that sometimes her arms or itchy. Sometimes she picks until she has open areas. Dtr has tried covering them, which seems to help. No big changes with day-to-day function otherwise. Safety issues- No recent falls. Walking is better, even since last visit. No wandering outside the home. Sometimes pt/hsbd pack their things, like they want to go home. No kitchen safety issues. Sleep- Gets up once per night to go to the bathroom. No issues. Mood- More anger/frustration with since UTI. Hasn't improved like other symptoms. Will having crying episodes 2-3 days/week. Had UTI about 1-2 months ago. Was having increased incontinence, confusion, and hallucinations. Ended up in ER. Symptoms improved gradually after she was treated for UTI. Reviewed progress notes completed by ANMOL FERNANDO) and social work. Allergies Allergen Reactions Marco Inhibitors Cough Losartan Rash Current Outpatient Medications Medication Sig Dispense Refill Acetylcysteine (NAC) 600 MG capsule capsule Take 600 mg by mouth in the morning and 600 mg in the evening. One tablet by mouth twice daily. dapagliflozin (Farxiga) 10 MG tablet Take 10 mg by mouth daily. One tablet by mouth once daily losartan (Cozaar) 25 MG tablet Take 25 mg by mouth daily. One tablet by mouth once daily apixaban (Eliquis) 5 MG tablet Take 5 mg by mouth 2 times daily. Take one tablet by mouth twice daily clopidogrel (Plavix) 75 MG tablet Take 75 mg by mouth daily. cyanocobalamin (Vitamin B-12) 1000 MCG tablet Take 1,000 mcg by mouth daily. Take one tablet by mouth daily donepezil (Aricept) 10 MG tablet Take 1 tablet (10 mg) by mouth Nightly. 90 tablet 1 insulin detemir (Levemir) 100 UNIT/ML injection Inject 8 Units under the skin Nightly. levothyroxine (Synthroid, Levoxyl) 25 MCG tablet Take 25 mcg by mouth every morning (before breakfast). Take one tablet by mouth daily metFORMIN (Glucophage) 500 MG tablet Take 1,000 mg by mouth in the morning and 1,000 mg in the evening. Take with meals. metoprolol tartrate (Lopressor) 50 MG tablet Take 50 mg by mouth 2 times daily. Take one tablet by mouth twice daily nitroglycerin (Nitrostat) 0.[address] 0.4 mg under the tongue every 5 minutes as needed for chest pain. sertraline (Zoloft) 50 MG tablet Take half tablet (25 mg) daily for 2 weeks then increase to 1 tablet (50 mg) daily thereafter 30 tablet 2 UltiCare Short Pen [place] 31G X 8 MM [facility] No current facility-administered medications for this visit. Past Medical History: Diagnosis Date Alzheimer's dementia (HCC) diagnosed 07/2023 Diabetes mellitus (HCC) Disease of thyroid gland Heart disease Hyperlipemia Hypertension Pacemaker Toxic encephalopathy Urinary tract infection Social History Tobacco Use Smoking status: Never Smokeless tobacco: Never Substance Use Topics Alcohol use: Never Past Surgical History: Procedure Laterality Date CARDIAC CATHETERIZATION 2023 CARDIAC PACEMAKER PLACEMENT 11/19/2023 CHOLECYSTECTOMY CORONARY ANGIOPLASTY WITH STENT PLACEMENT 06/01/2023 HYSTERECTOMY Family History Problem Relation Name Age of Onset Hypertension Mother Kidney failure Mother Heart disease Mother No Known Problems Father Heart disease Brother Family Status Relation Name Status Mother (Not Specified) Father (Not Specified) Brother No partnership data on file Objective Vitals: 04/29/24 1103 BP: 111/64 BP Location: Left arm Patient Position: Sitting BP Cuff Size: Adult Pulse: 86 Weight: 154 lb 6.4 oz (70 kg) Wt Readings from Last 3 Encounters: 04/29/24 154 lb 6.4 oz (70 kg) 01/29/24 152 lb (68.9 kg) 07/31/23 149 lb 3.2 oz (67.7 kg) Physical Exam Constitutional: General: She is not in acute distress. Appearance: She is not ill-appearing. Comments: Elderly female. Pleasant and cooperative. Well kempt, well nourished. HENT: Head: Normocephalic. Comments: Wears glasses. No hearing aids. Right Ear: External ear normal. Left Ear: External ear normal. Cardiovascular: Rate and Rhythm: Normal rate and regular rhythm. Heart sounds: Murmur heard. Pulmonary: Effort: Pulmonary effort is normal. No respiratory distress. Breath sounds: Normal breath sounds. Abdominal: General: Abdomen is flat. Bowel sounds are normal. Palpations: Abdomen is soft. Tenderness: There is no abdominal tenderness. Musculoskeletal: General: Swelling (trace, sock lines BLE) present. Deformity: 1-2+ BLE. Comments: Muscle strength 4/5 BLE Skin: General: Skin is warm and dry. Neurological: Comments: Alert and oriented x 2 (to self and place, doesn't know year but knows month). Knows 911. Speech clear and appropriate. Follows commands. No tremors BUE. Psychiatric: Comments: Appropriate affect and behavior Data Reviewed and Summarized Testing: The following tests were performed at today's visit and scanned in to thechart: - No cognitive testing today, too soon to repeat; last testing done in 12/2023- [place] 13 (MIS 2), CDT 5 I spent total time of 22 minutes face to face with the patient and/or family discussing the diagnosis and importance of compliance with the treatment plan as well as documenting on the day of the visit. In addition, that total time includes the following: -Reviewing previous notes, -Reviewing previous cognitive tests, -Obtaining and/or reviewing separately obtained history, -Ordering prescription medications, tests and procedures, -Communicating results to the patient/family/caregiver, -Counseling/educating the patient/family/caregiver, -Documenting clinical information in the patients electronic record, -Coordination of care for the patient, and -Performing a medically appropriate exam and/or evaluation I, MAHAMED Sanchez CNP, furnish ongoing care related to Amalia Corral single, serious and complex condition Alzheimer's dementia. I assume responsibility for the patient's ongoing medical care of this condition. documented in this encounter [facility] 04-29-2024 History of Present illness Narrative Review of Systems Constitutional: Negative for fatigue, fever and unexpected weight change. HENT: Positive for dental problem and trouble swallowing. Negative for hearing loss. Eyes: Negative for visual disturbance. Respiratory: Positive for cough and shortness of breath. Cardiovascular: Negative for leg swelling. Gastrointestinal: Negative for constipation and diarrhea. Genitourinary: Negative for difficulty urinating and dysuria. Musculoskeletal: Positive for arthralgias, back pain and gait problem. Neurological: Negative for tremors, speech difficulty and weakness. Psychiatric/Behavioral: Positive for agitation and confusion. Negative for dysphoric mood, hallucinations and sleep disturbance. The patient is nervous/anxious. Images from the original note were not included. [facility] [address] [address] Dept: [phone] Dept Loc: [phone] Visit type: [facility] Follow Up Visit Reason for Visit: Memory Loss Visit Date: 04/29/2024 Assessment and Plan 1. 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 Anger - sertraline (Zoloft) 50 MG tablet; Take half tablet (25 mg) daily for 2 weeks then increase to 1 tablet (50 mg) daily thereafter, Normal - No cognitive testing today, will repeat at next visit in 3 months - Still moderate stage - Continue medications: Donepezil 10 mg nightly for memory, tolerating - Anger/mood- More mood issues since UTI. Having crying episodes and increased anger towards hsbd. Start Sertraline 25 mg daily for 2 weeks then increase to 50 mg daily thereafter. Discussed SE and to contact office with problems. Will follow-up on medication in 3 months. - Continue non-pharmacologic interventions for memory - Has adequate level of supervision at this time-- dtr providing - F/u in 3 months for medication check and repeat memory testing/routine visit Follow up in about 3 months (around 07/30/2024) for mediation check and repeat memory testing. Subjective HPI: Amalia Corral is a 73 y.o. female who presents to the [facility] for a follow-up visit. The patient is known to me. Initially seen in 03/2023, diagnosed with early moderate Alzheimer's disease in 07/2023. Last seen in 12/2023- [place] 13 (MIS 2), CDT 5, still moderate stage, more physically active after ablation, started on donepezil. History obtained from caregiver(s) and patient together: Pt is here with her dtr Rick. Memory- No progressive declines in short term memory over the past few months since last visit in 12/2023. Function- Per daughter, pt has been picking the skin on her arms. Pt states that sometimes her arms or itchy. Sometimes she picks until she has open areas. Dtr has tried covering them, which seems to help. No big changes with day-to-day function otherwise. Safety issues- No recent falls. Walking is better, even since last visit. No wandering outside the home. Sometimes pt/hsbd pack their things, like they want to go home. No kitchen safety issues. Sleep- Gets up once per night to go to the bathroom. No issues. Mood- More anger/frustration with since UTI. Hasn't improved like other symptoms. Will having crying episodes 2-3 days/week. Had UTI about 1-2 months ago. Was having increased incontinence, confusion, and hallucinations. Ended up in ER. Symptoms improved gradually after she was treated for UTI. Reviewed progress notes completed by ANMOL (KARINE) and social work. Allergies Allergen Reactions Marco Inhibitors Cough Losartan Rash Current Outpatient Medications Medication Sig Dispense Refill Acetylcysteine (NAC) 600 MG capsule capsule Take 600 mg by mouth in the morning and 600 mg in the evening. One tablet by mouth twice daily. dapagliflozin (Farxiga) 10 MG tablet Take 10 mg by mouth daily. One tablet by mouth once daily losartan (Cozaar) 25 MG tablet Take 25 mg by mouth daily. One tablet by mouth once daily apixaban (Eliquis) 5 MG tablet Take 5 mg by mouth 2 times daily. Take one tablet by mouth twice daily clopidogrel (Plavix) 75 MG tablet Take 75 mg by mouth daily. cyanocobalamin (Vitamin B-12) 1000 MCG tablet Take 1,000 mcg by mouth daily. Take one tablet by mouth daily donepezil (Aricept) 10 MG tablet Take 1 tablet (10 mg) by mouth Nightly. 90 tablet 1 insulin detemir (Levemir) 100 UNIT/ML injection Inject 8 Units under the skin Nightly. levothyroxine (Synthroid, Levoxyl) 25 MCG tablet Take 25 mcg by mouth every morning (before breakfast). Take one tablet by mouth daily metFORMIN (Glucophage) 500 MG tablet Take 1,000 mg by mouth in the morning and 1,000 mg in the evening. Take with meals. metoprolol tartrate (Lopressor) 50 MG tablet Take 50 mg by mouth 2 times daily. Take one tablet by mouth twice daily nitroglycerin (Nitrostat) 0.[address] 0.4 mg under the tongue every 5 minutes as needed for chest pain. sertraline (Zoloft) 50 MG tablet Take half tablet (25 mg) daily for 2 weeks then increase to 1 tablet (50 mg) daily thereafter 30 tablet 2 UltiCare Short Pen [place] 31G X 8 MM [facility] [place] No current facility-administered medications for this visit. Past Medical History: Diagnosis Date Alzheimer's dementia (HCC) diagnosed 07/2023 Diabetes mellitus (HCC) Disease of thyroid gland Heart disease Hyperlipemia Hypertension Pacemaker Toxic encephalopathy Urinary tract infection Social History Tobacco Use Smoking status: Never Smokeless tobacco: Never Substance Use Topics Alcohol use: Never Past Surgical History: Procedure Laterality Date CARDIAC CATHETERIZATION 2023 CARDIAC PACEMAKER PLACEMENT 11/19/2023 CHOLECYSTECTOMY CORONARY ANGIOPLASTY WITH STENT PLACEMENT 06/01/2023 HYSTERECTOMY Family History Problem Relation Name Age of Onset Hypertension Mother Kidney failure Mother Heart disease Mother No Known Problems Father Heart disease Brother Family Status Relation Name Status Mother (Not Specified) Father (Not Specified) Brother No partnership data on file Objective Vitals: 04/29/24 1103 BP: 111/64 BP Location: Left arm Patient Position: Sitting BP Cuff Size: Adult Pulse: 86 Weight: 154 lb 6.4 oz (70 kg) Wt Readings from Last 3 Encounters: 04/29/24 154 lb 6.4 oz (70 kg) 01/29/24 152 lb (68.9 kg) 07/31/23 149 lb 3.2 oz (67.7 kg) Physical Exam Constitutional: General: She is not in acute distress. Appearance: She is not ill-appearing. Comments: Elderly female. Pleasant and cooperative. Well kempt, well nourished. HENT: Head: Normocephalic. Comments: Wears glasses. No hearing aids. Right Ear: External ear normal. Left Ear: External ear normal. Cardiovascular: Rate and Rhythm: Normal rate and regular rhythm. Heart sounds: Murmur heard. Pulmonary: Effort: Pulmonary effort is normal. No respiratory distress. Breath sounds: Normal breath sounds. Abdominal: General: Abdomen is flat. Bowel sounds are normal. Palpations: Abdomen is soft. Tenderness: There is no abdominal tenderness. Musculoskeletal: General: Swelling (trace, sock lines BLE) present. Deformity: 1-2+ BLE. Comments: Muscle strength 4/5 BLE Skin: General: Skin is warm and dry. Neurological: Comments: Alert and oriented x 2 (to self and place, doesn't know year but knows month). Knows 911. Speech clear and appropriate. Follows commands. No tremors BUE. Psychiatric: Comments: Appropriate affect and behavior Data Reviewed and Summarized Testing: The following tests were performed at today's visit and scanned in to thechart: - No cognitive testing today, too soon to repeat; last testing done in 12/2023- [place] 13 (MIS 2), CDT 5 I spent total time of 22 minutes face to face with the patient and/or family discussing the diagnosis and importance of compliance with the treatment plan as well as documenting on the day of the visit. In addition, that total time includes the following: -Reviewing previous notes, -Reviewing previous cognitive tests, -Obtaining and/or reviewing separately obtained history, -Ordering prescription medications, tests and procedures, -Communicating results to the patient/family/caregiver, -Counseling/educating the patient/family/caregiver, -Documenting clinical information in the patients electronic record, -Coordination of care for the patient, and -Performing a medically appropriate exam and/or evaluation I, MAHAMED Sanchez CNP, furnish ongoing care related to Amalia Corral single, serious and complex condition Alzheimer's dementia. I assume responsibility for the patient's ongoing medical care of this condition. documented in this encounter [facility] 04-29-2024 Instructions MAHAMED Oliva CNP - 04/29/2024 11:00 AM EDT Mrs. Corral was seen today for memory. No memory testing today. Will repeat at next visit. Medications: - Continue donepezil (Aricept) 10 mg nightly as is. Refill sent to pharmacy today for when you need it next time. - For mood, start Sertraline. Take half tablet (25 mg) daily for 2 weeks, then increase to 1 tablet (50 mg) daily thereafter. Side effects include upset stomach and diarrhea. If you're having any problems with the medication, call me right away. Avoiding medications that cause confusion and falls - Tylenol PM, Benadryl Recommend physical, mental, and social activity - Ex [employer], Silver Sneakers. Recommend routines, schedules, and organization. Recommend getting adequate sleep and eating balanced diet. Continue regular visits with primary care provider to maintain chronic health conditions. 5 M s - supervision/assistance with medications, medical care, meals, money, mobility (falls). Follow-up visit in 3 months for medication check. documented in this encounter [facility] 04-29-2024 Instructions MAHAMED Oliva CNP - 04/29/2024 11:00 AM EDT Mrs. Corral was seen today for memory. No memory testing today. Will repeat at next visit. Medications: - Continue donepezil (Aricept) 10 mg nightly as is. Refill sent to pharmacy today for when you need it next time. - For mood, start Sertraline. Take half tablet (25 mg) daily for 2 weeks, then increase to 1 tablet (50 mg) daily thereafter. Side effects include upset stomach and diarrhea. If you're having any problems with the medication, call me right away. Avoiding medications that cause confusion and falls - Tylenol PM, Benadryl Recommend physical, mental, and social activity - Ex [employer], Silver Sneakers. Recommend routines, schedules, and organization. Recommend getting adequate sleep and eating balanced diet. Continue regular visits with primary care provider to maintain chronic health conditions. 5 M s - supervision/assistance with medications, medical care, meals, money, mobility (falls). Follow-up visit in 3 months for medication check. documented in this encounter [facility] 04-29-2024 Miscellaneous Notes Addended by: IVANNA REN on: 05/02/2024 09:03 AM Modules accepted: Level of Service documented in this encounter [facility] 04-29-2024 Note Addended by: IVANNA REN on: 05/02/2024 09:03 AM Modules accepted: Level of Service [facility] 04-29-2024 Note Addended by: IVANNA REN on: 05/02/2024 09:03 AM Modules accepted: Level of Service [facility] 01-29-2024 History of Present illness Narrative Review of Systems Constitutional: Negative for appetite change, fatigue, fever and unexpected weight change. HENT: Positive for dental problem. Negative for hearing loss and trouble swallowing. Eyes: Negative for visual disturbance. Respiratory: Positive for shortness of breath. Negative for cough. Cardiovascular: Negative for leg swelling. Gastrointestinal: Negative for constipation and diarrhea. Genitourinary: Negative for difficulty urinating and dysuria. Musculoskeletal: Positive for arthralgias, back pain and gait problem. Neurological: Positive for weakness. Negative for tremors and speech difficulty. Psychiatric/Behavioral: Positive for agitation and confusion. Negative for dysphoric mood, hallucinations and sleep disturbance. The patient is nervous/anxious. Images from the original note were not included. [facility] [address] [facility] [address] Dept: [phone] Dept Loc: [phone] Visit type: [facility] Follow Up Visit Reason for Visit: Memory Loss Visit Date: 01/29/2024 Assessment and Plan 1. Moderate late onset Alzheimer's dementia without behavioral disturbance, psychotic disturbance, mood disturbance, or anxiety (HCC) - donepezil (Aricept) 5 MG tablet; Take 1 tablet (5 mg) by mouth Nightly., Starting Sun01/29/2024, Normal - donepezil (Aricept) 10 MG tablet; Take 1 tablet (10 mg) by mouth Nightly. Start after completing starter dose, Starting Sun01/29/2024, Normal - Cognitive testing down 2 points - Still moderate stage - Pt is more physically active since ablation/pacemaker placement - Start donepezil to help slow down memory loss, instructions provided today and to call if having trouble with the medicine - Continue non-pharmacologic interventions for memory - Has adequate level of supervision at this time-- dtr providing - F/u in 3 months for medication check Follow up in about 3 months (around 04/29/2024) for medicaiton check. Subjective HPI: Amalia Corral is a 73 y.o. female who presents to the [facility] for a follow-up visit. The patient is known to me. Initially seen in 03/2023 for memory loss x 6 months-1 year, [place] 15 (MIS 3), CDT 5. FSC in 07/2023- diagnosed with early moderate Alzheimer's disease, plan to start Donepezil after ablation completed. History obtained from caregiver(s): Pt is here with her daughter Rick. Memory- Slow, gradual decline in short term memory over the past several months since last visit in 07/2023. Seemed that pt had noticeable declines after recent medical procedures. Reverting more to the past, pt's childhood. Function- More physically active since having the pacemaker placed. Cleaning more around the house. Still needing reminders for personal care, removing dentures. Dtr is administering medications. Safety issues- Hasn't driven since coming here from [place]. Gets easily startled. Can't find the car once they get out of the store when with daughter. Pt has asked about driving but not often. No recent falls. Using her cane. No kitchen safety issues. Pt helps dtr cook. Has put pop tart in microwave for too long once. Dtr has started turning off the microwave when she's gone. No wandering outside the home. Mood- More easily aggravated with care at times. Appetite- Was poor but has come back. Sleep- Good. Pt had ablation and was put into complete heart block, heart stents and pacemaker placed. Dtr wanted us to be aware. History obtained from patient: Not having any pain. Doing well overall. Mood- good. Appetite- good, "too good" sometimes. Sleep- no issues. Reviewed progress notes completed by ANMOL (KARINE) and social work. Allergies Allergen Reactions Losartan Rash Marco Inhibitors Cough Current Outpatient Medications Medication Sig Dispense Refill apixaban (Eliquis) 5 MG tablet Take 5 mg by mouth 2 times daily. Take one tablet by mouth twice daily clopidogrel (Plavix) 75 MG tablet Take 75 mg by mouth daily. cyanocobalamin (Vitamin B-12) 1000 MCG tablet Take 1,000 mcg by mouth daily. Take one tablet by mouth daily dilTIAZem CD (Cardizem CD) 120 MG 24 hr capsule Take 120 mg by mouth in the morning and 120 mg in the evening. donepezil (Aricept) 10 MG tablet Take 1 tablet (10 mg) by mouth Nightly. Start after completing starter dose 30 tablet 2 donepezil (Aricept) 5 MG tablet Take 1 tablet (5 mg) by mouth Nightly. 30 tablet 0 furosemide (Lasix) 20 MG tablet Take 40 mg by mouth daily. insulin detemir (Levemir) 100 UNIT/ML injection Inject 8 Units under the skin Nightly. levothyroxine (Synthroid, Levoxyl) 25 MCG tablet Take 25 mcg by mouth every morning (before breakfast). Take one tablet by mouth daily metFORMIN (Glucophage) 500 MG tablet Take 1,000 mg by mouth in the morning and 1,000 mg in the evening. Take with meals. metoprolol tartrate (Lopressor) 50 MG tablet Take 50 mg by mouth 2 times daily. Take one tablet by mouth twice daily nitroglycerin (Nitrostat) 0.[address] 0.4 mg under the tongue every 5 minutes as needed for chest pain. UltiCare Short Pen [place] 31G X 8 MM [facility] [place] No current facility-administered medications for this visit. Past Medical History: Diagnosis Date Alzheimer's dementia (HCC) diagnosed 07/2023 Diabetes mellitus (HCC) Disease of thyroid gland Heart disease Hyperlipemia Hypertension Toxic encephalopathy Urinary tract infection Social History Tobacco Use Smoking status: Never Smokeless tobacco: Never Substance Use Topics Alcohol use: Never Past Surgical History: Procedure Laterality Date CARDIAC CATHETERIZATION 2023 CARDIAC PACEMAKER PLACEMENT 11/19/2023 CHOLECYSTECTOMY CORONARY ANGIOPLASTY WITH STENT PLACEMENT 06/01/2023 HYSTERECTOMY Family History Problem Relation Name Age of Onset Hypertension Mother Kidney failure Mother Heart disease Mother No Known Problems Father Heart disease Brother Family Status Relation Name Status Mother (Not Specified) Father (Not Specified) Brother Objective Vitals: 01/29/24 1340 BP: 115/68 BP Location: Left arm Patient Position: Sitting BP Cuff Size: Adult Weight: 152 lb (68.9 kg) Wt Readings from Last 3 Encounters: 01/29/24 152 lb (68.9 kg) 07/31/23 149 lb 3.2 oz (67.7 kg) 04/24/23 161 lb 3.2 oz (73.1 kg) Physical Exam Constitutional: General: She is not in acute distress. Appearance: She is not ill-appearing. Comments: Elderly female. Pleasant and cooperative. Well kempt, well nourished. HENT: Head: Normocephalic. Comments: Wears glasses. No hearing aids. Right Ear: External ear normal. Left Ear: External ear normal. Cardiovascular: Rate and Rhythm: Normal rate and regular rhythm. Heart sounds: Murmur heard. Pulmonary: Effort: Pulmonary effort is normal. No respiratory distress. Breath sounds: Normal breath sounds. Abdominal: General: Abdomen is flat. Bowel sounds are normal. Palpations: Abdomen is soft. Tenderness: There is no abdominal tenderness. Musculoskeletal: General: Swelling (BLE) present. Deformity: 1-2+ BLE. Comments: Muscle strength 4/5 BLE Skin: General: Skin is warm and dry. Neurological: Comments: Alert and oriented x 2 (to self and place). Knows 911. Speech clear and appropriate. Follows commands. No tremors BUE. Psychiatric: Comments: Appropriate affect and behavior. Data Reviewed and Summarized Testing: The following tests were performed at today's visit and scanned in to thechart: MoCA score: 13, MIS score: 2 Clock drawing score: 5 PHQ-9 score: 0 KAITLYNN score: not done I independently reviewed the Reji Cognitive Assessment from 01/29/2024. Test scanned in to the chart. I spent total time of 45 minutes face to face with the patient and/or family discussing the diagnosis and importance of compliance with the treatment plan as well as documenting on the day of the visit. In addition, that total time includes the following: -Reviewing previous notes, -Reviewing previous cognitive tests, -Obtaining and/or reviewing separately obtained history, -Ordering prescription medications, tests and procedures, -Communicating results to the patient/family/caregiver, -Counseling/educating the patient/family/caregiver, -Documenting clinical information in the patients electronic record, -Coordination of care for the patient, and -Performing a medically appropriate exam and/or evaluation Senior Services/Geriatrics Social History Present at visit: patient, fazal Cabrera Marital status: Children: 3 children (1 local) Living arrangement: patient and spouse lives with mode Cabrera >>01/29/24 same Household safety problems: none >>01/29/24 burned pop-tart in microwave Concerning Behaviors: Hallucinations during hospital stay/UTI >>01/29/24 none Wandering potential: No >>01/29/24 no Pets: No Guns in the home: None Elder abuse: No/Denied Concerns >>01/29/24 no Alcohol/Tobacco/Marijuana/Drug Use History: none service: Spouse was a [place] ([place]) Highest level of education: 11th grade 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 Activities: exercise video 30 min/day, prep food for meals, journaling, cleaning, friends/family visting, talks on phone daily with friends >>01/29/24 cleaning, gets together with friends, goes to [employer] to shop Exercise: exercise 30 min/day Finances: has savings, over $2000, SS income $1900 Healthcare Power of Marketing Strategy Manager: Yes: mode Cabrera Financial Power of Marketing Strategy Manager: Yes: mode Cabrera Living Will: Yes Guardian: No Code Status: Full Code Primary Caregiver: mode Cabrera Current care plan/supervision: >>01/29/24 daughter with them most of the time, has someone stay if going to be gone, can leave a few hours Community resources: None >>01/29/24 video monitoring Caregiver stressors: some caregiver stress due to medical needs of both patient and spouse >>01/29/24 daughter denies too much stress Goals for care: evaluate memory, keep patient at home with daughter As a Caregiver, What Matters Most to You: Increase understanding of community resources >>04/24/23 Patient and had been living in [place] with another one of their children. Has moved here 5 weeks ago. Getting lost driving. Daughter Rick noticed that patient is having memory issues and having confusion. Had a hospitalization due to low heart rate, very confused in the hospital. Rick is having some stress due to caregiving for both patient and patient's spouse- both having much medical issues. >>01/29/24 Patient having some slight decline on memory test today. Daughter continues to be main caregiver for patient and spouse. Daughter denies too much caregiver stress. Daughter is considering taking patient and spouse to Adult Day Program to get them engaged in activities. SW gave some tips on how to approach that- encouraged her to try in order to give her some respite. No resources given today. Functional Status (I: Independent, A: Assisted, D: Dependent) ADLs I A D Notes Bathing [] [x] [] Needs reminders/cuing, shower set up. >>01/29/24 same Dressing [] [x] [] Would wear the same clothes if not cued >>01/29/24 will put clean clothes in laundry, daughter cues her to change clothes Toileting [] [x] [] No issues >>01/29/24 puts too much toilet paper in toilet, clogging toilet, goes through 3 rolls in 2 days Transfers [x] [] [] No issues >>01/29/24 with some difficulty Feeding [] [x] [] No issues >>01/29/24 unable to cut meat anymore Ambulation [] [] [] Has a walker, not always using it Assistive devices: Cane, Raised toilet seat, Shower chair, and Walker IADLs I A D Telephone [] [x] [] Has a cell phone that she shares with spouse, can call and answer, sometimes needs some help using the phone, daughter sets up own appointments, needs reminders, was missing appointments >>01/29/24 same Transportation [] [] [x] Driving safety concerns: Not currently driving, was driving until she came here, daughter keeping keys until she knows if she can drive or not >>01/29/24 no driving Shopping [] [x] [] Patient goes with daughter, could follow a list in the store, daughter assists >>01/29/24 daughter keeps patient on task Meal prep [] [x] [] Does help with meal prep with daughter's cuing, not using oven/stove top, can use microwave- always just presses 1 on the microwave >>01/29/24 no longer using oven or microwave, does help some with meal prep Housework [] [x] [] Cleaning unprompted, may do it more than once >>01/29/24 not always rinsing dishes, they may have soap still on them Medications [] [] [x] Daughter administers medications, was having a lot of trouble with them >>01/29/24 same Finances [] [x] [] Daughter assists with paying bills, not on account >>01/29/24 daughter does sit with patient to do bills , now on account documented in this encounter [facility] 01-29-2024 Instructions Ivanna Ren APRN - LUMBER TYING MACHINE OPERATOR - 01/29/2024 1:45 PM EDT Mr. Corral was seen today for memory. Memory testing today was down 2 points compared to last visit. Moderate stage, can be stable for long periods of time. Medications: -- Start Donepezil to help slow down memory loss. Take 5 mg nightly for 1 month, then start new prescription of 10 mg nightly thereafter. Monitor for GI symptoms that are severe or last more than a week (nausea, vomiting, abd pain, diarrhea, decreased appetite, weight loss) or dizziness of lightheadedness (can make pulse go lower) or bad dreams. Call or message our office anytime if you are having problems with the medication. Avoiding medications that cause confusion and falls - Tylenol PM, Benadryl Recommend physical, mental, and social activity - [facility]. Recommend routines, schedules, and organization. Recommend getting adequate sleep and eating balanced diet. Continue regular visits with primary care provider to maintain chronic health conditions. 5 M s - supervision/assistance with medications, medical care, meals, money, mobility (falls). Follow-up visit in 3 months for medication check. documented in this encounter [facility] 01-23-2024 Telephone encounter Note Noted. Will discuss more when we separate at appointment. [facility] 01-23-2024 Miscellaneous Notes Noted. Will discuss more when we separate at appointment. Name of caller: Rick Contact phone number: [phone] Relationship to Patient: family member patient and daughter Provider: Ivanna Ren Practice: [facility] Chief Complaint/Reason for Call: Rick informing Ivanna Ren patient recently had heart stents and a pace maker put in at [facility]. Rick just wanted to inform before appointment and states patient gets a little aggravated when Rick goes into detail about it. Best time of day caller can be reached:any Patient advised that office/PCP has 24-48 business hours to return their call: N/A documented in this encounter [facility] 01-23-2024 Telephone encounter Note Name of caller: Rick Contact phone number: [phone] Relationship to Patient: family member patient and daughter Provider: Ivanna Ren Practice: [facility] Chief Complaint/Reason for Call: Rick informing Ivanna Ren patient recently had heart stents and a pace maker put in at [facility]. Rick just wanted to inform before appointment and states patient gets a little aggravated when Rick goes into detail about it. Best time of day caller can be reached:any Patient advised that office/PCP has 24-48 business hours to return their call: N/A [facility] 01-07-2024 Instructions Liza Ortiz MD - 01/07/2024 11:54 AM EDT We will repeat fasting blood work in 3-4 months documented in this encounter [facility] 01-07-2024 History of Present illness Narrative Images from the original note were not included. [facility]Y Cardiology ([facility] [address]) [address] [facility] [id number] OUTPATIENT VISIT DATE 01/07/2024 PRIMARY CARE PHYSICIAN: Rajat Patel (Jung) [address] [place] [address] HISTORY OF PRESENT ILLNESS: Ms. Corral is a 73 year old pleasant woman with a history of coronary artery disease with complex intervention of the LAD and RCA in June 2023, mitral valve regurgitation, paroxysmal atrial fibrillation, history of AV node ablation with pacemaker placement, hypertension, dyslipidemia who is here today for routine follow-up. Patient and her daughter report that her functional capacity is markedly improved after AV node ablation and pacemaker placement. She has been back to her usual functional capacity. She has not had symptoms of chest pain or pressure. She denies palpitations, lightheadedness, dizziness, or syncope. She has not had symptoms concerning for congestive heart failure including PND, orthopnea, lower extremity edema PAST CARDIAC HISTORY: Amalia Corral is a very pleasant 72 year old female who presents for hospital follow up. She has a PMhx of CAD (status post RYAN to LAD and RCA 06/01/2023), mitral valve regurgitation, hypertension, hyperlipidemia, PAF, DM2. She plans to establish as a patient of Dr. Ortiz. She prefers to follow up at our [place] location. Today, her daughter accompanies her for her office visit. She states she has been doing well since she was discharged from the hospital. She has been attending cardiac rehab but requires clearance to return due to an episode of A-fib RVR. She feels occasional palpitations. She, otherwise, denies chest discomfort, shortness of breath, dizziness, orthopnea, LE swelling. She requires a rolling walker to ambulate long distances. We reviewed her hospitalization. We reviewed cardiac risk factors modifications. She reports taking medication as prescribed. Refills were sent to her pharmacy. PAST MEDICAL HISTORY Diagnosis Date Acute rheumatic heart disease, unspecified Aortic valve insufficiency Atrial fibrillation (HCC) Diabetes mellitus type 2 in obese 03/2012 Heart disease, rheumatic History of PTCA 06/01/2023 LAD & RCA Hyperlipemia Hypertension Hypothyroid Mitral valve regurgitation Osteopenia Pulmonary hypertension (HCC) Unspecified vitamin D deficiency 10/15/2008 Vit D level 10/09: 15.7, started weekly Vitamin D. PAST SURGICAL HISTORY Procedure Laterality Date AV YESSICA ABLATION 11/19/2023 With Micra implant; Dr. Strong at [facility] CARDIOVERSION x2 CHOLECYSTECTOMY 10/01/1982 Cholecystectomy MICRA AV LEADLESS PACEMAKER 11/19/2023 With AVN catheter ablation; Dr. Strong at [facility] PERCUTANEOUS CORONARY INTERVENTION 06/01/2023 LAD & RCA TOTAL ABDOMINAL HYSTERECT W/WO RMVL TUBE OVARY 10/01/1975 Hysterectomy, ALY SOCIAL HISTORY Social History Tobacco Use Smoking status: Former Packs/day: 1.50 Years: 15.00 Additional pack years: 0.00 Total pack years: 22.50 Types: Cigarettes Quit date: 10/01/1989 Years since quittin.2 Smokeless tobacco: Never Substance Use Topics Alcohol use: Yes Comment: rarely Drug use: No FAMILY HISTORY Problem Relation Age of Onset None Father unknown health Stroke Mother POLYCYSTIC KIDNEY DISEASE,HEART DISEASE ,HYPERTENSION Hypertension Mother Heart Mother ? None Maternal Grandfather black lung other (polycystic kidney disease) Brother Breast Cancer Maternal Aunt Cancer Maternal Aunt leukemia Heart Brother AF None Sister Ischemic Heart Disease Brother [place] 66 ALLERGIES: ALLERGIES Allergen Reactions Marco Inhibitors Cough Losartan Potassium Rash At higher doses (ok at low dose) MEDICATIONS: metoprolol succinate ER (TOPROL XL) 50 mg 24 hr tablet Take 50 mg by mouth two times a day. pravastatin (PRAVACHOL) 20 mg tablet clopidogrel (PLAVIX) 75 mg tablet Take 1 tablet by mouth once daily. metFORMIN (GLUCOPHAGE) 500 mg tablet Take 1,000 mg by mouth twice daily with meals. cyanocobalamin (VITAMIN B-12) 1,000 mcg tab Take 1,000 mcg by mouth once daily. furosemide (LASIX) 20 mg tablet Take 20 mg by mouth once daily. Levothyroxine 25 mcg cap Take 25 mcg by mouth once daily. insulin detemir (LEVEMIR) 100 unit/mL injection Inject 8 Units subcutaneously once daily. In the morning apixaban (ELIQUIS) 5 mg tab tab(s) Take 1 tablet by mouth twice daily. nitroglycerin sublingual (NITROQUICK) 0.4 mg SL tablet Dissolve 1 tablet under the tongue every 5 minutes as needed for chest pain. REVIEW OF SYSTEMS: Review of Systems Constitutional: Negative for chills, fever, malaise/fatigue and weight loss. HENT: Negative for hearing loss and sore throat. Eyes: Negative for blurred vision and double vision. Respiratory: Negative. Cardiovascular: Negative. Genitourinary: Negative for dysuria, frequency, hematuria and urgency. Musculoskeletal: Negative. Skin: Negative. Neurological: Negative for dizziness, seizures, loss of consciousness, weakness and headaches. Endo/Heme/Allergies: Negative for environmental allergies. Does not bruise/bleed easily. Psychiatric/Behavioral: Negative for depression. PHYSICAL EXAMINATION: BP 113/65 Pulse 75 Wt 149 lb (67.6kg) SpO2 98% General: Pleasant woman sitting appears comfortable no apparent distress HEENT: Carotid upstrokes are brisk without bruits no JVD appreciated. Pulmonary: Lungs are clear no rales, wheezes, rhonchi Cardiovascular: Normal S1, S2 with regular rate and rhythm Extremities: Warm, well-perfused, no lower extremity edema. CARDIOVASCULAR MEDICINE TESTING: Cardiac catheterization 11/09/2023: Post- Procedure Diagnosis: Patent stents in the proximal LAD and distal right coronary artery. Otherwise coronary angiography unchanged from prior study. Hemodynamics: LVEDP: 3 mmHg LV - AORTA: No gradient. Coronary Angiography: Left Main: Large-caliber vessel. The ostial vessel has an eccentric 40% stenosis and unchanged from prior catheterization Left Anterior Descending: Large-caliber vessel. The ostial to proximal vessel has mild diffuse disease. There is a patent stent in the proximal vessel. The mid vessel has moderate to severe diffuse disease with 60 to 70% luminal narrowing. The distal and apical portion of the LAD is very small with mild diffuse disease. There is a moderate caliber first diagonal branch which has mild diffuse disease. Circumflex: Moderate caliber nondominant vessel. The ostial proximal vessel has an eccentric 60% stenosis. There is a large first obtuse marginal branch with mild diffuse disease. Right Coronary Artery: Large-caliber dominant vessel. The proximal vessel has an eccentric 50% stenosis. The distal vessel has minimal disease. There is a patent stent in the posterior ventricular branch. Cardiac catheterization/PCI 06/01/2023: Post- Procedure Diagnosis: The eccentric calcified ostial left main stenosis without significant luminal narrowing on IVUS evaluation, severe proximal LAD lesion with moderate to severe calcification treated with balloon angioplasty and drug-eluting stent placement. Severe distal right coronary artery lesion in the posterior ventricular branch treated with balloon angioplasty and drug-eluting stent placement Coronary Angiography/PCI: Left Main: Large caliber vessel. The ostium of the vessel has an eccentric calcified plaque resulting in no more than 20 to 30% luminal narrowing of the vessel. Intravascular ultrasound demonstrates a minimal luminal area far greater than 6 mm . Left Anterior Descending: Moderate caliber vessel. The proximal vessel has severe calcified 99% stenosis with JOSE DANIEL I flow. The lesion was treated with sequential balloon inflations and placement of a 2.75 x 22 mm Vesper stent. The stent was postdilated to 3.0 mm with a good angiographic result. Intravascular ultrasound was employed for vessel sizing and complexity of disease Circumflex: Moderate caliber vessel with mild diffuse disease Right Coronary Artery: Large-caliber dominant vessel. The distal vessel has a an eccentric 90% stenosis into a large posterior ventricular branch. Lesion was treated with balloon angioplasty and placement of a 2.75 x 22 mm Vesper stent postdilated to 3 mm with a good angiographic result. Transesophageal echocardiogram 05/30/2023: - Exam indication: Initial evaluation valvular heart disease - The left ventricle is normal in size. Left ventricular systolic function is normal. EF = 55 5% (visual est.) - The right ventricle is normal in size. - The left atrial cavity is severely dilated. LA severely enlarged;. - The right atrial cavity is mildly dilated. - There is moderate (2+) mitral valve regurgitation due to restricted leaflet motion. Probable rheumatic mitral valve with shortened chordae and anteriorly leaflet thickening and predominantly fixed posterior leaflet; little or no MS: overall moderate MR; no reflux into pulm veins. - 1-2+ AR; 2 separate jets;. - There is no patent foramen ovale as detected by Doppler and agitated saline contrast. Arch and desc aorta normal in caliber with mild atheromatous disease - The patient has not had a prior CC echocardiographic exam for comparison. ZIO monitor 08/06 - 08/13/2023: Atrial Fibrillation occurred continuously (100% burden), ranging from 45- 190 bpm (avg of 106 bpm). Isolated VEs were rare (<1.0%), VE Couplets were rare (<1.0%), and no VE Triplets were present. MD notification criteria for Rapid Atrial Fibrillation met - report posted prior to leaving voicemail per account request (AB). Pacemaker interrogation 12/31/2023: PPM check, single lead system with programming. (Micra)ID x2. Here for routine 6 week PM evaluation. Offers no complaints. Daughter states patient is able to do much more since PM. To decrease LRL to 70 BPM today. Presenting rhythm RV pacing at 80 BP has not M. Takes Eliquis BID and Plavix QD. Estimated battery longevity is 10 more years. Lead impedances and pacing thresholds stable. Unable to check vent sensing d/t lack of R waves w/ rate decreased. LRL decreased to 70 BPM per order I have personally reviewed the Electrocardiogram, Echocardiogram, Cardiac Catheterization/Percutaneous Coronary Intervention (PCI), and Device Check. IMPRESSION: Ms. Corral is a 73 year old woman with a history of coronary artery disease who initially was referred for coronary bypass grafting and mitral valve repair. After heart team discussion she was referred for percutaneous coronary intervention which was completed in June 2023. She has a history of permanent atrial fibrillation and due to difficulties with heart rate management she underwent AV node ablation and pacemaker placement. She also has a history of hypertension and dyslipidemia. She presents the office for routine follow-up PLAN AND RECOMMENDATIONS: 1. Coronary artery disease 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 - ICD9: 414.01, ICD10: I25.10 (primary diagnosis) Patient doing well without symptoms concerning for angina. Continue current medical therapy and risk factor modification. Plan to continue Plavix until later this year. - COMP METABOLIC PANEL - CBC 2. Rheumatic mitral valve disease - ICD9: 394.9, ICD10: I05.9 3. Rheumatic aortic valve insufficiency - ICD9: 395.1, ICD10: I06.1 4. Permanent atrial fibrillation (HCC) - ICD9: 427.31, ICD10: I48.21 Patient is on Eliquis for stroke risk reduction 5. H/O atrioventricular yessica ablation - ICD9: V15.1, ICD10: Z98.890 6. Pulmonary HTN (HCC) - ICD9: 416.8, ICD10: I27.20 7. Essential hypertension - ICD9: 401.9, ICD10: I10 Well-controlled on current regimen 8. Mixed hyperlipidemia - ICD9: 272.2, ICD10: E78.2 Maintained on pravastatin 20 mg daily. Repeat fasting lipid panel and LFTs - COMP METABOLIC PANEL - LIPID PANEL BASIC Liza Ortiz MD documented in this encounter [facility] 12-06-2023 Telephone encounter Note error [facility] 12-06-2023 Miscellaneous Notes error documented in this encounter [facility] 11-20-2023 Miscellaneous Notes Follow up(s) scheduled. Patient to be notified upon discharge. Amanda Barnes Please arrange annual follow up with Dr. Strong or [facility]. Patient underwent implantation of Micra followed by AV yessica catheter ablation with Dr. Strong 11/19/2023. She is being discharged today. Thank you. Do Rodriguez APRN.LUMBER TYING MACHINE OPERATOR documented in this encounter [facility] 11-06-2023 Miscellaneous Notes Call placed to pt. Spoke with Daughter Aric. Results and recommendations reviewed with pt per Zulema Tucker CNP. Pt verbalized understanding to decrease the lasix to 20 mg daily. She reports pt has been SOB and fatigues easily with exertion. Pt has no questions at this time. Chang Ford LPN ----- Message from Randi Villa APRN.LUMBER TYING MACHINE OPERATOR sent at 11/06/2023 9:31 AM EST ----- Please call patient and notify her of lab results. Creatinine has increased. It looks like Moni had ask patient to increase to 40 mg of Lasix on mychart. I recommend she return to 20 mg of Lasix given elevated creatinine. CBC is stable. BNP is stable. We will repeat her lab work morning of heart catheterization to ensure creatinine has down trended with decreasing diuretic therapy and that it is safe for her to receive contrast with heart cath. Thank you documented in this encounter [facility] 08-31-2023 Miscellaneous Notes Scheduled. Left message with appt date & time. Amanda Barnes Spoke with mode Chandra. Notified of test results and Randi's recommendations. She is agreeable to visit. Marcy العلي, RN ----- Message from Randi Villa APRN.LUMBER TYING MACHINE OPERATOR sent at 08/27/2023 1:16 PM EST ----- Please call patient and notify her of monitor results. Monitor reveals 100% burden of A-fib with wide range of heart rates from 45 bpm to 190 bpm. I recommend she see EP for further management. She was seen by Dr. Strong in the hospital I will refer her for office visit with him for further management. Thank you! documented in this encounter [facility] 08-06-2023 History of Present illness Narrative EVENT MONITOR DISPOSABLE PATCH INSTRUCTIONS Patient Name: Amalia Corral [facility] Number: [id number] Skin prepped and cleansed with alcohol Patch secured to prepped area Monitor Activated Serial #: [id number] Patient Instructed: Prescribed order timeframe Bathing guidelines Usage of event button and diary documentation Return of monitor at the end of prescribed order Call with problems [phone] or [phone] ext. [phone] Patient expresses a good understanding of instructions Ciera Bennett MA documented in this encounter [facility] 07-31-2023 History of Present illness Narrative Interval history since last appointment: Any visits to primary care provider? Yes Any visits to the emergency department/hospital? Yes Any medication changes? Yes Any falls? No Family present: patient, daughter Rick Educational Materials reviewed/provided at visit: Memory/Cognitive Ability Next Steps After an Alzheimer's Diagnosis 10 Tips to Keeping Independent Memory Tips (moderate to severe) 5Ms Dealing with Dementia Stages for Memory Loss 10 Ways to Love Your Brain Exercise/Activities Dementia exercise tips Activities/Reminiscence guide Communication/Behaviors Communication - All Stages Communication Tips Redirecting Confabulation Therapeutic Fibbing Caregiver Stress Coping Techniques for Caregiver Stress Adult Day Program list Video monitoring [facility] (gave at initial visit) [facility] Aid and Attendance Info Star's Service Commission Diet Healthy Nutrition for Older Adults - [facility] Injury Prevention/Home Safety [facility] Home Safety Checklist Medications Medication Safety/Dispensers Sleep Getting a Good Night's Sleep ([facility]) Sleep Hygiene Personal Care Personal Care Tips Bathing Tips Dressing Tips Images from the original note were not included. [facility] [address] [place] [address] Dept: [phone] Dept Loc: [phone] Visit type: [facility] Family Summary Conference Reason for Visit: Memory Loss Visit Date: 07/31/2023 Assessment and Plan 1. Moderate late onset Alzheimer's dementia without behavioral disturbance, psychotic disturbance, mood disturbance, or anxiety (HCC) We reviewed the diagnosis of early moderate stage Alzheimer's Dementia, course, prognosis and treatment. Discussed the option of medication. Opted to start nothing at this time. Pt is having issues with heart rate, s/p cardiac stents. Plan for ablation is still pending. Asked that daughter call me once plan is finalized and then can consider starting donepezil. She is agreeable. Reviewed management of the following behavioral symptoms: agitation, anxiety, depression, indifference/social withdrawal, and poor insight into own memory loss/functional deficits Discussed safety management: increased supervision Reviewed the importance of caregiver stress and support through following means: Alzheimer's Association support and Adult Day Program Reviewed advanced care plan. Already has POAs completed Educational information and handouts on the above was provided to the caregiver. Pt is not currently driving, more due to cardiac issues. Advised daughter to call me once pt is cleared to drive by Cardiology and can discuss next step. CDT 5 out 7 on initial testing. B12 and folate levels ordered to complete work-up. Never received results. Will request from PCP office where pt had them drawn. Follow up in about 6 months (around 01/29/2024). Subjective Amalia Corral is a 72 y.o. female who returns today for a Family Summary Conference to review the care plan based on the comprehensive geriatric assessment completed at the last appointment. Initially seen 03/2023 for memory loss x 6 months-1 year, [place] 15 (MIS 3), CDT 5, labs and head imaging requested from [facility] from recent admission, concern for early moderate Alzheimer's disease. Patient update: Pt is here with her daughter Rick. 2 ER visits- 1 resulting in hospitalization for cardiac stents. Had cardiac stents placed on 06/01/23. Medications changed- updated today. No interval falls. Has seen PCP. Allergies Allergen Reactions Losartan Rash Marco Inhibitors Cough Current Outpatient Medications Medication Sig Dispense Refill apixaban (Eliquis) 5 MG tablet Take 5 mg by mouth 2 times daily. Take one tablet by mouth twice daily clopidogrel (Plavix) 75 MG tablet Take 75 mg by mouth daily. cyanocobalamin (Vitamin B-12) 1000 MCG tablet Take 1,000 mcg by mouth daily. Take one tablet by mouth daily dilTIAZem CD (Cardizem CD) 120 MG 24 hr capsule Take 120 mg by mouth in the morning and 120 mg in the evening. furosemide (Lasix) 20 MG tablet Take 40 mg by mouth daily. insulin detemir (Levemir) 100 UNIT/ML injection Inject 8 Units under the skin Nightly. levothyroxine (Synthroid, Levoxyl) 25 MCG tablet Take 25 mcg by mouth every morning (before breakfast). Take one tablet by mouth daily metFORMIN (Glucophage) 500 MG tablet Take 1,000 mg by mouth in the morning and 1,000 mg in the evening. Take with meals. metoprolol tartrate (Lopressor) 50 MG tablet Take 50 mg by mouth 2 times daily. Take one tablet by mouth twice daily nitroglycerin (Nitrostat) 0.[address] 0.4 mg under the tongue every 5 minutes as needed for chest pain. UltiCare Short Pen [place] 31G X 8 MM [facility] [place] current facility-administered medications for this visit. Past Medical History: Diagnosis Date Alzheimer's dementia (HCC) diagnosed 07/2023 Diabetes mellitus (HCC) Disease of thyroid gland Heart disease Hyperlipemia Hypertension Toxic encephalopathy Urinary tract infection Social History Tobacco Use Smoking status: Never Smokeless tobacco: Never Substance Use Topics Alcohol use: Never Past Surgical History: Procedure Laterality Date CHOLECYSTECTOMY CORONARY ANGIOPLASTY WITH STENT PLACEMENT 06/01/2023 HYSTERECTOMY Family History Problem Relation Name Age of Onset Hypertension Mother Kidney failure Mother Heart disease Mother No Known Problems Father Heart disease Brother Family Status Relation Name Status Mother (Not Specified) Father (Not Specified) Brother Objective Wt Readings from Last 3 Encounters: 07/31/23 149 lb 3.2 oz (67.7 kg) 04/24/23 161 lb 3.2 oz (73.1 kg) No physical exam performed Discussion only Data Reviewed and Summarized Problems and recommendations from initial assessment reviewed, Medications reviewed, Recent laboratory tests reviewed, and Recent diagnostic imaging reviewed Labs: No results found for: "WBC", "HGB", "HCT", "MCV", "PLT" No results found for: "NA", "K", "CL", "CO2", "BUN", "CREATININE", "GLUCOSE", "CALCIUM", "PROT", "BILITOT", "ALKPHOS", "AST", "ALT", "LABGLOM", "AGRATIO", GLOB No results found for: "TSH" No results found for: "FOLATE" No results found for: "[id number]" No results found for: "RPR" Imaging: Brain MRI reviewed Testing: I reviewed the Reji CognitiveAssessment from the initial assessment with the patient and family. Total score was 15 out of 30. I spent total time of 32 minutes face to face with the patient and/or family discussing the diagnosis and importance of compliance with the treatment plan as well as documenting on the day of the visit. In addition, that total time includes the following: -Reviewing previous notes, -Reviewing labs, -Reviewing previous cognitive tests, -Obtaining and/or reviewing separately obtained history, -Ordering prescription medications, tests and procedures, -Communicating results to the patient/family/caregiver, -Counseling/educating the patient/family/caregiver, -Documenting clinical information in the patients electronic record, and -Coordination of care for the patient documented in this encounter [facility] 07-31-2023 Instructions MAHAMED Oliva CNP - 07/31/2023 10:45 AM EDT Mrs. Corral was seen today for memory. Today you were diagnosed with early moderate Alzheimer's disease. For now, let's hold off on starting donepezil (Aricept) to slow down memory loss until you know what is going on with your heart. Call me once a decision has been made about your heart/potential procedures. Let me know if the circuit breaker mechanic clears you for driving. Then we can talk about next steps for returning to driving. Avoiding medications that cause confusion and falls - Tylenol PM, Benadryl Recommend physical, mental, and social activity - [facility], Silver Sneakers. Recommend routines, schedules, and organization. Recommend getting adequate sleep and eating balanced diet. Continue regular visits with primary care provider to maintain chronic health conditions. 5 M s - assistance with medications, medical care, meals, money, mobility (driving, falls). Follow-up visit in 6 months for repeat memory testing/routine visit. documented in this encounter [facility] 07-06-2023 Miscellaneous Notes Attempts x2 to reach patient's daughter Aric to schedule appointment. Will attempt again at later time. Daughter aware of need for 6 month follow up. Zio order states homecard. Pauline Guillen RN Can you please call the patient and have Zio patch placed for 1 week. Can you also arrange a 6-month follow-up with Dr. Ortiz. Thank you! Randi Villa APRN.CNP documented in this encounter [facility] 07-06-2023 Instructions Randi Villa APRN.CNP - 07/06/2023 11:26 AM EDT Images from the original note were not included. CORONARY ARTERY DISEASE View image View image WHAT IS CORONARY ARTERY DISEASE? Coronary artery disease (CAD) is a type of heart disease caused by a problem with the blood vessels that bring blood and oxygen to the heart muscle. These arteries are called the coronary arteries. This disease increases your risk for heart attack and sudden . WHAT IS THE CAUSE? Fatty deposits called plaque may build up in blood vessels and make them narrower. The narrowing decreases the amount of blood flow to the heart. Plaque also increases the chance that blood clots may form and block a blood vessel, which can cause a heart attack or stroke. Your risk for CAD may be higher if you: Have a family history of coronary artery disease at an early age Smoke Have high blood pressure Have diabetes Are very overweight Don t get enough exercise Have high levels of blood fat--for example, high cholesterol WHAT ARE THE SYMPTOMS? Coronary artery disease may not cause any symptoms. When there are symptoms, the most common one is chest pain, called angina. You may feel: A feeling of tightness or heaviness in the chest Squeezing, pressure, or burning in the chest Angina symptoms usually: Last for 5 minutes or less and go away with rest or medicine such as nitroglycerin. Happen when the heart has to work harder, such as after a heavy meal or during physical activity or emotional stress. Angina may also happen when you are resting. Call 911 for emergency help right away if you have symptoms of a heart attack. The most common symptoms include: Chest pain or pressure, squeezing, or fullness in the center of your chest that lasts more than a few minutes, or goes away and comes back (may feel like indigestion or heartburn) Pain or discomfort in one or both arms or shoulders, or in your back, neck, jaw, or stomach Trouble breathing Breaking out in a cold sweat for no known reason If your provider has prescribed nitroglycerin for angina, pain that does not go away after taking your nitroglycerin as directed Along with these symptoms, you may also feel very tired, faint, or be sick to your stomach. HOW IS IT DIAGNOSED? Your healthcare provider will ask about your symptoms and medical history and examine you. Tests may include: Blood tests An ECG (also called an EKG or electrocardiogram), which measures and records your heartbeat. An exercise treadmill test to see how your heart works when you exercise An echocardiogram, which uses sound waves (ultrasound) to see how well your heart is pumping Angiogram, which is a series of X-rays taken after your healthcare provider injects a special dye into your blood vessels to show the anderson of the arteries and any blockage CT scan, which uses X-rays and a computer to show detailed pictures of the arteries HOW IS IT TREATED? Your treatment depends on many factors, such as your age, heart muscle function, and other health problems. At first, treatment may include diet changes and an exercise program. Your healthcare provider may prescribe medicine. Many people need to take 2 or more medicines to help prevent a heart attack or stroke. It may take several weeks or months to find the best treatment for you. Your provider may also prescribe other types of medicine to lower blood pressure, help stop chest pain, control an irregular heartbeat, help prevent blood clots, or lower blood fat (cholesterol). Your provider may recommend a daily low dose of aspirin. Taking an aspirin every day may lower your risk for a heart attack or stroke. Not everyone should take aspirin. Daily use of aspirin can cause problems, such as stomach irritation, bleeding, and hearing loss. Ask your healthcare provider if you should take aspirin and if so, how much to take. If your coronary arteries are badly blocked, you may need balloon angioplasty or bypass surgery. A balloon angioplasty opens blocked blood vessels and improves blood flow. A metal mesh device called a stent is usually left in the blood vessels to help keep them open. Bypass surgery uses blood vessels from other parts of the body, or manmade material, to make a new path around a blocked area. HOW CAN I TAKE CARE OF MYSELF? CC If you have coronary artery disease, there are things you can do to take care of yourself now and prevent problems in the future. Follow your provider's advice about activity, exercise, medicine, and follow-up visits. Lower the amount of salt, saturated and trans fats, and cholesterol in your diet. Work with your healthcare provider to control diabetes, blood pressure, or other health problems you may have. Try to keep a healthy weight. If you are overweight, talk to your provider about ways to lose weight. If you smoke, try to quit. Talk to your healthcare provider about ways to quit smoking. Ask your healthcare provider: How and when you will hear your test results How long it will take to recover What activities you should avoid and when you can return to your normal activities How to take care of yourself at home What symptoms or problems you should watch for and what to do if you have them Make sure you know when you should come back for a checkup. HOW CAN I HELP PREVENT CORONARY ARTERY DISEASE? You can prevent this disease with a heart-healthy lifestyle: Eat a healthy diet and keep a healthy weight. Stay fit with the right kind of exercise for you. Find ways to manage stress. Don t smoke. Limit your use of alcohol. Talk to your healthcare provider about your personal and family medical history and your lifestyle habits. This will help you know what you can do to lower your risk for coronary artery disease. If you have a strong family history of CAD, a healthy lifestyle may slow the start of the disease and maybe even keep you from getting it. However, you must have regular checkups to keep a close watch on the health of your heart. Developed by [employer]. Published by [employer]. Copyright 2014 [employer] and/or one of its subsidiaries. All rights reserved. documented in this encounter [facility] 07-06-2023 Nurse Note Patient states they are not having any cardiac issues presently. documented in this encounter [facility] 07-06-2023 History of Present illness Narrative Chief Complaint Patient presents with: CARD Hospital Follow Up: CAD History of Present Illness: Amalia Corral is a very pleasant 72 year old female who presents for hospital follow up. She has a PMhx of CAD (status post RYAN to LAD and RCA 06/01/2023), mitral valve regurgitation, hypertension, hyperlipidemia, PAF, DM2. She plans to establish as a patient of Dr. Ortiz. She prefers to follow up at our [place] location. Today, her daughter accompanies her for her office visit. She states she has been doing well since she was discharged from the hospital. She has been attending cardiac rehab but requires clearance to return due to an episode of A-fib RVR. She feels occasional palpitations. She, otherwise, denies chest discomfort, shortness of breath, dizziness, orthopnea, LE swelling. She requires a rolling walker to ambulate long distances. We reviewed her hospitalization. We reviewed cardiac risk factors modifications. She reports taking medication as prescribed. Refills were sent to her pharmacy. PAST MEDICAL HISTORY Diagnosis Date Acute rheumatic heart disease, unspecified Aortic valve insufficiency Atrial fibrillation (HCC) Diabetes mellitus type 2 in obese (HCC) 03/2012 Heart disease, rheumatic History of PTCA 06/01/2023 LAD & RCA Hyperlipemia Hypertension Hypothyroid Mitral valve regurgitation Osteopenia Pulmonary hypertension (HCC) Unspecified vitamin D deficiency 10/15/2008 Vit D level 10/09: 15.7, started weekly Vitamin D. PAST SURGICAL HISTORY Procedure Laterality Date CARDIOVERSION x2 CHOLECYSTECTOMY 10/01/1982 Cholecystectomy PERCUTANEOUS CORONARY INTERVENTION 06/01/2023 LAD & RCA TOTAL ABDOMINAL HYSTERECT W/WO RMVL TUBE OVARY 10/01/1975 Hysterectomy, ALY FAMILY HISTORY Problem Relation Age of Onset None Father unknown health Stroke Mother POLYCYSTIC KIDNEY DISEASE,HEART DISEASE ,HYPERTENSION Hypertension Mother Heart Mother ? None Maternal Grandfather black lung other (polycystic kidney disease) Brother Breast Cancer Maternal Aunt Cancer Maternal Aunt leukemia Heart Brother AF None Sister Ischemic Heart Disease Brother [place] 66 Social History Tobacco Use Smoking status: Former Packs/day: 1.50 Years: 15.00 Additional pack years: 0.00 Total pack years: 22.50 Types: Cigarettes Quit date: 10/01/1989 Years since quittin.7 Smokeless tobacco: Never Substance Use Topics Alcohol use: Yes Comment: rarely Drug use: No ALLERGIES Allergen Reactions Marco Inhibitors Cough Losartan Potassium Rash At higher doses (ok at low dose) Medications: Current Outpatient Medications Medication Sig Dispense Refill metFORMIN (GLUCOPHAGE) 500 mg tablet Take 1,000 mg by mouth twice daily with meals. nitroglycerin sublingual (NITROQUICK) 0.4 mg SL tablet Dissolve 1 tablet under the tongue every 5 minutes as needed for chest pain. 90 tablet 1 cyanocobalamin (VITAMIN B-12) 1,000 mcg tab Take 1,000 mcg by mouth once daily. furosemide (LASIX) 20 mg tablet Take 20 mg by mouth once daily. Levothyroxine 25 mcg cap Take 25 mcg by mouth once daily. insulin detemir (LEVEMIR) 100 unit/mL injection Inject 8 Units subcutaneously once daily. In the morning apixaban (ELIQUIS) 5 mg tab tab(s) Take 1 tablet by mouth twice daily. 60 tablet 12 clopidogrel (PLAVIX) 75 mg tablet Take 1 tablet by mouth once daily. 90 tablet 3 metoprolol succinate ER (TOPROL XL) 25 mg 24 hr tablet Take 1 tablet by mouth once daily. 90 tablet 3 risperiDONE (RISPERDAL) 1 mg tablet Take 1 mg by mouth daily at bedtime. No current facility-administered medications for this visit. Review of Systems Constitutional: Negative for chills, diaphoresis, fever, malaise/fatigue and weight loss. HENT: Negative for congestion, ear pain, nosebleeds, sinus pain and sore throat. Eyes: Negative for pain. Respiratory: Negative for cough, shortness of breath and wheezing. Cardiovascular: Positive for palpitations. Negative for chest pain and leg swelling. Gastrointestinal: Negative for abdominal pain, blood in stool and melena. Genitourinary: Negative for hematuria. Musculoskeletal: Negative for falls. Neurological: Negative for dizziness, tingling, sensory change, speech change, focal weakness, loss of consciousness, weakness and headaches. Endo/Heme/Allergies: Does not bruise/bleed easily. Psychiatric/Behavioral: Negative for depression, memory loss and suicidal ideas. The patient is not nervous/anxious and does not have insomnia. Physical Examination: Vitals:BP 96/62 Pulse 78 Resp 18 Ht 5' 4" (1.63m) Wt 148 lb 6.4 oz (67.3kg) SpO2 99[room air]% BMI 25.46 kg/(m^2). Last 2 Encounter Wt Readings: Date: Wt: 05/29/2023 157 lb 13.6 oz (71.6 kg) 03/14/2017 181 lb 9.6 oz (82.4 kg) Physical Exam HENT: Head: Normocephalic. Eyes: Pupils: Pupils are equal, round, and reactive to light. Cardiovascular: Rate and Rhythm: Normal rate and regular rhythm. Pulses: Radial pulses are 2+ on the right side and 2+ on the left side. Dorsalis pedis pulses are 2+ on the right side and 2+ on the left side. Heart sounds: Normal heart sounds, S1 normal and S2 normal. Pulmonary: Effort: Pulmonary effort is normal. No accessory muscle usage or respiratory distress. Breath sounds: Normal breath sounds. Abdominal: General: Bowel sounds are normal. Palpations: Abdomen is soft. Musculoskeletal: General: Normal range of motion. Cervical back: Normal range of motion. Right lower leg: No edema. Left lower leg: No edema. Skin: General: Skin is warm and dry. Comments: Groin site heart catheterization healed Neurological: Mental Status: She is alert and oriented to person, place, and time. Gait: Gait is intact. Psychiatric: Mood and Affect: Affect normal. Cognition and Memory: Memory normal. Judgment: Judgment normal. Most Recent Cardiac Testing GISELE 05/30/2023 CONCLUSIONS: - Exam indication: Initial evaluation valvular heart disease - The left ventricle is normal in size. Left ventricular systolic function is normal. EF = 55 5% (visual est.) - The right ventricle is normal in size. - The left atrial cavity is severely dilated. LA severely enlarged;. - The right atrial cavity is mildly dilated. - There is moderate (2+) mitral valve regurgitation due to restricted leaflet motion. Probable rheumatic mitral valve with shortened chordae and anteriorly leaflet thickening and predominantly fixed posterior leaflet; little or no MS: overall moderate MR; no reflux into pulm veins. - 1-2+ AR; 2 separate jets;. - There is no patent foramen ovale as detected by Doppler and agitated saline contrast. Arch and desc aorta normal in caliber with mild atheromatous disease - The patient has not had a prior CC echocardiographic exam for comparison. Assessment and Plan: ASSESSMENT/PLAN: 1. Coronary artery disease 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 - ICD9: 414.01, ICD10: I25.10 (primary diagnosis) -status post RYAN to LAD and RCA 06/01/2023 -without symptoms concerning for angina -EF 55% -continue Plavix and statin. No aspirin secondary to Eliquis -Attending cardiac rehab -encouraged routine activity and heart healthy diet for risk factor modification - CLOPIDOGREL 75 MG TABLET - METOPROLOL SUCCINATE ER 25 MG TABLET,EXTENDED RELEASE 24 HR 2. Primary hypertension - ICD9: 401.9, ICD10: I10 96/62 -Continue current medication(s) -Encouraged dietary sodium restriction/DASH diet -Recommended regular aerobic exercise. -Recommend home blood pressure monitoring, to bring results in on next visit -Goal of BP <130/80 3. Mixed hyperlipidemia - ICD9: 272.2, ICD10: E78.2 Lipid panel 05/20/2023 LDL 27 Continue Crestor 10 mg 4. Rheumatic mitral valve disease - ICD9: 394.9, ICD10: I05.9 Moderate on GISELE 5. Chronic atrial fibrillation (HCC) - ICD9: 427.31, ICD10: I48.20 -Experiences some palpitations and did have an elevated rate at cardiac rehab. She was evaluated by EP during her recent hospitalization was noted to have A-fib with a low ventricular rate. Blood pressure is also soft so I am unable to titrate medication today in office. I recommended further evaluation with Zio patch monitor for 7 days. Possible outpatient referral to EP for further management Continue metoprolol 25 mg [id number] elevated continue Eliquis for stroke risk reduction 6. Type 2 diabetes mellitus without complication, with long-term current use of insulin (HCC) - ICD9: 250.00, V58.67, ICD10: E11.9, Z79.4 -Insulin requiring Follow-up with Dr. Ortiz in 6 months. Patient to call with any issues or concerns prior to then. Electronically signed by Randi Villa APRN.CNP on July 06, 2023, 10:50 AM documented in this encounter [facility] 06-11-2023 Miscellaneous Notes Images from the original note were not included. Betty Tran You 1 hour ago (11:35 AM) [place] Spoke to pts Daughter and scheduled her mom for 4-6 week post stent procedure with DERIC Villa at [facility] on 07/06/23 for 11:00a. Betty Tran June 11, 2023 11:35 AM Call received from patient's daughter Aric for 3 week f/u post stent placement on 06/01/23. Aric states that she spent a couple hours on hold attempting to reach someone to make this appointment and then was transferred to [place]. Patient is not an established patient in [place] with Dr. Ortiz. This nurse attempted to reach out to sofi to help facilitate this appointment. Please reach out to the patient's daughter Aric at [phone]. Pauline Guillen, RN documented in this encounter [facility] 06-01-2023 Telephone encounter Note Noted. Will await call back from daughter for scheduling. [facility] 06-01-2023 Miscellaneous Notes Noted. Will await call back from daughter for scheduling. I spoke with the patients daughter. The appointment was cancelled due to the patient being in the hospital. Aric the daughter will call to reschedule at a later date. Left message to reschedule Name of caller: Rick Contact phone number: [phone] Relationship to Patient: family member patient and daughter Provider: Ivanna Ren Practice: [facility] Chief Complaint/Reason for Call: patient is hospitalized and needs to cancel her appt that she has scheduled with Ivanna on 06/05/23. Patients daughter wanting a call back to reschedule. Please advise. Best time of day caller can be reached: any Patient advised that office/PCP has 24-48 business hours to return their call: No documented in this encounter [facility] 06-01-2023 Telephone encounter Note I spoke with the patients daughter. The appointment was cancelled due to the patient being in the hospital. Aric the daughter will call to reschedule at a later date. [facility] 05-31-2023 Telephone encounter Note Left message to reschedule [facility] 05-31-2023 Telephone encounter Note Name of caller: Rick Contact phone number: [phone] Relationship to Patient: family member patient and daughter Provider: Ivanna Ren Practice: [facility] Chief Complaint/Reason for Call: patient is hospitalized and needs to cancel her appt that she has scheduled with Ivanna on 06/05/23. Patients daughter wanting a call back to reschedule. Please advise. Best time of day caller can be reached: any Patient advised that office/PCP has 24-48 business hours to return their call: No [facility] 05-29-2023 History of Past i llness Narrative Problem Noted Date Diagnosed Date Resolved Date Chest pain 05/29/2023 01/04/2024 Unstable angina 05/29/2023 01/04/2024 Persistent atrial fibrillation 03/27/2016 01/04/2024 Cellulitis and abscess of toe, unspecified 11/06/2007 10/15/2008 Contact dermatitis and other eczema, due to unspecified cause 10/11/2007 10/15/2008 Ingrowing nail 08/23/2007 10/15/2008 documented as of this encounter (statuses as of 01/07/2024) [facility] Discharge summary Author Sanam Stubbs [facility] May 29, 2023 5:04am Note Date/Time May 28, 2023 10 :27pm [facility] Medical Records Department [address] [place] [address] Emergency Department Summary 05/28/23 MR#: [id number] Acct: [id number] Name: AMALIA CORRAL AISSATOU Rep #:[id number] : [id number] 72 From: Sanam Stubbs MD PCP: Dr. Rajat Patel MD Status:REG ER Location: ED HPI History of Present Illness Chief Complaint: Chest Pain Informant: patient Onset/Context/Timing Onset: Today Activity at onset: gradual Timing: Waxes and wanes Quality: Positive for Heaviness Location: Right Chest Current Severity: Mild Maximum Severity: Moderate Narrative Narrative: Patient presents secondary to right-sided chest pain with nausea and vomiting. Symptoms started this afternoon and were gradual in onset. No fever or chills. No diarrhea. Patient was recently seen on May 24 for a heart cath. At that time she was found to have a 90% proximal LAD lesion and a 70% mid LAD lesion. There are other blockages including an 80% proximal large RPLV lesion. Patient was referred to cardiovascular surgery at [facility] and has an appointment in June. We received a phone call from the circuit breaker mechanic here in town stating the patient was coming back into the emergency room. They recommended work-up and transfer to [facility] if at all possible given her current symptoms. [facility] Medical History Chronic diastolic (congestive) heart failure Chronic kidney disease (CKD) Diastolic dysfunction without heart failure Essential (primary) hypertension Hyperlipidemia Incomplete left bundle branch block (LBBB) Left ventricular systolic dysfunction (LVSD) Mitral regurgitation Nonrheumatic mitral valve stenosis with insufficiency Nonrheumatic tricuspid (valve) insufficiency Obesity Persistent atrial fibrillation Secondary pulmonary arterial hypertension Sick sinus syndrome Type 2 diabetes mellitus Home Medications insulin detemir U-100 100 unit/mL (3 mL) subcutaneous pen 8 unit subcut DAILY 03/26/18 [History Last Taken Unknown] metformin 500 mg tablet 500 mg PO BID 03/26/18 [History Last Taken 05/22/23] cyanocobalamin (vitamin B-12) 1,000 mcg tablet (Vitamin B-12) 1,000 mcg PO DAILY03/19/23 [History Last Taken Unknown] apixaban 5 mg tablet (Eliquis) 5 mg PO BID #60 tabs 03/28/23 [Rx Last Taken 05/21/23] levothyroxine 25 mcg tablet 25 mcg PO QDAY #90 tabs 04/09/23 [Rx Last Taken 05/24/23] rosuvastatin 10 mg tablet 10 mg PO DAILY #90 tabs 04/09/23 [Rx Last Taken Unknown] digoxin 125 mcg (0.125 mg) tablet 125 mcg PO DAILY #90 tabs 04/18/23 [Rx Last Taken 05/24/23] diltiazem HCl 180 mg capsule,extended release 24 hr 180 mg PO Q12 #180 caps 04/18/23 [Rx Last Taken 05/24/23] furosemide 20 mg tablet 20 mg PO DAILY #90 tabs 04/18/23 [Rx Last Taken Unknown] metoprolol tartrate 50 mg tablet 50 mg PO BID #180 tabs 04/18/23 [Rx Last Taken 05/24/23] olmesartan 20 mg tablet 10 mg (1/2 x 20 mg) PO DAILY #90 tabs 04/18/23 [Rx Last Taken Unknown] risperidone 1 mg tablet 1 mg PO QHS 05/07/23 [History Last Taken Unknown] Allergy/AdvReac Type Severity Reaction Status Date / Time MARCO Inhibitors AdvReac Cough Verified 05/07/23 14:12 Family History Mother CAD (coronary artery disease) Brother , Age 65 [place] CAD (coronary artery disease) Atrial fibrillation Myocardial infarction Father , in MVA No problems noted. Surgical History History of cholecystectomy Hx of cardiac catheterization (~05/24/23) S/P ALY (total abdominal hysterectomy) Social History Smoking Status: Former smoker how long ago did patient quit smoking: greater than 20 years alcohol intake: never substance use type: does not use caffeine: Yes Type: coffee Number of servings: 1 ROS ROS ED Constitutional Constitutional ED: Denies chills or fever(s) Eyes Eyes: Denies change in vision ENT ENT ED: Denies rhinorrhea or sore throat Cardiovascular Cardiovascular: Reports chest pain; Denies palpitations Respiratory/Chest Respiratory/Chest: Denies cough or dyspnea Gastrointestinal Gastrointestinal: Reports nausea and vomiting; Denies abdominal pain or diarrhea Genitourinary Genitourinary ED: Denies dysuria Musculoskeletal Musculoskeletal: Denies back pain or extremity pain Integumentary Denies Abrasions or rash Neurologic Neurologic: Denies headache(s) Psychiatric Psychiatric: Denies anxiety or depression Allergic/Immunologic Allergic/Immunologic ED: Denies lip swelling or urticaria EXAM Physical Exam Const Vital Signs: 05/28/23 21:25 05/28/23 22:11 05/28/23 22:39 Temperature 97.9 F Temperature Source Temporal Pulse Rate 74 74 Respiratory Rate 18 21 H Blood Pressure 117/66 115/91 H Blood Pressure Mean 83 99 Pulse Ox 98 96 Oxygen Delivery Method Room Air Room Air Room Air 05/28/23 23:00 05/29/23 00:00 Temperature Temperature Source Pulse Rate 69 77 Respiratory Rate 24 H 19 H Blood Pressure 116/60 120/83 H Blood Pressure Mean 77 94 Pulse Ox 96 98 Oxygen Delivery Method Positive well nourished and well developed General Appearance ED: well developed HEENT Reports normocephalic and head/scalp atraumatic Eyes PERRL and EOMs intact bilaterally Neck supple Chest Wall inspection of chest normal and palpation of chest normal Resp normal respiratory effort and clear to auscultation bilaterally Cardio regular rate and regular rhythm GI GI Narrative: Abdomen soft and nontender. Hypoactive bowel sounds. Palpation: soft Extremity normal to inspection Neuro oriented x3 and no sensory deficits noted Sensorium / Orientation: alert Motor Exam: strength 5/5 throughout Psych mental status grossly normal Skin no rashes or lesions noted Heart Score History: Moderately Suspicious ECG: Normal Age: >/= 65 years Risk Factors: >/= 3 Risk Factors or History of CAD Troponin: </= Normal Limit Score: 5 MDM MDM MDM Narrative Medical decision making narrative: Labs and x-ray initiated via nursing protocol. History & Record Review Discussion w/independent historian: Patient and Family Additional record(s) reviewed:: Prior outpatient record and Prior labs Lab Data Attestation: I reviewed the patient's lab results. Labs: Laboratory Results - last 24 hr 05/28/23 05/28/23 21:37 23:57 WBC 14.3 H RBC 4.74 Hgb 14.6 Hct 44.5 MCV 93.9 MCH 30.8 MCHC 32.8 RDW Std Deviation 53.6 H RDW Coeff of [place] 15.6 H Plt Count 255 MPV 9.2 Immature Gran % (Auto) 0.400 Neut % (Auto) 85.4 H Lymph % (Auto) 6.4 L Lassen % (Auto) 7.1 Eos % (Auto) 0.5 Baso % (Auto) 0.2 Absolute Neuts (auto) 12.2 H Absolute Lymphs (auto) 0.91 Nucleated RBC % 0 Sodium 140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 BID #60 tabs 03/25/23 risperidone 1 mg tablet 1 mg PO QHS #30 tabs 03/25/23 Hospital Course Procedures 2-D Echocardiogram, EKG and - (Chest x-ray/MRI brain) Summary of Care Provided Minutes Spent on Discharge: 38 Hospital Course: Mrs. Corral is a 72-year-old white female who presented to the emergency department at [facility] on 03/19/2023 via private vehicle due toa syncopal episodes that had been occurring at home. She had a syncopal episodein the triage area and her heart rate was noted to be 20s at that time. She wasimmediately brought back to a room and placed in Trendelenburg position with a noted blood pressure of 66 systolic and heart rate in the low 30s. Family reported that she was complaining of chest pain prior to presentation and had not been feeling well for about 15 minutes prior to arrival. Once the patient was more awake she indicated she had not been feeling well all day and had been having some intermittent chest pressure. The patient does have a history of atrial fibrillation and had been living in [place] up until recently (4 days ago). She was noted to be on diltiazem and metoprolol at high doses for her history of atrial fibrillation and she is on apixaban chronically. Initially reported that she did not miss any doses however upon further investigation there is high suspicion that she had not been taking any of her regular medications completely as directed. Pacer pads were placed immediately and she was given atropine with no response in her heart rate. IV fluids were given andshe was given half amp of epinephrine with improvement of heart rate and blood pressure. Her heart rate did drop back down once epinephrine started to wear off with heart rates in the 40s and hypotension was noted as well. She was started on epinephrine drip at that time. The case was discussed with the on-call circuit breaker mechanic in the emergency department and they recommended transitioningher from epinephrine to dopamine. The patient was also given calcium gluconate. Her rate limiting medications were held and she was admitted to the ICU on a dopamine drip. She was evaluated by cardiology the following morning and her heart rates had been stable. Her dopamine was weaned at that time and was able to be turned off by the late afternoon of the same day. An echocardiogram was performed and demonstrated an EF of 45%. At least stage II diastolic dysfunction, severe left atrial enlargement and moderate right atrial enlargement, severe mitral valve insufficiency, moderate tricuspid valve insufficiency and a right ventricular systolic pressure of 51 mmHg. There is also some mild to moderate aortic valve insufficiency and a mildly dilated aortic root. Jardiance was started for her heart failure at 10 mg daily and shewas discharged with this. Overnight from 03/20/2023 to 03/21/2023 the patient developed worsening tachycardia for which she was started on amiodarone drip. Cardiology came in the next day reevaluated the patient and restarted lower doses of Cardizem and metoprolol. Her tachycardia persisted and these medications were uptitrated and eventually digoxin had to be added at a low doseof 125 mcg daily. The addition of digoxin seem to control her heart rate and rates at discharge or anywhere from 70-95. After her first night of hospitalization she developed some delirium and hallucinations. A UA was performed and was consistent with infection. She was started on ceftriaxone andhis urine culture was sent. Urine culture was resulted and unfortunately was resistant to ceftriaxone she was then transition to ciprofloxacin which she continued and was discharged with 3 more tablets to complete a 3-day course. Her mental status during the day seem to be good however in the evening she would develop intermittent delirium, hallucinations, and agitation. This seemedvery consistent with sundowning and underlying dementia. None of her family hadseen her recently and we were unable to talk to her as he is currently hospitalized at [facility] for a spontaneous head bleed. Family had noted some mild forgetfulness but she had never been diagnosed with any dementiaand was still caring for herself and driving prior to to coming to [place] from [place]. We started some Risperdal to help with her behaviors in the evening and this did seem to help. She was sent home on this medication at 1 mg nightly. 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 There is no recollection by the patient or family of ever receiving a diagnosis of a stroke. Despite treatment ofHer urinary tract infection she remained with some delirium and hallucinations. We did have neurology see her. Are working diagnosis was probably some underlying dementia in association with some delirium from being hospitalized and having a urinary tract infection. They agreed with our diagnosis and agreed with treatment with respite all. I did discuss with the patient and her family about neurocognitivetesting after discharge and information to follow-up with regards to this was given to the patient and family and they were instructed to call for follow-up. They voiced understanding and indicated they would do this. We will have them dose for Risperdal dose at 6 PM as she seems to start at that point. She was able to be discharged in stable condition on 03/25/2023 to her daughter'shome. New prescriptions for diltiazem, metoprolol, digoxin, Jardiance, Risperdal, and her ciprofloxacin to complete treatment for her UTI was all sent to local pharmacy prior to discharge. She is to establish with a primary care physician which she has not done so as of yet being new to the area again. We recommended she do this is soon as possible and follow-up as soon as appointmentis available. She is to call on 03/26/2023 to set up an appointment to be seen in Dr. Wynn's office for ongoing cardiology care. Discharge diagnoses: Symptomatic bradycardia-suspect iatrogenic A-fib with RVR Hypokalemia-resolved Toxic/metabolic encephalopathy Suspected mild cognitive impairment versus dementia E. coli UTI CKD stage IIIb Chronic HFrEF-compensated Hypothyroidism DM-2 Hyperlipidemia Hypertension History of mitral valve stenosis with insufficiency Secondary pulmonary artery hypertension-who group 2/3 History of tobacco abuse Physical Exam Const alert, oriented x3, no apparent distress and well nourished Constitutional Narrative: Older white female, sitting up in side, watching television, appears comfortableand nontoxic, mental status is at baseline currently General Appearance: cooperative, comfortable, well kempt and well developed Orientation / Consciousness: awake, oriented to person, oriented to place and oriented to time; Negative for confused, disoriented or lethargic Exam Limitations: no limitations Nutritional Appearance: overweight HEENT normocephalic, head/scalp atraumatic, hearing grossly normal bilaterally and moist oral mucous membranes HEENT Narrative: Mallampati 2, no thrush Eyes PERRL, EOMs intact bilaterally and conjunctivae normal Eyes Narrative: No scleral icterus Neck no lymphadenopathy and supple Neck Narrative: Trachea midline, no thyroid enlargement Resp normal respiratory effort, no retractions, no use of accessory muscles and clearto auscultation bilaterally Auscultation: Negative for rales, rhonchi or wheezes Cardio regular rate, S1 normal heart sound, S2 normal heart sound, no murmurs, no rub, no gallops and no clicks; Negative for regular rhythm Cardio Narrative: Irregularly irregular rhythm, rhythm is currently well controlled GI normal to inspection, nondistended, normoactive bowel sounds, soft to palpation and non-tender Extremity no clubbing, cyanosis or edema Extremity Narrative: Pedal pulses are 2+ Skin no rashes or lesions noted, no wounds, skin turgor normal, no jaundice, no petechiae and no mottling Neuro oriented x3, CN's II-XII intact bilaterally, moves all extremities and no focal motor deficits Sensorium / Orientation: awake, alert, oriented to person, oriented to place andoriented to time Speech: speech normal Psych affect normal Psych Narrative: Very pleasant, appropriately interactive Weight / BMI Weight Weight: 73 kg Body Mass Index (BMI) 25.9 ABG / Lab / Microbiology Data Result Diagrams: 03/23/23 05:57 03/24/23 05:31 Laboratory: Laboratory Results - last 24 hr 03/24/23 16:17: POC Glucose 124 H 03/24/23 22:24: POC Glucose 109 H 03/25/23 06:29: POC Glucose 101 Microbiology: Microbiology 03/21/23 10:20 Urine, Clean Catch Urine Culture - Final Presumptive E. coli D/C Instructions Discharge Diet: Low fat / Low cholesterol and 1800 Calorie Control Diet Discharge Activity: Return to Normal Activity and May Not Drive Meaningful Use Info Meaningful Use Diagnoses (Choose all that apply): None applicable Discharge Plan Admission Admit Date/Time: 03/19/23 20:14 Primary Reason for Your Visit: Syncope Attending Provider: Geeta Michaud Primary Care Provider: Care Physician,No Primary Consulting Providers: Ricco Rod ; Sharon Wynn Instructions Additional Instructions / Restrictions: 1. Please call the [facility] at [phone] to have further neurocognitive testing after discharge as I do suspect there is some underlying dementia 2. Would recommend establishing with a primary care physician to be seen as soon as possible as a new patient. 3. Would recommend dosing Risperdal at 6 or 7 PM to help with sundowning issues Discharge Orders/Prescriptions Prescriptions: New ciprofloxacin HCl 250 mg Tablet 250 mg PO BID Qty: 3 0RF digoxin 125 mcg (0.125 mg) Tablet 125 mcg PO DAILY Qty: 30 0RF diltiazem HCl 180 mg Capsule,Extended Release 24hr 180 mg PO Q12 Qty: 60 0RF Jardiance 10 mg Tablet 10 mg PO DAILY Qty: 30 0RF metoprolol tartrate 50 mg Tablet 50 mg PO BID Qty: 60 0RF risperidone 1 mg Tablet 1 mg PO QHS Qty: 30 0RF furosemide 20 mg Tablet 20 mg PO DAILY Qty: 30 0RF Continued levothyroxine 25 mcg tablet 25 mcg PO QDAY metformin 500 mg tablet 500 mg PO BID insulin detemir U-100 100 unit/mL (3 mL) insulin pen 8 unit SC DAILY olmesartan 20 mg Tablet 10 mg PO DAILY rosuvastatin 10 mg Tablet 10 mg PO DAILY cyanocobalamin (vitamin B-12) [Vitamin B-12] 1,000 mcg Tablet 1,000 mcg PO DAILY Eliquis 5 mg tablet 5 mg PO BID Qty: 60 11RF Discontinued metoprolol tartrate 100 mg Tablet 150 mg PO BID furosemide 20 mg Tablet 20 mg PO BID diltiazem HCl 300 mg capsule,extended release 24hr 300 mg PO QDAY Qty: 90 3RF Other Ambulatory Orders: Cardiac Holter Monitor, 48 Hrs (Routine) Timeframe: 1 Day Facility: [facility] - Location: Cardiovascular Services Ordered By: Dr. Geeta Michaud Referrals / Follow Up: Sharon Wynn MD [Med Staff - Active Staff] - See Referral Note (Call on Sunday am 03/26/2023 for appt to be seen in 2 weeks) Care Physician,No Primary [Primary Care Provider] - Disposition Disposition (needs filled in before D/C Order can be placed): Home, Self Care Charges/Coding Visit Charges Inpatient E&M: 70971 Disch Hosp >30min 03/25/23 1116 <Electronically signed by Geeta Michaud DO> Cosigner Signature (if applicable): CC: Dr. Sharon Wynn MD; Dr. Geeta Michaud DO; No Primary Care Physician~ Signed [facility] Work Phone: 1(203) 656-590906-24-[address] Michaud [facility] March 24, 2023 2:17pm Note Date/Time March 24, 2023 1:59 pm [facility] Medical Records Department [facility] [place] [address] Progress Note - Hospitalist 03/24/23 1357 MR#: [id number] Acct: [id number] Name: AMALIA CORRAL Rep #:[id number] : 1950 72 From: Geeta Michaud DO PCP: Care Physician,No Primary Status :ADM IN Location: [place] [address] Reason for Visit Reason for Visit: Syncope Subjective Subjective Patient still with intermittent hallucinations and confusion. Per daughter had a really good day yesterday but last evening she got agitated again and was confused and having hallucinations. Is better this morning. Seems back to baseline at this time. I did discuss with the daughter that her urine culture did show E. coli but was unfortunately resistant to the antibiotic we had her onand ceftriaxone and she has been transitioned to ciprofloxacin. EKG this morning shows normal intervals with no QTc prolongation. I do highly suspect that the patient may have some baseline dementia. The daughter states that there are some pill bottles at home and the appropriate amount of medication hasnot been taken for the dates on the bottles. We will have neurology see her butstrongly recommend outpatient neuropsych testing to further assess for cognitiveimpairment. Heart rates did trend up again last evening. She was given digoxinby cardiology and her heart rates do look better this morning. Objective Data Objective Data Vital Signs: Vital Signs Temp Pulse Resp BP Pulse Ox O2 Del Method O2 Flow Rate 98.0 F 78 14 150/78 H 99 Room Air 2 03/24/23 09:42 03/24/23 12:45 03/24/23 09:42 03/24/23 09:42 03/24/23 09:42 03/24/23 09:42 03/21/23 07:08 FiO2 94 03/21/23 07:08 Oxygen Flow Rate (L/min) 2 Oxygen Delivery Method Room Air Weight: 73 kg Body Mass Index (BMI) 25.9 Intake & Output: Intake and Output for Last 24 Hours 03/22/23 03/23/23 03/24/23 23:59 23:59 23:59 Intake Total 1550 / 1650 1273.00 / 1273.00 Balance 1550 / 1650 1273.00 / 1273.00 Lab / Micro Data Result Diagrams: 03/23/23 05:57 03/24/23 05:31 Labs: Laboratory Results - last 24 hr 03/23/23 17:09: POC Glucose 154 H 03/23/23 22:07: POC Glucose 121 H 03/24/23 05:31: Sodium 139, Potassium 3.7, Chloride 109 H, Carbon Dioxide 20.0 L, Anion Gap 10, BUN 17, Creatinine 1.06 H, Estim Creat Clear Calc 43.59, Est GFR(MDRD) Af Amer 65, Est GFR (MDRD) Non-Af 54 L, BUN/Creatinine Ratio 16.0, Glucose 79, Calcium 9.7, Magnesium 2.1 03/24/23 06:38: POC Glucose 71 L Micro: Microbiology 03/21/23 10:20 Urine, Clean Catch Urine Culture - Final Presumptive E. coli Physical Exam Const alert, oriented x3, no apparent distress and well nourished Constitutional Narrative: Older white female, sitting up in side, daughters at the bedside,, appears comfortable and nontoxic, mental status is at baseline currently Orientation / Consciousness: Negative for confused, disoriented or lethargic HEENT head/scalp atraumatic and moist oral mucous membranes HEENT Narrative: Dentition is fair for age, Mallampati is 2-3, no thrush Head and Scalp: normocephalic Resp normal respiratory effort, no retractions, no use of accessory muscles and clearto auscultation bilaterally Auscultation: Negative for rales, rhonchi or wheezes Cardio regular rate, S1 normal heart sound, S2 normal heart sound, no murmurs, no rub, no gallops and no clicks; Negative for regular rhythm Cardio Narrative: Irregularly irregular rhythm, rhythm is currently well controlled GI normal to inspection, nondistended, normoactive bowel sounds, soft to palpation and non-tender Extremity no clubbing, cyanosis or edema Extremity Narrative: Pedal pulses are 2+ Neuro oriented x3, moves all extremities and no focal motor deficits Neuro Narrative: Mentating well at this time Speech: speech normal Psych affect normal Psych Narrative: Very pleasant, appropriately interactive Assessment & Plan Assessment/Plan (1) Bradycardia: (2) Syncope: (3) Elevated serum creatinine: (4) Hypoxia: (5) Toxic metabolic encephalopathy: (6) Diastolic dysfunction without heart failure: (7) Sick sinus syndrome: (8) Chronic kidney disease (CKD): (9) E. coli UTI: (10) Hypokalemia: PLAN: Plan Symptomatic bradycardia -Several syncopal episodes prior to admission -Heart rate in the 20s at lowest -Suspect iatrogenic related to her calcium channel rajinder and beta-rajinder -Remains tachycardic with A-fib with RVR but rates improving with up titration of her calcium channel rajinder/beta-rajinder -Unfortunately had further heart rate elevation to the night and amiodarone drip was reinitiated--> we will stop and make adjustments in beta-rajinder today per discussion with cardiology -Echocardiogram showed mild global left ventricular dysfunction with an EF of 45% and at least stage II diastolic dysfunction, severe biatrial enlargement, moderate mitral valve insufficiency, right ventricular systolic pressure 51 mmHg, mild to moderate aortic valve insufficiency, mildly dilated aortic root -Last echocardiogram from 04/11/2019 showed a normal EF at 53% and diastolic dysfunction cannot be estimated due to arrhythmia with atrial fibrillation and moderate mitral valve calcification with stenosis at 1+ insufficiency, pulmonaryartery systolic pressures were 26 mmHg -TSH is within normal limits -Cardiology is following-appreciate input -Per documentation they suspect that she will be able to be controlled with medications only and no pacemaker required at this time -Will need 48-hour Holter monitor at discharge Atrial fibrillation with RVR -Suspect SSS -Continue Cardizem and metoprolol -Cardizem transition to 120 mg p.o. twice daily -Increase metoprolol to 50 mg twice daily (previous home baseline doses onpc739 mg p.o. twice daily of metoprolol and 300 mg daily of diltiazem) -Backup pacemaker is not off the table at this point however it sounds as if cardiology is going to hold off currently -Continue Eliquis Hypokalemia -Resolved Toxic/metabolic encephalopathy -Suspect multifactorial--> bradycardia, mild cognitive impairment at baseline, UTI, medication induced -Still with intermittent delirium that seems more consistent with -MRI of the brain done yesterday 03/21/2023 showed no evidence of acute infarct or enhancing intracranial mass but did show chronic involutional and white matter changes and an old left occipital infarct. -Continue Risperdal 1 mg at bedtime and 0.25 mg in the a.m. -Overall much improved -I do recommend the patient undergo cognitive testing for memory loss after discharge--> we will make referral to geriatric center at [facility] after discharge -Consult neurology to see if they have any further input E. coli UTI -Continue ciprofloxacin 250 mg p.o. twice daily x3 days--> day 2 of 3 CKD stage IIIb -Baseline appears to be at 1.2-1.4 as noted previously -Serum creatinine currently 1.03 -Avoid nephrotoxins as able -Continue to monitor Chronic HFpEF-compensated -Likely due to diastolic dysfunction -Continue Lasix -Continue Jardiance and will continue at discharge Hypothyroidism -TSH is within normal limits -Continue levothyroxine DM-2 -Continue Lantus 8 units -SSI before meals and at bedtime -Blood sugars are well controlled -Accu-Cheks as ordered -Cardiac/carb controlled diet Hyperlipidemia -Continue statin Hypertension -Continue Lasix -Continue home ARB -Continue beta-rajinder/calcium channel rajinder per cardiology History of mitral valve stenosis with insufficiency -Currently stable Secondary pulmonary hypertension -Suspect who group 2 or 3 -Continue home Lasix -Last echo done in 2018 showed pulmonary artery systolic pressures at 26 mmHg-->worse this echocardiogram showing a right ventricular systolic pressure 51 mmHg History of tobacco abuse -Remote DVT prophylaxis -Continue Eliquis CODE STATUS -full code Charges/Coding Visit Charges Inpatient E&M: 90729 Subs Hosp L2 03/24/23 1417 <Electronically signed by Geeta Michaud DO> Cosigner Signature (if applicable): CC: ~ Signed [facility] Work Phone: [phone]) 130-873406-24-[address] Wnyn [facility] March 24, 2023 12:05pm Note Date/Time March 24, 2023 12:0 5pm [facility] Medical Records Department [address] [place] [address] Progress Note - Cardiology 03/24/23 1158 MR#: [id number] Acct: [id number] Name: AMALIA CORRAL Rep #:[id number] : 1950 72 From: Sharon Wynn MD PCP: Care Physician,No Primary Status :ADM IN Location: [place] [address]- Subjective Subjective Denies any complaints. Ventricular rate better. Objective Data Vital Signs: Vital Signs Temp Pulse Resp BP Pulse Ox O2 Del Method O2 Flow Rate 98.0 F 79 14 150/78 H 99 Room Air 2 03/24/23 09:42 03/24/23 09:50 03/24/23 09:42 03/24/23 09:42 03/24/23 09:42 03/24/23 09:42 03/21/23 07:08 FiO2 94 03/21/23 07:08 Oxygen Flow Rate (L/min) 2 Oxygen Delivery Method Room Air Weight: 160 lb 14.999 oz Body Mass Index (BMI) 25.9 Intake & Output: Intake and Output for Last 24 Hours 03/22/23 03/23/23 03/24/23 23:59 23:59 23:59 Intake Total 1550 / 1650 1273.00 / 1273.00 Balance 1550 / 1650 1273.00 / 1273.00 Lab / Micro Data Result Diagrams: 03/23/23 05:57 03/24/23 05:31 Labs: Laboratory Results - last 24 hr 03/23/23 17:09: POC Glucose 154 H 03/23/23 22:07: POC Glucose 121 H 03/24/23 05:31: Sodium 139, Potassium 3.7, Chloride 109 H, Carbon Dioxide 20.0 L, Anion Gap 10, BUN 17, Creatinine 1.06 H, Estim Creat Clear Calc 43.59, Est GFR(MDRD) Af Amer 65, Est GFR (MDRD) Non-Af 54 L, BUN/Creatinine Ratio 16.0, Glucose 79, Calcium 9.7, Magnesium 2.1 03/24/23 06:38: POC Glucose 71 L Micro: Microbiology 03/21/23 10:20 Urine, Clean Catch Urine Culture - Final Presumptive E. coli Cardiology Labs/Tests 03/24/23 05:31: Sodium 139, Potassium 3.7, Chloride 109 H, Carbon Dioxide 20.0 L, Anion Gap 10, BUN 17, Creatinine 1.06 H, Est GFR (MDRD) Af Amer 65, Est GFR (MDRD) Non-Af 54 L, BUN/Creatinine Ratio 16.0, Glucose 79, Calcium 9.7, Magnesium 2.1 Rhythm: EKG: ECHO: Stress Test: Cardiac Cath: PCI: CT Surgery: Holter monitor: EPS: PPM: CXR: Chest CT Scan: Physical Exam Narrative Comfortable. No apparent distress. Heart sounds 1 and 2 noted. Irregularly irregular. Chest clear to auscultation bilaterally. Alert oriented x3. No ankle edema noted. Assessment & Plan Assessment/Plan (1) Syncope: PLAN: Secondary to symptomatic bradycardia and hypotension. Likely iatrogenic. Resolved with stopping her negative chronotropic medications.. (2) Sick sinus syndrome: PLAN: Atrial fibrillation. Ventricular rate controlled. (3) Persistent atrial fibrillation: PLAN: On Eliquis. See #1 and 2 above. (4) Chronic kidney disease (CKD): PLAN: As per internal medicine. (5) Essential (primary) hypertension: PLAN: Monitor. (6) Diastolic dysfunction without heart failure: PLAN: Started on Lasix. Start on SGLT2 inhibitors. (7) Mitral regurgitation: PLAN: Continue diuretics. Continue afterload reduction with angiotensin receptor rajinder. (8) Left ventricular systolic dysfunction (LVSD): PLAN: Continue angiotensin receptor rajinder. Continue beta-blockers. On Jardiance. Will consider outpatient stress test. 03/24/23 1205 <Electronically signed by Sharon Wynn MD> Cosigner Signature (if applicable): CC: ~ Signed [facility] Work Phone: 1(394) 766-440306-23-[address] Michaud [facility] March 23, 2023 12:02pm Note Date/Time March 23, 2023 11:5 9am [facility] Medical Records Department [address] [place] [id number] Progress Note - Hospitalist 03/23/23 1152 MR#: [id number] Acct: [id number] Name: AMALIA CORRAL Rep #:[id number] : 1950 72 From: Geeta Michaud DO PCP: Care Physician,No Primary Status :ADM IN Location: [place] [address] Reason for Visit Reason for Visit: Syncope Subjective Subjective No issues overnight. Mental status is back to baseline and no issues with hallucinations or delirium. Heart rates did elevate to as high as 150 through the night. [employer] restarted amiodarone drip but this has since been stoppedand adjustments made by cardiology and medication regimen. Patient will be ableto be discharged once heart rates are better controlled. I discussed with with her and she voiced understanding. Objective Data Objective Data Vital Signs: Vital Signs Temp Pulse Resp BP Pulse Ox O2 Del Method O2 Flow Rate 97.0 F L 135 H 21 H 113/66 95 Room Air 2 03/23/23 09:00 03/23/23 09:54 03/23/23 09:00 03/23/23 09:54 03/23/23 09:00 03/23/23 09:00 03/21/23 07:08 FiO2 94 03/21/23 07:08 Oxygen Flow Rate (L/min) 2 Oxygen Delivery Method Room Air Weight: 75 kg Body Mass Index (BMI) 26.6 Intake & Output: Intake and Output for Last 24 Hours 03/21/23 03/22/23 03/23/23 23:59 23:59 23:59 Intake Total 702.28 / 702.28 1550 / 1650 553.00 / 553.00 Output Total 300 / 300 Balance 402.28 / 402.28 1550 / 1650 553.00 / 553.00 Lab / Micro Data Result Diagrams: 03/23/23 05:57 03/23/23 05:57 Labs: Laboratory Results - last 24 hr 03/22/23 15:53: POC Glucose 99 03/22/23 23:45: POC Glucose 113 H 03/23/23 05:57: WBC 7.3, RBC 3.97 L, Hgb 11.8 L, Hct 35.8 L, MCV 90.2, MCH 29.7,MCHC 33.0, RDW Std Deviation 48.8 H, RDW Coeff of [place] 14.9 H, Plt Count 197, MPV9.4, Immature Gran % (Auto) 0.100, Neut % (Auto) 75.1 H, Lymph % (Auto) 14.7 L, Lassen % (Auto) 9.6, Eos % (Auto) 0.4, Baso % (Auto) 0.1, Absolute Neuts (auto) 5.5, Absolute Lymphs (auto) 1.07, Nucleated RBC % 0 03/23/23 05:57: Sodium 139, Potassium 3.0 L, Chloride 109 H, Carbon Dioxide 20.0L, Anion Gap 10, BUN 18, Creatinine 1.03 H, Estim Creat Clear Calc 44.86, Est GFR (MDRD) Af Amer 67, Est GFR (MDRD) Non-Af 56 L, BUN/Creatinine Ratio 17.5, Glucose 101, Calcium 9.2, Total Bilirubin 0.70, Direct Bilirubin 0.23, AST 15, ALT 27, Alkaline Phosphatase 79, Total Protein 6.9, Albumin 3.2, Globulin 3.7 03/23/23 06:11: POC Glucose 107 H 03/23/23 10:03: POC Glucose 131 H Micro: Microbiology 03/21/23 10:20 Urine, Clean Catch Urine Culture - Final Presumptive E. coli Physical Exam Const alert, oriented x3, no apparent distress and well nourished Constitutional Narrative: Older white female, sitting up in bed, appears comfortable and nontoxic, mental status is at baseline, nursing at bedside at time Orientation / Consciousness: Negative for confused, disoriented or lethargic HEENT head/scalp atraumatic and moist oral mucous membranes HEENT Narrative: Mallampati 2, no thrush Head and Scalp: normocephalic Resp normal respiratory effort, no retractions, no use of accessory muscles and clearto auscultation bilaterally Auscultation: Negative for rales, rhonchi or wheezes Cardio regular rate, regular rhythm, S1 normal heart sound, S2 normal heart sound, no murmurs, no rub, no gallops and no clicks Cardio Narrative: Irregularly irregular rhythm, mildly tachycardic with heart rates in the 110- 120range GI normal to inspection, nondistended, normoactive bowel sounds, soft to palpation and non-tender Extremity no clubbing, cyanosis or edema Extremity Narrative: Pedal pulses are 2+ Neuro oriented x3, moves all extremities and no focal motor deficits Neuro Narrative: No confusion and mental status appears to be back to baseline, mild generalized weakness but no focal deficits Sensorium / Orientation: awake, alert, oriented to person, oriented to place andoriented to time Speech: speech normal Psych affect normal Psych Narrative: Very pleasant, appropriately interactive Assessment & Plan Assessment/Plan (1) Bradycardia: (2) Syncope: (3) Elevated serum creatinine: (4) Hypoxia: (5) Toxic metabolic encephalopathy: (6) Diastolic dysfunction without heart failure: (7) Sick sinus syndrome: (8) Chronic kidney disease (CKD): (9) E. coli UTI: (10) Hypokalemia: PLAN: Plan Symptomatic bradycardia -Several syncopal episodes prior to admission -Heart rate in the 20s at lowest -Suspect iatrogenic related to her calcium channel rajinder and beta-rajinder -Remains tachycardic with A-fib with RVR but rates improving with up titration of her calcium channel rajinder/beta-rajinder -Unfortunately had further heart rate elevation to the night and amiodarone drip was reinitiated--> we will stop and make adjustments in beta-rajinder today per discussion with cardiology -Echocardiogram showed mild global left ventricular dysfunction with an EF of 45% and at least stage II diastolic dysfunction, severe biatrial enlargement, moderate mitral valve insufficiency, right ventricular systolic pressure 51 mmHg,mild to moderate aortic valve insufficiency, mildly dilated aortic root -Last echocardiogram from 04/11/2019 showed a normal EF at 53% and diastolic dysfunction cannot be estimated due to arrhythmia with atrial fibrillation and moderate mitral valve calcification with stenosis at 1+ insufficiency, pulmonaryartery systolic pressures were 26 mmHg -TSH is within normal limits -Cardiology is following-appreciate input -Per documentation they suspect that she will be able to be controlled with medications only and no pacemaker required at this time -Will need 48-hour Holter monitor at discharge Atrial fibrillation with RVR -Suspect SSS -Continue Cardizem and metoprolol -Cardizem transition to 120 mg p.o. twice daily -Increase metoprolol to 50 mg twice daily (previous home baseline doses [id number] mg p.o. twice daily of metoprolol and 300 mg daily of diltiazem) -Backup pacemaker is not off the table at this point however it sounds as if cardiology is going to hold off currently -Continue Eliquis Hypokalemia -P.o. potassium replacement ordered -Repeat lab in a.m. and check a.m. magnesium level Toxic/metabolic encephalopathy -Suspect multifactorial--> bradycardia, mild cognitive impairment at baseline, UTI, medication induced -Still with some delirium however much improved -Daughter at the bedside today reports some mild cognitive impairment at baseline and forgetfulness but no significant impairment -MRI of the brain done yesterday 03/21/2023 showed no evidence of acute infarct or enhancing intracranial mass but did show chronic involutional and white matter changes and an old left occipital infarct. -Continue Risperdal 1 mg at bedtime -Add respite all 0.5 mg this morning -Overall much improved -I do recommend the patient undergo cognitive testing for memory loss after discharge E. coli UTI -Organism is resistant to ceftriaxone -We will discontinue ceftriaxone and transition to ciprofloxacin 250 mg p.o. twice daily x3 days CKD stage IIIb -Baseline appears to be at 1.2-1.4 as noted previously -Serum creatinine currently 1.03 -Avoid nephrotoxins as able -Continue to monitor Chronic HFpEF-compensated -Likely due to diastolic dysfunction -Continue Lasix -Continue Jardiance and will continue at discharge Hypothyroidism -TSH is within normal limits -Continue levothyroxine DM-2 -Continue Lantus 8 units -SSI before meals and at bedtime -Blood sugars are fairly well controlled with current regimen -Accu-Cheks as ordered -Cardiac/carb controlled diet Hyperlipidemia -Continue statin Hypertension -Continue Lasix -Continue home ARB -Continue beta-rajinder/calcium channel rajinder per cardiology History of mitral valve stenosis with insufficiency -Currently stable Secondary pulmonary hypertension -Suspect who group 2 or 3 -Continue home Lasix -Last echo done in 2018 showed pulmonary artery systolic pressures at 26 mmHg-->worse this echocardiogram showing a right ventricular systolic pressure 51 mmHg History of tobacco abuse -Remote DVT prophylaxis -Continue Eliquis CODE STATUS -full code Charges/Coding Visit Charges Inpatient E&M: 57184 Subs Hosp L2 03/23/23 1202 <Electronically signed by Geeta Michaud DO> Cosigner Signature (if applicable): CC: ~ Signed [facility] Work Phone: 1(264) 504-872006-23-[address] Wynn [facility] March 23, 2023 9:57am Note Date/Time March 23, 2023 9:57 am [facility] Medical Records Department [address] [place] [id number] Progress Note - Cardiology 03/23/23 0955 MR#: [id number] Acct: [id number] Name: AMALIA CORRAL Rep #:[id number] : 1950 72 From: Sharon Wynn MD PCP: Care Physician,No Primary Status :ADM IN Location: [place] [address] Subjective Subjective Ventricular rate still not optimally controlled. Diltiazem increased this morning. Continue on beta-blockers. Objective Data Vital Signs: Vital Signs Temp Pulse Resp BP Pulse Ox O2 Del Method O2 Flow Rate 98.1 F 106 H 16 123/67 H 97 Room Air 2 03/23/23 06:13 03/23/23 06:13 03/23/23 06:13 03/23/23 06:13 03/23/23 07:30 03/23/23 07:30 03/21/23 07:08 FiO2 94 03/21/23 07:08 Oxygen Flow Rate (L/min) 2 Oxygen Delivery Method Room Air Weight: 165 lb 5.547 oz Body Mass Index (BMI) 26.6 Intake & Output: Intake and Output for Last 24 Hours 03/21/23 03/22/23 03/23/23 23:59 23:59 23:59 Intake Total 702.28 / 702.28 1550 / 1650 422.89 / 422.89 Output Total 300 / 300 Balance 402.28 / 402.28 1550 / 1650 422.89 / 422.89 Lab / Micro Data Result Diagrams: 03/23/23 05:57 03/23/23 05:57 Labs: Laboratory Results - last 24 hr 03/22/23 10:04: POC Glucose 137 H 03/22/23 15:53: POC Glucose 99 03/22/23 23:45: POC Glucose 113 H 03/23/23 05:57: WBC 7.3, RBC 3.97 L, Hgb 11.8 L, Hct 35.8 L, MCV 90.2, MCH 29.7,MCHC 33.0, RDW Std Deviation 48.8 H, RDW Coeff of [place] 14.9 H, Plt Count 197, MPV9.4, Immature Gran % (Auto) 0.100, Neut % (Auto) 75.1 H, Lymph % (Auto) 14.7 L, Lassen % (Auto) 9.6, Eos % (Auto) 0.4, Baso % (Auto) 0.1, Absolute Neuts (auto) 5.5, Absolute Lymphs (auto) 1.07, Nucleated RBC % 0 03/23/23 05:57: Sodium 139, Potassium 3.0 L, Chloride 109 H, Carbon Dioxide 20.0L, Anion Gap 10, BUN 18, Creatinine 1.03 H, Estim Creat Clear Calc 44.86, Est GFR (MDRD) Af Amer 67, Est GFR (MDRD) Non-Af 56 L, BUN/Creatinine Ratio 17.5, Glucose 101, Calcium 9.2, Total Bilirubin 0.70, Direct Bilirubin 0.23, AST 15, ALT 27, Alkaline Phosphatase 79, Total Protein 6.9, Albumin 3.2, Globulin 3.7 03/23/23 06:11: POC Glucose 107 H Micro: Microbiology 03/21/23 10:20 Urine, Clean Catch Urine Culture - Final Presumptive E. coli Cardiology Labs/Tests 03/23/23 05:57: WBC 7.3, RBC 3.97 L, Hgb 11.8 L, Hct 35.8 L, MCV 90.2, MCH 29.7,MCHC 33.0, Plt Count 197, MPV 9.4, Immature Gran % (Auto) 0.100, Neut % (Auto) 75.1 H, Lymph % (Auto) 14.7 L, Lassen % (Auto) 9.6, Eos % (Auto) 0.4, Baso % (Auto) 0.1, Absolute Neuts (auto) 5.5, Nucleated RBC % 0 03/23/23 05:57: Sodium 139, Potassium 3.0 L, Chloride 109 H, Carbon Dioxide 20.0L, Anion Gap 10, BUN 18, Creatinine 1.03 H, Est GFR (MDRD) Af Amer 67, Est GFR (MDRD) Non-Af 56 L, BUN/Creatinine Ratio 17.5, Glucose 101, Calcium 9.2, Total Bilirubin 0.70, Direct Bilirubin 0.23 Rhythm: EKG: ECHO: Stress Test: Cardiac Cath: PCI: CT Surgery: Holter monitor: EPS: PPM: CXR: Chest CT Scan: Physical Exam Narrative Comfortable. No apparent distress. Heart sounds 1 and 2 noted. Irregularly irregular. Chest clear to auscultation bilaterally. Alert oriented x3. No ankle edema noted. Assessment & Plan Assessment/Plan (1) Syncope: PLAN: Secondary to symptomatic bradycardia and hypotension. Likely iatrogenic. Resolved with stopping her negative chronotropic medications.. (2) Sick sinus syndrome: PLAN: Atrial fibrillation. Ventricular rate improved but still not optimal. Diltiazem and metoprolol dose increased. Monitor. (3) Persistent atrial fibrillation: PLAN: On Eliquis. See #1 and 2 above. (4) Chronic kidney disease (CKD): PLAN: As per internal medicine. (5) Essential (primary) hypertension: PLAN: Monitor. (6) Diastolic dysfunction without heart failure: PLAN: Started on Lasix. Start on SGLT2 inhibitors. 03/23/23 0957 <Electronically signed by Sharon Wynn MD> Cosigner Signature (if applicable): CC: ~ Signed [facility] Work Phone: 1(660) 479-258606-22-[address] Michaud [facility] March 22, 2023 11:31am Note Date/Time March 22, 2023 11:3 1am [facility] Medical Records Department [address] [place] [address] Progress Note - Hospitalist 03/22/23 1122 MR#: [id number] Acct: [id number] Name: AMALIA CORRAL Rep #:[id number] : 1950 72 From: Geeta Michaud DO PCP: Care Physician,No Primary Status :ADM IN Location: [place] [address] Reason for Visit Reason for Visit: Syncope Subjective Subjective Patient had some mild agitation and confusion last night around 730 but after took her Risperdal she slept well through the night with no further agitation. Mental status seems much improved this morning and daughter who is at the bedside agrees. Her daughter does admit that she does have some baseline mild memory impairment but nothing severe. She still drives and has normal conversations and is able to take care of herself at this point. I did discuss with her the possibility of some mild cognitive impairment at baseline and recommended further testing after discharge to see if there is any signs of early dementia. Heart rates are overall better but still somewhat tachycardic. Cardiology has increased her Cardizem. Physical therapy saw the patient and shewill not be needing any further therapy after discharge. Objective Data Objective Data Vital Signs: Vital Signs Temp Pulse Resp BP Pulse Ox O2 Del Method O2 Flow Rate 97.8 F 88 17 101/73 95 Room Air 2 03/22/23 09:30 03/22/23 10:12 03/22/23 09:30 03/22/23 09:30 03/22/23 09:30 03/22/23 09:30 03/21/23 07:08 FiO2 94 03/21/23 07:08 Oxygen Flow Rate (L/min) 2 Oxygen Delivery Method Room Air Weight: 75.4 kg Body Mass Index (BMI) 26.8 Intake & Output: Intake and Output for Last 24 Hours 03/20/23 03/21/23 03/22/23 23:59 23:59 23:59 Intake Total 549.95 / 549.95 702.28 / 702.28 Output Total 300 / 300 Balance 549.95 / 549.95 402.28 / 402.28 Lab / Micro Data Result Diagrams: 03/22/23 06:41 03/22/23 06:41 Labs: Laboratory Results - last 24 hr 03/21/23 11:05: POC Glucose 235 H 03/21/23 16:31: POC Glucose 138 H 03/22/23 06:41: WBC 7.7, RBC 3.56 L, Hgb 10.7 L, Hct 33.0 L, MCV 92.7, MCH 30.1,MCHC 32.4, RDW Std Deviation 51.8 H, RDW Coeff of [place] 15.1 H, Plt Count 190, MPV9.7, Immature Gran % (Auto) 0.400, Neut % (Auto) 74.5 H, Lymph % (Auto) 13.8 L, Lassen % (Auto) 10.0, Eos % (Auto) 0.9, Baso % (Auto) 0.4, Absolute Neuts (auto) 5.7, Absolute Lymphs (auto) 1.06, Nucleated RBC % 0 03/22/23 06:41: Sodium 142, Potassium 3.5, Chloride 112 H, Carbon Dioxide 21.0, Anion Gap 9, BUN 23 H, Creatinine 1.12 H, Estim Creat Clear Calc 41.25, Est GFR (MDRD) Af Amer 61, Est GFR (MDRD) Non-Af 51 L, BUN/Creatinine Ratio 20.5 H, Glucose 79, Calcium 9.4 03/22/23 06:53: POC Glucose 81 03/22/23 10:04: POC Glucose 137 H Micro: Microbiology 03/21/23 10:20 Urine, Clean Catch Urine Culture - Preliminary Presumptive E. coli Radiography Diagnostic Testing: Radiology Impression Brain MRI 03/21/23 10:18 IMPRESSION: No evidence for acute infarct or enhancing intracranial mass. Chronic involutional and white matter changes. Old left occipital infarct. Electronically Signed: Caro Molina MD at 15:59 EDT , Physical Exam Const alert, oriented x3, no apparent distress and well nourished Constitutional Narrative: Older white female sitting up in bed, daughter and grandson at the bedside, patient's orientation and mental status is much improved today with very minimalconfusion compared to yesterday HEENT head/scalp atraumatic and moist oral mucous membranes HEENT Narrative: Mallampati is 2, no thrush Head and Scalp: normocephalic Resp normal respiratory effort, no retractions, no use of accessory muscles and clearto auscultation bilaterally Auscultation: Negative for rales, rhonchi or wheezes Cardio S1 normal heart sound, S2 normal heart sound, no murmurs, no rub, no gallops andno clicks Cardio Narrative: Irregularly irregular rhythm, mildly tachycardic GI normal to inspection, nondistended, normoactive bowel sounds, soft to palpation and non-tender Extremity no clubbing, cyanosis or edema Extremity Narrative: Pedal pulses are 2+ Neuro oriented x3, moves all extremities and no focal motor deficits Neuro Narrative: Patient is oriented x3 today, still some mild confusion with current events but remembering her family members and overall mental status is significantly better Speech: speech normal Psych affect normal Psych Narrative: Patient with mild confusion, no anxiety at this time, thought processes is much less tangential Assessment & Plan Assessment/Plan (1) Bradycardia: (2) Syncope: (3) Elevated serum creatinine: (4) Hypoxia: (5) Toxic metabolic encephalopathy: (6) Diastolic dysfunction without heart failure: (7) Sick sinus syndrome: (8) Chronic kidney disease (CKD): (9) E. coli UTI: PLAN: Plan Symptomatic bradycardia -Several syncopal episodes prior to admission -Heart rate in the 20s at lowest -Suspect iatrogenic related to her calcium channel rajinder and beta-rajinder -Now tachycardic with A-fib with RVR but rates improving with up titration of her calcium channel rajinder/beta-rajinder -Echocardiogram showed mild global left ventricular dysfunction with an EF of 45% and at least stage II diastolic dysfunction, severe biatrial enlargement, moderate mitral valve insufficiency, right ventricular systolic pressure 51 mmHg, mild to moderate aortic valve insufficiency, mildly dilated aortic root -Last echocardiogram from 04/11/2019 showed a normal EF at 53% and diastolic dysfunction cannot be estimated due to arrhythmia with atrial fibrillation and moderate mitral valve calcification with stenosis at 1+ insufficiency, pulmonaryartery systolic pressures were 26 mmHg -TSH is within normal limits -Cardiology is following-appreciate input -Per documentation they suspect that she will be able to be controlled with medications only and no pacemaker required at this time however that could change Atrial fibrillation with RVR -Suspect SSS -Continue Cardizem and metoprolol -Cardizem was uptitrated slightly today -Backup pacemaker is not off the table at this point however it sounds as if cardiology is going to hold off currently -Continue Eliquis Toxic/metabolic encephalopathy -Suspect multifactorial--> bradycardia, mild cognitive impairment at baseline, UTI, medication induced -Still with some delirium however much improved -Daughter at the bedside today reports some mild cognitive impairment at baseline and forgetfulness but no significant impairment -MRI of the brain done yesterday 03/21/2023 showed no evidence of acute infarct or enhancing intracranial mass but did show chronic involutional and white matter changes and an old left occipital infarct. -Continue Risperdal 1 mg at bedtime -Add respite all 0.5 mg this morning -Overall much improved -I do recommend the patient undergo cognitive testing for memory loss after discharge E. coli UTI -Culture sensitivities are pending -Continue ceftriaxone CKD stage IIIb -Baseline appears to be at 1.2-1.4 as noted previously -Avoid nephrotoxins as able -Continue to monitor Chronic HFpEF-compensated -Likely due to diastolic dysfunction -Continue Lasix -Continue Jardiance and will continue at discharge Hypothyroidism -TSH is within normal limits -Continue levothyroxine DM-2 -Continue Lantus 8 units -SSI before meals and at bedtime -Accu-Cheks as ordered -Cardiac/carb controlled diet Hyperlipidemia -Continue statin Hypertension -Continue Lasix -Continue home ARB -Continue beta-rajinder/calcium channel rajinder per cardiology History of mitral valve stenosis with insufficiency -Currently stable Secondary pulmonary hypertension -Suspect who group 2 or 3 -Continue home Lasix -Last echo done in 2019 showed pulmonary artery systolic pressures at 26 mmHg-->worse this echocardiogram showing a right ventricular systolic pressure 51 mmHg History of tobacco abuse -Remote DVT prophylaxis -Continue Eliquis CODE STATUS -full code Charges/Coding Visit Charges Inpatient E&M: 35669 Subs Hosp L2 03/22/23 1131 <Electronically signed by Geeta Michaud DO> Cosigner Signature (if applicable): CC: ~ Signed [facility] Work Phone: 1(705) 683-408506-22-[address] Wynn [facility] March 22, 2023 10:02am Note Date/Time March 22, 2023 10:0 2am [facility] Medical Records Department [address] [place] [address] Progress Note - Cardiology 03/22/23 0958 MR#: [id number] Acct: [id number] Name: AMALIA CORRAL Rep #:[id number] : 1950 72 From: Sharon Wynn MD PCP: Care Physician,No Primary Status :ADM IN Location: [place] [address] Subjective Subjective Denies any plaints. Heart rate improved but still in the high 90s to low 100s. Objective Data Vital Signs: Vital Signs Temp Pulse Resp BP Pulse Ox O2 Del Method O2 Flow Rate 97.9 F 89 16 121/86 H 91 Room Air 2 03/22/23 04:16 03/22/23 04:16 03/22/23 04:16 03/22/23 04:16 03/22/23 06:48 03/22/23 08:11 03/21/23 07:08 FiO2 94 03/21/23 07:08 Oxygen Flow Rate (L/min) 2 Oxygen Delivery Method Room Air Weight: 166 lb 3.657 oz Body Mass Index (BMI) 26.8 Intake & Output: Intake and Output for Last 24 Hours 03/20/23 03/21/23 03/22/23 23:59 23:59 23:59 Intake Total 549.95 / 549.95 702.28 / 702.28 Output Total 300 / 300 Balance 549.95 / 549.95 402.28 / 402.28 Lab / Micro Data Result Diagrams: 03/22/23 06:41 03/22/23 06:41 Labs: Laboratory Results - last 24 hr 03/21/23 10:20: Urine Color Yellow, Urine Clarity Sl. Cloudy, Urine pH 5.0, Ur Specific [place] 1.015, Urine Protein 30 H, Urine Glucose (UA) 250 H, Urine Ketones 15 H, Urine Occult Blood 150 H, Urine Nitrite Positive H, Urine Bilirubin Negative, Urine Urobilinogen Normal, Ur Leukocyte Esterase 25 H, UrineRBC 10-25 SEEN, Urine WBC 0-5 SEEN, Ur Squamous Epith Cells 0-5 SEEN, Urine Bacteria 1+, Urine Mucus 0 SEEN 03/21/23 11:05: POC Glucose 235 H 03/21/23 16:31: POC Glucose 138 H 03/22/23 06:41: WBC 7.7, RBC 3.56 L, Hgb 10.7 L, Hct 33.0 L, MCV 92.7, MCH 30.1,MCHC 32.4, RDW Std Deviation 51.8 H, RDW Coeff of [place] 15.1 H, Plt Count 190, MPV9.7, Immature Gran % (Auto) 0.400, Neut % (Auto) 74.5 H, Lymph % (Auto) 13.8 L, Lassen % (Auto) 10.0, Eos % (Auto) 0.9, Baso % (Auto) 0.4, Absolute Neuts (auto) 5.7, Absolute Lymphs (auto) 1.06, Nucleated RBC % 0 03/22/23 06:41: Sodium 142, Potassium 3.5, Chloride 112 H, Carbon Dioxide 21.0, Anion Gap 9, BUN 23 H, Creatinine 1.12 H, Estim Creat Clear Calc 41.25, Est GFR (MDRD) Af Amer 61, Est GFR (MDRD) Non-Af 51 L, BUN/Creatinine Ratio 20.5 H, Glucose 79, Calcium 9.4 03/22/23 06:53: POC Glucose 81 Cardiology Labs/Tests 03/21/23 10:20: Urine Color Yellow, Urine Clarity Sl. Cloudy, Urine pH 5.0, Ur Specific [place] 1.015, Urine Protein 30 H, Urine Glucose (UA) 250 H, Urine Ketones 15 H, Urine Occult Blood 150 H, Urine Nitrite Positive H, Urine Bilirubin Negative, Urine Urobilinogen Normal, Ur Leukocyte Esterase 25 H, UrineRBC 10-25 SEEN, Urine WBC 0-5 SEEN 03/22/23 06:41: WBC 7.7, RBC 3.56 L, Hgb 10.7 L, Hct 33.0 L, MCV 92.7, MCH 30.1,MCHC 32.4, Plt Count 190, MPV 9.7, Immature Gran % (Auto) 0.400, Neut % (Auto) 74.5 H, Lymph % (Auto) 13.8 L, Lassen % (Auto) 10.0, Eos % (Auto) 0.9, Baso % (Auto) 0.4, Absolute Neuts (auto) 5.7, Nucleated RBC % 0 03/22/23 06:41: Sodium 142, Potassium 3.5, Chloride 112 H, Carbon Dioxide 21.0, Anion Gap 9, BUN 23 H, Creatinine 1.12 H, Est GFR (MDRD) Af Amer 61, Est GFR (MDRD) Non-Af 51 L, BUN/Creatinine Ratio 20.5 H, Glucose 79, Calcium 9.4 Rhythm: EKG: ECHO: Stress Test: Cardiac Cath: PCI: CT Surgery: Holter monitor: EPS: PPM: CXR: Chest CT Scan: Radiography Diagnostic Testing: Radiology Impression Brain MRI 03/21/23 10:18 IMPRESSION: No evidence for acute infarct or enhancing intracranial mass. Chronic involutional and white matter changes. Old left occipital infarct. Electronically Signed: Caro Molina MD at 15:59 EDT Reading Location ID and State: [facility] / [place] Tel , Service support , Physical Exam Narrative Comfortable. No apparent distress. Heart sounds 1 and 2 noted. Irregularly irregular. Chest clear to auscultation bilaterally. Alert oriented x3. No ankle edema noted. Assessment & Plan Assessment/Plan (1) Syncope: PLAN: Secondary to symptomatic bradycardia and hypotension. Likely iatrogenic. Resolved with stopping her negative chronotropic medications.. (2) Sick sinus syndrome: PLAN: Atrial fibrillation. Ventricular rate improved but still not optimal. Will increase diltiazem to 60 mg every 6 hours. (3) Persistent atrial fibrillation: PLAN: On Eliquis. See #1 and 2 above. (4) Chronic kidney disease (CKD): PLAN: As per internal medicine. (5) Essential (primary) hypertension: PLAN: Monitor. (6) Diastolic dysfunction without heart failure: PLAN: Started on Lasix. Start on SGLT2 inhibitors. 03/22/23 1002 <Electronically signed by Sharon Wynn MD> Cosigner Signature (if applicable): CC: ~ Signed [facility] Work Phone: 1(412) 508-241906-21-[address] Michaud [facility] March 21, 2023 12:11pm Note Date/Time March 21, 2023 12:1 [facility] [address] [place] [address] Progress Note - Hospitalist 03/21/23 1156 MR#: [id number] Acct: [id number] Name: AMALIA CORRAL Rep #:[id number] : 1950 72 From: Geeta Michaud DO PCP: Care Physician,No Primary Status :ADM IN Location: [place] [address] Reason for Visit Reason for Visit: Syncope Subjective Subjective Patient with marked confusion and agitation overnight. Per discussion with her family who is at the bedside today she does not have any dementia or memory issues at baseline and her behaviors and memory issues while she is hospitalizedare completely new. They have talked to her on the phone over the last 4 years but not seen her in person as she was living in [place]. They had no concerningphone conversations with her during that time. That would lead them to believe she was having any issues with dementia or memory loss. Patient also developed RVR overnight. She was placed on amiodarone drip and cardiology has since restarted some beta-rajinder on her. Objective Data Objective Data Vital Signs: Vital Signs Temp Pulse Resp BP Pulse Ox O2 Del Method O2 Flow Rate 98 F 139 H 24 H 158/72 H 97 Room Air 2 03/21/23 06:58 03/21/23 11:00 03/21/23 11:00 03/21/23 11:00 03/21/23 11:00 03/21/23 11:00 03/21/23 07:08 FiO2 94 03/21/23 07:08 Oxygen Flow Rate (L/min) 2 Oxygen Delivery Method Room Air Weight: 80.5 kg Body Mass Index (BMI) 28.6 Intake & Output: Intake and Output for Last 24 Hours 03/19/23 03/20/23 03/21/23 23:59 23:59 23:59 Intake Total 411.86 / 427.36 549.95 / 549.95 245.10 / 245.10 Balance 411.86 / 427.36 549.95 / 549.95 245.10 / 245.10 Lab / Micro Data Result Diagrams: 03/21/23 05:49 03/21/23 05:49 Labs: Laboratory Results - last 24 hr 03/20/23 10:43: POC Glucose 123 H 03/20/23 16:08: POC Glucose 152 H 03/21/23 05:49: WBC 10.2, RBC 3.78 L, Hgb 11.3 L, Hct 34.3 L, MCV 90.7, MCH 29.9, MCHC 32.9, RDW Std Deviation 49.8 H, RDW Coeff of [place] 15.1 H, Plt Count 210, MPV 9.7, Immature Gran % (Auto) 0.600, Neut % (Auto) 75.8 H, Lymph % (Auto)14.1 L, Lassen % (Auto) 9.1, Eos % (Auto) 0.1, Baso % (Auto) 0.3, Absolute Neuts (auto) 7.7, Absolute Lymphs (auto) 1.43, Nucleated RBC % 0 03/21/23 05:49: Sodium 140, Potassium 3.7, Chloride 111 H, Carbon Dioxide 17.0 L, Anion Gap 12, BUN 33 H, Creatinine 1.26 H, Estim Creat Clear Calc 36.67, Est GFR (MDRD) Af Amer 53 L, Est GFR (MDRD) Non-Af 44 L, BUN/Creatinine Ratio 26.2 H, Glucose 171 H, Calcium 9.9 03/21/23 06:57: POC Glucose 178 H 03/21/23 10:20: Urine Color Yellow, Urine Clarity Sl. Cloudy, Urine pH 5.0, Ur Specific [place] 1.015, Urine Protein 30 H, Urine Glucose (UA) 250 H, Urine Ketones 15 H, Urine Occult Blood 150 H, Urine Nitrite Positive H, Urine Bilirubin Negative, Urine Urobilinogen Normal, Ur Leukocyte Esterase 25 H, UrineRBC 10-25 SEEN, Urine WBC 0-5 SEEN, Ur Squamous Epith Cells 0-5 SEEN, Urine Bacteria 1+, Urine Mucus 0 SEEN 03/21/23 11:05: POC Glucose 235 H Physical Exam Const alert, no apparent distress and well nourished Constitutional Narrative: Older white female sitting up in a chair at the bedside, multiple family membersincluding her siblings present at the bedside, patient is confused and only oriented to self Orientation / Consciousness: confused HEENT head/scalp atraumatic and moist oral mucous membranes HEENT Narrative: Dentition is fair for age, Mallampati is 2-3, no thrush Head and Scalp: normocephalic Eyes PERRL, EOMs intact bilaterally and conjunctivae normal Eyes Narrative: No scleral icterus Neck no lymphadenopathy and supple Neck Narrative: Trachea midline, no thyroid enlargement Resp normal respiratory effort, no retractions, no use of accessory muscles and clearto auscultation bilaterally Auscultation: Negative for rales, rhonchi or wheezes Cardio regular rhythm, S1 normal heart sound, S2 normal heart sound, no murmurs, no rub, no gallops and no clicks Cardio Narrative: Irregularly irregular rhythm, tachycardic GI normal to inspection, nondistended, normoactive bowel sounds, soft to palpation and non-tender Extremity no clubbing, cyanosis or edema Extremity Narrative: Pedal pulses Skin no wounds, skin turgor normal, no jaundice, no petechiae and no mottling Skin Narrative: Ecchymosis in area of left antecubital IV consistent with bruising Neuro CN's II-XII intact bilaterally, moves all extremities and no focal motor deficits Neuro Narrative: Oriented to self only, strength is 4 approximately bilateral lower extremities 4+ proximally bilateral lower extremities and 5 distal upper and lower extremities Sensorium / Orientation: awake, alert and oriented to person Speech: speech normal Psych Psych Narrative: Patient with significant confusion, seems to be somewhat anxious, thought processes tangential Assessment & Plan Assessment/Plan (1) Bradycardia: (2) Syncope: (3) Elevated serum creatinine: (4) Hypoxia: (5) Toxic metabolic encephalopathy: (6) Diastolic dysfunction without heart failure: (7) Sick sinus syndrome: (8) Chronic kidney disease (CKD): PLAN: Plan Symptomatic bradycardia -Several syncopal episodes prior to admission -Heart rate in the 20s at lowest -Suspect iatrogenic related to her calcium channel rajinder and beta-rajinder -Off dopamine drip -Now tachycardic with A-fib with RVR -Echocardiogram shows mild global left ventricular dysfunction with an EF of 45%and at least stage II diastolic dysfunction, severe biatrial enlargement, moderate mitral valve insufficiency, right ventricular systolic pressure 51 mmHg, mild to moderate aortic valve insufficiency, mildly dilated aortic root -Last echocardiogram from 04/11/2019 showed a normal EF at 53% and diastolic dysfunction cannot be estimated due to arrhythmia with atrial fibrillation and moderate mitral valve calcification with stenosis at 1+ insufficiency, pulmonaryartery systolic pressures were 26 mmHg -TSH is within normal limits -Cardiology is following Atrial fibrillation with RVR -Suspect SSS -Amiodarone bolus and drip started overnight -Plan is to discontinue amiodarone and restart low-dose beta-rajinder and calciumchannel rajinder -It does appear that cardiology feels she may need a backup pacemaker with her history of significant bradycardia at higher doses of her medication -Continue Eliquis -Wait further input from cardiology Toxic/metabolic encephalopathy -Patient with significant delirium through the night -Patient does not have memory impairment at baseline as far as anyone is aware of -We will check MRI of the brain -Start Risperdal 1 mg at at bedtime -Discontinue Haldol -Would avoid antihistamines Possible UTI -Urine culture was obtained earlier this morning -Does have nitrates and leuk esterase with bacteria and small amount of white cells -Check urine culture -Start ceftriaxone 1 g every 24 hours Hypoxia -Resolved SUNNY on CKD stage IIIb -SUNNY has resolved -Baseline appears to be at 1.2-1.4 as noted previously -Creatinine admission was 2.02 with current creatinine at 1.26 -Avoid nephrotoxins as able -Continue to monitor HFpEF -Likely due to diastolic dysfunction -Restart Lasix -Jardiance initiated by cardiology today Hypothyroidism -TSH is within normal limits -Continue levothyroxine DM-2 -Continue Lantus 8 units -SSI before meals and at bedtime -Accu-Cheks as ordered -Cardiac/carb controlled diet Hyperlipidemia -Continue statin Hypertension -Restart home Lasix next-restart home ARB -Beta-rajinder/calcium channel rajinder per cardiology History of mitral valve stenosis with insufficiency -Echocardiogram is pending Secondary pulmonary hypertension -Suspect who group 2 or 3 -Start diuresis -Last echo done in 2018 showed pulmonary artery systolic pressures at 26 mmHg-->worse this echocardiogram showing a right ventricular systolic pressure 51 mmHg History of tobacco abuse -Remote DVT prophylaxis -Continue Eliquis CODE STATUS -full code Charges/Coding Visit Charges Inpatient E&M: 62749 Subs Hosp L3 03/21/23 1211 <Electronically signed by Geeta Michaud DO> Cosigner Signature (if applicable): CC: ~ Signed [facility] Work Phone: 1(837) 725-502006-21-[address] Wynn [facility] March 21, 2023 10:14am Note Date/Time March 21, 2023 10:1 4am [facility] Medical Records Department [address] [place] [address] Progress Note - Cardiology 03/21/23 1007 MR#: [id number] Acct: [id number] Name: AMALIA CORRAL Rep #:[id number] : 1950 72 From: Sharon Wynn MD PCP: Care Physician,No Primary Status :ADM IN Location: [place] [address] Subjective Subjective Denies any complaints. Overnight she was started on amiodarone for rapid ventricular response with her atrial fibrillation. Objective Data Vital Signs: Vital Signs Temp Pulse Resp BP Pulse Ox O2 Del Method O2 Flow Rate 98 F 123 H 26 H 123/78 H 96 Room Air 2 03/21/23 06:58 03/21/23 09:00 03/21/23 09:00 03/21/23 09:00 03/21/23 09:00 03/21/23 09:00 03/21/23 07:08 FiO2 94 03/21/23 07:08 Oxygen Flow Rate (L/min) 2 Oxygen Delivery Method Room Air Weight: 177 lb 7.554 oz Body Mass Index (BMI) 28.6 Intake & Output: Intake and Output for Last 24 Hours 03/19/23 03/20/23 03/21/23 23:59 23:59 23:59 Intake Total 411.86 / 427.36 549.95 / 549.95 178.50 / 178.50 Balance 411.86 / 427.36 549.95 / 549.95 178.50 / 178.50 Lab / Micro Data Result Diagrams: 03/21/23 05:49 03/21/23 05:49 Labs: Laboratory Results - last 24 hr 03/20/23 10:43: POC Glucose 123 H 03/20/23 16:08: POC Glucose 152 H 03/21/23 05:49: WBC 10.2, RBC 3.78 L, Hgb 11.3 L, Hct 34.3 L, MCV 90.7, MCH 29.9, MCHC 32.9, RDW Std Deviation 49.8 H, RDW Coeff of [place] 15.1 H, Plt Count 210, MPV 9.7, Immature Gran % (Auto) 0.600, Neut % (Auto) 75.8 H, Lymph % (Auto)14.1 L, [place] % (Auto) 9.1, Eos % (Auto) 0.1, Baso % (Auto) 0.3, Absolute Neuts (auto) 7.7, Absolute Lymphs (auto) 1.43, Nucleated RBC % 0 03/21/23 05:49: Sodium 140, Potassium 3.7, Chloride 111 H, Carbon Dioxide 17.0 L, Anion Gap 12, BUN 33 H, Creatinine 1.26 H, Estim Creat Clear Calc 36.67, Est GFR (MDRD) Af Amer 53 L, Est GFR (MDRD) Non-Af 44 L, BUN/Creatinine Ratio 26.2 H, Glucose 171 H, Calcium 9.9 03/21/23 06:57: POC Glucose 178 H Cardiology Labs/Tests 03/21/23 05:49: WBC 10.2, RBC 3.78 L, Hgb 11.3 L, Hct 34.3 L, MCV 90.7, MCH 29.9, MCHC 32.9, Plt Count 210, MPV 9.7, Immature Gran % (Auto) 0.600, Neut % (Auto) 75.8 H, Lymph % (Auto) 14.1 L, [place] % (Auto) 9.1, Eos % (Auto) 0.1, Baso % (Auto) 0.3, Absolute Neuts (auto) 7.7, Nucleated RBC % 0 03/21/23 05:49: Sodium 140, Potassium 3.7, Chloride 111 H, Carbon Dioxide 17.0 L, Anion Gap 12, BUN 33 H, Creatinine 1.26 H, Est GFR (MDRD) Af Amer 53 L, Est GFR (MDRD) Non-Af 44 L, BUN/Creatinine Ratio 26.2 H, Glucose 171 H, Calcium 9.9 Rhythm: EKG: ECHO: Stress Test: Cardiac Cath: PCI: CT Surgery: Holter monitor: EPS: PPM: CXR: Chest CT Scan: Radiography Diagnostic Testing: Radiology Impression Echocardiogram 03/19/23 21:15 Interpretation Summary Mild global left ventricular systolic dysfunction. The left ventricular ejection fraction is 45 %. At least stage 2 diastolic dysfunction. The left atrium is severely enlarged. The right atrium is moderately enlarged. Moderately severe (3+) eccentric mitral valve insufficiency. Moderate (2+) tricuspid valve insufficiency. Right ventricular systolic pressure estimated to be 51 mmHg. Mild-Moderate (1-2+) aortic valve insufficiency. Mildly dilated aortic root. Ordering Physician: Ricco Rod Performed By: Scotty Love RCS Physical Exam Narrative Comfortable. No apparent distress. Heart sounds 1 and 2 noted. Irregularly irregular. Chest clear to auscultation bilaterally. Alert oriented x3. No ankle edema noted. Assessment & Plan Assessment/Plan (1) Syncope: PLAN: Secondary to symptomatic bradycardia and hypotension. Likely iatrogenic. Resolved with stopping her negative chronotropic medications.. (2) Sick sinus syndrome: PLAN: Presently with rapid ventricular response with her atrial fibrillation. Will reintroduce beta-blockers at a lower dose. Stop amiodarone. Start calciumchannel blockers at a low dose as well. If the patient's heart rate would not be controlled with low-dose beta-blockers and calcium channel blockers, then shewill probably need a backup pacemaker because of her history of significant bradycardia with higher doses of medications. (3) Persistent atrial fibrillation: PLAN: On Eliquis. See #1 and 2 above. (4) Chronic kidney disease (CKD): PLAN: As per internal medicine. (5) Essential (primary) hypertension: PLAN: Monitor. (6) Diastolic dysfunction without heart failure: PLAN: Start on Lasix. Start on SGLT2 inhibitors. 03/21/23 1014 <Electronically signed by Sharon Wynn MD> Cosigner Signature (if applicable): CC: ~ Signed [facility] Work Phone: 1(212) 562-261706-20-[address] Michaud [facility] March 20, 2023 1:04pm Note Date/Time March 20, 2023 7:25 am [facility] Medical Records Department [facility] [place] [address] [address] Progress Note - Hospitalist 03/20/23 0715 MR#: [id number] Acct: [id number] Name: AMALIA CORRAL Rep #:[id number] : 1950 72 From: Geeta Michaud DO PCP: Care Physician,No Primary Status :ADM IN Location: ICU ICU-1 Reason for Visit Reason for Visit: Syncope Subjective Subjective Mrs. Corral is a 72-year-old white female who presented to emergency department at [facility] on 03/19/2023 via private vehicle due tosyncopal episodes that were occurring at home. She had a syncopal episode in the triage area and her heart rate was noted to be in the 20s at that time. Shewas immediately brought back to a room and placed in Trendelenburg position witha noted blood pressure of 66 systolic and a heart rate in the low 30s. Family reported that she was complaining of some chest pressure and not feeling well about 15 minutes before they arrived. Once the patient was more awake she indicated she not been feeling well all day and was having some intermittent chest pressure. The patient does have a noted history of atrial fibrillation and had been living in [place] up until recently (4 days ago). She was noted medhat on diltiazem and metoprolol for her history of atrial fibrillation. She takes apixaban and has not missed any doses. Pacer pads were placed immediatelyand she was given atropine with no response in her heart rate. IV fluids were given and she was given half amp of epinephrine with improvement in her heart rate and blood pressure. Heart rate did drop back down once epinephrine startedto wear off with heart rates in the 40s and hypotension as well and she was initiated on epinephrine drip. The case was discussed with the on-call circuit breaker mechanic for the ER and they recommended transitioning her from epinephrine to dopamine. She was given calcium gluconate as well. Her rate limiting medications were held on admission and she was admitted to the ICU. At this time cardiology consult and echocardiogram are pending. Objective Data Objective Data Vital Signs: Vital Signs Temp Pulse Resp BP Pulse Ox O2 Del Method O2 Flow Rate 98.8 F 93 20 H 115/99 H 94 Nasal Cannula 4 03/20/23 04:00 03/20/23 07:00 03/20/23 05:00 03/20/23 05:00 03/20/23 05:00 03/20/23 05:00 03/20/23 05:00 Oxygen Flow Rate (L/min) 4 Oxygen Delivery Method Nasal Cannula Weight: 80 kg Body Mass Index (BMI) 28.3 Intake & Output: Intake and Output for Last 24 Hours 03/18/23 03/19/23 03/20/23 23:59 23:59 23:59 Intake Total 411.86 / 427.36 104.51 / 104.51 Balance 411.86 / 427.36 104.51 / 104.51 Lab / Micro Data Result Diagrams: 03/20/23 05:05 03/20/23 05:05 Labs: Laboratory Results - last 24 hr 03/19/23 18:42: WBC 9.4, RBC 3.95 L, Hgb 11.8 L, Hct 37.4, MCV 94.7, MCH 29.9, MCHC 31.6 L, RDW Std Deviation 53.3 H, RDW Coeff of [place] 15.5 H, Plt Count 230, MPV 10.1, Immature Gran % (Auto) 0.500, Neut % (Auto) 61.1, Lymph % (Auto) 27.8,Lassen % (Auto) 8.9, Eos % (Auto) 1.1, Baso % (Auto) 0.6, Absolute Neuts (auto) 5.7, Absolute Lymphs (auto) 2.60, Nucleated RBC % 0 03/19/23 18:42: Sodium 137, Potassium 5.2 H, Chloride 109 H, Carbon Dioxide 18.0L, Anion Gap 10, BUN 40 H, Creatinine 2.02 H, Estim Creat Clear Calc 21.99, Est GFR (MDRD) Af Amer 31 L, Est GFR (MDRD) Non-Af 26 L, BUN/Creatinine Ratio 19.8, Glucose 205 H, Calcium 9.3, Troponin I High Sens 20 03/19/23 18:44: POC Glucose 185 H 03/19/23 21:30: Troponin I High Sens 27 03/19/23 23:26: POC Glucose 197 H 03/20/23 05:05: WBC 12.2 H, RBC 3.73 L, Hgb 11.3 L, Hct 34.5 L, MCV 92.5, MCH 30.3, MCHC 32.8, RDW Std Deviation 50.9 H, RDW Coeff of [place] 15.0 H, Plt Count 214, MPV 9.5, Immature Gran % (Auto) 0.500, Neut % (Auto) 76.1 H, Lymph % (Auto)10.9 L, [place] % (Auto) 12.2 H, Eos % (Auto) 0.0, Baso % (Auto) 0.3, Absolute Neuts (auto) 9.3 H, Absolute Lymphs (auto) 1.33, Nucleated RBC % 0 03/20/23 05:05: Sodium 141, Potassium 4.7, Chloride 113 H, Carbon Dioxide 18.0 L, Anion Gap 10, BUN 42 H, Creatinine 1.87 H, Estim Creat Clear Calc 24.71, Est GFR (MDRD) Af Amer 34 L, Est GFR (MDRD) Non-Af 28 L, BUN/Creatinine Ratio 22.5 H, Glucose 180 H, Calcium 9.2, Magnesium 1.7, TSH 1.17 03/20/23 05:05: Phosphorus 3.7 Radiography Diagnostic Testing: Radiology Impression Chest X-Ray 03/19/23 20:05 IMPRESSION: 1. No radiographic evidence of acute cardiopulmonary disease. Electronically Signed: Sal Donaldson DO at 20:33 EDT , Physical Exam Const alert, oriented x3, no apparent distress and well nourished Constitutional Narrative: Older white female lying in bed, physics technician at bedside finishing echocardiogram, patient appears comfortable at this time, nontoxic HEENT head/scalp atraumatic HEENT Narrative: Dentition is fair for age, Mallampati is 2, no thrush, mucous membranes are slightly dry Resp normal respiratory effort, no retractions, no use of accessory muscles and clearto auscultation bilaterally Auscultation: Negative for rales, rhonchi or wheezes Cardio regular rate, S1 normal heart sound, S2 normal heart sound, no murmurs, no rub, no gallops and no clicks Cardio Narrative: Irregularly irregular rhythm GI normal to inspection, nondistended, normoactive bowel sounds and soft to palpation Extremity no clubbing, cyanosis or edema Extremity Narrative: Pedal pulses Neuro oriented x3, moves all extremities and no focal motor deficits Speech: speech normal Psych Psych Narrative: Affect is slightly flat however eye contact is good and mood seems to be appropriate given situation Assessment & Plan Assessment/Plan (1) Bradycardia: (2) Syncope: (3) Elevated serum creatinine: (4) Hypoxia: PLAN: Plan Symptomatic bradycardia -Several syncopal episodes prior to admission -Heart rate in the 20s at lowest -Now on dopamine drip and heart rates are 70-90--> slowly being weaned to keep heart rate greater than 70 per cardiology instructions -No new medications -Continue to hold Cardizem and metoprolol -Echocardiogram pending -Last echocardiogram from 04/11/2019 showed a normal EF at 53% and diastolic dysfunction cannot be estimated due to arrhythmia with atrial fibrillation and moderate mitral valve calcification with stenosis at 1+ insufficiency, pulmonaryartery systolic pressures were 26 mmHg -TSH is within normal limits -Cardiology consult pending Hypoxia -Patient is currently on 4 L nasal cannula with oxygen saturations anywhere from94 to 96% -Etiology is unclear at this time -Echocardiogram is pending -Wean oxygen as able -Chest x-ray is unremarkable Elevated serum creatinine on CKD -Baseline is unclear -Baseline serum creatinine from 2019 appears to be between 1.2 and 1.4 -Creatinine admission was 2.02 with current creatinine at 1.87 -We will follow trend and see if we can establish her current baseline -Avoid nephrotoxins as able -Continue to monitor Persistent atrial fibrillation -Came in with bradycardia -Could be sick sinus syndrome versus medication effect -Continue to monitor on telemetry -Hold rate controlling medications given bradycardia -Continue Eliquis Hypothyroidism -TSH is within normal limits -Continue levothyroxine DM-2 -Continue Lantus 8 units -Monitor closely as patient is currently n.p.o. but a.m. fasting blood [id number] -SSI every 6 -Accu-Cheks as ordered -We will start diet if it does not appear that any intervention will be performed today Hyperlipidemia -Continue statin Hypertension -Hypotensive with her bradycardia -Pressures are now better with improved heart rate however we will continue to hold all antihypertensives History of mitral valve stenosis with insufficiency -Echocardiogram is pending Secondary pulmonary hypertension -Suspect who group 2 or 3 -Diuresis currently on hold -We will restart when appropriate -Last echo done in 2018 showed pulmonary artery systolic pressures at 26 mmHg History of tobacco abuse -Remote DVT prophylaxis -Continue Eliquis CODE STATUS -full code Charges/Coding Visit Charges Inpatient E&M: 50525 Subs Hosp L2 03/20/23 1304 <Electronically signed by Geeta Michaud DO> Cosigner Signature (if applicable): CC: ~ Signed [facility] Work Phone: 1(400) 719-876806-20-[address] Wynn [facility] March 20, 2023 9:06am Note Date/Time March 20, 2023 9:06 am [facility] Medical Records Department [address] [place] [address] Consultation - Cardiology 03/20/23 0901 MR#: [id number] Acct: [id number] Name: AMALIA CORRAL Rep #:[id number] : 1950 72 From: Sharon Wynn MD PCP: Care Physician,No Primary Status :ADM IN Location: ICU ICU07-1 Assessment & Plan Assessment/Plan (1) Syncope: PLAN: Secondary to symptomatic bradycardia and hypotension. Likely iatrogenic. Stop calcium channel rajinder. Hold beta-blockers. (2) Bradycardia: PLAN: Underlying rhythm atrial fibrillation. Symptomatic bradycardia with syncope. Stop calcium channel blockers. Hold beta-blockers. Patient's heart rate better this morning. Try to wean off dopamine. If needed, will reintroduce beta-blockers and/or calcium channel blockers at a lower dose and see the response. (3) Chronic kidney disease (CKD): PLAN: As per internal medicine. (4) Essential (primary) hypertension: PLAN: Monitor. (5) Persistent atrial fibrillation: PLAN: On Eliquis. See #1 and 2 above. HPI Consult Data Date of Consult: 03/20/23 HPI Narrative Reason for Consultation: Syncope HPI Narrative: Patient has history of diabetes mellitus, dyslipidemia, hypertension and permanent atrial fibrillation. She presented to the emergency room with complaints of multiple syncopal episodes at home. She complained of lightheadedness nausea vomiting and weakness with these syncopal episodes. No chest pain. In the emergency room triage, she had another syncopal episodes. Her heart rate was noted to be in the 20s and blood pressure in the 60s. She was resuscitated with epinephrine. She became asymptomatic after her heart ratecame up and blood pressure improved. Please note that the patient was on diltiazem extended release 300 mg once dailyand metoprolol 150 mg twice daily at home. [facility] Medical History (Updated 03/20/23 @ 09:[address] Sharon Wynn MD) Chronic diastolic (congestive) heart failure Chronic kidney disease (CKD) Essential (primary) hypertension Hyperlipidemia Incomplete left bundle branch block (LBBB) Nonrheumatic mitral valve stenosis with insufficiency Nonrheumatic tricuspid (valve) insufficiency Obesity Persistent atrial fibrillation Secondary pulmonary arterial hypertension Type 2 diabetes mellitus Home Medications insulin detemir U-100 100 unit/mL (3 mL) subcutaneous pen 8 unit subcut DAILY 03/26/18 [History Last Taken Unknown] levothyroxine 25 mcg tablet 25 mcg PO QDAY 03/26/18 [History Last Taken Unknown] metformin 500 mg tablet 500 mg PO BID 03/26/18 [History Last Taken Unknown] apixaban 5 mg tablet (Eliquis) 5 mg PO BID #60 tabs 03/09/20 [Rx Last Taken Unknown] diltiazem HCl 300 mg capsule,extended release 24 hr 300 mg PO QDAY #90 caps 04/13/20 [Rx Last Taken Unknown] cyanocobalamin (vitamin B-12) 1,000 mcg tablet (Vitamin B-12) 1,000 mcg PO DAILY03/19/23 [History Last Taken Unknown] furosemide 20 mg tablet 20 mg PO BID 03/19/23 [History Last Taken Unknown] metoprolol tartrate 100 mg tablet 150 mg PO BID 03/19/23 [History Last Taken Unknown] olmesartan 20 mg tablet 10 mg PO DAILY 03/19/23 [History Last Taken Unknown] rosuvastatin 10 mg tablet 10 mg PO DAILY 03/19/23 [History Last Taken Unknown] Allergy/AdvReac Type Severity Reaction Status Date / Time MARCO Inhibitors AdvReac Cough Verified 03/19/23 18:45 Family History Mother CAD (coronary artery disease) Brother , Age 65 [place] CAD (coronary artery disease) Atrial fibrillation Myocardial infarction Father , in MVA No problems noted. Surgical History History of cholecystectomy S/P ALY (total abdominal hysterectomy) Social History Smoking Status: Former smoker how long ago did patient quit smoking: greater than 20 years alcohol intake: never Physical Exam Narrative Comfortable. No apparent distress. Heart sounds 1 and 2 noted. Irregularly irregular. Chest clear to auscultation bilaterally. Alert oriented x3. No ankle edema noted. Risk Stratification Risk Stratification Applicable: No Objective Data Vital Signs: Vital Signs Temp Pulse Resp BP Pulse Ox O2 Del Method O2 Flow Rate 98.8 F 85 20 H 120/63 94 Nasal Cannula 4 03/20/23 04:00 03/20/23 08:35 03/20/23 05:00 03/20/23 08:35 03/20/23 05:00 03/20/23 05:00 03/20/23 05:00 Oxygen Flow Rate (L/min) 4 Oxygen Delivery Method Nasal Cannula Weight: 176 lb 5.917 oz Body Mass Index (BMI) 28.3 Intake & Output: Intake and Output for Last 24 Hours 03/18/23 03/19/23 03/20/23 23:59 23:59 23:59 Intake Total 411.86 / 427.36 116.70 / 116.70 Balance 411.86 / 427.36 116.70 / 116.70 Lab / Micro Data Result Diagrams: 03/20/23 05:05 03/20/23 05:05 Labs: Laboratory Results - last 24 hr 03/19/23 18:42: WBC 9.4, RBC 3.95 L, Hgb 11.8 L, Hct 37.4, MCV 94.7, MCH 29.9, MCHC 31.6 L, RDW Std Deviation 53.3 H, RDW Coeff of [place] 15.5 H, Plt Count 230, MPV 10.1, Immature Gran % (Auto) 0.500, Neut % (Auto) 61.1, Lymph % (Auto) 27.8,Lassen % (Auto) 8.9, Eos % (Auto) 1.1, Baso % (Auto) 0.6, Absolute Neuts (auto) 5.7, Absolute Lymphs (auto) 2.60, Nucleated RBC % 0 03/19/23 18:42: Sodium 137, Potassium 5.2 H, Chloride 109 H, Carbon Dioxide 18.0L, Anion Gap 10, BUN 40 H, Creatinine 2.02 H, Estim Creat Clear Calc 21.99, Est GFR (MDRD) Af Amer 31 L, Est GFR (MDRD) Non-Af 26 L, BUN/Creatinine Ratio 19.8, Glucose 205 H, Calcium 9.3, Troponin I High Sens 20 03/19/23 18:44: POC Glucose 185 H 03/19/23 21:30: Troponin I High Sens 27 03/19/23 23:26: POC Glucose 197 H 03/20/23 05:05: WBC 12.2 H, RBC 3.73 L, Hgb 11.3 L, Hct 34.5 L, MCV 92.5, MCH 30.3, MCHC 32.8, RDW Std Deviation 50.9 H, RDW Coeff of [place] 15.0 H, Plt Count 214, MPV 9.5, Immature Gran % (Auto) 0.500, Neut % (Auto) 76.1 H, Lymph % (Auto)10.9 L, Lassen % (Auto) 12.2 H, Eos % (Auto) 0.0, Baso % (Auto) 0.3, Absolute Neuts (auto) 9.3 H, Absolute Lymphs (auto) 1.33, Nucleated RBC % 0 03/20/23 05:05: Sodium 141, Potassium 4.7, Chloride 113 H, Carbon Dioxide 18.0 L, Anion Gap 10, BUN 42 H, Creatinine 1.87 H, Estim Creat Clear Calc 24.71, Est GFR (MDRD) Af Amer 34 L, Est GFR (MDRD) Non-Af 28 L, BUN/Creatinine Ratio 22.5 H, Glucose 180 H, Calcium 9.2, Magnesium 1.7, TSH 1.17 03/20/23 05:05: Phosphorus 3.7 Cardiology Labs/Tests 03/19/23 18:42: WBC 9.4, RBC 3.95 L, Hgb 11.8 L, Hct 37.4, MCV 94.7, MCH 29.9, MCHC 31.6 L, Plt Count 230, MPV 10.1, Immature Gran % (Auto) 0.500, Neut % (Auto) 61.1, Lymph % (Auto) 27.8, Lassen % (Auto) 8.9, Eos % (Auto) 1.1, Baso % (Auto) 0.6, Absolute Neuts (auto) 5.7, Nucleated RBC % 0 03/19/23 18:42: Sodium 137, Potassium 5.2 H, Chloride 109 H, Carbon Dioxide 18.0L, Anion Gap 10, BUN 40 H, Creatinine 2.02 H, Est GFR (MDRD) Af Amer 31 L, Est GFR (MDRD) Non-Af 26 L, BUN/Creatinine Ratio 19.8, Glucose 205 H, Calcium 9.3 03/20/23 05:05: WBC 12.2 H, RBC 3.73 L, Hgb 11.3 L, Hct 34.5 L, MCV 92.5, MCH 30.3, MCHC 32.8, Plt Count 214, MPV 9.5, Immature Gran % (Auto) 0.500, Neut % (Auto) 76.1 H, Lymph % (Auto) 10.9 L, Lassen % (Auto) 12.2 H, Eos % (Auto) 0.0, Baso % (Auto) 0.3, Absolute Neuts (auto) 9.3 H, Nucleated RBC % 0 03/20/23 05:05: Sodium 141, Potassium 4.7, Chloride 113 H, Carbon Dioxide 18.0 L, Anion Gap 10, BUN 42 H, Creatinine 1.87 H, Est GFR (MDRD) Af Amer 34 L, Est GFR (MDRD) Non-Af 28 L, BUN/Creatinine Ratio 22.5 H, Glucose 180 H, Calcium 9.2,Magnesium 1.7 03/20/23 05:05: Phosphorus 3.7 Rhythm: EKG: ECHO: Stress Test: Cardiac Cath: PCI: CT Surgery: Holter monitor: EPS: PPM: CXR: Chest CT Scan: Radiography Diagnostic Testing: Radiology Impression Chest X-Ray 03/19/23 20:05 IMPRESSION: 1. No radiographic evidence of acute cardiopulmonary disease. Electronically Signed: Sal Donaldson DO at 20:33 EDT , 03/20/23 0906 <Electronically signed by Sharon Wynn MD> Cosigner Signature (if applicable): CC: Dr. Sharon Wynn MD; Dr. Ricco Rod MD; No Primary Care Physician~ Signed [facility] Work Phone: 1(186) 198-463906-20-2023 History and physical note Author Dr. Rod [facility] March 20, 2023 7:32am Note Date/Time March 19, 2023 8:28 pm [facility] Medical Records Department [address] [place] [address] H&P Exam - Hospitalist 03/19/232027 MR#: [id number] Acct: [id number] Name: AMALIA CORRAL Rep #:[id number] : 1950 72 From: Ricco Rod MD PCP: Care Physician,No Primary Status :ADM IN Location: ICU ICU-1 HPI - General General Date of Admission: 03/19/23 Date of Service: 03/19/23 Chief Complaint: Syncope HPI Narrative AMALIA CORRAL, is a 72 F with a significant history of hypothyroidism; atrial fibrillation; and hypertension who presents emergency department with multiple episodes of syncope on the same day of presentation. Associated with her symptoms is lightheadedness, nausea, vomiting, blurry vision and malaise. At the triage of the emergency department patient's passed out and her heart rate was in the 20s. At the emergency department initially systolic blood pressure was in the 60s and heart rate was in the 30s. Patient was placed in reverse Trendelenburg position. Patient continued to vomit at the emergency department. Patient was given atropine, epinephrine and was started on epinephrine drip. Patient is on calcium channel rajinder at home and also on a beta-rajinder. She was given calcium gluconate in an attempt to reverse the calcium channel rajinder. Emergent department discussed the case with cardiologywho recommended the patient be started on dopamine drip. Patient denies any other symptoms except the posterior side of her right knee. She is on Eliquis and reportedly has been compliant with her Eliquis. Reportedly she moved from [place] 2 days ago and lives with a daughter. Her was recently flown to [facility] for head bleed. [facility] Medical History (Updated 03/20/23 @ 07:[address] Geeta Michaud DO) Chronic diastolic (congestive) heart failure Chronic kidney disease (CKD) Essential (primary) hypertension Hyperlipidemia Incomplete left bundle branch block (LBBB) Nonrheumatic mitral valve stenosis with insufficiency Nonrheumatic tricuspid (valve) insufficiency Obesity Persistent atrial fibrillation Secondary pulmonary arterial hypertension Type 2 diabetes mellitus Home Medications insulin detemir U-100 100 unit/mL (3 mL) subcutaneous pen 8 unit subcut DAILY 03/26/18 [History Last Taken Unknown] levothyroxine 25 mcg tablet 25 mcg PO QDAY 03/26/18 [History Last Taken Unknown] metformin 500 mg tablet 500 mg PO BID 03/26/18 [History Last Taken Unknown] apixaban 5 mg tablet (Eliquis) 5 mg PO BID #60 tabs 03/09/20 [Rx Last Taken Unknown] diltiazem HCl 300 mg capsule,extended release 24 hr 300 mg PO QDAY #90 caps 04/13/20 [Rx Last Taken Unknown] cyanocobalamin (vitamin B-12) 1,000 mcg tablet (Vitamin B-12) 1,000 mcg PO DAILY03/19/23 [History Last Taken Unknown] furosemide 20 mg tablet 20 mg PO BID 03/19/23 [History Last Taken Unknown] metoprolol tartrate 100 mg tablet 150 mg PO BID 03/19/23 [History Last Taken Unknown] olmesartan 20 mg tablet 10 mg PO DAILY 03/19/23 [History Last Taken Unknown] rosuvastatin 10 mg tablet 10 mg PO DAILY 03/19/23 [History Last Taken Unknown] Allergy/AdvReac Type Severity Reaction Status Date / Time MARCO Inhibitors AdvReac Cough Verified 03/19/23 18:45 Family History Mother CAD (coronary artery disease) Brother , Age 65 [place] CAD (coronary artery disease) Atrial fibrillation Myocardial infarction Father , in MVA No problems noted. Surgical History History of cholecystectomy S/P ALY (total abdominal hysterectomy) Social History Smoking Status: Former smoker how long ago did patient quit smoking: greater than 20 years alcohol intake: never ROS ROS Narrative Pertinent positives and pertinent negatives as noted in HPI. All other systems were reviewed and are negative Vital Signs Vital Signs Vital Signs: 03/19/23 18:41 03/19/23 18:45 03/19/23 18:52 Temperature 97.2 F L Temperature Source Temporal Pulse Rate 38 L 42 L 81 Respiratory Rate 18 13 Respiratory Effort Respiratory Pattern Blood Pressure 121/28 H 66/49 L 94/65 Blood Pressure Mean 59 54 74 Pulse Ox 97 94 Oxygen Delivery Method Room Air Room Air Oxygen Flow Rate (L/min) 03/19/23 18:55 03/19/23 19:01 03/19/23 19:02 Temperature Temperature Source Pulse Rate 56 L 47 L Respiratory Rate 16 Respiratory Effort Respiratory Pattern Blood Pressure 104/73 78/53 L Blood Pressure Mean 83 61 Pulse Ox 99 95 Oxygen Delivery Method Room Air Nasal Cannula Nasal Cannula Oxygen Flow Rate (L/min) 5 5 03/19/23 19:09 03/19/23 19:14 03/19/23 19:18 Temperature Temperature Source Pulse Rate 48 L 41 L Respiratory Rate 16 15 Respiratory Effort Normal Respiratory Pattern Normal Blood Pressure 81/47 L 78/55 L Blood Pressure Mean 58 62 Pulse Ox 92 Oxygen Delivery Method Nasal Cannula Oxygen Flow Rate (L/min) 5 03/19/23 19:34 03/19/23 19:53 03/19/23 20:06 Temperature Temperature Source Pulse Rate 56 L 60 46 L Respiratory Rate 21 H 15 15 Respiratory Effort Respiratory Pattern Blood Pressure 108/80 122/93 H 92/59 L Blood Pressure Mean 89 102 70 Pulse Ox 96 95 99 Oxygen Delivery Method Nasal Cannula Nasal Cannula Oxygen Flow Rate (L/min) 5 5 5 03/19/23 20:17 03/19/23 20:25 Temperature 97.6 F L Temperature Source Temporal Pulse Rate 56 L 73 Respiratory Rate 21 H 19 H Respiratory Effort Respiratory Pattern Blood Pressure 83/52 L 95/56 L Blood Pressure Mean 62 69 Pulse Ox 99 99 Oxygen Delivery Method Nasal Cannula Room Air Oxygen Flow Rate (L/min) 5 Weight Weight: 82.5 kg Body Mass Index (BMI) 30.2 Physical Exam Narrative Physical exam: General: Patient in reverse Trendelenburg position and vomiting Head: Normocephalic, atraumatic, no tenderness Eyes: Vision is grossly intact. EOMI ENT, no trauma, moist mucous membranes, no rhinorrhea Neck: Nontender, No thyromegaly. CVS: Bradycardia; irregularly irregular rate and rhythm. Respiratory : clear to auscultation bilaterally, chest wall nontender Abdomen: Soft, nontender, nondistended, normal bowel sounds, no masses : Deferred Back: Nontender, no CVA tenderness, no midline spinal tenderness, deformities, step-offs Extremities: Nontender full range of motion, no trauma Skin: Normal color, no trauma, abrasions Neuro: Alert, oriented, cranial nerves II through XII grossly intact. Psychiatry: Normal mood. Normal affect. Not depressed. Not anxious. Results Lab / Micro Data Result Diagrams: 03/20/23 05:05 03/20/23 05:05 Labs: Laboratory Results - last 24 hr 03/19/23 18:42: WBC 9.4, RBC 3.95 L, Hgb 11.8 L, Hct 37.4, MCV 94.7, MCH 29.9, MCHC 31.6 L, RDW Std Deviation 53.3 H, RDW Coeff of [place] 15.5 H, Plt Count 230, MPV 10.1, Immature Gran % (Auto) 0.500, Neut % (Auto) 61.1, Lymph % (Auto) 27.8,Lassen % (Auto) 8.9, Eos % (Auto) 1.1, Baso % (Auto) 0.6, Absolute Neuts (auto) 5.7, Absolute Lymphs (auto) 2.60, Nucleated RBC % 0 03/19/23 18:42: Sodium 137, Potassium 5.2 H, Chloride 109 H, Carbon Dioxide 18.0L, Anion Gap 10, BUN 40 H, Creatinine 2.02 H, Estim Creat Clear Calc 21.99, Est GFR (MDRD) Af Amer 31 L, Est GFR (MDRD) Non-Af 26 L, BUN/Creatinine Ratio 19.8, Glucose 205 H, Calcium 9.3, Troponin I High Sens 20 03/19/23 18:44: POC Glucose 185 H Assessment & Plan Assessment/Plan (1) Bradycardia: (2) Syncope: PLAN: Plan Symptomatic bradycardia/syncope Syncope EKG independently reviewed A-fib with bradycardia with a QTc prolongation. Home beta-rajinder and calcium channel rajinder held. Also all home antihypertensives held. Lasix held. Check TSH and magnesium. Check echocardiogram. Check echocardiogram. Cardiology consult. Acute anemia Hemoglobin 11.8 on presentation. Etiology unclear. Trend CBC CKD stage IV. Trend Stable Hold home Lasix. DVT prophylaxis: SCDs ordered. Home Eliquis held at this time. Charges/Coding Visit Charges Inpatient E&M: 56793 Init Hosp L3 03/20/23 0732 <Electronically signed by Ricco Rod MD> Cosigner Signature (if applicable): CC: Dr. Ricco Rod MD; No Primary Care Physician~ Signed [facility] Work Phone: 1(813) 983-370306-20-[address] Stubbs [facility] March 20, 2023 1:09am Note Date/Time March 19, 2023 8:04 pm [facility] Medical Records Department [address] [place] [address] Emergency Department Summary 03/19/23 MR#: [id number] Acct: [id number] Name: AMALIA CORRAL Rep #:[id number] : 1950 72 From: Sanam Stubbs MD PCP: Care Physician,No Primary Status :ADM IN Location: ICU ICU- HPI History of Present Illness Chief Complaint: Chest Pain Detail of Chief Complaint: Syncope Informant: patient and family Onset/Context/Timing Onset: Today Narrative Narrative: Patient presents via private vehicle secondary to syncopal episodes at home. Patient had a syncopal episode in triage with a heart rate documented in the 20s. She was immediately brought back to room 2. She was placed in Trendelenburg position. Blood pressure was 66 systolic and heart rate was in the low 30s. Family states that she is started complaining of some chest pressure not feelingwell about 15 minutes before they arrived. Once the patient is awake and able to tell us her history she states that she has not felt well all day. She does report some chest pressure. She does have a history of atrial fibrillation. She denies any recent medication changes. Her doctors are in [place] and she just arrived to the area 4 days ago. It does appear patient used to live locally and we do have some old records on her. Patient is anticoagulated on Eliquis and is confident that she has not missed any doses. [facility] Medical History (Updated 03/19/23 @ 20:[address] Sanam Stubbs MD) Chronic diastolic (congestive) heart failure Chronic kidney disease (CKD) Essential (primary) hypertension Hyperlipidemia Incomplete left bundle branch block (LBBB) Nonrheumatic mitral valve stenosis with insufficiency Nonrheumatic tricuspid (valve) insufficiency Obesity Persistent atrial fibrillation Secondary pulmonary arterial hypertension Type 2 diabetes mellitus Home Medications insulin detemir U-100 100 unit/mL (3 mL) subcutaneous pen 8 unit subcut DAILY 03/26/18 [History Last Taken Unknown] levothyroxine 25 mcg tablet 25 mcg PO QDAY 03/26/18 [History Last Taken Unknown] metformin 500 mg tablet 500 mg PO BID 03/26/18 [History Last Taken Unknown] apixaban 5 mg tablet (Eliquis) 5 mg PO BID #60 tabs 03/09/20 [Rx Last Taken Unknown] diltiazem HCl 300 mg capsule,extended release 24 hr 300 mg PO QDAY #90 caps 04/13/20 [Rx Last Taken Unknown] cyanocobalamin (vitamin B-12) 1,000 mcg tablet (Vitamin B-12) 1,000 mcg PO DAILY03/19/23 [History Last Taken Unknown] furosemide 20 mg tablet 20 mg PO BID 03/19/23 [History Last Taken Unknown] metoprolol tartrate 100 mg tablet 150 mg PO BID 03/19/23 [History Last Taken Unknown] olmesartan 20 mg tablet 10 mg PO DAILY 03/19/23 [History Last Taken Unknown] rosuvastatin 10 mg tablet 10 mg PO DAILY 03/19/23 [History Last Taken Unknown] Allergy/AdvReac Type Severity Reaction Status Date / Time MARCO Inhibitors AdvReac Cough Verified 03/19/23 18:45 Family History Mother CAD (coronary artery disease) Brother , Age 65 [place] CAD (coronary artery disease) Atrial fibrillation Myocardial infarction Father , in MVA No problems noted. Surgical History History of cholecystectomy S/P ALY (total abdominal hysterectomy) Social History Smoking Status: Former smoker how long ago did patient quit smoking: greater than 20 years alcohol intake: never ROS ROS ED Constitutional Constitutional ED: Denies chills or fever(s) Eyes Eyes: Denies change in vision ENT ENT ED: Denies sore throat Cardiovascular Cardiovascular: Reports chest pain Respiratory/Chest Respiratory/Chest: Denies cough or dyspnea Gastrointestinal Gastrointestinal: Reports nausea and vomiting; Denies abdominal pain Musculoskeletal Musculoskeletal: Denies back pain Neurologic Neurologic: Denies headache(s) or paresthesias EXAM Physical Exam Const Vital Signs: 03/19/23 18:41 03/19/23 18:45 03/19/23 18:52 Temperature 97.2 F L Temperature Source Temporal Pulse Rate 38 L 42 L 81 Respiratory Rate 18 13 Respiratory Effort Respiratory Pattern Blood Pressure 121/28 H 66/49 L 94/65 Blood Pressure Mean 59 54 74 Pulse Ox 97 94 Oxygen Delivery Method Room Air Room Air Oxygen Flow Rate (L/min) 03/19/23 18:55 03/19/23 19:01 03/19/23 19:02 Temperature Temperature Source Pulse Rate 56 L 47 L Respiratory Rate 16 Respiratory Effort Respiratory Pattern Blood Pressure 104/73 78/53 L Blood Pressure Mean 83 61 Pulse Ox 99 95 Oxygen Delivery Method Room Air Nasal Cannula Nasal Cannula Oxygen Flow Rate (L/min) 5 5 03/19/23 19:09 03/19/23 19:14 03/19/23 19:18 Temperature Temperature Source Pulse Rate 48 L 41 L Respiratory Rate 16 15 Respiratory Effort Normal Respiratory Pattern Normal Blood Pressure 81/47 L 78/55 L Blood Pressure Mean 58 62 Pulse Ox 92 Oxygen Delivery Method Nasal Cannula Oxygen Flow Rate (L/min) 5 03/19/23 19:34 03/19/23 19:53 Temperature Temperature Source Pulse Rate 56 L 60 Respiratory Rate 21 H 15 Respiratory Effort Respiratory Pattern Blood Pressure 108/80 122/93 H Blood Pressure Mean 89 102 Pulse Ox 96 95 Oxygen Delivery Method Nasal Cannula Oxygen Flow Rate (L/min) 5 5 Positive well nourished and well developed General Appearance ED: well developed HEENT Reports dry mucous membranes Mouth ED: Yes dry mucous membranes Mouth: dry mucous membranes Eyes EOMs intact bilaterally Chest Wall inspection of chest normal and palpation of chest normal Resp normal respiratory effort and clear to auscultation bilaterally Cardio Rate: bradycardia GI non-tender Palpation: soft Extremity normal to inspection Neuro oriented x3 Neuro Narrative: No focal neurologic deficits. MDM MDM MDM Narrative Medical decision making narrative: Pacer pads were placed and the patient IV line was established. Patient was given atropine with no response in her heart rate. IV fluids are initiated. Patient is given 0.5 epinephrine with improvement in her heart rate and blood pressure. Labwork obtained to evaluate for leukocytosis, anemia, and electrolyte derangement. Chest x-ray obtained to evaluate for acute lung pathology, cardiac size, or mediastinal abnormality. EKG obtained to evaluate for cardiac arrhythmia/ischemia. After several minutes patient's heart rate did slowly drop back down into the 40s and blood pressure did drop. She was initiated on an epinephrine drip. Lab Data Attestation: I reviewed the patient's lab results. Labs: Laboratory Results - last 24 hr 03/19/23 03/19/23 03/19/23 18:42 18:42 18:44 WBC 9.4 RBC 3.95 L Hgb 11.8 L Hct 37.4 MCV 94.7 MCH 29.9 MCHC 31.6 L RDW Std Deviation 53.3 H RDW Coeff of [place] 15.5 H Plt Count 230 MPV 10.1 Immature Gran % (Auto) 0.500 Neut % (Auto) 61.1 Lymph % (Auto) 27.8 [place] % (Auto) 8.9 Eos % (Auto) 1.1 Baso % (Auto) 0.6 Absolute Neuts (auto) 5.7 Absolute Lymphs (auto) 2.60 Nucleated RBC % 0 Sodium 137 Potassium 5.2 H Chloride 109 H Carbon Dioxide 18.0 L Anion Gap 10 BUN 40 H Creatinine 2.02 H Estim Creat Clear Calc 21.99 Est GFR (MDRD) Af Amer 31 L Est GFR (MDRD) Non-Af 26 L BUN/Creatinine Ratio 19.8 Glucose 205 H Calcium 9.3 Troponin I High Sens 20 POC Glucose 185 H EKG Initial EKG: Attestation: I personally reviewed and interpreted this EKG as follows: Interpretation: Atrial Fibrillation (Atrial fibrillation with a ventricular response of 30. No significant ST change.) Follow-up EKG: Attestation: I personally reviewed and interpreted this EKG as follows: Interpretation: Atrial Fibrillation (Atrial fibrillation with a rate of 54bpm.) Treatment and Re-Evaluation :: CBC is unremarkable. Chemistry studies reveal a bicarb of 18, BUN of 40, creatinine of 2.02. Glucose is 205. Troponin is 20. Chest x-ray is pending at this time. EKG x2 reveals atrial fibrillation with nospecific ST change. On epinephrine drip at 0.3 mics per kilo heart rate is in the 50s and blood pressure is between 100-110 systolic. Given that she is on Cardizem she was given calcium gluconate. I spoke with Dr. Wynn, on-call for cardiology. He recommended switching her epinephrine drip to dopamine and placing her in the ICU. Her rate control medicines should be held. I will speak with the hospitalist. Critical Care Time Critical Care Time: Yes Critical care time (excluding procedures): 30-74 minutes (45 mins), Discussing w/Patient &/or Family/Urologic Nurse, Discussing w/Consultants, Arranging Admission or Transfer and Performing Direct Patient Care at Bedside Discharge Plan Triage Chief Complaint: Chest Pain ED Provider: Sanam Stubbs Dx/Rx/DC Orders Clinical Impression: Bradycardia, Syncope Prescriptions: No Action levothyroxine 25 mcg tablet 25 mcg PO QDAY metformin 500 mg tablet 500 mg PO BID insulin detemir U-100 100 unit/mL (3 mL) insulin pen 8 unit SC DAILY metoprolol tartrate 100 mg Tablet 150 mg PO BID furosemide 20 mg Tablet 20 mg PO BID olmesartan 20 mg Tablet 10 mg PO DAILY rosuvastatin 10 mg Tablet 10 mg PO DAILY cyanocobalamin (vitamin B-12) [Vitamin B-12] 1,000 mcg Tablet 1,000 mcg PO DAILY Eliquis 5 mg tablet 5 mg PO BID Qty: 60 11RF diltiazem HCl 300 mg capsule,extended release 24hr 300 mg PO QDAY Qty: 90 3RF Primary Care Provider: Care Physician,No Primary Referrals: Care Physician,No Primary [Primary Care Provider] - Disposition Disposition: Acute Care Hospital [facility] What to do if you have Problems For any increased pain, shortness of breath, bleeding, nausea or vomiting, chestpain, or any unexpected problems, contact your Primary Care Provider. Call [facility] ([phone]) or report to the closest Emergency Room. Call 911 if necessary. 03/20/23 0109 <Electronically signed by Sanam Stubbs MD> Cosigner Signature (if applicable): CC: No Primary Care Physician ~ Signed [facility] Work Phone: [phone] 350-150402-06-2008 History of Past illness Narrative* Problem Noted Date Diagnosed Date Resolved Date Cellulitis and abscess of toe, unspecified 11/06/2007 10/15/2008 Contact dermatitis and other eczema, due to unspecified cause 10/11/2007 10/15/2008 Ingrowing nail 08/23/2007 10/15/2008 documented as of this encounter (statuses as of 06/06/2023) [facility]02-06-2008 History of Past illness Narrative* Problem Noted Date Diagnosed Date Resolved Date Cellulitis and abscess of toe, unspecified 11/06/2007 10/15/2008 Contact dermatitis and other eczema, due to unspecified cause 10/11/2007 10/15/2008 Ingrowing nail 08/23/2007 10/15/2008 documented as of this encounter (statuses as of 06/20/2023) [facility] History of Past illness Narrative* Problem Noted Date Diagnosed Date Resolved Date Cellulitis and abscess of toe, unspecified 11/06/2007 10/15/2008 Contact dermatitis and other eczema, due to unspecified cause 10/11/2007 10/15/2008 Ingrowing nail 08/23/2007 10/15/2008 documented as of this encounter (statuses as of 07/07/2023) [facility] History of Past illness Narrative* Problem Noted Date Diagnosed Date Resolved Date Cellulitis and abscess of toe, unspecified 11/06/2007 10/15/2008 Contact dermatitis and other eczema, due to unspecified cause 10/11/2007 10/15/2008 Ingrowing nail 08/23/2007 10/15/2008 documented as of this encounter (statuses as of 07/07/2023) [facility] History of Past illness Narrative* Problem Noted Date Diagnosed Date Resolved Date Cellulitis and abscess of toe, unspecified 11/06/2007 10/15/2008 Contact dermatitis and other eczema, due to unspecified cause 10/11/2007 10/15/2008 Ingrowing nail 08/23/2007 10/15/2008 documented as of this encounter (statuses as of 08/07/2023) [facility] History of Past illness Narrative* Problem Noted Date Diagnosed Date Resolved Date Cellulitis and abscess of toe, unspecified 11/06/2007 10/15/2008 Contact dermatitis and other eczema, due to unspecified cause 10/11/2007 10/15/2008 Ingrowing nail 08/23/2007 10/15/2008 documented as of this encounter (statuses as of 08/31/2023) [facility] History of Past illness Narrative* Problem Noted Date Diagnosed Date Resolved Date Cellulitis and abscess of toe, unspecified 11/06/2007 10/15/2008 Contact dermatitis and other eczema, due to unspecified cause 10/11/2007 10/15/2008 Ingrowing nail 08/23/2007 10/15/2008 documented as of this encounter (statuses as of 11/20/2023) [facility] History of Past illness Narrative* Problem Noted Date Diagnosed Date Resolved Date Cellulitis and abscess of toe, unspecified 11/06/2007 10/15/2008 Contact dermatitis and other eczema, due to unspecified cause 10/11/2007 10/15/2008 Ingrowing nail 08/23/2007 10/15/2008 documented as of this encounter (statuses as of 11/20/2023) [facility] History of Past illness Narrative* Problem Noted Date Diagnosed Date Resolved Date Cellulitis and abscess of toe, unspecified 11/06/2007 10/15/2008 Contact dermatitis and other eczema, due to unspecified cause 10/11/2007 10/15/2008 Ingrowing nail 08/23/2007 10/15/2008 documented as of this encounter (statuses as of 11/22/2023) [facility] History of Past illness Narrative* Problem Noted Date Diagnosed Date Resolved Date Cellulitis and abscess of toe, unspecified 11/06/2007 10/15/2008 Contact dermatitis and other eczema, due to unspecified cause 10/11/2007 10/15/2008 Ingrowing nail 08/23/2007 10/15/2008 documented as of this encounter (statuses as of 12/10/2023) [facility] History of Past illness Narrative* Problem Noted Date Diagnosed Date Resolved Date Cellulitis and abscess of toe, unspecified 11/06/2007 10/15/2008 Contact dermatitis and other eczema, due to unspecified cause 10/11/2007 10/15/2008 Ingrowing nail 08/23/2007 10/15/2008 documented as of this encounter (statuses as of 12/10/2023) [facility] History of Past illness Narrative* Problem Noted Date Diagnosed Date Resolved Date Cellulitis and abscess of toe, unspecified 11/06/2007 10/15/2008 Contact dermatitis and other eczema, due to unspecified cause 10/11/2007 10/15/2008 Ingrowing nail 08/23/2007 10/15/2008 documented as of this encounter (statuses as of 12/31/2023) [facility] History of Past illness Narrative* Problem Noted Date Diagnosed Date Resolved Date Cellulitis and abscess of toe, unspecified 11/06/2007 10/15/2008 Contact dermatitis and other eczema, due to unspecified cause 10/11/2007 10/15/2008 Ingrowing nail 08/23/2007 10/15/2008 documented as of this encounter (statuses as of 12/31/2023) [facility] Diagnosis Onset Date Resolution Status Bradycardia acute Syncope acute [facility] Work Phone: Evaluation note* Diagnosis Onset Date Resolution Status Bradycardia acute Diastolic dysfunction without heart failure acute E. coli UTI acute Elevated serum creatinine ac [place] Hypokalemia acute Left ventricular systolic dysfunction (LVSD) acute Mitral regurgitation acute Sick sinus syndrome acute Syncope acute Toxic metabolic encephalopathy acute Chronic kidney disease (CKD) chronic Essential (primary) hypertension chronic Persistent atrial fibrillation chronic Hypoxia resolved [facility] Work Phone: Evaluation note* Diagnosis Onset Date Resolution Status E. 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 Essential (primary) hypertension chronic Mitral regurgitation chronic Persistent atrial fibrillation chronic Sick sinus syndrome chronic Abnormal cardiovascular stress test acute Decreased left ventricular systolic function chronic 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 Essential (primary) hypertension chronic Mitral regurgitation chronic Persistent atrial fibrillation chronic Sick sinus syndrome chronic [id number] acute Decreased left ventricular systolic function chronic Essential (primary) hypertension chronic Mitral regurgitation chronic Persistent atrial fibrillation chronic Sick sinus syndrome [facility] Work Phone: Evaluation note* Diagnosis Coronary artery disease 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- Primary Primary hypertension Unspecified essential hypertension Mixed hyperlipidemia Rheumatic mitral valve disease Other and unspecified mitral valve diseases Chronic atrial fibrillation (HCC) Atrial fibrillation Type 2 diabetes mellitus without complication, with long-term current use of insulin ([facility]) [facility] Diagnosis PAF (paroxysmal atrial fibrillation) ([facility])- Primary Atrial fibrillation [facility] Diagnosis Onset Date Resolution Status 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 Essential (primary) hypertension chronic Mitral regurgitation chronic Persistent atrial fibrillation chronic Sick sinus syndrome chronic Bradycardia resolved Elevated serum creatinine re solved Hypokalemia resolved Hypoxia resolved Syncope resolved Toxic metabolic encephalopathy resolved Decreased left ventricular systolic function chronic 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 Essential (primary) hypertension chronic Mitral regurgitation chronic Persistent atrial fibrillation chronic Sick sinus syndrome chronic Abnormal cardiovascular stress test acute Decreased left ventricular systolic function chronic 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 Essential (primary) hypertension chronic Mitral regurgitation chronic Persistent atrial fibrillation chronic Sick sinus syndrome chronic [id number] acute Decreased left ventricular systolic function chronic Essential (primary) hypertension chronic Mitral regurgitation chronic Persistent atrial fibrillation chronic Sick sinus syndrome chronic History of coronary artery stent placement acute Coronary artery disease dice table operator tova 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 Essential (primary) hypertension chronic Mitral regurgitation chronic Persistent atrial fibrillation chronic Sick sinus syndrome [facility] Work Phone: Evaluation note* Diagnosis Moderate late onset Alzheimer's dementia without behavioral disturbance, psychotic disturbance, mood disturbance, or anxiety ([facility])- Primary documented in this encounter [facility] note* Diagnosis Onset Date Resolution Status Decreased left ventricular systolic function chronic 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 Essential (primary) hypertension chronic Mitral regurgitation chronic Persistent atrial fibrillation chronic Sick sinus syndrome chronic Abnormal cardiovascular stress test acute Decreased left ventricular systolic function chronic 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 Essential (primary) hypertension chronic Mitral regurgitation chronic Persistent atrial fibrillation chronic Sick sinus syndrome chronic [id number] acute Decreased left ventricular systolic function chronic Essential (primary) hypertension chronic Mitral regurgitation chronic Persistent atrial fibrillation chronic Sick sinus syndrome chronic History of coronary artery stent placement acute Coronary artery disease dice table operator tova 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 Essential (primary) hypertension chronic Mitral regurgitation chronic Persistent atrial fibrillation chronic Sick sinus syndrome chronic History of coronary artery stent placement acute Coronary artery disease dice table operator tova 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 Essential (primary) hypertension chronic Mitral regurgitation chronic Persistent atrial fibrillation chronic Sick sinus syndrome [facility] Work Phone: Evaluation note* Diagnosis PAF (paroxysmal atrial fibrillation) ([facility])- Primary Atrial fibrillation documented in this encounter [facility] note* Diagnosis Permanent atrial fibrillation ([facility])- Primary Atrial fibrillation documented in this encounter [facility] note* Diagnosis Onset Date Resolution Status Abnormal cardiovascular stress test acute Decreased left ventricular systolic function chronic 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 Essential (primary) hypertension chronic Mitral regurgitation chronic Persistent atrial fibrillation chronic Sick sinus syndrome chronic [id number] acute Decreased left ventricular systolic function chronic Essential (primary) hypertension chronic Mitral regurgitation chronic Persistent atrial fibrillation chronic Sick sinus syndrome chronic History of coronary artery stent placement acute Coronary artery disease dice table operator tova 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 Essential (primary) hypertension chronic Mitral regurgitation chronic Persistent atrial fibrillation chronic Sick sinus syndrome chronic History of coronary artery stent placement acute Coronary artery disease dice table operator tova 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 Essential (primary) hypertension chronic Mitral regurgitation chronic Persistent atrial fibrillation chronic Sick sinus syndrome [facility] Work Phone: Evaluation note* Diagnosis Onset Date Resolution Status Abnormal cardiovascular stress test acute Decreased left ventricular systolic function chronic 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 Essential (primary) hypertension chronic Mitral regurgitation chronic Persistent atrial fibrillation chronic Sick sinus syndrome chronic [id number] acute Decreased left ventricular systolic function chronic Essential (primary) hypertension chronic Mitral regurgitation chronic Persistent atrial fibrillation chronic Sick sinus syndrome chronic History of coronary artery stent placement acute Coronary artery disease dice table operator tova 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 Essential (primary) hypertension chronic Mitral regurgitation chronic Persistent atrial fibrillation chronic Sick sinus syndrome chronic History of coronary artery stent placement acute Coronary artery disease dice table operator tova 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 Essential (primary) hypertension chronic Mitral regurgitation chronic Persistent atrial fibrillation chronic Sick sinus syndrome chronic History of coronary artery stent placement acute Coronary artery disease dice table operator tova 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 Essential (primary) hypertension chronic Mitral regurgitation chronic Persistent atrial fibrillation chronic Sick sinus syndrome [facility] Work Phone: Evaluation note* Diagnosis Onset Date Resolution Status [id number] acute Decreased left ventricular systolic function chronic Essential (primary) hypertension chronic Mitral regurgitation chronic Persistent atrial fibrillation chronic Sick sinus syndrome chronic History of coronary artery stent placement acute Coronary artery disease dice table operator tova 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 Essential (primary) hypertension chronic Mitral regurgitation chronic Persistent atrial fibrillation chronic Sick sinus syndrome chronic History of coronary artery stent placement acute Coronary artery disease dice table operator tova 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 Essential (primary) hypertension chronic Mitral regurgitation chronic Persistent atrial fibrillation chronic Sick sinus syndrome chronic History of coronary artery stent placement acute Coronary artery disease dice table operator tova 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 Essential (primary) hypertension chronic Mitral regurgitation chronic Persistent atrial fibrillation chronic Sick sinus syndrome [facility] Work Phone: Evaluation note* Diagnosis Persistent atrial fibrillation (HCC)- Primary Atrial fibrillation documented in this encounter [facility] note* Diagnosis CHB (complete heart block) (HCC)- Primary Atrioventricular block, complete documented in this encounter [facility] note* Diagnosis Coronary artery disease 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- Primary Rheumatic mitral valve disease Other and unspecified mitral valve diseases Rheumatic aortic valve insufficiency Permanent atrial fibrillation (HCC) Atrial fibrillation H/O atrioventricular yessica ablation Personal history of surgery to heart and great vessels, presenting hazards to health Pulmonary HTN (HCC) Other chronic pulmonary heart diseases Essential hypertension Unspecified essential hypertension Mixed hyperlipidemia documented in this encounter [facility] note* Diagnosis Moderate late onset Alzheimer's dementia without behavioral disturbance, psychotic disturbance, mood disturbance, or anxiety (HCC)- Primary documented in this encounter [facility] note* Diagnosis Moderate late onset Alzheimer's dementia without behavioral disturbance, psychotic disturbance, mood disturbance, or anxiety (HCC)- Primary documented in this encounter [facility] note* Diagnosis 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)- Primary Anger documented in this encounter [facility] note* Diagnosis 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)- Primary Anger documented in this encounter [facility] note* Diagnosis PAF (paroxysmal atrial fibrillation) (HCC)- Primary Atrial fibrillation documented in this encounter [facility] note* Diagnosis Anger 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) documented in this encounter [facility] note* Diagnosis 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)- Primary Anger documented in this encounter [facility] note* Diagnosis Coronary artery disease 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 documented in this encounter [facility] note* Diagnosis PAF (paroxysmal atrial fibrillation) (HCC)- Primary Atrial fibrillation documented in this encounter [facility] note* Diagnosis Atrial fibrillation, unspecified type (HCC) [I48.91]- Primary documented in this encounter [facility] note* Diagnosis Permanent atrial fibrillation (HCC)- Primary Atrial fibrillation 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 Long-term (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 of 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 documented in this encounter [facility] noteNo assessment information availableWCommunity [facility] Work Phone: Evaluation note* Diagnosis 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)- Primary documented in this encounter [facility] note* Diagnosis 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)- Primary 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) documented in this encounter [facility] for referral (narrative)No reason for referral information availableWCommunity [facility] Hospital Work Phone: Chief Complaint and Reason for Visit Chief Complaint SYMPTOMATIC BRADYCAR SHANTELL WITH SYNCOPE Reason for Visit Bradycardia Syncope Chief Complaint SYMPTOMATIC BRADYCAR SHANTELL WITH SYNCOPE SYMPTOMATIC BRADYCARDIA WITH SYNCOPE SYMPTOMATIC BRADYCARDIA WITH SYNCOPE SYMPTOMATIC BRADYCARDIA WITH SYNCOPE SYMPTOMATIC BRADYCARDIA WITH SYNCOPE SYMPTOMATIC BRADYCARDIA WITH SYNCOPE SYMPTOMATIC BRADYCARDIA WITH SYNCOPE SYMPTOMATIC BRADYCARDIA WITH SYNCOPE SYMPTOMATIC BRADYCARDIA WITH SYNCOPE SYMPTOMATIC BRADYCARDIA WITH SYNCOPE SYMPTOMATIC BRADYCARDIA WITH SYNCOPE SYMPTOMATIC BRADYCARDIA WITH SYNCOPE SYMPTOMATIC BRADYCARDIA WITH SYNCOPE 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 coli UTI Elevated serum creatinine Hypokalemia Left ventricular systolic dysfunction (LVSD) Mitral regurgitation Sick sinus syndrome Syncope Toxic metabolic encephalopathy Chronic kidney disease (CKD) Essential (primary) hypertension Persistent atrial fibrillation Hypoxia Chief Complaint SYMPTOMATIC BRADYCAR SHANTELL WITH SYNCOPE SYMPTOMATIC BRADYCARDIA WITH SYNCOPE SYMPTOMATIC BRADYCARDIA WITH SYNCOPE SYMPTOMATIC BRADYCARDIA WITH SYNCOPE SYMPTOMATIC BRADYCARDIA WITH SYNCOPE SYMPTOMATIC BRADYCARDIA WITH SYNCOPE SYMPTOMATIC BRADYCARDIA WITH SYNCOPE SYMPTOMATIC BRADYCARDIA WITH SYNCOPE SYMPTOMATIC BRADYCARDIA WITH SYNCOPE SYMPTOMATIC BRADYCARDIA WITH SYNCOPE SYMPTOMATIC BRADYCARDIA WITH SYNCOPE SYMPTOMATIC BRADYCARDIA WITH SYNCOPE SYMPTOMATIC BRADYCARDIA WITH SYNCOPE 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 coli UTI Diastolic dysfunction without heart failure Essential (primary) hypertension Mitral regurgitation Persistent atrial fibrillation Sick sinus syndrome Bradycardia Elevated serum creatinine Hypokalemia Hypoxia Syncope Toxic metabolic encephalopathy Decreased left ventricular systolic function Diastolic dysfunction without heart failure Essential (primary) hypertension Mitral regurgitation Persistent atrial fibrillation Sick sinus syndrome Chief Complaint SYMPTOMATIC BRADYCAR SHANTELL WITH SYNCOPE SYMPTOMATIC BRADYCARDIA WITH SYNCOPE SYMPTOMATIC BRADYCARDIA WITH SYNCOPE SYMPTOMATIC BRADYCARDIA WITH SYNCOPE SYMPTOMATIC BRADYCARDIA WITH SYNCOPE SYMPTOMATIC BRADYCARDIA WITH SYNCOPE SYMPTOMATIC BRADYCARDIA WITH SYNCOPE SYMPTOMATIC BRADYCARDIA WITH SYNCOPE SYMPTOMATIC BRADYCARDIA WITH SYNCOPE SYMPTOMATIC BRADYCARDIA WITH SYNCOPE SYMPTOMATIC BRADYCARDIA WITH SYNCOPE SYMPTOMATIC BRADYCARDIA WITH SYNCOPE SYMPTOMATIC BRADYCARDIA WITH SYNCOPE 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 coli UTI Diastolic dysfunction without heart failure Essential (primary) hypertension Mitral regurgitation Persistent atrial fibrillation Sick sinus syndrome Bradycardia Elevated serum creatinine Hypokalemia Hypoxia Syncope Toxic metabolic encephalopathy Decreased left ventricular systolic function Diastolic dysfunction without heart failure Essential (primary) hypertension Mitral regurgitation Persistent atrial fibrillation Sick sinus syndrome Abnormal cardiovascular stress test Decreased left ventricular systolic function Diastolic dysfunction without heart failure Essential (primary) hypertension Mitral regurgitation Persistent atrial fibrillation Sick sinus syndrome Chief Complaint SYMPTOMATIC BRADYCAR SHANTELL WITH SYNCOPE SYMPTOMATIC BRADYCARDIA WITH SYNCOPE SYMPTOMATIC BRADYCARDIA WITH SYNCOPE SYMPTOMATIC BRADYCARDIA WITH SYNCOPE SYMPTOMATIC BRADYCARDIA WITH SYNCOPE SYMPTOMATIC BRADYCARDIA WITH SYNCOPE SYMPTOMATIC BRADYCARDIA WITH SYNCOPE SYMPTOMATIC BRADYCARDIA WITH SYNCOPE SYMPTOMATIC BRADYCARDIA WITH SYNCOPE SYMPTOMATIC BRADYCARDIA WITH SYNCOPE SYMPTOMATIC BRADYCARDIA WITH SYNCOPE SYMPTOMATIC BRADYCARDIA WITH SYNCOPE SYMPTOMATIC BRADYCARDIA WITH SYNCOPE 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 coli UTI Diastolic dysfunction without heart failure Essential (primary) hypertension Mitral regurgitation Persistent atrial fibrillation Sick sinus syndrome Bradycardia Elevated serum creatinine Hypokalemia Hypoxia Syncope Toxic metabolic encephalopathy Decreased left ventricular systolic function Diastolic dysfunction without heart failure Essential (primary) hypertension Mitral regurgitation Persistent atrial fibrillation Sick sinus syndrome Abnormal cardiovascular stress test Decreased left ventricular systolic function Diastolic dysfunction without heart failure Essential (primary) hypertension Mitral regurgitation Persistent atrial fibrillation Sick sinus syndrome Chief Complaint SYMPTOMATIC BRADYCAR SHANTELL WITH SYNCOPE SYMPTOMATIC BRADYCARDIA WITH SYNCOPE SYMPTOMATIC BRADYCARDIA WITH SYNCOPE SYMPTOMATIC BRADYCARDIA WITH SYNCOPE SYMPTOMATIC BRADYCARDIA WITH SYNCOPE SYMPTOMATIC BRADYCARDIA WITH SYNCOPE SYMPTOMATIC BRADYCARDIA WITH SYNCOPE SYMPTOMATIC BRADYCARDIA WITH SYNCOPE SYMPTOMATIC BRADYCARDIA WITH SYNCOPE SYMPTOMATIC BRADYCARDIA WITH SYNCOPE SYMPTOMATIC BRADYCARDIA WITH SYNCOPE SYMPTOMATIC BRADYCARDIA WITH SYNCOPE SYMPTOMATIC BRADYCARDIA WITH SYNCOPE 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 coli UTI Diastolic dysfunction without heart failure Essential (primary) hypertension Mitral regurgitation Persistent atrial fibrillation Sick sinus syndrome Bradycardia Elevated serum creatinine Hypokalemia Hypoxia Syncope Toxic metabolic encephalopathy Decreased left ventricular systolic function Diastolic dysfunction without heart failure Essential (primary) hypertension Mitral regurgitation Persistent atrial fibrillation Sick sinus syndrome Abnormal cardiovascular stress test Decreased left ventricular systolic function Diastolic dysfunction without heart failure Essential (primary) hypertension Mitral regurgitation Persistent atrial fibrillation Sick sinus syndrome [id number] Decreased left ventricular systolic function Essential (primary) hypertension Mitral regurgitation Persistent atrial fibrillation Sick sinus syndrome Chief Complaint SYMPTOMATIC BRADYCAR SHANTELL WITH SYNCOPE SYMPTOMATIC BRADYCARDIA WITH SYNCOPE SYMPTOMATIC BRADYCARDIA WITH SYNCOPE SYMPTOMATIC BRADYCARDIA WITH SYNCOPE SYMPTOMATIC BRADYCARDIA WITH SYNCOPE SYMPTOMATIC BRADYCARDIA WITH SYNCOPE SYMPTOMATIC BRADYCARDIA WITH SYNCOPE SYMPTOMATIC BRADYCARDIA WITH SYNCOPE SYMPTOMATIC BRADYCARDIA WITH SYNCOPE SYMPTOMATIC BRADYCARDIA WITH SYNCOPE SYMPTOMATIC BRADYCARDIA WITH SYNCOPE SYMPTOMATIC BRADYCARDIA WITH SYNCOPE SYMPTOMATIC BRADYCARDIA WITH SYNCOPE 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 S/P [facility] 03-25-23 CHRONIC DIASTOLIC HEART FAILURE CHRONIC DIASTOLIC HEART FAILURE CHRONIC DIASTOLIC HEART FAILURE ABN STRESS PER AR ABNORMAL STRESS TEST STAT BMP SCANNED ORDER CHEST PAIN PTCA or stent AFIB S/P [facility] 06/01 (SCANNED)/[facility] 06/20 PCI W/CORONARY STENTING, NON-STEMI 3 M FU E-\\ORDER Reason for Visit Diastolic dysfunctio n without heart failure Essential (primary) hypertension Mitral regurgitation Persistent atrial fibrillation Sick sinus syndrome Bradycardia Elevated serum creatinine Hypokalemia Hypoxia Syncope Toxic metabolic encephalopathy Decreased left ventricular systolic function Diastolic dysfunction without heart failure Essential (primary) hypertension Mitral regurgitation Persistent atrial fibrillation Sick sinus syndrome Abnormal cardiovascular stress test Decreased left ventricular systolic function Diastolic dysfunction without heart failure Essential (primary) hypertension Mitral regurgitation Persistent atrial fibrillation Sick sinus syndrome [id number] Decreased left ventricular systolic function Essential (primary) hypertension Mitral regurgitation Persistent atrial fibrillation Sick sinus syndrome History of coronary artery stent placement Coronary artery disease Diastolic dysfunction without heart failure Essential (primary) hypertension Mitral regurgitation Persistent atrial fibrillation Sick sinus syndrome Chief Complaint S/P [facility] 03-25-23 CHRONIC DIASTOLIC HEART FAILURE CHRONIC DIASTOLIC HEART FAILURE CHRONIC DIASTOLIC HEART FAILURE ABN STRESS PER AR ABNORMAL STRESS TEST STAT BMP SCANNED ORDER CHEST PAIN PTCA or stent AFIB S/P [facility] 06/01 (SCANNED)/[facility] 06/20 PCI W/CORONARY STENTING, NON-STEMI 3 M FU E-\\ORDER 2 W FU Reason for Visit Decreased left ventr icular systolic function Diastolic dysfunction without heart failure Essential (primary) hypertension Mitral regurgitation Persistent atrial fibrillation Sick sinus syndrome Abnormal cardiovascular stress test Decreased left ventricular systolic function Diastolic dysfunction without heart failure Essential (primary) hypertension Mitral regurgitation Persistent atrial fibrillation Sick sinus syndrome [id number] Decreased left ventricular systolic function Essential (primary) hypertension Mitral regurgitation Persistent atrial fibrillation Sick sinus syndrome History of coronary artery stent placement Coronary artery disease Diastolic dysfunction without heart failure Essential (primary) hypertension Mitral regurgitation Persistent atrial fibrillation Sick sinus syndrome History of coronary artery stent placement Coronary artery disease Diastolic dysfunction without heart failure Essential (primary) hypertension Mitral regurgitation Persistent atrial fibrillation Sick sinus syndrome Chief Complaint CHRONIC DIASTOLIC HE ART FAILURE CHRONIC DIASTOLIC HEART FAILURE CHRONIC DIASTOLIC HEART FAILURE ABN STRESS PER AR ABNORMAL STRESS TEST STAT BMP SCANNED ORDER CHEST PAIN PTCA or stent AFIB S/P [facility] 06/01 (SCANNED)/[facility] 06/20 PCI W/CORONARY STENTING, NON-STEMI 3 M FU E-\\ORDER 2 W FU PCI W/CORONARY STENTING, NON-STEMI Reason for Visit Abnormal cardiovascu lar stress test Decreased left ventricular systolic function Diastolic dysfunction without heart failure Essential (primary) hypertension Mitral regurgitation Persistent atrial fibrillation Sick sinus syndrome [id number] Decreased left ventricular systolic function Essential (primary) hypertension Mitral regurgitation Persistent atrial fibrillation Sick sinus syndrome History of coronary artery stent placement Coronary artery disease Diastolic dysfunction without heart failure Essential (primary) hypertension Mitral regurgitation Persistent atrial fibrillation Sick sinus syndrome History of coronary artery stent placement Coronary artery disease Diastolic dysfunction without heart failure Essential (primary) hypertension Mitral regurgitation Persistent atrial fibrillation Sick sinus syndrome Chief Complaint ABN STRESS PER AR ABNORMAL STRESS TEST STAT BMP SCANNED ORDER CHEST PAIN PTCA or stent AFIB S/P [facility] 06/01 (SCANNED)/[facility] 06/20 PCI W/CORONARY STENTING, NON-STEMI 3 M FU E-\\ORDER 2 W FU PCI W/CORONARY STENTING, NON-STEMI 4 W FU Reason for Visit Abnormal cardiovascu lar stress test Decreased left ventricular systolic function Diastolic dysfunction without heart failure Essential (primary) hypertension Mitral regurgitation Persistent atrial fibrillation Sick sinus syndrome [id number] Decreased left ventricular systolic function Essential (primary) hypertension Mitral regurgitation Persistent atrial fibrillation Sick sinus syndrome History of coronary artery stent placement Coronary artery disease Diastolic dysfunction without heart failure Essential (primary) hypertension Mitral regurgitation Persistent atrial fibrillation Sick sinus syndrome History of coronary artery stent placement Coronary artery disease Diastolic dysfunction without heart failure Essential (primary) hypertension Mitral regurgitation Persistent atrial fibrillation Sick sinus syndrome History of coronary artery stent placement Coronary artery disease Diastolic dysfunction without heart failure Essential (primary) hypertension Mitral regurgitation Persistent atrial fibrillation Sick sinus syndrome Chief Complaint ABNORMAL STRESS TEST STAT BMP SCANNED ORDER CHEST PAIN PTCA or stent AFIB S/P [facility] 06/01 (SCANNED)/[facility] 06/20 PCI W/CORONARY STENTING, NON-STEMI 3 M FU E-\\ORDER 2 W FU PCI W/CORONARY STENTING, NON-STEMI 4 W FU Reason for Visit [id number] Decreased left ventricular systolic function Essential (primary) hypertension Mitral regurgitation Persistent atrial fibrillation Sick sinus syndrome History of coronary artery stent placement Coronary artery disease Diastolic dysfunction without heart failure Essential (primary) hypertension Mitral regurgitation Persistent atrial fibrillation Sick sinus syndrome History of coronary artery stent placement Coronary artery disease Diastolic dysfunction without heart failure Essential (primary) hypertension Mitral regurgitation Persistent atrial fibrillation Sick sinus syndrome History of coronary artery stent placement Coronary artery disease Diastolic dysfunction without heart failure Essential (primary) hypertension Mitral regurgitation Persistent atrial fibrillation Sick sinus syndrome Chief Complaint Admit Date OSTEOPOROSIS RX HERE September 17, 2024 2:00pm Family History No Family History Records Found Relationship Condition Age at Onset Recorded Date/T lisa mother Coronary artery disease Unknown brother Coronary artery disease Unknown Atrial fibrillation Unknown Myocardial infarction Unknown Advance Directives No Advanced Directives Records FoundDocuments on File Type Date Recorded 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 Advance Directive(s) 06/18/2023 12:36 PM Date Activated Date Inactivated Comments 04/23/2025 11:07 AM 04/23/2025 4:37 PM Question Answer Comments DNR Order Discussed With: Patient and Decision S urrogate Maker Date Activated Date Inactivated Comments 04/23/2025 9:28 AM 04/23/2025 11:07 AM Question Answer Comments Order Discussed With: Surrogate Decision Maker Date Activated Date Inactivated Comments 04/21/2025 10:12 AM 04/23/2025 9:28 AM Question Answer Comments DNR Order Discussed With: Patient and Decision S urrogate Maker Date Activated Date Inactivated Comments 04/21/2025 9:09 AM 04/21/2025 10:12 AM Question Answer Comments Order Discussed With: Patient and Surrogate Deci dennis Maker Date Activated Date Inactivated Comments 04/18/2025 10:31 PM 04/21/2025 9:09 AM Question Answer Comments DNR Order Discussed With: Surrogate Decision Keagan er Advance Directive Response Recorded Date/ Time Advance Directives Yes March 19 6:39pm Living Will No March 19, 2023 9:18pm Power of Marketing Strategy Manager No March 19 9:18pm Name of Medical Power of Marketing Strategy Manager [place] March 19, 2023 7:12pm Advance Directive Response Recorded Date/ Time Name of Medical Power of Marketing Strategy Manager [place] March 19, 2023 7:12pm Advance Directives Yes March 19 6:39pm Living Will No March 19, 2023 9:18pm Power of Marketing Strategy Manager No March 19 9:18pm Advance Directive Response Recorded Date/ Time Name of Medical Power of Marketing Strategy Manager [place] March 19, 2023 7:12pm Name of Medical Power of Marketing Strategy Manager yuki May 28, 2023 10:11pm Advance Directives No May 24, 2023 9:23am Living Will Yes May 28 10:11pm Power of Marketing Strategy Manager Yes May 28, 2 023 10:11pm Advance Directives on File No Augus t 2022 9:23am Advance Directive Response Recorded Date/ Time Name of Medical Power of Marketing Strategy Manager [place] March 19, 2023 7:12pm Name of Medical Power of Marketing Strategy Manager yuki May 28, 2023 10:11pm Advance Directives on File Yes Julisa rivera 2022 10:53am Advance Directives on File No Augus t 2022 9:23am Name of Medical Power of Marketing Strategy Manager ARIC BLOCK June 20, 2023 9:53am Advance Directives No May 24, 2023 9:23am Living Will Yes June 20, 2023 9:53am Power of Marketing Strategy Manager Yes June 9:53am Advance Directive Response Recorded Date/ Time Name of Medical Power of Marketing Strategy Manager yuki May 28, 2023 10:11pm Advance Directives on File Yes [facility] 2022 10:53am Advance Directives on File No Augus 2022 9:23am Name of Medical Power of Marketing Strategy Manager ARIC BLOCK June 20, 2023 9:53am Advance Directives No May 24, 2023 9:23am Living Will Yes June 20, 2023 9:53am Power of Marketing Strategy Manager Yes June 9:53am Advance Directive Response Recorded Date/ Time Name of Medical Power of Marketing Strategy Manager yuki May 28, 2023 9:11pm Advance Directives on File Yes [facility] 2022 9:53am Advance Directives on File No [facility] 2022 8:23am Name of Medical Power of Marketing Strategy Manager ARIC BLOCK June 20, 2023 8:53am Advance Directives No May 24, 2023 8:23am Living Will Yes June 20, 2023 8:53am Power of Marketing Strategy Manager Yes June 8:53am Advance Directive Response Recorded Date/ Time Advance Directives No May 24, 2023 9:23am Summary Purpose Additional Source Comments Care Teams (unrecognized sec tion and content) Team Status: Active Member Role Status Dates Dr. Rajat Patel MD Family Provider Active No Primary Care Physician Primary Care Provider Active Team Status: Active Member Role Status Dates No Primary Care Physician Primary Care Provider Active Dr. Sanam Stubbs MD Emergency Provider Active Dr. Ricco Rdo MD Admit Provider, Attending Pro vider Active Dr. Sharon Wynn MD Other Provider Active Team Status: Active Member Role Status Dates No Primary Care Physician Primary Care Provider Active Dr. Sanam Stubbs MD Emergency Provider Active Dr. Ricco Rod MD Admit Provider, Attending Provider, Other Provider Active Dr. Sharon Wynn MD Other Provider Active Dr. Geeta Michaud DO Other Provider Active Team Status: Active Member Role Status Dates No Primary Care Physician Primary Care Provider Active Dr. Sanam Stubbs MD Emergency Provider Active Dr. Ricco Rod MD Admit Provider, Other Provide r Active Dr. Sharon Wynn MD Attending Provider, Other Provid er Active Dr. Geeta Michaud DO Other Provider Active Team Status: Active Member Role Status Dates No Primary Care Physician Primary Care Provider Active Dr. Sanam Stubbs MD Emergency Provider Active Dr. Ricco Rod MD Admit Provider, Other Provide r Active Dr. Sharon Wynn MD Other Provider Active Dr. Geeta Michaud DO Attending Provider, Other Provide r Active Team Status: Active Member Role Status Dates No Primary Care Physician Primary Care Provider Active Dr. Sanam Stubbs MD Emergency Provider Active Dr. Ricco Rod MD Admit Provider, Other Provide r Active Dr. Geeta Michaud DO Other Provider Active Dr. Sharon Wynn MD Attending Provider, Other Provid er Active Team Status: Active Member Role Status Dates No Primary Care Physician Primary Care Provider Active Dr. Sanam Stubbs MD Emergency Provider Active Dr. Ricco Rod MD Admit Provider, Other Provide r Active Dr. Geeta Michaud DO Attending Provider, Other Provide r Active Dr. Sharon Wynn MD Other Provider Active Team Status: Inactive Member Role Status Dates No Primary Care Physician Primary Care Provider Active Dr. Sanam Stubbs MD Emergency Provider Active Dr. Ricco Rod MD Admit Provider, Other Provide r Active Dr. Geeta Michaud DO Attending Provider Active Dr. Sharon Wynn MD Other Provider Active Team Status: Active Member Role Status Dates No Primary Care Physician Primary Care Provider Active Dr. Sharon Wynn MD Attending Provider Active Hooker Up Relationship Specialty Start Date End Date Rajat Patel [address] [facility] [address] [place] [id number] PCP - General Family Medicine 03/27/23 Team Status: Inactive Member Role Status Dates No Primary Care Physician Primary Care Provider Active Dr. Sharon Wynn MD Attending Provider Active Team Status: Active Member Role Status Dates Dr. Rajat Patel MD Family Provider Active Dr. Rajat Patel MD Primary Care Provider Active Team Status: Inactive Member Role Status Dates No Primary Care Physician Primary Care Provider, Refer ring Provider Active Dr. Sharon Wynn MD Attending Provider Active Team Status: Active Member Role Status Dates Dr. Sharon Wynn MD Attending Provider , Referring Provider, Other Provider Active Dr. Rajat Patel MD Primary Care Provider Active Team Status: Inactive Member Role Status Dates Dr. Sharon Wynn MD Attending Provider, Referring Pr ovider Active Dr. Rajat Patel MD Primary Care Provider Active Hooker Up Relationship Specialty Start Date End Date JorgeRajat [address] [place] [address] PCP - General Family Medicine 03/27/23 Hooker Up Relationship Specialty Start Date End Date Rajat Patel [address] [place] [address] PCP - General Family Medicine 03/27/23 Team Status: Active Member Role Status Dates Dr. Rajat Patel MD Primary Care Provider Active Dr. Sharon Wynn MD Attending Provider, Referring Pr ovider Active Team Status: Inactive Member Role Status Dates Dr. Rajat Patel MD Primary Care Provider, Referring P rovider Active Dr. Sharon Wynn MD Attending Provider Active Team Status: Inactive Member Role Status Dates Dr. Rajat Patel MD Primary Care Provider, Attending P rovider Active Team Status: Inactive Member Role Status Dates Dr. Rajat Patel MD Primary Care Provider Active Dr. Sanam Stubbs MD Emergency Provider Active Team Status: Inactive Member Role Status Dates Dr. Rajat Patel MD Primary Care Provider Active Dr. Sharon Wynn MD Attending Provider, Referring Pr ovider Active Hooker Up Relationship Specialty Start Date End Date Rajat Patel [address] [place] [address] PCP - General Family Medicine 03/27/23 Hooker Up Relationship Specialty Start Date End Date Rajat Patel MD PCP - General Family Medicine 03/27/16 Liza Fitzgerald MD Primary Staff Physician Cardiology 12/17/18 Hooker Up Relationship Specialty Start Date End Date Rajat Patel MD PCP - General Family Medicine 03/27/16 Liza Fitzgerald MD Primary Staff Physician Cardiology 12/17/18 Team Status: Inactive Member Role Status Dates Dr. Rajat Patel MD Primary Care Provider, Referring P rokamrynder Active Marybel Aquino FIRST LINE SUPERVISOR, FIRST LINE SUPERVISOR-C Attending Provider Active Team Status: Inactive Member Role Status Dates Dr. Rajat Patel MD Primary Care Provider Active Dr. Sanam Stubbs MD Attending Provider, Emergency Provider Active Team Status: Inactive Member Role Status Dates Dr. Rajat Patel MD Primary Care Provider Active Liza Ortiz MD Attending Provider, Referring Provi dawna Active Team Status: Inactive Member Role Status Dates Dr. Rajat Patel MD Primary Care Provider Active Dr. Jana Merino DO Emergency Provider Active Hooker Up Relationship Specialty Start Date End Date Rajat Patel MD PCP - General Family Medicine 03/27/16 Liza Fitzgerald MD Primary Staff Physician Cardiology 12/17/18 Hooker Up Relationship Specialty Start Date End Date Rajat Patel MD PCP - General Family Medicine 03/27/16 Liza Fitzgerald MD Primary Staff Physician Cardiology 12/17/18 Team Status: Active Member Role Status Dates Dr. Rajat Patel MD Primary Care Provider Active Dr. Sharon Wynn MD Attending Provider Active Liza Ortiz MD Referring Provider Active Team Status: Inactive Member Role Status Dates Dr. Rajat Patel MD Primary Care Provider Active Dr. Jana Merino DO Attending Provider, Emergency Pro vider Active [place]er [place] Relationship Specialty Start Date End Date Rajat Patel [address] [facility] [address] [place] [address] PCP - General Family Medicine 03/27/23 Team Status: Inactive Member Role Status Dates Dr. Rajat Patel MD Primary Care Provider Active Dr. Sharon Wynn MD Attending Provider Active Liza Ortiz MD Referring Provider Active [place]er [employer] Relationship Specialty Start Date End Date Rajat Patel MD PCP - General Family Medicine 03/27/16 Liza Fitzgerald MD Primary Staff Physician Cardiology 12/17/18 Team Status: Inactive Member Role Status Dates Dr. Rajat Patel MD Primary Care Provider Active AKBAR GONCALVES Attending Provider, Referring Provider Ac tive Team Status: Inactive Member Role Status Dates Dr. Rajat Patel MD Primary Care Provider Active VÍCTOR NO Attending Provider, Referring Provider Ac tive Team Status: Inactive Member Role Status Dates Dr. Rajat Patel MD Primary Care Provide r, Attending Provider, Referring Provider Active Dr. Sharon Wynn MD Other Provider Active Team Status: Active Member Role Status Dates Dr. Rajat Patel MD Primary Care Provide r, Attending Provider, Referring Provider Active [place] [place] Relationship Specialty Start Date End Date Rajat Patel MD PCP - General Family Medicine 03/27/16 Liza Fitzgerald MD Primary Staff Physician Cardiology 12/17/18 [place]er Up Relationship Specialty Start Date End Date Rajat Patel MD PCP - General Family Medicine 03/27/16 Liza Fitzgerald MD Primary Staff Physician Cardiology 12/17/18 [place]er Up Relationship Specialty Start Date End Date Rajat Patel [address] [facility] [address] [place] [address] PCP - General Family Medicine 03/27/23 Hooker Up Relationship Specialty Start Date End Date Rajat Patel MD PCP - General Family Medicine 03/27/16 Liza Fitzgerald MD Primary Staff Physician Cardiology 12/17/18 [place]er Up Relationship Specialty Start Date End Date Rajat Patel MD PCP - General Family Medicine 03/27/16 Liza Fitzgerald MD Primary Staff Physician Cardiology 12/17/18 [place]er Up Relationship Specialty Start Date End Date Rajat Patel MD PCP - General Family Medicine 03/27/16 Liza Fitzgerald MD Primary Staff Physician Cardiology 12/17/18 [place]er Up Relationship Specialty Start Date End Date Rajat Patel MD PCP - General Family Medicine 03/27/16 Liza Fitzgerald MD Primary Staff Physician Cardiology 12/17/18 [place]er Up Relationship Specialty Start Date End Date Rajat Patel [address] [facility] [address] [place] [phone] PCP - General Family Medicine 03/27/23 Hooker Up Relationship Specialty Start Date End Date Patel Rajat Juan M [address] [facility] [address] [place] [phone] PCP - General Family Medicine 03/27/23 [place]er Up Relationship Specialty Start Date End Date Rajat Patel [address] [place] [phone] PCP - General Family Medicine 03/27/23 [place]er Up Relationship Specialty Start Date End Date Rajat Patel MD PCP - General Family Medicine 03/27/16 Liza Fitzgerald MD Primary Staff Physician Cardiology 12/17/18 [place]er Up Relationship Specialty Start Date End Date Rajat Patel MD PCP - General Family Medicine 03/27/16 Liza Fitzgerald MD Primary Staff Physician Cardiology 12/17/18 [place]er Up Relationship Specialty Start Date End Date Rajat Patel [address] [facility] [address] [place] [phone] PCP - General Family Medicine 03/27/23 [place]er Up Relationship Specialty Start Date End Date Rajat Patel MD PCP - General Family Medicine 03/27/16 Liza Fitzgerald MD Primary Staff Physician Cardiology 12/17/18 [place]er Up Relationship Specialty Start Date End Date Rajat Patel MD PCP - General Family Medicine 03/27/16 Liza Fitzgerald MD Primary Staff Physician Cardiology 12/17/18 [place]er Up Relationship Specialty Start Date End Date Rajat Patel MD PCP - General Family Medicine 03/27/16 Liza Fitzgerald MD Primary Staff Physician Cardiology 12/17/18 Team Status: Inactive Member Role Status Dates Dr. Rajat Patel MD Primary Care Provider Active Start: September 17, 2024 End: September 17, 2024 Sary Robledo FIRST LINE SUPERVISOR, FIRST LINE SUPERVISOR-C Attending Provider Active S tart: September 17, 2024 End: September 17, 2024 Sary Robledo FIRST LINE SUPERVISOR, FIRST LINE SUPERVISOR-C Referring Provider Active S tart: September 17, 2024 End: September 17, 2024 Team Status: Inactive Member Role Status Dates Dr. Rajat Patel MD Primary Care Provider Active Start: January 01, 2025 End: January 01, 2025 Dr. Rajat Patel MD Attending Provider Active St art: January 01, 2025 End: January 01, 2025 Dr. Rajat Patel MD Referring Provider Active St art: January 01, 2025 End: January 01, 2025 [employer]er Up Relationship Specialty Start Date End Date Rajat Patel [address] [facility] [address] [place] [phone] PCP - General Family Medicine 03/27/23 [place]er Up Relationship Specialty Start Date End Date Rajat Patel MD PCP - General Family Medicine 03/27/16 Liza Fitzgerald MD Primary Staff Physician Cardiology 12/17/18 [place]er Up Relationship Specialty Start Date End Date Rajat Patel MD PCP - General Family Medicine 03/27/16 Liza Fitzgerald MD Primary Staff Physician Cardiology 12/17/18 [place]er Up Relationship Specialty Start Date End Date Rajat Patel MD PCP - General Family Medicine 03/27/16 Liza Fitzgerald MD Primary Staff Physician Cardiology 12/17/18 [place]er Up Relationship Specialty Start Date End Date Rajat Patel MD PCP - General Family Medicine 03/27/16 Liza Fitzgerald MD Primary Staff Physician Cardiology 12/17/18 Cassi Love MD [address] [address] Gastroenterology 05/08/25 [place]er Up Relationship Specialty Start Date End Date Rajat Patel MD PCP - General Family Medicine 03/27/16 Liza Fitzgerald MD Primary Staff Physician Cardiology 12/17/18 Cassi Love MD [facility] [address] Gastroenterology 05/08/25 Reason for Visit (unrecogniz ed section and content) Reason Onset Date Comments Appointment Request 03/26/2023 Reason Comments Memory Loss Specialty Diagnoses / Procedures Referred By Contac t Referred To Contact Geriatric Medicine Diagnoses memory per dtr; recently discharged from [facility]. Procedures geriatric assessment [place] [address] [phone] [place] [address] [phone] Referral ID Status Reason Start Date Expiration Date Visits Re quested Visits Authorized [id number] Closed 03/27/2023 09/23/2023 1 1 Reason Onset Date Comments Appointment 05/31/2023 Patient needs to cancel appt with Ivanna Reason Comments Erroneous encounter-disregard Reason Comments Appointment Reason Comments CARD Hospital Follow Up CAD Reason Comments Orders Appointment Reason Comments Zio Placement Reason Comments Orders Reason Onset Date Comments Appointment 11/20/2023 Reason Comments Results Reason Onset Date Comments Error (VOID this visit) 05/21/2023 Reason Comments Permanent Pacemaker Reason Comments Follow Up Reason Onset Date Comments FYI 01/23/2024 Reason Comments Remote Pacemaker Follow Up Reason Comments Patient Update Results Reason Onset Date Comments Itching 06/25/2024 Reason Comments Med Refill Reason Comments Refill Request Reason Comments CARD Follow Up Annual YEARLY A-FIB CHECK UP Reason Onset Date Comments Refill Request 03/26/2025 Reason Onset Date Comments Refill Request 04/24/2025 Reason Comments New Patient Reason Comments Patient Update Source Comments (unrecognize d section and content) In the event this informatio n is protected by the Federal Confidentiality of Alcohol and Drug Abuse Patient Records regulations: The Federal rules restrict any use of the information to criminally investigate or prosecute any alcohol or drug abuse patient.[facility] the event this information is protected by the Federal Confidentiality of Alcohol and Drug Abuse Patient Records regulations: The Federal rules restrict any use of the information to criminally investigate or prosecute any alcohol or drug abuse patient.[facility] the event this information is protected by the Federal Confidentiality of Alcohol and Drug Abuse Patient Records regulations: The Federal rules restrict any use of the information to criminally investigate or prosecute any alcohol or drug abuse patient.[facility] the event this information is protected by the Federal Confidentiality of Alcohol and Drug Abuse Patient Records regulations: The Federal rules restrict any use of the information to criminally investigate or prosecute any alcohol or drug abuse patient.[facility] the event this information is protected by the Federal Confidentiality of Alcohol and Drug Abuse Patient Records regulations: The Federal rules restrict any use of the information to criminally investigate or prosecute any alcohol or drug abuse patient.[facility] the event this information is protected by the Federal Confidentiality of Alcohol and Drug Abuse Patient Records regulations: The Federal rules restrict any use of the information to criminally investigate or prosecute any alcohol or drug abuse patient.[facility] the event this information is protected by the Federal Confidentiality of Alcohol and Drug Abuse Patient Records regulations: The Federal rules restrict any use of the information to criminally investigate or prosecute any alcohol or drug abuse patient.[facility] the event this information is protected by the Federal Confidentiality of Alcohol and Drug Abuse Patient Records regulations: The Federal rules restrict any use of the information to criminally investigate or prosecute any alcohol or drug abuse patient.[facility] the event this information is protected by the Federal Confidentiality of Alcohol and Drug Abuse Patient Records regulations: The Federal rules restrict any use of the information to criminally investigate or prosecute any alcohol or drug abuse patient.[facility] the event this information is protected by the Federal Confidentiality of Alcohol and Drug Abuse Patient Records regulations: The Federal rules restrict any use of the information to criminally investigate or prosecute any alcohol or drug abuse patient.[facility] the event this information is protected by the Federal Confidentiality of Alcohol and Drug Abuse Patient Records regulations: The Federal rules restrict any use of the information to criminally investigate or prosecute any alcohol or drug abuse patient.[facility] the event this information is protected by the Federal Confidentiality of Alcohol and Drug Abuse Patient Records regulations: The Federal rules restrict any use of the information to criminally investigate or prosecute any alcohol or drug abuse patient.[facility] the event this information is protected by the Federal Confidentiality of Alcohol and Drug Abuse Patient Records regulations: The Federal rules restrict any use of the information to criminally investigate or prosecute any alcohol or drug abuse patient.[facility] the event this information is protected by the Federal Confidentiality of Alcohol and Drug Abuse Patient Records regulations: The Federal rules restrict any use of the information to criminally investigate or prosecute any alcohol or drug abuse patient.[facility] the event this information is protected by the Federal Confidentiality of Alcohol and Drug Abuse Patient Records regulations: The Federal rules restrict any use of the information to criminally investigate or prosecute any alcohol or drug abuse patient.[facility] the event this information is protected by the Federal Confidentiality of Alcohol and Drug Abuse Patient Records regulations: The Federal rules restrict any use of the information to criminally investigate or prosecute any alcohol or drug abuse patient.[facility]In the event this information is protected by the Federal Confidentiality of Alcohol and Drug Abuse Patient Records regulations: The Federal rules restrict any use of the information to criminally investigate or prosecute any alcohol or drug abuse patient.[facility]In the event this information is protected by the Federal Confidentiality of Alcohol and Drug Abuse Patient Records regulations: The Federal rules restrict any use of the information to criminally investigate or prosecute any alcohol or drug abuse patient.[facility]In the event this information is protected by the Federal Confidentiality of Alcohol and Drug Abuse Patient Records regulations: The Federal rules restrict any use of the information to criminally investigate or prosecute any alcohol or drug abuse patient.[facility]In the event this information is protected by the Federal Confidentiality of Alcohol and Drug Abuse Patient Records regulations: The Federal rules restrict any use of the information to criminally investigate or prosecute any alcohol or drug abuse patient.[facility]In the event this information is protected by the Federal Confidentiality of Alcohol and Drug Abuse Patient Records regulations: The Federal rules restrict any use of the information to criminally investigate or prosecute any alcohol or drug abuse patient.[facility]In the event this information is protected by the Federal Confidentiality of Alcohol and Drug Abuse Patient Records regulations: The Federal rules restrict any use of the information to criminally investigate or prosecute any alcohol or drug abuse patient.[facility]In the event this information is protected by the Federal Confidentiality of Alcohol and Drug Abuse Patient Records regulations: The Federal rules restrict any use of the information to criminally investigate or prosecute any alcohol or drug abuse patient.[facility]In the event this information is protected by the Federal Confidentiality of Alcohol and Drug Abuse Patient Records regulations: The Federal rules restrict any use of the information to criminally investigate or prosecute any alcohol or drug abuse patient.[facility]In the event this information is protected by the Federal Confidentiality of Alcohol and Drug Abuse Patient Records regulations: The Federal rules restrict any use of the information to criminally investigate or prosecute any alcohol or drug abuse patient.[facility]In the event this information is protected by the Federal Confidentiality of Alcohol and Drug Abuse Patient Records regulations: The Federal rules restrict any use of the information to criminally investigate or prosecute any alcohol or drug abuse patient.[facility]In the event this information is protected by the Federal Confidentiality of Alcohol and Drug Abuse Patient Records regulations: The Federal rules restrict any use of the information to criminally investigate or prosecute any alcohol or drug abuse patient.[facility]In the event this information is protected by the Federal Confidentiality of Alcohol and Drug Abuse Patient Records regulations: The Federal rules restrict any use of the information to criminally investigate or prosecute any alcohol or drug abuse patient.[facility]In the event this information is protected by the Federal Confidentiality of Alcohol and Drug Abuse Patient Records regulations: The Federal rules restrict any use of the information to criminally investigate or prosecute any alcohol or drug abuse patient.[facility] Goals (unrecognized section and content) Goals may be documented in a n alternate sectionGoals may be documented in an alternate sectionGoals may be documented in an alternate sectionGoals may be documented in an alternate sectionGoals may be documented in an alternate sectionGoals may be documented in an alternate section INFORMATION SOURCE (unrecogn ized section and content) DATE CREATED AUTHOR 08/23/2023 [facility] DATE CREATED AUTHOR AUTHOR'S ORGANIZ ATION 09/15/2024 [facility] DATE CREATED AUTHOR AUTHOR'S ORGANIZ ATION 01/08/2025 [facility] DATE CREATED AUTHOR AUTHOR'S ORGANIZ ATION 02/13/2025 [facility] DATE CREATED AUTHOR AUTHOR'S ORGANIZ ATION 04/21/2025 [facility] DATE CREATED AUTHOR AUTHOR'S ORGANIZ ATION 04/26/2025 [facility] DATE CREATED AUTHOR AUTHOR'S ORGANIZ ATION 05/28/2025 [facility] DATE CREATED AUTHOR AUTHOR'S ORGANIZ ATION 06/10/2025 [facility] FOR RECORDS PERTAINING TO PATIENTS WHO ARE OR HAVE BEEN ENROLLED IN A CHEMICAL DEPENDENCY/SUBSTANCEABUSE PROGRAM, SOME INFORMATION MAY BE OMITTED. This clinical summary was aggregated from multiple sources. Caution should be exercised in using it in the provision of clinical care. This summary normalizes information from multiple sources, and as a consequence, information in this document may materially change the coding, format and clinical context of patient data. In addition, data may be omitted in some cases. CLINICAL DECISIONS SHOULD BE BASED ON THE PRIMARY CLINICAL RECORDS. [facility] [employer] [facility]. provides no warranty or guarantee of the accuracy or completeness of information in this document.
[2025-07-22 08:09] LABS: Hematocrit 32.6 % (37-47); Hemoglobin 10.6 g/dL (12.0-15.0); Mean Corp Hgb Conc 32.5 g/dL (32-36); Mean Corpuscular Volume 91.1 fL (81-99); Mean Platelet Vol. 9.2 fl (6.2-12.0); Platelet Count 267 K/mm3 (150-450); RBC Distribution Width CV 19.1 % (11.6-14.6); RBC Distribution Width SD 64.5 fl (35.1-43.9); Red Blood Count 3.58 M/mm3 (4.2-5.4); White Blood Count 6.3 K/mm3 (4.4-11.0)
[2025-07-22 08:28] LABS: Anion Gap 15 (5-15); BUN 39 mg/dL (4-19); BUN/Creat Ratio 22.2 RATIO (10-20); Calcium,Total 9.4 mg/dL (7.6-11.0); Carbon Dioxide 26.0 mmol/L (21.0-32.0); Chloride 103 mmol/L (98-108); Cholesterol 141 mg/dL (<=200); Glucose 106 mg/dL (70-99); Low Density Lipoprotein Calc. 77 mg/dL; Potassium 3.4 mmol/L (3.3-5.1); Triglycerides 98 mg/dL; Very Low Density Lipoprotein 20 mg/dL (5-40); cholesterol:hdl ratio screen 3.09
== END ==
LOC: OLS.WCC 05:00
PROVIDERS: PCP Family Medicine; Visit Provider Family Medicine
DX: I48.91 Unspecified atrial fibrillation (principal); I13.0 Hypertensive heart and chronic kidney disease with heart failure and stage 1 through stage 4 chronic kidney disease, or unspecified chronic kidney disease; I50.32 Chronic diastolic (congestive) heart failure; E11.22 Type 2 diabetes mellitus with diabetic chronic kidney disease; E03.9 Hypothyroidism, unspecified; E78.5 Hyperlipidemia, unspecified; N18.30 Chronic kidney disease, stage 3 unspecified; I44.7 Left bundle-branch block, unspecified
CPT/HCPCS: 36415; 80048; 80061; 83036; 84443; 85027

== ENCOUNTER → 2025-09-16 05:00 | Outpatient (REF) | payer MEDICARE, OTHER, MEDICAID, SELFPAY ==
[2023-06-19 10:34] VITALS: BMI 26.9
--- OUTSIDE RECORDS SUMMARY | 2025-09-16 04:57 | XMS RPT_ITS | CCD ---
Author Organization [facility] Care Team Providers Care Space Planner Name Role Phone Agnieszka RN, Malgorzata A Unavailable Unavailable Agnieszka RN, Malgorzata Mcgowan Unavailable Unavailable Jose RN, Jazmin Bond Unavailable Amalia Patel Unavailable Ofelia Estelle Natalie Unavailable Agnieszka RN, Malgorzata A Unavailable Unavailable Amalia Patel Unavailable Care Physician, No Primary Primary Care Provider Unavailable Dr. Sanam Stubbs Emergency Provider Dr. Ricco Rod Admit Provider Dr. Ricco Rod Attending Provider Dr. Ricco Rod Other Provider Dr. Sharon Wynn Other Provider Dr. Geeta Michaud Other Provider Dr. Geeta Michaud Attending Provider Dr. Sharon Wynn Attending Provider Unavailable Primary Care Provider UnavailRajat Wilder Primary Care Provider Care Physician, No Primary Referring Provider Un available Dr. Sharon Wynn Referring Provider Dr. Rajat Patel Primary Care Provider Dr. Rajat Patel Primary Care Provider Dr. Sharon Wynn Referring Provider Dr. Rajat Patel Referring Provider [phone] Rajat Patel MD Primary Care Provider [phone] Amilcar VALLE, Liza Unavailable Roof KITCHEN SUPERVISOR, KITCHEN SUPERVISOR-C Marybel Whitten Attending Provider Care Physician, No Primary Primary Care Provider Unavailable Philomena, Dr. Herrera Attending Provider Philomena, Dr. Herrera Other Provider Dr. Rajat Patel Primary Care Provider Philomena, Dr. Herrera Attending Provider Philomena, Dr. Herrera Referring Provider Philomena, Dr. Herrera Other Provider Dr. Rajat Patel Referring Provider Roof KITCHEN SUPERVISOR, KITCHEN SUPERVISOR-C Marybel Whitten Attending Provider PHILOMENA, SHARON Referring Unavailable MARYBEL RENEE Attending Unavailable RAJAT PATEL Primary Care Unavailable Dr. Rajat Patel Primary Care Provider Philomena, Dr. Herrera Attending Provider Dr. Rajat Patel Primary Care Provider Dr. Rajat Patel Referring Provider Philomena, Dr. Herrera Attending Provider Rajat Patel MD Primary Care Provider [phone] MITCHELL VANESSA Attending Unavail MITCHELL Moody Referring Unavail Dr. Rajat Crowell MD Primary Care Provider Venkat KITCHEN SUPERVISOR-C, Sary Attending Provider Venkat KITCHEN SUPERVISOR-C, Sary Referring Provider Dr. Rajat Patel MD Attending Provider [phone] Rajat Patel MD Referring Provider [phone] RAJAT PATEL Primary Care Unavailable IVANNA REN Attending Unavailable IVANNA REN Attending Unavailable RAJAT PATEL Primary Care Unavailable IVANNA REN Attending Unavailable RAJAT PATEL Primary Care Unavailable YEIMY SALAS MD Admitting Unavailable YEIMY SALAS MD Primary Care Unavailable YEIMY SALAS MD Consulting Unavailable YEIMY SALAS MD Attending Unavailable PROVIDER, UNKNOWN Consulting Unavailable PROVIDER, UNKNOWN Consulting Unavailable PROVIDER, UNKNOWN Consulting Unavailable SAL ABURTO Admitting Unavailable CRISELDA, ROSSY Primary Care Unavailable SAL ABURTO Attending Unavailable MITZI GALLEGOS-Jung Referring Unavailabl e PATEL, RAJAT A Primary Care Unavailable PATEL, RAJAT A Primary Care Unavailable CONKLE-DESTINY, RANDI Attending Unavaila SELENA Nunez Attending Unava ilable PATEL, RAJAT A Primary Care Unavailable PATEL, RAJAT A Primary Care Unavailable CHLOE STRONG Referring Unavailable PATEL, RAJTA A Primary Care Unavailable CHLOE STRONG Attending Unavailable PATEL, RAJAT A Primary Care Unavailable Cassi Love MD Unavailable PATEL, RAJAT A Primary Care Unavailable SANAM PATEL Attending Unavailable SANAM URRUTIA Referring Unavailable PROVIDER, UNKNOWN Referring Unavailable PATEL, RAJAT A Primary Care Unavailable ASAEL WRIGHT Attending Unavailable CONKLE-LAGARAMX, RANDI Referring Unavaila CASSI Blanton Consulting Unavailable PATEL, RAJAT A Primary Care Unavailable PROVIDER, UNKNOWN Attending Unavailable SAHLEY ZAMUDIO Admitting Unavailable Cassi Love MD Unavailable PATEL, RAJAT A Primary Care Unavailable LISA CLEMENTE Referring Unavailable PATEL, RAJAT A Primary Care Unavailable LISA CLEMENTE Attending Unavailable LIZA ORTIZ Referring Unavailable LIZA ORTIZ Attending Unavailable PATEL, RAJAT A Primary Care Unavailable Patel, Rajat Primary Care Unavailable Patel OLS, Rajat Attending Unavailable Patel, Rajat Attending Unavailable Patel, Rajat Referring Unavailable Patel, Rajat Primary Care Unavailable Sary Robledo Attending Unavailable Venkat, Sary Referring Unavailable Patel, Rajat Primary Care Unavailable Patel, Rajat Referring Unavailable Patel, Rajat Primary Care Unavailable Patel, Rajat Attending Unavailable Venkat, Sary Attending Unavailable Venkat, Sary Referring Unavailable Patel, Rajat Primary Care Unavailable Allergies Allergy Classification Reported Allergen(s) Allergy Type Date of Onset Reaction(s) Facility (20 sources) Angiotensin Converting Enzyme (Marco) Inhibitors; 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: [MARCO INHIBITORS] drug allergy 04-05-2009 [facility] Work Phone: (20 sources) losartan drug allergy 10-03-2015 [facility] Work Phone: (20 sources) Losartan; 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: [LOSARTAN POTASSIUM] Drug Allergy 11-24-2014 [facility] Work Phone: Medications Current Medications Medication [...] on above: Take 1 tablet by gloria twice daily. aspirin 81 mg oral tablet [...] mg tablet Discontinued 40 mg PO DAILY June 22, 2023 12:22pm March 24, 2024 [...] 1/2 tablet by mouth daily LOSARTAN POTASSIUM [id number] Mike Joiner MD metFORMIN hydrochloride 500 mg [...] TABS One tablet by mouth daily CYANOCOBALAMIN [id number] Mike Joiner MD Start: 08-09-2015 End: 09-04-2017 take 1 tablet by mouth once daily Cyanocobalamin (Vitamin B-12) 2,500 MCG tablet Discontinued 2500 ug PO DAILY August 09, 2015 1:00am September 04, 2017 3:09pm Comment on above: Take 1,000 mcg by [facility] once daily. Completed/Discontinued Medications Medication Drug Class(es) Dates Sig (Normalized) Sig (Original) amiodarone hydrochloride 200 mg oral tablet (14 sources) Antiarrhythmic Start: 10-12-2015 End: 05-02-2016 take 1 tablet by mouth once daily AMIODARONE HCL 200 MG TABS One tablet by mouth daily AMIODARONE HCL [id number] Mike Joiner MD atenolol 100 mg oral [...] Discontinued 25 mg PO TWICE A DAY 180 April 26, 2018 11:40am March 25, 2019 [...] Discontinued 250 mg PO TWICE A DAY 3 March 25, 2023 12:00am March 26, 2023 [...] mg) tablet Discontinued 125 ug PO DAILY 90 April 18, 2023 10:07am June 22, 2023 [...] Discontinued 120 mg PO TWICE A DAY 60 July 19, 2023 2:09pm March 24, 2024 11:23am Start: 03-25-2023 End: 06-19-2023 take 1 capsule by mouth every twelve hours Diltiazem Hcl 180 mg capsule,extended release 24hr Discontinued 180 mg PO EVERY 12 HOURS 180 April 18, 2023 10:08am June 19, 2023 10:39am Start: 10-03-2015 End: 03-25-2023 take 1 capsule by mouth once daily Diltiazem Hcl 300 mg capsule,extended release 24hr Discontinued 300 mg PO daily 90 April 13, 2020 12:36pm March 25, 2023 10:46am Start: 10-03-2015 End: 09-04-2017 take 1 capsule by mouth twice daily Diltiazem Hcl 120 MG capsule Discontinued 120 mg PO TWICE A DAY October 11, 2015 1:21pm September 04, 2017 3:08pm Start: 10-03-2015 take 1 tablet by gloria th twice daily CARDIZEM CD 120 MG [id number] One tablet by mouth twice daily DILTIAZEM HCL COATED BEADS [id number] Mike Joiner MD Start: 10-03-2015 take 1 tablet by gloria th once daily CARDIZEM CD 120 MG [id number] One tablet by mouth daily DILTIAZEM HCL COATED BEADS [id number] Destiny Bowie RN Start: 10-03-2015 take 1 tablet by gloria th twice daily CARDIZEM CD 120 MG [id number] One tablet by mouth twice daily DILTIAZEM HCL COATED BEADS [id number] Mike Joiner MD Start: 10-03-2015 take 1 tablet by gloria th once daily CARDIZEM CD 120 MG [id number] One tablet by mouth daily DILTIAZEM HCL COATED BEADS [id number] Destiny Bowie RN Start: 08-11-2015 End: 10-11-2015 [...] 5 MG tablet Discontinued 5 mg PO DAILY@0730 August 09, 2015 1:00am March 25, 2019 2:59pm [...] IT/ML SOLN Take as directed INSULIN DETEMIR [id number] Destiny Bowie RN Start: 10-03-2015 LEVEMIR 100 UN IT/ML SOLN Take as directed INSULIN DETEMIR [id number] Destiny Bowie RN inject 8 [IU] by [...] TABS One tablet by mouth daily LOVASTATIN [id number] Destiny Bowie RN olmesartan medoxomil 20 mg oral [...] tablet Discontinued 10 mg PO DAILY April 09, 2023 10:30am June 19, 2023 10:40am Comment on above: Take 1 tablet by gloria th once daily. spironolactone 25 mg oral tablet (14 sources) Aldosterone Antagonist Start: 10-03-19 16 End: 10-06-19 16 take 1 tablet by mouth once daily ALDACTONE 25 MG TABS One tablet by mouth daily SPIRONOLACTONE [id number] Destiny Bowie RN CHOLECALCIFEROL (7 sources) Start: 10-03-19 16 take 1 tablet by mouth once daily VITAMIN D 1000 UNIT TABS One tablet by mouth daily CHOLECALCIFEROL [id number] Destiny Bowie RN Start: 10-03-2015 take 1 tablet by gloria th once daily VITAMIN D 1000 UNIT TABS One tablet by mouth daily CHOLECALCIFEROL [id number] Destiny Bowie RN Start: 10-03-2015 take 1 tablet by gloria th once daily VITAMIN D 1000 UNIT TABS One tablet by mouth daily CHOLECALCIFEROL [id number] Destiny Bowie RN Problems Active Problems Problem [...] Coronary arteriosclerosis; 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: [Atherosclerotic heart disease of [place] coronary artery without angina pectoris] Onset: 05-29-2023 Resolved: 01-04-2024 05-29-2023 Chronic Comment on above: S/P stenting to prox imal ID and distal RCA on 06/01/2023 at [facility]; Coronary atherosclerosis and other heart disease (14 sources) Presence of coronary angioplasty implant and graft; 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: [Percutaneous transluminal coronary angioplasty status] 07-09-2023 Episodic Deficiency and other anemia (4 sources) Anemia; [...] tricuspid (valve) insufficiency] Onset: 10-03-2015 10-03-2015 Chronic Nutritional deficiencies (20 sources) Vitamin D deficiency; 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: [Vitamin D deficiency, unspecified] Onset: 10-15-2008 10-15-2008 Chronic Nutritional deficiencies (1 source) Deficiency of other specified B group vitamins; 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: [Deficiency of other specified B group vitamins] Onset: 04-09-2025 Episodic Osteoporosis (1 source) Age-related osteoporosis without current pathological fracture; 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: [Age-related osteoporosis without current pathological fracture] Onset: 08-19-2024 Chronic Other aftercare (7 sources) Other fdc (current) drug therapy; 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: [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 ward 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] Onset: 10-03-2015 10-03-2015 Episodic Other aftercare (1 source) Long-term current use of anticoagulant; 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: [nursing home (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 of 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] 11-19-2024 Episodic Other and ill-defined heart disease (14 sources) Left ventricular systolic dysfunction; 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: [Heart disease, unspecified] 03-24-2023 Chronic Other and ill-defined heart disease (14 sources) Diastolic dysfunction; 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: [Other ill-defined heart diseases] 03-21-2023 Chronic Other and ill-defined heart disease (20 sources) Other ill-defined heart diseases; 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: [Heart disease, unspecified] 03-25-2023 Chronic Other and ill-defined heart disease (20 sources) Heart disease, unspecified; 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: [Heart disease, unspecified] 03-25-2023 Chronic Other and ill-defined heart disease [...] 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: [Closed fracture of coccyx, initial encounter ([facility])] Onset: 04-18-2025 Episodic Other gastrointestinal disorders (1 [...] [Disorientation, unspecified] 04-01-2024 Episodic Residual codes; unclassified (1 source) Disorientation, unspecified; 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: [Confusion] Onset: 04-18-2025 Episodic Syncope (20 sources) Syncope; 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: [Syncope and collapse] 03-19-2023 Episodic Thyroid disorders (1 source) Hypothyroidism, unspecified; 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: [Hypothyroidism, unspecified] Onset: 04-09-2025 Chronic Unclassified (7 sources) Drug therapy finding; 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: [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] Onset: 10-03-2015 10-03-2015 Unclassified (2 sources) Long-term drug therapy; 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: [Other fdc (current) drug therapy] Onset: 10-03-2015 10-03-2015 Unclassified [...] vomit] Onset: 04-19-2025 Resolved: 04-21-2025 04-21-2025 Episodic Malaise and fatigue (20 sources) Fatigue; 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: [Other fatigue] Onset: 03-27-2016 Resolved: 04-18-2025 03-27-2016 Episodic Nonspecific chest pain (20 sources) Chest pain; 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: [Chest pain, unspecified] Onset: 02-20-2017 Resolved: 01-04-2024 02-20-2017 Episodic Other aftercare (20 sources) Drug therapy finding; 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: [nursing home (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 of 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] Onset: 11-19-2023 Resolved: 04-19-2025 11-19-2023 Episodic Other aftercare (1 source) 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; 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: [nursing home current use of anticoagulant] Onset: 11-19-2024 Episodic [...] nail] Onset: 08-23-2007 Resolved: 10-15-2008 10-15-2008 Episodic Pneumonia (except that caused by tuberculosis [...] Test Name Value Interpretation Reference Range Facility Basic Metabolic Profile (BMP )on 07-22-2025 BUN/CRE 22.2 RATIO High 07-20 [facility] Comment on above: Performed By: #### L 500.4100, L100.0500, L501.9520, L500.2500, L501.9985 #### [facility] [address] [place], [address] Calcium [Mass/Vol] 9.4 mg/dL Normal 7.6-11.[address] [facility] Comment on above: Performed By: #### L 500.4100, L100.0500, L501.9520, L500.2500, L501.9985 #### [facility] [address] [place], [address] Chloride [Moles/Vol] 103 mmol/L Normal 98-108 [facility] Comment on above: Performed By: #### L 500.4100, L100.0500, L501.9520, L500.2500, L501.9985 #### [facility] [address] [place], [address] CO2 [Moles/Vol] 26.0 mmol/L Normal 21.0-32.0 [facility] Comment on above: Performed By: #### L 500.4100, L100.0500, L501.9520, L500.2500, L501.9985 #### [facility] [address] [place], [address] Creatinine [Mass/Vol] 1.75 mg/dL High 0.70-1.20 [facility] Comment on above: Performed By: #### L 500.4100, L100.0500, L501.9520, L500.2500, L501.9985 #### [facility] [address] [place], [address] GAP 15 Normal 5-15 [facility] Comment on above: Performed By: #### L 500.4100, L100.0500, L501.9520, L500.2500, L501.9985 #### [facility] [address] [place], [address] GFR/1.73 sq M.predicted among non-blacks MDRD (S/P/Bld) [Vol rate/Area] 30 mL/min/{1.73_m2} Low >60 [facility] Comment on above: Result Comment: mL/m in/1.73m2 CKD-EPI Creatinine Equation (2020) Performed By: #### L 500.4100, L100.0500, L501.9520, L500.2500, L501.9985 #### [facility] [address] [place], [address] Glucose [Mass/Vol] 106 mg/dL High 70-[address] [facility] Comment on above: Performed By: #### L 500.4100, L100.0500, L501.9520, L500.2500, L501.9985 #### [facility] [address] [place], [address] Potassium [Moles/Vol] 3.4 mmol/L Normal 3.3-5.1 [facility] Comment on above: Performed By: #### L 500.4100, L100.0500, L501.9520, L500.2500, L501.9985 #### [facility] [address] [place], [address] Sodium [Moles/Vol] 144 mmol/L Normal 133-[address] [facility] Comment on above: Performed By: #### L 500.4100, L100.0500, L501.9520, L500.2500, L501.9985 #### [facility] [address] [place], [address] Urea nitrogen [Mass/Vol] 39 mg/dL High 4-19 [facility] Comment on above: Performed By: #### L 500.4100, L100.0500, L501.9520, L500.2500, L501.9985 #### [facility] [address] [place], [address] CBC-Complete Blood Cnt No Di ffon 07-22-2025 Erythrocyte distribution width (RBC) [Ratio] 19.1 % High 11.6-14.6 [facility] Comment on above: Performed By: #### L 500.4100, L100.0500, L501.9520, L500.2500, L501.9985 #### [facility] [address] [place], [address] Hematocrit (Bld) [Volume fraction] 32.6 % Low 37-47 [facility] Comment on above: Performed By: #### L 500.4100, L100.0500, L501.9520, L500.2500, L501.9985 #### [facility] [address] [place], [address] Hemoglobin (Bld) [Mass/Vol] 10.6 g/dL Low 12.0-15.0 [facility] Comment on above: Performed By: #### L 500.4100, L100.0500, L501.9520, L500.2500, L501.9985 #### [facility] [address] [place], [address] MCH (RBC) [Entitic mass] 29.6 pg Normal 27.0-32.0 [facility] Comment on above: Performed By: #### L 500.4100, L100.0500, L501.9520, L500.2500, L501.9985 #### [facility] [address] [place], [address] MCHC (RBC) [Mass/Vol] 32.5 g/dL Normal 32-36 [facility] Comment on above: Performed By: #### L 500.4100, L100.0500, L501.9520, L500.2500, L501.9985 #### [facility] [address] [place], [address] MCV (RBC) [Entitic vol] 91.1 fL Normal 81-99 [facility] Comment on above: Performed By: #### L 500.4100, L100.0500, L501.9520, L500.2500, L501.9985 #### [facility] [address] [place], [address] Platelet mean volume (Bld) [Entitic vol] 9.2 fL Normal 6.2-12.0 [facility] Comment on above: Performed By: #### L 500.4100, L100.0500, L501.9520, L500.2500, L501.9985 #### [facility] [address] [place], [address] Platelets (Bld) [#/Vol] 267 10*3/uL Normal 150-450 [facility] Comment on above: Performed By: #### L 500.4100, L100.0500, L501.9520, L500.2500, L501.9985 #### [facility] [address] [place], [address] RBC (Bld) [#/Vol] 3.58 10*6/uL Low 4.2-5.4 [facility] Comment on above: Performed By: #### L 500.4100, L100.0500, L501.9520, L500.2500, L501.9985 #### [facility] [address] [place], [address] RDW SD 64.5 fl High 35.1-43.9 [facility] Comment on above: Performed By: #### L 500.4100, L100.0500, L501.9520, L500.2500, L501.9985 #### [facility] [address] [place], [address] WBC (Bld) [#/Vol] 6.3 10*3/uL Normal 4.4-11.[address] [facility] Comment on above: Performed By: #### L 500.4100, L100.0500, L501.9520, L500.2500, L501.9985 #### [facility] [address] [place], [address] Hemoglobin A1con 10-22-2025 HbA1c (Bld) [Mass fraction] 6.0 % High <=5.6 [facility] Comment on above: Result Comment: Norm al < 5.7 % Prediabetic 5.7 - 6.4 % Diabetic >or= 6.5 % Please note range changes. Performed By: #### L 500.4100, L100.0500, L501.9520, L500.2500, L501.9985 #### [facility] [address] [place], [address] Lipid Profileon 07-22-2025 CHOL:HDL 3.09 Normal [facility] Comment on above: Performed By: #### L 500.4100, L100.0500, L501.9520, L500.2500, L501.9985 #### [facility] [address] [place], [address] Cholesterol [Mass/Vol] 141 mg/dL Normal <=200 [facility] Comment on above: Result Comment: Chol esterol level, Desirable <200 mg/dL Borderline high cholesterol 200-239 mg/dL High cholesterol >=240 mg/dL Recommendations of the NCEP Adult Treatment Panel for the following risk-cutoff thresholds for the [place] population. Performed By: #### L 500.4100, L100.0500, L501.9520, L500.2500, L501.9985 #### [facility] [address] [place], [address] Cholesterol in HDL [Mass/Vol] 46 mg/dL Normal [facility] Comment on above: Result Comment: Ariadna onal Cholesterol Education Program (NCEP) guidelines: <40 mg/dL: Low HDL-cholesterol (major risk factor for CHD) >= 60 mg/dL: High HDL-cholesterol (negative risk factor for CHD) HDL-cholesterol is affected by a number of factors, e.g. smoking, exercise, hormones, sex and age. Performed By: #### L 500.4100, L100.0500, L501.9520, L500.2500, L501.9985 #### [facility] [address] [place], [address] Cholesterol in LDL [Mass/Vol] 77 mg/dL Normal [facility] Comment on above: Result Comment: Bord hsmojb=575-322 mg/dL Higher Weod=786 mg/dL or greater Dukes Equation 2020 for LDL-C Performed By: #### L 500.4100, L100.0500, L501.9520, L500.2500, L501.9985 #### [facility] [address] [place], [address] Cholesterol in VLDL [Mass/Vol] 20 mg/dL Normal 5-40 [facility] Comment on above: Performed By: #### L 500.4100, L100.0500, L501.9520, L500.2500, L501.9985 #### [facility] [address] [place], [address] Triglyceride [Mass/Vol] 98 mg/dL Normal [facility] Comment on above: Result Comment: The drugs N-Acetylcysteine and Metamizole may falsely depress this assay. Normal range: <150 mg/dL Borderline High: 150-199 mg/dL High: 200-499 mg/dL Very High: >500 mg/dL Performed By: #### L 500.4100, L100.0500, L501.9520, L500.2500, L501.9985 #### [facility] [address] [place], [address] Thyroid Stim Hormone (TSH)on 07-22-2025 TSH 2.770 uIU/mL Normal 0.300-4.20 0 [facility] Comment on above: Performed By: #### L 500.4100, L100.0500, L501.9520, L500.2500, L501.9985 #### [facility] [address] [place], [address] CBC W Auto Differential pane l (Bld)on 05-08-2025 Basophils (Bld) [#/Vol] 0.03 10*3/uL Normal <0.11 [facility] Comment on above: Order Comment: Speci men Type: BLOOD SPECIMEN Ordering Facility: [facility] Address: [address] [place] [address] Performed By: #### 5 7021-8 #### [facility] CLIA [id number] [address] [place] [address] [place] Basophils/100 WBC (Bld) 0.5 % Normal [facility] Comment on above: Order Comment: Speci men Type: BLOOD SPECIMEN Ordering Facility: [facility] Address: [address] [place] [address] Performed By: #### 5 7021-8 #### [facility] CLIA [id number] [address] [place] [address] [place] Differential cell count method Nom (Bld) Auto Normal [facility] Comment on above: Order Comment: Speci men Type: BLOOD SPECIMEN Ordering Facility: [facility] Address: [address] [place] [address] Performed By: #### 5 7021-8 #### [facility] CLIA [id number] [address] [place] [address] [place] Eosinophils (Bld) [#/Vol] 0.09 10*3/uL Normal <0.46 [facility] Comment on above: Order Comment: Speci men Type: BLOOD SPECIMEN Ordering Facility: [facility] Address: [address] [place] [address] Performed By: #### 5 7021-8 #### [facility] CLIA [id number] [address] [place] [address] [place] Eosinophils/100 WBC (Bld) 1.4 % Normal [facility] Comment on above: Order Comment: Speci men Type: BLOOD SPECIMEN Ordering Facility: [facility] Address: [address] [place] [address] Performed By: #### 5 7021-8 #### [facility] CLIA [id number] [address] [place] [address] [place] Erythrocyte distribution width (RBC) [Ratio] 23.2 % High 11.5-15.0 [facility] Comment on above: Order Comment: Speci men Type: BLOOD SPECIMEN Ordering Facility: [facility] Address: [address] [place] [address] Performed By: #### 5 7021-8 #### [facility] CLIA [id number] [address] [place] [address] [place] Hematocrit (Bld) [Volume fraction] 37.4 % Normal 36.0-46.0 [facility] Comment on above: Order Comment: Speci men Type: BLOOD SPECIMEN Ordering Facility: [facility] Address: [address] [place] [address] Performed By: #### 5 7021-8 #### [facility] CLIA [id number] [address] [place] [address] [place] Hemoglobin (Bld) [Mass/Vol] 11.5 g/dL Normal 11.5-15.5 [facility] Comment on above: Order Comment: Speci men Type: BLOOD SPECIMEN [facility] Facility[facility] Address: [address] [place] [address] Performed By: #### 5 7021-8 #### [facility] CLIA [id number] [address] [place] [address] [place] Immature granulocytes (Bld) [#/Vol] 10*3/uL Normal <0.10 [facility] Comment on above: Order Comment: Speci men Type: BLOOD SPECIMEN Ordering Facility: [facility] Address: [address] [place] [address] Performed By: #### 5 7021-8 #### [id number] [address] [place] [address] [place] Immature granulocytes/100 WBC (Bld) 0.3 % Normal [facility] Comment on above: Order Comment: Speci men Type: BLOOD SPECIMEN Ordering Facility: [facility] Address: [address] [place] [address] Performed By: #### 5 7021-8 #### [facility] CLIA [id number] [address] [place] [address] [place] Lymphocytes (Bld) [#/Vol] 1.08 10*3/uL Normal 1.00-4.00 [facility] Comment on above: Order Comment: Speci men Type: BLOOD SPECIMEN Ordering Facility: [facility] Address: [address] [place] [address] Performed By: #### 5 7021-8 #### [facility] CLIA [id number] [address] [place] [address] [place] Lymphocytes/100 WBC (Bld) 17.3 % Normal [facility] Comment on above: Order Comment: Speci men Type: BLOOD SPECIMEN Ordering Facility: [facility] Address: [address] [place] [address] Performed By: #### 5 7021-8 #### [facility] CLIA [id number] [address] [place] [address] [place] MCH (RBC) [Entitic mass] 26.3 pg Normal 26.0-34.0 [facility] Comment on above: Order Comment: Speci men Type: BLOOD SPECIMEN Ordering Facility: [facility] Address: [address] [place] [address] Performed By: #### 5 7021-8 #### [facility] CLIA [id number] [address] [place] [address] [place] MCHC (RBC) [Mass/Vol] 30.7 g/dL Normal 30.5-36.0 [facility] Comment on above: Order Comment: Speci men Type: BLOOD SPECIMEN Ordering Facility: [facility] Address: [address] [place] [address] Performed By: #### 5 7021-8 #### [facility] CLIA [id number] [address] [place] [address] [place] MCV (RBC) [Entitic vol] 85.6 fL Normal 80.0-100.0 [facility] Comment on above: Order Comment: Speci men Type: BLOOD SPECIMEN Ordering Facility: [facility] Address: [address] [place] [address] Performed By: #### 5 7021-8 #### [facility] CLIA [id number] [address] [place] [address] [place] Monocytes (Bld) [#/Vol] 0.47 10*3/uL Normal <0.87 [facility] Comment on above: Order Comment: Speci men Type: BLOOD SPECIMEN Ordering Facility: [facility] Address: [address] [place] [address] Performed By: #### 5 7021-8 #### [facility] CLIA [id number] [address] [place] [address] [place] Monocytes/100 WBC (Bld) 7.5 % Normal [facility] Comment on above: Order Comment: Speci men Type: BLOOD SPECIMEN Ordering Facility: [facility] Address: [address] [place] [address] Performed By: #### 5 7021-8 #### [facility] CLIA [id number] [address] [place] [address] [place] Neutrophils (Bld) [#/Vol] 4.56 10*3/uL Normal 1.45-7.50 [facility] Comment on above: Order Comment: Speci men Type: BLOOD SPECIMEN Ordering Facility: [facility] Address: [address] [place] [address] Performed By: #### 5 7021-8 #### [facility] CLIA [id number] [address] [place] [address] [place] Neutrophils/100 WBC (Bld) 73.0 % Normal [facility] Comment on above: Order Comment: Speci men Type: BLOOD SPECIMEN Ordering Facility: [facility] Address: [address] [place] [address] Performed By: #### 5 7021-8 #### [facility] CLIA [id number] [address] [place] [address] [place] Nucleated RBC (Bld) [#/Vol] 10*3/uL Normal <0.01 [facility] Comment on above: Order Comment: Speci men Type: BLOOD SPECIMEN Ordering Facility: [facility] Address: [address] [place] [address] Performed By: #### 5 7021-8 #### [facility] CLIA [id number] [address] [place] [address] [place] Nucleated RBC/100 WBC (Bld) [Ratio] 0.0 /100 WBC Normal [facility] Comment on above: Order Comment: Speci men Type: BLOOD SPECIMEN Ordering Facility: [facility] Address: [address] [place] [address] Performed By: #### 5 7021-8 #### [facility] CLIA [id number] [address] [place] [address] [place] Platelet mean volume (Bld) [Entitic vol] 8.6 fL Low 9.0-12.7 [facility] Comment on above: Order Comment: Speci men Type: BLOOD SPECIMEN Ordering Facility: [facility] Address: [address] [place] [address] Performed By: #### 5 7021-8 #### [facility] CLIA [id number] [address] [place] [address] [place] Platelets (Bld) [#/Vol] 254 10*3/uL Normal 150-400 [facility] Comment on above: Order Comment: Speci men Type: BLOOD SPECIMEN Ordering Facility: [facility] Address: [address] [place] [address] Performed By: #### 5 7021-8 #### [facility] CLIA [id number] [address] [place] [address] [place] RBC (Bld) [#/Vol] 4.37 10*6/uL Normal 3.90-5.20 [facility] Comment on above: Order Comment: Speci men Type: BLOOD SPECIMEN Ordering Facility: [facility] Address: [address] [place], [place] [address] Performed By: #### 5 7021-8 #### [facility] CLIA [id number] [address] [place] [address] [place] WBC (Bld) [#/Vol] 6.25 10*3/uL Normal 3.70-11.00 [facility] Comment on above: Order Comment: Speci men Type: BLOOD SPECIMEN Ordering Facility: [facility] Address: [address] [place], [place] [address] Performed By: #### 5 7021-8 #### [facility] CLIA [id number] [address] [place] [address] [place] CNOVSPon 05-08-2025 CNOVSP Visit [facility]SP[facility] AMALIA CORRAL ([id number]) 1950 F Date Time Provider Department 05/08/25 [...] dementia. Ms. Corral lives with her daughter quantitative equity head at her house. Following a brief respite care stay her daughter noticed worsening cognitive decline prompting her to go [facility]. During admission she was found to have PNA, UTI, anemia, and a fractured tailbone following a fall. She had a complete GI work up and was found to have ulcers and was started on Protonix and iron supplementation. nursing home anticoagulation use. She was taken off aspirin. [...] 11/19/2023 With Micra implant; Dr. Strong at [facility] CARDIOVERSION x2 CHOLECYSTECTOMY 10/01/1982 Cholecystectomy MICRA AV LEADLESS PACEMAKER 11/19/2023 With AVN catheter ablation; Dr. Strong at [facility] PERCUTANEOUS CORONARY INTERVENTION 06/01/2023 LAD AND RCA TOTAL ABDOMINAL HYSTERECT W/WO RMVL TUBE OVARY 10/01/1975 Hysterectomy, [facility] Current Outpatient Medications Medication Sig Dispense Refill [...] higher do (more content not included)... [facility] (JOSE) AMALIA CORRAL ([id number]) 1950 F Date Time Provider Department 05/08/25 [...] 5,000 Units by mouth once daily. - SHELBY PEREZ U-100 INSULIN 100 unit/mL (3 [...] [R79.89] 05/29/2023 04/18/2025 Coronary artery disease involving port lions morgan*05/29/2023 At risk for delirium [Z91.89] 05/29/2023 [...] H/O atrioventricular (more content not included)... Normal [facility] COPPER BLOODon 05-08-2025 Copper [Mass/Vol] 126 ug/dL Normal 80-155 [facility] Comment on above: Order Comment: Speci men Type: BLOOD SPECIMEN Order[facility] Facility: [facility] Address: [address] [place] [address] Result Comment: This test was developed, and its performance characteristics determined by the [facility] Department of Pathology and Laboratory Medicine. It has not been cleared or approved by the FDA. The [facility] Department of Pathology and Laboratory Medicine is regulated under CLIA as qualified to perform high-complexity testing. This test is used for clinical purposes. It should not be regarded as investigational or for research. Performed By: #### 5 763-8, COPPER #### [facility] CLIA [id number] [address] [place] [address] [place] Comprehensive metabolic 2000 panelon 05-08-2025 Albumin [Mass/Vol] 4.5 g/dL Normal 3.9-4.9 [facility] Comment on above: Order Comment: Speci robby Type: BLOOD SPECIMEN Ordering Facility: [facility] Address: [address] [place] [address] Performed By: #### 2 4323-8 #### [facility] CLIA [id number] [address] [place] [address] [place] ALP [Catalytic activity/Vol] 75 U/L Normal 34-123 [facility] Comment on above: Order Comment: Guyi robyb Type: BLOOD SPECIMEN Ordering Facility: [facility] Address: [address] [place] [address] Performed By: #### 2 4323-8 #### [facility] CLIA [id number] [address] [place] [address] [place] ALT [Catalytic activity/Vol] 16 U/L Normal 7-38 [facility] Comment on above: Order Comment: Speci men Type: BLOOD SPECIMEN Ordering Facility: [facility] Address: [address] [place] [address] Performed By: #### 2 4323-8 #### [facility] CLIA [id number] [address] [place] [address] [place] Anion gap [Moles/Vol] 17 mmol/L High 8-15 [facility] Comment on above: Order Comment: Speci men Type: BLOOD SPECIMEN Ordering Facility: [facility] Address: [address] [place] [address] Performed By: #### 2 4323-8 #### [facility] CLIA [id number] [address] [place] [address] [place] AST [Catalytic activity/Vol] 29 U/L Normal 13-35 [facility] Comment on above: Order Comment: Speci men Type: BLOOD SPECIMEN Order[facility] Facility: [facility] Address: [address] [place] [address] Performed By: #### 2 4323-8 #### [facility] CLIA [id number] [address] [place] [address] [place] Bilirubin [Mass/Vol] 0.2 mg/dL Normal 0.2-1.3 [facility] Comment on above: Order Comment: Speci men Type: BLOOD SPECIMEN Order[facility]: [facility] Address: [address] [place] [address] Performed By: #### 2 4323-8 #### [facility] CLIA [id number] [address] [place] [address] [place] Calcium [Mass/Vol] 10.1 mg/dL Normal 8.5-10.2 [facility] Comment on above: Order Comment: Speci men Type: BLOOD SPECIMEN Ordering Facility: [facility] Address: [address] [place] [address] Performed By: #### 2 4323-8 #### [facility] CLIA [id number] [address] [place] [address] [place] Chloride [Moles/Vol] 103 mmol/L Normal 98-107 [facility] Comment on above: Order Comment: Speci men Type: BLOOD SPECIMEN Order[facility] Facility: [facility] Address: [address] [place] [address] Performed By: #### 2 4323-8 #### [facility] CLIA [id number] [address] [place] [address] [place] CO2 [Moles/Vol] 16 mmol/L Low 22-30 [facility] Comment on above: Order Comment: Speci men Type: BLOOD SPECIMEN [facility] Facility: [facility] Address: [address] [place] [address] Performed By: #### 2 4323-8 #### [facility] CLIA [id number] [address] [place] [address] [place] Creatinine [Mass/Vol] 1.35 mg/dL High 0.58-0.96 [facility] Comment on above: Order Comment: Speci men Type: BLOOD SPECIMEN Ordering Facility: [facility] Address: [address] [place] [address] Performed By: #### 2 4323-8 #### [facility] CLIA [id number] [address] [place] [address] [place] eGFRcr SerPlBld CKD-EPI 2020 41 mL/min/1.73m??? Low >=60 [facility] Comment on above: Order Comment: Speci men Type: BLOOD SPECIMEN Order[facility] Facility: [facility] Address: [address] [place] [address] Result Comment: Haylee mated Glomerular Filtration Rate [...] GFR. Performed By: #### 2 4323-8 #### [facility] CLIA [id number] [address] [place] [address] [place] Glucose [Mass/Vol] 155 mg/dL High 74-99 [facility] Comment on above: Order Comment: Colten bustamante Type: BLOOD SPECIMEN Ordering Facility: [facility] Address: [address] [id number] Result Comment: The [place] Diabetes Association (ADA) provides guidance for cutoff [...] Standards of Medical Care in Diabetes 2016, [place] Diabetes Association. Diabetes Care. 2016.39(Suppl 1). Performed By: #### 2 4323-8 #### [facility] [id number] [address] [place] [address] [place] Potassium [Moles/Vol] 3.9 mmol/L Normal 3.7-5.1 [facility] Comment on above: Order Comment: Colten bustamante Type: BLOOD SPECIMEN Ordering Facility: [facility] Address: [address] [place] [address] Performed By: #### 2 4323-8 #### [facility] CLIA [id number] [address] [place] [address] [place] Protein [Mass/Vol] 8.0 g/dL Normal 6.3-8.0 [facility] Comment on above: Order Comment: Speci men Type: BLOOD SPECIMEN [facility] Facility: [facility] Address: [address] [place] [address] Performed By: #### 2 4323-8 #### [facility] CLIA [id number] [address] [place] [address] [place] Sodium [Moles/Vol] 136 mmol/L Normal 136-144 [facility] Comment on above: Order Comment: Speci men Type: BLOOD SPECIMEN [facility]: [facility] Address: [address] [place] [address] Performed By: #### 2 4323-8 #### [facility] CLIA [id number] [address] [place] [address] [place] Urea nitrogen [Mass/Vol] 19 mg/dL Normal 7-21 [facility] Comment on above: Order Comment: Speci men Type: BLOOD SPECIMEN [facility] Facility: [facility] Address: [address] [place] [address] Performed By: #### 2 4323-8 #### [facility] CLIA [id number] [address] [place] [address] [place] Ferritin SerPl-mCncon 2024 Ferritin [Mass/Vol] 330.0 ng/mL High 14.7-205.1 [facility] Comment on above: Order Comment: Speci men Type: BLOOD SPECIMEN Order[facility]: [facility] Address: [address] [place] [address] Performed By: #### 2 4331-1 #### [facility] CLIA [id number] [address] [place] [address] [place] [facility] CLIA [id number] [address] [place] [address] [place] #### 10890-2, 2276-4 #### [facility] CLIA [id number] [address] [place], [place] [address] [place] Iron and Iron binding capaci ty panelon 05-08-2025 Iron [Mass/Vol] 142 ug/dL Normal 41-186 [facility] Comment on above: Order Comment: Speci men Type: BLOOD SPECIMEN Order[facility]: [facility] Address: [address] [place] [address] Performed By: #### 2 4331-1 #### [facility] CLIA [id number] [address] [place] [address] [place] [address] [place] #### 24746-8, 2275-4 #### [facility] CLIA [id number] [address] [place] [address] [place] Iron binding capacity [Mass/Vol] 309 ug/dL Normal 232-386 [facility] Comment on above: Order Comment: Speci men Type: BLOOD SPECIMEN Order[facility] Facility: [facility] Address: [address] [place] [address] Performed By: #### 2 4331-1 #### [facility] CLIA [id number] [address] [place] [address] [place] [id number] [place] [address] [place] #### 11714-1, 2275-4 #### [facility] CLIA [id number] [address] [place] [address] [place] Iron/TIBC [Molar ratio] 46.0 % Normal 15.0-57.0 [facility] Comment on above: Order Comment: Speci men Type: BLOOD SPECIMEN Order[facility]: [facility] Address: [address] [place] [address] Performed By: #### 2 4331-1 #### [facility] CLIA [id number] [address] [place] [address] [place] [facility] CLIA [id number] [address] [place] [address] [place] #### 23149-6, 2275-4 #### [facility] CLIA [id number] [address] [place] [address] [place] Lipid 1996 panelon 5 Cholesterol [Mass/Vol] 141 mg/dL Normal <200 [facility] Comment on above: Order Comment: Speci men Type: BLOOD SPECIMEN Order[facility] Facility: [facility] Address: [address] [place] [address] Result Comment: <200 mg/dL, Desirable 200-239 mg/dL, Borderline high >239 mg/dL, High Performed By: #### 2 4331-1 #### [facility] CLIA [id number] [address] [place] [address] [place] [facility] CLIA [id number] [address] [place] [address] [place] #### 31513-3, 2275-12 #### [facility] CLIA [id number] [address] [place] [address] [place] Cholesterol in HDL [Mass/Vol] 65 mg/dL Normal >39 [facility] Comment on above: Order Comment: Speci men Type: BLOOD SPECIMEN Ordering Facility: [facility] Address: [address] [place] [address] Result Comment: 40-5 9 mg/dL, Acceptable >59 mg/dL, High: Negative risk factor for coronary heart disease <40 mg/dL, Low: Positive risk factor for coronary heart disease Performed By: #### 2 4331-1 #### [facility] CLIA [id number] [address] [place] [address] [place] [facility] CLIA [id number] [address] [place] [address] [place] #### 87857-8, 6-4 #### [facility] CLIA [id number] [address] [place] Cholesterol in LDL [Mass/Vol] 47 mg/dL Normal <100 [facility] Comment on above: Order Comment: Colten bustamante Type: BLOOD SPECIMEN Ordering Facility: [facility] Address: [address] [place] [address] Result Comment: <100 mg/dL, Optimal 100-129 mg/dL, Near optimal/above optimal 130-159 mg/dL, Borderline high 160-189 mg/dL, High >189 mg/dL, Very high Secondary prevention optimal LDL Cholesterol levels are recommended to be <70 mg/dL LDL cholesterol is calculated using the Dukes-NIH equation. Performed By: #### 2 4331-1 #### [facility] CLIA [id number] [address] [place] [address] [place] [facility] CLIA [id number] [address] [place] [address] [place] #### 56371-4, 2275- #### [facility] CLIA [id number] [facility] [place] [address] [place] Cholesterol in LDL/Cholesterol in HDL [Mass ratio] 0.72 {ratio} Normal <2.54 [facility] Comment on above: Order Comment: Colten robby Type: BLOOD SPECIMEN Order[facility]: [facility] Address: [address] [place] [address] Result Comment: Cirilo malhotra: 1. National Cholesterol Education Program ATP III Guideline At-A-Glance Quick Desk Reference: National Heart, Lung, and Blood [place]. National Institutes of Health. 2001: NIH Publication No. 01-3305. 2. An International Atherosclerosis Society position paper: global recommendations for the management of dyslipidemia: executive summary, Atherosclerosis. 2014: 232(2):410-413. Performed By: #### 2 4331-1 #### [facility] CLIA [id number] [address] [place], [place] [address] [place] [facility] CLIA [id number] [address] [place] [address] [place] #### 69219-2, 2275- #### [facility] CLIA [id number] [address] [place], [place] [address] [place] Cholesterol in VLDL [Mass/Vol] 25 mg/dL Normal <30 [facility] Comment on above: Order Comment: Speci men Type: BLOOD SPECIMEN [facility] Facility: [facility] Address: [address] [place] [address] Performed By: #### 2 4331-1 #### [facility] CLIA [id number] [address] [place] [address] [place] [facility] CLIA [id number] [address] [place] [address] [place] #### 28623-2, 2275-12 #### [facility] CLIA [id number] [address] [place], [place] [address] [place] Cholesterol non HDL [Mass/Vol] 76 mg/dL Normal <130 [facility] Comment on above: Order Comment: Colten bustamante Type: BLOOD SPECIMEN Ordering Facility: [facility] Address: [address] [place] [address] Result Comment: <130 mg/dL, Optimal 130-159 mg/dL, Near optimal/above optimal 160-189 mg/dL, Borderline high 190-219 mg/dL, High >219 mg/dL, Very high Secondary prevention optimal non HDL Cholesterol levels are recommended to be <100 mg/dL Performed By: #### 2 4331-1 #### [facility] CLIA [id number] [address] [place], [place] [address] [place] [facility] CLIA [id number] [address] [place] [address] [place] #### 68243-4, 2275-12 #### [facility] CLIA [id number] [address] [address] [place] Cholesterol.total/Cho lesterol in HDL [Mass ratio] 2.17 {ratio} Normal <5.10 [facility] Comment on above: Order Comment: Speci men Type: BLOOD SPECIMEN Ordering Facility: [facility] Address: [address] [place], [place] [address] Performed By: #### 2 4331-1 #### [facility] CLIA [id number] [address] [place] [address] [place] [facility] CLIA [id number] [address] [place] [address] [place] #### 75807-6, 2275-12 #### [facility] CLIA [id number] [address] [place] [address] [place] FASTING TIME 12 hrs Normal [facility] Comment on above: Order Comment: Speci men Type: BLOOD SPECIMEN Ordering Facility: [facility] Address: [address] [place] [address] Performed By: #### 2 4331-1 #### [facility] CLIA [id number] [address] [place] [id number] [place] [facility] CLIA [id number] [address] [place] [address] [place] #### 21280-0, 2275-12 #### [facility] CLIA [id number] [address] [place] [address] [place] Triglyceride [Mass/Vol] 180 mg/dL High <150 [facility] Comment on above: Order Comment: Colten bustamante Type: BLOOD SPECIMEN Ordering Facility: [facility] Address: [address] [place] [address] Result Comment: <150 mg/dL, Normal 150-199 mg/dL, Borderline high 200-499 mg/dL, High >499 mg/dL, Very high Performed By: #### 2 4331-1 #### [facility] CLIA [id number] [address] [place] [address] [place] [facility] CLIA [id number] [address] [place] [address] [place] #### 35649-8, 2276-4 #### [facility] CLIA [id number] [address] [place] [address] [place] Zinc SerPl-mCncon 05-08-2025 Zinc [Mass/Vol] 74 ug/dL Normal 60-120 [facility] Comment on above: Order Comment: Colten bustamante Type: BLOOD SPECIMEN Ordering Facility: [facility] Address: [address] [place] [address] Result Comment: This test was developed, and its performance characteristics determined by the [facility] Department of Pathology and Laboratory Medicine. It has not been cleared or approved by the FDA. The [facility] Department of Pathology and Laboratory Medicine is regulated under CLIA as qualified to perform high-complexity testing. This test is used for clinical purposes. It should not be regarded as investigational or for research. Performed By: #### 5 763-8, COPPER #### [facility] CLIA [id number] [address] [place] [address] [place] CNPKristyn 04-29-2025 KANDYN Telephone (ADALBERTO) AMALIA CORRAL ([id number]) 1950 F Date Time Provider Department 04/29/25 LISA CLEMENTE During your visit today, we recorded the following information about you: Taylor Joseph 04/29/2025 10:53 AM Signed Patient's daughgter Aric called and stated that Pat was seen at [facility] ER and was referred to see hematology. Please review chart and advise on scheduling, we will call daughter Aric back to schedule at [phone] DX:Iron Deficiency Anemia Referring: Lisa Cadena 05/01/2025 [...] 5,000 Units by mouth once daily. - BASAGLDONELL KENDALANEL U-100 INSULIN 100 unit/mL (3 mL) INJECT [...] [R79.89] 05/29/2023 04/18/2025 Coronary artery disease involving port lions morgan*05/29/2023 At risk for delirium [Z91.89] 05/29/2023 [...] 04/19/2025 Elev (more content not included)... Normal [facility] ED NOTEon 04-26-2025 ED NOTE HNO ID: [id number] Author: USHA GOODWIN RN Service: ? Author Type: Registered Nurse Type: ED Notes Filed: 04/26/2025 12:17 Note Text: Patient informed: the name of medication, why we are giving it, possible side effects, what they may expect to feel, and was offered a chance to ask questions, prior to the administration of Bactrim [facility] ED NOTE HNO ID: [id number] Author: USHA GOODWIN RN Service: ? Author Type: Registered Nurse Type: ED Notes Filed: 04/26/2025 10:45 Note Text: Pt arrives with swelling and redness located at right forearm. Pt recently admitted to hospital after fall, spent 6 days in [facility]. Pt discharged on . [facility] ED PROV NOTEon 04-26-2025 ED PROV NOTE HNO ID: [id number] Author: SELENA EUBANKS MD Service: Emergency Medicine [...] 11/19/2023 With Micra implant; Dr. Strong at [facility] CARDIOVERSION x2 CHOLECYSTECTOMY 10/01/1982 Cholecystectomy MICRA AV LEADLESS PACEMAKER 11/19/2023 With AVN catheter ablation; Dr. Strong at [facility] PERCUTANEOUS CORONARY INTERVENTION 06/01/2023 LAD AND RCA [...] AF None Sister Ischemic Heart Disease Brother [place] 66 Social History Tobacco Use Smoking status: [...] heart fail (more content not included)... Normal [facility] ANES POSTPROC EVALon 025 ANES POSTPROC EVAL HNO ID: [id number] Author: ASAEL WRIGHT MD Service: ? Author Type: Anesthesiologist Type: Anesthesia Postprocedure Evaluation Filed: 04/23/2025 10:55 Note Text: POST ANESTHESIA EVALUATION NOTE : 1950 Procedure Summary Date: 04/23/25 Room / Location: [facility] Endoscopy Anesthesia Start: 928 Anesthesia Stop: 1013 Procedure: COLONOSCOPY DIAGNOSTIC Diagnosis: Scheduled Providers: Cassi Love MD; Asael Wright MD; Sanam Patel APRN.SHIP ENGINES OPERATING ENGINEER Responsible Provider: Asael Wright MD Anesthesia Type: [...] April 23, 2025 TIME: 10:55 AM CSN: [id number] Normal [facility] ANES PRE-OPon 04-23-2025 ANES PRE-OP HNO ID: [id number] Author: ASAEL WRIGHT MD Service: ? Author Type: Anesthesiologist Type: Anesthesia Preprocedure Evaluation Filed: 04/23/2025 09:08 Note Text: ANESTHESIOLOGY DAY OF SURGERY NOTE : 1950 Procedure Information Date/Time: 04/23/25 0945 Scheduled providers: Cassi Love MD; Asael Wright MD; Sanam Patel APRN.SHIP ENGINES OPERATING ENGINEER Procedure: COLONOSCOPY DIAGNOSTIC Location: [facility] Endoscopy Estimated body mass index is [...] block (HCC) (+) Coronary artery disease involving port lions coronary artery of port lions heart without angina pectoris (+) Essential hypertension [...] and consent discussed: yes. Patient / Responsible Green Party agrees to proceed: yes Patient / Surrogate [...] none. Vitals Value Taken Time BP 136/66 04/23/25823 Pulse 73 04/23/25823 Resp 16 04/23/25823 Temp 36.7 ?C (98.1 ?F) 04/23/25823 SpO2 97 % 04/23/25823 Facility-Administered Medications as of 04/23/2025 Medication Dose [...] [Transfer Hold] acetylc (more content not included)... [facility] BRIEF OP NOTon 04-23-2025 BRIEF OP NOT HNO ID: [id number] Author: CASSI LOVE MD Service: Gastroenterology Author Type: Physician Type: Brief Op Note Filed: 04/23/2025 10:08 Note Text: BRIEF OPERATIVE NOTE LOG ID: * No surgery found * SURGERY/PROCEDURE DATE: 04/23/2025 INCISION/PROCEDURE START TIME: 933 INCISION CLOSE/PROCEDURE END TIME: 1004 SURGEON(S)/PROCEDURALIST(S) AND ASSOCIATE DIRECTOR OF SALES(S): Cassi Love MD PROCEDURE(S): Colonoscopywith snare polypectomy [...] 2025 TIME: 9:26 AM PAGER/CONTACT #: Normal [facility] Basic metabolic 2000 panelon 04-23-2025 Anion gap [Moles/Vol] 15 mmol/L Normal 8-15 [facility] Comment on above: Order Comment: Speci men Type: BLOOD SPECIMEN Ordering Facility: [facility] Address: [address] [place] [address] Performed By: #### 2 4320-2, #### [facility] CLIA [id number] [address] [place] [address] [place] Calcium [Mass/Vol] 8.8 mg/dL Normal 8.5-10.2 [facility] Comment on above: Order Comment: Speci men Type: BLOOD SPECIMEN Ordering Facility: [facility] Address: [address] [place] [address] Performed By: #### 2 4321-2, #### [facility] CLIA [id number] [address] [place] [address] [place] Chloride [Moles/Vol] 106 mmol/L Normal 98-107 [facility] Comment on above: Order Comment: Speci men Type: BLOOD SPECIMEN Ordering Facility: [facility] Address: [address] [place] [address] Performed By: #### 2 432-2, #### [facility] CLIA [id number] [address] [place] [address] [place] CO2 [Moles/Vol] 21 mmol/L Low 22-30 [facility] Comment on above: Order Comment: Speci men Type: BLOOD SPECIMEN Ordering Facility: [facility] Address: [address] [place] [address] Performed By: #### 2 4321-2, #### [facility] CLIA [id number] [address] STATES [facility] Creatinine [Mass/Vol] 1.14 mg/dL High 0.58-0.96 [facility] Comment on above: Order Comment: Colten bustamante Type: BLOOD SPECIMEN Ordering Facility: [facility] Address: [address] [place] [address] Performed By: #### 2 4321-2, #### [facility] CLIA [id number] [address] [place] eGFRcr SerPlBld CKD-EPI 2020 50 mL/min/1.73m??? Low >=60 [facility] Comment on above: Order Comment: Colten bustamante Type: BLOOD SPECIMEN Ordering Facility: [facility] Address: [address] [place] [address] Result Comment: Haylee mated Glomerular Filtration Rate [...] GFR. Performed By: #### 2 4321-2, #### [facility] CLIA [id number] [address] STATES OF [place] [facility] Glucose [Mass/Vol] 95 mg/dL Normal 74-99 [facility] Comment on above: Order Comment: Colten robby Type: BLOOD SPECIMEN Ordering Facility: [facility] Address: [address] [place] [address] Result Comment: The [place] Diabetes Association (ADA) provides guidance for cutoff [...] Standards of Medical Care in Diabetes 2016, [place] Diabetes Association. Diabetes Care. 2016.39(Suppl 1). Performed By: #### 2 4321-2, #### [facility] CLIA [id number] [address] STATES OF [place] [facility] Potassium [Moles/Vol] 3.6 mmol/L Low 3.7-5.1 [facility] Comment on above: Order Comment: Colten bustamante Type: BLOOD SPECIMEN Ordering Facility: [facility] Address: [address] [place] [address] Performed By: #### 2 4321-2, #### [facility] CLIA [id number] [address] OF [place] [facility] Sodium [Moles/Vol] 142 mmol/L Normal 136-144 [facility] Comment on above: Order Comment: Colten bustamante Type: BLOOD SPECIMEN Ordering Facility: [facility] Address: [address] [place] [address] Performed By: #### 2 1-2, #### [facility] CLIA [id number] [address] Urea nitrogen [Mass/Vol] 10 mg/dL Normal 7-21 [facility] Comment on above: Order Comment: Colten bustamante Type: BLOOD SPECIMEN Ordering Facility: [facility] Address: [address] [place] [address] Performed By: #### 2 4321-2, #### [facility] CLIA [id number] [address] [place] CBC panel Auto (Bld)on 04-23 Erythrocyte distribution width (RBC) [Ratio] 21.5 % High 11.5-15.0 [facility] Comment on above: Order Comment: Colten bustamante Type: BLOOD SPECIMEN Ordering Facility: [facility] Address: [address] [address] Performed By: #### 5 8410-2 #### [facility] CLIA [id number] [address] Hematocrit (Bld) [Volume fraction] 31.5 % Low 36.0-46.0 [facility] Comment on above: Order Comment: Speci men Type: BLOOD SPECIMEN Ordering Facility: [facility] Address: [address] [place] [address] Performed By: #### 5 8410-2 #### [facility] CLIA [id number] [address] Hemoglobin (Bld) [Mass/Vol] 9.6 g/dL Low 11.5-15.5 [facility] Comment on above: Order Comment: Speci men Type: BLOOD SPECIMEN Ordering Facility: [facility] Address: [address] [place] [address] Performed By: #### 5 8410-2 #### [facility] CLIA [id number] [address] MCH (RBC) [Entitic mass] 24.9 pg Low 26.0-34.0 [facility] Comment on above: Order Comment: Speci men Type: BLOOD SPECIMEN Ordering Facility: [facility] Address: [address] [place] [address] Performed By: #### 5 8410-2 #### [facility] CLIA [id number] [address] MCHC (RBC) [Mass/Vol] 30.5 g/dL Normal 30.5-36.0 [facility] Comment on above: Order Comment: Speci men Type: BLOOD SPECIMEN Ordering Facility: [facility] Address: [address] [place] [address] Performed By: #### 5 8410-2 #### [facility] CLIA [id number] [address] MCV (RBC) [Entitic vol] 81.6 fL Normal 80.0-100.0 [facility] Comment on above: Order Comment: Speci men Type: BLOOD SPECIMEN Ordering Facility: [facility] Address: [address] [place] [address] Performed By: #### 5 8410-2 #### [facility] CLIA [id number] [address] [place] [address] [place] Nucleated RBC (Bld) [#/Vol] 10*3/uL Normal <0.01 [facility] Comment on above: Order Comment: Speci men Type: BLOOD SPECIMEN Ordering Facility: [facility] Address: [address] [place] [address] Performed By: #### 5 8410-2 #### [facility] CLIA [id number] [address] [place] [address] [place] Platelet mean volume (Bld) [Entitic vol] 9.0 fL Normal 9.0-12.7 [facility] Comment on above: Order Comment: Speci men Type: BLOOD SPECIMEN Ordering Facility: [facility] Address: [address] [place] [address] Performed By: #### 5 8410-2 #### [facility] CLIA [id number] [address] [place] [address] [place] Platelets (Bld) [#/Vol] 339 10*3/uL Normal 150-400 [facility] Comment on above: Order Comment: Speci men Type: BLOOD SPECIMEN Ordering Facility: [facility] Address: [address] [place] [address] Performed By: #### 5 8410-2 #### [facility] CLIA [id number] [address] [place] [address] [place] RBC (Bld) [#/Vol] 3.86 10*6/uL Low 3.90-5.20 [facility] Comment on above: Order Comment: Speci men Type: BLOOD SPECIMEN Ordering Facility: [facility] Address: [address] [place] [address] Performed By: #### 5 8410-2 #### [facility] CLIA [id number] [address] [place] [address] [place] WBC (Bld) [#/Vol] 8.65 10*3/uL Normal 3.70-11.00 [facility] Comment on above: Order Comment: Guyi men Type: BLOOD SPECIMEN Ordering Facility: [facility] Address: [address] [id number] Performed By: #### 5 8410-2 #### [facility] CLIA [id number] [address] [place] [address] [place] CNDSon 04-23-2025 CNDS HNO ID: [id number] Author: SAL SANTIAGO MD Service: Hospital Medicine [...] Provider: Sal Santiago MD Primary Service: , [facility] Consulting: Cassi Love MD MY CONDITION AT [...] Gastroenterology placed. Sunday-Sunday after 9 am, call jig boring machine set up operator at [phone] ext-0 and ask for the appointment line [...] lung Active Problems: Coronary artery disease involving port lions coronary artery of port lions heart without angina pectoris Type 2 diabetes [...] results. FOLLOW-UP APPOINTMENTS ALREADY SCHEDULED WITH A [facility] PROVIDER: Future Appointments Date Time Provider Department Center 11/18/2025 11:40 AM Chloe Strong MD [facility] [place] [facility] ALLERGIES Allergen Reactions Marco Inhibitors Cough Losartan Po (more content not included)... Normal [facility] HISTORY PHYSICALon HISTORY PHYSICAL HNO ID: [id number] Author: CASSI LOVE MD Service: Gastroenterology Author [...] DATE: April 23, 2025 TIME: 9:25 AM Normal [facility] OPERATIVE NOon 04-23-2025 OPERATIVE NO HNO ID: [id number] Author: CASSI LOVE MD Service: Gastroenterology Author Type: Physician Type: Operative Report Filed: 04/23/2025 15:58 Note Text: [facility] - Operative Report AMALIA CORRAL : 1950 AGE: 74. SEX: F PATIENT TYPE: I [facility]: Medical LOCATION: [facility] ATTENDING PHYSICIAN: SAL SANTIAGO CSN NUMBER: [id number] DATE OF SURGERY/PROCEDURE: 04/23/2025 INCISION/PROCEDURE START TIME: The scope in time was 09:34. INCISION CLOSE/PROCEDURE END TIME: The scope out time was 10:04. PREOPERATIVE DIAGNOSIS: Iron-deficiency anemia. POSTOPERATIVE DIAGNOSIS: 1. Descending colon polyp. 2. Diverticular disease of left colon. 3. Small internal and external hemorrhoids. SURGEON: Cassi Love M.D. ASSOCIATE DIRECTOR OF SALES: Esme Goldman. SURGERY/PROCEDURE: Colonoscopy with snare polypectomy. ANESTHESIA: MAC. INDICATIONS: The patient is a 74-year-old female, who presents with iron- deficiency anemia. A colonoscopy undertaken to rule out a colonic etiology. CONSENT: The procedure was explained to the patient and her daughter. Informed consent was obtained from the patient's daughter prior to the procedure. She has durable power of deputy county attorney. DESCRIPTION OF PROCEDURE: The procedure was performed [...] May discharge home with close outpatient followup. Zahraa Shelley:[id number] /[id number] Normal [facility] Pathology biopsy report Art (Tiss)on 04-23-2025 AP DISCLAIMER Normal [facility] Comment on above: Order Comment: Speci men Type: BLOOD SPECIMEN Ordering Facility: [facility] Address: [address] [place] [address] Result Comment: Brandon Genao Test (LDT) Disclaimer: Performance characteristics of immunohistochemical, immunofluorescent, and chromogenic in-situ hybridization tests have been determined by the performing laboratory within [facility]'s Artur Chung Pathology and Laboratory Medicine Department ([facility], [facility], [facility], [facility], [facility], [facility], or [facility]) in a manner consistent with CLIA requirements. One or more of these tests may not have been cleared or approved by the FDA. [facility] is regulated under CLIA as qualified to perform high-complexity testing. These tests are used for clinical purposes. These should not be regarded as investigational or for research. Positive and negative controls stain appropriately. Performed By: #### 5 8410-2 #### [facility] CLIA [id number] [address] CASE REPORT Normal [facility] Comment on above: Order Comment: Colten bustamante Type: BLOOD SPECIMEN Ordering Facility: [facility] Address: [address] [place] [address] Result Comment: [facility] Pathology Report Case: [id number] Authorizing Provider: Cassi Love MD Collected: 04/23/2025 10:01 AM Ordering Location: [facility] Endoscopy Received: 04/23/2025 11:48 AM Pathologist: Marine Staton MD Specimen: Colon, Descending, Polyp Performed By: #### 5 8410-2 #### [facility] CLIA [id number] [address] CLINICAL HISTORY AP Normal [facility] Comment on above: Order Comment: Colten bustamante Type: BLOOD SPECIMEN Order[facility] Facility: [facility] Address: [address] [place] [address] Performed By: #### 5 8410-2 #### [facility] CLIA [id number] [address] FINAL DIAGNOSIS Normal [facility] Comment on above: Order Comment: Colten bustamante Type: BLOOD SPECIMEN Order[facility] Facility: [facility] Address: [address] [place] [address] Result Comment: A. C olon, descending, polyp, biopsy - Tubular adenoma at 1537 EDT Performed By: #### 5 8410-2 #### [facility] CLIA [id number] [address] FINAL PERFORMING LAB Normal [facility] Comment on above: Order Comment: Speci men Type: BLOOD SPECIMEN Order[facility] Facility: [facility] Address: [address] [place] [address] Result Comment: Diag nostic interpretation performed at: [facility], [address] [place] [address], [address]k [address] [place] [address] CLIA# [id number] Rn Home Health: Nico Carson MD Performed By: #### 5 8410-2 #### [facility] CLIA [id number] [address] GROSS DESCRIPTION [facility] Comment on above: Order Comment: Speci men Type: BLOOD SPECIMEN Ordering Facility: [facility] Address: [address] [place] [address] Result Comment: Aguilar shanks, Rodney, Polyp Received in formalin is one piece of ennis-brown, soft tissue measuring 0.5 x 0.4 x 0.3 cm. Totally submitted in one cassette. DL April 23, 2025 8:21 PM Gross examination performed at [facility], [address] [place] [address] Performed By: #### 5 8410-2 #### [facility] CLIA [id number] [address] THERAPY NTon 04-23-2025 THERAPY NT HNO ID: [id number] Author: DORI BERGERON PTA Service: Physical Therapy Author Type: Garage Hand Type: Therapy (PT/OT/Speech/Resp) Filed: 04/23/2025 09:03 Note Text: Attestation signed by Elena Larsen, PT at 04/23/2025 6:05 PM I reviewed and agree with the documentation corresponding to this therapy visit. SIGNATURE: Elena Larsen, PT DATE: April 23, 2025 TIME: 6:05 PM Summary: PT Treat PHYSICAL THERAPY MISSED VISIT SERVICE DATE: 04/23/2025 SERVICE TIME: 0903 ROOM: [facility] (02) Patient not seen due to Test / Procedure. Will re-attempt as pt is available SIGNATURE: Dori Bergeron PTA PATIENT NAME: Amalia Corral DATE: April 23, 2025 TIME: 9:03 AM [facility] 04-22-2025 [facility] HNO ID: [id number] Author: SAL SANTIAGO MD Service: Hospital Medicine [...] Provider: Sal Santiago MD Primary Service: , [facility] Consulting: Cassi Love MD MY CONDITION AT [...] Gastroenterology placed. Sunday-Sunday after 9 am, call jig boring machine set up operator at [phone] ext-[phone] and ask for the appointment line to schedule an appointment. You had a colonoscopy during your hospital stay to evaluate for any problems that could cause anemia. SUMMARY OF WHAT HAPPENED WHILE I WAS IN THE HOSPITAL: see above OTHER PROBLEMS/DIAGNOSIS: Principal Problem (Resolved): Community acquired pneumonia of right lower lobe of lung Active Problems: Coronary artery disease involving port lions coronary artery of port lions heart without angina pectoris Type 2 diabetes [...] results. FOLLOW-UP APPOINTMENTS ALREADY SCHEDULED WITH A [facility] PROVIDER: Future Appointments Date Time Provider Department Center 04/22/2025 11:15 AM Cassi Love MD [facility] 11/18/2025 11:40 AM Se Ligia (more content not included)... Normal [facility] CONSULT PROGon 04-22-2025 CONSULT PROG HNO ID: [id number] Author: CASSI LOVE MD Service: Gastroenterology Author [...] EGD and colonoscopy with daughter/POA Aric Block ([phone]) and she is agreeable to proceed. - [...] -- 63.6 kg (140 lb 3.4 oz) 04/21/25 2244 96/57 -- -- 78 -- 96 % -- 04/21/252242 90/52 36.7 ?C (98.1 ?F) Oral 77 18 96 % -- 04/21/251 128/61 -- -- 71 -- 99 % -- 04/21/251926 100/68 36.7 ?C (98.1 ?F) Oral 68 18 97 % -- GENERAL: Alert AND oriented x 2 (self and place, not time). Cooperative. NAD EYES: No scleral icterus SKIN: [place] in color. No jaundice LUNGS: Clear to [...] Negative Negative Ketones, Urine Negative Negative Specific Dyke, Ur 1.005 - 1.030 1.015 Hemoglobin/Blood,Ur Negative [...] (Agent of (more content not included)... Normal [facility] NURSING PROGon 04-22-2025 NURSING PROG HNO ID: [id number] Author: MORGAN MENDOZA, REAL Service: Nursing Author Type: Registered Nurse Type: Nursing Progress Note Filed: 04/22/2025 14:12 Note Text: PATIENT EDUCATION HEART FAILURE PATIENT NAME: Amalia Corral [facility][id number] SURVIVAL SKILLS: Low Sodium Diet Weight Monitoring [...] d/t dementia diagnosis. Electronically Signed By: Morgan Jenningsley [facility] ANES POSTPROC EVALon 025 ANES POSTPROC EVAL HNO ID: [id number] Author: ASAEL WRIGHT MD Service: ? Author Type: Anesthesiologist Type: Anesthesia Postprocedure Evaluation Filed: 04/21/2025 15:15 Note Text: POST ANESTHESIA EVALUATION NOTE : 1950 Procedure Summary Date: 04/21/25 Room / Location: [facility] Endoscopy Anesthesia Start: 903 Anesthesia Stop: [...] April 21, 2025 TIME: 3:15 PM CSN: [id number] [facility] ANES PRE-OPon 04-21-2025 ANES PRE-OP HNO ID: [id number] Author: ASAEL WRIGHT MD Service: ? Author Type: Anesthesiologist Type: Anesthesia Preprocedure Evaluation Filed: 04/21/2025 08:48 Note Text: ANESTHESIOLOGY DAY OF SURGERY NOTE : 1950 Procedure Information Date/Time: 04/21/25 0845 Scheduled providers: Cassi Love MD; Asael Wright MD Procedure: EGD DIAGNOSTIC Location: [facility] Endoscopy Estimated body mass index is [...] block (HCC) (+) Coronary artery disease involving port lions coronary artery of port lions heart without angina pectoris (+) Essential hypertension [...] and consent discussed: yes. Patient / Responsible Green Party agrees to proceed: yes Patient / Surrogate [...] 6 Units SUBCUTANEOUS BID [Order Held by [facility]] dapagliflozin propanediol 10 mg tab(s) (FARXIGA) [...] by mouth two (more content not included)... [facility] BRIEF OP NOTon 04-21-2025 BRIEF OP NOT HNO ID: [id number] Author: CASSI LOVE MD Service: Gastroenterology Author Type: Physician Type: Brief Op Note Filed: 04/21/2025 09:28 Note Text: BRIEF OPERATIVE NOTE LOG ID: [id number] SURGERY/PROCEDURE DATE: 04/21/2025 INCISION/PROCEDURE START TIME: 909 INCISION CLOSE/PROCEDURE END TIME: 922 SURGEON(S)/PROCEDURALIST(S) AND ASSOCIATE DIRECTOR OF SALES(S): Surgeons and Role: * Cassi Love MD - Proceduralist No Additional Staff PROCEDURE(S): #1 esophagogastroduodenoscopy with biopsies #2 indirect dilation of the esophagus using 58 Martiniquais Baeza dilator ANESTHESIA: MAC FINDINGS: see dictated [...] 21, 2025 TIME: 9:08 AM PAGER/CONTACT #: [facility] Basic metabolic 2000 panelon 04-21-2025 Anion gap [Moles/Vol] 13 mmol/L Normal 8-15 [facility] Comment on above: Order Comment: Speci men Type: BLOOD SPECIMEN [facility]ing Facility: [facility] Address: [address] [place] [address] Performed By: #### 2 4321-2, #### [facility] CLIA [id number] [address] [place] [address] [place] Calcium [Mass/Vol] 9.1 mg/dL Normal 8.5-10.2 [facility] Comment on above: Order Comment: Speci men Type: BLOOD SPECIMEN Ordering Facility: [facility] Address: [address] [place] [address] Performed By: #### 2 4321-2, #### [facility] CLIA [id number] [address] [place] [address] [place] Chloride [Moles/Vol] 106 mmol/L Normal 98-107 [facility] Comment on above: Order Comment: Speci men Type: BLOOD SPECIMEN Ordering Facility: [facility] Address: [address] [place] [address] Performed By: #### 2 4321-2, #### [facility] CLIA [id number] [address] [place] [address] [place] [facility] CO2 [Moles/Vol] 23 mmol/L Normal 22-30 [facility] Comment on above: Order Comment: Speci men Type: BLOOD SPECIMEN Ordering Facility: [facility] Address: [address] [place] [address] Performed By: #### 2 4321-2, #### [facility] CLIA [id number] [address] [place] [address] [place] Creatinine [Mass/Vol] 1.32 mg/dL High 0.58-0.96 [facility] Comment on above: Order Comment: Speci men Type: BLOOD SPECIMEN Ordering Facility: [facility] Address: [address] [place] [address] Performed By: #### 2 4321-2, #### [facility] CLIA [id number] [address] [place] eGFRcr SerPlBld CKD-EPI 2020 42 mL/min/1.73m??? Low >=60 [facility] Comment on above: Order Comment: Speci men Type: BLOOD SPECIMEN Ordering Facility: [facility] Address: [address] [place] [address] Result Comment: Haylee mated Glomerular Filtration Rate [...] GFR. Performed By: #### 2 432-2, #### [facility] CLIA [id number] [address] [place] [address] [place] Glucose [Mass/Vol] 85 mg/dL Normal 74-99 [facility] Comment on above: Order Comment: Colten bsutamante Type: BLOOD SPECIMEN Ordering Facility: [facility] Address: [address] [place] [address] Result Comment: The [place] Diabetes Association (ADA) provides guidance for cutoff [...] Standards of Medical Care in Diabetes 2016, [place] Diabetes Association. Diabetes Care. 2016.39(Suppl 1). Performed By: #### 2 432-, #### [facility] CLIA [id number] [address] [place] [address] [place] Potassium [Moles/Vol] 3.8 mmol/L Normal 3.7-5.1 [facility] Comment on above: Order Comment: Colten bustamante Type: BLOOD SPECIMEN Ordering Facility: [facility] Address: [address] [place] [address] Performed By: #### 2 4321-2, #### [facility] CLIA [id number] [address] Sodium [Moles/Vol] 142 mmol/L Normal 136-144 [facility] Comment on above: Order Comment: Speci men Type: BLOOD SPECIMEN Ordering Facility: [facility] Address: [address] [place] [address] Performed By: #### 2 4321-2, #### [facility] CLIA [id number] [address] [place] Urea nitrogen [Mass/Vol] 25 mg/dL High 7- [facility] Comment on above: Order Comment: Speci men Type: BLOOD SPECIMEN Ordering Facility: [facility] Address: [address] [place] [address] Performed By: #### 2 432-2, #### [facility] CLIA [id number] [address] CBC panel Auto (Bld)on 04-21 Erythrocyte distribution width (RBC) [Ratio] 20.7 % High 11.5-15.0 [facility] Comment on above: Order Comment: Speci men Type: BLOOD SPECIMEN Ordering Facility: [facility] Address: [address] [place] [address] Performed By: #### 2 4320-2, #### [facility] CLIA [id number] [address] OF [place] [facility] Hematocrit (Bld) [Volume fraction] 31.5 % Low 36.0-46.0 [facility] Comment on above: Order Comment: Speci men Type: BLOOD SPECIMEN Ordering Facility: [facility] Address: [address] [place] [address] Performed By: #### 2 432-2, #### [facility] CLIA [id number] [address] [place] Hemoglobin (Bld) [Mass/Vol] 9.6 g/dL Low 11.5-15.5 [facility] Comment on above: Order Comment: Speci men Type: BLOOD SPECIMEN Ordering Facility: [facility] Address: [address] [place] [address] Performed By: #### 2 432-2, #### [facility] CLIA [id number] [address] MCH (RBC) [Entitic mass] 24.8 pg Low 26.0-34.0 [facility] Comment on above: Order Comment: Speci men Type: BLOOD SPECIMEN Ordering Facility: [facility] Address: [address] [place] [address] Performed By: #### 2 432-2, #### [facility] CLIA [id number] [address] MCHC (RBC) [Mass/Vol] 30.5 g/dL Normal 30.5-36.0 [facility] Comment on above: Order Comment: Speci men Type: BLOOD SPECIMEN Ordering Facility: [facility] Address: [address] [place] [address] Performed By: #### 2 2, #### [facility] CLIA [id number] [address] MCV (RBC) [Entitic vol] 81.4 fL Normal 80.0-100.0 [facility] Comment on above: Order Comment: Speci men Type: BLOOD SPECIMEN Ordering Facility: [facility] Address: [address] [place] [address] Performed By: #### 2 2, #### [facility] CLIA [id number] [address] Nucleated RBC (Bld) [#/Vol] 10*3/uL Normal <0.01 [facility] Comment on above: Order Comment: Speci men Type: BLOOD SPECIMEN Ordering Facility: [facility] Address: [address] [place] [address] Performed By: #### 2 2, #### [facility] CLIA [id number] [address] OF [place] Platelet mean volume (Bld) [Entitic vol] 9.1 fL Normal 9.0-12.7 [facility] Comment on above: Order Comment: Speci men Type: BLOOD SPECIMEN Ordering Facility: [facility] Address: [address] [place] [address] Performed By: #### 2 4321-2, #### [facility] CLIA [id number] [address] [place] Platelets (Bld) [#/Vol] 313 10*3/uL Normal 150-400 [facility] Comment on above: Order Comment: Speci men Type: BLOOD SPECIMEN Ordering Facility: [facility] Address: [address] [place] [address] Performed By: #### 2 4321-2, #### [facility] CLIA [id number] [address] [place] [address] [place] RBC (Bld) [#/Vol] 3.87 10*6/uL Low 3.90-5.20 [facility] Comment on above: Order Comment: Speci men Type: BLOOD SPECIMEN Ordering Facility: [facility] Address: [address] [place] [address] Performed By: #### 2 432-2, #### [facility] CLIA [id number] [address] [place] WBC (Bld) [#/Vol] 6.71 10*3/uL Normal 3.70-11.00 [facility] Comment on above: Order Comment: Speci men Type: BLOOD SPECIMEN Ordering Facility: [facility] Address: [address] [place] [address] Performed By: #### 2 432-2, #### [facility] CLIA [id number] [address] [place] CNDSon 04-21-2025 CNDS HNO ID: [id number] Author: SAL SANTIAGO MD Service: Hospital Medicine [...] Provider: Sal Santiago MD Primary Service: , [facility] Consulting: Cassi Love MD MY CONDITION AT [...] Gastroenterology placed. Sunday-Sunday after 9 am, call jig boring machine set up operator at [phone] and ask for the appointment line to schedule an appointment. Eat soft foods until 04/23 since you had an endoscopy with dilation. SUMMARY OF WHAT HAPPENED WHILE I WAS IN THE HOSPITAL: see above OTHER PROBLEMS/DIAGNOSIS: Principal Problem (Resolved): Community acquired pneumonia of right lower lobe of lung Active Problems: Coronary artery disease involving port lions coronary artery of port lions heart without angina pectoris Type 2 diabetes [...] results. FOLLOW-UP APPOINTMENTS ALREADY SCHEDULED WITH A [facility] PROVIDER: Future Appointments Date Time Provider Department Center 11/18/2025 11:40 AM Chloe Strong MD [facility] [place] [facility] ALLERGIES Allergen Reactions Marco Inhibitors Cough Losartan Potassium Rash At higher doses (ok at low dose) DISCHARGE MEDICATION: Medication List START taking these (more content not included)... Normal [facility] HISTORY PHYSICALon HISTORY PHYSICAL HNO ID: [id number] Author: CASSI LOVE MD Service: Gastroenterology Author [...] April 21, 2025 TIME: 9:06 AM Normal [facility] Magnesium SerPl-mCncon 04-21 Magnesium [Mass/Vol] 2.3 mg/dL Normal 1.7-2.3 [facility] Comment on above: Order Comment: Speci men Type: BLOOD SPECIMEN Ordering Facility: [facility] Address: [address] [place] [address] Performed By: #### 2 4321-2, 85324-8 #### [facility] CLIA [id number] [address] [place] [id number] [place] [address] OPERATIVE NOon 04-21-2025 OPERATIVE NO HNO ID: [id number] Author: CASSI LOVE MD Service: Gastroenterology Author Type: Physician Type: Operative Report Filed: 04/21/2025 14:08 Note Text: [facility] - Operative Report AMALIA CORRAL : 1950 AGE: 74. SEX: F PATIENT TYPE: I HOSP SVC: Medical LOCATION: [facility] ATTENDING PHYSICIAN: SAL SANTIAGO CSN NUMBER: [id number] DATE OF SURGERY/PROCEDURE: 04/21/2025 INCISION/PROCEDURE START TIME: [...] (acquired), uneventful dilation. SURGEON: Cassi Love M.D. ASSOCIATE DIRECTOR OF SALES: Bina Marques. SURGERY/PROCEDURE: 1. Esophagogastroduodenoscopy with biopsies. [...] of esophagus: The esophagus was dilated using 58-Martiniquais Baeza dilator. The patient tolerated the procedure [...] evaluation of iron-deficiency anemia. Cassi Love M.D. JACQUE:[id number] /[id number] [facility] Pathology biopsy report Art (Tiss)on 04-21-2025 AP DISCLAIMER [facility] Comment on above: Order Comment: Colten bustamante Type: BLOOD SPECIMEN Order[facility] Facility: [facility] Address: [address] [place] [address] Result Comment: Brandon Genao Test (LDT) Disclaimer: Performance characteristics of immunohistochemical, immunofluorescent, and chromogenic in-situ hybridization tests have been determined by the performing laboratory within [facility] Pathology and Laboratory Medicine Department ([facility], [facility], [facility], [facility], [facility], [facility], or [facility]) in a manner consistent with CLIA requirements. One or more of these tests may not have been cleared or approved by the FDA. [facility] is regulated under CLIA as qualified to perform high-complexity testing. These tests are used for clinical purposes. These should not be regarded as investigational or for research. Positive and negative controls stain appropriately. Performed By: #### 5 8410-2 #### [facility] CLIA [id number] [address] [place] CASE REPORT [facility] Comment on above: Order Comment: Colten bustamante Type: BLOOD SPECIMEN Order[facility] Facility: [facility] Address: [address] [place] [address] Result Comment: [facility] Pathology Report Case: [id number] Authorizing Provider: Cassi Love MD Collected: 04/21/2025 09:12 AM Ordering Location: [facility] Endoscopy Received: 04/21/2025 09:56 AM Pathologist: Marybel Lion MD Specimens: A) - Small Bowel, Duodenum, Biopsy, R/O Celiac B) - Stomach, Biopsy, R/O H Pylori C) - Esophagogastric Junction, Biopsy, R/O Rogers's Performed By: #### 5 8410-2 #### [facility] CLIA [id number] [address] DIAGNOSIS COMMENT C. Correlation with the endoscopic findings is required in order to determine if this fulfills the criteria for Rogers's esophagus. [facility] Comment on above: Order Comment: Colten bustamante Type: BLOOD SPECIMEN Order[facility] Facility: [facility] Address: [address] [place] [address] Performed By: #### 5 8410-2 #### [facility] CLIA [id number] [address] FINAL DIAGNOSIS [facility] Comment on above: Order Comment: Colten bustamante Type: BLOOD SPECIMEN Ordering Facility: [facility] Address: [address] [place] [address] Result Comment: A. D uodenum, biopsy: - No significant pathologic change. B. Stomach, biopsy: - Focal erosion and changes consistent with reactive gastropathy. - No morphologic evidence of Helicobacter pylori. C. Esophagogastric junction, biopsy: - Squamocolumnar mucosa with focal intestinal metaplasia, negative for dysplasia. See comment. CAROL/darrick 04/22/2025 at 1047 EDT Performed By: #### 5 8410-2 #### [facility] CLIA [id number] [address] FINAL PERFORMING LAB [facility] Comment on above: Order Comment: Colten [facility] Type: BLOOD SPECIMEN Order[facility] Facility: [facility] Address: [address] [place] [address] Result Comment: Diag nostic interpretation performed at: [facility], [address] [place] [address], [place] [address] CLIA# [id number] [facility]: Nico Carson MD Performed By: #### 5 8410-2 #### [facility] CLIA [id number] [address] GROSS DESCRIPTION [facility] Comment on above: Order Comment: Colten [facility] Type: BLOOD SPECIMEN Order[facility] Facility: [facility] Address: [address] [place] [address] Result Comment: A. S mall Bowel, Duodenum, [...] 2025 2:27 PM Gross examination performed at [facility], [facility] [place] [address] Performed By: #### 5 8410-2 #### [facility] CLIA [id number] [address] [place] [address] [address] [facility] THERAPY NTon 04-21-2025 THERAPY NT HNO ID: [id number] Author: RANDI KELLY OT/L Service: Occupational Therapy Author Type: Occupational Therapist Type: Therapy (PT/OT/Speech/Resp) Filed: 04/21/2025 12:05 Note Text: Summary: OT Evaluation Occupational Therapy Evaluation Summary SERVICE DATE: 04/21/2025 SERVICE TIME: 1128 to 1151 ROOM: [id number] OT 6 Clicks Score: 20 DISCHARGE RECOMMENDATIONS [...] and Awareness TREATMENT INTERVENTIONS Evaluation, Therapeutic Activity (40026) Timed Code Treatment (minutes): 8 Skilled Treatment Time (minutes): 23 TRAINING AND EDUCATION PROVIDED Assistive Device Use, Benefits of In-Hospital Mobility, Cognitive Skills, Cognitive Prosthetics, Command Following, Discharge Planning, Executive Functions/Problem Solving, Functional Mobility Involving ADLs, Grooming Tasks, Identification of Systems of Support, Role of Occupational Therapy, Safety/Judgment, Standing Balance to Improve [place] with ADLs/Self-Care, Transfer - Bed to Chair, Transfer - Sit to Stand (more content not included)... [facility] THERAPY NT HNO ID: [id number] Author: RANDI KELLY OT/L Service: Occupational Therapy Author Type: Occupational Therapist Type: Therapy (PT/OT/Speech/Resp) Filed: 04/21/2025 08:22 Note Text: OCCUPATIONAL THERAPY MISSED VISIT SERVICE DATE: 04/21/2025 SERVICE TIME: 08 ROOM: [facility] () Patient not seen due to Test / Procedure. Will re-attempt as schedule allows. SIGNATURE: TAVO Meraz PATIENT NAME: Amalia Corral DATE: April 21, 2025 TIME: 8:21 AM [facility] Basic metabolic 2000 panelon 04-20-2025 Anion gap [Moles/Vol] 13 mmol/L Normal 8-15 [facility] Comment on above: Order Comment: Speci men Type: BLOOD SPECIMEN [facility] Facility[facility] Address: [address] [place] [address] Performed By: #### 2 4321-2, 17257-1 #### [facility] CLIA [id number] [address] [place] [address] [place] Calcium [Mass/Vol] 8.9 mg/dL Normal 8.5-10.2 [facility] Comment on above: Order Comment: Speci men Type: BLOOD SPECIMEN Ordering Facility: [facility] Address: [address] [place] [address] Performed By: #### 2 4321-2, #### [facility] CLIA [id number] [address] [place] [address] [place] Chloride [Moles/Vol] 103 mmol/L Normal 98-107 [facility] Comment on above: Order Comment: Speci men Type: BLOOD SPECIMEN Ordering Facility: [facility] Address: [address] [place] [address] Performed By: #### 2 4321-2, #### [facility] CLIA [id number] [address] [place] [address] [place] CO2 [Moles/Vol] 23 mmol/L Normal 22-30 [facility] Comment on above: Order Comment: Speci men Type: BLOOD SPECIMEN Ordering Facility: [facility] Address: [address] [place] [address] Performed By: #### 2 4321-2, #### [facility] CLIA [id number] [address] [place] [address] [place] Creatinine [Mass/Vol] 1.24 mg/dL High 0.58-0.96 [facility] Comment on above: Order Comment: Speci men Type: BLOOD SPECIMEN Ordering Facility: [facility] Address: [address] [place] [address] Performed By: #### 2 4321-2, #### [facility] CLIA [id number] [address] [place] [address] [place] eGFRcr SerPlBld CKD-EPI 2020 45 mL/min/1.73m??? Low >=60 [facility] Comment on above: Order Comment: Speci men Type: BLOOD SPECIMEN Ordering Facility: [facility] Address: [address] [place] [address] Result Comment: Haylee mated Glomerular Filtration Rate [...] reflect actual GFR. Performed By: #### 2 4320-, #### [facility] CLIA [id number] [address] [place] [address] [place] Glucose [Mass/Vol] 95 mg/dL Normal 74-99 [facility] Comment on above: Order Comment: Colten bustamante Type: BLOOD SPECIMEN Ordering Facility: [facility] Address: [address] [place] [address] Result Comment: The [place] Diabetes Association (ADA) provides guidance for cutoff [...] Standards of Medical Care in Diabetes 2016, [place] Diabetes Association. Diabetes Care. 2016.39(Suppl 1). Performed By: #### 2 4320-11, #### [facility] CLIA [id number] [address] [place] [id number] [place] Potassium [Moles/Vol] 3.6 mmol/L Low 3.7-5.1 [facility] Comment on above: Order Comment: Colten bustamante Type: BLOOD SPECIMEN Ordering Facility: [facility] Address: [address] [place] [address] Performed By: #### 2 4320-11, #### [facility] CLIA [id number] [address] [place] [address] [place] Sodium [Moles/Vol] 139 mmol/L Normal 136-144 [facility] Comment on above: Order Comment: Speci men Type: BLOOD SPECIMEN Order[facility] Facility: [facility] Address: [address] [place] [address] Performed By: #### 2 4321-2, 99999-8 #### [facility] CLIA [id number] [address] Urea nitrogen [Mass/Vol] 34 mg/dL High 04-20 [facility] Comment on above: Order Comment: Speci men Type: BLOOD SPECIMEN Ordering Facility: [facility] Address: [address] [place] [address] Performed By: #### 2 4321-2, #### [facility] CLIA [id number] [address] [place] CBC panel Auto (Bld)on 04-20 Erythrocyte distribution width (RBC) [Ratio] 20.4 % High 11.5-15.0 [facility] Comment on above: Order Comment: Speci men Type: BLOOD SPECIMEN Order[facility] Facility: [facility] Address: [address] [place] [address] Performed By: #### 5 8410-2 #### [facility] CLIA [id number] [address] Hematocrit (Bld) [Volume fraction] 30.7 % Low 36.0-46.0 [facility] Comment on above: Order Comment: Speci men Type: BLOOD SPECIMEN Ordering Facility: [facility] Address: [address] [place] [address] Performed By: #### 5 8410-2 #### [facility] CLIA [id number] [address] [place] Hemoglobin (Bld) [Mass/Vol] 9.2 g/dL Low 11.5-15.5 [facility] Comment on above: Order Comment: Speci men Type: BLOOD SPECIMEN Ordering Facility: [facility] Address: [address] [place] [address] Performed By: #### 5 8410-2 #### [facility] CLIA [id number] [address] MCH (RBC) [Entitic mass] 24.1 pg Low 26.0-34.0 [facility] Comment on above: Order Comment: Speci men Type: BLOOD SPECIMEN Ordering Facility: [facility] Address: [address] [place] [address] Performed By: #### 5 8410-2 #### [facility] CLIA [id number] [address] MCHC (RBC) [Mass/Vol] 30.0 g/dL Low 30.5-36.0 [facility] Comment on above: Order Comment: Speci men Type: BLOOD SPECIMEN Ordering Facility: [facility] Address: [address] [place] [address] Performed By: #### 5 8410-2 #### [facility] CLIA [id number] [address] MCV (RBC) [Entitic vol] 80.4 fL Normal 80.0-100.0 [facility] Comment on above: Order Comment: Speci men Type: BLOOD SPECIMEN Ordering Facility: [facility] Address: [address] [place] [address] Performed By: #### 5 8410-2 #### [facility] CLIA [id number] [address] Nucleated RBC (Bld) [#/Vol] 10*3/uL Normal <0.01 [facility] Comment on above: Order Comment: Speci men Type: BLOOD SPECIMEN Ordering Facility: [facility] Address: [address] [place] [address] Performed By: #### 5 8410-2 #### [facility] CLIA [id number] [address] Platelet mean volume (Bld) [Entitic vol] 9.1 fL Normal 9.0-12.7 [facility] Comment on above: Order Comment: Speci men Type: BLOOD SPECIMEN Ordering Facility: [facility] Address: [address] [place] [address] Performed By: #### 5 8410-2 #### [facility] CLIA [id number] [address] [place] [address] [place] Platelets (Bld) [#/Vol] 281 10*3/uL Normal 150-400 [facility] Comment on above: Order Comment: Speci men Type: BLOOD SPECIMEN [facility]ing Facility: [facility] Address: [address] [place] [address] Performed By: #### 5 8410-2 #### [facility] CLIA [id number] [address] [place] [address] [place] RBC (Bld) [#/Vol] 3.82 10*6/uL Low 3.90-5.20 [facility] Comment on above: Order Comment: Speci men Type: BLOOD SPECIMEN [facility]ing Facility: [facility] Address: [address] [place] [address] Performed By: #### 5 8410-2 #### [facility] CLIA [id number] [address] [place] [address] [place] WBC (Bld) [#/Vol] 5.82 10*3/uL Normal 3.70-11.00 [facility] Comment on above: Order Comment: Speci men Type: BLOOD SPECIMEN Ordering Facility: [facility] Address: [address] [place] [address] Performed By: #### 5 8410-2 #### [facility] CLIA [id number] [address] CONSULTon 04-20-2025 CONSULT HNO ID: [id number] Author: CASSI LOVE MD Service: Gastroenterology Author [...] patient. Per discussion with daughter/POA, Aric Block ([phone]), with whom patient lives with, states intermittent [...] 11/19/2023 With Micra implant; Dr. Strong at [facility] CARDIOVERSION x2 CHOLECYSTECTOMY 10/01/1982 Cholecystectomy MICRA AV LEADLESS PACEMAKER 11/19/2023 With AVN catheter ablation; Dr. Strong at [facility] PERCUTANEOUS CORONARY INTERVENTION 06/01/2023 LAD AND RCA [...] Take 25 (more content not included)... Normal [facility] Magnesium SerPl-mCncon 04-20 Magnesium [Mass/Vol] 2.1 mg/dL Normal 1.7-2.3 [facility] Comment on above: Order Comment: Speci men Type: BLOOD SPECIMEN [facility]ing Facility: [facility] Address: [address] [place] [address] Performed By: #### 2 4321-2, 55651-6 #### [facility] CLIA [id number] [address] [place], [place] [address] [place] [address] [place] THERAPY NTon 04-20-2025 THERAPY NT HNO ID: [id number] Author: RANDI KELLY OT/Natalie Service: Occupational Therapy Author Type: Occupational Therapist Type: Therapy (PT/OT/Speech/Resp) Filed: 04/20/2025 14:47 Note Text: Summary: OT Missed Visit OCCUPATIONAL THERAPY MISSED VISIT SERVICE DATE: 04/20/2025 SERVICE TIME: 1446 ROOM: [id number] Patient not seen due to Patient Not Available. PT working with pt at bedside. Will re-attempt as schedule allows. SIGNATURE: Randi Kelly OT/Natalie PATIENT NAME: Amalia Corral DATE: April 20, 2025 TIME: 2:46 PM [facility] THERAPY NT HNO ID: [id number] Author: MARC REZA PT Service: Physical Therapy Author Type: Physical Therapist Type: Therapy (PT/OT/Speech/Resp) Filed: 04/20/2025 15:44 Note Text: Summary: PT evaluation Physical Therapy Evaluation Summary SERVICE DATE: 04/20/2025 SERVICE TIME: 1444 to 1517 ROOM: [id number] PT 6 Clicks Score: 20 DISCHARGE RECOMMENDATIONS [...] Weakness (generalized) TREATMENT INTERVENTIONS Evaluation, Therapeutic Activity (60272), Gait Training (23203) Timed Code Treatment (minutes): 18 Skilled Treatment Time (minutes): 33 $ Evaluation-Low (71964) Billed Units: 1 unit Therapeutic Activity (75811) Treatment Minutes: 4 $ Therapeutic Activity (55029) Billed Units: 0 units Gait Training (42541) Treatment Minutes: 14 $ Gait Training (33423) Billed Units: 1 unit TRAINING AND EDUCATION [...] Chair Transfer Eq (more content not included)... Normal [facility] Bacteria Ur Culton 5 Bacteria identified Cx Nom (U) CULTURE, URINE: No growth (<1,000 CFU/ml) Normal [facility] Comment on above: Performed By: #### 2 4321-2, #### [facility] CLIA [id number] [address] [place] [address] [place] Basic metabolic 2000 panelon 04-19-2025 Anion gap [Moles/Vol] 14 mmol/L Normal 8-15 [facility] Comment on above: Order Comment: Speci men Type: BLOOD SPECIMEN Ordering Facility: [facility] Address: [address] [place] [address] Performed By: #### 2 4321-2, #### [facility] CLIA [id number] [address] [place] [address] [place] Calcium [Mass/Vol] 8.9 mg/dL Normal 8.5-10.2 [facility] Comment on above: Order Comment: Speci men Type: BLOOD SPECIMEN Ordering Facility: [facility] Address: [address] [place] [address] Performed By: #### 2 4321-2, #### [facility] CLIA [id number] [address] [place] [address] [place] Chloride [Moles/Vol] 105 mmol/L Normal 98-107 [facility] Comment on above: Order Comment: Colten bustamante Type: BLOOD SPECIMEN [facility]ing Facility: [facility] Address: [address] [place] [address] Performed By: #### 2 4321-2, #### [facility] CLIA [id number] [address] STATES OF [place] CO2 [Moles/Vol] 21 mmol/L Low 22-30 [facility] Comment on above: Order Comment: Colten bustamante Type: BLOOD SPECIMEN Ordering Facility: [facility] Address: [address] [place] [address] Performed By: #### 2 2, #### [facility] CLIA [id number] [address] STATES OF [place] Creatinine [Mass/Vol] 1.22 mg/dL High 0.58-0.96 [facility] Comment on above: Order Comment: Colten bustamante Type: BLOOD SPECIMEN Ordering Facility: [facility] Address: [address] [place] [address] Performed By: #### 2 2, #### [facility] CLIA [id number] [address] OF [place] eGFRcr SerPlBld CKD-EPI 2020 46 mL/min/1.73m??? Low >=60 [facility] Comment on above: Order Comment: Colten bustamante Type: BLOOD SPECIMEN Ordering Facility: [facility] Address: [address] [place] [address] Result Comment: Haylee mated Glomerular Filtration Rate [...] reflect actual GFR. Performed By: #### 2 432 #### [facility] CLIA [id number] [address] [place] [address] [place] Glucose [Mass/Vol] 86 mg/dL Normal 74-99 [facility] Comment on above: Order Comment: Colten bustamante Type: BLOOD SPECIMEN Ordering Facility: [facility] Address: [address] [place] [address] Result Comment: The [place] Diabetes Association (ADA) provides guidance for cutoff [...] Standards of Medical Care in Diabetes 2016, [place] [employer]. Diabetes Care. 2016.39(Suppl 1). Performed By: #### 2 #### [facility] CLIA [id number] [address] [place] [address] [place] Potassium [Moles/Vol] 3.8 mmol/L Normal 3.7-5.1 [facility] Comment on above: Order Comment: Colten bustamante Type: BLOOD SPECIMEN [facility] Facility: [facility] Address: [address] [place] [address] Performed By: #### 2 #### [facility] CLIA [id number] [address] [place] [address] [place] Sodium [Moles/Vol] 140 mmol/L Normal 136-144 [facility] Comment on above: Order Comment: Colten bustamante Type: BLOOD SPECIMEN [facility]ing Facility: [facility] Address: [address] [place] [address] Performed By: #### 2 #### [facility] CLIA [id number] [address] [place] [address] [place] Urea nitrogen [Mass/Vol] 28 mg/dL High 7-21 [facility] Comment on above: Order Comment: Speci men Type: BLOOD SPECIMEN Ordering Facility: [facility] Address: [address] [place] [address] Performed By: #### 2 4321-2, 49352-8 #### [facility] CLIA [id number] [address] [place] CBC panel Auto (Bld)on 04-19 Erythrocyte distribution width (RBC) [Ratio] 20.1 % High 11.5-15.0 [facility] Comment on above: Order Comment: Speci men Type: BLOOD SPECIMEN Ordering Facility: [facility] Address: [address] [place] [address] Performed By: #### 5 8410-2 #### [facility] CLIA [id number] [address] [place] Hematocrit (Bld) [Volume fraction] 28.8 % Low 36.0-46.0 [facility] Comment on above: Order Comment: Speci men Type: BLOOD SPECIMEN Ordering Facility: [facility] Address: [address] [place] [address] Performed By: #### 5 8410-2 #### [facility] CLIA [id number] [address] [place] Hemoglobin (Bld) [Mass/Vol] 8.5 g/dL Low 11.5-15.5 [facility] Comment on above: Order Comment: Speci men Type: BLOOD SPECIMEN [facility]ing Facility: [facility] Address: [address] [place] [address] Performed By: #### 5 8410-2 #### [facility] CLIA [id number] [address] [place] MCH (RBC) [Entitic mass] 23.6 pg Low 26.0-34.0 [facility] Comment on above: Order Comment: Speci men Type: BLOOD SPECIMEN Ordering Facility: [facility] Address: [address] [place] [address] Performed By: #### 5 8410-2 #### [facility] CLIA [id number] [address] MCHC (RBC) [Mass/Vol] 29.5 g/dL Low 30.5-36.0 [facility] Comment on above: Order Comment: Speci men Type: BLOOD SPECIMEN Ordering Facility: [facility] Address: [address] [place] [address] Performed By: #### 5 8410-2 #### [facility] CLIA [id number] [address] [place] MCV (RBC) [Entitic vol] 80.0 fL Normal 80.0-100.0 [facility] Comment on above: Order Comment: Speci men Type: BLOOD SPECIMEN Ordering Facility: [facility] Address: [address] [place] [address] Performed By: #### 5 8410-2 #### [facility] CLIA [id number] [address] Nucleated RBC (Bld) [#/Vol] 10*3/uL Normal <0.01 [facility] Comment on above: Order Comment: Speci men Type: BLOOD SPECIMEN Ordering Facility: [facility] Address: [address] [place] [address] Performed By: #### 5 8410-2 #### [facility] CLIA [id number] [address] Platelet mean volume (Bld) [Entitic vol] 9.0 fL Normal 9.0-12.7 [facility] Comment on above: Order Comment: Speci men Type: BLOOD SPECIMEN Ordering Facility: [facility] Address: [address] [place] [address] Performed By: #### 5 8410-2 #### [facility] CLIA [id number] [address] Platelets (Bld) [#/Vol] 253 10*3/uL Normal 150-400 [facility] Comment on above: Order Comment: Speci men Type: BLOOD SPECIMEN Ordering Facility: [facility] Address: [address] [place] [address] Performed By: #### 5 8410-2 #### [facility] CLIA [id number] [address] [place] [address] [place] RBC (Bld) [#/Vol] 3.60 10*6/uL Low 3.90-5.20 [facility] Comment on above: Order Comment: Speci men Type: BLOOD SPECIMEN Ordering Facility: [facility] Address: [address] [place] [address] Performed By: #### 5 8410-2 #### [facility] CLIA [id number] [address] [place] WBC (Bld) [#/Vol] 6.43 10*3/uL Normal 3.70-11.00 [facility] Comment on above: Order Comment: Speci men Type: BLOOD SPECIMEN Ordering Facility: [facility] Address: [address] [place] [address] Performed By: #### 5 8410-2 #### [facility] CLIA [id number] [address] CONSULTon 04-19-2025 CONSULT HNO ID: [id number] Author: MCKENZIE SWANN MD Service: Cardiovascular Disease Author Type: Physician Type: Consults Filed: 04/19/2025 12:15 Note Text: [facility] [place] [facility] Barrett Department of Cardiovascular Medicine SECTION OF REGIONAL CARDIOLOGY Clinical Cardiology Consultation Note Name: Amalia Corral : 1950 Primary Physician: Rajat Patel MD Consulting Physician: Sal Santiago MD Primary Veterinary Meat Inspector: Reason of Consultation: Acute decompensated heart failure SERVICE DATE: April 19, 2025 Assessment/ Plan: Permanent atrial fibrillation, [id number] score 7 (age, female, coronary disease, heart [...] 60% ostial LCx, 50% proximal RCA, LHC 2023), ischemic cardiomyopathy (EF 40%), moderate aortic [...] 11/19/2023 With Micra implant; Dr. Strong at [facility] CARDIOVERSION x2 CHOLECYSTECTOMY 10/01/1982 Cholecystectomy MICRA AV LEADLESS PACEMAKER 11/19/2023 With AVN catheter ablation; Dr. Strong at [facility] PERCUTANEOUS CORONARY INTERVENTION 06/01/2023 LAD AND RCA [...] AF None Sister Ischemic Heart Disease Brother [place] 66 Social History Tobacco Use Smoking status: [...] PRN aluminum-ma (more content not included)... Normal [facility] Legionella Ag Ur Qlon 2024 Legionella sp Ag Ql (U) Negative Normal Negative [facility] Comment on above: Order Comment: Speci men Type: URINE SPECIMEN Order[facility] Facility: [facility] Address: [address] [place] [address] Result Comment: Legi onella urinary antigen test is used as an aid in diagnosis of infection with Legionella pneumophila serogroup 1. It may be detected from a few days to several months after onset of signs and symptoms despite antibiotic therapy or disease resolution. A negative result cannot exclude Legionellosis. Clinical correlation is required. Performed By: #### 3 2781-7 #### [facility] CLIA [id number] [address] [place] [address] [place] [address] [place] Magnesium SerPl-mCncon 04-19 Magnesium [Mass/Vol] 2.5 mg/dL High 1.7-2.3 [facility] Comment on above: Order Comment: Speci men Type: BLOOD SPECIMEN Ordering Facility: [facility] Address: [facility] [place] [address] Performed By: #### 2 4321-2, 80846-3 #### [facility] CLIA [id number] [address] [place] STREPTOCOCCUS PNEUMONIAE ANT IGEN URINEon 04-19-2025 STREPTOCOCCUS PNEUMONIAE ANTIGEN URINE STREP PNEUMO AG RESULT: Negative for Streptococcus pneumoniae antigen. Presumptive negative for pneumococcal pneumonia, suggesting no current or recent pneumococcal infection. Infection due to S.pneumoniae cannot be ruled out since the antigen present in the sample may be below the detection limit of the test. Normal [facility] Comment on above: Performed By: #### 2 276-4, 02709-1 #### [facility] CLIA [id number] [address] [place] ALLIED HEALTHon 04-18-2025 ALLIED HEALTH HNO ID: [id number] Author: KAR DICKINSON RT(R) Service: Radiology Author [...] PATIENT PRESENTS WITH AN IMPLANTABLE OR ATTACHED QUALITY CONTROL HEAD: No RADIOLOGY DEPARTMENT: CT; Exam(s) Completed: Abdomen/Pelvis PERIPHERAL IV DATA: Not applicable SIGNED BY: RT Lam(R) April 18, 2025 3:11 PM [facility] ALLIED HEALTH HNO ID: [id number] Author: KAR DICKINSON RT(R) Service: Radiology Author [...] PATIENT PRESENTS WITH AN IMPLANTABLE OR ATTACHED QUALITY CONTROL HEAD: No RADIOLOGY DEPARTMENT: CT; Exam(s) Completed: Brain and Spine and General X-ray: Exam(s) Completed: Chest X-Ray Spine X-Ray(s): Sacrum/Coccyx Pelvis X-Ray: Pelvis General AP PERIPHERAL IV DATA: Not applicable SIGNED BY: RT Lam(R) April 18, 2025 1:02 PM Normal [facility] Bacteria Ur Culton Bacteria identified Cx [...] , Intermediate >32 , Resistant >64 Abnormal [facility] Comment on above: Performed By: #### 6 30-4 #### [facility] CLIA [id number] [address] [place] [address] [place] Basic metabolic 2000 panelon 04-18-2025 Anion gap [Moles/Vol] 19 mmol/L High 8-15 [facility] Comment on above: Order Comment: Speci men Type: BLOOD SPECIMEN Ordering Facility: [facility] Address: [address] [place] [address] Performed By: #### 2 4321-2, 97686-5 #### [facility] CLIA [id number] [address] [place] [address] [place] Calcium [Mass/Vol] 9.9 mg/dL Normal 8.5-10.2 [facility] Comment on above: Order Comment: Speci men Type: BLOOD SPECIMEN Ordering Facility: [facility] Address: [address] [place] [address] Performed By: #### 2 4321-2, 26019-5 #### [facility] CLIA [id number] [address] [place] [address] [place] Chloride [Moles/Vol] 100 mmol/L Normal 98-107 [facility] Comment on above: Order Comment: Speci men Type: BLOOD SPECIMEN [facility] Facility: [facility] Address: [address] [place] [address] Performed By: #### 2 4321-2, 33263-0 #### [facility] CLIA [id number] [address] [place] [address] [place] CO2 [Moles/Vol] 18 mmol/L Low 22-30 [facility] Comment on above: Order Comment: Speci men Type: BLOOD SPECIMEN [facility] Facility: [facility] Address: [address] [place] [address] Performed By: #### 2 4321-2, 49003-3 #### [facility] CLIA [id number] [address] [place] [address] [place] Creatinine [Mass/Vol] 1.26 mg/dL High 0.58-0.96 [facility] Comment on above: Order Comment: Speci men Type: BLOOD SPECIMEN [facility] Facility: [facility] Address: [address] [place] [address] Performed By: #### 2 4321-2, 10999-0 #### [facility] CLIA [id number] [address] [place] [address] [place] eGFRcr SerPlBld CKD-EPI 2020 44 mL/min/1.73m??? Low >=60 [facility] Comment on above: Order Comment: Speci men Type: BLOOD SPECIMEN Ordering Facility: [facility] Address: [address] [place] [address] Result Comment: Haylee mated Glomerular Filtration Rate [...] actual GFR. Performed By: #### 2 4321-2, 42902-3 #### [facility] CLIA [id number] [address] [place] [address] [place] Glucose [Mass/Vol] 146 mg/dL High 74-99 [facility] Comment on above: Order Comment: Colten bustamante Type: BLOOD SPECIMEN [facility] Facility: [facility] Address: [address] [place] [address] Result Comment: The [place] Diabetes Association (ADA) provides guidance for cutoff [...] Standards of Medical Care in Diabetes 2016, [place] Diabetes Association. Diabetes Care. 2016.39(Suppl 1). Performed By: #### 2 4321-2, 39763-2 #### [facility] CLIA [id number] [address] [place] [address] [place] Potassium [Moles/Vol] 4.3 mmol/L Normal 3.7-5.1 [facility] Comment on above: Order Comment: Colten bustamante Type: BLOOD SPECIMEN [facility] Facility: [facility] Address: [address] [place] [address] Performed By: #### 2 4321-2, 55117-1 #### [facility] CLIA [id number] [address] [place] [address] [place] Sodium [Moles/Vol] 137 mmol/L Normal 136-144 [facility] Comment on above: Order Comment: Colten bustamante Type: BLOOD SPECIMEN [facility]: [facility] Address: [address] [place] [address] Performed By: #### 2 4321-2, 58886-3 #### [facility] CLIA [id number] [address] [place] [address] [place] [facility] Urea nitrogen [Mass/Vol] 31 mg/dL High 7-21 [facility] Comment on above: Order Comment: Speci men Type: BLOOD SPECIMEN [facility]: [facility] Address: [address] [place] [address] Performed By: #### 2 4321-2, 43267-5 #### [facility] CLIA [id number] [address] [place] [id number] [place] CBC W Auto Differential pane l (Bld)on 04-18-2025 Basophils (Bld) [#/Vol] 10*3/uL Normal <0.11 [facility] Comment on above: Order Comment: Speci men Type: BLOOD SPECIMEN [facility] Facility: [facility] Address: [address] [place] [address] Performed By: #### 5 7021-8 #### [facility] CLIA [id number] [address] [place] [address] [place] Basophils/100 WBC (Bld) 0.2 % Normal [facility] Comment on above: Order Comment: Speci men Type: BLOOD SPECIMEN Order[facility] Facility: [facility] Address: [address] [place] [address] Performed By: #### 5 7021-8 #### [facility] CLIA [id number] [address] [place] [address] [place] [facility] Differential cell count method Nom (Bld) Auto Normal [facility] Comment on above: Order Comment: Speci men Type: BLOOD SPECIMEN [facility] Facility: [facility] Address: [address] [place] [address] Performed By: #### 5 7021-8 #### [facility] CLIA [id number] [address] [place] [address] [place] Eosinophils (Bld) [#/Vol] 0.05 10*3/uL Normal <0.46 [facility] Comment on above: Order Comment: Speci men Type: BLOOD SPECIMEN Ordering Facility: [facility] Address: [address] [place] [address] Performed By: #### 5 7021-8 #### [facility] CLIA [id number] [address] [place] [address] [place] Eosinophils/100 WBC (Bld) 0.6 % Normal [facility] Comment on above: Order Comment: Speci men Type: BLOOD SPECIMEN [facility] Facility: [facility] Address: [address] [place] [address] Performed By: #### 5 7021-8 #### [facility] CLIA [id number] [address] [place] [address] [place] Erythrocyte distribution width (RBC) [Ratio] 20.3 % High 11.5-15.0 [facility] Comment on above: Order Comment: Speci men Type: BLOOD SPECIMEN [facility] Facility: [facility] Address: [address] [place] [address] Performed By: #### 5 7021-8 #### [facility] CLIA [id number] [address] [place] [address] [place] Hematocrit (Bld) [Volume fraction] 33.1 % Low 36.0-46.0 [facility] Comment on above: Order Comment: Speci men Type: BLOOD SPECIMEN [facility] Facility: [facility] Address: [address] [place] [address] Performed By: #### 5 7021-8 #### [facility] CLIA [id number] [address] [place] [address] [place] Hemoglobin (Bld) [Mass/Vol] 9.9 g/dL Low 11.5-15.5 [facility] Comment on above: Order Comment: Speci men Type: BLOOD SPECIMEN [facility] Facility: [facility] Address: [address] [place] [address] Performed By: #### 5 7021-8 #### [facility] CLIA [id number] [address] [place] [address] [place] Immature granulocytes (Bld) [#/Vol] 10*3/uL Normal <0.10 [facility] Comment on above: Order Comment: Speci men Type: BLOOD SPECIMEN Order[facility] Facility: [facility] Address: [address] [place] [address] Performed By: #### 5 7021-8 #### [facility] CLIA [id number] [address] [place] [address] [place] Immature granulocytes/100 WBC (Bld) 0.2 % Normal [facility] Comment on above: Order Comment: Speci men Type: BLOOD SPECIMEN [facility] Facility: [facility] Address: [address] [place] [address] Performed By: #### 5 7021-8 #### [facility] CLIA [id number] [address] [place] [address] [place] Lymphocytes (Bld) [#/Vol] 0.37 10*3/uL Low 1.00-4.00 [facility] Comment on above: Order Comment: Speci men Type: BLOOD SPECIMEN [facility] Facility: [facility] Address: [address] [place] [address] Performed By: #### 5 7021-8 #### [facility] CLIA [id number] [address] [place] [address] [place] Lymphocytes/100 WBC (Bld) 4.1 % Normal [facility] Comment on above: Order Comment: Speci men Type: BLOOD SPECIMEN Ordering Facility: [facility] Address: [address] [place] [address] Performed By: #### 5 7021-8 #### [facility] CLIA [id number] [address] [place] [id number] [place] MCH (RBC) [Entitic mass] 24.2 pg Low 26.0-34.0 [facility] Comment on above: Order Comment: Speci men Type: BLOOD SPECIMEN Ordering Facility: [facility] Address: [address] [place] [address] Performed By: #### 5 7021-8 #### [facility] CLIA [id number] [address] [place] [address] [place] MCHC (RBC) [Mass/Vol] 29.9 g/dL Low 30.5-36.0 [facility] Comment on above: Order Comment: Speci men Type: BLOOD SPECIMEN Ordering Facility: [facility] Address: [address] [place] [address] Performed By: #### 5 7021-8 #### [facility] CLIA [id number] [address] [place] [address] [place] MCV (RBC) [Entitic vol] 80.9 fL Normal 80.0-100.0 [facility] Comment on above: Order Comment: Speci men Type: BLOOD SPECIMEN Ordering Facility: [facility] Address: [address] [place] [address] Performed By: #### 5 7021-8 #### [facility] CLIA [id number] [address] [place] [address] [place] Monocytes (Bld) [#/Vol] 0.88 10*3/uL High <0.87 [facility] [facility] Comment on above: Order Comment: Speci men Type: BLOOD SPECIMEN [facility]ing Facility: [facility] Address: [address] [place] [address] Performed By: #### 5 7021-8 #### [facility] CLIA [id number] [address] [place] [address] [place] Monocytes/100 WBC (Bld) 9.8 % Normal [facility] Comment on above: Order Comment: Speci men Type: BLOOD SPECIMEN Ordering Facility: [facility] Address: [address] [place] [address] Performed By: #### 5 7021-8 #### [facility] CLIA [id number] [address] [place] [address] [place] Neutrophils (Bld) [#/Vol] 7.63 10*3/uL High 1.45-7.50 [facility] Comment on above: Order Comment: Speci men Type: BLOOD SPECIMEN Ordering Facility: [facility] Address: [address] [place] [address] Performed By: #### 5 7021-8 #### [facility] CLIA [id number] [address] [place] [address] [place] Neutrophils/100 WBC (Bld) 85.1 % Normal [facility] Comment on above: Order Comment: Speci men Type: BLOOD SPECIMEN Ordering Facility: [facility] Address: [address] [place] [address] Performed By: #### 5 7021-8 #### [facility] CLIA [id number] [address] [place] [address] [place] Nucleated RBC (Bld) [#/Vol] Normal [facility] Comment on above: Order Comment: Speci men Type: BLOOD SPECIMEN Ordering Facility: [facility] Address: [address] [place] [address] Performed By: #### 5 7021-8 #### [facility] CLIA [id number] [address] [place] [address] [place] Nucleated RBC/100 WBC (Bld) [Ratio] Normal [facility] Comment on above: Order Comment: Speci men Type: BLOOD SPECIMEN Ordering Facility: [facility] Address: [address] [place] [address] Performed By: #### 5 7021-8 #### [facility] CLIA [id number] [address] [place] [address] [place] Platelet mean volume (Bld) [Entitic vol] 9.1 fL Normal 9.0-12.7 [facility] Comment on above: Order Comment: Speci men Type: BLOOD SPECIMEN Ordering Facility: [facility] Address: [address] [place] [address] Performed By: #### 5 7021-8 #### [facility] CLIA [id number] [address] [place] [address] [facility] [place] Platelets (Bld) [#/Vol] 275 10*3/uL Normal 150-400 [facility] Comment on above: Order Comment: Speci men Type: BLOOD SPECIMEN Ordering Facility: [facility] Address: [address] [place] [address] Performed By: #### 5 7021-8 #### [facility] CLIA [id number] [address] [place] [address] [place] RBC (Bld) [#/Vol] 4.09 10*6/uL Normal 3.90-5.20 [facility] Comment on above: Order Comment: Speci men Type: BLOOD SPECIMEN Ordering Facility: [facility] Address: [address] [place] [address] Performed By: #### 5 7021-8 #### [facility] CLIA [id number] [address] WBC (Bld) [#/Vol] 8.97 10*3/uL Normal 3.70-11.00 [facility] Comment on above: Order Comment: Speci men Type: BLOOD SPECIMEN Ordering Facility: [facility] Address: [address] [place] [address] Performed By: #### 5 7021-8 #### [facility] CLIA [id number] [address] [place] [address] [facility] CT ABD/PEL WO IVCONon 2024 CT ABD/PEL WO IVCON * * *Final Report* * * DATE OF EXAM: Apr 18 2025 3:10PM [facility] 0531 - CT ABD/PEL WO IVCON / [...] colon without radiographic evidence of acute diverticulitis. [place] Physical Therapist: DEENA Transcribe Date/Time: Apr 18 2025 4:01P Dictated by : CHER BERNAL MD This examination was interpreted and the report reviewed and electronically signed by: CHER BERNAL MD on Apr 18 2025 4:09PM EST [id number] Normal [facility] CT BRAIN WO IVCONon 04-18-[address] BRAIN WO IVCON * * *Final Report* * * DATE OF EXAM: Apr 18 2025 12:56PM [facility] 0504 - CT BRAIN WO IVCON / [...] (DLP) for this visit = 707.24 (accession [id number]), 208.83 (accession [id number]) mGy*cm CT Dose Reduction Employed: No dose [...] and subcortical white matter both cerebral hemispheres. [place] to represent areas of chronic ischemic change [...] Multilevel degenerative disc disease and facet arthropathy. [facility] [place] Physical Therapist: PSCAngie Transcribe Date/Time: Apr 18 2025 1:53P Dictated by : CHER BERNAL MD This examination was interpreted and the report reviewed and electronically signed by: CHER BERNAL MD on Apr 18 2025 2:00PM EST [id number] Normal [facility] CT CERVICAL SPINE WO IVCONon 04-18-2025 CT CERVICAL SPINE WO IVCON * * *Final Report* * * DATE OF EXAM: Apr 18 2025 12:56PM [facility] 0505 - CT CERVICAL SPINE WO IVCON [...] (DLP) for this visit = 707.24 (accession [id number]), 208.83 (accession [id number]) mGy*cm CT Dose Reduction Employed: No dose [...] and subcortical white matter both cerebral hemispheres. [place] to represent areas of chronic ischemic change [...] Multilevel degenerative disc disease and facet arthropathy. Per Diem Physical Therapist: DEENA Transcribe Date/Time: Apr 18 2025 1:53P Dictated by : HCER BERNAL MD This examination was interpreted and the report reviewed and electronically signed by: CHER BERNAL MD on Apr 18 2025 2:00PM EST [id number] Normal [facility] CT LUMBAR SPINE WO IVCONon 0 04-18-2025 CT LUMBAR SPINE WO IVCON * * *Final Report* * * DATE OF EXAM: Apr 18 2025 12:56PM [facility] 0508 - CT LUMBAR SPINE WO IVCON [...] are 5 lumbar-type vertebrae. Anatomic variant: None. Educational Programming Director (topogram) images: Electronic device left lower chest. [...] related to nondisplaced fracture. Anatomic Lumbar Variant: Per [place] Physical Therapist: DEENA Transcribe Date/Time: Apr 18 2025 2:00P Dictated by : LUIS STEWART MD This examination was interpreted and the report reviewed and electronically signed by: LUIS STEWART MD on Apr 18 2025 2:20PM EST [id number] Normal [facility] CT THORACIC SPINE WO IVCONon 04-18-2025 CT THORACIC SPINE WO IVCON * * *Final Report* * * DATE OF EXAM: Apr 18 2025 12:56PM [facility] 0514 - CT THORACIC SPINE WO IVCON [...] of this report, 12 rib-bearing thoracic vertebra. Educational Programming Director (topogram) images: No additional findings. Alignment: Mild [...] of the thoracic spine. Anatomic Thoracic/Lumbar Variant: Per Diem Physical Therapist: DEENA Transcribe Date/Time: Apr 18 2025 1:59P Dictated by : LUIS STEWART MD This examination was interpreted and the report reviewed and electronically signed by: LUIS STEWART MD on Apr 18 2025 2:20PM EST [id number] [facility] ECG COMPLETEon 04-18-2025 ECG COMPLETE Ventricular Rate : 7 0 BPM Atrial Rate : 70 BPM QRS Duration : 162 ms Q-T Interval : 440 ms QTC Calculation(Bazett) : 475 ms Calculated R [place] : 268 degrees Calculated T [place] : 97 degrees Ventricular-paced rhythm ABNORMAL ECG NO PREVIOUS ECGS AVAILABLE Confirmed by MD MARTINEZ VINAYAK ([id number]) on 04/21/2025 12:25:34 PM NAME : AMALIA CORRAL PID : [id number] : 1950 Gender : Female Race : ORD : [id number] Procedure Date : Apr 18 2025 11:12:17 Edit Date : Apr 21 2025 12:25:38 Diagnosis: Ventricular-paced rhythm ABNORMAL ECG NO PREVIOUS ECGS AVAILABLE Confirmed by MD MARTINEZ VINAYAK ([id number]) on 04/21/2025 12:25:34 PM Test Reason : Chest Pain Location : 191 : [facility] ED Overread By : MD MARTINEZ VINAYAK Edited By : MD MARTINEZ VINAYAK Referred By : JONATHAN, Acquired by : RAJAT ISAAC [facility] ED NOTEon 04-18-2025 ED NOTE HNO ID: [id number] Author: JORGE ALBERTO LYMAN RN Service: Emergency Medicine Author Type: Registered Nurse Type: ED Notes Filed: 04/18/2025 18:24 Note Text: Report given to transport Normal [facility] ED NOTE HNO ID: [id number] Author: JORGE ALBERTO LYMAN RN Service: Emergency Medicine Author Type: Registered Nurse Type: ED Notes Filed: 04/18/2025 18:04 Note Text: Doctor Jonathan at bedside to update pt and daughter Normal [facility] ED NOTE HNO ID: [id number] Author: JORGE ALBERTO LYMAN RN Service: Emergency Medicine Author Type: Registered Nurse Type: ED Notes Filed: 04/18/2025 17:35 Note Text: Sinclair 307-1 Report [phone] [facility] ETA 1830 [facility] ED NOTE HNO ID: [id number] Author: JORGE ALBERTO LYMAN RN Service: Emergency Medicine Author Type: Registered Nurse Type: ED Notes Filed: 04/18/2025 14:23 Note Text: Pt given crackers with meds. Normal [facility] ED NOTE HNO ID: [id number] Author: JORGE ALBERTO LYMAN RN Service: Emergency Medicine Author Type: Registered Nurse Type: ED Notes Filed: 04/18/2025 11:29 Note Text: Daughter at bedside with pt, sts pt has dementia but can tell pt is more confused than she normally is. 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 [facility] ED PROV NOTEon 04-18-2025 ED PROV NOTE HNO ID: [id number] Author: RANDI DYE DO Service: Emergency Medicine [...] 11/19/2023 With Micra implant; Dr. Strong at [facility] CARDIOVERSION x2 CHOLECYSTECTOMY 10/01/1982 Cholecystectomy MICRA AV LEADLESS PACEMAKER 11/19/2023 With AVN catheter ablation; Dr. Strong at [facility] PERCUTANEOUS CORONARY INTERVENTION 06/01/2023 LAD AND RCA [...] AF None Sister Ischemic Heart Disease Brother [place] 66 Social History Tobacco Use Smoking status: [...] eye subsco (more content not included)... Normal [facility] Ferritin [facility] 2024 Ferritin [Mass/Vol] 67.7 ng/mL Normal 14.7-205.1 [facility] Comment on above: Order Comment: Speci men Type: BLOOD SPECIMEN Ordering Facility: [facility] Address: [address] [place] [address] Performed By: #### 2 276-4, 63288-4 #### [facility] CLIA [id number] [address] [place], [place] [address] [place] Folate SerPl-mCncon 04-18-20 Folate [Mass/Vol] 14.6 ng/mL Normal >4.7 [facility] Comment on above: Order Comment: Speci men Type: BLOOD SPECIMEN Ordering Facility: [facility] Address: [address] [place] [address] Performed By: #### 2 4321-2, 85251-1 #### [facility] CLIA [id number] [address] [place] [address] [facility] [place] HIGH SENSITIVITY TROPONIN T (INITIAL)on 04-18-2025 Troponin T.cardiac High sensitivity method [Mass/Vol] 34 ng/L High <12 [facility] Comment on above: Order Comment: Colten bustamante Type: BLOOD SPECIMEN Order[facility] Facility: [facility] Address: [address] [place] [address] Performed By: #### L [id number] #### [facility] CLIA [id number] [address] [place] [address] [facility] HIGH SENSITIVITY TROPONIN T (SECOND)on 04-18-2025 Troponin T.cardiac High sensitivity method [Mass/Vol] 29 ng/L High <12 [facility] Comment on above: Order Comment: Colten bustamante Type: BLOOD SPECIMEN [facility] Facility: [facility] Address: [address] [place] [address] Performed By: #### 2 4321-2, 06056-5 #### [facility] CLIA [id number] [address] [place] [id number] [facility] HIGH SENSITIVITY TROPONIN T (THIRD) 3 HRS AFTER INITIALon 04-18-2025 Troponin T.cardiac High sensitivity method [Mass/Vol] 28 ng/L High <12 [facility] Comment on above: Order Comment: Colten bustamante Type: BLOOD SPECIMEN [facility] Facility: [facility] Address: [address] [place] [address] Performed By: #### L [id number] #### [facility] CLIA [id number] [address] [place] [address] [facility] HISTORY PHYSICALon HISTORY PHYSICAL HNO ID: [id number] Author: TANGELA FOLEY APRN.HAND TRIMMER Service: Hospital Medicine Author Type: Nurse Practitioner Type: H&P Filed: 04/18/2025 22:39 Note Text: Attestation signed by Ashley Zamudio DO at 05/26/2025 10:25 PM Attending Note I have not personally performed a face to face assessment of the patient. I have reviewed the EVELINE note. Signature: Ashley Zamudio Date: 05/26/2025 Time: 10:25 PM DEPARTMENT OF HOSPITAL MEDICINE HISTORY AND PHYSICAL EXAM SERVICE DATE: 04/18/2025 SERVICE TIME: 8:29 PM Primary Care Physician: Rajat Patel MD NIGHT AND WEEKEND COVERAGE: [facility]: Days: [phone], please page attending physician. Nights: [phone], please page [facility] Night coverage pager [phone]. Subjective CHIEF COMPLAINT: SOB HPI: This is [...] acute complaints at this time. In the [place] ED the patient was found to be [...] is being transferred to hospital medicine at [facility] for further workup and management of her [...] 11/19/2023 With Micra implant; Dr. Strong at [facility] CARDIOVERSION x2 CHOLECYSTECTOMY 10/01/1982 Cholecystectomy MICRA AV LEADLESS PACEMAKER 11/19/2023 With AVN catheter ablation; Dr. Strong at [facility] PERCUTANEOUS CORONARY INTERVENTION 06/01/2023 LAD AND RCA TOTAL ABDOMINAL HYSTERECT W/WO RMVL TUBE OVARY 10/01/1975 Hysterectomy, ALY FAMILY HISTORY Problem Relation Age of Onset None Father unknown health Stroke Mother KAREY (more content not included)... Normal [facility] HbA1c (Bld)on 04-18-2025 Average glucose Estimated from glycated hemoglobin (Bld) [Mass/Vol] 157 mg/dL Normal [facility] Comment on above: Order Comment: Colten bustamante Type: BLOOD SPECIMEN Order[facility] Facility: [facility] Address: [address] [place] [address] Result Comment: eAG: (Estimated average glucose) is a calculated value from HgbA1c and is sales representative cash registers of the average blood glucose level in the last 2-3 month period. Performed By: #### 5 5454-3 #### [facility] CLIA [id number] [address] [place] [address] [place] HbA1c (Bld) [Mass fraction] 7.1 % High 4.3-5.6 [facility] Comment on above: Order Comment: Colten bustamante Type: BLOOD SPECIMEN Ordering Facility: [facility] Address: [address] [place] [address] Result Comment: Amer [place] Diabetes Association guidelines indicate that patients with HgbA1c in the range 5.7-6.4% are at increased risk for development of diabetes, and intervention by lifestyle modification may be beneficial. HgbA1c greater or equal to 6.5% is considered diagnostic of diabetes. Performed By: #### 5 5454-3 #### [facility] CLIA [id number] [address] [place] [address] [place] Iron and Iron binding capaci ty panelon 04-18-2025 Iron [Mass/Vol] 29 ug/dL Low 41-186 [facility] Comment on above: Order Comment: Speci men Type: BLOOD SPECIMEN Order[facility] Facility: [facility] Address: [address] [place] [address] Performed By: #### 2 276-4, 01102-8 #### [facility] CLIA [id number] [address] [place] [address] [place] Iron binding capacity [Mass/Vol] 273 ug/dL Normal 232-386 [facility] Comment on above: Order Comment: Speci men Type: BLOOD SPECIMEN Order[facility] Facility: [facility] Address: [address] [place] [address] Performed By: #### 2 276-4, 23397-1 #### [facility] CLIA [id number] [address] [place] [address] [place] Iron/TIBC [Molar ratio] 10.6 % Low 15.0-57.0 [facility] Comment on above: Order Comment: Speci men Type: BLOOD SPECIMEN Ordering Facility: [facility] Address: [address] [place] [address] Performed By: #### 2 276-4, 66771-9 #### [facility] CLIA [id number] [address] [place] [address] [place] NT-proBNP SerPl-mCncon 04-18 Natriuretic peptide.B prohormone N-Terminal [Mass/Vol] 6758 pg/mL High <450 [facility] Comment on above: Order Comment: Speci men Type: BLOOD SPECIMEN Order[facility] Facility: [facility] Address: [address] [place] [address] Performed By: #### 2 4321-2, 31553-4 #### [facility] CLIA [id number] [address] [place] [address] [place] Procalcitonin SerPl-mCncon 0 04-18-2025 Procalcitonin [Mass/Vol] 1.64 ng/mL High <0.09 [facility] Comment on above: Order Comment: Speci men Type: BLOOD SPECIMEN Ordering Facility: [facility] Address: [address] [place] [address] Result Comment: For a guided interpretation of test results, please visit the Change in Procalcitonin Calculator, [email or web address]. Performed By: #### 2 4321-2, 31045-3 #### [facility] CLIA [id number] [address] [place] [address] [place] Urinalysis complete panel (U )on 04-18-2025 Bacteria LM.HPF (Urine sed) [#/Area] Moderate Abnormal None Seen [facility] Comment on above: Order Comment: Speci men Type: URINE SPECIMEN [facility] Facility: [facility] Address: [address] [place] [address] Performed By: #### 2 4356-8 #### [facility] CLIA [id number] [address] [place] [address] [place] Bilirubin Ql (U) Negative Normal Negative [facility] Comment on above: Order Comment: Speci men Type: URINE SPECIMEN [facility] Facility: [facility] Address: [address] [place] [address] Performed By: #### 2 4356-8 #### [facility] CLIA [id number] [address] [place] [address] [place] Clarity (Unsp spec) Cloudy Abnormal Clear [facility] Comment on above: Order Comment: Speci men Type: URINE SPECIMEN [facility]: [facility] Address: [address] [place] [address] Performed By: #### 2 4356-8 #### [facility] CLIA [id number] [address] [place] [address] [facility] [place] Color (U) Yellow Normal Yellow [facility] Comment on above: Order Comment: Speci men Type: URINE SPECIMEN [facility] Facility: [facility] Address: [address] [place] [address] Performed By: #### 2 4356-8 #### [facility] CLIA [id number] [address] [place] [address] [place] Epithelial cells LM.HPF (Urine sed) [#/Area] Few Normal [facility] Comment on above: Order Comment: Speci men Type: URINE SPECIMEN Ordering Facility: [facility] Address: [address] [place] [address] Result Comment: Few Performed By: #### 2 4356-8 #### [facility] CLIA [id number] [address] [place] [address] [place] Glucose Test strip (U) [Mass/Vol] 2+ Abnormal Negative [facility] Comment on above: Order Comment: Speci men Type: URINE SPECIMEN [facility] Facility: [facility] Address: [address] [place] [address] Performed By: #### 2 4356-8 #### [facility] CLIA [id number] [address] [place] [address] [place] Hemoglobin Ql (U) 3+ Abnormal Negative [facility] Comment on above: Order Comment: Speci men Type: URINE SPECIMEN [facility] Facility: [facility] Address: [address] [place] [address] Performed By: #### 2 4356-8 #### [facility] CLIA [id number] [address] [place] [address] [place] Ketones Ql (U) Negative Normal Negative [facility] Comment on above: Order Comment: Speci men Type: URINE SPECIMEN Order[facility] Facility: [facility] Address: [address] [place] [address] Performed By: #### 2 4356-8 #### [facility] CLIA [id number] [address] [place] [address] [place] Leukocyte esterase Test strip Ql (U) 1+ Abnormal Negative [facility] Comment on above: Order Comment: Speci men Type: URINE SPECIMEN Order[facility] Facility: [facility] Address: [address] [place] [address] Performed By: #### 2 4356-8 #### [facility] CLIA [id number] [address] [place] [address] [place] Nitrite Ql (U) Negative Normal Negative [facility] Comment on above: Order Comment: Speci men Type: URINE SPECIMEN Ordering Facility: [facility] Address: [address] [place] [address] Performed By: #### 2 4356-8 #### [facility] CLIA [id number] [address] [place] [address] [facility] [place] pH (U) 5.0 [pH] Normal 5.0-8.0 [facility] Comment on above: Order Comment: Speci men Type: URINE SPECIMEN Ordering Facility: [facility] Address: [address] [place] [address] Performed By: #### 2 4356-8 #### [facility] CLIA [id number] [address] [place] [id number] [place] Protein (U) [Mass/Vol] 1+ Abnormal Negative [facility] Comment on above: Order Comment: Speci men Type: URINE SPECIMEN Ordering Facility: [facility] Address: [address] [place] [address] Performed By: #### 2 4356-8 #### [facility] CLIA [id number] [address] [place] [address] [place] RBC LM.HPF (Urine sed) [#/Area] /[HPF] Abnormal 0-3 /HPF [facility] Comment on above: Order Comment: Speci men Type: URINE SPECIMEN [facility] Facility: [facility] Address: [address] [place] [address] Performed By: #### 2 4356-8 #### [facility] CLIA [id number] [address] [place] [address] [place] Specific gravity (U) [Rel density] 1.015 Normal 1.005-1.03 0 [facility] Comment on above: Order Comment: Speci men Type: URINE SPECIMEN Ordering Facility: [facility] Address: [address] [place] [address] Performed By: #### 2 4356-8 #### [facility] CLIA [id number] [address] [place] [address] [facility] [place] Urobilinogen Ql (U) 0.2 EU/dL Normal 0.2-1.0 EU/dL [facility] Comment on above: Order Comment: Speci men Type: URINE SPECIMEN [facility]ing Facility: [facility] Address: [address] [place] [address] Performed By: #### 2 4356-8 #### [facility] CLIA [id number] [address] [place] [id number] [place] WBC LM.HPF (Urine sed) [#/Area] 0-5 /HPF Normal 0-5 /HPF [facility] Comment on above: Order Comment: Speci men Type: URINE SPECIMEN Ordering Facility: [facility] Address: [address] [place] [address] Performed By: #### 2 4356-8 #### [facility] CLIA [id number] [address] [place], [place] [id number] [place] VITAMIN B1 (THIAMINE), WHOLE BLOODon 04-18-2025 Thiamine (Bld) [Moles/Vol] 176.1 nmol/L Normal 84.3-213.3 [facility] Comment on above: Order Comment: Speci men Type: BLOOD SPECIMEN Ordering Facility: [facility] Address: [address] [place] [address] Result Comment: This assay measures the concentration of thiamine diphosphate (TDP), the primary active form of vitamin B1. Approximately 90 percent of vitamin B1 present in whole blood is TDP. Thiamine and thiamine monophosphate, which comprise the remaining 10 percent, are not measured. This test was developed, and its performance characteristics determined by the [facility] Department of Pathology and Laboratory Medicine. It has not been cleared or approved by the FDA. The [facility] Department of Pathology and Laboratory Medicine is regulated under CLIA as qualified to perform high-complexity testing. This test is used for clinical purposes. It should not be regarded as investigational or for research. Performed By: #### B 1WB #### [facility] CLIA [id number] [address] [place] [address] [place] Vit B12 SerPl-mCncon 025 Cobalamin (Vitamin B12) [Mass/Vol] 981 pg/mL Normal 232-1245 [facility] Comment on above: Order Comment: Speci men Type: BLOOD SPECIMEN Ordering Facility: [facility] Address: [facility] [place] [address] Performed By: #### 2 4321-2, 08283-8 #### [facility] CLIA [id number] [address] [place] [address] [place] XR CHEST 1V FRONTALon [...] Comparison: 10/24/2023 RESULT: Lines, tubes, and devices: cardiac monitor technician leads. Suspected cardiac loop recorder projected over the heart. Lungs and pleura: Question diminished aeration medial right lung base. Lungs are otherwise clear. Cardiomediastinal silhouette: Cardiomegaly. Other: No significant additional findings. IMPRESSION: 1. Question atelectasis versus developing pneumonia medial right lung base. 2. Cardiomegaly. Per Diem Physical Therapist: PSCB Transcribe Date/Time: Apr 18 2025 2:00P Dictated by : CHER BERNAL MD This examination was interpreted and the report reviewed and electronically signed by: CHER BERNAL MD on Apr 18 2025 2:02PM EST [id number] Normal [facility] XR PELVIS 1V APon 04-18-2025 XR PELVIS [...] fracture. IMPRESSION (combined): No acute osseous abnormality. Per Diem Physical Therapist: DEENA Transcribe Date/Time: Apr 18 2025 2:01P Dictated by : LUIS STEWART MD This examination was interpreted and the report reviewed and electronically signed by: LUIS STEWART MD on Apr 18 2025 2:20PM EST [id number] Normal [facility] XR SACRUM/COCCYX 3V AP/LATon 04-18-2025 XR SACRUM/COCCYX [...] fracture. IMPRESSION (combined): No acute osseous abnormality. Per Diem Physical Therapist: DEENA Transcribe Date/Time: Apr 18 2025 2:01P Dictated by : LUIS STEWART MD This examination was interpreted and the report reviewed and electronically signed by: LUIS STEWART MD on Apr 18 2025 2:20PM EST [id number] Normal [facility] Office Visiton 02-10-2025 Follow-up visit [id number] José Antonio Corral 1950 F Date Provider Department Center 02/10/2025 [id number] ESCUDERO [facility] CS None Family History Problem Relation Age of Onset Hypertension Mother Kidney failure Mother Heart disease Mother No Known Problems Father Heart disease Brother Family Status - Relation Status Age at Mother Father Brother Level of Service:17589 [place] OFFICE/OUTPATIENT ESTABLISHED [facility] 40 MIN Reason for Visit and Comments: Memory Loss [66] Normal [facility] Progress Noteon 02-10-2025 Progress Note - [...] 6 months for routine visit/memory testing Normal [facility] Progress Note Review of Systems Constitutional: [...] dysphoric mood. The patient is nervous/anxious. Normal [facility] Progress Note [facility] [address] [facility] [address] Dept: [phone] Dept Loc: [phone] Visit type: [facility] Follow Up Visit Reason for Visit: Memory [...] 74 y.o. female who presents to the [facility] for a follow-up visit. The patient is known to me. Established pt, initially seen in 03/2023, diagnosed with early moderate Alzheimer's disease in 07/2023. Last seen in 08/2024- [place] 14 (MIS 2), CDT 5, moderate stage, [...] Comments: Al (more content not included)... 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 Activities: exercise video 30 min/day, prep food for meals, journaling, cleaning, friends/family visting, talks on phone daily with friends >>01/29/24 cleaning, gets together with friends, goes to [employer] to shop >>08/12/24 Adult Day Program 2 days, will have friends come to visit >>02/10/25 Adult Day Program 2-3 days per week, cleans, does errands with daughter Exercise: exercise 30 min/day Finances: has savings, over $2000, SS income $1900 Healthcare Power of Bi Tester: Yes: mode Cabrera Financial Power of Bi Tester: Yes: mode Cabrera Living Will: Yes Guardian: [...] >>04/24/23 Patient and had been living in [place] with another one of their children. Has [...] stays at facilities. Daughter will talk to [facility] about these things. Patient staying stable on memory test today; daughter noticing some slight decline in function. SW encouraged daughter to bring in Healthcare Power of Bi Tester and living will so that we can [...] same Ambula (more content not included)... Normal [facility] Anion gap in Serum or Plasma Ordered By: Rajat Patel on 01-01-2025 Anion gap [Moles/Vol] 15 mmol/L 5-15 [facility] BUN/creatinine ratioOrdered By: Rajat Patel on 01-01-2025 Urea nitrogen/Creatinine [Mass ratio] 20.1 mg/mg High 10-20 [facility] Bilirubin, totalOrdered By: Rajat Patel on 01-01-2025 Bilirubin [Mass/Vol] 0.37 mg/dL 0.00-1.30 [facility] Calculated very low density lipoprotein (VLDL) cholesterol measurementOrdered By: Rajat Patel on 01-01-2025 VLDL Cholesterol 35 mg/dL 5- [facility] Carbon dioxide, total [Moles /volume] in Central venous bloodOrdered By: Rajat Patel on 01-01-2025 CO2 [Moles/Vol] 18.1 mmol/L Low 21.0-32.0 [facility] Chloride assayOrdered By: Alfonso Patel on 01-01-2025 Chloride [Moles/Vol] 106 mmol/L 98-108 [facility] Comprehensive Metabolic Prof ilon 01-01-2025 Albumin [Mass/Vol] 4.5 g/dL Normal 3.4-4.[address] [facility] Comment on above: Order Comment: Order Date: 01/01/25Order Info: [id number] - CMPOrder Info: [id number] - LIPIDOrder Info: [id number] - TSHOrder Info: [id number] - FOLS Performed By: #### L 500.4100, L100.0500, L501.9520, L500.2500, L501.9985 #### [facility] [address] [place], [address] Albumin/Globulin [Mass ratio] 1.2 {ratio} Normal 0.9-2.4 [facility] Comment on above: Order Comment: Order Date: 01/01/25Order Info: [id number] - CMPOrder Info: [id number] - LIPIDOrder Info: 6-3 - TSHOrder Info: [id number] - FOLS Performed By: #### L 500.4100, L100.0500, L501.9520, L500.2500, L501.9985 #### [facility] [address] [place], [address] ALK PHOS 72 U/L Normal 35-104 [facility] Comment on above: Order Comment: Order Date: 01/01/25Order Info: [id number] - CMPOrder Info: [id number] - LIPIDOrder Info: 6-3 - TSHOrder Info: [id number] - FOLS Performed By: #### L 500.4100, L100.0500, L501.9520, L500.2500, L501.9985 #### [facility] [address] [place], [address] ALT [Catalytic activity/Vol] 20 U/L Normal <=34 [facility] Comment on above: Order Comment: Order Date: 01/01/25Order Info: [id number] - CMPOrder Info: [id number] - LIPIDOrder Info: [id number] - TSHOrder Info: 8 - FOLS Performed By: #### L 500.4100, L100.0500, L501.9520, L500.2500, L501.9985 #### [facility] [address] [place], [address] AST [Catalytic activity/Vol] 28 U/L Normal <=31 [facility] Comment on above: Order Comment: Order Date: 01/01/25Order Info: [id number] - CMPOrder Info: [id number] - LIPIDOrder Info: [id number] - TSHOrder Info: 8 - FOLS Performed By: #### L 500.4100, L100.0500, L501.9520, L500.2500, L501.9985 #### [facility] [address] [place], [address] Bilirubin [Mass/Vol] 0.37 mg/dL Normal 0.00-1.30 [facility] Comment on above: Order Comment: Order Date: 01/01/25Order Info: [id number] - CMPOrder Info: - LIPIDOrder Info: [id number] - TSHOrder Info: [id number] - FOLS Performed By: #### L 500.4100, L100.0500, L501.9520, L500.2500, L501.9985 #### [facility] [address] [place], [address] BUN/CRE 20.1 RATIO High 10-20 [facility] Comment on above: Order Comment: Order Date: 01/01/25Order Info: [id number] - CMPOrder Info: [id number] - LIPIDOrder Info: [id number] - TSHOrder Info: 8 - FOLS Performed By: #### L 500.4100, L100.0500, L501.9520, L500.2500, L501.9985 #### [facility] [address] [place], [address] Calcium [Mass/Vol] 10.1 mg/dL Normal 7.6-11.[address] [facility] Comment on above: Order Comment: Order Date: 01/01/25Order Info: [id number] - CMPOrder Info: [id number] - LIPIDOrder Info: [id number] - TSHOrder Info: [id number] - FOLS Performed By: #### L 500.4100, L100.0500, L501.9520, L500.2500, L501.9985 #### [facility] [address] [place], [address] Chloride [Moles/Vol] 106 mmol/L Normal 98-108 [facility] Comment on above: Order Comment: Order Date: 01/01/25Order Info: [id number] - CMPOrder Info: [id number] - LIPIDOrder Info: [id number] - TSHOrder Info: [id number] - FOLS Performed By: #### L 500.4100, L100.0500, L501.9520, L500.2500, L501.9985 #### [facility] [address] [place], [address] CO2 [Moles/Vol] 18.1 mmol/L Low 21.0-32.0 [facility] Comment on above: Order Comment: Order Date: 01/01/25Order Info: [id number] - CMPOrder Info: [id number] - LIPIDOrder Info: 3 - TSHOrder Info: [id number] - FOLS Performed By: #### L 500.4100, L100.0500, L501.9520, L500.2500, L501.9985 #### [facility] [address] [place], [address] Creatinine [Mass/Vol] 1.10 mg/dL Normal 0.70-1.20 [facility] Comment on above: Order Comment: Order Date: 01/01/25Order Info: 86-1 - CMPOrder Info: [id number] - LIPIDOrder Info: 3 - TSHOrder Info: [id number] - FOLS Performed By: #### L 500.4100, L100.0500, L501.9520, L500.2500, L501.9985 #### [facility] [address] [place], [address] GAP 15 Normal 5-15 [facility] Comment on above: Order Comment: Order Date: 01/01/25Order Info: [id number] - CMPOrder Info: [id number] - LIPIDOrder Info: [id number] - TSHOrder Info: [id number] - FOLS Performed By: #### L 500.4100, L100.0500, L501.9520, L500.2500, L501.9985 #### [facility] [address] [place], [place], [address] GFR/1.73 sq M.predicted among non-blacks MDRD (S/P/Bld) [Vol rate/Area] 52 mL/min/{1.73_m2} Low >60 [facility] Comment on above: Order Comment: Order Date: 01/01/25Order Info: [id number] - CMPOrder Info: [id number] - LIPIDOrder Info: [id number] - TSHOrder Info: [id number] - FOLS Result Comment: mL/m in/1.73m2 CKD-EPI Creatinine Equation (2020) Performed By: #### L 500.4100, L100.0500, L501.9520, L500.2500, L501.9985 #### [facility] [address] [place], [place], [id number] [phone] Globulin (S) [Mass/Vol] 3.7 g/dL Normal 2.2-4.2 [facility] Comment on above: Order Comment: Order Date: 01/01/25Order Info: [id number] - CMPOrder Info: [id number] - LIPIDOrder Info: [id number] - TSHOrder Info: [id number] - FOLS Performed By: #### L 500.4100, L100.0500, L501.9520, L500.2500, L501.9985 #### [facility] [address] [place], [address] Glucose [Mass/Vol] 107 mg/dL High 70-[address] [facility] Comment on above: Order Comment: Order Date: 01/01/25Order Info: [id number] - CMPOrder Info: [id number] - LIPIDOrder Info: [id number] - TSHOrder Info: [id number] - FOLS Performed By: #### L 500.4100, L100.0500, L501.9520, L500.2500, L501.9985 #### [facility] [address] [place], [address] Potassium [Moles/Vol] 5.0 mmol/L Normal 3.3-5.1 [facility] Comment on above: Order Comment: Order Date: 01/01/25Order Info: 07-1 - CMPOrder Info: [id number] - LIPIDOrder Info: 6-3 - TSHOrder Info: [id number] - FOLS Performed By: #### L 500.4100, L100.0500, L501.9520, L500.2500, L501.9985 #### [facility] [address] [place], [address] Sodium [Moles/Vol] 139 mmol/L Normal 133-[address] [facility] Comment on above: Order Comment: Order Date: 01/01/25Order Info: [id number] - CMPOrder Info: [id number] - LIPIDOrder Info: [id number] - TSHOrder Info: [id number] - FOLS Performed By: #### L 500.4100, L100.0500, L501.9520, L500.2500, L501.9985 #### [facility] [address] [place], [address] T PROT 8.2 g/dL Normal 5.9-8.4 [facility] Comment on above: Order Comment: Order Date: 01/01/25Order Info: [id number] - CMPOrder Info: [id number] - LIPIDOrder Info: [id number] - TSHOrder Info: [id number] - FOLS Performed By: #### L 500.4100, L100.0500, L501.9520, L500.2500, L501.9985 #### [facility] [address] [place], [address] Urea nitrogen [Mass/Vol] 22 mg/dL High 4-19 [facility] Comment on above: Order Comment: Order Date: 01/01/25Order Info: [id number] - CMPOrder Info: [id number] - LIPIDOrder Info: [id number] - TSHOrder Info: [id number] - FOLS Performed By: #### L 500.4100, L100.0500, L501.9520, L500.2500, L501.9985 #### [facility] [address] [place], [address] Folate [Moles/Vol]Ordered By : Rajat Patel on 01-01-2025 Serum Folate 11.20 ng/mL 4.60-34.80 [facility] Folates,Serum (Folic Acid)on 01-01-2025 FOLATES,SERUM 11.20 ng/mL Normal 4.60-34.80 [facility] Comment on above: Order Comment: N Performed By: #### L 500.4100, L100.0500, L501.9520, L500.2500, L501.9985 #### [facility] [address] [place], [address] GFR/1.73 sq M.predicted ynes g non-blacks MDRD (S/P/Bld) [Vol rate/Area]Ordered By: Rajat Patel on 01-01-2025 Estimated GFR (MDRD) Non-Af Amer 52 Low >60 [facility] Comment on above: mL/min/1.73m2 CKD-EP I Creatinine Equation (2020) LDL calc ser/plasOrdered By: Rajat Patel on 01-01-2025 LDL Cholesterol, Calculated 91 mg/dL [facility] Comment on above: Evotzzulgz=238-835 m g/dL & Higher Xaxe=161 mg/dL or greater Laboratory - Chemistry and C hemistry - challengeOrdered By: Rajat Patel on 01-01-2025 AST [Catalytic activity/Vol] 28 U/L <32 [facility] Lipid Profileon 01-01-2025 CHOL:HDL 3.13 Normal [facility] Comment on above: Order Comment: Order Date: 01/01/25Order Info: [id number] - CMPOrder Info: [id number] - LIPIDOrder Info: [id number] - TSHOrder Info: 8 - FOLS Performed By: #### L 500.4100, L100.0500, L501.9520, L500.2500, L501.9985 #### [facility] [address] [place], [place], [address] Cholesterol [Mass/Vol] 185 mg/dL Normal <=200 [facility] Comment on above: Order Comment: Order Date: 01/01/25Order Info: 07- - CMPOrder Info: [id number] - LIPIDOrder Info: 63 - TSHOrder Info: 8 - FOLS Result Comment: Chol esterol level, Desirable <200 mg/dL Borderline high cholesterol 200-239 mg/dL High cholesterol >=240 mg/dL Recommendations of the NCEP Adult Treatment Panel for the following risk-cutoff thresholds for the [place] population. Performed By: #### L 500.4100, L100.0500, L501.9520, L500.2500, L501.9985 #### [facility] [address] [place], [place], [address] Cholesterol in HDL [Mass/Vol] 59 mg/dL Normal [facility] Comment on above: Order Comment: Order Date: 01/01/25Order Info: [id number] - CMPOrder Info: [id number] - LIPIDOrder Info: 63 - TSHOrder Info: [id number] - FOLS Result Comment: [place] onal Cholesterol Education Program (NCEP) guidelines: <40 mg/dL: Low HDL-cholesterol (major risk factor for CHD) >= 60 mg/dL: High HDL-cholesterol (negative risk factor for CHD) HDL-cholesterol is affected by a number of factors, e.g. smoking, exercise, hormones, sex and age. Performed By: #### L 500.4100, L100.0500, L501.9520, L500.2500, L501.9985 #### [facility] [address] [place], [address] Cholesterol in LDL [Mass/Vol] 91 mg/dL Normal [facility] Comment on above: Order Comment: Order Date: 01/01/25Order Info: [id number] - CMPOrder Info: [id number] - LIPIDOrder Info: 3 - TSHOrder Info: 8 - FOLS Result Comment: Bord eqvpyg=308-801 mg/dL Higher Rsom=278 mg/dL or greater Performed By: #### L 500.4100, L100.0500, L501.9520, L500.2500, L501.9985 #### [facility] [address] [place], [address] Cholesterol in VLDL [Mass/Vol] 35 mg/dL Normal 5-40 [facility] Comment on above: Order Comment: Order Date: 01/01/25Order Info: [id number] - CMPOrder Info: [id number] - LIPIDOrder Info: 3 - TSHOrder Info: 8 - FOLS Performed By: #### L 500.4100, L100.0500, L501.9520, L500.2500, L501.9985 #### [facility] [address] [place], [address] Triglyceride [Mass/Vol] 176 mg/dL Normal [facility] Comment on above: Order Comment: Order Date: 01/01/25Order Info: [id number] - CMPOrder Info: [id number] - LIPIDOrder Info: 3 - TSHOrder Info: [id number] - FOLS Result Comment: The drugs N-Acetylcysteine and Metamizole may falsely depress this assay. Normal range: <150 mg/dL Borderline High: 150-199 mg/dL High: 200-499 mg/dL Very High: >500 mg/dL Performed By: #### L 500.4100, L100.0500, L501.9520, L500.2500, L501.9963 #### [facility] [address] [place], [address] Potassium (Unsp spec) [Mass/ Vol]Ordered By: Rajat Patel on 01-01-2025 Potassium [Moles/Vol] 5.0 mmol/L 3.3-5.1 [facility] Screening total cholesterol/ high density lipoprotein (HDL) cholesterol ratioOrdered By: Rajat Patel on 01-01-2025 Cholesterol.total/Cho lesterol in HDL [Mass ratio] 3.13 {ratio} [facility] Serum creatinine measurement (mass/volume)Ordered By: Rajat Patel on 01-01-2025 Creatinine [Mass/Vol] 1.10 mg/dL 0.70-1.20 [facility] Serum globulin measurementOr dered By: Rajat Patel on 01-01-2025 Globulin (S) [Mass/Vol] 3.7 g/dL 2.2-4.2 [facility] Serum glucose measurement (m ass/volume)Ordered By: Rajat Patel on 01-01-2025 Glucose [Mass/Vol] 107 mg/dL High 70-[address] [facility] Serum or plasma alanine hoffmann otransferase (ALT) measurementOrdered By: Rajat Patel on 01-01-2025 ALT [Catalytic activity/Vol] 20 U/L <35 [facility] Serum or plasma albumin teressa urement (mass/volume)Ordered By: Rajat Patel on 01-01-2025 Albumin [Mass/Vol] 4.5 g/dL 3.4-4.[address] [facility] Serum or plasma albumin/glob ulin mass ratioOrdered By: Rajat Patel on 01-01-2025 Albumin/Globulin [Mass ratio] 1.2 {ratio} 0.9-2.4 [facility] Serum or plasma alkaline hcong sphatase measurementOrdered By: Rajat Patel on 01-01-2025 ALP [Catalytic activity/Vol] 72 U/L 35-104 [facility] Serum or plasma calcium teressa urement (mass/volume)Ordered By: Rajat Patel on 01-01-2025 Calcium [Mass/Vol] 10.1 mg/dL 7.6-11.[address] [facility] Serum or plasma cholesterol in HDL measurement (mass/volume)Ordered By: Rajat Patel on 01-01-2025 Cholesterol in HDL [Mass/Vol] 59 mg/dL >40 [facility] Comment on above: National Cholesterol Education Program (NCEP) guidelines:<40 mg/dL: Low HDL-cholesterol (major risk factor for CHD)>= 60 mg/dL: High HDL-cholesterol (negative risk factor for CHD)HDL-cholesterol is affected by a number of factors, e.g. smoking, exercise, hormones, sex and age. Serum or plasma cholesterol measurement (mass/volume)Ordered By: Rajat Patel on 01-01-2025 Cholesterol [Mass/Vol] 185 mg/dL <201 [facility] Comment on above: Cholesterol level, D esirable <200 mg/dLBorderline high cholesterol 200-239 mg/dLHigh cholesterol >=240 mg/dLRecommendations of the NCEP Adult Treatment Panel for the following risk-cutoff thresholds for the [place] population. Serum or plasma urea nitroge n measurement (mass/volume)Ordered By: Rajat Patel on 01-01-2025 Urea nitrogen [Mass/Vol] 22 mg/dL High 4-19 [facility] Sodium levelOrdered By: Rajat Patel on 01-01-2025 Sodium [Moles/Vol] 139 mmol/L 133-[address] [facility] TSH DL <= 0.005 mIU/L QnOrde red By: Rajat Patel on 01-01-2025 Thyroid Stimulating Hormone (TSH) 2.500 uIU/mL 0.300-4.20 0 [facility] Thyroid Stim Hormone (TSH)on 01-01-2025 TSH 2.500 uIU/mL Normal 0.300-4.20 0 [facility] Comment on above: Order Comment: Order Date: 01/01/25Order Info: [id number] - CMPOrder Info: [id number] - LIPIDOrder Info: [id number] - TSHOrder Info: [id number] - FOLS Performed By: #### L 500.4100, L100.0500, L501.9520, L500.2500, L501.9985 #### [facility] [address] [place], [place], [id number] Total proteinOrdered By: Ayanna Patel on 01-01-2025 Protein [Mass/Vol] 8.2 g/dL 5.9-8.[address] [facility] Triglycerides measurementOrd ered By: Rajat Patel on 01-01-2025 Triglyceride [Mass/Vol] 176 mg/dL <199 [facility] Comment on above: The drugs N-Acetylcy steine and Metamizole may falsely depress this assay. Normal range: <150 mg/dLBorderline High: 150-199 mg/dLHigh: 200-499 mg/dLVery High: >500 mg/dL Vitamin B12on 01-01-2025 Cobalamin (Vitamin B12) [Mass/Vol] 2308 pg/mL High 180-914 [facility] Comment on above: Order Comment: Order Date: 01/01/25Order Info: [id number] - CMPOrder Info: [id number] - LIPIDOrder Info: [id number] - TSHOrder Info: [id number] - FOLS Performed By: #### L 500.4100, L100.0500, L501.9520, L500.2500, L501.9985 #### [facility] [address] [place], [place], [address] Vitamin B12 ser/plasOrdered By: Rajat Patel on 01-01-2025 Cobalamin (Vitamin B12) [Mass/Vol] 2308 pg/mL High 180-914 [facility] Vitamin D, 25-hydroxyOrdered By: Rajat Patel on 01-01-2025 Vitamin D 25-Hydroxy 30.4 ng/mL 30-100 [facility] Comment on above: Vitamin D StatusDefi ciency: <20 ng/mL (50nmol/L)Insufficiency: 20-30 ng/mL (50-75 nmol/L)Sufficiency: 30-100 ng/mL (75-250 nmol/L)Toxicity: >100 ng/mL (>250 nmol/L) Vitamin D,25 Hydroxyon 01-01 Vitamin D 25-OH 30.4 ng/mL Normal 30-100 [facility] Comment on above: Order Comment: Order Date: 01/01/25Order Info: [id number] - CMPOrder Info: [id number] - LIPIDOrder Info: [id number] - TSHOrder Info: [id number] - FOLS Result Comment: Constance min D Status Deficiency: <20 ng/mL (50nmol/L) Insufficiency: 20-30 ng/mL (50-75 nmol/L) Sufficiency: 30-100 ng/mL (75-250 nmol/L) Toxicity: >100 ng/mL (>250 nmol/L) Performed By: #### L 500.4100, L100.0500, L501.9520, L500.2500, L501.9985 #### [facility] [address] [place], [address] CNOVon 11-19-2024 CNOV Office Visit ([facility] AMALIA CORRAL ([id number]) 1950 F Date Time Provider Department 11/19/24 10:40 AM [facility] During your visit today, we recorded the following information about you: Pulse Respiration Blood pressure Weight 86/minute 18/minute 98/62 61.2 kg Height 1.626 m Chloe Strong MD 11/19/2024 10:57 AM [facility] [place] [facility] SECTION OF CARDIAC PACING and ELECTROPHYSIOLOGY OUTPATIENT VISIT DATE November 19, 2024 OUTPATIENT VISIT TYPE ESTABLISHED PRIMARY CARE PHYSICIAN: Rajat Patel (John) [address] [place] [address] HISTORY OF PRESENT ILLNESS: 73-year-old female with [...] showed preserved LV systolic function. Interval history: Galina presents for follow-up. She received leadless pacemaker [...] BP Orthostati (more content not included)... Normal [facility] ECG B/O W INTERP (MED OFFICE )on 11-19-2024 Electronic ventricul ar pacemaker at 77 bpm. [facility] No Panel Informationon 11-19 [facility]EM[facility]ER CLIN[facility] CHECKon Battery Voltage (volts) 3.07 V [facility] BLANK _ [facility] Won RA Sensing Blanking Period (ms) 550 ms [facility] Won RV Pacing Amplitude (volts) 1.13 V [facility] Won RV Pacing Pulse Width (ms) 0.24 ms [facility] Won RV Sensing Amplitude (mvolts) 2.0 mV [facility] Won RV Sensing Blanking Period (ms) 240 ms [facility] Implant Date 11/19/2023 [facility] Lower Rate (bpm) 70 {beats}/min [place] [facility] Max Sensor Rate (bmp) 120 {beats}/min [facility] Model [id number] Micra VR2 [facility] Pacemaker Dependent? YES [facility] Pacing Mode VVIR [facility] PM-Device Mfg MDT [facility] PM-Percent Pacing (V) 99.29 % [facility] PM-Rate Modulation Acceleration Reaction 30 s [facility] PM-Rate Modulation ADL Rate (bpm) 95 {beats}/min [facility] PM-Rate Modulation Deceleration Exercise [facility] PM-Rate Modulation [place] 3 [facility] Rhythm No R waves @ VVI 40 [facility] Serial Number [id number] [facility] Thresh RV Capture Amplitude (volts) 0.63 V [facility] Thresh RV Capture Duration (ms) 0.24 ms [facility] 11/19/2024 Formattin g of this note might be different from the original. PPM check, (single lead) Micra system with programming. ID [id number]. Here for routine PM evaluation. Offers no complaints. Presenting rhythm: GLEASON GEAR GENERATOR @ 73 ppm. Interrogation shows no observations based on current interrogation. Recommended replacement time is >10 yrs. Lead impedances and pacing threshold stable. Counters cleared. Next device check scheduled for patient, questions answered. Desiree Moss RN NOTE TO PROVIDERS: "CARD" Flowsheets contain detailed device programming and testing data. Paceart/Interrogation PDF can be found under CARDIAC DATA AND REPORT, "Scanned Documents" section. [facility] PACEMAKER REMOTE CHECKon Battery Voltage (volts) 3.07 V [facility] BLANK _ [facility] Won RA Sensing Blanking Period (ms) 550 ms [facility] Won RV Pacing Amplitude (volts) 1.13 V [facility] Won RV Pacing Pulse Width (ms) 0.24 ms [facility] Won RV Sensing Amplitude (mvolts) 2.0 mV [facility] Won RV Sensing Blanking Period (ms) 240 ms [facility] Implant Date 11/19/2023 [facility] Lower Rate (bpm) 70 {beats}/min [facility] Max Sensor Rate (bmp) 120 {beats}/min [facility] Model [id number] Micra VR2 [facility] Pacing Mode VVIR [facility] PM-Device Mfg MDT [facility] PM-Percent Pacing (V) 99.17 % [facility] PM-Rate Modulation Acceleration Reaction 30 s [facility] PM-Rate Modulation ADL Rate (bpm) 95 {beats}/min [facility] PM-Rate Modulation Deceleration Exercise [facility] PM-Rate Modulation [place] 3 [facility] RV Bipolar Impedance ohms 440 ohm [facility] Serial Number [id number] [facility] Thresh RV Capture Amplitude (volts) 0.63 V [facility] Thresh RV Capture Duration (ms) 0.24 ms [facility] PM remote interrogat ion. Presenting EGM shows GLEASON GEAR GENERATOR @ 75 ppm. Interrogation shows no new observations since last check. Electrode impedance and sensing measurements stable. Battery voltage stable. Recommended replacement time is >10 years. Bryanna CVT NOTE TO PROVIDERS: "CARD" Flowsheets contain detailed device programming and testing data. Paceart/Interrogation PDF can be found under CARDIAC DATA AND REPORT, "Scanned Documents" section. [facility] 09/29/2024 Formattin g of this note might be different from the original. PM remote interrogation. Presenting EGM shows GLEASON GEAR GENERATOR @ 75 ppm. Interrogation shows no new observations since last check. Electrode impedance and sensing measurements stable. Battery voltage stable. Recommended replacement time is >10 years. Bryanna CVT NOTE TO PROVIDERS: "CARD" Flowsheets contain detailed device programming and testing data. Paceart/Interrogation PDF can be found under CARDIAC DATA AND REPORT, "Scanned Documents" section. [facility] CNOVon 09-15-2024 CNOV Office Visit (WILDAWSTR ) AMALIA CORRAL ([id number]) 1950 F Date Time Provider Department 09/15/24 2:20 PM LIZA ORTIZ During your visit today, we recorded the following information about you: Pulse Blood pressure Weight 75/minute 120/70 66.2 kg Liza Ortiz MD 09/15/2024 2:45 PM Signed [facility] Cardiology ([address]) [address] [facility] [id number] OUTPATIENT VISIT DATE 09/15/2024 PRIMARY CARE PHYSICIAN: Rajat Patel (John) [address] [place] [address] HISTORY OF PRESENT ILLNESS: Ms. Corral is [...] 11/19/2023 With Micra implant; Dr. Strong at [facility] CARDIOVERSION x2 CHOLECYSTECTOMY 10/01/1982 Cholecystectomy MICRA AV LEADLESS PACEMAKER 11/19/2023 With AVN catheter ablation; Dr. Strong at [facility] PERCUTANEOUS CORONARY INTERVENTION 06/01/2023 LAD AND RCA [...] AF None Sister Ischemic Heart Disease Brother [place] 66 ALLERGIES: ALLERGIES Allergen Reactions Marco Inhibitors [...] of System (more content not included)... Normal [facility] CT CERVICAL SPINE WO CONTRAS Ton 08-31-2024 CT CERVICAL SPINE WO CONTRAST CT CERVICAL SPINE WO CONTRAST HISTORY: Neck trauma (Age >= 65y) fall COMPARISON: None TECHNIQUE: Axial CT images with coronal and sagittal reconstructions of the cervical spine NOTE: If there are questions about the content of this report, please contact [facility] radiology by calling [phone] FINDINGS: ALIGNMENT: Unremarkable BONES: Unremarkable. No aggressive [...] BY: Pedro Myers on 08/31/2024 11:57 AM [facility] Imaging Report - Main Call Center [facility] Call Center: Normal [facility] CT HEAD WO CONTRASTon 2023 CT HEAD WO CONTRAST CT HEAD WO CONTRAST HISTORY: Head trauma, moderate-severe fall, hit head COMPARISON: None TECHNIQUE: Noncontrast multiplanar CT images of the head NOTE: If there are questions about the content of this report, please contact [facility] radiology by calling [phone] FINDINGS: BRAIN PARENCHYMA: No intraparenchymal hemorrhage or [...] BY: Pedro Myers on 08/31/2024 11:54 AM [facility] - [facility] - [facility] Call Center: Normal [facility] ED PROV NOTEon 08-31-2024 ED PROV NOTE Carry All Driver Authentication Interface Message Text [facility] EMERGENCY DEPARTMENT ED Encounter Arrival Date: 08/31/24 1026 Amalia Corral : 1950 No address on file. CSN: [id number] DANIELE: [id number] EMERGENCY DEPARTMENT - GENERAL NOTE ARRIVAL COMPLAINT [...] hip, has been able to ambulate since. HPI Amalia Corral is a 74 year old [...] Resource Strain: Low Risk (05/29/2023) Received from [facility] Overall Financial Resource Strain (CARDIA) Difficulty of Paying Living Expenses: Not hard at all Food Insecurity: No Food Insecurity (05/29/2023) Received from [facility] Hunger Vital Sign Worried About Running Out of Food in the Last Year: Never true Ran Out of Food in the Last Year: Never true Transportation Needs: No Transportation Needs (05/29/2023) Received from [facility] PRAPARE - Transportation Lack of Transportation (Medical): No Lack of Transportation (Non-Medical): No Housing Stability: Unknown (05/29/2023) Received from [facility] Housing Stability Vital Sign Unable to [...] normal, Orophar (more content not included)... Normal [facility] XR CHEST PA AND LATERALon XR CHEST PA AND LATERAL XR CHEST PA AND LATERAL HISTORY: s/p mech fall onto L side s/p mechanical fall to left side COMPARISON: None NOTE: If there are questions about the content of this report, please contact [facility] radiology by calling [phone] FINDINGS: LINES/DEVICES: None LUNGS/PLEURA: Unremarkable HEART: Mildly enlarged. Radiodense device projects over the left heart MEDIASTINUM/CLIFTON: Tortuous thoracic aorta BONES: Unremarkable OTHER: None IMPRESSION: Mild enlargement of cardiopericardial silhouette. Cardiomegaly versus pericardial effusion Radiodense device projecting over the left heart SIGNED BY: Vanessa Jose on 08/31/2024 11:44 AM [facility] Imaging Report - Main Call Center - [facility] Call Center: Normal [facility] XR HIP LEFT AP AND LAT W OR WO PELVISon 08-31-2024 XR HIP LEFT AP AND LAT W OR WO PELVIS XR HIP LEFT AP AND LAT W OR WO PELVIS HISTORY: L hip pain s/p fall left hip pain s/p fall COMPARISON: None NOTE: If there are questions about the content of this report, please contact [facility] radiology by calling [phone] FINDINGS: BONES: Unremarkable. No acute displaced fracture [...] BY: Sal Hughes on 08/31/2024 11:43 AM [facility] Imaging Report - Main Call Center - [facility] Call Center: Normal [facility] Inital Evaluation (1) - PTon 08-22-2024 Inital Evaluation (1) - PT [facility] Physical Therapy [facility] [address] [place] [address] / REHABILITATION SERVICES INITIAL EVALUATION MR#: [id number] Acct: [id number] Name: AMALIA CORRAL Rep #: [id number] : 1950 73 From: Rajat Khan DPT, NEETU, CSCS Referring Dr.: TAYLOR Wilkins Status: REG RC R Insurance: MEDICARE PART A B [facility] Patient's Visit Information Visit Information Visit Information: AMALIA CORRAL is a 73 year old F referred to Physical Therapy by TAYLOR Wilkins with a diagnosis of OP. Date of Evaluation: 08/22/24 Physical Therapist: Rajat Khan DPT, NEETU, CSCS Visit Plan Frequency: 2x /Week Duration: [...] bars. Spends day watching TV, goes to [employer] 2x/week for social. Not consistently exercising. Feels [...] Functional Score: 25 Goals Goal 1:: FGA 25/ to redue fall risk. Goal Time Frame: [...] to be FAXED BACK to us at [phone] for Medicare purposes. For Medicare only, by signing this I certify the plan of care. Please let me know if there are questions or concerns regarding this plan of care. Physician Signature: Date: (more content not included)... Normal [facility] Lipid Profileon 08-13-2024 Cholesterol [Mass/Vol] 157 mg/dL Normal 200 [facility] Comment on above: Result Comment: <200 mg/dL Desirable 200-240 mg/dL Borderline >240 mg/dL High Risk Performed By: #### L 500.1760, L500.7067 #### [facility] Laboratory [facility] [place], [address] Cholesterol in HDL [Mass/Vol] 60 mg/dL Normal [facility] Comment on above: Result Comment: The drugs N-Acetylcysteine and Metamizole may falsely depress this assay. Reference Range HDL <40 mg/dL Low HDL Cholesterol HDL >or= 60 mg/dL High HDL Cholesterol Performed By: #### L 500.3400, L500.4100 #### [facility] [address] [place], [address] Cholesterol in LDL [Mass/Vol] 57 mg/dL Normal 0-130 [facility] Comment on above: Performed By: #### L 500.3400, L500.4100 #### [facility] [address] [place], [address] Cholesterol in VLDL [Mass/Vol] 40 mg/dL Normal 5-40 [facility] Comment on above: Performed By: #### L 500.3400, L500.4100 #### [facility] [address] [place], [address] Triglyceride [Mass/Vol] 201 mg/dL High [facility] Comment on above: Result Comment: The drugs N-Acetylcysteine and Metamizole may falsely depress this assay. Serum Triglycerides Reference Interval Normal <150 mg/dL Borderline high 150 - 199 mg/dL High 200 - 499 mg/dL Very High > or = 500 mg/dL Performed By: #### L 500.3400, L500.4100 #### [facility] [address] [place], [address] Liver Profileon 08-13-2024 Albumin [Mass/Vol] 3.7 g/dL Normal 3.2-5.[address] [facility] Comment on above: Performed By: #### L 500.3400, L500.4100 #### [facility] [address] [place], [address] ALK P 73 U/L Normal 45-117 [facility] Comment on above: Performed By: #### L 500.3400, L500.4100 #### [facility] [address] [place], [address] ALT [Catalytic activity/Vol] 20 U/L Normal 13-56 [facility] Comment on above: Performed By: #### L 500.3400, L500.4100 #### [facility] [address] [place], [address] AST [Catalytic activity/Vol] 17 U/L Normal 15-37 [facility] Comment on above: Performed By: #### L 500.3400, L500.4100 #### [facility] [address] [place], [address] Bilirubin [Mass/Vol] 0.30 mg/dL Normal 0.20-1.00 [facility] Comment on above: Result Comment: For patients on eltrombopag therapy, use of Dimension Pierre Part TBIL is not recommended. Performed By: #### L 500.3400, L500.4100 #### [facility] [address] [place], [address] Bilirubin.direct [Mass/Vol] 0.09 mg/dL Normal 0.00-0.30 [facility] Comment on above: Performed By: #### L 500.3400, L500.4100 #### [facility] [address] [place], [address] Globulin (S) [Mass/Vol] 4.2 g/dL Normal 2.2-4.2 [facility] Comment on above: Performed By: #### L 500.3400, L500.4100 #### [facility] [address] [place], [address] T PROT 7.9 g/dL Normal 6.4-8.2 [facility] Comment on above: Performed By: #### L 500.3400, L500.4100 #### [facility] [address] [place], [address] Vitamin D,25 Hydroxyon 08-13 Vitamin D 25-OH 24.2 ng/mL Normal [facility] Comment on above: Order Comment: Order Date: 08/13/24 Order Info: [id number] - [id number] Result Comment: Constance min D 25(OH) Status Range Deficiency <20 ng/mL (50nmol/L) Insufficiency 20 - 30 ng/mL (50 - 75 nmol/L) Sufficiency 30 - 100 ng/mL (75 - 250 nmol/L) Toxicity >100 ng/mL (>250 nmol/L) Performed By: #### L 506.1000 #### [facility] [address] [place], [address] Office Visiton 08-12-2024 Follow-up visit [id number] José Antonio Corral 1950 F Date Provider Department Center 08/12/[address] [facility] CS None Family History Problem Relation Age of Onset Hypertension Mother Kidney failure Mother Heart disease Mother No Known Problems Father Heart disease Brother Family Status - Relation Status Age at Mother Father Brother Level of Service:65025 [place] OFFICE/OUTPATIENT ESTABLISHED HIGH [facility] 40 MIN Reason for Visit and Comments: Memory Loss [66] Normal [facility] Progress Noteon 08-12-2024 Progress Note Review [...] sleep disturbance. The patient is nervous/anxious. Normal [facility] Progress Note [facility] [address] [address] Dept: [phone] Dept Loc: [phone] Visit type: [facility] Follow Up Visit Reason for Visit: Memory Loss Visit Date: 08/12/2024 Assessment and Plan 1. 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 female who presents to the [facility] for a follow-up visit. The patient is known to me. Established pt, initially seen in 03/2023, diagnosed with early moderate Alzheimer's disease in 07/2023. Last testing done in 12/2023- [place] 13 (MIS 2), CDT 5. Last seen in 03/2024- continued donepezil, started sertraline for mood/anger/crying episodes. History obtained from caregiver(s): Pt is here with her dtr Rick. Memory- Slow progressive decline in short term memory over the past few months since last visit in 03/2024. Function- Going to [facility] twice per week. Pt needs direct in the shower and someone there for safety. Personal care- gets agitated when dtr asks her to take a shower sometimes. Pt is wearing depends during the day and at night now. Increased urinary incontinence while she's sleeping or taking a nap. Safety issues- Had a fall on Day. No injuries. No other falls. No kitchen [...] bad dreams, paranoid. Advanced directives: Power of Bi Tester- completed but NOT scanned into Epic Living [...] DAILY 135 tablet 1 [employer] Short Pen [place] 31G X 8 MM misc No current facility-administered medications for this visit. Past Medical History: Diagnosis Date A (more content not included)... 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 Has [...] to daughter about all the services that [facility] can provide, aides, Depends, medical equipment, respite stays at facilities. Daughter will talk to [facility] Wall Cleaner about these things. Patient staying stable on memory test today; daughter noticing some slight decline in function. SW encouraged daughter to bring in Healthcare Power of Bi Tester and living will so that we can [...] a li (more content not included)... Normal [facility] Dexa Bone Density Studyon Dexa Bone Density Study [facility] Imaging Services [address] [place] [address] Dexa Bone Density Study MR#: [id number] Acct: [id number] Name: AMALIA CORRAL AISSATOU Rep #: [id number] : 1950 F 73 From: Andrey cross MD PCP: Dr. Rajat Patel MD Status: [facility] Study: Dexa Bone Density Study Date of Exam: 07/30/24 Exam# [id number] Ordering Dr: Sary Robledo NP KITCHEN SUPERVISOR-C [id number] STUDY: DUAL ENERGY X-RAY ABSORPTIOMETRY / DXA [...] CC: TAYLOR Robledo; Dr. Rajat Patel MD Per Diem Physical Therapist: Signed Normal [facility] 07-03-2024 CNPN Telephone (CAWSTR) AMALIA CORRAL ([id number]) 1950 F Date Time Provider Department 07/03/24 LIZA ORTIZ [facility] During your visit today, we recorded the following information about you: Ciera Bennett MA 07/03/2024 4:55 PM Addendum Pts daughter calling to inform provider that pt had ECHO dont 06/23 at [facility] and they are telling her that it is worse and that she needs a GISELE. She saw [facility] inadvertently. Pt has dementia and the appt was on the books without the daughters knowledge apparently. ECHO, EKG, and consult obtained from [facility] and scanned into [employer]. Dr. Ortiz will review on Sunday while here at [facility]. ANMOL Buchanan Laurie, MA 07/07/2024 4:06 PM [...] troponin [R79.89] 05/29/2023 Coronary artery disease involving port lions morgan*05/29/2023 At risk for delirium [Z91.89] 05/29/2023 [...] Encounter Status:Closed by CIERA BENNETT on 07/08/24 [place] [address]on 06-25-2024 34 PCP has tried niacin to help but that's not helping. [facility] heart doctor started 2 new [...] on Sunday if no changes are seen. [facility] 36 Please advise dtr of the following: [...] visit? Any rash associated with the itching? [facility] 36 S: Dtr Rick calling CAC for pt [...] > 4 weeks) Protocols used: Itching - [id number] [facility] PACEMAKER REMOTE CHECKon Battery Voltage (volts) 3.08 V [facility] BLANK _ [facility] Won RA Sensing Blanking Period (ms) 550 ms [facility] Won RV Pacing Amplitude (volts) 1.13 V [facility] Won RV Pacing Pulse Width (ms) 0.24 ms [facility] Won RV Sensing Amplitude (mvolts) 2.0 mV [facility] Won RV Sensing Blanking Period (ms) 240 ms [facility] Implant Date 11/19/2023 [facility] Lower Rate (bpm) 70 {beats}/min [facility] Max Sensor Rate (bmp) 120 {beats}/min [facility] Model [id number] Micra VR2 [facility] Pacing Mode VVIR [facility] PM-Device Mfg MDT [facility] PM-Percent Pacing (V) 98.74 % [facility] PM-Rate Modulation Acceleration Reaction 30 s [facility] PM-Rate Modulation ADL Rate (bpm) 95 {beats}/min [facility] PM-Rate Modulation Deceleration Exercise [facility] PM-Rate Modulation [place] 3 [facility] RV Bipolar Impedance ohms 470 ohm [facility] Serial Number [id number] [facility] Thresh RV Capture Amplitude (volts) 0.5 V [facility] Thresh RV Capture Duration (ms) 0.24 ms [facility] PM remote interrogat ion. Presenting EGM shows GLEASON GEAR GENERATOR @ 92 ppm. Interrogation shows no ventricular [...] original. PM remote interrogation. Presenting EGM shows GLEASON GEAR GENERATOR @ 92 ppm. Interrogation shows no ventricular high rate episodes since last check. Electrode impedance and sensing measurements stable. Battery voltage stable. Recommended replacement time is > 10 years. Josselynng CVT NOTE TO PROVIDERS: "CARD" Flowsheets contain detailed device programming and testing data. Paceart/Interrogation PDF can be found under CARDIAC DATA AND REPORT, "Scanned Documents" section. [facility] Office Visiton 04-29-2024 Follow-up visit [id number] José Antonio Corral 1950 F Date Provider Department Center 04/29/2024 [id number] PATEL [facility] CS None Family History Problem Relation Age of Onset Hypertension Mother Kidney failure Mother Heart disease Mother No Known Problems Father Heart disease Brother Family Status - Relation Status Age at Mother Father Brother Level of Service:99323 [place] OFFICE/OUTPATIENT ESTABLISHED MOD MDM 30 MIN Reason for Visit and Comments: Memory Loss [66] Normal [facility] PATINSon 04-29-2024 PATINS Mrs. Corral was [...] physical, mental, and social activity - [facility] [employer] [facility], Trevor Arreola. Recommend routines, schedules, and organization. Recommend getting adequate sleep and eating balanced diet. Continue regular visits with primary care provider to maintain chronic health conditions. 5 M?s - supervision/assistance with medications, medical care, meals, money, mobility (falls). Follow-up visit in 3 months for medication check. Normal [facility] Progress Noteon 04-29-2024 Progress Note Review [...] sleep disturbance. The patient is nervous/anxious. Normal [facility] Progress Note [facility] [address] [place] [address] Dept: [phone] Dept Loc: [phone] Visit type: [facility] Follow Up Visit Reason for Visit: Memory [...] tablet (10 mg) by mouth Nightly., Starting Tu04/29/2024, Normal 2. Anger - sertraline (Zoloft) 50 [...] 73 y.o. female who presents to the [facility] for a follow-up visit. The patient is known to me. Initially seen in 03/2023, diagnosed with early moderate Alzheimer's disease in 07/2023. Last seen in 12/2023- [place] 13 (MIS 2), CDT 5, still moderate [...] thereafter 30 tablet 2 [employer] Short Pen [place] 31G X 8 MM [facility] [place] current facility-administered medications for this visit. Past Medical History: Diagnosis Date Alzheimer's dementia (HCC) diagnosed 07/2023 Diabetes mellitus (HCC) Disease of thyroid gland Heart disease Hyperlipemia Hypertension Pacemaker Toxic encephalopathy Urinary tract infection Social History Tobacco U (more content not included)... Normal [facility] 36on 04-28-2024 36 Left message on MightyText line to notify med was discharged. Normal [facility] 36on 04-25-2024 36 This medication was stopped due to pt having side effects. Please advise pharmacy that this was stopped. Normal [facility] CHECKon Battery Voltage (volts) 3.07 V [facility] BLANK _ [facility] Won RA Sensing Blanking Period (ms) 550 ms [facility] Won RV Pacing Amplitude (volts) 2.0 V [facility] Won RV Pacing Pulse Width (ms) 0.24 ms [facility] Won RV Sensing Amplitude (mvolts) 2.0 mV [facility] Won RV Sensing Blanking Period (ms) 240 ms [facility] Implant Date 11/19/2023 [facility] Lower Rate (bpm) 70 {beats}/min [facility] Max Sensor Rate (bmp) 120 {beats}/min [facility] Model [id number] Micra VR2 [facility] Pacing Mode VVIR [facility] PM-Device Mfg MDT [facility] PM-Percent Pacing (V) 98.34 % [facility] PM-Rate Modulation Acceleration Reaction 30 s [facility] PM-Rate Modulation ADL Rate (bpm) 95 {beats}/min [facility] PM-Rate Modulation Deceleration Exercise [facility] PM-Rate Modulation [place] 3 [facility] Rhythm Atrial fib w/ CHB. N o R waves w/ rate decreased [facility] Serial Number [id number] [facility] Thresh RV Capture Amplitude (volts) 0.5 V [facility] Thresh RV Capture Duration (ms) 0.24 ms [facility] CHECKon Battery Voltage (volts) 3.06 V [facility] BLANK _ [facility] Won RA Sensing Blanking Period (ms) 550 ms [facility] Won RV Pacing Amplitude (volts) 2.13 V [facility] Won RV Pacing Pulse Width (ms) 0.24 ms [facility] Won RV Sensing Amplitude (mvolts) 2.0 mV [facility] Won RV Sensing Blanking Period (ms) 240 ms [facility] Implant Date 11/19/2023 [facility] Lower Rate (bpm) 80 {beats}/min [facility] Max Sensor Rate (bmp) 120 {beats}/min [facility] Model [id number] Micra VR2 [facility] Pacemaker Dependent? YES [facility] Pacing Mode VVIR [facility] PM-Device Mfg MDT [facility] PM-Percent Pacing (V) 99.93 % 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; s/p AVJ ablation [facility] Serial Number [id number] [facility] Thresh RV Capture Amplitude (volts) 0.5 V [facility] Thresh RV Capture Duration (ms) 0.24 ms [facility] Thresh RV Sensing Amplitude (mvolts) paced [facility] CHECKon Battery Voltage (volts) 3.07 V [facility] BLANK _ [facility] Won RA Sensing Blanking Period (ms) 550 ms [facility] Won RV Pacing Amplitude (volts) 2.25 V [facility] Won RV Pacing Pulse Width (ms) 0.24 ms [facility] Won RV Sensing Amplitude (mvolts) 2.0 mV [facility] Won RV Sensing Blanking Period (ms) 240 ms [facility] Implant Date 11/19/2023 [facility] Lower Rate (bpm) 90 {beats}/min [facility] Max Sensor Rate (bmp) 120 {beats}/min [facility] Model [id number] Micra VR2 [facility] Pacemaker Dependent? YES [facility] Pacing Mode VVIR [facility] PM-Device Mfg MDT [facility] PM-Percent Pacing (V) 99.96 % [facility] PM-Rate Modulation Acceleration Reaction 30 s [facility] PM-Rate Modulation ADL Rate (bpm) 95 {beats}/min [facility] PM-Rate Modulation Deceleration Exercise [facility] PM-Rate Modulation [place] 3 [facility] Rhythm dep @ VVI 40 bpm [facility] Serial Number [id number] [facility] Thresh RV Capture Amplitude (volts) 0.5 V [facility] Thresh RV Capture Duration (ms) 0.24 ms [facility] Basophil percentageOrdered B y: Rajat Patel on 09-07-2023 Bilirubin [Mass/Vol] 0.30 mg/dL 0.20-1.00 [facility] Comment on above: For patients on eltr ombopag therapy, use of Dimension Pierre Part TBIL is not recommended. Chloride [Moles/Vol] 106 mmol/L 98-107 [facility] Glucose [Mass/Vol] 273 mg/dL 74-[address] [facility] Comment on above: Glucose result great er than or equal to 200 mg/dLsuggests DIABETES MELLITUS per A.D.A. criteria. Potassium [Moles/Vol] 4.8 mmol/L 3.5-5.1 [facility] Protein [Mass/Vol] 8.0 g/dL 6.4-8.[address] [facility] Sodium [Moles/Vol] 137 mmol/L 136-[address] [facility] Laboratory - Chemistry and C hemistry - challengeOrdered By: Rajat Patel on 09-07-2023 ALP [Catalytic activity/Vol] 73 U/L 45-117 [facility] ALT [Catalytic activity/Vol] 19 U/L 13-56 [facility] CO2 [Moles/Vol] 28.0 mmol/L 21.0-32.0 [facility] Globulin (S) [Mass/Vol] 4.3 g/dL 2.2-4.2 [facility] Urea nitrogen/Creatinine [Mass ratio] 16.7 mg/mg 10-20 [facility] No Panel InformationOrdered By: Rajat Patel on 09-07-2023 Digoxin Level 1.09 ng/mL 0.80-2.00 [facility] Estimated GFR (MDRD) Amer 48 mL/min >60 [facility] Comment on above: GFR Calc Estimated GFR (MDRD) Non-Af Amer 40 mL/min >60 [facility] Comment on above: Non- GFR Calc Serum or plasma albumin teressa urement (mass/volume)Ordered By: Rajat Patel on 09-07-2023 Albumin [Mass/Vol] 3.7 g/dL 3.2-5.[address] [facility] Serum or plasma albumin/glob ulin mass ratioOrdered By: Rajat Patel on 09-07-2023 Albumin/Globulin [Mass ratio] 0.9 {ratio} 0.9-2.4 [facility] Serum or plasma calcium teressa urement (mass/volume)Ordered By: Rajat Patel on 09-07-2023 Calcium [Mass/Vol] 10.1 mg/dL 8.5-10.[address] [facility] Serum or plasma creatinine m easurement (mass/volume)Ordered By: Rajat Patel on 09-07-2023 Creatinine [Mass/Vol] 1.38 mg/dL 0.55-1.02 [facility] Comment on above: The validity of the calculated GFR & GFRAA in patients over 70 years has not been determined. Clinical correlation is essential. Serum or plasma urea nitroge n measurement (mass/volume)Ordered By: Rajat Patel on 09-07-2023 Urea nitrogen [Mass/Vol] 23 mg/dL 7-18 [facility] Thin prep Papanicolaou smear with manual screeningOrdered By: Rajat Patel on 09-07-2023 Thin prep Papanicolaou smear with manual screening 18 U/L 15-37 [facility] Thin prep Papanicolaou smear with manual screening 3 5-15 [facility] Basophil percentageOrdered B y: Rajat Patel on 09-05-2023 Bilirubin [Mass/Vol] 0.40 mg/dL 0.20-1.00 [facility] Comment on above: For patients on eltr ombopag therapy, use of Dimension Pierre Part TBIL is not recommended. Chloride [Moles/Vol] 109 mmol/L 98-107 [facility] Glucose [Mass/Vol] 154 mg/dL 74-[address] [facility] Comment on above: Fasting Glucose resu lt greater than or equal to 126 mg/dL suggests DIABETES MELLITUS per A.D.A. criteria. Potassium [Moles/Vol] 4.7 mmol/L 3.5-5.1 [facility] Protein [Mass/Vol] 8.7 g/dL 6.4-8.[address] [facility] Sodium [Moles/Vol] 136 mmol/L 136-[address] [facility] WBC (Bld) [#/Vol] 8.6 10*3/uL 4.4-11.[address] [facility] Blood erythrocytes count (nu mber/volume)Ordered By: Rajat Patel on 09-05-2023 RBC (Bld) [#/Vol] 4.44 10*6/uL 4.2-5.4 [facility] Blood hemoglobin measurement (mass/volume)Ordered By: Rajat Patel on 09-05-2023 Hemoglobin (Bld) [Mass/Vol] 12.7 g/dL 12.0-15.0 [facility] Blood platelet mean volumeOr dered By: Rajat Patel on 09-05-2023 Platelet mean volume (Bld) [Entitic vol] 8.7 fL 6.2-12.0 [facility] Determination of erythrocyte mean corpuscular volume (MCV)Ordered By: Rajat Patel on 09-05-2023 MCV (RBC) [Entitic vol] 91.7 fL 81-99 [facility] Hematocrit Auto (Bld) [Volum e fraction]Ordered By: Rajat Patel on 09-05-2023 Hematocrit (Bld) [Volume fraction] 40.7 % 37-47 [facility] Laboratory - Chemistry and C hemistry - challengeOrdered By: Rajat Patel on 09-05-2023 ALP [Catalytic activity/Vol] 76 U/L 45-117 [facility] ALT [Catalytic activity/Vol] 15 U/L 13-56 [facility] CO2 [Moles/Vol] 22.0 mmol/L 21.0-32.0 [facility] Globulin (S) [Mass/Vol] 4.9 g/dL 2.2-4.2 [facility] Magnesium [Mass/Vol] 2.1 mg/dL 1.6-2.6 [facility] Urea nitrogen/Creatinine [Mass ratio] 14.4 mg/mg 10-20 [facility] Laboratory - Hematology and Cell countsOrdered By: Rajat Patel on 09-05-2023 Erythrocyte distribution width (RBC) [Entitic vol] 52.1 fL 35.1-43.9 [facility] Erythrocyte distribution width (RBC) [Ratio] 15.4 % 11.6-14.6 [facility] MCH (RBC) [Entitic mass] 28.6 pg 27.0-32.0 [facility] MCHC Auto (RBC) [Mass/Vol]Or dered By: Rajat Patel on 09-05-2023 MCHC (RBC) [Mass/Vol] 31.2 g/dL 32-36 [facility] No Panel InformationOrdered By: Rajat Patel on 09-05-2023 Digoxin Level 1.93 ng/mL 0.80-2.00 [facility] Estimated GFR (MDRD) Amer 54 mL/min >60 [facility] Comment on above: GFR Calc Estimated GFR (MDRD) Non-Af Amer 44 mL/min >60 [facility] Comment on above: Non- GFR Calc Platelets bldOrdered By: Ayanna Patel on 09-05-2023 Platelets (Bld) [#/Vol] 361 10*3/uL 150-450 [facility] Serum or plasma albumin teressa urement (mass/volume)Ordered By: Rajat Patel on 09-05-2023 Albumin [Mass/Vol] 3.8 g/dL 3.2-5.[address] [facility] Serum or plasma albumin/glob ulin mass ratioOrdered By: Rajat Patel on 09-05-2023 Albumin/Globulin [Mass ratio] 0.8 {ratio} 0.9-2.4 [facility] Serum or plasma calcium teressa urement (mass/volume)Ordered By: Rajat Patel on 09-05-2023 Calcium [Mass/Vol] 9.9 mg/dL 8.5-10.[address] [facility] Serum or plasma creatinine m easurement (mass/volume)Ordered By: Rajat Patel on 09-05-2023 Creatinine [Mass/Vol] 1.25 mg/dL 0.55-1.02 [facility] Comment on above: The validity of the calculated GFR & GFRAA in patients over 70 years has not been determined. Clinical correlation is essential. Serum or plasma urea nitroge n measurement (mass/volume)Ordered By: Rajat Patel on 09-05-2023 Urea nitrogen [Mass/Vol] 18 mg/dL 7-18 [facility] Thin prep Papanicolaou smear with manual screeningOrdered By: Rajat Patel on 09-05-2023 Thin prep Papanicolaou smear with manual screening 15 U/L 15-37 [facility] Thin prep Papanicolaou smear with manual screening 5 5-15 [facility] No Panel Informationon 08-20 Digoxin Level 1.01 ng/mL 0.80-2.00 [facility] Laboratory - Chemistry and C hemistry - challengeon 08-06-2023 Cobalamin (Vitamin B12) [Mass/Vol] 471 pg/mL 211-911 [facility] Serum or plasma folate measu rement (mass/volume)on 08-06-2023 Folate [Mass/Vol] 10.50 ng/mL 3.1-55.[address] [facility] Basophil percentageOrdered B y: Sharon Wynn on 07-11-2023 Cholesterol [Mass/Vol] 152 mg/dL <200 [facility] Comment on above: <200 mg/dL Desirable 200-240 mg/dL Borderline >240 mg/dL High Risk Triglyceride [Mass/Vol] 109 mg/dL <199 [facility] Comment on above: The drugs N-Acetylcy steine and Metamizole may falsely depress this assay.Serum Triglycerides Reference Interval Normal <150 mg/dL Borderline high 150 - 199 mg/dL High 200 - 499 mg/dL Very High > or = 500 mg/dL Serum or plasma cholesterol in HDL measurement (mass/volume)Ordered By: Sharon Wynn on 07-11-2023 Cholesterol in HDL [Mass/Vol] 49 mg/dL >40 [facility] Comment on above: The drugs N-Acetylcy steine and Metamizole may falsely depress this assay. Reference Range HDL <40 mg/dL Low HDL Cholesterol HDL >or= 60 mg/dL High HDL Cholesterol Serum or plasma cholesterol in VLDL measurement (mass/volume)Ordered By: Sharon Wynn on 07-11-2023 Cholesterol in VLDL [Mass/Vol] 22 mg/dL 5-40 [facility] Serum or plasma low density lipoprotein (LDL) cholesterol measurement (mass/volume)Ordered By: Sharon Wynn on 07-11-2023 Cholesterol in LDL [Mass/Vol] 81 mg/dL 0-130 [facility] Absolute lymphocyte countOrd ered By: Jana Merino on 06-20-2023 Lymphocytes Auto (Unsp spec) [#/Vol] 0.86 10*3/uL 0.83-4.51 [facility] Basophil percentageOrdered B y: Jana Merino on 06-20-2023 Basophils/100 WBC (Bld) 0.4 % 0-1 [facility] Chloride [Moles/Vol] 105 mmol/L 98-107 [facility] Eosinophils/100 WBC (Bld) 0.6 % 0-5 [facility] Glucose [Mass/Vol] 137 mg/dL 74-[address] [facility] Comment on above: Fasting Glucose resu lt greater than or equal to 126 mg/dL suggests DIABETES MELLITUS per A.D.A. criteria. Neutrophils (Bld) [#/Vol] 7.5 10*3/uL 2.0-7.7 [facility] Neutrophils/100 WBC (Bld) 80.2 % 47-70 [facility] Potassium [Moles/Vol] 4.3 mmol/L 3.5-5.1 [facility] Sodium [Moles/Vol] 135 mmol/L 136-[address] [facility] WBC (Bld) [#/Vol] 9.3 10*3/uL 4.4-11.[address] [facility] Blood erythrocytes count (nu mber/volume)Ordered By: Jana Merino on 06-20-2023 RBC (Bld) [#/Vol] 3.30 10*6/uL 4.2-5.4 [facility] Blood hemoglobin measurement (mass/volume)Ordered By: Jana Merino on 06-20-2023 Hemoglobin (Bld) [Mass/Vol] 10.7 g/dL 12.0-15.0 [facility] Blood lymphocytes/100 leukoc ytesOrdered By: Jana Merino on 06-20-2023 Lymphocytes/100 WBC (Bld) 9.2 % 19-41 [facility] Blood monocytes/100 leukocyt esOrdered By: Jana Merino on 06-20-2023 Monocytes/100 WBC (Bld) 9.3 % 0-10 [facility] Blood platelet mean volumeOr dered By: Jana Merino on 06-20-2023 Platelet mean volume (Bld) [Entitic vol] 8.9 fL 6.2-12.0 [facility] Determination of erythrocyte mean corpuscular volume (MCV)Ordered By: Jana Merino on 06-20-2023 MCV (RBC) [Entitic vol] 98.5 fL 81-99 [facility] Hematocrit Auto (Bld) [Volum e fraction][facility] on 06-20-2023 Hematocrit (Bld) [Volume fraction] 32.5 % 37-47 [facility] Laboratory - Chemistry and C hemistry - challengeOrdered By: [facility] on 06-20-2023 CO2 [Moles/Vol] 25.0 mmol/L 21.0-32.0 [facility] Urea nitrogen/Creatinine [Mass ratio] 15.3 mg/mg 10-20 [facility] Laboratory - Hematology and Cell countsOrdered By: [facility] on 06-20-2023 Erythrocyte distribution width (RBC) [Entitic vol] 54.8 fL 35.1-43.9 [facility] Erythrocyte distribution width (RBC) [Ratio] 15.3 % 11.6-14.6 [facility] Immature granulocytes/100 WBC (Bld) 0.300 % 0.0-0.9 [facility] Comment on above: IG% - Immature Granu locytes (promyelocytes, myelocytes and metamyelocytes) > 1% indicates that a LEFT SHIFT is Present. MCH (RBC) [Entitic mass] 32.4 pg 27.0-32.0 [facility] Nucleated RBC/100 WBC (Bld) [Ratio] 0 % 0-5 [facility] MCHC Auto (RBC) [Mass/Vol]Or dered By: Jana Merino on 06-20-2023 MCHC (RBC) [Mass/Vol] 32.9 g/dL 32-36 [facility] No Panel InformationOrdered By: Jana Merino on 06-20-2023 Estimated Creatinine Clearance Calc 32.42 ml/min [facility] Estimated GFR (MDRD) Amer 48 mL/min >60 [facility] Comment on above: GFR Calc Estimated GFR (MDRD) Non-Af Amer 40 mL/min >60 [facility] Comment on above: Non- GFR Calc Troponin I High Sensitivity 25 pg/mL 3.0-54.0 [facility] Comment on above: Please Note: New [place]ly t Units and Gender Specific Reference Ranges. For more information see Policy Stat Procedure Pierre Part High Sensitivity Troponin (TNIH) and attachments. Platelets bldOrdered By: Sandy cali Wilber on 06-20-2023 Platelets (Bld) [#/Vol] 371 10*3/uL 150-450 [facility] Serum or plasma calcium teressa urement (mass/volume)Ordered By: Jana Wilber on 06-20-2023 Calcium [Mass/Vol] 9.4 mg/dL 8.5-10.[address] [facility] Serum or plasma creatinine m easurement (mass/volume)Ordered By: Jana Wilber on 06-20-2023 Creatinine [Mass/Vol] 1.37 mg/dL 0.55-1.02 [facility] Comment on above: The validity of the calculated GFR & GFRAA in patients over 70 years has not been determined. Clinical correlation is essential. Serum or plasma urea nitroge n measurement (mass/volume)Ordered By: Jana Wilber on 06-20-2023 Urea nitrogen [Mass/Vol] 21 mg/dL 7-18 [facility] Thin prep Papanicolaou smear with manual screeningOrdered By: Jana Wilber on 06-20-2023 Thin prep Papanicolaou smear with manual screening 5 5-15 [facility] No Panel InformationOrdered By: Sanam Stubbs on 05-29-2023 Troponin I High Sensitivity 28 pg/mL 3.0-54.0 [facility] Comment on above: Please Note: New Or[place] t Units and Gender Specific Reference Ranges. For more information see Policy Stat Procedure Pierre Part High Sensitivity Troponin (TNIH) and attachments. Absolute lymphocyte countOrd ered By: ED PROVIDER on 05-28-2023 Lymphocytes Auto (Unsp spec) [#/Vol] 0.91 10*3/uL 0.83-4.51 [facility] Basophil percentageOrdered B y: ED PROVIDER on 05-28-2023 Basophils/100 WBC (Bld) 0.2 % 0-1 [facility] Chloride [Moles/Vol] 105 mmol/L 98-107 [facility] Eosinophils/100 WBC (Bld) 0.5 % 0-5 [facility] Glucose [Mass/Vol] 190 mg/dL 74-[address] [facility] Comment on above: Fasting Glucose resu lt greater than or equal to 126 mg/dL suggests DIABETES MELLITUS per A.D.A. criteria. Neutrophils (Bld) [#/Vol] 12.2 10*3/uL 2.0-7.7 [facility] Neutrophils/100 WBC (Bld) 85.4 % 47-70 [facility] Potassium [Moles/Vol] 4.1 mmol/L 3.5-5.1 [facility] Comment on above: Moderate Hemolysis, Result may be falsely increased. Sodium [Moles/Vol] 140 mmol/L 136-[address] [facility] WBC (Bld) [#/Vol] 14.3 10*3/uL 4.4-11.0 [facility] Blood erythrocytes count (nu mber/volume)Ordered By: ED PROVIDER on 05-28-2023 RBC (Bld) [#/Vol] 4.74 10*6/uL 4.2-5.4 [facility] Blood hemoglobin measurement (mass/volume)Ordered By: ED PROVIDER on 05-28-2023 Hemoglobin (Bld) [Mass/Vol] 14.6 g/dL 12.0-15.0 [facility] Blood lymphocytes/100 leukoc ytesOrdered By: ED PROVIDER on 05-28-2023 Lymphocytes/100 WBC (Bld) 6.4 % 19-41 [facility] Blood monocytes/100 leukocyt esOrdered By: ED PROVIDER on 05-28-2023 Monocytes/100 WBC (Bld) 7.1 % 0-10 [facility] Blood platelet mean volumeOr dered By: ED PROVIDER on 05-28-2023 Platelet mean volume (Bld) [Entitic vol] 9.2 fL 6.2-12.0 [facility] Determination of erythrocyte mean corpuscular volume (MCV)Ordered By: ED PROVIDER on 05-28-2023 MCV (RBC) [Entitic vol] 93.9 fL 81-99 [facility] Hematocrit Auto (Bld) [Volum e fraction]Ordered By: ED PROVIDER on 05-28-2023 Hematocrit (Bld) [Volume fraction] 44.5 % 37-47 [facility] Laboratory - Chemistry and C hemistry - challengeOrdered By: ED PROVIDER on 05-28-2023 CO2 [Moles/Vol] 26.0 mmol/L 21.0-32.0 [facility] Urea nitrogen/Creatinine [Mass ratio] 10.3 mg/mg 10-20 [facility] Laboratory - Hematology and Cell countsOrdered By: ED PROVIDER on 05-28-2023 Erythrocyte distribution width (RBC) [Entitic vol] 53.6 fL 35.1-43.9 [facility] Erythrocyte distribution width (RBC) [Ratio] 15.6 % 11.6-14.6 [facility] Immature granulocytes/100 WBC (Bld) 0.400 % 0.0-0.9 [facility] Comment on above: IG% - Immature Granu locytes (promyelocytes, myelocytes and metamyelocytes) > 1% indicates that a LEFT SHIFT is Present. MCH (RBC) [Entitic mass] 30.8 pg 27.0-32.0 [facility] Nucleated RBC/100 WBC (Bld) [Ratio] 0 % 0-5 [facility] MCHC Auto (RBC) [Mass/Vol]Or dered By: ED PROVIDER on 05-28-2023 MCHC (RBC) [Mass/Vol] 32.8 g/dL 32-36 [facility] No Panel InformationOrdered By: ED PROVIDER on 05-28-2023 Estimated GFR (MDRD) Amer 37 mL/min >60 [facility] Comment on above: GFR Calc Estimated GFR (MDRD) Non-Af Amer 30 mL/min >60 [facility] Comment on above: Non- GFR Calc Platelets bldOrdered By: ED PROVIDER on 05-28-2023 Platelets (Bld) [#/Vol] 255 10*3/uL 150-450 [facility] Serum or plasma calcium teressa urement (mass/volume)Ordered By: ED PROVIDER on 05-28-2023 Calcium [Mass/Vol] 9.8 mg/dL 8.5-10.[address] [facility] Serum or plasma creatinine m easurement (mass/volume)Ordered By: ED PROVIDER on 05-28-2023 Creatinine [Mass/Vol] 1.75 mg/dL 0.55-1.02 [facility] Comment on above: The validity of the calculated GFR & GFRAA in patients over 70 years has not been determined. Clinical correlation is essential. Serum or plasma urea nitroge n measurement (mass/volume)Ordered By: ED PROVIDER on 05-28-2023 Urea nitrogen [Mass/Vol] 18 mg/dL 7-18 [facility] Thin prep Papanicolaou smear with manual screeningOrdered By: ED PROVIDER on 05-28-2023 Thin prep Papanicolaou smear with manual screening 9 5-15 [facility] Basophil percentageOrdered B y: Sharon Wynn on 05-25-2023 Chloride [Moles/Vol] 107 mmol/L 98-107 [facility] Glucose [Mass/Vol] 284 mg/dL 74-[address] [facility] Comment on above: Glucose result great er than or equal to 200 mg/dLsuggests DIABETES MELLITUS per A.D.A. criteria. Potassium [Moles/Vol] 3.7 mmol/L 3.5-5.1 [facility] Sodium [Moles/Vol] 137 mmol/L 136-[address] [facility] Laboratory - Chemistry and C hemistry - challengeOrdered By: Sharon Wynn on 05-25-2023 CO2 [Moles/Vol] 24.0 mmol/L 21.0-32.0 [facility] Urea nitrogen/Creatinine [Mass ratio] 9.7 mg/mg 10-20 [facility] No Panel InformationOrdered By: Sharon Wynn on 05-25-2023 Estimated GFR (MDRD) Amer 39 mL/min >60 [facility] Comment on above: GFR Calc Estimated GFR (MDRD) Non-Af Amer 32 mL/min >60 [facility] Comment on above: Non- GFR Calc Serum or plasma calcium teressa urement (mass/volume)Ordered By: Sharon Wynn on 05-25-2023 Calcium [Mass/Vol] 9.1 mg/dL 8.5-10.[address] [facility] Serum or plasma creatinine m easurement (mass/volume)Ordered By: Sharon Wynn on 05-25-2023 Creatinine [Mass/Vol] 1.65 mg/dL 0.55-1.02 [facility] Comment on above: The validity of the calculated GFR & GFRAA in patients over 70 years has not been determined. Clinical correlation is essential. Serum or plasma urea nitroge n measurement (mass/volume)Ordered By: Sharon Wynn on 05-25-2023 Urea nitrogen [Mass/Vol] 16 mg/dL 7-18 [facility] Thin prep Papanicolaou smear with manual screeningOrdered By: Sharon Wynn on 05-25-2023 Thin prep Papanicolaou smear with manual screening 6 5-15 [facility] Basophil percentageOrdered B y: Sharon Wynn on 05-24-2023 Chloride [Moles/Vol] 105 mmol/L 98-107 [facility] Glucose [Mass/Vol] 162 mg/dL 74-[address] [facility] Comment on above: Fasting Glucose resu lt greater than or equal to 126 mg/dL suggests DIABETES MELLITUS per A.D.A. criteria. Potassium [Moles/Vol] 3.9 mmol/L 3.5-5.1 [facility] Sodium [Moles/Vol] 137 mmol/L 136-[address] [facility] Laboratory - Chemistry and C hemistry - challengeOrdered By: Sharon Wynn on 05-24-2023 CO2 [Moles/Vol] 25.0 mmol/L 21.0-32.0 [facility] Urea nitrogen/Creatinine [Mass ratio] 10.8 mg/mg 10-20 [facility] No Panel InformationOrdered By: Sharon Wynn on 05-24-2023 Estimated Creatinine Clearance Calc 26.25 ml/min [facility] Estimated GFR (MDRD) Amer 36 mL/min >60 [facility] Comment on above: GFR Calc Estimated GFR (MDRD) Non-Af Amer 30 mL/min >60 [facility] Comment on above: Non- GFR Calc Serum or plasma calcium teressa urement (mass/volume)Ordered By: Sharon Wynn on 05-24-2023 Calcium [Mass/Vol] 9.6 mg/dL 8.5-10.[address] [facility] Serum or plasma creatinine m easurement (mass/volume)Ordered By: Sharon Wynn on 05-24-2023 Creatinine [Mass/Vol] 1.76 mg/dL 0.55-1.02 [facility] Comment on above: The validity of the calculated GFR & GFRAA in patients over 70 years has not been determined. Clinical correlation is essential. Serum or plasma urea nitroge n measurement (mass/volume)Ordered By: Sharon Wynn on 05-24-2023 Urea nitrogen [Mass/Vol] 19 mg/dL 7-18 [facility] Thin prep Papanicolaou smear with manual screeningOrdered By: Sharonzana Wynn on 05-24-2023 Thin prep Papanicolaou smear with manual screening 7 5-15 [facility] INR in Blood by Coagulation assayOrdered By: Sharon Wynn on 05-23-2023 INR Coag (Bld) [Relative time] 1.1 {INR} [facility] Laboratory - CoagulationOrde red By: Sharon Wynn on 05-23-2023 aPTT Coag (Bld) [Time] 28.7 s 24.1-36.2 [facility] PT Coag (PPP) [Time] 13.7 s 11.7-14.9 [facility] Absolute lymphocyte countOrd ered By: Sharon Wynn on 05-08-2023 Lymphocytes Auto (Unsp spec) [#/Vol] 1.98 10*3/uL 0.83-4.51 [facility] Basophil percentageOrdered B y: Sharon Wynn on 05-08-2023 Basophils/100 WBC (Bld) 0.5 % 0-1 [facility] Eosinophils/100 WBC (Bld) 0.5 % 0-5 [facility] Neutrophils (Bld) [#/Vol] 5.6 10*3/uL 2.0-7.7 [facility] Neutrophils/100 WBC (Bld) 64.6 % 47-70 [facility] WBC (Bld) [#/Vol] 8.7 10*3/uL 4.4-11.[address] [facility] Basophil percentageOrdered B y: Rajat Patel on 05-08-2023 Bilirubin [Mass/Vol] 0.60 mg/dL 0.20-1.00 [facility] Comment on above: For patients on eltr ombopag therapy, use of Dimension Pierre Part TBIL is not recommended. Chloride [Moles/Vol] 104 mmol/L 98-107 [facility] Glucose [Mass/Vol] 122 mg/dL 74-[address] [facility] Comment on above: Fasting Glucose resu lt from 100 to 125 mg/dL suggests IMPAIRED HOMEOSTASIS per A.D.A. criteria. Potassium [Moles/Vol] 4.1 mmol/L 3.5-5.1 [facility] Protein [Mass/Vol] 7.8 g/dL 6.4-8.[address] [facility] Sodium [Moles/Vol] 137 mmol/L 136-[address] [facility] Blood erythrocytes count (nu mber/volume)Ordered By: Sharon Wynn on 05-08-2023 RBC (Bld) [#/Vol] 4.29 10*6/uL 4.2-5.4 [facility] Blood hemoglobin measurement (mass/volume)Ordered By: Sharon Wynn on 05-08-2023 Hemoglobin (Bld) [Mass/Vol] 13.0 g/dL 12.0-15.0 [facility] Blood lymphocytes/100 leukoc ytesOrdered By: Sharon Wynn on 05-08-2023 Lymphocytes/100 WBC (Bld) 22.7 % 19-41 [facility] Blood monocytes/100 leukocyt esOrdered By: Sharon Wynn on 05-08-2023 Monocytes/100 WBC (Bld) 11.4 % 0-10 [facility] Blood platelet mean volumeOr dered By: Sharon Wynn on 05-08-2023 Platelet mean volume (Bld) [Entitic vol] 9.5 fL 6.2-12.0 [facility] Determination of erythrocyte mean corpuscular volume (MCV)Ordered By: Sharon Wynn on 05-08-2023 MCV (RBC) [Entitic vol] 92.1 fL 81-99 [facility] Hematocrit Auto (Bld) [Volum e fraction]Ordered By: Sharon Wynn on 08-08-2023 Hematocrit (Bld) [Volume fraction] 39.5 % 37-47 [facility] Laboratory - Chemistry and C hemistry - challengeOrdered By: Rajat Patel on 05-08-2023 ALP [Catalytic activity/Vol] 74 U/L 45-117 [facility] ALT [Catalytic activity/Vol] 20 U/L 13-56 [facility] CO2 [Moles/Vol] 22.0 mmol/L 21.0-32.0 [facility] Cobalamin (Vitamin B12) [Mass/Vol] 588 pg/mL 211-911 [facility] Free T4 [Mass/Vol] 1.30 ng/dL 0.76-1.[address] [facility] Globulin (S) [Mass/Vol] 3.8 g/dL 2.2-4.2 [facility] Urea nitrogen/Creatinine [Mass ratio] 11.7 mg/mg 10-20 [facility] Laboratory - Hematology and Cell countsOrdered By: Sharon Wynn on 05-08-2023 Erythrocyte distribution width (RBC) [Entitic vol] 52.6 fL 35.1-43.9 [facility] Erythrocyte distribution width (RBC) [Ratio] 15.6 % 11.6-14.6 [facility] Immature granulocytes/100 WBC (Bld) 0.300 % 0.0-0.9 [facility] Comment on above: IG% - Immature Granu locytes (promyelocytes, myelocytes and metamyelocytes) > 1% indicates that a LEFT SHIFT is Present. MCH (RBC) [Entitic mass] 30.3 pg 27.0-32.0 [facility] Nucleated RBC/100 WBC (Bld) [Ratio] 0 % 0-5 [facility] MCHC Auto (RBC) [Mass/Vol]Or dered By: Sharon Wynn on 05-08-2023 MCHC (RBC) [Mass/Vol] 32.9 g/dL 32-36 [facility] No Panel InformationOrdered By: Rajat Patel on 05-08-2023 Estimated GFR (MDRD) Amer 35 mL/min >60 [facility] Comment on above: GFR Calc Estimated GFR (MDRD) Non-Af Amer 29 mL/min >60 [facility] Comment on above: Non- GFR Calc Thyroid Stimulating Hormone (TSH) 3.91 uIU/mL 0.358-3.74 [facility] Platelets bldOrdered By: Erika Wynn on 05-08-2023 Platelets (Bld) [#/Vol] 286 10*3/uL 150-450 [facility] Serum or plasma albumin teressa urement (mass/volume)Ordered By: Rajat Patel on 05-08-2023 Albumin [Mass/Vol] 4.0 g/dL 3.2-5.[address] [facility] Serum or plasma albumin/glob ulin mass ratioOrdered By: Rajat Patel on 05-08-2023 Albumin/Globulin [Mass ratio] 1.1 {ratio} 0.9-2.4 [facility] Serum or plasma calcium teressa urement (mass/volume)Ordered By: Rajat Patel on 05-08-2023 Calcium [Mass/Vol] 9.4 mg/dL 8.5-10.[address] [facility] Serum or plasma creatinine m easurement (mass/volume)Ordered By: Rajat Patel on 05-08-2023 Creatinine [Mass/Vol] 1.80 mg/dL 0.55-1.02 [facility] Comment on above: The validity of the calculated GFR & GFRAA in patients over 70 years has not been determined. Clinical correlation is essential. Serum or plasma folate measu rement (mass/volume)Ordered By: Rajat Patel on 05-08-2023 Folate [Mass/Vol] 10.00 ng/mL 3.1-55.[address] [facility] Serum or plasma urea nitroge n measurement (mass/volume)Ordered By: Rajat Patel on 05-08-2023 Urea nitrogen [Mass/Vol] 21 mg/dL 7-18 [facility] Thin prep Papanicolaou smear with manual screeningOrdered By: Rajat Patel on 05-08-2023 Thin prep Papanicolaou smear with manual screening 20 U/L 15-37 [facility] Thin prep Papanicolaou smear with manual screening 11 5-15 [facility] Whole blood hemoglobin A1c/t otal hemoglobin ratio (mass fraction)Ordered By: Rajat Patel on 05-08-2023 HbA1c (Bld) [Mass fraction] 7.0 % 3.8-5.6 [facility] Comment on above: Normal < 5.7 % Predi abetic 5.7 - 6.4 % Diabetic >or= 6.5 % Please note range changes. Glucose Glucometer (BldC) [M ass/Vol]Ordered By: Dr. Michaud on 03-25-2023 Glucose [Mass/Vol] 101 mg/dL 74-[address] [facility] Comment on above: MANAGEMENT OF PATIEN T CARE PER NURSING PROTOCOL Basophil percentageOrdered B y: Dr. Michaud on 03-24-2023 Chloride [Moles/Vol] 109 mmol/L 98-107 [facility] Glucose [Mass/Vol] 79 mg/dL 74-[address] [facility] Potassium [Moles/Vol] 3.7 mmol/L 3.5-5.1 [facility] Sodium [Moles/Vol] 139 mmol/L 136-[address] [facility] Laboratory - Chemistry and C hemistry - challengeOrdered By: Dr. Michaud on 03-24-2023 CO2 [Moles/Vol] 20.0 mmol/L 21.0-32.0 [facility] Magnesium [Mass/Vol] 2.1 mg/dL 1.6-2.6 [facility] Urea nitrogen/Creatinine [Mass ratio] 16.0 mg/mg 10-20 [facility] No Panel InformationOrdered By: Dr. Michaud on 03-24-2023 Estimated Creatinine Clearance Calc 43.59 ml/min [facility] Estimated GFR (MDRD) Amer 65 mL/min >60 [facility] Comment on above: GFR Calc Estimated GFR (MDRD) Non-Af Amer 54 mL/min >60 [facility] Comment on above: Non- GFR Calc Serum or plasma calcium teressa urement (mass/volume)Ordered By: Dr. Michaud on 03-24-2023 Calcium [Mass/Vol] 9.7 mg/dL 8.5-10.[address] [facility] Serum or plasma creatinine m easurement (mass/volume)Ordered By: Dr. Michaud on 03-24-2023 Creatinine [Mass/Vol] 1.06 mg/dL 0.55-1.02 [facility] Comment on above: The validity of the calculated GFR & GFRAA in patients over 70 years has not been determined. Clinical correlation is essential. Serum or plasma urea nitroge n measurement (mass/volume)Ordered By: Dr. Michaud on 03-24-2023 Urea nitrogen [Mass/Vol] 17 mg/dL 7-18 [facility] Thin prep Papanicolaou smear with manual screeningOrdered By: Dr. Michaud on 03-24-2023 Thin prep Papanicolaou smear with manual screening 10 5-15 [facility] Absolute lymphocyte countOrd ered By: Dr. Michaud on 03-23-2023 Lymphocytes Auto (Unsp spec) [#/Vol] 1.07 10*3/uL 0.83-4.51 [facility] Basophil percentageOrdered B y: Dr. Michaud on 03-23-2023 Basophils/100 WBC (Bld) 0.1 % 0-1 [facility] Bilirubin [Mass/Vol] 0.70 mg/dL 0.20-1.00 [facility] Comment on above: For patients on eltr ombopag therapy, use of Dimension Pierre Part TBIL is not recommended. Eosinophils/100 WBC (Bld) 0.4 % 0-5 [facility] Neutrophils (Bld) [#/Vol] 5.5 10*3/uL 2.0-7.7 [facility] Neutrophils/100 WBC (Bld) 75.1 % 47-70 [facility] Protein [Mass/Vol] 6.9 g/dL 6.4-8.[address] [facility] WBC (Bld) [#/Vol] 7.3 10*3/uL 4.4-11.[address] [facility] Blood erythrocytes count (nu mber/volume)Ordered By: Dr. Michaud on 03-23-2023 RBC (Bld) [#/Vol] 3.97 10*6/uL 4.2-5.4 [facility] Blood hemoglobin measurement (mass/volume)Ordered By: Dr. Michaud on 03-23-2023 Hemoglobin (Bld) [Mass/Vol] 11.8 g/dL 12.0-15.0 [facility] Blood lymphocytes/100 leukoc ytesOrdered By: Dr. Michaud on 03-23-2023 Lymphocytes/100 WBC (Bld) 14.7 % 19-41 [facility] Blood monocytes/100 leukocyt esOrdered By: Dr. Michaud on 03-23-2023 Monocytes/100 WBC (Bld) 9.6 % 0-10 [facility] Blood platelet mean volumeOr dered By: Dr. Michaud on 03-23-2023 Platelet mean volume (Bld) [Entitic vol] 9.4 fL 6.2-12.0 [facility] Culture, urineOrdered By: Dr Rubén Michaud on 03-23-2023 Bacteria identified Cx Nom (U) Presumptive E. coli [facility] Determination of erythrocyte mean corpuscular volume (MCV)Ordered By: Dr. Michaud on 03-23-2023 MCV (RBC) [Entitic vol] 90.2 fL 81-99 [facility] Direct bilirubinOrdered By: Dr. Michaud on 03-23-2023 Bilirubin.direct [Mass/Vol] 0.23 mg/dL 0.00-0.30 [facility] Hematocrit Auto (Bld) [Volum e fraction]Ordered By: Dr. Michaud on 03-23-2023 Hematocrit (Bld) [Volume fraction] 35.8 % 37-47 [facility] Laboratory - Chemistry and C hemistry - challengeOrdered By: Dr. Michaud on 03-23-2023 ALP [Catalytic activity/Vol] 79 U/L 45-117 [facility] ALT [Catalytic activity/Vol] 27 U/L 13-56 [facility] Globulin (S) [Mass/Vol] 3.7 g/dL 2.2-4.2 [facility] Laboratory - Hematology and Cell countsOrdered By: Dr. Michaud on 03-23-2023 Erythrocyte distribution width (RBC) [Entitic vol] 48.8 fL 35.1-43.9 [facility] Erythrocyte distribution width (RBC) [Ratio] 14.9 % 11.6-14.6 [facility] Immature granulocytes/100 WBC (Bld) 0.100 % 0.0-0.9 [facility] Comment on above: IG% - Immature Granu locytes (promyelocytes, myelocytes and metamyelocytes) > 1% indicates that a LEFT SHIFT is Present. MCH (RBC) [Entitic mass] 29.7 pg 27.0-32.0 [facility] Nucleated RBC/100 WBC (Bld) [Ratio] 0 % 0-5 [facility] MCHC Auto (RBC) [Mass/Vol]Or dered By: Dr. Michaud on 03-23-2023 MCHC (RBC) [Mass/Vol] 33.0 g/dL 32-36 [facility] Platelets bldOrdered By: Dr. Michaud on 03-23-2023 Platelets (Bld) [#/Vol] 197 10*3/uL 150-450 [facility] Serum or plasma albumin teressa urement (mass/volume)Ordered By: Dr. Michaud on 03-23-2023 Albumin [Mass/Vol] 3.2 g/dL 3.2-5.[address] [facility] Thin prep Papanicolaou smear with manual screeningOrdered By: Dr. Michaud on 03-23-2023 Thin prep Papanicolaou smear with manual screening 15 U/L 15-37 [facility] Basophil percentageOrdered B y: Dr. Rod on 03-21-2023 Basophil percentage 0-5 SEEN /hpf 0-5 [facility] Bilirubin Test strip Ql (U)O rdered By: Dr. Rod on 03-21-2023 Bilirubin Ql (U) Negative Negative [facility] Culture, urineOrdered By: Rod Michaud on 03-21-2023 Bacteria identified Cx Nom (U) Presumptive E. coli [facility] Ketones Test strip Ql (U)Ord ered By: Dr. Rod on 03-21-2023 Ketones Ql (U) 15 mg/dl Negative [facility] Mucus LM Ql (Urine sed)Order ed By: Dr. Rod on 03-21-2023 Mucus Ql (Urine sed) 0 SEEN /hpf [facility] Nitrite Test strip Ql (U)Ord ered By: Dr. Rod on 03-21-2023 Nitrite Ql (U) Positive Negative [facility] Protein Test strip Ql (U)Ord ered By: Dr. Rod on 03-21-2023 Protein Ql (U) 30 mg/dl Negative [facility] Squamous epithelial cells de tection in urine sediment by light microscopyOrdered By: Dr. Rod on 03-21-2023 Epithelial cells.squamous LM Ql (Urine sed) 0-5 SEEN /hpf 5-10 [facility] Urine blood detectionOrdered By: Dr. Rod on 03-21-2023 RBC Ql (U) 150 /ul Negative [facility] RBC Ql (U) 10-25 SEEN /hpf 0-5 [facility] Urine clarityOrdered By: Dr. Rod on 03-21-2023 Clarity (U) Sl. Cloudy Clear [facility] Urine color determinationOrd ered By: Dr. Rod on 03-21-2023 Color (U) Yellow Yellow [facility] Urine glucose detectionOrder ed By: Dr. Rod on 03-21-2023 Glucose Ql (U) 250 mg/dl Normal [facility] Urine leukocyte esterase det ection by dipstickOrdered By: Dr. Rod on 03-21-2023 Leukocyte esterase Test strip Ql (U) 25 /ul Negative [facility] Urine pHOrdered By: Dr. Sharmila wing on 03-21-2023 pH (U) 5.0 [pH] 5.0 - 8.0 [facility] Urine sediment bacteria coun t by microscopy (number/high power field)Ordered By: Dr. Rod on 03-21-2023 Bacteria LM.HPF (Urine sed) [#/Area] 1 /[HPF] None Seen [facility] Urine specific gravity measu rementOrdered By: Dr. Rod on 03-21-2023 Specific gravity (U) [Rel density] 1.015 1.002-1.03 0 [facility] Urobilinogen Auto test strip Ql (U)Ordered By: Dr. Rod on 03-21-2023 Urobilinogen Ql (U) Normal mg/dl Normal [facility] Basophil percentageOrdered B y: Dr. Rod on 03-20-2023 Basophil percentage 3.7 mg/dL 2.5-4.9 [facility] No Panel InformationOrdered By: Dr. Rod on 03-20-2023 Thyroid Stimulating Hormone (TSH) 1.17 uIU/mL 0.358-3.74 [facility] Absolute lymphocyte countOrd ered By: Dr. Stubbs on 03-19-2023 Lymphocytes Auto (Unsp spec) [#/Vol] 2.60 10*3/uL 0.83-4.51 [facility] Basophil percentageOrdered B y: Dr. Stubbs on 03-19-2023 Basophils/100 WBC (Bld) 0.6 % 0-1 [facility] Chloride [Moles/Vol] 109 mmol/L 98-107 [facility] Eosinophils/100 WBC (Bld) 1.1 % 0-5 [facility] Glucose [Mass/Vol] 205 mg/dL 74-[address] [facility] Comment on above: Glucose result great er than or equal to 200 mg/dLsuggests DIABETES MELLITUS per A.D.A. criteria. Neutrophils (Bld) [#/Vol] 5.7 10*3/uL 2.0-7.7 [facility] Neutrophils/100 WBC (Bld) 61.1 % 47-70 [facility] Potassium [Moles/Vol] 5.2 mmol/L 3.5-5.1 [facility] Sodium [Moles/Vol] 137 mmol/L 136-[address] [facility] WBC (Bld) [#/Vol] 9.4 10*3/uL 4.4-11.[address] [facility] Blood erythrocytes count (nu mber/volume)Ordered By: Dr. Stubbs on 03-19-2023 RBC (Bld) [#/Vol] 3.95 10*6/uL 4.2-5.4 [facility] Blood hemoglobin measurement (mass/volume)Ordered By: Dr. Stubbs on 03-19-2023 Hemoglobin (Bld) [Mass/Vol] 11.8 g/dL 12.0-15.0 [facility] Blood lymphocytes/100 leukoc ytesOrdered By: Dr. Stubbs on 03-19-2023 Lymphocytes/100 WBC (Bld) 27.8 % 19-41 [facility] Blood monocytes/100 leukocyt esOrdered By: Dr. Stubbs on 03-19-2023 Monocytes/100 WBC (Bld) 8.9 % 0-10 [facility] Blood platelet mean volumeOr dered By: Dr. Stubbs on 03-19-2023 Platelet mean volume (Bld) [Entitic vol] 10.1 fL 6.2-12.0 [facility] Determination of erythrocyte mean corpuscular volume (MCV)Ordered By: Dr. Stubbs on 06-19-2023 MCV (RBC) [Entitic vol] 94.7 fL 81-99 [facility] Glucose Glucometer (BldC) [M ass/Vol]Ordered By: Dr. Stubbs on 03-19-2023 Glucose [Mass/Vol] 185 mg/dL 74-[address] [facility] Comment on above: MANAGEMENT OF PATIEN T CARE PER NURSING PROTOCOL Hematocrit Auto (Bld) [Volum e fraction]Ordered By: Dr. Stubbs on 03-19-2023 Hematocrit (Bld) [Volume fraction] 37.4 % 37-47 [facility] Laboratory - Chemistry and C hemistry - challengeOrdered By: Dr. Stubbs on 03-19-2023 CO2 [Moles/Vol] 18.0 mmol/L 21.0-32.0 [facility] Urea nitrogen/Creatinine [Mass ratio] 19.8 mg/mg 10-20 [facility] Laboratory - Hematology and Cell countsOrdered By: Dr. Stubbs on 03-19-2023 Erythrocyte distribution width (RBC) [Entitic vol] 53.3 fL 35.1-43.9 [facility] Erythrocyte distribution width (RBC) [Ratio] 15.5 % 11.6-14.6 [facility] Immature granulocytes/100 WBC (Bld) 0.500 % 0.0-0.9 [facility] Comment on above: IG% - Immature Granu locytes (promyelocytes, myelocytes and metamyelocytes) > 1% indicates that a LEFT SHIFT is Present. MCH (RBC) [Entitic mass] 29.9 pg 27.0-32.0 [facility] Nucleated RBC/100 WBC (Bld) [Ratio] 0 % 0-5 [facility] MCHC Auto (RBC) [Mass/Vol]Or dered By: Dr. Stubbs on 03-19-2023 MCHC (RBC) [Mass/Vol] 31.6 g/dL 32-36 [facility] No Panel InformationOrdered By: Dr. Stubbs on 03-19-2023 Troponin I High Sensitivity 27 pg/mL 3.0-54.0 [facility] Comment on above: Please Note: New Orly t Units and Gender Specific Reference Ranges. For more information see Policy Stat Procedure Pierre Part High Sensitivity Troponin (TNIH) and attachments. Estimated Creatinine Clearance Calc 21.99 ml/min [facility] Estimated GFR (MDRD) Amer 31 mL/min >60 [facility] Comment on above: GFR Calc Estimated GFR (MDRD) Non-Af Amer 26 mL/min >60 [facility] Comment on above: Non- GFR Calc Troponin I High Sensitivity 20 pg/mL 3.0-54.0 [facility] Comment on above: Please Note: New Orly t Units and Gender Specific Reference Ranges. For more information see Policy Stat Procedure Pierre Part High Sensitivity Troponin (TNIH) and attachments. Platelets bldOrdered By: Dr. Stubbs on 03-19-2023 Platelets (Bld) [#/Vol] 230 10*3/uL 150-450 [facility] Serum or plasma calcium teressa urement (mass/volume)Ordered By: Dr. Stubbs on 03-19-2023 Calcium [Mass/Vol] 9.3 mg/dL 8.5-10.[address] [facility] Serum or plasma creatinine m easurement (mass/volume)Ordered By: Dr. Stubbs on 03-19-2023 Creatinine [Mass/Vol] 2.02 mg/dL 0.55-1.02 [facility] Comment on above: The validity of the calculated GFR & GFRAA in patients over 70 years has not been determined. Clinical correlation is essential. Serum or plasma urea nitroge n measurement (mass/volume)Ordered By: Dr. Stubbs on 03-19-2023 Urea nitrogen [Mass/Vol] 40 mg/dL 7-18 [facility] Thin prep Papanicolaou smear with manual screeningOrdered By: Dr. Stubbs on 03-19-2023 Thin prep Papanicolaou smear with manual screening 10 5-15 [facility] Chart Maintenanceon 08-09-20 17 HbA1c 6.5 % Invalid Interpretation Code [employer] [facility] Work Phone: Clinical Lists Update: Clini deana Noteon 03-20-2017 Left ventricular Ejection fraction 60 % Invalid Interpretation Code [facility] Work Phone: [phone] Office Visiton 02-20-2017 Documentation of current medications (procedure) Done Invalid Interpretation Code [facility] Work Phone: [phone] Fall risk assessment No Invalid Interpretation Code [facility] Work Phone: [phone] Replaced Document: [employer] E CG Observationson 02-20-2017 EKG QRS axis -39 deg [employer] Work Phone: [phone] electrocardiogram interpretation Atrial fibrillation -Nonspecific QRS widening and anterior fascicular block. - Nonspecific T-abnormality. ABNORMAL Invalid Interpretation Code [facility] Work Phone: [phone] GE use only - for [employer] import when terms are not otherwise specified 411 ms Invalid Interpretation Code [facility] Work Phone: [phone] Interpretation Atrial fibrillation -Nonspecific QRS widening and anterior fascicular block. - Nonspecific T-abnormality. ABNORMAL [facility] Work Phone: [phone] P [place] 1 deg [employer] Work Phone: [phone] P wave axis, electrocardiogram 1 deg Invalid Interpretation Code [facility] Work Phone: [phone] IA Interval 0 ms [employer] Work Phone: [phone] IA interval, electrocardiogram 0 ms Invalid Interpretation Code [facility] Work Phone: [phone] Pulse (Heart Rate) 77 /min Invalid Interpretation Code [facility] Work Phone: [phone] QRS axis, electrocardiogram -39 deg Invalid Interpretation Code [facility] Work Phone: [phone] QRS Duration 128 ms [employer] Work Phone: [phone] QRS duration, electrocardiogram 128 ms Invalid Interpretation Code [facility] Work Phone: [phone] QT Interval new path ms [employer] Work Phone: [phone] QT interval, electrocardiogram new path ms Invalid Interpretation Code [facility] Work Phone: QTc [place] 411 ms [employer] Work Phone: [phone] T [place] 90 deg [employer] Work Phone: [phone] T wave axis, electrocardiogram 90 deg Invalid Interpretation Code [employer] Work Phone: [phone] Clinical Lists Update: [facility] 02-19-2017 Left ventricular Ejection fraction 55 % Invalid Interpretation Code [employer] Work Phone: [phone] Clinical Lists Update: [facility] 01-10-2017 Albumin [Mass/Vol] 4.0 g/dL Invalid Interpretation Code [employer] Work Phone: [phone] Albumin/Globulin [Mass ratio] 1.1 {ratio} Invalid Interpretation Code [facility] Work Phone: [phone] Alkaline phosphatase (ALP) 67 U/L Invalid Interpretation Code [facility] Work Phone: [phone] ALP (Bld) [Catalytic activity/Vol] 67 U/L [facility] Work Phone: [phone] ALT [Catalytic activity/Vol] 22 U/L Invalid Interpretation Code [facility] Work Phone: [phone] Anion gap 8 mmol/L Invalid Interpretation Code [facility] Work Phone: [phone] Anion gap [Moles/Vol] 8 mmol/L [facility] [employer] Work Phone: [phone] AST [Catalytic activity/Vol] 16 U/L Invalid Interpretation Code [facility] [employer] Work Phone: [phone] Bilirubin [Mass/Vol] 0.50 mg/dL Invalid Interpretation Code [facility] [employer] Work Phone: [phone] Calcium [Mass/Vol] 9.4 mg/dL Invalid Interpretation Code [facility] Work Phone: [phone] Chloride [Moles/Vol] 105 mmol/L Invalid Interpretation Code [employer] Work Phone: [phone] CO2 28.0 mmol/L Invalid Interpretation Code [facility] Work Phone: [phone] CO2 (BldV) [Partial pressure] 28.0 mmol/L [facility] Work Phone: [phone] Creatinine [Mass/Vol] 1.28 mg/dL High [facility] Work Phone: [phone] eGFR (non-black) 53 mL/min/{1.73_m2} Low [employer] Work Phone: [phone] Free T4 [Mass/Vol] 0.95 ng/dL Invalid Interpretation Code [employer] Work Phone: [phone] GFR/1.73 sq M predicted among non-blacks MDRD (S/P/Bld) [Vol rate/Area] 44 mL/min/{1.73_m2} Low [employer] Work Phone: [phone] Globulin 3.6 g/dL High [facility] Work Phone: [phone] Globulin (S) [Mass/Vol] 3.6 g/dL High [facility] Work Phone: [phone] Glomerular Filtration Rate 53 mL/min/1.73m2 Low [facility] Work Phone: [phone] Glucose 122 mg/dL High [facility] Work Phone: [phone] Glucose [Mass/Vol] 122 mg/dL High [facility] Work Phone: [phone] Potassium [Moles/Vol] 4.2 mmol/L Invalid Interpretation Code [facility] [employer] Work Phone: [phone] Protein [Mass/Vol] 7.6 g/dL Invalid Interpretation Code [facility] [employer] Work Phone: [phone] Sodium [Moles/Vol] 141 mmol/L Invalid Interpretation Code [facility] Work Phone: [phone] T4 [Mass/Vol] 8.3 ug/dL Invalid Interpretation Code [facility] Work Phone: [phone] TSH Qn 9.65 u[iU]/mL High [facility] Work Phone: [phone] Urea nitrogen [Mass/Vol] 21 mg/dL High [facility] Work Phone: [phone] Urea nitrogen/Creatinine [Mass ratio] 16.4 mg/mg Invalid Interpretation Code [facility] Work Phone: [phone] Append: Cardiac Referralon 1 11-07-2015 Clinical consultation report (record artifact) [id number]^03/13/2016 Invalid Interpretation Code [facility] Work Phone: [phone] Office Visit: [facility] 03-08-20 16 Dietary management education, guidance, and counseling (procedure) yes Invalid Interpretation Code [facility] Work Phone: [phone] Replaced Document: [facility] E CG Observationson 03-08-2016 EKG QRS axis -42 deg [facility] [employer] Work Phone: [phone] Interpretation Possible atrial fibrillation -Intraventricular conduction defect and left axis -possible anterior fascicular block consider ventricular hypertrophy. ABNORMAL [facility] Work Phone: [phone] P [place] 1 deg [facility] Work Phone: [phone] IA Interval 0 ms [facility] Work Phone: [phone] QRS Duration 136 ms [facility] Work Phone: [phone] QT Interval new path ms [facility] Work Phone: [phone] QTc [place] 445 ms [facility] Work Phone: [phone] T [place] 45 deg [facility] Work Phone: [phone] Office Visiton 11-09-2015 Tobacco smoking status NHIS Tobacco smoking status NHIS Invalid Interpretation Code 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 Erythrocytes (RBC) 3.95 10*6/uL Low [facility] [employer] Work Phone: [phone] Hematocrit (Bld) [Volume fraction] 37.6 % [facility] [employer] Work Phone: [phone] Hematocrit (HCT) 37.6 % Invalid Interpretation Code [facility] Work Phone: [phone] Hemoglobin (Bld) [Mass/Vol] 12.7 g/dL Invalid Interpretation Code [facility] Work Phone: [phone] Natriuretic peptide B (Bld) [Mass/Vol] 338.2 pg/mL High [facility] Work Phone: [phone] Platelets 197 10*3/mm3 Invalid Interpretation Code [facility] [employer] Work Phone: [phone] Platelets (Bld) [#/Vol] 197 10*3/mm3 [facility] Work Phone: RBC (Bld) [#/Vol] 3.95 10*6/uL Low [facility] Work Phone: [phone] WBC (Bld) [#/Vol] 10.5 10*3/uL [facility] Work Phone: [phone] WBC (Leukocytes) 10.5 10*3/uL Invalid Interpretation Code [facility] Work Phone: [phone] Vital Signs Date Time Vital Sign Value Performing Clinician [facility] 02-10-2025 10:47-0400 Body mass index (BMI) [Ratio] 26.08 kg/m2 Ivanna Ren WOOD MECHANIST - HAND TRIMMER Work Phone: [facility] 02-10-2025 10:47-0400 Body weight 66.77 kg Ivanna Ren WOOD MECHANIST - HAND TRIMMER Work Phone: [facility] 02-10-2025 10:47-0400 Diastolic blood pressure 59 mm[Hg] Ivanna Ren WOOD MECHANIST - HAND TRIMMER Work Phone: [facility] 02-10-2025 10:47-0400 Heart rate 77 /min Ivanna Ren WOOD MECHANIST - HAND TRIMMER Work Phone: [facility] 02-10-2025 10:47-0400 Systolic blood pressure 98 mm[Hg] Ivanna Ren WOOD MECHANIST - HAND TRIMMER Work Phone: [facility] 11-19-2024 10:20-0500 Body height 162.6 cm Chloe Strong MD Work Phone: [facility] 11-19-2024 10:20-0500 Body mass index (BMI) [Ratio] 23.17 kg/m2 Chloe Strong MD Work Phone: [facility] 11-19-2024 10:20-0500 Body weight 61.24 kg Chloe Strong MD Work Phone: [facility] 11-19-2024 10:20-0500 Diastolic blood pressure 62 mm[Hg] Chloe Strong MD Work Phone: [facility] 11-19-2024 10:20-0500 Heart rate 86 /min Chloe Strong MD Work Phone: [facility] 11-19-2024 10:20-0500 Respiratory rate 18 /min Chloe Strong MD Work Phone: [facility] 11-19-2024 10:20-0500 SaO2% (BldA) [Mass fraction] 93 % Chloe Strong MD Work Phone: [facility] 11-19-2024 10:20-0500 Systolic blood pressure 98 mm[Hg] Chloe Strong MD Work Phone: [facility] 08-12-2024 11:04-0500 Body mass index (BMI) [Ratio] 26.15 kg/m2 Ivanna Reynairdesiree WOOD MECHANIST - HAND TRIMMER Work Phone: [facility] 08-12-2024 11:04-0500 Body weight 66.95 kg Ivanna Reynairk WOOD MECHANIST - HAND TRIMMER Work Phone: [facility] 08-12-2024 11:04-0500 Diastolic blood pressure 62 mm[Hg] Ivanna Reynairk WOOD MECHANIST - HAND TRIMMER Work Phone: [facility] 08-12-2024 11:04-0500 Heart rate 75 /min Ivanna Reynairk WOOD MECHANIST - HAND TRIMMER Work Phone: [facility] 08-12-2024 11:04-0500 Systolic blood pressure 104 mm[Hg] Ivanna Reynairk WOOD MECHANIST - HAND TRIMMER Work Phone: [facility] 04-29-2024 11:03-0400 Body mass index (BMI) [Ratio] 27.35 kg/m2 Ivanna Reynairdesiree WOOD MECHANIST - HAND TRIMMER Work Phone: [facility] [employer] 04-29-2024 11:03-0400 Body weight 70.03 kg Ivanna Reynairdesiree WOOD MECHANIST - HAND TRIMMER Work Phone: [facility] [employer] 04-29-2024 11:03-0400 Diastolic blood pressure 64 mm[Hg] Ivanna Ren WOOD MECHANIST - HAND TRIMMER Work Phone: [facility] [employer] 04-29-2024 11:03-0400 Heart rate 86 /min Ivanna Ren WOOD MECHANIST - HAND TRIMMER Work Phone: [facility] [employer] 04-29-2024 11:03-0400 Systolic blood pressure 111 mm[Hg] Ivanna Ren WOOD MECHANIST - HAND TRIMMER Work Phone: [facility] 01-29-2024 13:40-0400 Body mass index (BMI) [Ratio] 26.93 kg/m2 Ivanna Ren WOOD MECHANIST - HAND TRIMMER Work Phone: [facility] [employer] 01-29-2024 13:40-0400 Body weight 68.95 kg Ivanna Ren WOOD MECHANIST - HAND TRIMMER Work Phone: [facility] 01-29-2024 13:40-0400 Diastolic blood pressure 68 mm[Hg] Ivanna Ren WOOD MECHANIST - HAND TRIMMER Work Phone: [facility] 01-29-2024 13:40-0400 Systolic blood pressure 115 mm[Hg] Ivanna Ren WOOD MECHANIST - HAND TRIMMER Work Phone: [facility] [employer] 01-07-2024 11:29-0400 Body weight 67.59 kg Liza Ortiz MD Work Phone: [facility] 01-07-2024 11:29-0400 Diastolic blood pressure 65 mm[Hg] Liza Ortiz MD Work Phone: [facility] 01-07-2024 11:29-0400 Heart rate 75 /min Liza Ortiz MD Work Phone: [facility] 01-07-2024 11:29-0400 SaO2% (BldA) [Mass fraction] 98 % Liza Ortiz MD Work Phone: [facility] 01-07-2024 11:29-0400 Systolic blood pressure 113 mm[Hg] Liza Ortiz MD Work Phone: [facility] 08-16-2023 09:40-0500 Body height 165.[address] Rajat Patel Work Phone: [facility] 08-16-2023 09:40-0500 Body mass index (BMI) [Ratio] 24.4 kg/m2 Dr. Rajat Patel Work Phone: [facility] 08-16-2023 09:40-0500 Body weight 66.[address] Rajat Patel Work Phone: [facility] 08-16-2023 09:40-0500 Diastolic blood pressure 61 mm[Hg] Dr. Rajat Patel Work Phone: [facility] 08-16-2023 09:40-0500 Heart rate 123 /min Dr. Rajat Patel Work Phone: [facility] 08-16-2023 09:40-0500 Respiratory rate 18 /min Dr. Rajat Patel Work Phone: [facility] 08-16-2023 09:40-0500 Systolic blood pressure 97 mm[Hg] Dr. Rajat Patel Work Phone: [facility] 07-31-2023 10:57-0400 Body mass index (BMI) [Ratio] 26.43 kg/m2 Ivanna Ren WOOD MECHANIST - HAND TRIMMER Work Phone: [facility] 07-31-2023 10:57-0400 Body weight 67.68 kg Ivanna Ren WOOD MECHANIST - HAND TRIMMER Work Phone: [facility] 07-19-2023 13:23-0400 Body height 165.1 cm No Primary Care Physician [facility] 07-19-2023 13:23-0400 Body mass index (BMI) [Ratio] 25.2 kg/m2 No Primary Care Physician [facility] 07-19-2023 13:23-0400 Body weight 68.94 kg No Primary Care Physician [facility] 07-19-2023 13:23-0400 Diastolic blood pressure 64 mm[Hg] No Primary Care Physician [facility] 07-19-2023 13:23-0400 Heart rate 124 /min No Primary Care Physician [facility] 07-19-2023 13:23-0400 Respiratory rate 24 /min No Primary Care Physician [facility] 07-19-2023 13:23-0400 Systolic blood pressure 104 mm[Hg] No Primary Care Physician [facility] 07-09-2023 12:59-0400 Body height 165.1 cm No Primary Care Physician [facility] 07-09-2023 12:59-0400 Body mass index (BMI) [Ratio] 25 kg/m2 No Primary Care Physician [facility] 07-09-2023 12:59-0400 Body weight 68.03 kg No Primary Care Physician [facility] 07-09-2023 12:59-0400 Diastolic blood pressure 70 mm[Hg] No Primary Care Physician [facility] 07-09-2023 12:59-0400 Heart rate 124 /min No Primary Care Physician [facility] 07-09-2023 12:59-0400 Respiratory rate 24 /min No Primary Care Physician [facility] 07-09-2023 12:59-0400 Systolic blood pressure 112 mm[Hg] No Primary Care Physician [facility] 07-06-2023 10:56-0400 Body height 162.6 cm Randi Villa APRN.HAND TRIMMER Work Phone: [facility] 07-06-2023 10:56-0400 Body weight 67.31 kg Randi Villa APRN.HAND TRIMMER Work Phone: [facility] 07-06-2023 10:56-0400 Diastolic blood pressure 62 mm[Hg] Randi Villa APRN.HAND TRIMMER Work Phone: [facility] 07-06-2023 10:56-0400 Heart rate 78 /min Randi Villa APRN.HAND TRIMMER Work Phone: [facility] 07-06-2023 10:56-0400 Respiratory rate 18 /min Randi Villa APRN.HAND TRIMMER Work Phone: [facility] 07-06-2023 10:56-0400 SaO2% (BldA) [Mass fraction] 99 % Randi Villa APRN.HAND TRIMMER Work Phone: [facility] 07-06-2023 10:56-0400 Systolic blood pressure 96 mm[Hg] Randi Villa APRN.HAND TRIMMER Work Phone: [facility] 06-22-2023 12:08-0400 Heart rate 132 /min No Primary Care Physician [facility] 06-22-2023 11:20-0400 Body height 165.1 cm No Primary Care Physician [facility] 06-22-2023 11:20-0400 Body mass index (BMI) [Ratio] 25 kg/m2 No Primary Care Physician [facility] 06-22-2023 11:20-0400 Body weight 68.03 kg No Primary Care Physician [facility] 06-22-2023 11:20-0400 Diastolic blood pressure 71 mm[Hg] No Primary Care Physician [facility] 06-22-2023 11:20-0400 Respiratory rate 18 /min No Primary Care Physician [facility] 06-22-2023 11:20-0400 SaO2% (BldA) [Mass fraction] 96 % No Primary Care Physician [facility] 06-22-2023 11:20-0400 Systolic blood pressure 112 mm[Hg] No Primary Care Physician [facility] 06-20-2023 11:04-0400 Diastolic blood pressure 61 mm[Hg] No Primary Care Physician [facility] 06-20-2023 11:04-0400 Heart rate 107 /min No Primary Care Physician [facility] 06-20-2023 11:04-0400 Respiratory rate 18 /min No Primary Care Physician [facility] 06-20-2023 11:04-0400 SaO2% (BldA) [Mass fraction] 98 % No Primary Care Physician [facility] 06-20-2023 11:04-0400 Systolic blood pressure 94 mm[Hg] No Primary Care Physician [facility] 06-20-2023 09:24-0400 Body mass index (BMI) [Ratio] 25.2 kg/m2 No Primary Care Physician [facility] 06-20-2023 09:24-0400 Body temperature 97.6 [degF] No Primary Care Physician [facility] 06-20-2023 09:24-0400 Body weight 68.62 kg No Primary Care Physician [facility] 06-19-2023 10:34-0400 Body weight 71.21 kg No Primary Care Physician [facility] 06-19-2023 10:25-0400 Body mass index (BMI) [Ratio] 24.5 kg/m2 No Primary Care Physician [facility] 06-19-2023 10:25-0400 Body temperature 98.8 [degF] No Primary Care Physician [facility] 06-19-2023 10:25-0400 Diastolic blood pressure 68 mm[Hg] No Primary Care Physician [facility] 06-19-2023 10:25-0400 Heart rate 78 /min No Primary Care Physician [facility] 06-19-2023 10:25-0400 Respiratory rate 14 /min No Primary Care Physician [facility] 06-19-2023 10:25-0400 SaO2% (BldA) [Mass fraction] 95 % No Primary Care Physician [facility] 06-19-2023 10:25-0400 Systolic blood pressure 113 mm[Hg] No Primary Care Physician [facility] 05-29-2023 07:10-0400 Diastolic blood pressure 94 mm[Hg] No Primary Care Physician [facility] 05-29-2023 07:10-0400 Heart rate 88 /min No Primary Care Physician [facility] 05-29-2023 07:10-0400 Respiratory rate 17 /min No Primary Care Physician [facility] 05-29-2023 07:10-0400 SaO2% (BldA) [Mass fraction] 98 % No Primary Care Physician [facility] 05-29-2023 07:10-0400 Systolic blood pressure 156 mm[Hg] No Primary Care Physician [facility] 05-29-2023 06:10-0400 Body temperature 97.8 [degF] No Primary Care Physician [facility] 05-28-2023 22:13-0400 Body mass index (BMI) [Ratio] 24.4 kg/m2 No Primary Care Physician [facility] 05-28-2023 22:13-0400 Body weight 70.76 kg No Primary Care Physician [facility] 05-28-2023 21:25-0400 Body height 170.18 cm No Primary Care Physician [facility] 05-24-2023 09:23-0400 Body weight 70.3 kg No Primary Care Physician [facility] 05-23-2023 08:51-0400 Body mass index (BMI) [Ratio] 25 kg/m2 No Primary Care Physician [facility] 05-07-2023 14:16-0400 Body weight 70.3 kg No Primary Care Physician [facility] 05-07-2023 14:16-0400 Diastolic blood pressure 67 mm[Hg] No Primary Care Physician [facility] 05-07-2023 14:16-0400 Heart rate 89 /min No Primary Care Physician [facility] 05-07-2023 14:16-0400 Respiratory rate 22 /min No Primary Care Physician [facility] 05-07-2023 14:16-0400 Systolic blood pressure 110 mm[Hg] No Primary Care Physician [facility] 05-07-2023 12:55-0400 Body height 167.64 cm No Primary Care Physician [facility] 04-24-2023 10:56-0400 Diastolic blood pressure 68 mm[Hg] Ivanna Ren APRN - HAND TRIMMER Work Phone: [facility] 04-24-2023 10:56-0400 Heart rate 90 /min Ivanna Ren APRN - HAND TRIMMER Work Phone: [facility] 04-24-2023 10:56-0400 Systolic blood pressure 112 mm[Hg] Ivanna Ren APRN - HAND TRIMMER Work Phone: [facility] 04-24-2023 10:55-0400 Body height 160 cm Ivanna Ren WOOD MECHANIST - HAND TRIMMER Work Phone: [facility] 04-24-2023 10:55-0400 Body mass index (BMI) [Ratio] 28.56 kg/m2 Ivanna Ren APRN - HAND TRIMMER Work Phone: [facility] 04-24-2023 10:55-0400 Body weight 73.12 kg Ivanna Ren APRN - HAND TRIMMER Work Phone: [facility] 04-09-2023 10:07-0400 Body height 167.64 cm No Primary Care Physician [facility] 04-09-2023 10:07-0400 Body mass index (BMI) [Ratio] 26.4 kg/m2 No Primary Care Physician [facility] 04-09-2023 10:07-0400 Body weight 74.38 kg No Primary Care Physician [facility] 04-09-2023 10:07-0400 Diastolic blood pressure 68 mm[Hg] No Primary Care Physician [facility] 04-09-2023 10:07-0400 Heart rate 78 /min No Primary Care Physician [facility] 04-09-2023 10:07-0400 Respiratory rate 16 /min No Primary Care Physician [facility] 04-09-2023 10:07-0400 Systolic blood pressure 113 mm[Hg] No Primary Care Physician [facility] 03-25-2023 08:00-0400 Body temperature 98 [degF] No Primary Care Physician [facility] 03-25-2023 08:00-0400 Diastolic blood pressure 69 mm[Hg] No Primary Care Physician [facility] 03-25-2023 08:00-0400 Heart rate 90 /min No Primary Care Physician [facility] 03-25-2023 08:00-0400 Respiratory rate 14 /min No Primary Care Physician [facility] 03-25-2023 08:00-0400 SaO2% (BldA) [Mass fraction] 99 % No Primary Care Physician [facility] 03-25-2023 08:00-0400 Systolic blood pressure 109 mm[Hg] No Primary Care Physician [facility] 03-25-2023 04:29-0400 Body mass index (BMI) [Ratio] 25.9 kg/m2 No Primary Care Physician [facility] 03-25-2023 04:29-0400 Body weight 73 kg No Primary Care Physician [facility] 03-21-2023 07:08-0400 Inhaled oxygen concentration 94 % No Primary Care Physician [facility] 03-21-2023 07:08-0400 Inhaled oxygen flow rate 2 L/min No Primary Care Physician [facility] 03-20-2023 14:23-0400 Body height 167.64 cm No Primary Care Physician [facility] 03-19-2023 21:18-0400 Body height 167.64 cm [facility] 03-19-2023 21:18-0400 Body mass index (BMI) [Ratio] 28.3 kg/m2 [facility] 03-19-2023 21:18-0400 Body weight 79.7 kg [facility] 03-19-2023 21:00-0400 Diastolic blood pressure 55 mm[Hg] [facility] 03-19-2023 21:00-0400 Heart rate 79 /min [facility] 03-19-2023 21:00-0400 Inhaled oxygen flow rate 5 L/min [facility] 03-19-2023 21:00-0400 Respiratory rate 25 /min [facility] 03-19-2023 21:00-0400 SaO2% (BldA) [Mass fraction] 100 % [facility] 03-19-2023 21:00-0400 Systolic blood pressure 96 mm[Hg] [facility] 03-19-2023 20:25-0400 Body temperature 97.6 [degF] [facility] 02-20-2017 14:29-0400 Heart rate 77 /min Amalia Patel [facility] Work Phone: 02-20-2017 14:14-0400 BMI (Body Mass Index) 29.37 kg/m2 [facility] Work Phone: 02-20-2017 14:14-0400 BP Diastolic 60 mm[Hg] Amalia Patel [facility] Work Phone: 02-20-2017 14:14-0400 BP Systolic 104 mm[Hg] Amalia Patel [facility] Work Phone: 02-20-2017 14:14-0400 Height 167.64 cm Amalia Patel [facility] Work Phone: 02-20-2017 14:14-0400 Pulse (Heart Rate) 68 /min [facility] Work Phone: 02-20-2017 14:14-0400 Weight 82.56 kg [facility] Work Phone: 07-31-2016 13:18-0400 BMI (Body Mass Index) 29.11 kg/m2 Malgorzata Aaron RN [facility] Work Phone: 07-31-2016 13:18-0400 Body weight 81.83 kg Malgorzata Aaron RN [facility] Work Phone: 07-31-2016 13:18-0400 BP Diastolic 68 mm[Hg] Malgorzata Aaron RN [facility] Work Phone: 07-31-2016 13:18-0400 BP Systolic 112 mm[Hg] Malgorzata Aaron RN [facility] Work Phone: 07-31-2016 13:18-0400 BSA (Body Surface Area) 1.92 m2 Malgorzata Aaron RN [facility] Work Phone: 07-31-2016 13:18-0400 Pulse (Heart Rate) 68 /min Malgorzata Aaron RN [facility] Work Phone: 07-31-2016 13:18-0400 Respiratory Rate 20 /min Malgorzata Aaron RN [facility] Work Phone: 03-08-2016 10:40-0400 Heart rate 96 /min Malgorzata Aaron RN [facility] Work Phone: 10-06-2015 14:31-0500 Height 167.64 cm Malgorzata Aaron RN [facility] Work Phone: 07-19-2010 13:12-0400 Body Temperature 98.6 [degF] Malgorzata Aaron RN [facility] Work Phone: Encounters Encounter Date Encounter Type Care Provider Facility Start: 07-22-2025 [facility] Facility:[facility] Start: 05-12-2025 End: 05-12-2025 Follow-up encounter Lisa Clemente Work Phone: Hematology/Oncology Start: 05-08-2025 End: 06-08-2025 Telephone encounter Liza Ortiz MD Work Phone: Cardiology Comment on above: Patient Update Start: 05-08-2025 End: 05-08-2025 ambulatory [facility] Facility:[facility] Start: 05-08-2025 End: 05-08-2025 ambulatory [facility] Facility:[facility] Start: 04-29-2025 End: 05-01-2025 Telephone encounter Lisa Clemente Work Phone: Hematology/Oncology Comment on above: New Patient Start: 04-26-2025 End: 04-26-2025 Emergency department patient visit SELENA EUBANKS Facility:[facility] Start: 04-25-2025 End: 04-28-2025 Refill Ivanna Ren WOOD MECHANIST - HAND TRIMMER [facility] Comment on above: 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) Start: 04-24-2025 End: 04-24-2025 Refill Liza Ortiz MD Work Phone: Cardiology Comment on above: Refill Request Start: 04-23-2025 End: 04-23-2025 Evaluation and management of inpatient RAJAT PATEL Facility:[facility] Start: 04-21-2025 End: 04-21-2025 Evaluation and management of inpatient UNKNOWN PROVIDER Facility:[facility] Start: 04-18-2025 End: 04-23-2025 Evaluation and management of inpatient RANDI JONATHAN-IZAROUX Facility:[facility] Start: 04-18-2025 End: 04-18-2025 Emergency department patient visit RAJAT PATEL Facility:[facility] Start: 04-09-2025 End: 04-16-[address] 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 Rajat Patel MD Work Phone: [facility] Work Phone: Start: 01-01-2025 End: 01-01-[address] 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 Start: 11-19-2024 End: 11-19-2024 ambulatory RAJAT PATEL Facility:[facility] Start: 09-29-2024 End: 09-29-2024 Professional / ancillary services management Chloe Strong MD Work Phone: [facility] Start: 09-29-2024 End: 09-29-2024 ambulatory RAJAT PATEL Facility:[facility] Start: 09-29-2024 End: 09-29-2024 Follow-up encounter Chloe Strong MD Work Phone: [facility] Comment on above: Remote Pacemaker Fol low Up Start: 09-29-2024 End: 09-29-2024 Patient encounter procedure Rem Device Ck [facility] Start: 09-17-2024 End: 09-17-2024 ambulatory Sary Robledo Facility:[facility] Start: 09-17-2024 End: 09-17-2024 Discharged Recurring Sary Robledo KITCHEN SUPERVISOR-C -Physical Therapy Work Phone: Start: 09-15-2024 End: 09-15-2024 ambulatory LIZA ORTIZ Facility:[facility] Start: 08-31-2024 ambulatory MITCHELL VANESSA [facility] Start: 08-31-2024 End: 08-31-2024 Emergency department patient visit MITCHELL VANESSA [facility] Start: 08-22-2024 End: 08-22-2024 Refill Randijennifer Villa WOOD MECHANIST.HAND TRIMMER Work Phone: [facility] Comment on above: Refill Request Start: 08-12-2024 End: 08-12-2024 Office outpatient visit 40 minutes Ivanna Ren WOOD MECHANIST - HAND TRIMMER Work Phone: [facility] Comment on above: 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) (Primary Dx); Anger Start: 08-12-2024 End: 08-13-2024 ambulatory [employer] [facility] Start: 08-03-2024 End: 08-05-2024 Refill Ivanna Ren WOOD MECHANIST - HAND TRIMMER Work Phone: [facility] [place] Comment on above: Anger; 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) Start: 07-30-2024 End: 07-30-2024 ambulatory Sary [facility] Facility:[facility] Start: 07-03-2024 End: 07-08-2024 Telephone encounter Liza Ortiz MD Work Phone: Cardiology Comment on above: Patient Update; Resu lts Start: 06-25-2024 End: 07-14-2024 ambulatory Carmen Mak RN [facility] Start: 06-25-2024 End: 07-14-2024 Patient encounter procedure Carmen Mak RN [facility] Start: 06-16-2024 End: 06-16-2024 Professional / ancillary services management Chloe Strong MD Work Phone: [facility] Start: 06-16-2024 End: 06-16-2024 ambulatory RAJAT Mcgowan MAYBEURY Facility:[facility] Start: 06-16-2024 End: 06-16-2024 Follow-up encounter Chloe Strong MD Work Phone: [facility] Comment on above: Remote Pacemaker Fol low Up Start: 06-16-2024 End: 06-16-2024 Patient encounter procedure Rem Device Ck [facility] Start: 05-05-2024 End: 05-06-2024 ambulatory YEIMY VALLE [facility] Start: 04-29-2024 End: 04-29-2024 Office outpatient visit 15 minutes Ivanna Ren WOOD MECHANIST - HAND TRIMMER Work Phone: [facility] Geriatrics Comment on above: 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) (Primary Dx); Anger Start: 04-29-2024 End: 04-29-2024 Office outpatient visit 25 minutes Ivanna Ren WOOD MECHANIST - HAND TRIMMER Work Phone: [facility] Comment on above: 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) (Primary Dx); Anger Start: 04-29-2024 End: 04-29-2024 ambulatory IVANNA QVIVODesiree [facility] Start: 01-29-2024 End: 01-29-2024 Office outpatient visit 40 minutes Ivanna Ren WOOD MECHANIST - HAND TRIMMER Work Phone: [facility] Ger[facility] Comment on above: Moderate late onset Alzheimer's dementia without behavioral disturbance, psychotic disturbance, mood disturbance, or anxiety (HCC) (Primary Dx) Start: 01-23-2024 Telephone encounter Ivanna garza WOOD MECHANIST - HAND TRIMMER Work Phone: [facility] Comment on above: FYI Start: 01-07-2024 End: 01-07-2024 Patient encounter procedure Liza Ortiz MD Work Phone: Cardiology Comment on above: 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 (Primary Dx); Rheumatic mitral valve disease; Rheumatic aortic valve insufficiency; Permanent atrial fibrillation (HCC); H/O atrioventricular yessica ablation; Pulmonary HTN (HCC); Essential hypertension; Mixed hyperlipidemia Start: 12-31-2023 Follow-up encounter Chloe Strong MD Work Phone: [facility] Start: 12-31-2023 End: 12-31-2023 Patient encounter procedure Device Clinic 1 [facility] Start: 12-31-2023 End: 12-31-2023 ambulatory Device 1 [facility] Comment on above: Permanent Pacemaker Start: 12-10-2023 End: 12-10-2023 ambulatory Device 1 [facility] Comment on above: Permanent Pacemaker Start: 12-10-2023 Follow-up encounter Chloe Strong MD Work Phone: [facility] Start: 12-10-2023 End: 12-10-2023 Patient encounter procedure Device Clinic 1 [facility] Start: 11-20-2023 Follow-up encounter Chloe Strong MD Work Phone: [facility] Start: 11-20-2023 Patient encounter procedure Chloe Strong MD Work Phone: [facility] Start: 11-20-2023 Telephone encounter Do fishman APRN.HAND TRIMMER Work Phone: [facility] Comment on above: Appointment Start: 11-06-2023 Telephone encounter Randi Villa APRNRubénHAND TRIMMER Work Phone: [facility] [place] Comment on above: Results Start: 09-07-[address] Rajat Patel Work Phone: [facility] Work Phone: Start: 09-05-2023 End: 09-05-[address] Rajat Patel Work Phone: [facility] Work Phone: Start: 09-05-2023 End: 09-05-[address] Rajat Patel Work Phone: [facility] Work Phone: Start: 08-27-2023 Telephone encounter Randi Villa APRN.HAND TRIMMER Work Phone: [facility] [place] Start: 08-20-2023 End: 08-20-[address] Rajat Patel Work Phone: [facility] Work Phone: Start: 08-20-2023 End: 08-20-[address] Rajat Patel Work Phone: [facility] Work Phone: Start: 08-17-2023 [facility] Start: 08-16-2023 End: 08-16-[address] Rajat Patel Work Phone: [facility] Work Phone: Start: 08-06-2023 Telephone encounter Randi Villa APRN.HAND TRIMMER Work Phone: Cardiology Comment on above: Orders Start: 08-06-2023 End: 08-06-[address] Rajat Patel Work Phone: [facility] Work Phone: Start: 08-06-2023 End: 08-06-2023 Patient encounter procedure Ekg Card Admin [facility] Work Phone: Cardiology Comment on above: PAF (paroxysmal atri al fibrillation) (HCC) (Primary Dx) Start: 08-01-2023 End: 08-30-[address] Rajat Patel Work Phone: [facility] Work Phone: Start: 08-01-2023 End: 08-30-[address] Rajat Patel Work Phone: [facility] Work Phone: Start: 08-01-[address] Rajat Patel Work Phone: [facility] Work Phone: Start: 07-31-2023 End: 07-31-2023 Office outpatient visit 25 minutes Ivanna Ren APRN - HAND TRIMMER Work Phone: [facility] Geriatrics Comment on above: Moderate late onset Alzheimer's dementia without behavioral disturbance, psychotic disturbance, mood disturbance, or anxiety (HCC) (Primary Dx) Start: 07-19-2023 End: 07-19-2023 Patient encounter procedure No Primary Care Physician [facility] Work Phone: Start: 07-11-2023 End: 07-11-2023 ambulatory No Primary Care Physician [facility] Work Phone: Start: 07-11-2023 End: 07-11-2023 Patient encounter procedure No Primary Care Physician [facility] Work Phone: Start: 07-09-2023 End: 07-09-2023 Patient encounter procedure No Primary Care Physician [facility] Work Phone: Start: 07-06-2023 Telephone encounter Randi Villa APRN.HAND TRIMMER Work Phone: Cardiology Comment on above: Orders; Appointment Start: 07-06-2023 End: 07-06-2023 Patient encounter procedure Randi Villa APRN.HAND TRIMMER Work Phone: [facility] [place] Comment on above: 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 (Primary Dx); Primary hypertension; Mixed hyperlipidemia; Rheumatic mitral valve disease; Chronic atrial fibrillation (HCC); Type 2 diabetes mellitus without complication, with long-term current use of insulin (HCC) Start: 07-02-2023 End: 07-31-2023 ambulatory No Primary Care Physician [facility] Work Phone: Start: 07-02-2023 End: 07-31-2023 Discharged Recurring No Primary Care Physician [facility] Work Phone: Start: 07-02-2023 Registered Recurring No Primar y Care Physician [facility] Work Phone: Start: 06-22-2023 End: 06-22-2023 Patient encounter procedure No Primary Care Physician [facility] Work Phone: Start: 06-20-2023 End: 06-20-2023 Emergency department patient visit No Primary Care Physician [facility] Work Phone: Start: 06-19-2023 End: 06-19-2023 ambulatory No Primary Care Physician [facility] Work Phone: Start: 06-19-2023 End: 06-19-2023 Patient encounter procedure No Primary Care Physician [facility] Work Phone: Start: 06-05-2023 Telephone encounter Liza Ortiz MD Work Phone: Cardiology Comment on above: Erroneous encounter- disregard Appointment Start: 05-31-2023 Telephone encounter Ivanna garza WOOD MECHANIST - HAND TRIMMER Work Phone: [facility] Geriatrics Comment on above: Appointment (Patient needs to cancel appt with Ivanna ) Start: 05-28-2023 End: 05-29-2023 Emergency department patient visit No Primary Care Physician [facility] Work Phone: Start: 05-25-2023 End: 05-25-2023 ambulatory No Primary Care Physician [facility] Work Phone: Start: 05-25-2023 End: 05-25-2023 Patient encounter procedure No Primary Care Physician [facility] Work Phone: Start: 05-24-2023 End: 05-24-2023 Admission to same day surgery center No Primary Care Physician [facility]-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 Work Phone: Start: 05-04-2023 Orders Only Ivanna LARIOS RN - HAND TRIMMER Work Phone: [facility] Geriatrics Comment on above: Memory loss (Primary Dx) Start: 04-24-2023 End: 04-24-2023 Office outpatient new 60 minutes Ivanna Ren MAHAMED - HAND TRIMMER Work Phone: [facility] Comment on above: Memory loss (Primary Dx); Insomnia, unspecified type Start: 04-13-2023 Non-patient / Non-visit No Kristy bucio Care Physician [facility] Start: 04-12-2023 End: 04-12-2023 ambulatory No Primary Care Physician [facility] Work Phone: Start: 04-12-2023 End: 04-12-2023 Patient encounter procedure No Primary Care Physician [facility] Work Phone: Start: 04-12-2023 Non-patient / Non-visit No Kristy [facility] Physician [facility] Start: 04-09-2023 ambulatory SHARON PHILOMENA Facility:[facility] Start: 04-09-2023 End: 04-09-2023 Patient encounter procedure No Primary Care Physician [facility] Work Phone: Start: 03-26-2023 Telephone encounter Sanam Richardson DO Work Phone: [facility] Clinical Communication Comment on above: Appointment Request Start: 03-25-2023 End: 03-25-2023 ambulatory No Primary Care Physician [facility] Work Phone: Start: 03-25-2023 End: 03-25-2023 Patient encounter procedure No Primary Care Physician [facility] Services Start: 03-25-2023 Non-patient / Non-visit No Kristy bucio Care Physician [facility] Inpatient Physicians Start: 03-24-2023 Non-patient / Non-visit No Kristy bucio Care Physician [facility] Start: 03-24-2023 Non-patient / Non-visit No Kristy bucio [facility] Physician [facility] Start: 03-23-2023 Non-patient / Non-visit No Kristy rupinder Care Physician [facility] Start: 03-23-2023 Non-patient / Non-visit No Kristy Pradhan Physician [facility] Start: 03-22-2023 Non-patient / Non-visit No Kristy Pradhan Physician [facility] Start: 03-22-2023 Non-patient / Non-visit No Kristy Pradhan Physician [facility] Start: 03-21-2023 Non-patient / Non-visit No Kristy Pradhan Physician [facility] Start: 03-21-2023 Non-patient / Non-visit No Kristy Pradhan Physician [facility] Start: 03-20-2023 Non-patient / Non-visit No Kristy Pradhan Physician [facility] Start: 03-20-2023 Non-patient / Non-visit No Kristy Pradhan Physician [facility] Start: 03-19-2023 Non-patient / Non-visit No Kristy Pradhan Physician [facility] Start: 03-19-2023 End: 03-25-2023 Evaluation and management of inpatient [facility] Procedures Date Procedure Procedure Detail Performing Clinician Start: 02-10-2025 Adult depression scr eening assessment Ivanna Ren WOOD MECHANIST - HAND TRIMMER Work Phone: Start: 11-19-2024 Ecg routine ecg w/le ast 12 lds w/i&r Chloe Strong MD Work Phone: Start: 11-19-2024 PACEMAKER CLINIC CHECK Chloe Strong MD Work Phone: Start: 09-29-2024 PACEMAKER REMOTE CHECK Chloe Strong MD Work Phone: Start: 08-12-2024 Adult depression scr eening assessment Ivanna Ren WOOD MECHANIST - HAND TRIMMER Work Phone: Start: 06-16-2024 PACEMAKER REMOTE CHECK Chloe Strong MD Work Phone: Start: 01-29-2024 Adult depression scr eening assessment Ivanna Mikal WOOD MECHANIST - HAND TRIMMER Work Phone: Start: 12-31-2023 PACEMAKER CLINIC CHECK Chloe Strong MD Work Phone: Start: 12-10-2023 PACEMAKER CLINIC CHECK Chloe Strong MD Work Phone: Start: 11-20-2023 PACEMAKER CLINIC CHECK Chloe Strong MD Work Phone: Start: 06-20-2023 Plain chest X-ray No Pr imary Care Physician Start: 05-28-2023 Plain chest X-ray No Pr imary Care Physician Start: 04-24-2023 Adult depression scr eening assessment Ivanna Maribellarabella WOOD MECHANIST - HAND TRIMMER Work Phone: Start: 04-12-2023 Cardiovascular stres s [...] months Terri Bennett Start: 02-20-2017 End: 08-29-2017 MMM Mike Joiner MD Start: 02-20-2017 End: 03-21-2017 Nuclear stress test -exercise Mike Joiner MD Start: 07-31-2016 End: 07-31-2016 Documentation of current medications Malgorzata Aaron RN Start: 07-31-2016 End: 07-31-2016 HEAT TREAT SUPERVISOR Jazmin Zhou PA-C Work Phone: Start: 07-31-2016 End: 07-31-2016 Follow Up Appt 6 months Jazmin kwok PA-C Work Phone: Start: 05-02-2016 End: 05-02-2016 Follow Up Appt 3 months Terri Bennett Start: 05-02-2016 End: 05-02-2016 MAGDALENO Joiner MD Start: 03-13-2016 End: 03-14-[address] magistrate Mike Joiner MD Start: 03-08-2016 End: 03-08-2016 [...] months Terri Bennett Start: 11-09-2015 End: 11-09-2015 MMM Mike Joiner MD Start: 10-19-2015 End: 11-02-2015 Cardioversion [...] echocardiogram (GISELE) Mike Joiner MD Start: 11-30-2014 [facility] Liza young MD Work Phone: History of placement of stent for coronary artery disease History of coronary artery stent placement No Primary Care Physician Comment on above: S/P stenting to prox imal LAD 2.75 x 22 mm [place] RYAN and distal RCA 2.75 x 22 mm [place] R[place]AN on 06/01/2023 at [facility]; Urine culture No Primary Car e Physician Plan of Treatment Date Care Activity Detail Author Start: 08-31-2034 DTaP/Tdap/Td Vaccine s (4 - Td or Tdap) DTaP/Tdap/Td Vaccines (4 - Td or Tdap) [facility] Start: 08-31-2034 Urine microalbumin profile DTaP,Tdap,Td Vaccine (4 - Td or Tdap) [facility] Start: 03-04-2029 DTaP/Tdap/Td Vaccine s (3 - Td or Tdap) DTaP/Tdap/Td Vaccines (3 - Td or Tdap) [facility] Start: 03-04-2029 Urine microalbumin profile DTaP,Tdap,Td Vaccine (3 - Td or Tdap) [facility] Start: 05-08-2026 Complete blood count Hemoglobin/Vu tocrit [facility] Start: 05-08-2026 Creatinine measurement Serum Creatin ine [facility] Start: 08-08-2026 Hepatitis B surface antibody level LDL Cholesterol [facility] Start: 04-23-2026 Complete blood count Hemoglobin/Vu tocrit [facility] Start: 04-23-2026 Creatinine measurement Serum Creatin ine [facility] Start: 04-23-2026 Diabetes: Estimated Glomerular Filtration Rate for Kidney Health Diabetes: Estimated Glomerular Filtration Rate for Kidney Health [facility] Start: 02-10-2026 Depression Screening Depression Scre gustabo [facility] Start: 11-19-2025 BP Controlled (<130/80) BP Controlle d (<130/80) [facility] Start: 11-18-2025 End: 11-18-2025 Patient encounter procedure 11/18/2025 11:40 AM EST Office Visit [facility] [place] [address] [place], [place] [phone] Chloe Strong MD [address] [facility] [address] [place] [id number] 1 year follow up [facility] [place] Comment on above: 1 year follow up Start: 10-19-2025 Hemoglobin A1c measurement HbA1C [facility] Start: 09-15-2025 BP Controlled (<130/80) BP Controlle d (<130/80) [facility] Start: 08-12-2025 Depression Screening Depression Scre [facility] Start: 08-11-2025 End: 08-11-2025 Patient encounter procedure 08/11/2025 11:00 AM EST Office Visit [facility] [place] [address] [place] [phone] Ivanna Ren, MAHAMED - HAND TRIMMER [address] [place] [address] [facility] Start: 06-01-2025 Influenza vaccination Influenza Vacc ine (#1) [facility] Start: 05-08-2025 End: 05-08-2025 ambulatory 05/08/2025 10:30 AM EDT Visit (SP) Office Hematology/Oncology [address] [place] [address] Lisa Clemente [address] [place] [address] KITCHEN SUPERVISOR/DX:Iron Deficiency AnemiaReferring/Dr.Micha josh Santiago*1st available Hematology/Oncology Comment on above: KITCHEN SUPERVISOR/DX:Iron Deficienc y AnemiaReferring/Dr.Michael Santiago*1st available Start: 02-18-2025 End: 02-18-2025 Patient encounter procedure 02/18/2025 8:00 AM EDT Procedure [facility] [place] [address] PM/SV [facility] Comment on above: PM/SV Start: 02-10-2025 End: 02-10-2025 Patient encounter procedure 02/10/2025 11:00 AM EDT [facility] [address] [place] [phone] Ivanna Ren, WOOD MECHANIST - HAND TRIMMER [address] [address] [facility] Start: 01-28-2025 Depression Screening Depression Scre [facility] Start: 01-27-2025 End: 01-27-2025 Patient encounter procedure 01/27/2025 8:00 AM EDT Procedure [facility] [place] [address] PM/SV [facility] Comment on above: PM/SV Start: 01-06-2025 BP Controlled (<130/80) BP Controlle d (<130/80) [facility] Start: 11-19-2024 Diabetes: Estimated Glomerular Filtration Rate for Kidney Health Diabetes: Estimated Glomerular Filtration Rate for Kidney Health [facility] Start: 11-19-2024 End: 11-19-2024 Patient encounter procedure [facility] Comment on above: mdtpm/sv/persafib/sv appt to follow at 1040 1 year follow up s/p micra implant Start: 10-01-2024 Advance Directive Discussion Advance Directive Discussion [facility] Start: 09-29-2024 End: 09-29-2024 Patient encounter procedure [facility] Comment on above: PM/SV PM/SV - MANUAL TRANS [place]. Per dtr -please mail letters for ALL appts. cm Start: 09-15-2024 End: 09-15-2024 Patient encounter procedure 09/15/2024 2:20 PM EST Office Visit Cardiology [address] [place] [phone] Liza Ortiz MD [address] [place], [place] [phone] 6 mo follow up Cardiology Comment on above: 6 mo follow up Start: 08-12-2024 End: 08-12-2024 Patient encounter procedure [facility] Start: 07-06-2024 BP Controlled (<130/80) BP Controlle d (<130/80) [facility] Start: 06-01-2024 Covid-19 Vaccine ( season) Covid-19 Vaccine ( season) [facility] Start: 06-01-2024 Covid-19 Vaccine ( season) Covid-19 Vaccine ( season) [facility] Start: 06-01-2024 [facility] Start: 05-29-2024 Hepatitis B surface antibody level LDL CHOLESTEROL [facility] Start: 04-29-2024 End: 04-29-2024 Patient encounter procedure 04/29/2024 10:45 AM EDT Office Visit [facility] [address] [place] [phone] Ivanna Ren, MAHAMED - HAND TRIMMER [address] [place] [address] [facility] Start: 04-24-2024 Depression Screening Depression [facility] Start: 04-07-2024 End: 12-30-2024 CBC panel - Blood by Automated count CBC Lab Routine Coronary artery disease involving port lions coronary artery of port lions heart without angina pectoris Expected: 04/07/2024, Expires: 12/30/2024 [facility] Work Phone: Comment on above: Expected: 04/07/2024 , Expires: 12/30/2024 Start: 04-07-2024 End: 12-30-2024 Comprehensive metabolic 2000 panel - Serum or Plasma COMP METABOLIC PANEL Lab Routine Coronary artery disease involving port lions coronary artery of port lions heart without angina pectoris Mixed hyperlipidemia Expected: 04/07/2024, Expires: 12/30/2024 [facility] Work Phone: Comment on above: Expected: 04/07/2024 , Expires: 12/30/2024 Start: 04-07-2024 End: 12-30-2024 Lipid 1996 panel - Serum or Plasma LIPID PANEL BASIC Lab Routine Mixed hyperlipidemia Expected: 04/07/2024, Expires: 12/30/2024 [facility] Work Phone: Comment on above: Expected: 04/07/2024 , Expires: 12/30/2024 Start: 01-29-2024 End: 01-29-2024 Patient encounter procedure 01/29/2024 1:45 PM EDT Office Visit [facility] [address] [place] [phone] Ivanna Ren, WOOD MECHANIST - HAND TRIMMER [address] [address] [facility] Start: 10-01-2023 Advance Directive Discussion Advance Directive Discussion [facility] Start: 10-01-2023 Behavioral Health Screening Behavioral Health Screening [facility] Start: 10-01-2023 Depression Assessment Depression Ass essment [facility] Start: 2023 RSV Immunization for Adults (1 - 1-dose 75+ series) RSV Immunization for Adults (1 - 1-dose 75+ series) [facility] Start: 2023 RSV Vaccine (1 - 1-d ose 75+ series) RSV Vaccine (1 - 1-dose 75+ series) [facility] Start: 06-19-2023 [facility] Start: 06-19-2023 Patient referral to dietitian [facility] Start: 06-01-2023 Covid-19 Vaccine () Covid-19 Vaccine () [facility] Start: 06-01-2023 Influenza vaccination [facility] Start: 05-28-2023 [facility] Start: 05-24-2023 Patient discharge [facility] Start: 05-22-2023 End: 05-22-2023 Patient encounter procedure 05/22/2023 9:45 AM EDT Office Visit [facility] [phone] Ivanna Ren WOOD MECHANIST - HAND TRIMMER [address] [address] [facility] Start: 05-04-2023 End: 05-04-2024 Cobalamin (Vitamin B12) [Mass/volume] in Serum or Plasma Vitamin B12 Lab Routine Memory loss Expected: 05/04/2023 (Approximate), Expires: 05/04/2024 [facility] Comment on above: Expected: 05/04/2023 (Approximate), Expires: 05/04/2024 Start: 05-04-2023 End: 05-04-2024 Folate [Mass/volume] in Serum or Plasma Folate Lab Routine Memory loss Expected: 05/04/2023 (Approximate), Expires: 05/04/2024 [facility] Work Phone: Comment on above: Expected: 05/04/2023 (Approximate), Expires: 05/04/2024 Start: 04-24-2023 End: 04-24-2023 Patient encounter procedure 04/24/2023 10:45 AM EDT Office Visit [facility] [address] [place] [phone] Ivanna Ren WOOD MECHANIST - HAND TRIMMER [address] [address] [facility] Start: 04-09-[address] [facility] Work Phone: Start: 03-25-2023 Patient discharge [facility] Start: 03-24-2023 Telepractice consultation [facility] Start: 03-24-2023 [facility] Start: 03-23-2023 Care planning and pr oblem solving actions [facility] Start: 03-23-2023 Care planning and pr oblem solving actions [facility] Start: 03-21-2023 Care planning and pr oblem solving actions [facility] Start: 03-21-2023 Care planning and pr oblem solving actions [facility] Start: 03-20-2023 Introduction of urin galilea catheter [facility] Start: 03-20-2023 Oxygen therapy [facility] Start: 03-20-2023 Referral to occupati onal therapist [facility] Start: 03-20-2023 Referral to service [facility] Start: 03-20-2023 [facility] Start: 03-20-2023 Blood chemistry [facility] Start: 03-20-2023 Thyroid stimulating hormone measurement [facility] Start: 03-20-2023 [facility] Start: 03-19-2023 Following clinical pathway protocol [facility] Start: 03-19-2023 Application of intermittent pneumatic compression device [facility] Start: 03-19-2023 Assessment of risk o f venous thromboembolism [facility] Start: 03-19-2023 Cardiac monitoring [facility] Start: 03-19-2023 Care regimes management [facility] Start: 03-19-2023 Continuous pulse oximetry [facility] Start: 03-19-2023 Insertion of cathete r into peripheral vein [facility] Start: 03-19-2023 Measuring intake and output [facility] Start: 03-19-2023 Notification of physician [facility] Start: 03-19-2023 Patient referral to dietitian [facility] Start: 03-19-2023 Providing care accor ding to standard [facility] Start: 03-19-[address] [facility] Start: 03-19-2023 Vital signs measurements [facility] Start: 03-19-2023 [facility] Start: 03-19-2023 Troponin I measurement [facility] Start: 03-19-2023 Verification routine [facility] Start: 03-19-2023 Admission procedure [facility] Start: 10-01-2022 ADVANCE DIRECTIVE DISCUSSION ADVANCE DIRECTIVE DISCUSSION [facility] Start: 10-01-2022 DEPRESSION ASSESSMENT DEPRESSION ASS ESSMENT [facility] Start: 03-27-2018 Colonoscopy COLONOSCOPY [facility] Start: 03-27-2018 COLORECTAL CANCER SCREENING COLORECTAL CANCER SCREENING [facility] Start: 03-27-2018 Screening for malign ant neoplasm of colon [facility] Start: 09-04-2017 End: 09-04-2017 Appointment Appointment [facility] Work Phone: Start: 09-04-2017 End: 09-04-2017 Appointment Appointment [facility] Work Phone: Start: 07-26-2017 Pneumococcal Vaccine : 50+ Years (2 of 2 - PPSV23) Pneumococcal Vaccine: 50+ Years (2 of 2 - PPSV23) [facility] Start: 07-26-2017 Pneumococcal Vaccine : 65+ Years (2 of 2 - PPSV23 or PCV20) Pneumococcal Vaccine: 65+ Years (2 of 2 - PPSV23 or PCV20) [facility] [employer] Start: 02-20-2017 End: 02-20-2017 Appointment Appointment [facility] Work Phone: Start: 02-20-2017 End: 02-20-2017 Echocardiography Echocardiogram (complete) [facility] Work Phone: Start: 02-20-2017 End: 03-21-2017 Electrocardiogram, complete EKG (In office) [facility] [employer] Work Phone: Start: 02-20-2017 End: 08-29-2017 Follow Up Appt 6 months Follow Up Appt 6 months [facility] [employer] Work Phone: Start: 02-20-2017 End: 08-29-2017 MMM MMM [facility] Work Phone: Start: 02-20-2017 End: 02-20-2017 Nuclear stress test -exercise Nuclear stress test -exercise [facility] [employer] Work Phone: Start: 09-20-2016 Pneumococcal Vaccine : 50+ (2 of 2 - PPSV23) Pneumococcal Vaccine: 50+ (2 of 2 - PPSV23) [facility] Start: 09-20-2016 Pneumococcal Vaccine : 50+ (2 of 2 - PPSV23, PCV20, or PCV21) Pneumococcal Vaccine: 50+ (2 of 2 - PPSV23, PCV20, or PCV21) [facility] Start: 09-20-2016 Pneumococcal Vaccine : 65+ (2 - PPSV23 or PCV20) Pneumococcal Vaccine: 65+ (2 - PPSV23 or PCV20) [facility] Start: 09-20-2016 Pneumococcal Vaccine : 65+ (2 of 2 - PPSV23 or PCV20) Pneumococcal Vaccine: 65+ (2 of 2 - PPSV23 or PCV20) [facility] Start: 07-31-2016 End: 07-31-2016 HEAT TREAT SUPERVISOR HEAT TREAT SUPERVISOR [facility] Work Phone: Start: 07-31-2016 End: 07-31-2016 Follow Up Appt 6 months Follow Up Appt 6 months [facility] [employer] Work Phone: Start: 07-20-2016 DTaP/Tdap/Td Vaccine s (2 - Td or Tdap) DTaP/Tdap/Td Vaccines (2 - Td or Tdap) [facility] [employer] Start: 07-20-2016 Urine microalbumin profile [facility] Start: 05-02-2016 End: 05-02-2016 Follow Up Appt 3 months Follow Up Appt 3 months [facility] Work Phone: Start: 05-02-2016 End: 05-02-2016 MMM MMM [facility] Work Phone: Start: 03-13-2016 End: 03-13-2016 Cardiac Referral Cardiac Referral [facility], [address], [place], [address] [facility] Work Phone: Start: 03-08-2016 End: 03-08-2016 Electrocardiogram, complete EKG (In office) [facility] Work Phone: Start: 03-08-2016 End: 03-08-2016 Follow Up Appt Other Follow Up Appt Other [facility] Work Phone: Start: 12-01-2015 Mammography [facility] Start: 11-24-2015 3 comp foot exam completed DIABETIC FOOT EXAM [facility] Start: 11-24-2015 Diabetic foot examination Diabetic F oot Exam [facility] Start: 11-09-2015 End: 11-09-2015 Electrocardiogram, complete EKG (In office) [facility] Work Phone: Start: 11-09-2015 End: 11-09-2015 Follow Up Appt 4 months Follow Up Appt 4 months [facility] Work Phone: Start: 11-09-2015 End: 11-09-2015 MMM MMM [facility] Work Phone: Start: 10-19-2015 End: 10-19-2015 Cardioversion Cardioversion [facility] Work Phone: Start: 10-19-2015 End: 10-19-2015 Electrocardiogram, complete EKG (In office) [facility] Work Phone: Start: 10-17-2015 Hemoglobin A1c measurement HbA1C [facility] Start: 10-17-2015 Hemoglobin A1c/Hemoglobin.total in Blood HBA1C [facility] Start: 10-06-2015 End: 10-26-2015 *BMP *BMP [facility] Work Phone: Start: 10-06-2015 End: 10-07-2015 Cardioversion Cardioversion [facility] Work Phone: Start: 10-06-2015 End: 10-19-2015 Electrocardiogram, complete EKG (In office) [facility] Work Phone: Start: 10-06-2015 End: 02-16-2016 Follow Up Appt 6 weeks Follow Up Appt 6 weeks [facility] Work Phone: Start: 10-06-2015 End: 02-16-2016 MMM MMM [facility] Work Phone: Start: 10-06-2015 End: 10-07-2015 Transesophageal echocardiogram (GISELE) Transesophageal echocardiogram (GISELE) [facility] Work Phone: Start: 03-23-2015 Hepatitis B screening URINE AL BUMIN:CREATININE RATIO [facility] Start: 06-23-2014 SHINGRIX VACCINE (2 of 3) FARRAR GRIX VACCINE (2 of 3) [facility] Start: 06-23-2014 Zoster Vaccines (2 of 3) Zoster Vacc violet (2 of 3) [facility] Start: 2013 Pneumococcal Vaccine : 65+ Years (1 - PCV) Pneumococcal Vaccine: 65+ Years (1 - PCV) [facility] Start: 2013 Pneumococcal Vaccine : 65+ Years (1 of 1 - PCV) Pneumococcal Vaccine: 65+ Years (1 of 1 - PCV) [facility] Start: 08-01-2013 Medicare Annual Well ness Visit Medicare Annual Wellness Visit [facility] Start: 2008 Hepatitis B Vaccine (1 of 3 - Risk 3-dose series) Hepatitis B Vaccine (1 of 3 - Risk 3-dose series) [facility] Start: 2008 Hepatitis B Vaccines (1 of 3 - Risk 3-dose series) Hepatitis B Vaccines (1 of 3 - Risk 3-dose series) [facility] Start: 2008 RSV Immunization age d 60 or older (1 - 1-dose 60+ series) RSV Immunization aged 60 or older (1 - 1-dose 60+ series) [facility] Start: 2008 RSV Vaccine (1 - 1-d ose 60+ series) RSV Vaccine (1 - 1-dose 60+ series) [facility] Start: 1998 Zoster Vaccines (1 of 2) Zoster Vacc violet (1 of 2) [facility] Start: 1993 COLOGUARD (FIT-DNA) COLOGUARD (FIT-D NA) [facility] Start: [address] COLONOGRAPHY [facility] Start: 1993 FECAL OCCULT BLOOD FECAL OCCULT BLOO D [facility] Start: 1993 Screening for malign ant neoplasm of colon [facility] Start: 1993 SIGMOIDOSCOPY SIGMOIDOSCOPY [facility] Start: 1988 Screening for malign ant neoplasm of breast Mammogram [facility] Start: 1967 DTaP/Tdap/Td Vaccine s (1 - Tdap) DTaP/Tdap/Td Vaccines (1 - Tdap) [facility] Start: 1966 ANNUAL PCP TEAM INTELLIGENCE APPLICATIONS TOVA DISEASE VISIT ANNUAL PCP TEAM CHRONIC DISEASE VISIT [facility] Start: 1966 Anxiety Screening Anxiety Screening [facility] Start: 1966 BP CONTROLLED (<130/80) BP CONTROLLE D (<130/80) [facility] Start: 1966 Depression Screening Depression Scre ening [facility] Start: 1966 Diabetes: Estimated Glomerular Filtration Rate for Kidney [facility] Diabetes: Estimated Glomerular Filtration Rate for Kidney Health [facility] Start: 1966 Diabetes: Urine Albumin-Creatinine Ratio for Kidney Health Diabetes: Urine Albumin-Creatinine Ratio for Kidney Health [facility] Start: 1966 Hepatitis C screening Hepatitis C [facility] [facility] Start: 1966 HEPATITIS C SCREENING HEPATITIS C [facility] Start: 1960 Depression Screening Depression Scre ening [facility] Start: 1958 Diabetic foot examination Diabetes: Foot Exam [facility] Start: 1958 Glaucoma screening [facility] Start: 1958 Hepatitis C antibody , confirmatory test DILATED RETINAL EXAM [facility] Start: 1958 Preventive dental service Diabetes: Dental Exam [facility] Start: 1954 Pneumococcal Vaccine : 65+ (1 - PCV) Pneumococcal Vaccine: 65+ (1 - PCV) [facility] Start: 1954 PNEUMOCOCCAL: 65+ (1 - PCV) PNEUMOCOCCAL: 65+ (1 - PCV) [facility] Start: 02-25-1949 COVID-19 Vaccine (#1) COVID-19 Vacci ne (#1) [facility] Start: 1948 Creatinine measurement Creatinine Le tonya [facility] Start: 1948 Echocardiography Echocardiogram [facility] Start: 1948 Hemoglobin A1c measurement Diabetes: Hemoglobin A1C [facility] Start: 1948 Lipid panel Lipid Panel [facility] Start: 1948 Medicare Annual Well ness (AWV) Medicare Annual Wellness (AWV) [facility] Start: 1948 Potassium measurement Potassium Leve l [facility] Start: 1948 Screening for malign ant neoplasm of colon [facility] Start: 1948 Screening for osteoporosis Bone Density Scan [facility] Start: 1948 Thyroid stimulating hormone measurement TSH Level [facility] Ambulatory ECG [facility] BUN/Creatinine ratio [facility] Calcium [Mass/volume ] in Serum or Plasma [facility] Carbon dioxide, tota l [Moles/volume] in Serum or Plasma [facility] Catheterization of l eft heart [facility] Chloride [Moles/volu me] in Serum or Plasma [facility] Creatinine [Moles/vo lume] in Serum or Plasma [facility] Glucose [Mass/volume ] in Serum or Plasma [facility] Hematocrit [Volume Fraction] of Blood [facility] Hemoglobin [Mass/vol ume] in Blood [facility] Leukocytes [#/volume ] in Blood [facility] Magnesium [Mass/volu me] in Serum or Plasma [facility] Mean corpuscular hemoglobin concentration determination [facility] Mean corpuscular hemoglobin determination [facility] Measurement of renal function [facility] Neutrophil count [facility] Neutrophil percent differential count [facility] OUTSIDE VENDOR CARDI AC OUTPATIENT EXTENDED RHYTHM RECORDING (WITHOUT TELEMETRY) OUTSIDE VENDOR CARDIAC OUTPATIENT EXTENDED RHYTHM RECORDING (WITHOUT TELEMETRY) Holter Routine PAF (paroxysmal atrial fibrillation) (HCC) Ordered: 07/06/2023 [facility] Work Phone: Comment on above: Ordered: 07/06/2023 OUTSIDE VENDOR CARDI AC OUTPATIENT EXTENDED RHYTHM RECORDING (WITHOUT TELEMETRY) OUTSIDE VENDOR CARDIAC OUTPATIENT EXTENDED RHYTHM RECORDING (WITHOUT TELEMETRY) Holter Routine Permanent atrial fibrillation (HCC) Ordered: 08/06/2023 [facility] Work Phone: Comment on above: Ordered: 08/06/2023 Partial thromboplast in time, activated [facility] Patient Education ED AFIB [facility] Work Phone: Patient referral [facility] Work Phone: Platelets [#/volume] in Blood [facility] Potassium [Moles/vol ume] in Serum or Plasma [facility] Prothrombin time [facility] Red blood cell count [facility] Red cell distributio n width determination [facility] Sodium [Moles/volume ] in Serum or Plasma [facility] Urea nitrogen [Mass/volume] in Serum or Plasma [facility] Immunizations Immunization Date Immunization Notes Care Provider Jaren altman 08-04-2024 influenza virus vaccine, unspecified formulation Lzia Ortiz MD Work Phone: [facility] 07-25-2018 influenza virus vaccine, unspecified formulation Randi Villa WOOD MECHANIST.HAND TRIMMER Work Phone: [facility] 08-10-2015 influenza, injectabl e, quadrivalent, preservative free No Primary Care Physician [facility] 08-10-2015 influenza, seasonal, injectable [facility] 08-10-2015 influenza virus vaccine, unspecified formulation Ivanna Ren WOOD MECHANIST - HAND TRIMMER Work Phone: [facility] 07-28-2014 influenza, seasonal, injectable Liza Ortiz MD Work Phone: [facility] Work Phone: 07-28-2014 influenza virus vaccine, unspecified formulation Liza Ortiz MD Work Phone: [facility] 04-28-2014 zoster vaccine, live Liza snider MD Work Phone: [facility] 08-10-2008 influenza virus vaccine, unspecified formulation Liza Ortiz MD Work Phone: [facility] 07-20-2006 influenza virus vaccine, unspecified formulation Liza Ortiz MD Work Phone: [facility] 07-20-2006 tetanus toxoid, redu ragini diphtheria toxoid, and acellular pertussis vaccine, adsorbed Liza Ortiz MD Work Phone: [facility] Payers Date Payer Category Payer [facility] care--Care provided to [facility] [id number] 2024 Self-pay [id number] 2024 Medicaid [id number] 2024 Medicaid [id number] 2023 Government (not [facility] or Medicaid) [facility] [id number] 2023 Unknown [id number] 2021 Medicare supplementa l policy (as second payer) MMO MEDICARE SUPPLEMENT [id number] 2021 Private Health Insurance MMO MED ICARE SUPPLEMENT [id number] 2021 Unknown [id number] 2018 Unknown [id number] 2013 Medicare [id number] 2013 Medicare [id number] 1948 Unknown [id number] 1948 Unknown [id number] 1948 Unknown [id number] .[id number] 1948 Unknown [id number] .[id number] 1948 Unknown [id number] .[id number] 1948 Unknown [id number] .[id number] 1948 Unknown [id number] 1948 Unknown [id number] Unknown COMMERCIAL OTHER [id number] Unknown [id number] Unknown [id number] Unknown [id number] Unknown [id number] Unknown [id number] Social History Date Type Detail Facility Start: 03-19-2023 End: 08-16-2023 Tobacco smoking status IAIS Unknown if ever smoked [facility] Start: 08-10-2015 None [facility] Start: 08-10-2015 Spouse/ Signif icant Other [facility] Start: 08-10-2015 Non-smoker [facility] Start: 1950 Sex Assigned At Female [facility] Start: 1950 Sex Assigned At Not on file [facility] Start: 04-24-2023 End: 07-06-2023 Gender identity Not on file [facility] Start: 04-24-2023 Tobacco smoking status [facility] Never smoked tobacco [facility] Start: 04-24-2023 End: 09-15-2024 Tobacco use and exposure Smokeless tobacco non-user [facility] Start: 04-24-2023 End: 02-10-2025 Alcohol intake Lifetime non-drinker (finding) [facility] Start: 04-24-2023 End: 07-06-2023 History of Social function [facility] Start: 04-14-2023 End: 04-24-2023 Exposure to SARS-CoV-2 (event) Not sure [facility] Start: 03-27-2016 End: 09-15-2024 Tobacco smoking status NHIS Ex-smoker [facility] Start: 10-01-1974 End: 10-01-1989 History of tobacco use Current smoker [facility] Start: 10-01-1974 End: 10-01-1989 History of tobacco use Cigarette Smoker [facility] Start: 05-29-2023 End: 05-08-2025 Alcohol intake Current drinker of alcohol (finding) [facility] Start: 09-01-2012 How hard is it for you to pay for the very basics like food, housing, medical care, and heating Not hard at all [facility] (I/We) worried whether (my/our) food would run out before (I/we) got money to buy more. Never true [facility] In the past 12 months, was there a time when you were not able to pay the mortgage or rent on time? No [facility] Start: 03-26-2023 End: 01-07-2025 Sex Female (finding) [facility] Medical Equipment Procedure Code Equipment Code Equipment Origin al Text Equipment Identifier Dates [id number] Start: 01-05-2023 Goals Date Patient Goal Desired Activity /State Personal health goal Functional Status Date Assessment Result Facility 04-23-2025 Are you deaf, or do you have serious difficulty hearing No 04/23/2025 12:18 PM Tiana Alejandra RN No [facility] 04-23-2025 Are you blind, or do you have serious difficulty seeing, even when wearing glasses No 04/23/2025 12:18 PM Tiana Alejandra RN No [facility] 04-23-2025 Do you have serious difficulty walking or climbing stairs Yes 04/23/2025 12:18 PM Tiana Alejandra, REAL Yes [facility] 04-23-2025 Do you have difficul ty dressing or bathing No 04/23/2025 12:18 PM Tiana Alejandra, REAL No [facility] 04-23-2025 Because of a physica l, mental, or emotional condition, do you have difficulty doing errands alone such as visiting a physician's office or shopping Yes 04/23/2025 12:18 PM Tiana Alejandra, REAL Yes [facility] 02-10-2025 Patient Health Quest ionnaire 2 item (PHQ-2) [Reported] [facility] 11-20-2023 Are you deaf, or do you have serious difficulty hearing No 11/20/2023 10:25 AM Jenni Darnell RN No [facility] 11-20-2023 Are you blind, or do you have serious difficulty seeing, even when wearing glasses No 11/20/2023 10:25 AM Jenni Darnell RN No [facility] 11-20-2023 Do you have serious difficulty walking or climbing stairs No 11/20/2023 10:25 AM Jenni Darnell, REAL No [facility] 11-20-2023 Do you have difficul ty dressing or bathing No 11/20/2023 10:25 AM Jenni Darnell, REAL No [facility] 11-20-2023 Because of a physica l, mental, or emotional condition, do you have difficulty doing errands alone such as visiting a physician's office or shopping No 11/20/2023 10:25 AM Jenni Darnell RN No [facility] 03-25-2023 Functional status Activity Abili ty Standby [facility] Work Phone: 03-25-2023 Functional status Ambulates [facility] Work Phone: Mental Status Date Assessment Result Facility 04-23-2025 Because of a physica l, mental, or emotional condition, do you have serious difficulty concentrating, remembering, or making decisions Yes 04/23/2025 12:18 PM EDT Tiana Rivera RN Yes [facility] 11-20-2023 Because of a physica l, mental, or emotional condition, do you have serious difficulty concentrating, remembering, or making decisions No 11/20/2023 10:25 AM Jenni Darnell RN No [facility] 06-20-2023 Cognitive function Voice/Name [facility] Work Phone: 05-28-2023 Cognitive function Level Of Cons ciousness Awake [facility] Work Phone: 03-25-2023 Cognitive function Voice/Name [facility] Work Phone: 03-19-2023 Cognitive function Level Of Cons ciousness Awake;Alert [facility] Work Phone: Clinical Notes 11-06-2007 to 05-14-2025 Telephone Encounter - Pauline Guillen RN - 05/14/2025 8:20 AM EDTTelephone Encounter - Pauline Guillen RN - 05/14/2025 8:20 AM EDTTelephone Encounter - Pauline Guillen RN - 05/14/2025 8:20 AM EDT Note Date & Type Note Facility 05-14-2025 Telephone encounter Note Called and spoke with patients Aric coello. Patient was seen by PCP yesterday they d/c'd the metoprolol. The patient has not taken the metoprolol for a while due to bp being under 100 systolic. Daughter is asking if you would like them to restart it at the lower dose? Pauline Guillen RN [facility] 05-14-2025 Telephone encounter Note She can decrease to 25 (1/2 of the 50 mg) bid. Should not effect the BP unless heart rate is less than 60 bpm Wes Ortiz [facility] 05-14-2025 Miscellaneous Notes Called and spoke with patients Aric coello. Patient was seen by PCP yesterday they [...] her dose. Please review and advise. Pauline Guillen, RN documented in this encounter [facility] 05-12-2025 Telephone encounter Note Relayed message to daughter [facility] Work Phone: 05-12-2025 Miscellaneous Notes Relayed message to daughter Called to review lab results. No answer, LVM to return call to office. Anemia has resolved at this time. No concerns. OK to discontinue PO iron. Can continue to follow with PCP. No need for follow up with hematology. Lisa Clemente APRN.HAND TRIMMER documented in this encounter [facility] 05-12-2025 Telephone encounter Note Called to review lab results. No answer, LVM to return call to office. Anemia has resolved at this time. No concerns. OK to discontinue PO iron. Can continue to follow with PCP. No need for follow up with hematology. Lisa Clemente APRN.HAND TRIMMER [facility] Work Phone: 05-08-2025 Telephone encounter Note [...] Please review and advise. Pauline Guillen RN [facility] 05-08-2025 Note HNO ID: [id number] Author: LISA CLEMENTE, ? Service: ? Author [...] dementia. Ms. Corral lives with her daughter quantitative equity head at her house. Following a brief respite care stay her daughter noticed worsening cognitive decline prompting her to go [facility]. During admission she was found to have PNA, UTI, anemia, and a fractured tailbone following a fall. She had a complete GI work up and was found to have ulcers and was started on Protonix and iron supplementation. 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 She was taken off aspirin. [...] 11/19/2023 With Micra implant; Dr. Strong at [facility] CARDIOVERSION x2 CHOLECYSTECTOMY 10/01/1982 Cholecystectomy MICRA AV LEADLESS PACEMAKER 11/19/2023 With AVN catheter ablation; Dr. Strong at [facility] PERCUTANEOUS CORONARY INTERVENTION 06/01/2023 LAD AND RCA TOTAL ABDOMINAL HYSTERECT W/WO RMVL TUBE OVARY 10/01/1975 Hysterectomy, [facility] Current Outpatient Medications Medication Sig Dispense Refill [...] Heart Brother AF (more content not included)... [facility] 05-01-2025 Telephone encounter Note Spoke with daughter and scheduled next available 05/08 Vanessa Mccauley [facility] 05-01-2025 Miscellaneous Notes Spoke with daughter and scheduled next available 05/08 Vanessa Mccauley Ok to schedule with me. New Anemia Lisa Clemente APRN.HAND TRIMMER Patient's daughgter Aric called and stated that Pat was seen at [facility] ER and was referred to see hematology. Please review chart and advise on scheduling, we will call mode Chandra back to schedule at [phone] DX:Iron Deficiency Anemia Referring: Dr.Michael Jeet Kothari documented in this encounter [facility] 05-01-2025 Telephone encounter Note Ok to schedule with me. New Anemia Lisa Clemente APRN.HAND TRIMMER [facility] Work Phone: 04-29-2025 Telephone encounter Note Patient's daughgter Aric called and stated that Pat was seen at [facility] ER and was referred to see hematology. Please review chart and advise on scheduling, we will call daughter Aric back to schedule at [phone] DX:Iron Deficiency Anemia Referring: Dr.Michael Jeet Pastrana Pss [facility] 04-24-2025 Telephone encounter Note Physician: liza ortiz Call from patient daughter requesting refill. Please E-Scribe Requested Prescriptions Pending Prescriptions Disp Refills furosemide (LASIX) 20 mg tablet 90 tablet Sig: Take 1 tablet by mouth once daily. [facility] Phone #: [phone] Viviana Patel LPN [facility] Work Phone: 04-24-2025 Miscellaneous Notes Physician: liza ortiz Call from patient daughter requesting refill. Please E-Scribe Requested Prescriptions Pending Prescriptions Disp Refills furosemide (LASIX) 20 mg tablet 90 tablet Sig: Take 1 tablet by mouth once daily. Pharmacy Name: [facility] Phone #: [phone] Viviana Patel LPN documented in this encounter [facility] 04-23-2025 Note HNO ID: [id number] Author: MANJU RODRIGUEZ LSW Service: Care Management Author Type: Chalk Machine Operator Type: Care Mgt Progress Note Filed: 04/23/2025 [...] Physician Primary Care Physician Name/Phone: Rajat Patel MD/[phone] Discharge order placed. Patient is discharging home with her daughter who will transport her home. Patient's daughter is aware and agreeable to discharge plan, declining HHC. Rounded with RN. No additional CM needs. SIGNATURE: MARY Patton PATIENT NAME: Amalia Corral DATE: April 23, 2025 TIME: 11:20 AM [facility] 04-22-2025 Note HNO ID: [id number] Author: MANJU RODRIGUEZ LSW Service: Care Management Author Type: Chalk Machine Operator Type: Care Mgt Progress Note Filed: 04/22/2025 09:45 Note Text: CARE MANAGEMENT PROGRESS NOTE SERVICE DATE: 04/22/2025 SERVICE TIME: 9:45 AM LOS: 4 days Needs Prior to Discharge: To Be Determined, Discharge Transportation, Other: See Comment (medical clearance) IMM Follow Up Copy Given: Yes Copy given to:: Patient Iron Launder Operator Iron Launder Operator Name/Relationship: Aric Block DANETTE) Method: By Phone IMM SIGNATURE: MARY Patton PATIENT NAME: Amalia Corral DATE: April 22, 2025 TIME: 9:45 AM [facility] 04-21-2025 Note HNO ID: [id number] Author: MANJU RODRIGUEZ LSW Service: Care Management Author Type: Chalk Machine Operator Type: Care Mgt Progress Note Filed: 04/21/2025 11:28 Note Text: CARE MANAGEMENT DISCHARGE NOTE SERVICE DATE: April 21, 2025 SERVICE TIME: 11:02 AM Admission Date: 04/18/2025 LOS: 3 days Discharge Arrangement Discharge Arrangement: Home with Relative Services Arranged None Caregiver Assessment Caregiver is ready, willing and able to meet the patient's needs as recommended by the inter-professional team: Yes Name of Caregiver: DaughterAric Transportation Arrangements Transportation Arrangements: Car Date of Trip: 04/21/25 Destination: Home Handoff Communication: Handoff to: Primary Care Physician Primary Care Physician Name/Phone: Rajat Patel MD/[phone] Discharge order placed. Patient is discharging home [...] DATE: April 21, 2025 TIME: 11:01 AM [facility] 04-21-2025 Note HNO ID: [id number] Author: MANJU RODRIGUEZ LSW Service: Care Management Author Type: Chalk Machine Operator Type: Care Mgt Progress Note Filed: 04/21/2025 11:00 Note Text: CARE MANAGEMENT PROGRESS NOTE SERVICE DATE: 04/21/2025 SERVICE TIME: 10:56 AM LOS: 3 days Needs Prior to Discharge: To Be Determined, Discharge Transportation, Other: See Comment (medical clearance) [place] of Choice Given: Yes Level of Care [...] DATE: April 21, 2025 TIME: 10:56 AM [facility] 04-20-2025 Note HNO ID: [id number] Author: SAL SANTIAGO MD Service: Hospital Medicine [...] Diagnosis Date Noted Coronary artery disease involving port lions coronary artery of port lions heart without angina pectoris 05/29/2023 Priority: C Coccygeal fracture (HCC) 04/19/2025 Chronic systolic CHF (congestive heart failure) ([facility]) 04/19/2025 Aspiration pneumonia ([facility]) 04/19/2025 Dementia ([facility]) 04/18/2025 Anemia 04/18/2025 Stage 3a chronic kidney disease (HCC) 04/18/2025 Complete heart block (HCC) 11/20/2023 Chronic atrial fibrillation (HCC) 06/01/2023 Type 2 diabetes mellitus, with long-term current use of insulin (HCC) 12/21/2014 Leg blood clot prevention: lovenox SIGNATURE: Sal Santiago MD DATE: 04/20/2025 TIME: 10:43 AM [facility] 04-19-2025 Note HNO ID: [id number] Author: SHILOH PINZON LSW Service: Care Management Author Type: Chalk Machine Operator Type: Care Mgt Initial Assessment Filed: 04/19/2025 [...] Practice Potential Transition Plans Home, Home OT/PT, Intermediate Facility/Intermediate Care Facility, To Be Determined Advance Directives Current Advance Directive: Health Care Power of Bi Tester In Chart: Yes Up To Date and [...] wellness, Increase strength, Ambulate a little better [place] of Choice Explained: [place] of Choice Given: No Reason Not Given: [...] as needed. Recent respite stay d/c from [facility], in [place]-increased confusion and fall at [place]. No hx of SNF. [facility]. No in-home services. Daughter transports. Spouse is also in the home--he has VA aid services--and daughter is also his caregiver. [facility], in [place]. Daughter picks up pt on d/c. CM will follow with d/c planning needs. SIGNATURE: MARY Monk, ACM PATIENT NAME: Amalia Corral DATE: April 19, 2025 TIME: 12:27 PM [facility] 04-19-2025 Note HNO ID: [id number] Author: SAL SANTIAGO MD Service: Hospital Medicine [...] reported by daughter while patient was at [facility] - ?aspiration PNA. Will tx with abx. [...] Diagnosis Date Noted Coronary artery disease involving port lions coronary artery of port lions heart without angina pectoris 05/29/2023 Priority: C Coccygeal fracture ([facility]) 04/19/2025 Chronic systolic CHF (congestive heart failure) ([facility]) 04/19/2025 Aspiration pneumonia ([facility]) 04/19/2025 Dementia ([facility]) 04/18/2025 Anemia 04/18/2025 Stage 3a chronic kidney disease ([facility]) 04/18/2025 Complete heart block ([facility]) 11/20/2023 Chronic atrial fibrillation ([facility]) 06/01/2023 Type 2 diabetes mellitus, with long-term current use of insulin ([facility]) 12/21/2014 Leg blood clot prevention: lovenox SIGNATURE: Sal Santiago MD DATE: 04/19/2025 TIME: 11:52 AM [facility] 04-18-2025 Note SARS-COV-2 (AGENT OF COVID-19) RNA: Not detected INFLUENZA A RNA: Not detected INFLUENZA B RNA: Not detected RESPIRATORY SYNCYTIAL VIRUS (RSV) RNA: Not detected [facility] Comment on above: Performed By: #### 2 [id number], [id number] #### [facility] CLIA [id number] [address] [place] [address] [place] 03-26-2025 Telephone encounter Note Patient phones requesting refills as follows: Requested Prescriptions Pending Prescriptions Disp Refills FARXIGA 10 mg tablet 90 tablet 1 Sig: Take 1 tablet by mouth once daily. Please review and advise. Kristina Trevino LPN [facility] 03-26-2025 Miscellaneous Notes Patient phones requesting refills as follows: Requested Prescriptions Pending Prescriptions Disp Refills FARXIGA 10 mg tablet 90 tablet 1 Sig: Take 1 tablet by mouth once daily. Please review and advise. Kristina Trevino LPN documented in this encounter [facility] 02-10-2025 Evaluation + Plan note Associated [...] in 6 months for routine visit/memory testing [facility] 02-10-2025 Miscellaneous Notes Associated Problem(s): Moderate late [...] routine visit/memory testing documented in this encounter [facility] 02-10-2025 History of Present illness Narrative Review [...] from the original note were not included. [facility] [address] [facility] [address] Dept: [phone] Dept Loc: [phone] Visit type: [facility] Follow Up Visit Reason for Visit: Memory [...] 74 y.o. female who presents to the [facility] for a follow-up visit. The patient is known to me. Established pt, initially seen in 03/2023, diagnosed with early moderate Alzheimer's disease in 07/2023. Last seen in 08/2024- [place] 14 (MIS 2), CDT 5, moderate stage, [...] independently reviewed the Reji Cognitive Assessment from 02/10/2025. Test scanned in [...] bedtime 30 tablet 2 [facility] Short [place] 31G X 8 MM [facility] No current facility-administered medications for this visit. 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 Activities: exercise video 30 min/day, prep food for meals, journaling, cleaning, friends/family visting, talks on phone daily with friends >>01/29/24 cleaning, gets together with friends, goes to [employer] to shop >>08/12/24 Adult Day Program 2 days, will have friends come to visit >>02/10/25 Adult Day Program 2-3 days per week, cleans, does errands with daughter Exercise: exercise 30 min/day Finances: has savings, over $2000, SS income $1900 Healthcare Power of Bi Tester: Yes: mode [employer] Power of Bi Tester: Yes: mode Cabrera Living Will: Yes Guardian: [...] >>04/24/23 Patient and had been living in [place] with another one of their children. Has [...] stays at facilities. Daughter will talk to [facility] Wall [facility] about these things. Patient staying stable on memory test today; daughter noticing some slight decline in function. SW encouraged daughter to bring in Healthcare Power of Bi Tester and living will so that we can [...] now >>02/10/25 same documented in this encounter [facility] 02-10-2025 Instructions MAHAMED Oliva CNP - 02/10/2025 [...] the new medication. documented in this encounter [facility] 02-10-2025 Note Mrs. Corral was se en [...] physical, mental, and social activity - Ex [employer], Silver Sneakers. Recommend routines, schedules, and organization. Recommend getting adequate sleep and eating balanced diet. Continue regular visits with primary care provider to maintain chronic health conditions. Follow-up visit in 6 months for repeat memory testing/routine visit. Call me in 4-6 weeks to let me know how you're doing on the new medication. [facility] 11-19-2024 Note HNO ID: [id number] Author: CHLOE STRONG MD Service: ? Author Type: Physician Type: Progress Notes Filed: 11/19/2024 10:57 Note Text: [facility] SECTION OF CARDIAC PACING and ELECTROPHYSIOLOGY OUTPATIENT VISIT DATE November 19, 2024 OUTPATIENT VISIT TYPE ESTABLISHED PRIMARY CARE PHYSICIAN: Rajat Patel (John) [address] [place] [phone] HISTORY OF PRESENT ILLNESS: 73-year-old female with [...] showed preserved LV systolic function. Interval history: Galina presents for follow-up. She received leadless pacemaker [...] Conjunctivae normal. C (more content not included)... [facility] 11-19-2024 History of Present illness Narrative Images from the original note were not included. [facility] SECTION OF CARDIAC PACING and ELECTROPHYSIOLOGY OUTPATIENT VISIT DATE November 19, 2024 OUTPATIENT VISIT TYPE ESTABLISHED PRIMARY CARE PHYSICIAN: Rajat Patel (Jung) [address] [place] [phone] HISTORY OF PRESENT ILLNESS: 73-year-old female with [...] device interrogations and annual office visits 3. nursing home current use of anticoagulant - ICD9: V58.61, ICD10: Z79.01 - Risk/benefit ratio of continued oral anticoagulation remains favorable. Chloe Strong MD CONTACT INFORMATION: Chloe Strong MD documented in this encounter [facility] 11-19-2024 Note PPM check, (single l ead) Micra system with programming. ID x2. Here for routine PM evaluation. Offers no complaints. Presenting rhythm: GLEASON GEAR GENERATOR @ 73 ppm. Interrogation shows no observations [...] Documents" section. [facility] 09-15-2024 Note HNO ID: [id number] Author: LIZA ORTIZ MD Service: ? Author Type: Physician Type: Progress Notes Filed: 09/15/2024 14:45 Note Text: [facility] SECTION OF REGIONAL CARDIOLOGY Cardiology ([address]) [address] [facility] [id number] OUTPATIENT VISIT DATE 09/15/2024 PRIMARY CARE PHYSICIAN: Rajat Patel (John) [address] [place] [address] HISTORY OF PRESENT ILLNESS: Ms. Corral is [...] 11/19/2023 With Micra implant; Dr. Strong at [facility] CARDIOVERSION x2 CHOLECYSTECTOMY 10/01/1982 Cholecystectomy MICRA AV LEADLESS PACEMAKER 11/19/2023 With AVN catheter ablation; Dr. Strong at [facility] PERCUTANEOUS CORONARY INTERVENTION 06/01/2023 LAD AND RCA [...] AF None Sister Ischemic Heart Disease Brother [place] 64 ALLERGIES: ALLERGIES Allergen Reactions Marco Inhibitors [...] Genitourinary: Negative for (more content not included)... [facility] 08-31-2024 Note Carry All Driver Authen tication Interface Message Text CURRENT STATUS IS EMERGENCY . : Any questions regarding PATIENT CLASS/STATUS should be directed to the Care Management Departments: [facility] [phone] or [facility] [phone] or [facility] [phone]. [facility] 08-22-2024 Telephone encounter Note Patient's request for medication is as follows: Requested Prescriptions Pending Prescriptions Disp Refills clopidogrel (PLAVIX) 75 mg tablet [Pharmacy Med Name: Clopidogrel Bisulfate 75 MG Oral Tablet] 90 tablet 0 Sig: Take 1 tablet by mouth once daily Patient last seen on 07/06/2023. Follow up scheduled on 09/15/2024. Prescription(s) as above. Please process accordingly. Kay Madera LPN [facility] 08-22-2024 Miscellaneous Notes Patient's request for [...] Kay Madera LPN documented in this encounter [facility] 08-12-2024 History of Present illness Narrative Images from the original note were not included. [address] [facility] [place] [address] Dept: [phone] Dept Loc: [phone] Visit type: [facility] Follow Up Visit Reason for Visit: Memory Loss Visit Date: 08/12/2024 Assessment and Plan 1. 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 female who presents to the [facility] for a follow-up visit. The patient is known to me. Established pt, initially seen in 03/2023, diagnosed with early moderate Alzheimer's disease in 07/2023. Last testing done in 12/2023- [place] 13 (MIS 2), CDT 5. Last seen in 03/2024- continued donepezil, started sertraline for mood/anger/crying episodes. History obtained from caregiver(s): Pt is here with her dtr Rick. Memory- Slow progressive decline in short term memory over the past few months since last visit in 03/2024. Function- Going to [facility] twice per week. Pt needs direct [...] bad dreams, paranoid. Advanced directives: Power of Bi Tester- completed but NOT scanned into [employer] Living Will- completed and scanned into [employer] DNR- not discussed today History obtained from patient: Doing well. Not having pain. Mood- good, "better than it was." Not feeling depressed or anxious. Sleep- no issues. Appetite- "too good." Reviewed progress notes completed by ANMOL FERNANDO) [...] DAILY 135 tablet 1 [facility]Care Short [place] 31G X 8 MM [facility] No current facility-administered medications for this visit. 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 Has [...] to daughter about all the services that [facility] can provide, aides, Depends, medical equipment, respite stays at facilities. Daughter will talk to [facility] Wall Cleaner about these things. Patient staying stable on memory test today; daughter noticing some slight decline in function. SW encouraged daughter to bring in Healthcare Power of Bi Tester and living will so that we can [...] daughter manages now documented in this encounter [facility] 08-12-2024 Instructions MAHAMED Oliva CNP - 08/12/2024 11:00 AM EST Mrs. Corral [...] memory testing/routine visit. documented in this encounter [facility] 08-12-2024 Note Mrs. Corral was se en [...] 6 months for repeat memory testing/routine visit. [facility] 07-08-2024 Telephone encounter Note Pt's daughter notified of providers response. She verbalized understanding and is leaning toward not pursuing the GISELE. Will keep Dec appt and call in the interim with any concerns. Ciera Bennett MA [facility] 07-08-2024 Miscellaneous Notes Pt's daughter notified [...] that pt had ECHO dont 06/23 at [facility] and they are telling her that it is worse and that she needs a GISELE. She saw [facility] inadvertently. Pt has dementia and the appt was on the books without the daughters knowledge apparently. ECHO, EKG, and consult obtained from [facility] and scanned into EPIC. Dr. Ortiz will review on Sunday while here at [facility]. Ciera Bennett MA documented in this encounter [facility] 07-07-2024 Telephone encounter Note Per Dr. Ortiz. They were already aware of the mitral valve regurgitation. It is up to the family if they want her to be more fully evaluated with GISELE. He is unsure what benefit it would provide since she is not likely a surgical candidate. Can discuss in more detail at August office visit. Ciera Bennett MA [facility] 07-03-2024 Telephone encounter Note Pts daughter calling to inform provider that pt had ECHO dont 06/23 at [facility] and they are telling her that it is worse and that she needs a GISELE. She saw [facility] inadvertently. Pt has dementia and the appt was on the books without the daughters knowledge apparently. ECHO, EKG, and consult obtained from [facility] and scanned into [employer]. Dr. Ortiz will review on Sunday while here at [facility] site. Ciera Bennett MA [facility] 06-25-2024 Telephone encounter Note PCP has [...] on Sunday if no changes are seen. [facility] 06-25-2024 Miscellaneous Notes PCP has tried niacin [...] with the itching? S: Dtr Rick calling [facility] for pt w/ itching B: Months; YASMANI [...] > 4 weeks) Protocols used: Itching - [id number] documented in this encounter [facility] 06-25-2024 Telephone encounter Note Please advise dtr [...] visit? Any rash associated with the itching? [facility] 06-25-2024 Telephone encounter Note S: Dtr Rick calling [facility] for pt w/ itching B: Months; YASMANI [...] > 4 weeks) Protocols used: Itching - [id number] [facility] 04-29-2024 History of Present illness Narrative Review [...] from the original note were not included. [facility] [address] [address] Dept: [phone] Dept Loc: [phone] Visit type: [facility] Follow Up Visit Reason for Visit: Memory [...] 73 y.o. female who presents to the [facility] for a follow-up visit. The patient is known to me. Initially seen in 03/2023, diagnosed with early moderate Alzheimer's disease in 07/2023. Last seen in 12/2023- [place] (MIS 2), CDT 5, still moderate [...] thereafter 30 tablet 2 [employer] Short [place] 31G X 8 MM [facility] No current facility-administered medications for this visit. [...] to repeat; last testing done in 12/2023- [place] 13 (MIS 2), CDT 5 I spent [...] of this condition. documented in this encounter [facility] 04-29-2024 History of Present illness Narrative Review [...] from the original note were not included. [facility] [address] [facility] [address] Dept: [phone] Dept Loc: [phone] Visit type: [facility] Follow Up Visit Reason for Visit: Memory [...] 73 y.o. female who presents to the [facility] for a follow-up visit. The patient is known to me. Initially seen in 03/2023, diagnosed with early moderate Alzheimer's disease in 07/2023. Last seen in 12/2023- [place] 13 (MIS 2), CDT 5, still moderate [...] thereafter 30 tablet 2 [employer] Short [place] 31G X 8 MM [facility] No current facility-administered medications for this visit. [...] to repeat; last testing done in 12/2023- [place] 13 (MIS 2), CDT 5 I spent [...] of this condition. documented in this encounter [facility] 04-29-2024 Instructions MAHAMED Oliva CNP - 04/29/2024 [...] for medication check. documented in this encounter [facility] 04-29-2024 Instructions MAHAMED Oliva CNP - 04/29/2024 [...] social activity - [facility], [facility] [place]. Recommend routines, schedules, and organization. Recommend getting adequate sleep and eating balanced diet. Continue regular visits with primary care provider to maintain chronic health conditions. 5 M s - supervision/assistance with medications, medical care, meals, money, mobility (falls). Follow-up visit in 3 months for medication check. documented in this encounter [facility] 04-29-2024 Miscellaneous Notes Addended by: IVANNA REN on: 05/02/2024 09:03 AM Modules accepted: Level of Service documented in this encounter [facility] 04-29-2024 Note Addended by: IVANNA REN on: 05/02/2024 09:03 AM Modules accepted: Level of Service [facility] 04-29-2024 Note Addended by: IVANNA REN on: 05/02/2024 09:03 AM Modules accepted: Level of Service [facility] 01-29-2024 History of Present illness Narrative [...] from the original note were not included. [facility] [address] [address] Dept: [phone] Dept Loc: [phone] Visit type: [facility] Follow Up Visit Reason for Visit: Memory [...] 73 y.o. female who presents to the [facility] for a follow-up visit. The patient is known to me. Initially seen in 03/2023 for memory loss x 6 months-1 year, [place] 15 (MIS 3), CDT 5. FSC in [...] issues- Hasn't driven since coming here from [place]. Gets easily startled. Can't find the car [...] needed for chest pain. UltiCare Short [place] 31G X 8 MM [facility] No current facility-administered medications for this visit. [...] score: not done I independently reviewed the [place] Cognitive Assessment from 01/29/2024. 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 Has [...] difficulty Feeding [] [x] [] No issues >>24 unable to cut meat anymore Ambulation [] [...] now on account documented in this encounter [facility] 01-29-2024 Instructions MAHAMED Oliva CNP - 01/29/2024 1:45 PM EDT Mr. Corral [...] social activity - [facility], [facility] [place]. Recommend routines, schedules, and organization. Recommend getting adequate sleep and eating balanced diet. Continue regular visits with primary care provider to maintain chronic health conditions. 5 M s - supervision/assistance with medications, medical care, meals, money, mobility (falls). Follow-up visit in 3 months for medication check. documented in this encounter [facility] 01-23-2024 Telephone encounter Note Noted. Will discuss more when we separate at appointment. [facility] 01-23-2024 Miscellaneous Notes Noted. Will discuss more when we separate at appointment. Name of caller: Rick Contact phone number: [phone] Relationship to Patient: family member patient and daughter Provider: Ivanna Ren Practice: [facility] Chief Complaint/Reason for Call: Rick informing Ivanna Ren patient recently had heart stents and a pace maker put in at [facility] in [place]. Rick just wanted to inform before appointment and states patient gets a little aggravated when Rick goes into detail about it. Best time of day caller can be reached:any Patient advised that office/PCP has 24-48 business hours to return their call: N/A documented in this encounter [facility] 01-23-2024 Telephone encounter Note Name of caller: Rick Contact phone number: [phone] Relationship to Patient: family member patient and daughter Provider: Ivanna Ren Practice: [facility] Chief Complaint/Reason for Call: Rick informing Ivanna Ren patient recently had heart stents and a pace maker put in at [facility] in [place]. Rick just wanted to inform before appointment and states patient gets a little aggravated when Rick goes into detail about it. Best time of day caller can be reached:any Patient advised that office/PCP has 24-48 business hours to return their call: N/A [facility] 01-07-2024 Instructions Liza Ortiz MD - 01/07/2024 11:54 AM EDT We will repeat fasting blood work in 3-4 months documented in this encounter [facility] 01-07-2024 History of Present illness Narrative Images from the original note were not included. [facility] Cardiology ([address]) [address] [facility] [id number] OUTPATIENT VISIT DATE 01/07/2024 PRIMARY CARE PHYSICIAN: Rajat Patel (John) [address] [place] [address] HISTORY OF PRESENT ILLNESS: Ms. Corral is [...] She prefers to follow up at our [facility] location. Today, her daughter accompanies her for [...] 11/19/2023 With Micra implant; Dr. Strong at [facility] CARDIOVERSION x2 CHOLECYSTECTOMY 10/01/1982 Cholecystectomy MICRA AV LEADLESS PACEMAKER 11/19/2023 With AVN catheter ablation; Dr. Strong at [facility] PERCUTANEOUS CORONARY INTERVENTION 06/01/2023 LAD & RCA [...] AF None Sister Ischemic Heart Disease Brother [place] 66 ALLERGIES: ALLERGIES Allergen Reactions Marco Inhibitors [...] placement of a 2.75 x 22 mm [place] stent. The stent was postdilated to 3.0 [...] placement of a 2.75 x 22 mm [place] stent postdilated to 3 mm with a [...] AND RECOMMENDATIONS: 1. Coronary artery disease involving port lions coronary artery of port lions heart without angina pectoris - ICD9: 414.01, [...] Liza Ortiz MD documented in this encounter [facility] 12-06-2023 Telephone encounter Note error [facility] 12-06-2023 Miscellaneous Notes error documented in this encounter [facility] 11-20-2023 Miscellaneous Notes Follow up(s) scheduled. Patient to be notified upon discharge. Amanda Barnes Please arrange annual follow up with Dr. Strong or MAHAMED. Patient underwent implantation of Micra followed by AV yessica catheter ablation with Dr. Strong 11/19/2023. She is being discharged today. Thank you. Do Rodriguez APRN.HAND TRIMMER documented in this encounter [facility] 11-06-2023 Miscellaneous Notes Call placed to pt. Spoke with Daughter Aric. Results and recommendations reviewed with pt per Zulema Tucker CNP. Pt verbalized understanding to decrease the lasix to 20 mg daily. She reports pt has been SOB and fatigues easily with exertion. Pt has no questions at this time. Chang Ford LPN ----- Message from Randi Villa APRN.HAND TRIMMER sent at 11/06/2023 9:31 AM EST ----- [...] cath. Thank you documented in this encounter [facility] 08-31-2023 Miscellaneous Notes Scheduled. Left message with appt date & time. Amanda Barnes Spoke with daughter Aric. Notified of test results and Randi's recommendations. She is agreeable to visit. Marcy العلي RN ----- Message from Randi Villa APRN.HAND TRIMMER sent at 08/27/2023 1:16 PM EST ----- [...] management. Thank you! documented in this encounter [facility] 08-06-2023 History of Present illness Narrative EVENT MONITOR DISPOSABLE PATCH INSTRUCTIONS Patient Name: Amalia Corral [facility] Number: [id number] Skin prepped and cleansed with alcohol Patch secured to prepped area Monitor Activated Serial #: [id number] Patient Instructed: Prescribed order timeframe Bathing guidelines Usage of event button and diary documentation Return of monitor at the end of prescribed order Call with problems [phone] or [phone] ext. [phone] Patient expresses a good understanding of instructions Ciera Bennett MA documented in this encounter [facility] 07-31-2023 History of Present illness Narrative [...] Diet Healthy Nutrition for Older Adults - [facility] Injury Prevention/Home Safety [facility] Home Safety Checklist Medications Medication Safety/Dispensers Sleep Getting a Good Night's Sleep ([facility]) Sleep Hygiene Personal Care Personal Care Tips Bathing Tips Dressing Tips Images from the original note were not included. [facility] [address] [facility] [address] Dept: [phone] Dept Loc: [phone] Visit type: [facility] Family Summary Conference Reason for Visit: Memory [...] for memory loss x 6 months-1 year, [place] 15 (MIS 3), CDT 5, labs and head imaging requested from [facility] from recent admission, concern for early moderate [...] needed for chest pain. [employer]iCare Short [place] 31G X 8 MM [facility] No current facility-administered medications for this visit. [...] found for: "FOLATE" No results found for: "INCYSDOS32" No results found for: "RPR" Imaging: Brain MRI reviewed Testing: I reviewed the [place] CognitiveAssessment from the initial assessment with the [...] for the patient documented in this encounter [facility] 07-31-2023 Instructions MAHAMED Oliva CNP - 07/31/2023 [...] heart/potential procedures. Let me know if the industrial court magistrate clears you for driving. Then we can talk about next steps for returning to driving. Avoiding medications that cause confusion and falls - Tylenol PM, Benadryl Recommend physical, mental, and social activity - [facility], [employer] Sneakers. Recommend routines, schedules, and organization. Recommend getting adequate sleep and eating balanced diet. Continue regular visits with primary care provider to maintain chronic health conditions. 5 M s - assistance with medications, medical care, meals, money, mobility (driving, falls). Follow-up visit in 6 months for repeat memory testing/routine visit. documented in this encounter [facility] 07-06-2023 Miscellaneous Notes Attempts x2 to reach [...] Randi Villa APRN.CNP documented in this encounter [facility] 07-06-2023 Instructions Randi Villa APRN.CNP - [...] the health of your heart. Developed by [employer]. Published by [employer]. Copyright 2014 [employer] and/or one of its subsidiaries. All rights reserved. documented in this encounter [facility] 07-06-2023 Nurse Note Patient states they are not having any cardiac issues presently. documented in this encounter [facility] 07-06-2023 History of Present illness Narrative [...] She prefers to follow up at our [facility] location. Today, her daughter accompanies her for [...] AF None Sister Ischemic Heart Disease Brother [place] 66 Social History Tobacco Use Smoking status: [...] Plan: ASSESSMENT/PLAN: 1. Coronary artery disease involving port lions coronary artery of port lions heart without angina pectoris - ICD9: 414.01, [...] for further management Continue metoprolol 25 mg [id number] elevated continue Eliquis for stroke risk reduction [...] 2023, 10:50 AM documented in this encounter [facility] 06-11-2023 Miscellaneous Notes Images from the original note were not included. Betty Tran 1 hour ago (11:35 AM) [place] Spoke to pts Daughter and scheduled her mom for 4-6 week post stent procedure with DERIC Villa at [facility] on 07/06/23 for 11:00a. Betty Tran June 11, 2023 11:35 AM Call received from patient's daughter Aric for 3 week f/u post stent placement on 06/01/23. Aric states that she spent a couple hours on hold attempting to reach someone to make this appointment and then was transferred to [facility]. Patient is not an established patient in [facility] with Dr. Ortiz. This nurse attempted to reach out to lcuía to help facilitate this appointment. Please reach out to the patient's daughter Aric at [phone]. Pauline Guillen RN documented in this encounter [facility] 06-01-2023 Telephone encounter Note Noted. Will await call back from daughter for scheduling. [facility] 06-01-2023 Miscellaneous Notes Noted. Will await call back from daughter for scheduling. I spoke with the patients daughter. The appointment was cancelled due to the patient being in the hospital. Aric the daughter will call to reschedule at a later date. Left message to reschedule Name of caller: Rick Contact phone number: [phone] Relationship to Patient: family member patient and [...] their call: No documented in this encounter [facility] 06-01-2023 Telephone encounter Note I spoke with the patients daughter. The appointment was cancelled due to the patient being in the hospital. Aric the daughter will call to reschedule at a later date. [facility] 05-31-2023 Telephone encounter Note Left message to reschedule [facility] 05-31-2023 Telephone encounter Note Name of caller: Rick Contact phone number: [phone] Relationship to Patient: family member patient and [...] business hours to return their call: No [facility] 05-29-2023 History of Past i llness Narrative Problem Noted Date Diagnosed Date Resolved Date Chest pain 05/29/2023 01/04/2024 Unstable angina 05/29/2023 01/04/2024 Persistent atrial fibrillation 03/27/2016 01/04/2024 Cellulitis and abscess of toe, unspecified 11/06/2007 10/15/2008 Contact dermatitis and other eczema, due to unspecified cause 10/11/2007 10/15/2008 Ingrowing nail 08/23/2007 10/15/2008 documented as of this encounter (statuses as of 01/07/2024) [facility]23 Discharge summary Author Sanam Stubbs [facility] May 29, 2023 5:04am Note Date/Time May 28, 2023 10 :27pm [facility] Medical Records Department [address] [place] [address] Emergency Department Summary 05/28/23 MR#: [id number] Acct: [id number] Name: AMALIA CORRAL Rep #:[id number] : 1950 72 From: Sanam Stubbs MD [...] Patient was referred to cardiovascular surgery at [facility] and has an appointment in June. We received a phone call from the industrial court magistrate here in town stating the patient was coming back into the emergency room. They recommended work-up and transfer to [facility] if at all possible given her current symptoms. [facility] Medical History Chronic diastolic (congestive) heart failure [...] (coronary artery disease) Brother , Age 65 [place] CAD (coronary artery disease) Atrial fibrillation Myocardial [...] 85.4 H Lymph % (Auto) 6.4 L [place] % (Auto) 7.1 Eos % (Auto) 0.5 [...] Signed: Gordon Tovar MD at 21:46 EDT , EKG Initial EKG: Attestation: I personally [...] normal at 33. Call was placed to [facility]. They are only excepting transfers that require ICU level of care at this time. This was discussed with patient and family at bedside. They are comfortable with any facility capable of caring forthe patient. I spoke with Lucía Dyer patient has been accepted to the cardiac monitor technician floor. Repeat troponin is 25. On repeat [...] Disposition Disposition: Acute Care Hospital Discharge Location: [facility] What to do if you have Problems For any increased pain, shortness of breath, bleeding, nausea or vomiting, chestpain, or any unexpected problems, contact your Primary Care Provider. Call [facility] ([phone]) or report to the closest Emergency Room. Call 911 if necessary. 05/29/23 0504 <Electronically signed by Sanam Stubbs MD> Cosigner Signature (if applicable): CC: Dr. Rajat Patel MD ~ Signed [facility] Work Phone: 1(162) 669-439008-04-2023 History of Present illness Narrative* Ivanna Ren APRN - KANDY - 05/04/2023 12:26 PM EDT Reviewed most recent labs and MRI results from [facility] admission in 03/2023. Pt still [id number] and folate levels drawn to complete work-up for memory loss. Please call pt's daughter to advise her of B12 and folate orders. We can send them to daughter so pt can get these drawn locally before summary visit. documented in this [facility]07-25-2023 History of Present illness Narrative* MAHAMED Oliva CNP - 04/24/2023 10:45 AM EDT Images from the original note were not included. [facility] [address] [facility] [address] Dept: [phone] Dept Loc: [phone] Visit type: [facility] Initial Assessment Visit Date: 04/24/2023 Reason for Visit: Memory Loss Assessment and Plan 1. Memory loss 2. Insomnia, unspecified type - risperiDONE (RisperDAL) 1 MG tablet; Take 0.5 tablets (0.5 mg) by mouth Nightly. Take half tabletnightly for 1 week then half tablet nightly as needed for sleep, Starting Tu04/24/2023, Normal - Mental status change with cognitive deficits in the following areas: Visuospatial/executive function, attention, language, delayed recall, orientation which have been slowly progressive over time with subsequent impairment in function. History and exam are concerning for Alzheimer's Dementia. Have requested labs and head imaging for recent hospitalization at [facility] to complete the assessment. Will review results [...] 72 y.o. female who presents to the [facility] for a comprehensive geriatric assessment. The patient is new to me. Referred to office for memory loss per daughter. No previous PCP or records in [facility] available prior to today's visit. Last saw previous PCP Dr. Payton in 2019. History obtained from caregiver(s): Pt is here with her dtr Rick. Had been living in [place], moved to live with daughter in [place] around 5 weeks ago. Prior to that dtr noticed that she was more forgetful, not returning texts/calls like she normally would. Was admitted to [facility] about 2-3 weeks ago for UTI, was [...] questions - Was missing doctor appointments in [place], was either forgetting to go or cancelling them - Wasn't taking her medications - Had trouble navigating a short drive when daughter came to visit in August 2022; hasn't driven since moving to [place] Severity (as seen by the provider based on caregiver history): moderate, Duration- symptoms started around 6 months-1 year ago, Timing- slowly progressive, all day everyday, worse when she first wakes up when she's tired , somegood days, some bad days, Context- (give details of any "yes" answers) history of stroke- Yes - old stroke found on MRI while she was recently admitted to [facility], happened when she lived down in [place], had an incident of headache and "not [...] "pretty good I hope." Hearing Screen: HHIE-S: 0/40 Able to identify : yes Current events: Current President? Biden Why were we wearing masks? COVID, took her about 30 seconds to recall name of virus Reviewed progress notes completed by ANMOL (KARINE)and social work. No Known Allergies Current Outpatient [...] found for: FOLATE No results found for: [id number] No results found for: RPR Testing: The following tests were performed at today's visit and scanned in to the chart: MoCA score: 15, MIS score: 3 Clock drawing score: 5 PHQ-9 score: 0 KAITLYNN score: not done I independently reviewed the [place] Cognitive Assessment from 04/24/2023. Test scanned in [...] dysphoric mood. The patient is nervous/anxious. 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 Activities: exercise video 30 min/day, prep food for meals, journaling, cleaning, friends/family visting, talks on phone daily with friends Exercise: exercise 30 min/day Finances: has savings, over $2000, income $1900 Healthcare Power of Bi Tester: Yes: mode Cabrera Financial Power of Bi Tester: Yes: mode Cabrera Living Will: Yes Guardian: [...] >>04/24/23 Patient and had been living in [place] with another one of their children.Has moved [...] Diet Healthy Nutrition for Older Adults - [facility] Injury Prevention/Home Safety [facility] Home Safety Checklist Medications Medication Safety/Dispensers Sleep Getting a Good Night's Sleep ([facility]) Sleep Hygiene Personal Care Personal Care Tips Bathing Tips Dressing Tips documented in this [facility]07-25-2023 Instructions* Patient Instructions* MAHAMED Oliva CNP - 04/24/2023 10:45 AM EDT Mrs. Corral [...] up. Would recommend that you see your industrial court magistrate to discuss this to see if your medications need further adjustment. I would NOT recommend driving until the next visit. Return in 4-6 weeks for summary visit. documented in this [facility]06-27-2023 Telephone encounter Note* Telephone Encounter - Karma Knowles - 03/27/2023 2:42 PM EDT Scheduled 04/24. [id number] Miscellaneous Notes* Telephone Encounter - Karma Knowles - 03/27/2023 2:42 PM EDT Scheduled 04/24. * Telephone Encounter - Rupinder Ring - 03/26/2023 10:07 AM EDT Name of caller: Rick Contact phone number: [phone] Relationship to Patient: family member patient and daughter Provider: unassigned Practice: [facility] Chief Complaint/Reason for Call: Patient was in [facility] released yesterday. theytold daughter to call and get services, please call and set up appointment Best time of day caller can be reached: any Patient advised that office/PCP has 24-48 business hours to return their call: Yes documented in this [facility]06-26-2023 Telephone encounter Note* Telephone Encounter - Rupinder Ring - 03/26/2023 10:07 AM EDT Name of caller: Rick Contact phone number: [phone] Relationship to Patient: family member patient and daughter Provider: unassigned Practice: [facility] Chief Complaint/Reason for Call: Patient was in [facility] released yesterday. theytold daughter to call and get services, please call and set up appointment Best time of day caller can be reached: any Patient advised that office/PCP has 24-48 business hours to return their call: Yes [id number] Miscellaneous Notes* Telephone Encounter - Rupinder María Elena - 03/26/2023 10:07 AM EDT Name of caller: Rick Contact phone number: [phone] Relationship to Patient: family member patient and daughter Provider: unassigned Practice: [facility] Chief Complaint/Reason for Call: Patient was in [facility] released yesterday. theytold daughter to call and get services, please call and set up appointment Best time of day caller can be reached: any Patient advised that office/PCP has 24-48 business hours to return their call: Yes documented in this [facility]06-25-[address] Michaud [facility] March 25, 2023 11:16am Note Date/Time March 25, 2023 10:4 6am [facility] Medical Records Department [address] [place] [address] Discharge Summary 03/25/23 1045 MR#: [id number] Acct: [id number] Name: AMALIA CORRAL Rep #:[id number] : 1950 72 From: Geeta Michaud DO PCP: Care Physician,No Primary Status :ADM [facility] Providers Date of Admission: 03/19/23 Date [...] who presented to the emergency department at [facility] on 03/19/2023 via private vehicle due toa [...] atrial fibrillation and had been living in [place] up until recently (4 days ago). She [...] The case was discussed with the on-call industrial court magistrate in the emergency department and they recommended [...] her as he is currently hospitalized at [facility] for a spontaneous head bleed. Family had noted some mild forgetfulness but she had never been diagnosed with any dementiaand was still caring for herself and driving prior to to coming to [place] from [place]. We started some Risperdal to help with [...] 6 PM as she seems to start sundowning at that point. She was able to [...] for Your Visit: Syncope Attending Provider: Geeta Michuad Primary Care Provider: Care Physician,No Primary Consulting Providers: Ricco Rod ; Sharon Wynn Instructions Additional Instructions / Restrictions: 1. Please call the [facility] at [phone] to have further neurocognitive testing after discharge [...] 48 Hrs (Routine) Timeframe: 1 Day Facility: [facility] - Location: Cardiovascular Services Ordered By: Dr. [...] Self Care Charges/Coding Visit Charges Inpatient E&M: 67359 Disch Hosp >30min 03/25/23 1116 <Electronically signed by Geeta Michaud DO> Cosigner Signature (if applicable): CC: Dr. Sharon Wynn MD; Dr. Geeta Michaud DO; No Primary Care Physician~ Signed [facility] Work Phone: 1(184) 694-946506-24-[address] Michaud [facility] March 24, 2023 2:17pm Note Date/Time March 24, 2023 1:59 pm [facility] Medical Records Department [address] [place] [address] Progress Note - Hospitalist 03/24/23 1357 MR#: [id number] Acct: [id number] Name: AMALIA CORRAL Rep #:[id number] : 1950 72 From: Geeta Michaud DO PCP: Care Physician,No Primary Status :ADM IN Location: [place] [address]- Reason for Visit Reason for Visit: Syncope [...] mg twice daily (previous home baseline doses [id number] mg p.o. twice daily of metoprolol and [...] will make referral to geriatric center at [facility] after discharge -Consult neurology to see if [...] -full code Charges/Coding Visit Charges Inpatient E&M: 57361 Subs Hosp L2 03/24/23 1417 <Electronically signed by Geeta Michaud DO> Cosigner Signature (if applicable): CC: ~ Signed [facility] Work Phone: 1(381) 375-661306-24-[address] Wynn [facility] March 24, 2023 12:05pm Note Date/Time March 24, 2023 12:0 5pm [facility] Medical Records Department [address] [place] [address] Progress Note - Cardiology 03/24/23 1158 MR#: [id number] Acct: [id number] Name: AMALIA CORRAL Rep #:[id number] : 1950 72 From: Sharon Wynn MD PCP: Care Physician,No Primary Status :ADM IN Location: [place] [address] Subjective Subjective Denies any complaints. Ventricular rate [...] Cosigner Signature (if applicable): CC: ~ Signed [facility] Work Phone: 1(733) 174-870206-23-[address] Michaud [facility] March 23, 2023 12:02pm Note Date/Time March 23, 2023 11:5 9am [facility] Medical Records Department [address] [place] [address] Progress Note - Hospitalist 03/23/23 1152 MR#: [id number] Acct: [id number] Name: AMALIA CORRAL Rep #:[id number] : 1950 72 From: Geeta Michaud DO PCP: Care Physician,No Primary Status :ADM IN Location: [place] [address] Reason for Visit Reason for Visit: Syncope Subjective Subjective No issues overnight. Mental status is back to baseline and no issues with hallucinations or delirium. Heart rates did elevate to as high as 150 through the night. Substation Wireman restarted amiodarone drip but this has since [...] 75.1 H, Lymph % (Auto) 14.7 L, Piute % (Auto) 9.6, Eos % (Auto) 0.4, [...] mg twice daily (previous home baseline doses [id number] mg p.o. twice daily of metoprolol and [...] -full code Charges/Coding Visit Charges Inpatient E&M: 81303 Subs Hosp L2 03/23/23 1202 <Electronically signed by Geeta Jaswant DO> Cosigner Signature (if applicable): CC: ~ Signed [facility] Work Phone: 1(746) 336-815006-23-[address] Wynn [facility] March 23, 2023 9:57am Note Date/Time March 23, 2023 9:57 am [facility] Medical Records Department [address] [place] [address] Progress Note - Cardiology 03/23/23 0955 MR#: [id number] Acct: [id number] Name: AMALIA CORRAL Rep #:[id number] : 1950 72 From: Sharon Wynn MD PCP: Care Physician,No Primary Status :ADM IN Location: [place] [address] Subjective Subjective Ventricular rate still not optimally [...] 75.1 H, Lymph % (Auto) 14.7 L, Piute % (Auto) 9.6, Eos % (Auto) 0.4, [...] 75.1 H, Lymph % (Auto) 14.7 L, Piute % (Auto) 9.6, Eos % (Auto) 0.4, [...] Cosigner Signature (if applicable): CC: ~ Signed [facility] Work Phone: 1(474) 655-578006-22-[address] Michaud [facility] March 22, 2023 11:31am Note Date/Time March 22, 2023 11:3 1am [facility] Medical Records Department [address] [place] [address] Progress Note - Hospitalist 03/22/23 1122 MR#: [id number] Acct: [id number] Name: AMALIA CORRAL Rep #:[id number] : 1950 72 From: Geeta Michaud DO PCP: Care Physician,No Primary Status :ADM IN Location: [place] [address]- Reason for Visit Reason for Visit: Syncope [...] 74.5 H, Lymph % (Auto) 13.8 L, Piute % (Auto) 10.0, Eos % (Auto) 0.9, [...] -full code Charges/Coding Visit Charges Inpatient E&M: 20737 Subs Hosp L2 03/22/23 1131 <Electronically signed by Geeta Michaud DO> Cosigner Signature (if applicable): CC: ~ Signed [facility] Work Phone: 1(798) 929-474806-22-[address] Wynn [facility] March 22, 2023 10:02am Note Date/Time March 22, 2023 10:0 2am [facility] Medical Records Department [address] [place] [address] Progress Note - Cardiology 03/22/23 0958 MR#: [id number] Acct: [id number] Name: AMALIA CORRAL Rep #:[id number] : 1950 72 From: Sharon Wynn MD PCP: Care Physician,No Primary Status :ADM IN Location: [place] [address] Subjective Subjective Denies any plaints. Heart rate [...] Sl. Cloudy, Urine pH 5.0, Ur Specific Dyke 1.015, Urine Protein 30 H, Urine Glucose [...] 74.5 H, Lymph % (Auto) 13.8 L, Piute % (Auto) 10.0, Eos % (Auto) 0.9, [...] Sl. Cloudy, Urine pH 5.0, Ur Specific Dyke 1.015, Urine Protein 30 H, Urine Glucose [...] 74.5 H, Lymph % (Auto) 13.8 L, Piute % (Auto) 10.0, Eos % (Auto) 0.9, [...] MD at 15:59 EDT , Physical Exam Narrative Comfortable. No apparent [...] Cosigner Signature (if applicable): CC: ~ Signed [facility] Work Phone: 1(468) 762-308206-21-[address] Michaud [facility] March 21, 2023 12:11pm Note Date/Time March 21, 2023 12:1 1pm [facility] Medical Records Department [address] [place] [address] Progress Note - Hospitalist 03/21/23 1156 MR#: [id number] Acct: [id number] Name: AMALIA OCRRAL Juan M Rep #:[id number] : 1950 72 From: Geeta Michaud DO PCP: Care Physician,No Primary Status :ADM IN Location: [place] [address] Reason for Visit Reason for Visit: Syncope [...] in person as she was living in [place]. They had no concerningphone conversations with her [...] (Auto) 75.8 H, Lymph % (Auto)14.1 L, Piute % (Auto) 9.1, Eos % (Auto) 0.1, [...] Sl. Cloudy, Urine pH 5.0, Ur Specific Dyke 1.015, Urine Protein 30 H, Urine Glucose [...] -full code Charges/Coding Visit Charges Inpatient E&M: 68307 [facility] Hosp 03/21/23 1211 <Electronically signed by Geeta Michaud DO> Cosigner Signature (if applicable): CC: ~ Signed [facility] Work Phone: [phone]) 810-180206-21-[address] Wynn [facility] March 21, 2023 10:14am Note Date/Time March 21, 2023 10:1 4am [facility] Medical Records Department [address] [place] [address] Progress Note - Cardiology 03/21/23 1007 MR#: [id number] Acct: [id number] Name: CORRALAMALIA Juan M Rep #:[id number] : 1950 72 From: Sharon Wynn MD PCP: Care Physician,No Primary Status :ADM IN Location: [place] [address] Subjective Subjective Denies any complaints. Overnight she [...] (Auto) 75.8 H, Lymph % (Auto)14.1 L, Piute % (Auto) 9.1, Eos % (Auto) 0.1, [...] 75.8 H, Lymph % (Auto) 14.1 L, Piute % (Auto) 9.1, Eos % (Auto) 0.1, [...] low-dose beta-blockers and calcium channel blockers, then analilia probably need a backup pacemaker because of [...] Cosigner Signature (if applicable): CC: ~ Signed [facility] Work Phone: 1([phone]) 699-959006-20-[address] Michaud [facility] March 20, 2023 1:04pm Note Date/Time March 20, 2023 7:25 am [facility] Medical Records Department [address] [place] [address] Progress Note - Hospitalist 03/20/23 0715 MR#: [id number] Acct: [id number] Name: AMALIA CORRAL Rep #:[id number] : 1950 72 From: Geeta Michaud DO PCP: Care Physician,No Primary Status :ADM IN Location: ICU ICU-1 Reason for Visit Reason for Visit: Syncope Subjective Subjective Mrs. Corral is a 72-year-old white female who presented to emergency department at [facility] on 03/19/2023 via private vehicle due tosyncopal [...] atrial fibrillation and had been living in [place] up until recently (4 days ago). She [...] The case was discussed with the on-call industrial court magistrate for the ER and they recommended transitioning [...] Neut % (Auto) 61.1, Lymph % (Auto) 27.8,Piute % (Auto) 8.9, Eos % (Auto) 1.1, [...] (Auto) 76.1 H, Lymph % (Auto)10.9 L, Piute % (Auto) 12.2 H, Eos % (Auto) [...] Narrative: Older white female lying in bed, cardio tech at bedside finishing echocardiogram, patient appears comfortable [...] is currently n.p.o. but a.m. fasting blood [id number] -SSI every 6 -Accu-Cheks as ordered -We [...] restart when appropriate -Last echo done in 2019 showed pulmonary artery systolic pressures at 26 mmHg History of tobacco abuse -Remote DVT prophylaxis -Continue Eliquis CODE STATUS -full code Charges/Coding Visit Charges Inpatient E&M: 49210 Subs Hosp L2 03/20/23 1303 <Electronically signed by Geeta Michaud DO> Cosigner Signature (if applicable): CC: ~ Signed [facility] Work Phone: 1(359) 575-768006-20-[address] Wynn [facility] March 20, 2023 9:06am Note Date/Time March 20, 2023 9:06 am [facility] Medical Records Department [address] [place] [address] Consultation - Cardiology 03/20/23 0901 MR#: [id number] Acct: [id number] Name: AMALIA CORRAL Rep #:[id number] : [...] metoprolol 150 mg twice daily at home. [facility] Medical History (Updated 03/20/23 @ 09:04 by [...] (coronary artery disease) Brother , Age 65 [place] CAD (coronary artery disease) Atrial fibrillation Myocardial [...] Neut % (Auto) 61.1, Lymph % (Auto) 27.8,Piute % (Auto) 8.9, Eos % (Auto) 1.1, [...] (Auto) 76.1 H, Lymph % (Auto)10.9 L, Piute % (Auto) 12.2 H, Eos % (Auto) [...] % (Auto) 61.1, Lymph % (Auto) 27.8, Piute % (Auto) 8.9, Eos % (Auto) 1.1, [...] 76.1 H, Lymph % (Auto) 10.9 L, Piute % (Auto) 12.2 H, Eos % (Auto) [...] Rod MD; No Primary Care Physician~ Signed [facility] Work Phone: [phone]) [phone] History and physical note Author Dr. Rod [facility] March 20, 2023 7:32am Note Date/Time March 19, 2023 8:28 pm [facility] Medical Records Department [address] [place] [address] H&P Exam - Hospitalist 03/19/232027 MR#: [id number] Acct: [id number] Name: AMALIA CORRAL Rep #:[id number] : 1950 72 From: Ricco Rod MD PCP: Care Physician,No Primary Status :ADM IN Location: ICU ICU07-1 HPI - General General Date of Admission: [...] with her Eliquis. Reportedly she moved from [place] 2 days ago and lives with a daughter. Her was recently flown to [facility] for head bleed. [facility] Medical History (Updated 03/20/23 @ 07:[address] Geeta Michaud, ) Chronic diastolic (congestive) heart failure Chronic kidney [...] (coronary artery disease) Brother , Age 65 [place] CAD (coronary artery disease) Atrial fibrillation Myocardial [...] Neut % (Auto) 61.1, Lymph % (Auto) 27.8,Piute % (Auto) 8.9, Eos % (Auto) 1.1, [...] this time. Charges/Coding Visit Charges Inpatient E&M: 13934 Init Hosp L3 03/20/23 0732 <Electronically signed by Ricco Rod MD> Cosigner Signature (if applicable): CC: Dr. Ricco Rod MD; No Primary Care Physician~ Signed [facility] Work Phone: 1([phone]) 417-199106-20-[address] Stubbs [facility] March 20, 2023 1:09am Note Date/Time March 19, 2023 8:04 pm [facility] Medical Records Department [address] [place] [address] Emergency Department Summary 03/19/23 MR#: [id number] Acct: [id number] Name: AMALIA CORRAL Rep #:[id number] : 1950 72 From: Sanam Stubbs MD PCP: Care Physician,No Primary Status :ADM IN Location: ICU ICU07-1 HPI History of Present Illness Chief Complaint: [...] recent medication changes. Her doctors are in [place] and she just arrived to the area 4 days ago. It does appear patient used to live locally and we do have some old records on her. Patient is anticoagulated on Eliquis and is confident that she has not missed any doses. [facility] Medical History (Updated 03/19/23 @ 20:04 by [...] (coronary artery disease) Brother , Age 65 [place] CAD (coronary artery disease) Atrial fibrillation Myocardial [...] % (Auto) 61.1 Lymph % (Auto) 27.8 Piute % (Auto) 8.9 Eos % (Auto) 1.1 [...] 30-74 minutes (45 mins), Discussing w/Patient &/or Family/Music Executive, Discussing w/Consultants, Arranging Admission or Transfer and [...] Provider] - Disposition Disposition: Acute Care Hospital [facility] What to do if you have Problems For any increased pain, shortness of breath, bleeding, nausea or vomiting, chestpain, or any unexpected problems, contact your Primary Care Provider. Call [facility] ([phone]) or report to the closest Emergency Room. Call 911 if necessary. 03/20/23 010 <Electronically signed by Sanam Stubbs MD> Cosigner Signature (if applicable): CC: No Primary Care Physician ~ Signed [facility] Work Phone: 1([phone]) 413-426702-06-2008 History of Past illness Narrative* Problem Noted Date Diagnosed Date Resolved Date Cellulitis and abscess of toe, unspecified 11/06/2007 10/15/2008 Contact dermatitis and other eczema, due to unspecified cause 10/11/2007 10/15/2008 Ingrowing nail 08/23/2007 10/15/2008 documented as of this encounter (statuses as of 06/06/2023) [facility] History of Past illness Narrative* Problem Noted Date Diagnosed Date Resolved Date Cellulitis and abscess of toe, unspecified 11/06/2007 10/15/2008 Contact dermatitis and other eczema, due to unspecified cause 10/11/2007 10/15/2008 Ingrowing nail 08/23/2007 10/15/2008 documented as of this encounter (statuses as of 06/20/2023) [facility] History of Past illness Narrative* Problem Noted Date Diagnosed Date Resolved Date Cellulitis and abscess of toe, unspecified 11/06/2007 10/15/2008 Contact dermatitis and other eczema, due to unspecified cause 10/11/2007 10/15/2008 Ingrowing nail 08/23/2007 10/15/2008 documented as of this encounter (statuses as of 07/07/2023) [facility] History of Past illness Narrative* Problem Noted Date Diagnosed Date Resolved Date Cellulitis and abscess of toe, unspecified 11/06/2007 10/15/2008 Contact dermatitis and other eczema, due to unspecified cause 10/11/2007 10/15/2008 Ingrowing nail 08/23/2007 10/15/2008 documented as of this encounter (statuses as of 07/07/2023) [facility] History of Past illness Narrative* Problem Noted Date Diagnosed Date Resolved Date Cellulitis and abscess of toe, unspecified 11/06/2007 10/15/2008 Contact dermatitis and other eczema, due to unspecified cause 10/11/2007 10/15/2008 Ingrowing nail 08/23/2007 10/15/2008 documented as of this encounter (statuses as of 08/07/2023) [facility] History of Past illness Narrative* Problem Noted Date Diagnosed Date Resolved Date Cellulitis and abscess of toe, unspecified 11/06/2007 10/15/2008 Contact dermatitis and other eczema, due to unspecified cause 10/11/2007 10/15/2008 Ingrowing nail 08/23/2007 10/15/2008 documented as of this encounter (statuses as of 08/31/2023) [facility] History of Past illness Narrative* Problem Noted Date Diagnosed Date Resolved Date Cellulitis and abscess of toe, unspecified 11/06/2007 10/15/2008 Contact dermatitis and other eczema, due to unspecified cause 10/11/2007 10/15/2008 Ingrowing nail 08/23/2007 10/15/2008 documented as of this encounter (statuses as of 11/20/2023) [facility] History of Past illness Narrative* Problem Noted Date Diagnosed Date Resolved Date Cellulitis and abscess of toe, unspecified 11/06/2007 10/15/2008 Contact dermatitis and other eczema, due to unspecified cause 10/11/2007 10/15/2008 Ingrowing nail 08/23/2007 10/15/2008 documented as of this encounter (statuses as of 11/20/2023) [facility] History of Past illness Narrative* Problem Noted Date Diagnosed Date Resolved Date Cellulitis and abscess of toe, unspecified 11/06/2007 10/15/2008 Contact dermatitis and other eczema, due to unspecified cause 10/11/2007 10/15/2008 Ingrowing nail 08/23/2007 10/15/2008 documented as of this encounter (statuses as of 11/22/2023) [facility] History of Past illness Narrative* Problem Noted Date Diagnosed Date Resolved Date Cellulitis and abscess of toe, unspecified 11/06/2007 10/15/2008 Contact dermatitis and other eczema, due to unspecified cause 10/11/2007 10/15/2008 Ingrowing nail 08/23/2007 10/15/2008 documented as of this encounter (statuses as of 12/10/2023) [facility] History of Past illness Narrative* Problem Noted Date Diagnosed Date Resolved Date Cellulitis and abscess of toe, unspecified 11/06/2007 10/15/2008 Contact dermatitis and other eczema, due to unspecified cause 10/11/2007 10/15/2008 Ingrowing nail 08/23/2007 10/15/2008 documented as of this encounter (statuses as of 12/10/2023) [facility] History of Past illness Narrative* Problem Noted Date Diagnosed Date Resolved Date Cellulitis and abscess of toe, unspecified 11/06/2007 10/15/2008 Contact dermatitis and other eczema, due to unspecified cause 10/11/2007 10/15/2008 Ingrowing nail 08/23/2007 10/15/2008 documented as of this encounter (statuses as of 12/31/2023) [facility] History of Past illness Narrative* Problem Noted Date Diagnosed Date Resolved Date Cellulitis and abscess of toe, unspecified 11/06/2007 10/15/2008 Contact dermatitis and other eczema, due to unspecified cause 10/11/2007 10/15/2008 Ingrowing nail 08/23/2007 10/15/2008 documented as of this encounter (statuses as of 12/31/2023) [facility] Diagnosis Onset Date Resolution Status Bradycardia acute Syncope acute [facility] Work Phone: Evaluation note* Diagnosis Onset Date Resolution Status Bradycardia acute Diastolic dysfunction without heart failure acute E. coli UTI acute Elevated serum creatinine ac louis Hypokalemia acute Left ventricular systolic dysfunction (LVSD) acute Mitral regurgitation acute Sick sinus syndrome acute Syncope acute Toxic metabolic encephalopathy acute Chronic kidney disease (CKD) chronic Essential (primary) hypertension chronic Persistent atrial fibrillation chronic Hypoxia resolved [facility] Work Phone: Evaluation note* Diagnosis Onset Date [...] Persistent atrial fibrillation chronic Sick sinus syndrome [facility] Work Phone: Evaluation note* Diagnosis Memory loss- Primary Insomnia, unspecified type [facility] in [facility] Diagnosis Memory loss- Primary documented [facility]* Diagnosis Onset Date Resolution Status [...] Persistent atrial fibrillation chronic Sick sinus syndrome [facility] Work Phone: Evaluation note* Diagnosis Onset [...] atrial fibrillation chronic Sick sinus syndrome chronic [id number] acute Decreased left ventricular systolic function chronic Essential (primary) hypertension chronic Mitral regurgitation chronic Persistent atrial fibrillation chronic Sick sinus syndrome [facility] Work Phone: Evaluation note* Diagnosis Coronary artery disease involving port lions coronary artery of port lions heart without angina pectoris- Primary Primary hypertension Unspecified essential hypertension Mixed hyperlipidemia Rheumatic mitral valve disease Other and unspecified mitral valve diseases Chronic atrial fibrillation (HCC) Atrial fibrillation Type 2 diabetes mellitus without complication, with long-term current use of insulin ([facility]) [facility] [place] [facility]* Diagnosis PAF (paroxysmal atrial fibrillation) ([facility])- Primary Atrial fibrillation documented in this encounter [facility] note* Diagnosis Onset Date Resolution Status Diastolic [...] atrial fibrillation chronic Sick sinus syndrome chronic [id number] acute Decreased left ventricular systolic function chronic Essential (primary) hypertension chronic Mitral regurgitation chronic Persistent atrial fibrillation chronic Sick sinus syndrome chronic History of coronary artery stent placement acute 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 Essential (primary) hypertension chronic Mitral regurgitation chronic Persistent atrial fibrillation chronic Sick sinus syndrome [facility] Work Phone: Evaluation note* Diagnosis Moderate late onset Alzheimer's dementia without behavioral disturbance, psychotic disturbance, mood disturbance, or anxiety ([facility])- Primary [facility] [place] [facility] Diagnosis Onset Date Resolution Status Decreased [...] atrial fibrillation chronic Sick sinus syndrome chronic [id number] acute Decreased left ventricular systolic function chronic Essential (primary) hypertension chronic Mitral regurgitation chronic Persistent atrial fibrillation chronic Sick sinus syndrome chronic History of coronary artery stent placement acute 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 Essential (primary) hypertension chronic Mitral regurgitation chronic Persistent atrial fibrillation chronic Sick sinus syndrome chronic History of coronary artery stent placement acute 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 Essential (primary) hypertension chronic Mitral regurgitation chronic Persistent atrial fibrillation chronic Sick sinus syndrome [facility] Work Phone: Evaluation note* Diagnosis PAF (paroxysmal atrial fibrillation) (HCC)- Primary Atrial fibrillation [facility] [place] [facility]* Diagnosis Permanent atrial fibrillation (HCC)- Primary Atrial fibrillation [facility] [place] [facility] Diagnosis Onset Date Resolution Status Abnormal cardiovascular stress test acute Decreased left ventricular systolic function chronic 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 Essential (primary) hypertension chronic Mitral regurgitation chronic Persistent atrial fibrillation chronic Sick sinus syndrome chronic [id number] acute Decreased left ventricular systolic function chronic Essential (primary) hypertension chronic Mitral regurgitation chronic Persistent atrial fibrillation chronic Sick sinus syndrome chronic History of coronary artery stent placement acute 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 Essential (primary) hypertension chronic Mitral regurgitation chronic Persistent atrial fibrillation chronic Sick sinus syndrome chronic History of coronary artery stent placement acute 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 Essential (primary) hypertension chronic Mitral regurgitation chronic Persistent atrial fibrillation chronic Sick sinus syndrome [facility] Work Phone: Evaluation note* Diagnosis Onset Date Resolution Status Abnormal cardiovascular stress test acute Decreased left ventricular systolic function chronic 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 Essential (primary) hypertension chronic Mitral regurgitation chronic Persistent atrial fibrillation chronic Sick sinus syndrome chronic [id number] acute Decreased left ventricular systolic function chronic Essential (primary) hypertension chronic Mitral regurgitation chronic Persistent atrial fibrillation chronic Sick sinus syndrome chronic History of coronary artery stent placement acute 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 Essential (primary) hypertension chronic Mitral regurgitation chronic Persistent atrial fibrillation chronic Sick sinus syndrome chronic History of coronary artery stent placement acute 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 Essential (primary) hypertension chronic Mitral regurgitation chronic Persistent atrial fibrillation chronic Sick sinus syndrome chronic History of coronary artery stent placement acute 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 Essential (primary) hypertension chronic Mitral regurgitation chronic Persistent atrial fibrillation chronic Sick sinus syndrome [facility] Work Phone: Evaluation note* Diagnosis Onset Date Resolution Status [id number] acute Decreased left ventricular systolic function chronic Essential (primary) hypertension chronic Mitral regurgitation chronic Persistent atrial fibrillation chronic Sick sinus syndrome chronic History of coronary artery stent placement acute 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 Essential (primary) hypertension chronic Mitral regurgitation chronic Persistent atrial fibrillation chronic Sick sinus syndrome chronic History of coronary artery stent placement acute 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 Essential (primary) hypertension chronic Mitral regurgitation chronic Persistent atrial fibrillation chronic Sick sinus syndrome chronic History of coronary artery stent placement acute 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 Essential (primary) hypertension chronic Mitral regurgitation chronic Persistent atrial fibrillation chronic Sick sinus syndrome chronic [facility] Work Phone: Evaluation note* Diagnosis Persistent atrial fibrillation (HCC)- Primary Atrial fibrillation documented in this encounter [facility] note* Diagnosis CHB (complete heart block) (HCC)- Primary Atrioventricular block, complete documented in this encounter [facility] note* Diagnosis Coronary artery disease involving port lions coronary artery of port lions heart without angina pectoris- Primary Rheumatic mitral valve disease Other and unspecified mitral valve diseases Rheumatic aortic valve insufficiency Permanent atrial fibrillation (HCC) Atrial fibrillation H/O atrioventricular yessica ablation Personal history of surgery to heart and great vessels, presenting hazards to health Pulmonary HTN (HCC) Other chronic pulmonary heart diseases Essential hypertension Unspecified essential hypertension Mixed hyperlipidemia documented in this encounter [facility] note* Diagnosis Moderate late onset Alzheimer's dementia without behavioral disturbance, psychotic disturbance, mood disturbance, or anxiety (HCC)- Primary documented in this encounter [facility] note* Diagnosis Moderate late onset Alzheimer's dementia without behavioral disturbance, psychotic disturbance, mood disturbance, or anxiety (HCC)- Primary documented in this encounter [facility] note* Diagnosis 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)- Primary Anger documented in this encounter [facility] note* Diagnosis 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)- Primary Anger documented in this encounter [facility] note* Diagnosis PAF (paroxysmal atrial fibrillation) (HCC)- Primary Atrial fibrillation [facility] [place] [facility]* Diagnosis Anger 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) [facility] [place] [facility]* Diagnosis 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)- Primary Anger documented in this encounter [facility] note* Diagnosis Coronary artery disease involving port lions coronary artery of port lions heart without angina pectoris documented in this encounter [facility] note* Diagnosis PAF (paroxysmal atrial fibrillation) (HCC)- Primary [facility]rial fibrillation [facility] Atrial fibrillation, unspecified type (HCC) [I48.91]- Primary documented in this encounter [facility] note* Diagnosis Permanent atrial fibrillation (HCC)- Primary Atrial fibrillation Pacemaker Cardiac pacemaker in situ nursing home current use of anticoagulant Long-term (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 of 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 documented in this encounter [facility] noteNo assessment information availableWVeterans Health Administration Work Phone: Evaluation note* Diagnosis 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)- Primary documented in this encounter [facility] note* Diagnosis 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)- Primary 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) documented in this encounter [facility] for referral (narrative)No reason for referral information availableWVeterans Health Administration Work Phone: Chief Complaint and Reason for [...] WITH SYNCOPE 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 S/P [facility] 03-25-23 CHRONIC DIASTOLIC HEART FAILURE CHRONIC DIASTOLIC [...] WITH SYNCOPE 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 S/P [facility] 03-25-23 CHRONIC DIASTOLIC HEART FAILURE CHRONIC DIASTOLIC [...] WITH SYNCOPE 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 S/P [facility] 03-25-23 CHRONIC DIASTOLIC HEART FAILURE CHRONIC DIASTOLIC HEART FAILURE CHRONIC DIASTOLIC HEART FAILURE ABN STRESS PER AR ABNORMAL STRESS TEST STAT BMP SCANNED ORDER CHEST PAIN PTCA or stent AFIB S/P [facility] 06/01 (SCANNED)/[facility] 06/20 PCI W/CORONARY STENTING, NON-STEMI [...] regurgitation Persistent atrial fibrillation Sick sinus syndrome [id number] Decreased left ventricular systolic function Essential (primary) hypertension Mitral regurgitation Persistent atrial fibrillation Sick sinus syndrome History of coronary artery stent placement Coronary artery disease Diastolic dysfunction without heart failure Essential (primary) hypertension Mitral regurgitation Persistent atrial fibrillation Sick sinus syndrome Chief Complaint S/P [facility] 03-25-23 CHRONIC DIASTOLIC HEART FAILURE CHRONIC DIASTOLIC HEART FAILURE CHRONIC DIASTOLIC HEART FAILURE ABN STRESS PER AR ABNORMAL STRESS TEST STAT BMP SCANNED ORDER CHEST PAIN PTCA or stent AFIB S/P [facility] 06/01 (SCANNED)/[facility] 06/20 PCI W/CORONARY STENTING, NON-STEMI [...] regurgitation Persistent atrial fibrillation Sick sinus syndrome [id number] Decreased left ventricular systolic function Essential (primary) [...] CHEST PAIN PTCA or stent AFIB S/P [facility] 06/01 (SCANNED)/[facility] 06/20 PCI W/CORONARY STENTING, NON-STEMI 3 M FU E-\\ORDER 2 W FU PCI W/CORONARY STENTING, NON-STEMI Reason for Visit Abnormal cardiovascu lar stress test Decreased left ventricular systolic function Diastolic dysfunction without heart failure Essential (primary) hypertension Mitral regurgitation Persistent atrial fibrillation Sick sinus syndrome [id number] Decreased left ventricular systolic function Essential (primary) [...] CHEST PAIN PTCA or stent AFIB S/P [facility] 06/01 (SCANNED)/[facility] 06/20 PCI W/CORONARY STENTING, NON-STEMI 3 M FU E-\\ORDER 2 W FU PCI W/CORONARY STENTING, NON-STEMI 4 W FU Reason for Visit Abnormal cardiovascu lar stress test Decreased left ventricular systolic function Diastolic dysfunction without heart failure Essential (primary) hypertension Mitral regurgitation Persistent atrial fibrillation Sick sinus syndrome [id number] Decreased left ventricular systolic function Essential (primary) [...] CHEST PAIN PTCA or stent AFIB S/P [facility] 06/01 (SCANNED)/[facility] 09/20 PCI W/CORONARY STENTING, NON-STEMI 3 M FU E-\\ORDER 2 W FU PCI W/CORONARY STENTING, NON-STEMI 4 W FU Reason for Visit [id number] Decreased left ventricular systolic function Essential (primary) [...] FoundDocuments on File Type Date 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 Advance Directive(s) 06/18/2023 12:36 PM [...] No March 19, 2023 9:18pm Power of Bi Tester No March 19 9:18pm Name of Medical Power of Bi Tester BLOCK-DAUGHTER March 19, 2023 7:12pm Advance Directive Response Recorded Date/ Time Name of Medical Power of Bi Tester UMAIR-MODE March 19, 2023 7:12pm Advance Directives Yes March 19 6:39pm Living Will No March 19, 2023 9:18pm Power of Bi Tester No March 19 9:18pm Advance Directive Response Recorded Date/ Time Name of Medical Power of Bi Tester UMAIR-MODE March 19, 2023 7:12pm Name of Medical Power of Bi Tester yuki May 28, 2023 10:11pm Advance Directives No May 24, 2023 9:23am Living Will Yes May 28 10:11pm Power of Bi Tester Yes May 28, 023 10:11pm Advance Directives on File No Augus t 2022 9:23am Advance Directive Response Recorded Date/ Time Name of Medical Power of Bi Tester BELGICA March 19, 2023 7:12pm Name of Medical Power of Bi Tester yuki May 28, 2023 10:11pm Advance Directives on File Yes Julisa borrego 2022 10:53am Advance Directives on File No Augus t 2022 9:23am Name of Medical Power of Bi Tester ARIC BLOCK June 20, 2023 9:53am Advance Directives No May 24, 2023 9:23am Living Will Yes June 20, 2023 9:53am Power of Bi Tester Yes June 9:53am Advance Directive Response Recorded Date/ Time Name of Medical Power of Bi Tester yuki May 28, 2023 10:11pm Advance Directives on File Yes Julisa borrego 2022 10:53am Advance Directives on File No Augus t 2022 9:23am Name of Medical Power of Bi Tester ARIC BLOCK June 20, 2023 9:53am Advance Directives No May 24, 2023 9:23am Living Will Yes June 20, 2023 9:53am Power of Bi Tester Yes June 9:53am Advance Directive Response Recorded Date/ Time Name of Medical Power of Bi Tester yuki May 28, 2023 9:11pm Advance Directives on File Yes Julisa rivera 2022 9:53am Advance Directives on File No Augus 2022 8:23am Name of Medical Power of Bi Tester ARIC BLOCK June 20, 2023 8:53am Advance Directives No May 24, 2023 8:23am Living Will Yes June 20, 2023 8:53am Power of Bi Tester Yes June 8:53am Advance Directive Response Recorded [...] Dr. Ricco Rod MD Admit Provider, Attending Pro vider Active [...] Dr. Sharon Wynn MD Attending Provider Active Space Planner Relationship Specialty Start Date End Date Rajat Patel [address] [facility] [address] [place] [phone] PCP - General Family Medicine 03/27/23 Team [...] Rajat Patel MD Primary Care Provider Active Space Planner Relationship Specialty Start Date End Date Alfonso Patelic Juan M [address] [place] [phone] PCP - General Family Medicine 03/27/23 Space Planner Relationship Specialty Start Date End Date Alfonso Patelic Juan M [address] [place] [address] PCP - General Family Medicine 03/27/23 Team [...] MD Attending Provider, Referring Pr ovider Active Space Planner Relationship Specialty Start Date End Date Rajat Patel [address] [facility] [address] [place] [address] PCP - General Family Medicine 03/27/23 Space Planner Relationship Specialty Start Date End Date Rajat Patel MD PCP - General Family Medicine 03/27/16 Liza Fitzgerald MD Primary Staff Physician Cardiology 12/17/18 Space Planner Relationship Specialty Start Date End Date Rajat Patel MD PCP - General Family Medicine 03/27/16 Liza Fitzgerald MD Primary Staff Physician Cardiology 12/17/18 Team Status: Inactive Member Role Status Dates Dr. Rajat Patel MD Primary Care Provider, Referring P rovider Active Marybel Aquino KITCHEN SUPERVISOR, KITCHEN SUPERVISOR-C Attending Provider Active Team Status: Inactive [...] Primary Care Provider Active Dr. Jana Merino , Emergency Provider Active Space Planner Relationship Specialty Start Date End Date Rajat Patel MD PCP - General Family Medicine 03/27/16 Liza Fitzgerald MD Primary Staff Physician Cardiology 12/17/18 Space Planner Relationship Specialty Start Date End Date Rajat [...] DO Attending Provider, Emergency Pro vider Active Space Planner Relationship Specialty Start Date End Date Rajat Patel [address] [phone] PCP - General Family Medicine 03/27/23 Team Status: Inactive Member Role Status Dates Dr. Rajat Patel MD Primary Care Provider Active Dr. Sharon Wynn MD Attending Provider Active Liza Ortiz MD Referring Provider Active Space Planner Relationship Specialty Start Date End Date Rajat Patel MD PCP - General Family Medicine 03/27/16 Liza Fitzgerald MD Primary Staff Physician Cardiology 12/17/18 Team Status: Inactive Member Role Status Dates Dr. Rajat Patel MD Primary Care Provider Active MIKAL GONCALVES Attending Provider, Referring Provider Ac tive [...] Provide r, Attending Provider, Referring Provider Active Space Planner Relationship Specialty Start Date End Date Rajat Patel MD PCP - General Family Medicine 03/27/16 Liza Fitzgerald MD Primary Staff Physician Cardiology 12/17/18 Space Planner Relationship Specialty Start Date End Date Rajat Patel MD PCP - General Family Medicine 03/27/16 Liza Fitzgerald MD Primary Staff Physician Cardiology 12/17/18 Space Planner Relationship Specialty Start Date End Date Rajat Patel [address] [facility] [address] [place] [address] PCP - General Family Medicine 03/27/23 Space Planner Relationship Specialty Start Date End Date Rajat Patel MD PCP - General Family Medicine 03/27/16 Liza Fitzgerald MD Primary Staff Physician Cardiology 12/17/18 Space Planner Relationship Specialty Start Date End Date Rajat Patel MD PCP - General Family Medicine 03/27/16 Liza Fitzgerald MD Primary Staff Physician Cardiology 12/17/18 Space Planner Relationship Specialty Start Date End Date Rajat Patel MD PCP - General Family Medicine 03/27/16 Liza Fitzgerald MD Primary Staff Physician Cardiology 12/17/18 Space Planner Relationship Specialty Start Date End Date Rajat Patel MD PCP - General Family Medicine 03/27/16 Liza Fitzgerald MD Primary Staff Physician Cardiology 12/17/18 Space Planner Relationship Specialty Start Date End Date Rajat Patel [address] [facility] [address] [place] [address] PCP - General Family Medicine 03/27/23 Space Planner Relationship Specialty Start Date End Date Rajat Patel [address] [facility] [address] [place] [address] PCP - General Family Medicine 03/27/23 Space Planner Relationship Specialty Start Date End Date Rajat Patel [address] [facility] [address] [place] [address] PCP - General Family Medicine 03/27/23 Space Planner Relationship Specialty Start Date End Date Rajat Patel MD PCP - General Family Medicine 03/27/16 Liza Fitzgerald MD Primary Staff Physician Cardiology 12/17/18 Space Planner Relationship Specialty Start Date End Date Rajat Patel MD PCP - General Family Medicine 03/27/16 Liza Fitzgerald MD Primary Staff Physician Cardiology 12/17/18 Space Planner Relationship Specialty Start Date End Date Rajat Patel [address] [phone] PCP - General Family Medicine 03/27/23 Space Planner Relationship Specialty Start Date End Date Rajat Patel MD PCP - General Family Medicine 03/27/16 Liza Fitzgerald MD Primary Staff Physician Cardiology 12/17/18 Space Planner Relationship Specialty Start Date End Date Rajat Patel MD PCP - General Family Medicine 03/27/16 Liza Fitzgerald MD Primary Staff Physician Cardiology 12/17/18 Space Planner Relationship Specialty Start Date End Date Rajat Patel MD PCP - General Family Medicine 03/27/16 Liza Fitzgerald MD Primary Staff Physician Cardiology 12/17/18 Team Status: Inactive Member Role Status Dates Dr. Rajat Patel MD Primary Care Provider Active Start: September 17, 2024 End: September 17, 2024 Sary Robledo KITCHEN SUPERVISOR, KITCHEN SUPERVISOR-C Attending Provider Active S tart: September 17, 2024 End: September 17, 2024 Sary Robledo KITCHEN SUPERVISOR, KITCHEN SUPERVISOR-C Referring Provider Active S tart: September [...] January 01, 2025 End: January 01, 2025 Space Planner Relationship Specialty Start Date End Date Rajat Patel [address] [facility] [address] [place] [address] PCP - General Family Medicine 03/27/23 Space Planner Relationship Specialty Start Date End Date Rajat Patel MD PCP - General Family Medicine 03/27/16 Liza Fitzgerald MD Primary Staff Physician Cardiology 12/17/18 Space Planner Relationship Specialty Start Date End Date Rajat Patel MD PCP - General Family Medicine 03/27/16 Liza Fitzgerald MD Primary Staff Physician Cardiology 12/17/18 Space Planner Relationship Specialty Start Date End Date Rajat Patel MD PCP - General Family Medicine 03/27/16 Liza Fitzgerald MD Primary Staff Physician Cardiology 12/17/18 Space Planner Relationship Specialty Start Date End Date Rajat Patel MD PCP - General Family Medicine 03/27/16 Liza Fitzgerald MD Primary Staff Physician Cardiology 12/17/18 Cassi Love MD [address] [place] [phone] Gastroenterology 05/08/25 Space Planner Relationship Specialty Start Date End Date Rajat Patel MD PCP - General Family Medicine 03/27/16 Liza Fitzgerald MD Primary Staff Physician Cardiology 12/17/18 Cassi Love MD [facility] [phone] Gastroenterology 05/08/25 Reason for Visit (unrecogniz ed section and content) Reason Onset Date Comments Appointment Request 03/26/2023 Reason Comments Memory Loss Specialty Diagnoses / Procedures Referred By Patito barraza Referred To Contact Geriatric Medicine Diagnoses memory per dtr; recently discharged from [facility]. Procedures geriatric assessment [address] [id number] [id number] Referral ID Status Reason Start Date Expiration Date Visits Re quested Visits Authorized [id number] Closed 03/27/2023 09/23/2023 1 1 Reason Onset [...] or prosecute any alcohol or drug abuse patient.[facility] HospitalIn the event this information is protected by the Federal Confidentiality of Alcohol and Drug Abuse Patient Records regulations: The Federal rules restrict any use of the information to criminally investigate or prosecute any alcohol or drug abuse patient.[facility] HospitalIn the event this information is protected by the Federal Confidentiality of Alcohol and Drug Abuse Patient Records regulations: The Federal rules restrict any use of the information to criminally investigate or prosecute any alcohol or drug abuse patient.[facility] HospitalIn the event this information is protected by the Federal Confidentiality of Alcohol and Drug Abuse Patient Records regulations: The Federal rules restrict any use of the information to criminally investigate or prosecute any alcohol or drug abuse patient.[facility] HospitalIn the event this information is protected by the Federal Confidentiality of Alcohol and Drug Abuse Patient Records regulations: The Federal rules restrict any use of the information to criminally investigate or prosecute any alcohol or drug abuse patient.[facility] HospitalIn the event this information is protected by the Federal Confidentiality of Alcohol and Drug Abuse Patient Records regulations: The Federal rules restrict any use of the information to criminally investigate or prosecute any alcohol or drug abuse patient.[facility] HospitalIn the event this information is protected by the Federal Confidentiality of Alcohol and Drug Abuse Patient Records regulations: The Federal rules restrict any use of the information to criminally investigate or prosecute any alcohol or drug abuse patient.[facility] HospitalIn the event this information is protected by the Federal Confidentiality of Alcohol and Drug Abuse Patient Records regulations: The Federal rules restrict any use of the information to criminally investigate or prosecute any alcohol or drug abuse patient.[facility] HospitalIn the event this information is protected by the Federal Confidentiality of Alcohol and Drug Abuse Patient Records regulations: The Federal rules restrict any use of the information to criminally investigate or prosecute any alcohol or drug abuse patient.[facility] HospitalIn the event this information is protected by the Federal Confidentiality of Alcohol and Drug Abuse Patient Records regulations: The Federal rules restrict any use of the information to criminally investigate or prosecute any alcohol or drug abuse patient.[facility] HospitalIn the event this information is protected by the Federal Confidentiality of Alcohol and Drug Abuse Patient Records regulations: The Federal rules restrict any use of the information to criminally investigate or prosecute any alcohol or drug abuse patient.[facility] HospitalIn the event this information is protected by the Federal Confidentiality of Alcohol and Drug Abuse Patient Records regulations: The Federal rules restrict any use of the information to criminally investigate or prosecute any alcohol or drug abuse patient.[facility] HospitalIn the event this information is protected by the Federal Confidentiality of Alcohol and Drug Abuse Patient Records regulations: The Federal rules restrict any use of the information to criminally investigate or prosecute any alcohol or drug abuse patient.[facility] HospitalIn the event this information is protected by the Federal Confidentiality of Alcohol and Drug Abuse Patient Records regulations: The Federal rules restrict any use of the information to criminally investigate or prosecute any alcohol or drug abuse patient.[facility] HospitalIn the event this information is protected by the Federal Confidentiality of Alcohol and Drug Abuse Patient Records regulations: The Federal rules restrict any use of the information to criminally investigate or prosecute any alcohol or drug abuse patient.[facility] HospitalIn the event this information is protected by the Federal Confidentiality of Alcohol and Drug Abuse Patient Records regulations: The Federal rules restrict any use of the information to criminally investigate or prosecute any alcohol or drug abuse patient.[facility] HospitalIn the event this information is protected by the Federal Confidentiality of Alcohol and Drug Abuse Patient Records regulations: The Federal rules restrict any use of the information to criminally investigate or prosecute any alcohol or drug abuse patient.[facility] HospitalIn the event this information is protected by the Federal Confidentiality of Alcohol and Drug Abuse Patient Records regulations: The Federal rules restrict any use of the information to criminally investigate or prosecute any alcohol or drug abuse patient.[facility] HospitalIn the event this information is protected by the Federal Confidentiality of Alcohol and Drug Abuse Patient Records regulations: The Federal rules restrict any use of the information to criminally investigate or prosecute any alcohol or drug abuse patient.[facility] HospitalIn the event this information is protected by the Federal Confidentiality of Alcohol and Drug Abuse Patient Records regulations: The Federal rules restrict any use of the information to criminally investigate or prosecute any alcohol or drug abuse patient.[facility] HospitalIn the event this information is protected by the Federal Confidentiality of Alcohol and Drug Abuse Patient Records regulations: The Federal rules restrict any use of the information to criminally investigate or prosecute any alcohol or drug abuse patient.[facility] HospitalIn the event this information is protected by the Federal Confidentiality of Alcohol and Drug Abuse Patient Records regulations: The Federal rules restrict any use of the information to criminally investigate or prosecute any alcohol or drug abuse patient.[facility] HospitalIn the event this information is protected by the Federal Confidentiality of Alcohol and Drug Abuse Patient Records regulations: The Federal rules restrict any use of the information to criminally investigate or prosecute any alcohol or drug abuse patient.[facility] HospitalIn the event this information is protected by the Federal Confidentiality of Alcohol and Drug Abuse Patient Records regulations: The Federal rules restrict any use of the information to criminally investigate or prosecute any alcohol or drug abuse patient.[facility] HospitalIn the event this information is protected by the Federal Confidentiality of Alcohol and Drug Abuse Patient Records regulations: The Federal rules restrict any use of the information to criminally investigate or prosecute any alcohol or drug abuse patient.[facility] HospitalIn the event this information is protected by the Federal Confidentiality of Alcohol and Drug Abuse Patient Records regulations: The Federal rules restrict any use of the information to criminally investigate or prosecute any alcohol or drug abuse patient.[facility] HospitalIn the event this information is protected by the Federal Confidentiality of Alcohol and Drug Abuse Patient Records regulations: The Federal rules restrict any use of the information to criminally investigate or prosecute any alcohol or drug abuse patient.[facility] HospitalIn the event this information is protected by the Federal Confidentiality of Alcohol and Drug Abuse Patient Records regulations: The Federal rules restrict any use of the information to criminally investigate or prosecute any alcohol or drug abuse patient.[facility] HospitalIn the event this information is protected by the Federal Confidentiality of Alcohol and Drug Abuse Patient Records regulations: The Federal rules restrict any use of the information to criminally investigate or prosecute any alcohol or drug abuse patient.[facility] Goals (unrecognized section and content) Goals may be documented in a n alternate sectionGoals may be documented in an alternate sectionGoals may be documented in an alternate sectionGoals may be documented in an alternate sectionGoals may be documented in an alternate sectionGoals may be documented in an alternate section INFORMATION SOURCE (unrecogn ized section and content) DATE CREATED AUTHOR 08/23/2023 [facility] DATE CREATED AUTHOR AUTHOR'S ORGANIZ ATION 09/15/2024 [facility] DATE CREATED AUTHOR AUTHOR'S ORGANIZ ATION 02/13/2025 [facility] DATE CREATED AUTHOR AUTHOR'S ORGANIZ ATION 04/21/2025 [facility] DATE CREATED AUTHOR AUTHOR'S ORGANIZ ATION 04/26/2025 [facility] DATE CREATED AUTHOR AUTHOR'S ORGANIZ ATION 05/28/2025 [facility] DATE CREATED AUTHOR AUTHOR'S ORGANIZ ATION 06/10/2025 [facility] DATE CREATED AUTHOR AUTHOR'S ORGANIZ ATION 07/23/2025 [facility] FOR RECORDS PERTAINING TO PATIENTS WHO ARE [...] BE BASED ON THE PRIMARY CLINICAL RECORDS. [facility] provides no warranty or guarantee of the accuracy or completeness of information in this document.
[2025-09-16 08:44] LABS: Hematocrit 32.7 % (37-47); Hemoglobin 10.6 g/dL (12.0-15.0)
[2025-09-16 08:55] LABS: Pro- Brain NATRIURETIC PEPTIDE 2899 pg/mL (<=1800)
[2025-09-17 09:36] LABS: Anion Gap 19 (5-15); BUN 29 mg/dL (4-19); BUN/Creat Ratio 14.9 RATIO (10-20); Calcium,Total 8.5 mg/dL (7.6-11.0); Carbon Dioxide 21.8 mmol/L (21.0-32.0); Chloride 104 mmol/L (98-108); Glucose 92 mg/dL (70-99); Potassium 3.9 mmol/L (3.3-5.1)
== END ==
LOC: OLS.WCC 05:00
PROVIDERS: PCP Family Medicine; Visit Provider Family Medicine
DX: I11.0 Hypertensive heart disease with heart failure (principal); I50.9 Heart failure, unspecified
CPT/HCPCS: 36415; 80048; 83880; 85014; 85018

== ENCOUNTER → 2025-09-17 | Outpatient (CLI) | payer MEDICARE, OTHER, MEDICAID, SELFPAY ==
[2023-06-19 10:34] VITALS: BMI 26.9
--- NOTE | 2025-09-17 11:01 | RAD_ITS ---
PROCEDURE: FOOT MIN 3 VIEWS 09/17/2025 REASON FOR EXAM: PAIN TECHNIQUE: Procedure Code: RADFO Modality: DX Procedure: FOOT MIN 3 VIEWS COMPARISON: None FINDINGS: Spur is seen at the insertion of the Achilles tendon. Joint space narrowing and degenerative changes at the 1st metatarsophalangeal joint. No other bony abnormality is seen. RAD/Foot min 3 Views IMPRESSION: Degenerative changes. No acute abnormality is seen. Reading Location: [facility]
--- NOTE | 2025-09-17 11:01 | RAD_ITS ---
EXAM: XR Cervical Spine, 6 or More Views CLINICAL INDICATION: NECK STIFFNESS TECHNIQUE: Frontal, lateral, oblique and flexion/extension views of the cervical spine. COMPARISON: No relevant prior studies available. FINDINGS: VERTEBRAE: Moderate to severe endplate degenerative changes, disc degeneration and anterior spurring C4-C7. Normal alignment. No acute fracture or significant dynamic instability. DISC SPACES: No acute findings. No significant narrowing. SOFT TISSUES: Unremarkable. RAD/Cerv Spine Obl/Flex/Ext Comp IMPRESSION: 1. No acute fracture or significant dynamic instability. 2. Degenerative changes as above. 3. If symptoms persist, further evaluation with MRI is recommended. Reading Location[facility]
--- NOTE | 2025-09-17 11:01 | RAD_ITS ---
PROCEDURE: ANKLE MIN 3 VIEWS 09/17/2025 REASON FOR EXAM: PAIN TECHNIQUE: Procedure Code: RADANK Modality: DX Procedure: ANKLE MIN 3 VIEWS Laterality: Right ankle COMPARISON: None FINDINGS: Bones: A spur is seen at the insertion of the Achilles tendon. Joints: Normal alignment. Mortise appears intact. No effusion. Soft tissues: Soft tissue swelling. Other: RAD/Ankle min 3 Views IMPRESSION: Soft tissue swelling. Reading Location: [facility]
== END | disposition home or self-care (01) ==
LOC: MTRAD 11:00
PROVIDERS: PCP Family Medicine; Referring Provider Family Medicine; Visit Provider Family Medicine
DX: M79.671 Pain in right foot (principal); M25.571 Pain in right ankle and joints of right foot; M43.6 Torticollis
CPT/HCPCS: 72052; 73610; 73630